=== PATIENT | female | born 1965 | race Caucasian/White ===

== ENCOUNTER 2017-12-24 08:28 | Emergency (ER) | payer MEDICAID ==
[~2017-12-24] VITALS: Ht 157.5 cm; Wt 66.4 kg
[~2017-12-24 08:28] MED LIST: BUSP10TA3 PO; CIPR2.5D18 LEFTEYE; EMOL200L TP; ESCI20TA38 PO; LACT1CAP26 PO; LIDO700A32 TOP; MELO-100 PO; MULT-1179 PO; NAPAOS EACHEYE; PANT-47 PO; TRAZ-143 PO
[2017-12-24 08:48] VITALS: BP 109/61
[2017-12-24] MEDS ORDERED: HYDR-3965 PO (10:05)
== END 2017-12-24 10:16 | disposition home or self-care (01) ==
LOC: ER 08:28
DX: S22.31XA Fracture of one rib, right side, initial encounter for closed fracture (principal); Z79.899 Other long term (current) drug therapy; I10 Essential (primary) hypertension; F41.9 Anxiety disorder, unspecified; F32.9 Major depressive disorder, single episode, unspecified; V29.9XXA Motorcycle rider (driver) (passenger) injured in unspecified traffic accident, initial encounter; Y93.89 Activity, other specified; Y92.89 Other specified places as the place of occurrence of the external cause; Y99.8 Other external cause status
CPT/HCPCS: 71100; 99284

== ENCOUNTER 2018-01-26 07:52 | Emergency (ER) | payer MEDICAID ==
[~2018-01-26] VITALS: Ht 157.5 cm; Wt 66.8 kg
[2018-01-26 07:54] VITALS: BP 113/81
[2018-01-26] MEDS ORDERED: CEPH500C5 PO (08:06)
== END 2018-01-26 08:21 | disposition home or self-care (01) ==
LOC: ER 07:52
DX: L03.032 Cellulitis of left toe (principal); I10 Essential (primary) hypertension; Z79.899 Other long term (current) drug therapy; Z60.2 Problems related to living alone
CPT/HCPCS: 99283; L3260; 29515

== ENCOUNTER 2018-02-01 14:27 | Emergency (ER) | payer MEDICAID ==
[~2018-02-01] VITALS: Ht 157.5 cm; Wt 66.0 kg
[~2018-02-01 14:27] MED LIST changes: +CEPH500C5 PO
[2018-02-01 14:32] VITALS: BP 100/63
[2018-02-01] MEDS ORDERED: CEPH500C5 PO (15:12)
== END 2018-02-01 15:34 | disposition home or self-care (01) ==
LOC: ER 14:27
DX: L03.031 Cellulitis of right toe (principal); I10 Essential (primary) hypertension; Z79.899 Other long term (current) drug therapy; Z60.2 Problems related to living alone
CPT/HCPCS: 99284

== ENCOUNTER 2018-02-04 07:20 | Inpatient (IN) | payer MEDICAID ==
[~2018-02-04] VITALS: Ht 159.3 cm; Wt 67.7 kg
[2018-02-04] MEDS ORDERED: vancomycin/NS 1 GM ADD-VANTAGE 250 ML X 1 DOSE IV ONE (08:15)
[2018-02-04 08:23] LABS: BASOPHILS % (AUTO) 0.4 % (0-1); EOSINOPHILS # (AUTO) 0.1 X10'3 (0-0.9); EOSINOPHILS % (AUTO) 1.1 % (0-6); LYMPHOCYTES # (AUTO) 1.1 X10'3 (1.1-4.8); LYMPHOCYTES % (AUTO) 14.7 % (21-51); MEAN CORPUSCULAR HEMOGLOBIN 35.2 PG (27.0-31.0); MEAN CORPUSCULAR HGB CONC 34.3 % (33.0-36.5); MEAN CORPUSCULAR VOLUME 102.6 FL (78-98); MEAN PLATELET VOLUME 6.4 FL (7.4-10.4); MONOCYTES # (AUTO) 0.7 X10'3 (0-0.9); MONOCYTES % (AUTO) 9.5 % (2-12); NEUTROPHILS # (AUTO) 5.8 X10'3 (1.8-7.7); NEUTROPHILS % (AUTO) 74.3 % (42-75); PLATELET COUNT 355 X10'3 (140-440); RED CELL DISTRIBUTION WIDTH 16.1 % (11.5-14.5); WHITE BLOOD COUNT 7.8 X10'3 (4.5-11.0)
[2018-02-04 08:37] LABS: ALANINE AMINOTRANSFERASE 28 U/L (12-78); ALBUMIN 3.2 G/DL (3.4-5.0); ALBUMIN/GLOBULIN RATIO 0.7 (1.1-1.5); ALKALINE PHOSPHATASE 91 IU/L (46-116); ANION GAP 14 (8-16); ASPARTATE AMINO TRANSFERASE 19 U/L (10-37); BILIRUBIN,TOTAL 0.3 MG/DL (0.1-1.0); BLOOD UREA NITROGEN 9 MG/DL (7-18); BUN/CREATININE RATIO 12.9 (6.6-38.0); CALCIUM 9.2 MG/DL (8.5-10.1); CHLORIDE 102 MMOL/L (99-107); GLUCOSE 100 MG/DL (70-104); MAGNESIUM 1.5 MG/DL (1.5-2.4); POTASSIUM 3.5 MMOL/L (3.5-5.1); SODIUM 140 MMOL/L (135-145); TOTAL CARBON DIOXIDE 24.1 MMOL/L (24-32); TOTAL PROTEIN 7.9 G/DL (6.4-8.2); eGFR 87 ML/MIN
[2018-02-04 08:45] LABS: INR 0.9 INR; PARTIAL THROMBOPLASTIN TIME 26 SECONDS (22-32); PROTHROMBIN TIME 9.7 SECONDS (9.0-12.0)
[2018-02-04] MEDS ORDERED: normal saline 1000ML IV soln IVB ONE (08:55)
[2018-02-04 08:59] LABS: CLARITY,URINE CLOUDY (Clear); COLOR,URINE YELLOW (Yellow); GLUCOSE, URINE NEGATIVE (Neg); KETONES,URINE TRACE mg/dl (Neg); LEUKOCYTE ESTERASE ,URINE SMALL (Neg); NITRITES, URINE POSITIVE (Neg); OCCULT BLOOD,URINE LARGE (Neg); PH,URINE 5.5 (4.8-8.0); PROTEIN,URINE 100 mg/dl (Neg); UROBILINOGEN,URINE 0.2 E.U/dL (0.2-1.0)
[2018-02-04] MEDS ORDERED: piperacillin/tazo 3.375gm/50ml 50 ML IV SCH (09:05)
[2018-02-04 09:06] LABS: UA COLLECTION TYPE CLN CATCH MIDSTREAM
[2018-02-04] MEDS ORDERED: piperacillin/tazo 3.375gm/50ml 50 ML IV ONE (09:10)
[2018-02-04 09:13] LABS: BACTERIA,URINE 4+ /HPF (Neg); MUCUS STRANDS MANY /LPF (Neg); SQUAMOUS EPITHELIAL CELL,UR MANY /LPF (FEW); WBC,URINE 50-100 /HPF (0-4)
[2018-02-04] MEDS ORDERED: morphine 4 MG/ML inj SYRINge IV PRN ×2 (09:20)
[2018-02-04] MEDS ORDERED: ondansetron/PF 4mg/2ml inj IV PRN (09:20)
[2018-02-04] MEDS ORDERED: diphenhydrAMINE 25mg capsule PO PRN (09:20)
[2018-02-04] MEDS ORDERED: magnesium 4gm in 100ml NS 100 ML IV PRN (09:20)
[2018-02-04] MEDS ORDERED: HYDROcodone/acetaminophen 10/325mg tab PO PRN (09:20)
[2018-02-04] MEDS ORDERED: mag hydrox/Alum hydrox/simeth 30ml oral suspension PO PRN (09:20)
[2018-02-04] MEDS ORDERED: magnesium 1gm/100ml D5W IVPB 50 ML IV PRN (09:20)
[2018-02-04] MEDS ORDERED: acetaminophen 325mg tablet PO PRN ×2 (09:20)
[2018-02-04] MEDS ORDERED: magnesium Cl slow-release 64mg tablet PO PRN (09:20)
[2018-02-04] MEDS ORDERED: magnesium hydroxide 30ml (MOM) UD suspension PO PRN (09:20)
[2018-02-04] MEDS ORDERED: potassium Cl 20 mEq SR tablet PO PRN ×2 (09:20)
[2018-02-04] MEDS ORDERED: potassium Cl 40MEQ/NS 500ml 500 ML IV PRN ×2 (09:20)
[2018-02-04 10:02] LABS: URINE AMPHETAMINE SCREEN NEGATIVE (Neg); URINE BARBITUATE SCREEN NEGATIVE (Neg); URINE BENZODIAZEPINES SCREEN NEGATIVE (Neg); URINE CANNABINOID SCREEN NEGATIVE (Neg); URINE COCAINE SCREEN NEGATIVE (Neg); URINE METHADONE SCREEN NEGATIVE (Neg); URINE OPIATE SCREEN NEGATIVE (Neg); URINE PHENCYCLIDINE SCREEN NEGATIVE (Neg)
[2018-02-04] MEDS ORDERED: TOBR5DRO57 OP (10:20)
[2018-02-04] MEDS ORDERED: PRAZ1CAP5 PO (10:20)
[2018-02-04] MEDS ORDERED: KETO5DRO75 OP (10:20)
[2018-02-04] MEDS ORDERED: LORA10TA7 PO (10:20)
[2018-02-04] MEDS ORDERED: BUSP10TA11 PO (10:20)
[2018-02-04] MEDS ORDERED: HYDR-3965 PO (10:20)
[2018-02-04] MEDS ORDERED: LISI-600 PO (10:20)
[2018-02-04] MEDS ORDERED: FLUT16SP18 NAS (10:20)
[2018-02-04] MEDS ORDERED: ZOLP5TAB8 PO (10:22)
[2018-02-04] MEDS ORDERED: haloperidol lactate 5mg/ml inj IM PRN ×2 (11:15→14:40)
[2018-02-04] MEDS ORDERED: LORazepam 2 mg/ml vial IV PRN ×2 (11:15→14:40)
[2018-02-04] MEDS ORDERED: haloperidol 5mg tablet PO PRN ×2 (11:15→14:40)
[2018-02-04] MEDS ORDERED: thiamine inj. 100 MG in normal saline 100ml IV soln 100 ML IV ONE ×2 (11:15→14:40)
[2018-02-04] MEDS: K and/or MAG REPLACEMENT MC SCH (11:51)
[2018-02-04 11:53] LABS: ETHANOL 0.204 GM/DL (0.0-0.010)
[2018-02-04] MEDS: normal saline 1000ml 1,000 ML IV SCH ×2 (12:34→17:20)
[2018-02-04 12:36] VITALS: BP 163/95
[2018-02-04] MEDS: piperacillin-tazo 2.25gm/50ml 50 ML IV SCH ×2 (14:12→20:20)
[2018-02-04] MEDS ORDERED: fluticasone nasal spray 16GM bottle NS PRN (14:30)
[2018-02-04] MEDS ORDERED: hydrALAZINE 20mg/ml inj. IV PRN (14:40)
[2018-02-04] MEDS ORDERED: hydrALAZINE 20mg/ml inj. IV ONE (14:40)
[2018-02-04] MEDS ORDERED: morphine 2 MG/ML inj. syringe IV PRN ×2 (15:09)
[2018-02-04 15:39] VITALS: BP 164/102
[2018-02-04 16:27] VITALS: BP 165/102
[2018-02-04] MEDS ORDERED: gadopentetate dimeglumine 7.5 MMOL/15 ML syringe ONE (17:41)
[2018-02-04 18:00] VITALS: BP 153/99
[2018-02-04 18:05] LABS: CLARITY,URINE CLEAR (Clear); COLOR,URINE STRAW (Yellow); GLUCOSE, URINE NEGATIVE (Neg); KETONES,URINE TRACE mg/dl (Neg); LEUKOCYTE ESTERASE ,URINE NEGATIVE (Neg); NITRITES, URINE NEGATIVE (Neg); OCCULT BLOOD,URINE SMALL (Neg); PH,URINE 5.5 (4.8-8.0); PROTEIN,URINE NEGATIVE (Neg); UROBILINOGEN,URINE 0.2 E.U/dL (0.2-1.0)
[2018-02-04 18:11] LABS: UA COLLECTION TYPE STRAIGHT CATH
[2018-02-04 18:12] LABS: HYALINE CASTS 0-3 /LPF (NEGATIVE); SQUAMOUS EPITHELIAL CELL,UR FEW /LPF (FEW)
[2018-02-04 18:13] LABS: BACTERIA,URINE NONE SEEN /HPF (Neg); WBC,URINE 0-4 /HPF (0-4)
[2018-02-04] MEDS: HYDROcodone/acetaminophen 5mg/325mg tablet PO PRN (19:06)
[2018-02-04] MEDS ORDERED: lactobacillus rhamnosus 10,000 MMU CELLS/CAPSULE PO SCH (20:00)
[2018-02-04 20:20] VITALS: BP 138/92
[2018-02-04] MEDS: prazosin 1mg capsule PO SCH (20:21)
[2018-02-04] MEDS: heparin, porcine 5000 units/ml vial SQ SCH (20:21)
[2018-02-04] MEDS: busPIRone 15mg tablet PO SCH (20:22)
[2018-02-04] MEDS: lactobacillus rhamnosus 10,000 MMU CELLS/CAPSULE PO SCH (20:22)
[2018-02-04] MEDS ORDERED: VANCOMYCIN LEVEL IV ONE (20:30)
[2018-02-04] MEDS: zolpidem 5mg tablet PO PRN (20:32)
[2018-02-04] MEDS: vancomycin/NS 1 GM ADD-VANTAGE 250 ML IV SCH (21:27)
[2018-02-04] MEDS: LORazepam 1 MG tablet PO PRN (22:32)
[2018-02-04 23:29] VITALS: BP 96/57
[2018-02-05] MEDS: piperacillin-tazo 2.25gm/50ml 50 ML IV SCH ×4 (01:28→20:38)
[2018-02-05] MEDS: normal saline 1000ml 1,000 ML IV SCH ×3 (03:17→17:06)
[2018-02-05 05:03] LABS: BASOPHILS # (AUTO) 0.1 X10'3 (0-0.2); BASOPHILS % (AUTO) 1.1 % (0-1); EOSINOPHILS # (AUTO) 0.1 X10'3 (0-0.9); EOSINOPHILS % (AUTO) 1.3 % (0-6); HEMATOCRIT 35.7 % (35.0-45.0); HEMOGLOBIN 12.3 g/dl (12.0-16.0); LYMPHOCYTES % (AUTO) 19.6 % (21-51); MEAN CORPUSCULAR HEMOGLOBIN 35.2 PG (27.0-31.0); MEAN CORPUSCULAR HGB CONC 34.3 % (33.0-36.5); MEAN CORPUSCULAR VOLUME 102.4 FL (78-98); MONOCYTES # (AUTO) 0.6 X10'3 (0-0.9); MONOCYTES % (AUTO) 11.7 % (2-12); NEUTROPHILS # (AUTO) 3.3 X10'3 (1.8-7.7); NEUTROPHILS % (AUTO) 66.3 % (42-75); PLATELET COUNT 302 X10'3 (140-440); RED BLOOD COUNT 3.48 X10'6 (4.20-5.60); RED CELL DISTRIBUTION WIDTH 15.3 % (11.5-14.5)
[2018-02-05 05:11] LABS: INR 0.9 INR; PROTHROMBIN TIME 9.8 SECONDS (9.0-12.0)
[2018-02-05 05:29] LABS: ALANINE AMINOTRANSFERASE 18 U/L (12-78); ALBUMIN 2.5 G/DL (3.4-5.0); ALBUMIN/GLOBULIN RATIO 0.6 (1.1-1.5); ALKALINE PHOSPHATASE 81 IU/L (46-116); AMYLASE 40 U/L (25-115); ANION GAP 11 (8-16); ASPARTATE AMINO TRANSFERASE 16 U/L (10-37); BILIRUBIN,TOTAL 0.6 MG/DL (0.1-1.0); BLOOD UREA NITROGEN 10 MG/DL (7-18); BUN/CREATININE RATIO 14.3 (6.6-38.0); CALCIUM 8.4 MG/DL (8.5-10.1); CHLORIDE 103 MMOL/L (99-107); GLUCOSE 80 MG/DL (70-104); LIPASE 67 U/L (73-393); MAGNESIUM 1.5 MG/DL (1.5-2.4); PHOSPHORUS 4.6 MG/DL (2.3-4.5); POTASSIUM 3.7 MMOL/L (3.5-5.1); SODIUM 139 MMOL/L (135-145); TOTAL CARBON DIOXIDE 25.2 MMOL/L (24-32); TOTAL PROTEIN 6.4 G/DL (6.4-8.2); eGFR 87 ML/MIN
[2018-02-05 07:16] VITALS: BP 124/88
[2018-02-05] MEDS: K and/or MAG REPLACEMENT MC SCH (07:19)
[2018-02-05] MEDS: multivitamins, therapeutics tablet PO SCH (07:25)
[2018-02-05] MEDS: busPIRone 15mg tablet PO SCH ×3 (07:25→20:41)
[2018-02-05] MEDS: pantoprazole 40mg Tablet.DR PO SCH (07:25)
[2018-02-05] MEDS: citalopram 20mg tablet PO SCH (07:25)
[2018-02-05] MEDS: folic acid 1mg tablet PO SCH (07:25)
[2018-02-05] MEDS: lisinopril 10 MG tablet PO SCH (07:25)
[2018-02-05] MEDS: lactobacillus rhamnosus 10,000 MMU CELLS/CAPSULE PO SCH ×2 (07:26→20:37)
[2018-02-05] MEDS: thiamine 100mg tablet PO SCH (07:26)
[2018-02-05] MEDS: heparin, porcine 5000 units/ml vial SQ SCH ×2 (07:26→20:42)
[2018-02-05] MEDS: loratadine 10mg tablet PO SCH (07:26)
[2018-02-05] MEDS: emollient combination-Eucerin 250 ML LOTION TP SCH (07:35)
[2018-02-05] MEDS ORDERED: folic acid 1mg tablet PO SCH (08:00)
[2018-02-05] MEDS ORDERED: thiamine 100mg tablet PO SCH (08:00)
[2018-02-05] MEDS ORDERED: multivitamins, therapeutics tablet PO SCH (08:00)
[2018-02-05] MEDS ORDERED: folic acid inj. 2 MG, thiamine inj. 100 MG, MVI, adult No.4 with vit. K 10 ML in dextro... IV SCH ×4 (08:00)
[2018-02-05] MEDS: vancomycin/NS 1 GM ADD-VANTAGE 250 ML IV SCH ×2 (08:32→21:56)
[2018-02-05] MEDS: LORazepam 1 MG tablet PO PRN (08:36)
[2018-02-05 11:49] VITALS: BP 118/85
[2018-02-05] MEDS: HYDROcodone/acetaminophen 5mg/325mg tablet PO PRN (19:25)
[2018-02-05 20:00] VITALS: BP 139/87
[2018-02-05] MEDS ORDERED: VANCOMYCIN LEVEL IV ONE (20:30)
[2018-02-05] MEDS: prazosin 1mg capsule PO SCH (20:41)
[2018-02-05] MEDS: zolpidem 5mg tablet PO PRN (20:47)
[2018-02-06] VITALS: BP 133/89
[2018-02-06] MEDS: LORazepam 1 MG tablet PO PRN ×2 (00:51→07:24)
[2018-02-06] MEDS: normal saline 1000ml 1,000 ML IV SCH ×2 (01:20→05:06)
[2018-02-06] MEDS: piperacillin-tazo 2.25gm/50ml 50 ML IV SCH ×3 (02:04→13:31)
[2018-02-06] MEDS: HYDROcodone/acetaminophen 5mg/325mg tablet PO PRN ×2 (04:16→11:29)
[2018-02-06 04:39] LABS: BASOPHILS % (AUTO) 0.5 % (0-1); EOSINOPHILS # (AUTO) 0.1 X10'3 (0-0.9); EOSINOPHILS % (AUTO) 1.5 % (0-6); HEMATOCRIT 33.5 % (35.0-45.0); HEMOGLOBIN 11.3 g/dl (12.0-16.0); MEAN CORPUSCULAR HEMOGLOBIN 34.6 PG (27.0-31.0); MEAN CORPUSCULAR HGB CONC 33.8 % (33.0-36.5); MEAN CORPUSCULAR VOLUME 102.3 FL (78-98); MONOCYTES # (AUTO) 0.5 X10'3 (0-0.9); MONOCYTES % (AUTO) 9.3 % (2-12); NEUTROPHILS # (AUTO) 3.5 X10'3 (1.8-7.7); NEUTROPHILS % (AUTO) 69.7 % (42-75); PLATELET COUNT 287 X10'3 (140-440); RED BLOOD COUNT 3.27 X10'6 (4.20-5.60); RED CELL DISTRIBUTION WIDTH 15.8 % (11.5-14.5)
[2018-02-06 05:06] LABS: ALANINE AMINOTRANSFERASE 15 U/L (12-78); ALBUMIN 2.3 G/DL (3.4-5.0); ALBUMIN/GLOBULIN RATIO 0.6 (1.1-1.5); ALKALINE PHOSPHATASE 65 IU/L (46-116); AMYLASE 39 U/L (25-115); ANION GAP 8 (8-16); ASPARTATE AMINO TRANSFERASE 13 U/L (10-37); BILIRUBIN,TOTAL 0.3 MG/DL (0.1-1.0); BLOOD UREA NITROGEN 10 MG/DL (7-18); BUN/CREATININE RATIO 15.9 (6.6-38.0); CHLORIDE 108 MMOL/L (99-107); CREATININE 0.63 MG/DL (0.40-0.90); GLUCOSE 100 MG/DL (70-104); LIPASE 77 U/L (73-393); MAGNESIUM 1.5 MG/DL (1.5-2.4); POTASSIUM 3.6 MMOL/L (3.5-5.1); SODIUM 142 MMOL/L (135-145); TOTAL CARBON DIOXIDE 26.1 MMOL/L (24-32); eGFR > 90 ML/MIN
[2018-02-06 07:00] VITALS: BP 149/97
[2018-02-06] MEDS: loratadine 10mg tablet PO SCH (07:24)
[2018-02-06] MEDS: lactobacillus rhamnosus 10,000 MMU CELLS/CAPSULE PO SCH (07:24)
[2018-02-06] MEDS: pantoprazole 40mg Tablet.DR PO SCH (07:24)
[2018-02-06] MEDS: folic acid 1mg tablet PO SCH (07:24)
[2018-02-06] MEDS: multivitamins, therapeutics tablet PO SCH (07:24)
[2018-02-06] MEDS: thiamine 100mg tablet PO SCH (07:25)
[2018-02-06] MEDS: citalopram 20mg tablet PO SCH (07:25)
[2018-02-06] MEDS: heparin, porcine 5000 units/ml vial SQ SCH (07:25)
[2018-02-06] MEDS: busPIRone 15mg tablet PO SCH ×2 (07:25→12:35)
[2018-02-06] MEDS: lisinopril 10 MG tablet PO SCH (07:25)
[2018-02-06] MEDS: K and/or MAG REPLACEMENT MC SCH (08:00)
[2018-02-06] MEDS: emollient combination-Eucerin 250 ML LOTION TP SCH (09:50)
[2018-02-06 11:07] VITALS: BP 153/86
[2018-02-06] MEDS ORDERED: CEPH500C5 PO (12:43)
[2018-02-06] MEDS ORDERED: HYDR-569 PO (12:44)
[2018-02-06] MEDS ORDERED: LORazepam 1 MG tablet PO PRN (14:40)
[2018-02-06] MEDS ORDERED: LORazepam 2 mg/ml vial IV PRN (14:40)
[2018-02-07] MEDS ORDERED: VANCOMYCIN LEVEL IV ONE (19:30)
[2018-02-08] MEDS ORDERED: LORazepam 1 MG tablet PO PRN (14:40)
[2018-02-08] MEDS ORDERED: LORazepam 2 mg/ml vial IV PRN (14:40)
== END 2018-02-06 16:00 | disposition home or self-care (01) | DRG 383 ==
LOC: ER 07:21 → ED HOLD 09:20 → SUR 3N 12:12
PROVIDERS: ADMIT Family Medicine; ATTEND Family Medicine
DX: L03.032 Cellulitis of left toe (principal); E87.2 Acidosis; E10.51 Type 1 diabetes mellitus with diabetic peripheral angiopathy without gangrene; G30.9 Alzheimer's disease, unspecified; F02.80 Dementia in other diseases classified elsewhere, unspecified severity, without behavioral disturbance, psychotic disturbance, mood disturbance, and anxiety; N39.0 Urinary tract infection, site not specified; F32.9 Major depressive disorder, single episode, unspecified; F41.9 Anxiety disorder, unspecified; I25.10 Atherosclerotic heart disease of native coronary artery without angina pectoris; F10.10 Alcohol abuse, uncomplicated; E78.00 Pure hypercholesterolemia, unspecified; B95.0 Streptococcus, group A, as the cause of diseases classified elsewhere; I10 Essential (primary) hypertension; Z84.1 Family history of disorders of kidney and ureter; Z80.8 Family history of malignant neoplasm of other organs or systems; Z82.49 Family history of ischemic heart disease and other diseases of the circulatory system; Z90.49 Acquired absence of other specified parts of digestive tract; Z85.41 Personal history of malignant neoplasm of cervix uteri; Z79.899 Other long term (current) drug therapy
CPT/HCPCS: 36415; 71045; 73660; 73720; 80053; 80202; 80305; 80320; 81001; 82150; 82948; 83605; 83690; 83735; 84100; 84145; 85025; 85610; 85730; 87040; 87070; 87077; 87088; 87186; 93005; 96365; 97116; 97162; 99285; A4353; A6212; A6258; A6449; A9579; J0360; J1644; J2405; J2543; J3370; J3411; J3490; J7030; J7060

== ENCOUNTER 2018-02-08 07:02 | Emergency (ER) | payer MEDICAID ==
[~2018-02-08] VITALS: Ht 322.6 cm; Wt 67.0 kg
[~2018-02-08 07:02] MED LIST changes: +BUSP10TA11 PO; +FLUT16SP18 NAS; +HYDR-3965 PO; +HYDR-569 PO; +KETO5DRO75 OP; +LISI-600 PO; +LORA10TA7 PO; +PRAZ1CAP5 PO; +TOBR5DRO57 OP; +ZOLP5TAB8 PO
[2018-02-08 07:24] VITALS: BP 141/103
[2018-02-08] MEDS ORDERED: SULF1TAB49 PO (07:44)
== END 2018-02-08 07:55 | disposition home or self-care (01) ==
LOC: ER 07:03
DX: Z48.01 Encounter for change or removal of surgical wound dressing (principal); L08.9 Local infection of the skin and subcutaneous tissue, unspecified; I10 Essential (primary) hypertension; Z79.899 Other long term (current) drug therapy
CPT/HCPCS: 99283

== ENCOUNTER 2018-04-18 19:50 | Emergency (ER) | payer MEDICAID ==
[~2018-04-18] VITALS: Ht 552.4 cm; Wt 62.0 kg
[~2018-04-18 19:50] MED LIST changes: -BUSP10TA3 PO; -CIPR2.5D18 LEFTEYE; -HYDR-3965 PO; -KETO5DRO75 OP; -LIDO700A32 TOP; -MELO-100 PO; -NAPAOS EACHEYE; -TRAZ-143 PO
[2018-04-18 20:12] VITALS: BP 119/87
[2018-04-19] MEDS ORDERED: TRAM50TA2 PO (01:04)
== END 2018-04-18 22:29 | disposition left against medical advice (07) ==
LOC: ER 19:51
DX: F10.239 Alcohol dependence with withdrawal, unspecified (principal); Z53.21 Procedure and treatment not carried out due to patient leaving prior to being seen by health care provider

== ENCOUNTER 2018-04-18 23:12 | Emergency (ER) | payer MEDICAID ==
[~2018-04-18] VITALS: Ht 157.5 cm; Wt 57.5 kg
[2018-04-19] MEDS ORDERED: TRAM50TA2 PO (01:04)
[2018-04-19 01:18] VITALS: BP 124/91
== END 2018-04-19 01:19 | disposition home or self-care (01) ==
LOC: ER 23:15
DX: R10.84 Generalized abdominal pain (principal); I10 Essential (primary) hypertension; F10.20 Alcohol dependence, uncomplicated; Z79.899 Other long term (current) drug therapy; Z60.2 Problems related to living alone; Y90.9 Presence of alcohol in blood, level not specified
CPT/HCPCS: 99283

== ENCOUNTER 2018-04-25 18:58 | Emergency (ER) | payer MEDICAID ==
[~2018-04-25] VITALS: Ht 157.5 cm; Wt 65.0 kg
[~2018-04-25 18:58] MED LIST changes: +TRAM50TA2 PO
[2018-04-25 19:07] VITALS: BP 103/73
== END 2018-04-25 21:57 | disposition home or self-care (01) ==
LOC: ER 18:59
DX: S00.83XA Contusion of other part of head, initial encounter (principal); I10 Essential (primary) hypertension; Z98.890 Other specified postprocedural states; Z79.2 Long term (current) use of antibiotics; Z79.899 Other long term (current) drug therapy; Y04.8XXA Assault by other bodily force, initial encounter; Y93.84 Activity, sleeping; Y92.241 Library as the place of occurrence of the external cause; Y99.8 Other external cause status
CPT/HCPCS: 99282

== ENCOUNTER 2018-05-06 16:26 | Emergency (ER) | payer MEDICAID ==
[~2018-05-06] VITALS: Ht 157.5 cm; Wt 66.4 kg
[~2018-05-06 16:26] MED LIST changes: +HYDR-4383 PO; -HYDR-569 PO
[2018-05-06 16:34] VITALS: BP 152/109
== END 2018-05-06 17:23 | disposition home or self-care (01) ==
LOC: ER 16:27
DX: J02.9 Acute pharyngitis, unspecified (principal); I10 Essential (primary) hypertension; Z98.890 Other specified postprocedural states; Z87.01 Personal history of pneumonia (recurrent); Z79.899 Other long term (current) drug therapy
CPT/HCPCS: 99281

== ENCOUNTER 2018-10-14 12:34 | Emergency (ER) | payer MEDICAID ==
[~2018-10-14] VITALS: Ht 157.5 cm; Wt 65.9 kg
[~2018-10-14 12:34] MED LIST changes: +PHE12.5T PO; -TRAM50TA2 PO
[2018-10-14 12:51] VITALS: BP 118/83
== END 2018-10-14 13:23 | disposition home or self-care (01) ==
LOC: ER 12:35
DX: R42 Dizziness and giddiness (principal); I10 Essential (primary) hypertension; Z98.890 Other specified postprocedural states; Z79.899 Other long term (current) drug therapy
CPT/HCPCS: 99281

== ENCOUNTER 2019-02-22 19:41 | Emergency (ER) | payer MEDICAID ==
[~2019-02-22] VITALS: Ht 157.5 cm; Wt 65.0 kg
[~2019-02-22 19:41] MED LIST changes: -CEPH500C5 PO; -PHE12.5T PO; +PROM12.512 PO
--- NOTE | 2019-02-22 20:10 | NUR ---
Patient is A&Ox3, BILLY and is appropriate. She reports having a hernia repair and bowel resection on 02/[address] Bee at [facility]. She reports abdominal pain, nausea and vomitting today, I will continue to monitor.
[2019-02-22 20:21] LABS: BASOPHILS # (AUTO) 0.1 X10'3 (0-0.2); EOSINOPHILS # (AUTO) 0.1 X10'3 (0-0.9); MEAN PLATELET VOLUME 7.1 FL (7.4-10.4); NEUTROPHILS # (AUTO) 7.1 X10'3 (1.8-7.7)
[2019-02-22 20:22] LABS: BASOPHILS % (AUTO) 1.2 % (0-1); EOSINOPHILS % (AUTO) 0.8 % (0-6); HEMATOCRIT 35.5 % (35.0-45.0); HEMOGLOBIN 12.1 g/dl (12.0-16.0); LYMPHOCYTES # (AUTO) 1.8 X10'3 (1.1-4.8); LYMPHOCYTES % (AUTO) 18.5 % (21-51); MEAN CORPUSCULAR HEMOGLOBIN 33.1 PG (27.0-31.0); MEAN CORPUSCULAR VOLUME 97.2 FL (78-98); MONOCYTES # (AUTO) 0.6 X10'3 (0-0.9); MONOCYTES % (AUTO) 6.2 % (2-12); NEUTROPHILS % (AUTO) 73.3 % (42-75); PLATELET COUNT 970 X10'3 (140-440); RED BLOOD COUNT 3.66 X10'6 (4.20-5.60); WHITE BLOOD COUNT 9.6 X10'3 (4.5-11.0)
[2019-02-22 20:32] LABS: ALANINE AMINOTRANSFERASE 16 U/L (12-78); ALBUMIN 3.2 G/DL (3.4-5.0); ALBUMIN/GLOBULIN RATIO 0.7 (1.1-1.5); ALKALINE PHOSPHATASE 95 IU/L (46-116); ANION GAP 16 (8-16); ASPARTATE AMINO TRANSFERASE 14 U/L (10-37); BILIRUBIN,TOTAL 0.3 MG/DL (0.1-1.0); BLOOD UREA NITROGEN 4 MG/DL (7-18); BUN/CREATININE RATIO 6.8 (6.6-38.0); CALCIUM 9.2 MG/DL (8.5-10.1); CHLORIDE 100 MMOL/L (99-107); CREATININE 0.59 MG/DL (0.40-0.90); GLUCOSE 94 MG/DL (70-104); SODIUM 141 MMOL/L (135-145); TOTAL CARBON DIOXIDE 25.2 MMOL/L (24-32); TOTAL PROTEIN 8.1 G/DL (6.4-8.2); eGFR > 90 ML/MIN
[2019-02-22 20:34] LABS: PARTIAL THROMBOPLASTIN TIME 31 SECONDS (22-32)
[2019-02-22] MEDS ORDERED: HYDROcodone/acetaminophen 5mg/325mg tablet PO ONE ×2 (20:45→23:25)
--- NOTE | 2019-02-22 21:11 | NUR ---
Pending discharge papers, patient is resting comfortably on gurney.
[2019-02-22 21:18] LABS: CLARITY,URINE CLEAR (Clear); COLOR,URINE YELLOW (Yellow); GLUCOSE, URINE NEGATIVE (Neg); KETONES,URINE NEGATIVE (Neg); LEUKOCYTE ESTERASE ,URINE NEGATIVE (Neg); NITRITES, URINE NEGATIVE (Neg); OCCULT BLOOD,URINE SMALL (Neg); PROTEIN,URINE NEGATIVE (Neg); UROBILINOGEN,URINE 0.2 E.U/dL (0.2-1.0)
[2019-02-22 21:22] LABS: UA COLLECTION TYPE VOIDED
[2019-02-22] MEDS ORDERED: iohexol 300mg/ml 100ml inj. ONE (21:22)
[2019-02-22 21:36] LABS: BACTERIA,URINE FEW /HPF (Neg); MUCUS STRANDS NONE SEEN /LPF (Neg); RBC,URINE 0-2 /HPF (0-2); SQUAMOUS EPITHELIAL CELL,UR FEW /LPF (FEW); WBC,URINE 0-4 /HPF (0-4)
--- NOTE | 2019-02-22 21:40 | NUR ---
Patient just back for CT.
[2019-02-22] MEDS ORDERED: normal saline 1000ML IV soln IVB ONE (22:40)
[2019-02-22] MEDS ORDERED: levoFLOXACIN-Levaquin 750MG/D5 150 ML IV ONE (22:40)
--- NOTE | 2019-02-22 22:52 | NUR ---
CALLED DR. PEDRAZA VIA PERSONAL CELL PHONE. Jeramy BOLTON ON PHONE WITH DR. PEDRAZA
[2019-02-22] MEDS ORDERED: piperacillin/tazo 3.375gm/50ml 50 ML IV ONE (22:55)
[2019-02-22] MEDS ORDERED: HYDR-3965 PO (23:24)
--- NOTE | 2019-02-23 00:29 | NUR ---
Patient up to the bathroom
[2019-02-23 00:52] VITALS: BP 109/79
[2019-02-23 10:22] LABS: PLATELET ESTIMATE INCREASED; TOTAL CELLS COUNTED 100
[2019-02-23 10:24] LABS: ANISOCYTOSIS FEW
[2019-02-23 10:25] LABS: HYPERSEGMENTED NEUTROPHILS FEW; POLYCHROMASIA FEW; SPHEROCYTES FEW
== END 2019-02-23 00:53 | disposition home or self-care (01) ==
LOC: ER 19:41
DX: K91.89 Other postprocedural complications and disorders of digestive system (principal); L02.211 Cutaneous abscess of abdominal wall; R10.31 Right lower quadrant pain; R10.32 Left lower quadrant pain; I10 Essential (primary) hypertension; F41.9 Anxiety disorder, unspecified; F32.9 Major depressive disorder, single episode, unspecified; F10.10 Alcohol abuse, uncomplicated; Z85.89 Personal history of malignant neoplasm of other organs and systems; Z98.890 Other specified postprocedural states; Z60.2 Problems related to living alone; Z79.899 Other long term (current) drug therapy; Y90.9 Presence of alcohol in blood, level not specified
CPT/HCPCS: 36415; 71045; 74177; 80053; 81001; 83605; 84145; 85025; 85610; 85730; 87040; 96365; 96367; 99284; J1956; J2543; J7030; Q9967

== ENCOUNTER 2019-03-03 17:46 | Inpatient (IN) | payer MEDICAID ==
[~2019-03-03] VITALS: Ht 157.5 cm; Wt 62.0 kg
[2019-03-03] MEDS ORDERED: normal saline 1000ml 1,000 ML IVB ONE (18:27)
[2019-03-03 18:29] LABS: BASOPHILS % (AUTO) 0.8 % (0-1); EOSINOPHILS % (AUTO) 0 % (0-6); HEMATOCRIT 37.8 % (35.0-45.0); HEMOGLOBIN 12.7 g/dl (12.0-16.0); LYMPHOCYTES # (AUTO) 1.4 X10'3 (1.1-4.8); LYMPHOCYTES % (AUTO) 28.9 % (21-51); MEAN CORPUSCULAR HEMOGLOBIN 33.2 PG (27.0-31.0); MEAN CORPUSCULAR HGB CONC 33.6 g/dL (33.0-36.5); MEAN CORPUSCULAR VOLUME 98.7 FL (78-98); MEAN PLATELET VOLUME 6.3 FL (7.4-10.4); MONOCYTES # (AUTO) 0.3 X10'3 (0-0.9); MONOCYTES % (AUTO) 5.6 % (2-12); NEUTROPHILS # (AUTO) 3.1 X10'3 (1.8-7.7); NEUTROPHILS % (AUTO) 64.7 % (42-75); PLATELET COUNT 411 X10'3 (140-440); RED BLOOD COUNT 3.83 X10'6 (4.20-5.60); RED CELL DISTRIBUTION WIDTH 15.5 % (11.5-14.5); WHITE BLOOD COUNT 4.8 X10'3 (4.5-11.0)
[2019-03-03 18:39] LABS: ALANINE AMINOTRANSFERASE 19 U/L (12-78); ALBUMIN 3.7 G/DL (3.4-5.0); ALBUMIN/GLOBULIN RATIO 0.8 (1.1-1.5); ALKALINE PHOSPHATASE 94 IU/L (46-116); ANION GAP 22 (8-16); ASPARTATE AMINO TRANSFERASE 16 U/L (10-37); BILIRUBIN,TOTAL 0.4 MG/DL (0.1-1.0); BLOOD UREA NITROGEN 10 MG/DL (7-18); BUN/CREATININE RATIO 14.9 (6.6-38.0); CALCIUM 8.8 MG/DL (8.5-10.1); CHLORIDE 99 MMOL/L (99-107); CREATININE 0.67 MG/DL (0.40-0.90); GLUCOSE 75 MG/DL (70-104); POTASSIUM 3.8 MMOL/L (3.5-5.1); SODIUM 141 MMOL/L (135-145); TOTAL CARBON DIOXIDE 19.7 MMOL/L (24-32); TOTAL PROTEIN 8.5 G/DL (6.4-8.2); eGFR > 90 ML/MIN
[2019-03-03 18:42] LABS: CLARITY,URINE SLIGHTLY CLOUDY (Clear); COLOR,URINE YELLOW (Yellow); GLUCOSE, URINE NEGATIVE (Neg); KETONES,URINE >=80 mg/dl (Neg); LEUKOCYTE ESTERASE ,URINE NEGATIVE (Neg); NITRITES, URINE NEGATIVE (Neg); OCCULT BLOOD,URINE LARGE (Neg); PH,URINE 5.5 (4.8-8.0); PROTEIN,URINE 30 mg/dl (Neg); UROBILINOGEN,URINE 0.2 E.U/dL (0.2-1.0)
--- NOTE | 2019-03-03 18:43 | NUR ---
SPOKE WITH DR GENTILE ABOUT SURGICAL HISTORY, PAIN, AND ABSENT BOWEL SOUNDS, HE AUTHORIZED A CT ABD/WITHOUT, SO ORDERED.
[2019-03-03 18:44] LABS: URINE HCG NEGATIVE (NEG)
--- NOTE | 2019-03-03 18:49 | NUR ---
PT TO CT VIA W/C
[2019-03-03 18:57] LABS: UA COLLECTION TYPE NON-SPECIFIED
[2019-03-03 18:58] LABS: BACTERIA,URINE 2+ /HPF (Neg); RBC,URINE 20-50 /HPF (0-2); SQUAMOUS EPITHELIAL CELL,UR MANY /LPF (FEW); WBC,URINE 0-4 /HPF (0-4)
[2019-03-03 18:59] LABS: MUCUS STRANDS MODERATE /LPF (Neg)
[2019-03-03] MEDS ORDERED: normal saline 1000ML IV soln IVB ONE (20:05)
[2019-03-03] MEDS ORDERED: ondansetron/PF 4mg/2ml inj IV ONE (20:05)
[2019-03-03] MEDS ORDERED: ketorolac trometh. 30mg/ml inj. IV ONE (20:25)
[2019-03-03] MEDS ORDERED: fentaNYL/PF 50MCG/1 ML 2ML syringe IV ONE (20:25)
[2019-03-03 20:36] LABS: URINE AMPHETAMINE SCREEN NEGATIVE (Neg); URINE BARBITUATE SCREEN NEGATIVE (Neg); URINE BENZODIAZEPINES SCREEN NEGATIVE (Neg); URINE CANNABINOID SCREEN NEGATIVE (Neg); URINE COCAINE SCREEN NEGATIVE (Neg); URINE METHADONE SCREEN NEGATIVE (Neg); URINE OPIATE SCREEN POSITIVE (Neg); URINE PHENCYCLIDINE SCREEN NEGATIVE (Neg)
[2019-03-03 21:03] LABS: ETHANOL 0.299 GM/DL (0.0-0.010); TROPONIN I < 0.04 NG/ML (0.0-0.05)
[2019-03-03] MEDS ORDERED: proCHLORperazine 10 MG/2 ml inj IV ONE (21:55)
[2019-03-03] MEDS ORDERED: famotidine 20mg tablet PO ONE (21:55)
[2019-03-03] MEDS ORDERED: ESOMEPRAZOLE 40 MG VIAL IV STA (21:55)
[2019-03-03] MEDS ORDERED: thiamine 100mg/ml 2ml inj. IV ONE (22:30)
[2019-03-03] MEDS ORDERED: haloperidol 5mg tablet PO PRN (23:05)
[2019-03-03] MEDS ORDERED: acetaminophen 325mg tablet PO PRN (23:05)
[2019-03-03] MEDS ORDERED: haloperidol lactate 5mg/ml inj IM PRN (23:05)
[2019-03-03] MEDS ORDERED: thiamine inj. 100 MG in normal saline 100ml IV soln 100 ML IV ONE (23:05)
[2019-03-03] MEDS ORDERED: metoclopramide 5 mg/ml inj IV PRN (23:05)
[2019-03-03] MEDS ORDERED: mag hydrox/Alum hydrox/simeth 30ml oral suspension PO PRN (23:05)
[2019-03-03] MEDS ORDERED: magnesium hydroxide 30ml (MOM) UD suspension PO PRN (23:05)
[2019-03-03] MEDS ORDERED: ondansetron/PF 4mg/2ml inj IV PRN (23:05)
[2019-03-03] MEDS ORDERED: LORazepam 1 MG tablet PO PRN (23:05)
[2019-03-03] MEDS ORDERED: LORazepam 2 mg/ml vial IV PRN (23:05)
[2019-03-03] MEDS: normal saline 1000ml 1,000 ML IV SCH (23:19)
[2019-03-03] MEDS ORDERED: NO HOME MEDS (23:23)
[2019-03-04] VITALS (10 sets, daily range): BP systolic 123–159; BP diastolic 68–111
--- NOTE | 2019-03-04 00:50 | NUR ---
pt already on portal system Addendum: 03/04/19 at 0053 by Norma Lai RN Amended: Links added.
[2019-03-04] MEDS: acetaminophen 325mg tablet PO PRN ×2 (01:24→07:33)
[2019-03-04 06:00] LABS: ALBUMIN 2.7 G/DL (3.4-5.0); ANION GAP 14 (8-16); BASOPHILS % (AUTO) 0.4 % (0-1); BLOOD UREA NITROGEN 6 MG/DL (7-18); BUN/CREATININE RATIO 11.5 (6.6-38.0); CHLORIDE 105 MMOL/L (99-107); CREATININE 0.52 MG/DL (0.40-0.90); EOSINOPHILS % (AUTO) 0.2 % (0-6); GLUCOSE 72 MG/DL (70-104); HEMATOCRIT 28.1 % (35.0-45.0); HEMOGLOBIN 9.6 g/dl (12.0-16.0); LYMPHOCYTES % (AUTO) 17.7 % (21-51); MEAN CORPUSCULAR HEMOGLOBIN 33.5 PG (27.0-31.0); MEAN CORPUSCULAR HGB CONC 34.2 g/dL (33.0-36.5); MEAN CORPUSCULAR VOLUME 97.8 FL (78-98); MEAN PLATELET VOLUME 6.7 FL (7.4-10.4); MONOCYTES # (AUTO) 0.5 X10'3 (0-0.9); MONOCYTES % (AUTO) 8.8 % (2-12); NEUTROPHILS # (AUTO) 4.1 X10'3 (1.8-7.7); NEUTROPHILS % (AUTO) 72.9 % (42-75); PLATELET COUNT 242 X10'3 (140-440); POTASSIUM 3.9 MMOL/L (3.5-5.1); RED BLOOD COUNT 2.88 X10'6 (4.20-5.60); RED CELL DISTRIBUTION WIDTH 15.5 % (11.5-14.5); SODIUM 141 MMOL/L (135-145); TOTAL CARBON DIOXIDE 21.6 MMOL/L (24-32); WHITE BLOOD COUNT 5.6 X10'3 (4.5-11.0); eGFR > 90 ML/MIN
--- NOTE | 2019-03-04 06:36 | NUR ---
Problems reprioritized. Patient report given, questions answered & plan of care reviewed with MIRIAN Pedroza. Addendum: 03/04/19 at 0637 by Norma Lai RN Amended: Links added.
[2019-03-04] MEDS: thiamine 100mg tablet PO SCH (07:32)
[2019-03-04] MEDS: normal saline 1000ml 1,000 ML IV SCH ×4 (07:32→22:07)
[2019-03-04] MEDS ORDERED: ESOMEPRAZOLE 40 MG VIAL IV ONE ×2 (08:00→12:30)
[2019-03-04] MEDS ORDERED: MIDAZolam 5mg/5ml vial ONE (14:38)
[2019-03-04] MEDS ORDERED: fentaNYL/PF 50MCG/1 ML 2ML syringe ONE (14:38)
[2019-03-04] MEDS ORDERED: LIDOcaine Viscous 15ml cup ONE (14:39)
--- NOTE | 2019-03-04 16:06 | NUR ---
Malnutrition consult, patient presents with normal muscle strength, patient is NPO unable to assess PO Intake, BMI is normal, no edema, no significant weight loss per documented weight history. Good appetite, wants to eat food. Admitted with upper GI bleed secondary to possible esophagitis per MD note. History of EtOH, receiving thiamine. No malnutrition at this time. Will continue to follow. Addendum: 03/04/19 at [address] Amended: Links added.
--- NOTE | 2019-03-04 18:23 | NUR ---
Patient in room ORTHO 4010. I have received report from Kasia VELA and had the opportunity to ask questions and assume patient care.
[2019-03-05] MEDS: normal saline 1000ml 1,000 ML IV SCH ×2 (04:31→14:58)
[2019-03-05] MEDS: acetaminophen 325mg tablet PO PRN ×2 (05:03→11:49)
[2019-03-05 06:00] VITALS: BP 145/91
--- NOTE | 2019-03-05 06:00 | NUR ---
Patient in room ORTHO 4010. I have received report from ETIENNE VELA and had the opportunity to ask questions and assume patient care.
--- NOTE | 2019-03-05 06:25 | NUR ---
Problems reprioritized. Patient report given, questions answered & plan of care reviewed with Frandy VELA.
[2019-03-05 06:28] LABS: BASOPHILS % (AUTO) 0.4 % (0-1); EOSINOPHILS # (AUTO) 0.1 X10'3 (0-0.9); EOSINOPHILS % (AUTO) 3.4 % (0-6); HEMATOCRIT 30.6 % (35.0-45.0); HEMOGLOBIN 10.5 g/dl (12.0-16.0); LYMPHOCYTES # (AUTO) 0.9 X10'3 (1.1-4.8); LYMPHOCYTES % (AUTO) 32.9 % (21-51); MEAN CORPUSCULAR HEMOGLOBIN 33.2 PG (27.0-31.0); MEAN CORPUSCULAR HGB CONC 34.2 g/dL (33.0-36.5); MEAN CORPUSCULAR VOLUME 97.2 FL (78-98); MEAN PLATELET VOLUME 7.1 FL (7.4-10.4); MONOCYTES # (AUTO) 0.4 X10'3 (0-0.9); MONOCYTES % (AUTO) 14.6 % (2-12); NEUTROPHILS # (AUTO) 1.3 X10'3 (1.8-7.7); NEUTROPHILS % (AUTO) 48.7 % (42-75); PLATELET COUNT 204 X10'3 (140-440); RED BLOOD COUNT 3.15 X10'6 (4.20-5.60); RED CELL DISTRIBUTION WIDTH 15.4 % (11.5-14.5); WHITE BLOOD COUNT 2.7 X10'3 (4.5-11.0)
[2019-03-05 06:37] LABS: ALBUMIN 2.9 G/DL (3.4-5.0); ANION GAP 12 (8-16); BLOOD UREA NITROGEN 2 MG/DL (7-18); BUN/CREATININE RATIO 4.1 (6.6-38.0); CALCIUM 8.5 MG/DL (8.5-10.1); CHLORIDE 104 MMOL/L (99-107); CREATININE 0.49 MG/DL (0.40-0.90); GLUCOSE 120 MG/DL (70-104); SODIUM 141 MMOL/L (135-145); TOTAL CARBON DIOXIDE 24.8 MMOL/L (24-32); eGFR > 90 ML/MIN
[2019-03-05 06:53] LABS: POTASSIUM 2.9 MMOL/L (3.5-5.1)
--- NOTE | 2019-03-05 07:11 | NUR ---
PAGER ID: [phone] MESSAGE: KIMBERLY [phone] RE: OTILIA [id number] CRITICAL K 2.9, WILL PLACE ON PROTOCOL.
[2019-03-05] MEDS ORDERED: potassium Cl 20 mEq SR tablet PO PRN (07:15)
[2019-03-05] MEDS ORDERED: potassium CL 10mEq/100ml bag 100 ML IV PRN (07:15)
[2019-03-05] MEDS ORDERED: pantoprazole 40mg Tablet.DR PO SCH (07:30)
[2019-03-05 07:43] LABS: TOTAL CELLS COUNTED 100
[2019-03-05 07:44] LABS: ANISOCYTOSIS 1+; PLATELET ESTIMATE NORMAL
[2019-03-05] MEDS: thiamine 100mg tablet PO SCH (07:53)
[2019-03-05] MEDS: potassium Cl 20 mEq SR tablet PO PRN ×3 (07:53→15:28)
[2019-03-05] MEDS ORDERED: ESOMEPRAZOLE 40 MG VIAL IV SCH (08:00)
[2019-03-05 10:00] VITALS: BP 156/102
[2019-03-05] MEDS ORDERED: PANT-47 PO (10:34)
--- NOTE | 2019-03-05 15:35 | NUR ---
PATIENT DISCHARGED SAFELY WITH SPOUSE WITH ALL BELONGINGS IN POSSESSION. NURA DELIVERED PRESCRIPTION. PATIENT VERBALIZES UNDERSTANDING OF ALL DISCHARGE INSTRUCTIONS.
== END 2019-03-05 15:45 | disposition home or self-care (01) | DRG 241 ==
LOC: ER 17:47 → ORTHO 4S 03-04 00:30 → CMPBEDREQ 03-04 00:33 → ORTHO 4S 03-04 06:49
PROVIDERS: ADMIT Hospitalist; ATTEND Family Medicine
PROC: 0DB48ZX Excision of Esophagogastric Junction, Via Natural or Artificial Opening Endoscopic, Diagnostic (ICD-10-PCS; principal; 2019-03-04)
PROC: 0DB68ZX Excision of Stomach, Via Natural or Artificial Opening Endoscopic, Diagnostic (ICD-10-PCS; 2019-03-04)
DX: K29.01 Acute gastritis with bleeding (principal); E87.2 Acidosis; E86.0 Dehydration; K44.9 Diaphragmatic hernia without obstruction or gangrene; K21.0 Gastro-esophageal reflux disease with esophagitis; K92.0 Hematemesis; F10.129 Alcohol abuse with intoxication, unspecified; I10 Essential (primary) hypertension; F32.9 Major depressive disorder, single episode, unspecified; F41.9 Anxiety disorder, unspecified; K22.8 Other specified diseases of esophagus; Z82.49 Family history of ischemic heart disease and other diseases of the circulatory system; Z85.41 Personal history of malignant neoplasm of cervix uteri; Z84.89 Family history of other specified conditions; Z71.41 Alcohol abuse counseling and surveillance of alcoholic
CPT/HCPCS: 36415; 43239; 74176; 80048; 80053; 80305; 80320; 81001; 81025; 83605; 84145; 84484; 85025; 85610; 87040; 87081; 96361; 96365; 96375; 99152; 99285; A4620; G0378; J0780; J1885; J2060; J2250; J2405; J3010; J3411; J7030; J7040

== ENCOUNTER 2019-05-14 19:07 | Emergency (ER) | payer MEDICAID ==
[~2019-05-14] VITALS: Ht 157.5 cm; Wt 63.6 kg
[~2019-05-14 19:07] MED LIST changes: -BUSP10TA11 PO; -EMOL200L TP; -ESCI20TA38 PO; -FLUT16SP18 NAS; -HYDR-4383 PO; -LACT1CAP26 PO; -LISI-600 PO; -LORA10TA7 PO; -MULT-1179 PO; -PRAZ1CAP5 PO; -PROM12.512 PO; -TOBR5DRO57 OP; -ZOLP5TAB8 PO
[2019-05-14] MEDS ORDERED: ondansetron/PF 4mg/2ml inj IV ONE (20:15)
[2019-05-14] MEDS ORDERED: fentaNYL/PF 50MCG/1 ML 2ML syringe IV ONE ×3 (20:15→22:00)
[2019-05-14] MEDS ORDERED: normal saline 1000ML IV soln IVB ONE (20:15)
--- NOTE | 2019-05-14 20:24 | NUR ---
WENT TO PT ROOM TO START IV PT REFUSING IV START EDUCATED PT WHY AN IV WOULD BE HELPFUL FOR HER VISIT PT REFUSING IV AT THE TIME WILL NOTIFY KANDY SOMMER
--- NOTE | 2019-05-14 20:25 | NUR ---
HOUSEKEEPER SUPERVISOR REPORTS PT REFUSING LAB DRAW AT THIS TIME
[2019-05-14 21:25] LABS: BASOPHILS % (AUTO) 0.3 % (0-1); EOSINOPHILS % (AUTO) 0 % (0-6); HEMATOCRIT 33.8 % (35.0-45.0); HEMOGLOBIN 11.3 g/dl (12.0-16.0); LYMPHOCYTES # (AUTO) 1.4 X10'3 (1.1-4.8); LYMPHOCYTES % (AUTO) 15.2 % (21-51); MEAN CORPUSCULAR HEMOGLOBIN 30.6 PG (27.0-31.0); MEAN CORPUSCULAR HGB CONC 33.5 g/dL (33.0-36.5); MEAN CORPUSCULAR VOLUME 91.5 FL (78-98); MONOCYTES # (AUTO) 0.6 X10'3 (0-0.9); MONOCYTES % (AUTO) 6.8 % (2-12); NEUTROPHILS # (AUTO) 7.2 X10'3 (1.8-7.7); NEUTROPHILS % (AUTO) 77.7 % (42-75); PLATELET COUNT 387 X10'3 (140-440); RED CELL DISTRIBUTION WIDTH 15.4 % (11.5-14.5); WHITE BLOOD COUNT 9.2 X10'3 (4.5-11.0)
[2019-05-14 21:29] LABS: ALANINE AMINOTRANSFERASE 21 U/L (12-78); ALBUMIN 3.5 G/DL (3.4-5.0); ALBUMIN/GLOBULIN RATIO 0.8 (1.1-1.5); ALKALINE PHOSPHATASE 75 IU/L (46-116); ANION GAP 14 (8-16); ASPARTATE AMINO TRANSFERASE 15 U/L (10-37); BILIRUBIN,TOTAL 0.2 MG/DL (0.1-1.0); BLOOD UREA NITROGEN 15 MG/DL (7-18); BUN/CREATININE RATIO 15.6 (6.6-38.0); CALCIUM 8.6 MG/DL (8.5-10.1); CHLORIDE 104 MMOL/L (99-107); CREATININE 0.96 MG/DL (0.40-0.90); ETHANOL 0.249 GM/DL (0.0-0.010); GLUCOSE 110 MG/DL (70-104); POTASSIUM 3.4 MMOL/L (3.5-5.1); SODIUM 143 MMOL/L (135-145); TOTAL CARBON DIOXIDE 24.6 MMOL/L (24-32); TOTAL PROTEIN 7.7 G/DL (6.4-8.2); eGFR 60 ML/MIN
--- NOTE | 2019-05-14 21:55 | NUR ---
dISCUSSED PT'S CONTINUED PAIN SINCE MANIPULATION AND SPLINTIND WITH KANDY SOMMER. NEW ORDER TO ADMINISTERED BALANCE OF FENTANYL FROM 2136 ADMINISTRATION PRIOR TO START OF SPLINTING. MED HAD NOT YET AYESHA WASTED THIS RN INVOLVED IN ASSIST WITH SPLINGING OF ARM. TOTAL 2MLS GIVEN IN SPLIT 1ML DOSES FROM INITIAL OMNICELL WITHDRAWAL. 1ML DOSE DOSE PRIOR TO SPLINT; 1ML DOSE POST SPLINGING. ADMINISTRATIONS WERE WITNESSED BY KANDY SOMMER. THERE WAS NO WASTE.
--- NOTE | 2019-05-14 22:52 | NUR ---
Confirmed pt is staying at [facility]. Spoke with Mgr Amna who will let pt into her room upon arrival via taxi as pt does not have her manuel with her. Pt and primary rn informed.
--- NOTE | 2019-05-14 23:42 | NUR ---
mina called for them to take her to the hotel.
[2019-05-14 23:47] VITALS: BP 111/66
== END 2019-05-14 23:49 | disposition home or self-care (01) ==
LOC: ER 19:08
DX: S42.332A Displaced oblique fracture of shaft of humerus, left arm, initial encounter for closed fracture (principal); F10.129 Alcohol abuse with intoxication, unspecified; I10 Essential (primary) hypertension; F41.9 Anxiety disorder, unspecified; F32.9 Major depressive disorder, single episode, unspecified; Z98.890 Other specified postprocedural states; Z60.2 Problems related to living alone; Z85.89 Personal history of malignant neoplasm of other organs and systems; Z79.899 Other long term (current) drug therapy; V19.9XXA Pedal cyclist (driver) (passenger) injured in unspecified traffic accident, initial encounter; Y93.I9 Activity, other involving external motion; Y92.488 Other paved roadways as the place of occurrence of the external cause; Y99.8 Other external cause status; Y90.0 Blood alcohol level of less than 20 mg/100 ml
CPT/HCPCS: 24505; 36415; 73060; 80053; 80320; 85025; 96374; 96375; 96376; 99284; J2405; J3010; J7030

== ENCOUNTER 2019-05-31 09:16 | Emergency (ER) | payer MEDICAID ==
[~2019-05-31] VITALS: Ht 157.5 cm; Wt 65.8 kg
[2019-05-31 09:20] VITALS: BP 125/85
[2019-05-31] MEDS ORDERED: HYDR-4353 PO (09:45)
--- NOTE | 2019-05-31 10:05 | NUR ---
Removed ring from patients left hand. Ring given to patients .
== END 2019-05-31 11:08 | disposition home or self-care (01) ==
LOC: ER 09:17
DX: S42.292D Other displaced fracture of upper end of left humerus, subsequent encounter for fracture with routine healing (principal); I10 Essential (primary) hypertension; F41.9 Anxiety disorder, unspecified; F32.9 Major depressive disorder, single episode, unspecified; F10.10 Alcohol abuse, uncomplicated; Z98.890 Other specified postprocedural states; Z60.2 Problems related to living alone; X58.XXXD Exposure to other specified factors, subsequent encounter
CPT/HCPCS: 73030; 99284

== ENCOUNTER 2019-06-06 10:36 | Emergency (ER) | payer MEDICAID ==
[~2019-06-06] VITALS: Ht 157.5 cm; Wt 64.0 kg
[2019-06-06 12:11] VITALS: BP 117/91
== END 2019-06-06 12:21 | disposition home or self-care (01) ==
LOC: ER 10:37
DX: S42.292D Other displaced fracture of upper end of left humerus, subsequent encounter for fracture with routine healing (principal); I10 Essential (primary) hypertension; F32.9 Major depressive disorder, single episode, unspecified; F41.9 Anxiety disorder, unspecified; X58.XXXD Exposure to other specified factors, subsequent encounter; Z98.890 Other specified postprocedural states
CPT/HCPCS: 99281; 99282

== ENCOUNTER 2019-09-30 12:35 | Emergency (ER) | payer MEDICAID ==
[~2019-09-30] VITALS: Ht 157.5 cm; Wt 63.5 kg
[2019-09-30 12:48] VITALS: BP 127/100
[2019-09-30] MEDS ORDERED: CHLO25CA10 PO (13:16)
[2019-09-30] MEDS ORDERED: LORazepam 1 MG tablet PO ONE (13:40)
== END 2019-09-30 13:51 | disposition home or self-care (01) ==
LOC: ER 12:35
DX: I10 Essential (primary) hypertension (principal); F41.9 Anxiety disorder, unspecified; F32.9 Major depressive disorder, single episode, unspecified; F10.10 Alcohol abuse, uncomplicated; Z60.2 Problems related to living alone; Z98.890 Other specified postprocedural states; Z79.899 Other long term (current) drug therapy
CPT/HCPCS: 99283

== ENCOUNTER 2020-04-25 09:13 | Emergency (ER) | payer MEDICAID ==
[~2020-04-25] VITALS: Ht 157.5 cm; Wt 65.4 kg
[~2020-04-25 09:13] MED LIST changes: +CHLO25CA10 PO
[2020-04-25 09:42] LABS: BASOPHILS % (AUTO) 0.5 % (0-1); EOSINOPHILS % (AUTO) 0 % (0-6); HEMOGLOBIN 14.4 g/dl (12.0-16.0); LYMPHOCYTES # (AUTO) 0.4 X10'3 (1.1-4.8); LYMPHOCYTES % (AUTO) 5.5 % (21-51); MEAN CORPUSCULAR HEMOGLOBIN 32.9 PG (27.0-31.0); MEAN CORPUSCULAR HGB CONC 33.5 g/dL (33.0-36.5); MEAN CORPUSCULAR VOLUME 98.1 FL (78-98); MEAN PLATELET VOLUME 6.5 FL (7.4-10.4); MONOCYTES # (AUTO) 0.8 X10'3 (0-0.9); MONOCYTES % (AUTO) 10.4 % (2-12); NEUTROPHILS # (AUTO) 6.7 X10'3 (1.8-7.7); NEUTROPHILS % (AUTO) 83.6 % (42-75); PLATELET COUNT 240 X10'3 (140-440); RED BLOOD COUNT 4.39 X10'6 (4.20-5.60); RED CELL DISTRIBUTION WIDTH 14.5 % (11.5-14.5)
[2020-04-25 09:56] LABS: ALANINE AMINOTRANSFERASE 55 U/L (12-78); ALBUMIN 4.1 G/DL (3.4-5.0); ALKALINE PHOSPHATASE 92 IU/L (46-116); ANION GAP 9 (8-16); ASPARTATE AMINO TRANSFERASE 53 U/L (10-37); BILIRUBIN,TOTAL 1.3 MG/DL (0.1-1.0); BLOOD UREA NITROGEN 8 MG/DL (7-18); BUN/CREATININE RATIO 10.3 (6.6-38.0); CALCIUM 9.7 MG/DL (8.5-10.1); CHLORIDE 95 MMOL/L (99-107); CREATININE 0.78 MG/DL (0.40-0.90); GLUCOSE 104 MG/DL (70-104); POTASSIUM 3.6 MMOL/L (3.5-5.1); SODIUM 132 MMOL/L (135-145); TOTAL CARBON DIOXIDE 27.7 MMOL/L (24-32); TOTAL PROTEIN 8.3 G/DL (6.4-8.2); eGFR 76 ML/MIN
[2020-04-25 10:58] VITALS: BP 122/91
== END 2020-04-25 11:01 | disposition home or self-care (01) ==
LOC: ER 09:14
DX: R55 Syncope and collapse (principal); I10 Essential (primary) hypertension; F41.9 Anxiety disorder, unspecified; F32.9 Major depressive disorder, single episode, unspecified; F10.10 Alcohol abuse, uncomplicated; Z98.890 Other specified postprocedural states; Z60.2 Problems related to living alone; Z79.899 Other long term (current) drug therapy; Y90.9 Presence of alcohol in blood, level not specified
CPT/HCPCS: 36415; 71045; 80053; 83880; 84484; 85025; 93005; 99285

== ENCOUNTER 2020-06-02 06:52 | Day surgery (SDC) | payer MEDICAID ==
[2020-05-26 12:25] LABS: BASOPHILS # (AUTO) 0.1 X10'3 (0-0.2); EOSINOPHILS # (AUTO) 0.1 X10'3 (0-0.9); EOSINOPHILS % (AUTO) 1.5 % (0-6); LYMPHOCYTES # (AUTO) 1.4 X10'3 (1.1-4.8); LYMPHOCYTES % (AUTO) 22.3 % (21-51); MEAN CORPUSCULAR HGB CONC 33.2 g/dL (33.0-36.5); MEAN CORPUSCULAR VOLUME 99.3 FL (78-98); MEAN PLATELET VOLUME 6.7 FL (7.4-10.4); MONOCYTES # (AUTO) 0.9 X10'3 (0-0.9); MONOCYTES % (AUTO) 13.8 % (2-12); NEUTROPHILS # (AUTO) 3.8 X10'3 (1.8-7.7); NEUTROPHILS % (AUTO) 61.4 % (42-75); PRE OP HEMATOCRIT 36.5 % (35.0-45.0); PRE OP HEMOGLOBIN 12.1 g/dL (12.0-16.0); PRE OP PLATELET COUNT 339 X10'3 (140-440); RED BLOOD COUNT 3.67 X10'6 (4.20-5.60); RED CELL DISTRIBUTION WIDTH 13.5 % (11.5-14.5)
[2020-05-26 12:38] LABS: ALBUMIN 3.3 G/DL (3.4-5.0); ALBUMIN/GLOBULIN RATIO 0.9 (1.1-1.5); ALKALINE PHOSPHATASE 77 IU/L (46-116); BLOOD UREA NITROGEN 13 MG/DL (7-18); CALCIUM 8.4 MG/DL (8.5-10.1); CHLORIDE 98 MMOL/L (99-107); CREATININE 0.65 MG/DL (0.40-0.90); PRE OP ALT 73 U/L (30-65); PRE OP ANION GAP 8 (8-16); PRE OP AST 92 U/L (10-37); PRE OP BILIRUB, TOTAL 0.3 MG/DL (0.0-1.0); PRE OP GLUCOSE 98 MG/DL (70-104); PRE OP POTASSIUM 3.4 MMOL/L (3.4-5.1); PRE OP SODIUM 136 MMOL/L (135-145); TOTAL CARBON DIOXIDE 30.1 MMOL/L (24-32); eGFR > 90 ML/MIN
[2020-05-26 13:11] LABS: TOTAL CELLS COUNTED 100
[2020-05-26 13:12] LABS: PLATELET ESTIMATE NORMAL
[~2020-06-02] VITALS: Ht 157.5 cm; Wt 63.5 kg
[2020-06-02] VITALS (19 sets, daily range): BP systolic 105–142; BP diastolic 66–95
[~2020-06-02 06:52] MED LIST changes: -CHLO25CA10 PO; +OMEP20CA15 PO; -PANT-47 PO; +VANCOMYCIN INJ 1000 MG in NORMAL SALINE 250ml IV.SOLN IV ONE; +ceFAZolin/D5W- 1GM premix 50 ML IV ONE; +famotidine 20mg tablet PO ONE; +ringers solution, lacted 1,000 ML IV SCH
[2020-06-02] MEDS ORDERED: diazepam 5mg tablet PO ONE (07:40)
[2020-06-02] MEDS ORDERED: ketorolac trometh. 30mg/ml inj. ONE (08:24)
[2020-06-02] MEDS ORDERED: BUPIVAcaine/PF 2.5 mg/ml (0.25%) 30ml vial ONE (08:24)
[2020-06-02] MEDS ORDERED: ROPIVAcaine 0.5% (5mg/ml) 30ml vial ONE ×2 (08:24→09:43)
[2020-06-02] MEDS ORDERED: sevoflurane 250ml liquid IH ONE (08:37)
[2020-06-02] MEDS ORDERED: neostigmine methylsulfate 1 MG/ML 10ml vial ONE (08:37)
[2020-06-02] MEDS ORDERED: glycopyrrolate 0.2mg/ml inj ONE (08:37)
[2020-06-02] MEDS ORDERED: fentaNYL/PF 50MCG/1 ML 2ML syringe ONE (08:39)
[2020-06-02] MEDS ORDERED: midazolam 2 mg/2 ml injection ONE (08:40)
[2020-06-02] MEDS ORDERED: dexamethasone sod phosphate 4mg/ml inj. ONE (09:43)
[2020-06-02] MEDS ORDERED: LIDOcaine 1%/PF 5ML 10 MG/ML VIAL ONE (09:43)
[2020-06-02] MEDS ORDERED: rocuronium 10mg/ml inj IV ONE (09:43)
[2020-06-02] MEDS ORDERED: propofol inj 20 ML IV ONE (09:43)
[2020-06-02] MEDS ORDERED: ondansetron/PF 4mg/2ml inj ONE (09:43)
[2020-06-02] MEDS ORDERED: LIDOcaine 2% (20mg/ml) 5ml vial ONE (09:43)
[2020-06-02] MEDS ORDERED: ePHEDrine 50MG/ML INJ. ONE (09:43)
[2020-06-02] MEDS ORDERED: ondansetron/PF 4mg/2ml inj IV PRN ×2 (10:00→11:25)
[2020-06-02] MEDS ORDERED: acetaminophen 1,000mg/100ml IV 100 ML IV PRN (10:00)
[2020-06-02] MEDS ORDERED: proCHLORperazine 10 MG/2 ml inj IV PRN (10:00)
[2020-06-02] MEDS ORDERED: morphine 2 MG/ML inj. syringe IV PRN (10:00)
[2020-06-02] MEDS ORDERED: meperidine/PF 25mg/ml syringe IV PRN ×3 (10:00)
[2020-06-02] MEDS ORDERED: ROPIVAcaine 0.2%/PF PUMP/bolus 550 ML INTERSCALE SCH (10:00)
[2020-06-02] MEDS ORDERED: ROPIVAcaine 0.2% (10 MG/5 ML) BOLUS INJECTION INTERSCALE PRN (10:00)
[2020-06-02] MEDS ORDERED: ringers solution, lacted 1,000 ML IV SCH (10:00)
[2020-06-02] MEDS ORDERED: morphine 4 MG/ML inj SYRINge IV PRN (10:00)
[2020-06-02] MEDS ORDERED: morphine 10mg/ml inj. ONE (10:48)
--- NOTE | 2020-06-02 11:21 | NUR ---
Received from OR via SHYANN , accompanied by Anesthesiologist GEN and report given by Anesthesiolgist. PATIENT WITH 20G PIV IN RIGHT UE RUNNING LR AT 100. DENIES PAIN. PATIENT WITH ANTERIOR LEFT SHOULDER DRESSING INPLACE WITH SHOULDER WRAP- CDI. + CAP REFILL AND BLANCABILITY. 10L MASK ON WITH 100% SATRUATIONS. VSS Addendum: 06/02/20 at 1134 by Carloz Soliman RN, RN Amended: Links added.
[2020-06-02] MEDS ORDERED: HYDROmorphone inj. 0.5 MG/0.5 ML DISP.SYRIN IV PRN (11:25)
[2020-06-02] MEDS ORDERED: oxyCODONE IR 5mg (immed. release) tablet PO PRN (11:25)
[2020-06-02] MEDS ORDERED: HYDROmorphone 1 mg/ml syringe IV PRN (11:25)
[2020-06-02] MEDS ORDERED: acetaminophen 325mg tablet PO PRN (11:25)
[2020-06-02] MEDS ORDERED: magnesium hydroxide 30ml (MOM) UD suspension PO PRN (11:25)
[2020-06-02] MEDS ORDERED: diphenhydrAMINE 25mg capsule PO PRN ×2 (11:25)
[2020-06-02] MEDS ORDERED: bisacodyl 10mg suppository rectal RC PRN (11:25)
--- NOTE | 2020-06-02 12:31 | NUR ---
ALL CRITERIA FOR TRANSFER TO THE FLOOR HAS BEEN ACHIEVED. REPORT GIVEN AND ALL QUESTIONS ANSWERED, VSS. BED LOW 2 RAILS UP, CALL LIGHT PRESENT AND PATIENT HOOKED UP TO ALL LINES AND VSS. PATIENTS RN PRESENT TO ACCEPT CARE. PASSIVE TRANSFER WITH 2 PERSON ASSIST TO BED 4020A. POSITIONED TO COMFORT. PILLOW PLACED UNDER LEFT ELBOW FOR COMFORT. VSS. DENIES PAIN. 3L NASAL CANNULA. VSS. BEHAVIORAL HEALTH TECHNICIAN PRESENT TO ASSIST. MIRIAN BEACH AWARE PATIENT HAS ARRIVED. Addendum: 06/02/20 at 1303 by Carloz Bello - MIRIAN VELA Amended: Links added.
[2020-06-02] MEDS: acetaminophen 325mg tablet PO SCH ×2 (14:56→19:54)
[2020-06-02] MEDS: ceFAZolin/D5W- 1GM premix 50 ML IV SCH ×2 (15:51→23:35)
--- NOTE | 2020-06-02 18:10 | NUR ---
gave report to mi cotter
--- NOTE | 2020-06-02 18:30 | NUR ---
Patient in room ORTHO 4020. I have received report from Kelly VELA and had the opportunity to ask questions and assume patient care.
--- NOTE | 2020-06-02 18:55 | NUR ---
pt disclosed hx of abdominal varices, difficulty swallowing due to this condition. States in the last year this has worsened. Admits to hx of alcoholism & continues to drink occasionally while also abstaining (?). Describes feeling desperate when drinking, denies daily drinking though. She states she does not believe she would suffer DT's & does not have them when she is able to abstain (has roommates). Pt has no hx of seizure or DM. Pt did request ativan or something for anxiety Called Dr. Arshad & informed. New orders received & read back-
[2020-06-02] MEDS ORDERED: LORazepam 1 MG tablet PO PRN (19:05)
[2020-06-02] MEDS: potassium cl 20mEq in 1/2 NS 1,000 ML IV SCH ×2 (19:25→19:53)
[2020-06-02] MEDS: oxyCODONE IR 5mg (immed. release) tablet PO PRN (19:55)
[2020-06-02] MEDS: LORazepam 2 mg/ml vial IV PRN (19:55)
[2020-06-02] MEDS ORDERED: vancomycin/NS 1 GM ADD-VANTAGE 250 ML IV SCH (20:00)
[2020-06-02] MEDS ORDERED: sennosides 8.6mg tablet PO SCH (21:00)
[2020-06-03] MEDS: LORazepam 2 mg/ml vial IV PRN (01:59)
[2020-06-03 02:00] VITALS: BP 132/94
[2020-06-03] MEDS: oxyCODONE IR 5mg (immed. release) tablet PO PRN ×2 (02:00→05:38)
[2020-06-03] MEDS: acetaminophen 325mg tablet PO SCH ×2 (02:00→07:15)
[2020-06-03] MEDS: potassium cl 20mEq in 1/2 NS 1,000 ML IV SCH ×2 (03:25→05:38)
[2020-06-03 06:00] VITALS: BP 141/98
--- NOTE | 2020-06-03 06:10 | NUR ---
received report from mi ricketts
[2020-06-03 06:22] LABS: BASOPHILS % (AUTO) 0.1 % (0-1); EOSINOPHILS % (AUTO) 0 % (0-6); HEMATOCRIT 28.4 % (35.0-45.0); HEMOGLOBIN 9.7 g/dl (12.0-16.0); LYMPHOCYTES # (AUTO) 0.4 X10'3 (1.1-4.8); LYMPHOCYTES % (AUTO) 3.9 % (21-51); MEAN CORPUSCULAR HEMOGLOBIN 33.6 PG (27.0-31.0); MEAN CORPUSCULAR VOLUME 98.8 FL (78-98); MONOCYTES # (AUTO) 1.1 X10'3 (0-0.9); MONOCYTES % (AUTO) 10.1 % (2-12); NEUTROPHILS # (AUTO) 9.4 X10'3 (1.8-7.7); NEUTROPHILS % (AUTO) 85.9 % (42-75); PLATELET COUNT 277 X10'3 (140-440); RED BLOOD COUNT 2.88 X10'6 (4.20-5.60); RED CELL DISTRIBUTION WIDTH 13.3 % (11.5-14.5)
[2020-06-03 06:24] LABS: ANION GAP 7 (8-16); CHLORIDE 100 MMOL/L (99-107); POTASSIUM 4.5 MMOL/L (3.5-5.1); SODIUM 132 MMOL/L (135-145)
--- NOTE | 2020-06-03 06:40 | NUR ---
Problems reprioritized. Patient report given, questions answered & plan of care reviewed with Kelly VELA.
[2020-06-03] MEDS ORDERED: pantoprazole 40mg Tablet.DR PO SCH (08:00)
[2020-06-03] MEDS ORDERED: aspirin 325mg tablet PO SCH (08:30)
--- NOTE | 2020-06-03 08:35 | NUR ---
gave report to mi ennis
--- NOTE | 2020-06-03 08:55 | NUR ---
Patient in room ORTHO 4020. I have received report from Kelly and had the opportunity to ask questions and assume patient care.
[2020-06-03 10:10] VITALS: BP 141/99
[2020-06-04] MEDS ORDERED: acetaminophen 325mg tablet PO PRN (11:25)
== END 2020-06-03 13:39 | disposition home or self-care (01) ==
LOC: PAS 06:52 → ORTHO 4S 13:00 → PAS 06-03 13:39
PROVIDERS: ATTEND Orthopaedic Surgery
DX: S42.332K Displaced oblique fracture of shaft of humerus, left arm, subsequent encounter for fracture with nonunion (principal); I10 Essential (primary) hypertension; F32.9 Major depressive disorder, single episode, unspecified; K21.9 Gastro-esophageal reflux disease without esophagitis; G89.18 Other acute postprocedural pain; Z98.890 Other specified postprocedural states; F41.9 Anxiety disorder, unspecified; Z72.89 Other problems related to lifestyle; Z79.899 Other long term (current) drug therapy; Z85.41 Personal history of malignant neoplasm of cervix uteri; Z20.828 Contact with and (suspected) exposure to other viral communicable diseases; X58.XXXD Exposure to other specified factors, subsequent encounter
CPT/HCPCS: 24430; 36415; 64416; 73060; 76000; 76937; 80051; 80053; 85025; 87635; 97161; 97530; C1713; C9803; J0690; J1100; J1170; J1885; J2001; J2060; J2250; J2270; J2405; J2704; J2710; J2795; J3010; J3370; J3490; J7120; 85007; A4565; A4618; A7000; G0378; J3480

== ENCOUNTER 2020-06-06 07:10 | Emergency (ER) | payer MEDICAID ==
[~2020-06-06] VITALS: Ht 157.5 cm; Wt 68.5 kg
[~2020-06-06 07:10] MED LIST changes: -VANCOMYCIN INJ 1000 MG in NORMAL SALINE 250ml IV.SOLN IV ONE; -ceFAZolin/D5W- 1GM premix 50 ML IV ONE; -famotidine 20mg tablet PO ONE; -ringers solution, lacted 1,000 ML IV SCH
[2020-06-06 07:16] VITALS: BP 126/93
[2020-06-06] MEDS ORDERED: OXYC-150 PO (07:38)
== END 2020-06-06 07:50 | disposition home or self-care (01) ==
LOC: ER 07:11
DX: T81.89XA Other complications of procedures, not elsewhere classified, initial encounter (principal); M25.512 Pain in left shoulder; I10 Essential (primary) hypertension; F41.9 Anxiety disorder, unspecified; F32.9 Major depressive disorder, single episode, unspecified; Q89.9 Congenital malformation, unspecified; J18.9 Pneumonia, unspecified organism; Z85.41 Personal history of malignant neoplasm of cervix uteri; Z98.890 Other specified postprocedural states; Z90.49 Acquired absence of other specified parts of digestive tract; Z79.899 Other long term (current) drug therapy
CPT/HCPCS: 99283

== ENCOUNTER 2020-06-24 13:32 | Emergency (ER) | payer MEDICAID ==
[~2020-06-24] VITALS: Ht 154.9 cm; Wt 65.0 kg
[~2020-06-24 13:32] MED LIST changes: +OXYC-150 PO
[2020-06-24] MEDS ORDERED: mag hydrox/Alum hydrox/simeth 30ml oral suspension PO ONE (15:05)
[2020-06-24] MEDS ORDERED: LIDOcaine Viscous 15ml cup MM PRN (15:05)
[2020-06-24] MEDS ORDERED: pantoprazole 40mg Tablet.DR PO SCH (15:14)
[2020-06-24] MEDS ORDERED: PANT-47 PO (15:26)
[2020-06-25] MEDS ORDERED: pantoprazole 40mg Tablet.DR PO SCH (07:30)
== END 2020-06-24 15:38 | disposition home or self-care (01) ==
LOC: ER 13:33
DX: K21.00 Gastro-esophageal reflux disease with esophagitis, without bleeding (principal); I10 Essential (primary) hypertension; F41.9 Anxiety disorder, unspecified; F32.9 Major depressive disorder, single episode, unspecified; Z79.899 Other long term (current) drug therapy
CPT/HCPCS: 99283

== ENCOUNTER 2020-06-27 13:38 | Emergency (ER) | payer MEDICAID ==
[~2020-06-27] VITALS: Ht 157.5 cm; Wt 64.0 kg
[~2020-06-27 13:38] MED LIST changes: +PANT-47 PO
[2020-06-27 13:39] VITALS: BP 140/96
[2020-06-27] MEDS ORDERED: LIDOcaine Viscous 15ml cup MM PRN (13:50)
[2020-06-27] MEDS ORDERED: mag hydrox/Alum hydrox/simeth 30ml oral suspension PO ONE (13:50)
[2020-06-27 14:09] LABS: BASOPHILS # (AUTO) 0.1 X10'3 (0-0.2); EOSINOPHILS % (AUTO) 0.4 % (0-6); LYMPHOCYTES # (AUTO) 1.1 X10'3 (1.1-4.8); LYMPHOCYTES % (AUTO) 16.1 % (21-51); MEAN CORPUSCULAR HEMOGLOBIN 31.2 PG (27.0-31.0); MEAN CORPUSCULAR HGB CONC 33.5 g/dL (33.0-36.5); MEAN CORPUSCULAR VOLUME 93.4 FL (78-98); MEAN PLATELET VOLUME 7.1 FL (7.4-10.4); MONOCYTES # (AUTO) 0.8 X10'3 (0-0.9); MONOCYTES % (AUTO) 11.3 % (2-12); NEUTROPHILS % (AUTO) 71.2 % (42-75); PLATELET COUNT 458 X10'3 (140-440); RED BLOOD COUNT 3.53 X10'6 (4.20-5.60); RED CELL DISTRIBUTION WIDTH 14.6 % (11.5-14.5)
[2020-06-27 14:19] LABS: PARTIAL THROMBOPLASTIN TIME 26 SECONDS (22-32)
[2020-06-27 14:22] LABS: ALANINE AMINOTRANSFERASE 27 U/L (12-78); ALBUMIN 3.1 G/DL (3.4-5.0); ALBUMIN/GLOBULIN RATIO 0.7 (1.1-1.5); ALKALINE PHOSPHATASE 114 IU/L (46-116); ANION GAP 12 (8-16); ASPARTATE AMINO TRANSFERASE 22 U/L (10-37); BILIRUBIN,TOTAL 0.4 MG/DL (0.1-1.0); BLOOD UREA NITROGEN 5 MG/DL (7-18); BUN/CREATININE RATIO 7.2 (6.6-38.0); CALCIUM 8.8 MG/DL (8.5-10.1); CHLORIDE 98 MMOL/L (99-107); CREATININE 0.69 MG/DL (0.40-0.90); GLUCOSE 94 MG/DL (70-104); POTASSIUM 3.4 MMOL/L (3.5-5.1); SODIUM 137 MMOL/L (135-145); TOTAL CARBON DIOXIDE 27.4 MMOL/L (24-32); TOTAL PROTEIN 7.4 G/DL (6.4-8.2); eGFR 88 ML/MIN
== END 2020-06-27 15:21 | disposition left against medical advice (07) ==
LOC: ER 13:38
DX: K21.00 Gastro-esophageal reflux disease with esophagitis, without bleeding (principal); I10 Essential (primary) hypertension; F41.9 Anxiety disorder, unspecified; F32.9 Major depressive disorder, single episode, unspecified; Z79.899 Other long term (current) drug therapy
CPT/HCPCS: 36415; 80053; 83880; 84484; 85025; 85610; 85730; 93005; 99284

== ENCOUNTER 2020-06-30 08:04 | Emergency (ER) | payer MEDICAID ==
[~2020-06-30] VITALS: Ht 157.5 cm; Wt 65.1 kg
[2020-06-30 08:07] VITALS: BP 148/102
[2020-06-30] MEDS ORDERED: LIDOcaine Viscous 15ml cup MM STA (08:53)
[2020-06-30] MEDS ORDERED: SUCR1ORA12 PO (08:55)
[2020-06-30] MEDS ORDERED: sucralfate 1gm/10ml UD suspension PO ONE (08:55)
[2020-06-30] MEDS ORDERED: sucralfate 1gm/10ml UD suspension PO SCH (08:55)
== END 2020-06-30 09:31 | disposition home or self-care (01) ==
LOC: ER 08:04
DX: K21.00 Gastro-esophageal reflux disease with esophagitis, without bleeding (principal); J02.9 Acute pharyngitis, unspecified; I10 Essential (primary) hypertension; F41.9 Anxiety disorder, unspecified; F32.9 Major depressive disorder, single episode, unspecified; Z98.890 Other specified postprocedural states; Z72.89 Other problems related to lifestyle; Z60.2 Problems related to living alone; Z79.899 Other long term (current) drug therapy
CPT/HCPCS: 87081; 87880; 99283

== ENCOUNTER → 2020-07-17 | Emergency (ER) | payer MEDICAID ==
[~2020-07-17] VITALS: Ht 157.5 cm; Wt 64.9 kg
[~2020-07-17] MED LIST changes: +PERM60CR19 TOP; +SUCR1ORA12 PO
[2020-07-17 10:29] VITALS: BP 152/105
== END | disposition home or self-care (01) ==
LOC: ER 12:00
DX: B86 Scabies (principal); I10 Essential (primary) hypertension; K21.9 Gastro-esophageal reflux disease without esophagitis; F41.9 Anxiety disorder, unspecified; F32.9 Major depressive disorder, single episode, unspecified; Z87.01 Personal history of pneumonia (recurrent); Z85.41 Personal history of malignant neoplasm of cervix uteri; Z98.890 Other specified postprocedural states; Z72.89 Other problems related to lifestyle; Z79.899 Other long term (current) drug therapy
CPT/HCPCS: 99283

== ENCOUNTER 2020-08-23 17:52 | Emergency (ER) | payer MEDICAID ==
[~2020-08-23] VITALS: Ht 167.6 cm; Wt 75.0 kg
[~2020-08-23 17:52] MED LIST changes: -PERM60CR19 TOP
--- NOTE | 2020-08-23 17:56 | NUR ---
PT'S KRANTHI JJ: [phone]
[2020-08-23 17:59] VITALS: BP 159/105
[2020-08-23] MEDS ORDERED: LIDOcaine Viscous 15ml cup MM ONE (18:40)
[2020-08-23] MEDS ORDERED: mag hydrox/Alum hydrox/simeth 30ml oral suspension PO ONE (18:40)
[2020-08-23] MEDS ORDERED: sucralfate 1gm/10ml UD suspension PO SCH (21:00)
== END 2020-08-23 19:07 | disposition home or self-care (01) ==
LOC: ER 17:52
DX: K20.90 Esophagitis, unspecified without bleeding (principal); Z79.899 Other long term (current) drug therapy; I10 Essential (primary) hypertension; I25.10 Atherosclerotic heart disease of native coronary artery without angina pectoris; K21.9 Gastro-esophageal reflux disease without esophagitis; Z87.01 Personal history of pneumonia (recurrent); Z87.410 Personal history of cervical dysplasia
CPT/HCPCS: 99282

== ENCOUNTER 2020-09-05 17:02 | Emergency (ER) | payer MEDICAID ==
[2020-09-05] MEDS ORDERED: ondansetron 4mg rapidly disintigrating tab PO STA (17:42)
[2020-09-05] MEDS ORDERED: LIDOcaine Viscous 15ml cup TP ONE (17:45)
[2020-09-05] MEDS ORDERED: pantoprazole 40mg Tablet.DR PO ONE (17:45)
[2020-09-05] MEDS ORDERED: mag hydrox/Alum hydrox/simeth 30ml oral suspension PO ONE (17:45)
[2020-09-05] MEDS ORDERED: PANT-47 PO (17:56)
[2020-09-05] MEDS ORDERED: ONDA4TAB6 PO (17:56)
== END 2020-09-05 18:15 | disposition home or self-care (01) ==
LOC: ER 17:03
DX: K22.70 Barrett's esophagus without dysplasia (principal); I10 Essential (primary) hypertension; K21.9 Gastro-esophageal reflux disease without esophagitis; Z79.899 Other long term (current) drug therapy; Z87.09 Personal history of other diseases of the respiratory system; Z87.410 Personal history of cervical dysplasia
CPT/HCPCS: 99283

== ENCOUNTER 2020-09-10 13:47 | Emergency (ER) | payer MEDICAID ==
[~2020-09-10] VITALS: Ht 157.5 cm; Wt 65.9 kg
[~2020-09-10 13:47] MED LIST changes: +ONDA4TAB6 PO
[2020-09-10 14:30] VITALS: BP 140/100
[2020-09-10] MEDS ORDERED: ondansetron 4mg rapidly disintigrating tab PO ONE (14:40)
[2020-09-10] MEDS ORDERED: LIDOcaine Viscous 15ml cup MM ONE (14:40)
[2020-09-10] MEDS ORDERED: pantoprazole 40mg Tablet.DR PO ONE (14:40)
[2020-09-10] MEDS ORDERED: mag hydrox/Alum hydrox/simeth 30ml oral suspension PO ONE ×2 (14:40→14:50)
--- NOTE | 2020-09-10 14:50 | NUR ---
MAALOX DROPPED ON FLOOR, PHARMACY PLACED NEW ORDER.
== END 2020-09-10 14:54 | disposition home or self-care (01) ==
LOC: ER 13:48
DX: U07.1 COVID-19 (principal); R05 Cough; K22.70 Barrett's esophagus without dysplasia; K21.9 Gastro-esophageal reflux disease without esophagitis; I10 Essential (primary) hypertension; Z87.01 Personal history of pneumonia (recurrent); Z87.410 Personal history of cervical dysplasia; Z72.89 Other problems related to lifestyle; Z98.890 Other specified postprocedural states; Z79.899 Other long term (current) drug therapy
CPT/HCPCS: 36415; 87635; 99283; 99284

== ENCOUNTER 2020-09-26 11:17 | Emergency (ER) | payer MEDICAID ==
[~2020-09-26] VITALS: Ht 157.5 cm; Wt 65.9 kg
[2020-09-26 11:29] VITALS: BP 136/100
== END 2020-09-26 12:14 | disposition left against medical advice (07) ==
LOC: ER 11:18
DX: Z20.822 Contact with and (suspected) exposure to COVID-19 (principal); Z53.21 Procedure and treatment not carried out due to patient leaving prior to being seen by health care provider

== ENCOUNTER 2020-10-05 07:28 | Emergency (ER) | payer MEDICAID ==
[~2020-10-05] VITALS: Ht 157.5 cm; Wt 65.9 kg
[2020-10-05 07:37] VITALS: BP 168/113
[2020-10-05] MEDS ORDERED: OMEP40CA13 PO (08:09)
[2020-10-05] MEDS ORDERED: pantoprazole 40mg Tablet.DR PO ONE (08:10)
[2020-10-05] MEDS ORDERED: mag hydrox/Alum hydrox/simeth 30ml oral suspension PO ONE (08:10)
[2020-10-05] MEDS ORDERED: famotidine 20mg tablet PO ONE (08:10)
[2020-10-05] MEDS ORDERED: LIDOcaine Viscous 15ml cup MM ONE (08:10)
== END 2020-10-05 08:35 | disposition home or self-care (01) ==
LOC: ER 07:28
DX: K21.9 Gastro-esophageal reflux disease without esophagitis (principal); R11.2 Nausea with vomiting, unspecified; R10.84 Generalized abdominal pain; I10 Essential (primary) hypertension; F41.9 Anxiety disorder, unspecified; F32.9 Major depressive disorder, single episode, unspecified; Z87.01 Personal history of pneumonia (recurrent); Z85.41 Personal history of malignant neoplasm of cervix uteri; Z98.890 Other specified postprocedural states; Z72.89 Other problems related to lifestyle; Z79.899 Other long term (current) drug therapy
CPT/HCPCS: 99284

== ENCOUNTER 2020-10-13 12:15 | Emergency (ER) | payer MEDICAID ==
[~2020-10-13] VITALS: Ht 157.5 cm; Wt 65.9 kg
[~2020-10-13 12:15] MED LIST changes: +OMEP40CA13 PO
[2020-10-13 12:17] VITALS: BP 147/99
[2020-10-13] MEDS ORDERED: ONDA4TAB6 PO (13:52)
[2020-10-13] MEDS ORDERED: DICY10CA88 PO (13:52)
[2020-10-13] MEDS ORDERED: HYDR-3686 PO (13:58)
== END 2020-10-13 14:02 | disposition home or self-care (01) ==
LOC: ER 12:15
DX: F10.129 Alcohol abuse with intoxication, unspecified (principal); F10.10 Alcohol abuse, uncomplicated; I10 Essential (primary) hypertension; K21.9 Gastro-esophageal reflux disease without esophagitis; F41.9 Anxiety disorder, unspecified; F32.9 Major depressive disorder, single episode, unspecified; Z87.01 Personal history of pneumonia (recurrent); Z85.41 Personal history of malignant neoplasm of cervix uteri; Z98.890 Other specified postprocedural states; Z72.89 Other problems related to lifestyle; Z79.899 Other long term (current) drug therapy; Y90.9 Presence of alcohol in blood, level not specified
CPT/HCPCS: 99284

== ENCOUNTER 2020-10-17 14:27 | Emergency (ER) | payer MEDICAID ==
[~2020-10-17] VITALS: Ht 157.5 cm; Wt 63.8 kg
[~2020-10-17 14:27] MED LIST changes: +DICY10CA88 PO; +HYDR-3686 PO
[2020-10-17] MEDS ORDERED: LIDOcaine Viscous 15ml cup MM ONE (16:30)
[2020-10-17] MEDS ORDERED: mag hydrox/Alum hydrox/simeth 30ml oral suspension PO ONE (16:30)
[2020-10-17] MEDS ORDERED: pantoprazole 40mg Tablet.DR PO ONE (16:35)
[2020-10-17 16:45] VITALS: BP 113/89
[2020-10-17] MEDS ORDERED: PANT20TA18 PO (16:45)
[2020-10-18] MEDS ORDERED: pantoprazole 40mg Tablet.DR PO SCH (07:30)
== END 2020-10-17 17:21 | disposition home or self-care (01) ==
LOC: ER 14:29
DX: R11.2 Nausea with vomiting, unspecified (principal); R10.13 Epigastric pain; R11.10 Vomiting, unspecified; I10 Essential (primary) hypertension; J21.9 Acute bronchiolitis, unspecified; F41.9 Anxiety disorder, unspecified; F32.9 Major depressive disorder, single episode, unspecified; Z87.01 Personal history of pneumonia (recurrent); Z98.890 Other specified postprocedural states; Z72.89 Other problems related to lifestyle; Z79.899 Other long term (current) drug therapy
CPT/HCPCS: 99284

== ENCOUNTER 2020-10-26 14:30 | Emergency (ER) | payer MEDICAID ==
[~2020-10-26] VITALS: Ht 157.5 cm; Wt 60.0 kg
[~2020-10-26 14:30] MED LIST changes: +PANT20TA18 PO
[2020-10-26] MEDS ORDERED: GABA300C PO (16:42)
[2020-10-26 17:06] VITALS: BP 120/84
== END 2020-10-26 16:55 | disposition home or self-care (01) ==
LOC: ER 14:31
DX: F10.20 Alcohol dependence, uncomplicated (principal); R10.13 Epigastric pain; I10 Essential (primary) hypertension; K21.9 Gastro-esophageal reflux disease without esophagitis; F41.9 Anxiety disorder, unspecified; F32.9 Major depressive disorder, single episode, unspecified; Z98.890 Other specified postprocedural states; Z79.899 Other long term (current) drug therapy; Y90.9 Presence of alcohol in blood, level not specified
CPT/HCPCS: 99283

== ENCOUNTER 2020-10-31 07:35 | Emergency (ER) | payer MEDICAID ==
[~2020-10-31] VITALS: Ht 157.5 cm; Wt 68.0 kg
[~2020-10-31 07:35] MED LIST changes: +GABA300C PO; -HYDR-3686 PO
[2020-10-31 07:42] VITALS: BP 137/101
[2020-10-31] MEDS ORDERED: ONDA8TAB13 PO (07:52)
[2020-10-31] MEDS ORDERED: LORA-269 PO (07:52)
== END 2020-10-31 08:08 | disposition home or self-care (01) ==
LOC: ER 07:36
DX: Z02.89 Encounter for other administrative examinations (principal); F10.20 Alcohol dependence, uncomplicated; R11.0 Nausea; I10 Essential (primary) hypertension; F41.9 Anxiety disorder, unspecified; F32.9 Major depressive disorder, single episode, unspecified; F17.200 Nicotine dependence, unspecified, uncomplicated; Z87.01 Personal history of pneumonia (recurrent); Z85.41 Personal history of malignant neoplasm of cervix uteri; Z98.890 Other specified postprocedural states; Z72.89 Other problems related to lifestyle; Z79.899 Other long term (current) drug therapy; Y90.9 Presence of alcohol in blood, level not specified
CPT/HCPCS: 99283

== ENCOUNTER 2020-11-09 13:41 | Inpatient (IN) | payer MEDICAID ==
[~2020-11-09] VITALS: Ht 157.5 cm; Wt 63.6 kg
[2020-11-09] VITALS (11 sets, daily range): BP systolic 102–126; BP diastolic 69–81
[~2020-11-09 13:41] MED LIST changes: +LORA-269 PO; -OMEP40CA13 PO; +ONDA8TAB13 PO
[2020-11-09] MEDS ORDERED: normal saline 1000ML IV soln IVB ONE (14:20)
[2020-11-09] MEDS ORDERED: ondansetron/PF 4mg/2ml inj IV ONE (14:20)
[2020-11-09 14:44] LABS: BASOPHILS % (AUTO) 0.9 % (0-1); EOSINOPHILS % (AUTO) 0.6 % (0-6); HEMATOCRIT 36.4 % (35.0-45.0); HEMOGLOBIN 11.9 g/dl (12.0-16.0); LYMPHOCYTES # (AUTO) 1.2 X10'3 (1.1-4.8); LYMPHOCYTES % (AUTO) 22.9 % (21-51); MEAN CORPUSCULAR HEMOGLOBIN 29.8 PG (27.0-31.0); MEAN CORPUSCULAR HGB CONC 32.7 g/dL (33.0-36.5); MEAN CORPUSCULAR VOLUME 91.2 FL (78-98); MEAN PLATELET VOLUME 6.9 FL (7.4-10.4); MONOCYTES # (AUTO) 0.9 X10'3 (0-0.9); MONOCYTES % (AUTO) 16.7 % (2-12); NEUTROPHILS # (AUTO) 3.2 X10'3 (1.8-7.7); NEUTROPHILS % (AUTO) 58.9 % (42-75); PLATELET COUNT 480 X10'3 (140-440); RED BLOOD COUNT 3.99 X10'6 (4.20-5.60); RED CELL DISTRIBUTION WIDTH 17.9 % (11.5-14.5); WHITE BLOOD COUNT 5.4 X10'3 (4.5-11.0)
[2020-11-09 15:07] LABS: ANION GAP 11 (8-16); BLOOD UREA NITROGEN 12 MG/DL (7-18); CHLORIDE 102 MMOL/L (99-107); CREATININE 0.83 MG/DL (0.40-0.90); GLUCOSE 118 MG/DL (70-104); POTASSIUM 3.4 MMOL/L (3.5-5.1); SODIUM 138 MMOL/L (135-145); TOTAL CARBON DIOXIDE 25.1 MMOL/L (24-32)
[2020-11-09 15:08] LABS: ALANINE AMINOTRANSFERASE 22 U/L (12-78); ALBUMIN 3.2 G/DL (3.4-5.0); ALBUMIN/GLOBULIN RATIO 0.7 (1.1-1.5); ALKALINE PHOSPHATASE 67 IU/L (46-116); ASPARTATE AMINO TRANSFERASE 18 U/L (10-37); BILIRUBIN,TOTAL 0.4 MG/DL (0.1-1.0); BUN/CREATININE RATIO 14.5 (6.6-38.0); LIPASE 126 U/L (73-393); TOTAL PROTEIN 7.6 G/DL (6.4-8.2); eGFR 71 ML/MIN
[2020-11-09 15:25] LABS: ANISOCYTOSIS 1+; LARGE PLATELETS FEW; PLATELET ESTIMATE INCREASED; TOTAL CELLS COUNTED 100
[2020-11-09] MEDS ORDERED: piperacillin/tazo 3.375gm/50ml 50 ML IV ONE (15:40)
[2020-11-09] MEDS: morphine 4 MG/ML inj SYRINge IV PRN ×3 (15:53→18:38)
--- NOTE | 2020-11-09 16:01 | NUR ---
still c/o 05/07 abdominal pain after adminsitering 4mg morphine,give additional 4mg per Dr godinez.
[2020-11-09] MEDS ORDERED: GABA300C PO (16:11)
[2020-11-09] MEDS ORDERED: AMOX500T2 PO (16:11)
[2020-11-09] MEDS ORDERED: OMEP40CA13 PO (16:11)
[2020-11-09] MEDS ORDERED: proCHLORperazine 10 MG/2 ml inj IV ONE (16:25)
[2020-11-09] MEDS ORDERED: fentaNYL/PF 50MCG/1 ML 2ML syringe IV ONE ×2 (16:25→17:00)
[2020-11-09] MEDS ORDERED: meperidine/PF 25mg/ml syringe IV PRN ×6 (17:20→22:45)
[2020-11-09] MEDS ORDERED: hydrALAZINE 20mg/ml inj. IV PRN ×2 (17:20→22:45)
[2020-11-09] MEDS ORDERED: morphine 4 MG/ML inj SYRINge IV PRN ×2 (17:20→22:45)
[2020-11-09] MEDS ORDERED: ringers solution, lacted 1,000 ML IV SCH ×2 (17:20→22:45)
[2020-11-09] MEDS ORDERED: proCHLORperazine 10 MG/2 ml inj IV PRN ×2 (17:20→22:45)
[2020-11-09] MEDS ORDERED: ondansetron/PF 4mg/2ml inj IV PRN ×2 (17:20→22:45)
[2020-11-09] MEDS ORDERED: morphine 2 MG/ML inj. syringe IV PRN ×3 (17:20→22:45)
[2020-11-09] MEDS ORDERED: acetaminophen 1,000mg/100ml IV 100 ML IV PRN ×2 (17:20→22:45)
[2020-11-09] MEDS ORDERED: labetalol 20mg/4ml (5mg/ml) syringe IV PRN ×2 (17:20→22:45)
[2020-11-09] MEDS ORDERED: magnesium hydroxide 30ml (MOM) UD suspension PO PRN (18:05)
[2020-11-09] MEDS ORDERED: magnesium 2GM in 50ml NS 50 ML IV PRN (18:05)
[2020-11-09] MEDS ORDERED: potassium Cl 20 mEq SR tablet PO PRN ×2 (18:05)
[2020-11-09] MEDS ORDERED: potassium Cl 40MEQ/1/2NS 520ml 520 ML IV PRN ×2 (18:05)
[2020-11-09] MEDS ORDERED: bisacodyl 10mg suppository rectal RC PRN (18:05)
[2020-11-09] MEDS ORDERED: magnesium 4gm in 100ml NS 100 ML IV PRN (18:05)
[2020-11-09] MEDS ORDERED: diphenhydrAMINE 50 mg/ml inj IV PRN (18:05)
[2020-11-09] MEDS ORDERED: acetaminophen 650mg rectal suppository RC PRN (18:05)
--- NOTE | 2020-11-09 18:08 | NUR ---
TO SURGERY PER SHYANN ACCOMPANIED BY OR STAFF.
[2020-11-09 18:32] LABS: CLARITY,URINE CLOUDY (Clear); COLOR,URINE YELLOW (Yellow); GLUCOSE, URINE NEGATIVE (Neg); KETONES,URINE TRACE mg/dl (Neg); LEUKOCYTE ESTERASE ,URINE NEGATIVE (Neg); NITRITES, URINE NEGATIVE (Neg); OCCULT BLOOD,URINE TRACE-INTACT (Neg); PH,URINE 5.5 (4.8-8.0); PROTEIN,URINE TRACE mg/dl (Neg)
[2020-11-09 18:33] LABS: UA COLLECTION TYPE VOIDED
[2020-11-09 18:36] LABS: URINE HCG NEGATIVE (NEG)
[2020-11-09] MEDS ORDERED: rocuronium 10mg/ml inj IV ONE ×2 (19:00→19:33)
[2020-11-09] MEDS ORDERED: sevoflurane 250ml liquid IH ONE (19:00)
[2020-11-09] MEDS ORDERED: fentaNYL /PF 50mcg/ml 5ml ampule ONE (19:05)
[2020-11-09] MEDS ORDERED: midazolam 1 mg/ML 2ml injection ONE (19:05)
[2020-11-09] MEDS ORDERED: LIDOcaine 2% 5ml jelly ONE (19:09)
[2020-11-09 19:16] LABS: BACTERIA,URINE FEW /HPF (Neg); MUCUS STRANDS MANY /LPF (Neg); RBC,URINE 0-2 /HPF (0-2); SQUAMOUS EPITHELIAL CELL,UR MANY /LPF (FEW); TRANSITIONAL EPI CELLS,URINE FEW /HPF; WBC,URINE 0-4 /HPF (0-4)
[2020-11-09] MEDS ORDERED: propofol inj 20 ML IV ONE (19:33)
[2020-11-09] MEDS ORDERED: ceFOXitin 1000 MG inj ONE ×2 (19:33)
[2020-11-09] MEDS ORDERED: LIDOcaine 2% (20mg/ml) 5ml vial ONE (19:33)
[2020-11-09] MEDS ORDERED: dexamethasone sod phosphate 4mg/ml inj. ONE (19:33)
[2020-11-09] MEDS ORDERED: ondansetron/PF 4mg/2ml inj ONE (19:33)
[2020-11-09] MEDS ORDERED: BUPIVAcaine/PF 2.5 mg/ml (0.25%) 30ml vial ONE (19:37)
[2020-11-09] MEDS ORDERED: famotidine/PF 10 mg/ml inj IV ONE ×2 (19:38)
[2020-11-09] MEDS: K and/or MAG REPLACEMENT MC SCH (20:00)
[2020-11-09] MEDS ORDERED: albumin (Human) 5% 250ml 250 ML IV ONE ×2 (20:22)
[2020-11-09] MEDS ORDERED: glycopyrrolate 0.2mg/ml inj ONE (21:16)
[2020-11-09] MEDS ORDERED: neostigmine methylsulfate 1 MG/ML 10ml vial ONE (21:16)
--- NOTE | 2020-11-09 21:35 | NUR ---
Received from OR via BED, accompanied by Anesthesiologist GEN and report given by Anesthesiolgist. PT DROWSY, OXYGENATING WELL ON 10 LPM O2 VIA MASK, NO RESP DISTRESS NOTED. PT DENIES NAUSEA. C/O MODERATE INCISIONAL PAIN 5/10. HAD BILATERAL TAP BLOCKS. LG ABD DRESSING, SCANT AMOUNT OF SANGINOUS DRAINAGE. COLOSTOMY BAG TO R ABD. STOMA IS PINK AND MOIST. FC PATENT, SCDS ON. VSS, WILL CONTINUE TO MONITOR.
--- NOTE | 2020-11-09 23:00 | NUR ---
Report called to receiving nurse. Transferred via BED Belongings WITH PT, INCLUDING 1 BAG OF CLOTHING AND GLASSES. PT DENIES HAVING CELL PHONE, WALLET OR ANY VALUABLES WITH HER. PAIN WELL CONTROLLED, VSS. PROVIDED PT WITH GLYCERIN SWABS TO MOISTEN MOUTH. POST OP ACCUCHECK 147. PT TRANSFERRED TO PCU IN STABLE CONDITION. Special Issues communicated to receiving nurse.
--- NOTE | 2020-11-09 23:00 | NUR ---
Pt arrived from PACU with belongings and on 2L-O2. O2 increased to 3L with O2 Sat >92%. VSS. Pt reports pain 5/10. Abdominal dressing and colostomy accessed. Stoma protruding and pink. Scant draining on abdominal dressing. Post-Op VS initiated, will continue to monitor. Report received from Lori prior to arrival. Per Rowan wound vac to be placed the following day.
[2020-11-10] VITALS (10 sets, daily range): BP systolic 95–118; BP diastolic 66–81
[2020-11-10] MEDS: piperacillin/tazo 3.375gm/50ml 50 ML IV SCH ×3 (01:30→16:20)
[2020-11-10] MEDS: morphine 2 MG/ML inj. syringe IV PRN ×3 (01:30→11:03)
[2020-11-10] MEDS: normal saline 1000ml 1,000 ML IV SCH ×3 (01:31→14:18)
--- NOTE | 2020-11-10 07:11 | NUR ---
Patient in room PCU 3023B. I have received report from MIRIAN WHITT and had the opportunity to ask questions and assume patient care.
[2020-11-10 07:23] LABS: BASOPHILS % (AUTO) 0 % (0-1); EOSINOPHILS % (AUTO) 0 % (0-6); HEMATOCRIT 31.7 % (35.0-45.0); HEMOGLOBIN 10.3 g/dl (12.0-16.0); LYMPHOCYTES # (AUTO) 0.4 X10'3 (1.1-4.8); LYMPHOCYTES % (AUTO) 3.9 % (21-51); MEAN CORPUSCULAR HEMOGLOBIN 30.1 PG (27.0-31.0); MEAN CORPUSCULAR HGB CONC 32.6 g/dL (33.0-36.5); MEAN CORPUSCULAR VOLUME 92.3 FL (78-98); MEAN PLATELET VOLUME 7.5 FL (7.4-10.4); MONOCYTES # (AUTO) 0.6 X10'3 (0-0.9); NEUTROPHILS # (AUTO) 8.5 X10'3 (1.8-7.7); NEUTROPHILS % (AUTO) 90.1 % (42-75); PLATELET COUNT 334 X10'3 (140-440); RED BLOOD COUNT 3.43 X10'6 (4.20-5.60); RED CELL DISTRIBUTION WIDTH 17.6 % (11.5-14.5); WHITE BLOOD COUNT 9.4 X10'3 (4.5-11.0)
[2020-11-10 07:30] LABS: ALANINE AMINOTRANSFERASE 15 U/L (12-78); ALBUMIN 2.5 G/DL (3.4-5.0); ALBUMIN/GLOBULIN RATIO 0.7 (1.1-1.5); ALKALINE PHOSPHATASE 29 IU/L (46-116); ANION GAP 9 (8-16); ASPARTATE AMINO TRANSFERASE 15 U/L (10-37); BILIRUBIN,TOTAL 0.9 MG/DL (0.1-1.0); BLOOD UREA NITROGEN 10 MG/DL (7-18); CALCIUM 8.3 MG/DL (8.5-10.1); CHLORIDE 106 MMOL/L (99-107); CHOL/HDL RATIO 2.2 (0.00-4.99); CHOLESTEROL 122 MG/DL (0-200); CREATININE 0.77 MG/DL (0.40-0.90); GLUCOSE 139 MG/DL (70-104); HDL CHOLESTEROL 56 MG/DL (35-60); LDL CHOLESTEROL 56 MG/DL (50-100); MAGNESIUM 1.4 MG/DL (1.5-2.4); PHOSPHORUS 4.3 MG/DL (2.3-4.5); POTASSIUM 4.3 MMOL/L (3.5-5.1); SODIUM 140 MMOL/L (135-145); TOTAL CARBON DIOXIDE 24.6 MMOL/L (24-32); TOTAL PROTEIN 5.9 G/DL (6.4-8.2); TRIGLYCERIDES 44 MG/DL (20-135); eGFR 78 ML/MIN
[2020-11-10] MEDS: K and/or MAG REPLACEMENT MC SCH ×2 (08:00→19:33)
[2020-11-10] MEDS: magnesium Cl slow-release 64mg tablet PO PRN ×2 (08:18→19:32)
[2020-11-10] MEDS: pantoprazole 40 MG vial IV SCH (08:32)
--- NOTE | 2020-11-10 12:41 | NUR ---
Pt states LBM was on 11/09/20 morning, describes it as small martha. Denies any other GI issues Addendum: 11/10/20 at 1251 by Moo Prakash STUDENT ROSETTA Amended: Links added.
[2020-11-10] MEDS: oxyCODONE/APAP 10/325mg tablet PO PRN ×2 (14:18→19:02)
--- NOTE | 2020-11-10 15:22 | NUR ---
Malnutrition consult: Pt presented to ER with abdominal pain and N/V; admit DX perforated colon per EMR. Pt s/p sigmoid and transverse colon resection with an ascending colostomy and rectal stump per surgeon note. RD software intern met with patient at bedside for written/verbal colostomy education with RD contact information provided. Pt's questions answered regarding odor causing foods and transitioning from low fiber to higher fiber diet gradually. Pt reports UBW 145 lbs, but weighed herself at home with digital scale as 139 lbs on 11/08, resulting in a 6 lb wt loss however per EMR pt is homeless. Pt reports poor appetite within the last week as a result from abdominal pain and constant swallowing issues r/t GERD. Pt reports appetite has returned s/p procedure. Recommend LABORATORY MECHANIC HELPER BSS given pt history once diet advances from clears. Per EMR pt has no edema, no significant decrease in muscle strength and when visualized pt did not appear to have muscle/fat wasting. Pt does not meet a minimum of two criteria for malnutrition at this time. To provide initial assessment at above date. Addendum: 11/10/20 at [address] Amended: Links added. Addendum: 11/10/20 at [address] I have reviewed and agree with note by diversity intern. Toma Harley, RD
[2020-11-10] MEDS ORDERED: thiamine inj. 100 MG in normal saline 100ml IV soln 100 ML IV ONE (18:05)
[2020-11-10] MEDS ORDERED: LORazepam 2 mg/ml vial IV PRN (18:05)
--- NOTE | 2020-11-10 18:13 | NUR ---
Pt end of shift report given to Primary RN Kerri.
--- NOTE | 2020-11-10 18:45 | NUR ---
Problems reprioritized. Patient report given, questions answered & plan of care reviewed with MIRIAN DOTY.
--- NOTE | 2020-11-10 19:10 | NUR ---
WHEN SCANNING PERCOCET THE WARNING SAID THE PATIENT HAD RECEIVED 4325MG OF ACETAMINOPHEN IN A 24HR PERIOD. I LOOKED BACK AT THE ACETAMINOPHEN GIVEN THE PATIENT RECEIVE 1000MG AT 2253 ON 11/09 AND PERCOCET AT 1418 11/10 WHICH EQUALS 1325MG NOT 4325MG. CONFIRMED WITH PHARMACY.
[2020-11-10] MEDS: lactobacillus rhamnosus 10,000 MMU CELLS/CAPSULE PO SCH (19:31)
--- NOTE | 2020-11-10 19:49 | NUR ---
PAGER ID: [phone] MESSAGE: Zeina Cee [id number] is complaining of discomfort under r rib. pt is post perforated bowel procedure. would it be possible to get something to help pass gas? no gas passed yet. thank you, sheyla [phone] galvin ask for something to help pass gas.
--- NOTE | 2020-11-10 19:52 | NUR ---
dr poole said they will put on some relestor for pt
[2020-11-10] MEDS ORDERED: methylnaltrexone br 12mg/0.6ml inj***SubQ only SQ ONE (19:55)
[2020-11-10] MEDS: LORazepam 1 MG tablet PO PRN (22:33)
[2020-11-11] MEDS: piperacillin/tazo 3.375gm/50ml 50 ML IV SCH ×4 (00:28→23:47)
[2020-11-11] MEDS: normal saline 1000ml 1,000 ML IV SCH ×3 (00:28→20:05)
[2020-11-11 02:00] VITALS: BP 94/64
[2020-11-11] MEDS: oxyCODONE/APAP 10/325mg tablet PO PRN ×4 (02:12→19:40)
--- NOTE | 2020-11-11 04:36 | NUR ---
Patient in room PCU 3023. I have received report from ignacia stark and had the opportunity to ask questions and assume patient care.
[2020-11-11 06:00] VITALS: BP 116/79
--- NOTE | 2020-11-11 06:07 | NUR ---
Problems reprioritized. Patient report given, questions answered & plan of care reviewed with florina stark.
--- NOTE | 2020-11-11 06:20 | NUR ---
Patient in room PCU 3023. I have received report from MIRIAN Godoy and had the opportunity to ask questions and assume patient care.
[2020-11-11 07:42] LABS: BASOPHILS % (AUTO) 0.2 % (0-1); EOSINOPHILS # (AUTO) 0.1 X10'3 (0-0.9); EOSINOPHILS % (AUTO) 0.4 % (0-6); HEMATOCRIT 29.9 % (35.0-45.0); LYMPHOCYTES # (AUTO) 0.5 X10'3 (1.1-4.8); LYMPHOCYTES % (AUTO) 4.4 % (21-51); MEAN CORPUSCULAR HGB CONC 33.4 g/dL (33.0-36.5); MEAN CORPUSCULAR VOLUME 92.7 FL (78-98); MEAN PLATELET VOLUME 7.6 FL (7.4-10.4); MONOCYTES # (AUTO) 0.5 X10'3 (0-0.9); MONOCYTES % (AUTO) 4.3 % (2-12); NEUTROPHILS # (AUTO) 11.1 X10'3 (1.8-7.7); NEUTROPHILS % (AUTO) 90.7 % (42-75); PLATELET COUNT 386 X10'3 (140-440); RED BLOOD COUNT 3.23 X10'6 (4.20-5.60); RED CELL DISTRIBUTION WIDTH 17.5 % (11.5-14.5); WHITE BLOOD COUNT 12.2 X10'3 (4.5-11.0)
[2020-11-11] MEDS: K and/or MAG REPLACEMENT MC SCH ×2 (08:00→20:00)
[2020-11-11] MEDS ORDERED: folic acid inj. 2 MG, thiamine inj. 100 MG, MVI, adult No.4 with vit. K 10 ML in dextro... IV SCH ×4 (08:00)
[2020-11-11] MEDS ORDERED: folic acid 1mg/0.2ml inj IV SCH (08:00)
[2020-11-11] MEDS ORDERED: thiamine inj. 100 MG in normal saline 100ml IV soln 100 ML IV SCH (08:00)
[2020-11-11] MEDS: lactobacillus rhamnosus 10,000 MMU CELLS/CAPSULE PO SCH ×2 (08:07→19:40)
[2020-11-11] MEDS: MULTIVIT-MIN/FERROUS GLUCONATE 9 MG/15 ML LIQUID PO SCH (08:08)
[2020-11-11] MEDS: pantoprazole 40 MG vial IV SCH (08:10)
[2020-11-11 08:18] LABS: ALANINE AMINOTRANSFERASE 14 U/L (12-78); ALBUMIN 2.1 G/DL (3.4-5.0); ALBUMIN/GLOBULIN RATIO 0.6 (1.1-1.5); ALKALINE PHOSPHATASE 45 IU/L (46-116); AMYLASE 25 U/L (25-115); ANION GAP 10 (8-16); ASPARTATE AMINO TRANSFERASE 23 U/L (10-37); BILIRUBIN,TOTAL 0.5 MG/DL (0.1-1.0); BLOOD UREA NITROGEN 9 MG/DL (7-18); BUN/CREATININE RATIO 14.1 (6.6-38.0); CALCIUM 8.3 MG/DL (8.5-10.1); CHLORIDE 106 MMOL/L (99-107); CREATININE 0.64 MG/DL (0.40-0.90); GLUCOSE 84 MG/DL (70-104); LIPASE < 50 U/L (73-393); MAGNESIUM 1.8 MG/DL (1.5-2.4); POTASSIUM 3.5 MMOL/L (3.5-5.1); SODIUM 140 MMOL/L (135-145); TOTAL CARBON DIOXIDE 24.5 MMOL/L (24-32); TOTAL PROTEIN 5.9 G/DL (6.4-8.2); eGFR > 90 ML/MIN
--- NOTE | 2020-11-11 08:51 | NUR ---
Paged Dr. Rockwell re: pain mgmt during wound vac placement: PAGER ID: [phone] MESSAGE: PT Ro Giron Room [id number] may pt have one time IV push 4 mg morphine sulfate for wound vac placement pain? Thank you Nina [phone]
[2020-11-11] MEDS ORDERED: morphine 4 MG/ML inj SYRINge IV ONE (10:35)
[2020-11-11 11:00] VITALS: BP 117/82
[2020-11-11 15:00] VITALS: BP 138/100
[2020-11-11 18:00] VITALS: BP 128/90
--- NOTE | 2020-11-11 18:00 | NUR ---
Patient in room MYRON 347. I have received report from BIANCA VELA and had the opportunity to ask questions and assume patient care.
--- NOTE | 2020-11-11 18:47 | NUR ---
Problems reprioritized. Patient report given, questions answered & plan of care reviewed with MIRIAN Godoy.
--- NOTE | 2020-11-11 19:00 | NUR ---
Patient in room MYRON 347. I have received report from assembler watch train and had the opportunity to ask questions. waiting pt arrival
[2020-11-11] MEDS: ondansetron/PF 4mg/2ml inj IV PRN (19:05)
[2020-11-11 19:15] VITALS: BP 118/83
--- NOTE | 2020-11-11 19:16 | NUR ---
Problems reprioritized. Patient report given, questions answered & plan of care reviewed with TANIYA. PT TRANFERRED WITH MEDICATION AND BELONGINGS IN BED TO 347 WITH KORI A RESOURCE RN. PT ALERT AND ORIENTED, ON RA CONNECTED TO WOUND VAC.
[2020-11-11] MEDS: LORazepam 1 MG tablet PO PRN (21:20)
[2020-11-12] VITALS: BP 119/84
[2020-11-12] MEDS: oxyCODONE/APAP 10/325mg tablet PO PRN ×4 (01:08→23:10)
[2020-11-12] MEDS: normal saline 1000ml 1,000 ML IV SCH ×2 (05:02→16:13)
--- NOTE | 2020-11-12 06:20 | NUR ---
Problems reprioritized. Patient report given, questions answered & plan of care reviewed with Martha Marcial.
--- NOTE | 2020-11-12 07:00 | NUR ---
PAGER ID: [phone] MESSAGE: Zeina Giron 347B Pt. sputum olive green, inspiratory stridor, and HR in 120s. 91% on 5 LPM via n/c. May I have order for RT and oxygen parameters for oxygen? cxr? Thank you- Martha [phone]
[2020-11-12 07:20] VITALS: BP 125/79
[2020-11-12 07:30] LABS: BASOPHILS % (AUTO) 0.3 % (0-1); EOSINOPHILS # (AUTO) 0.1 X10'3 (0-0.9); EOSINOPHILS % (AUTO) 1.4 % (0-6); HEMATOCRIT 33.6 % (35.0-45.0); HEMOGLOBIN 10.8 g/dl (12.0-16.0); LYMPHOCYTES # (AUTO) 0.4 X10'3 (1.1-4.8); LYMPHOCYTES % (AUTO) 7.1 % (21-51); MEAN CORPUSCULAR HEMOGLOBIN 30.5 PG (27.0-31.0); MEAN CORPUSCULAR HGB CONC 32.3 g/dL (33.0-36.5); MEAN CORPUSCULAR VOLUME 94.6 FL (78-98); MEAN PLATELET VOLUME 8.1 FL (7.4-10.4); MONOCYTES # (AUTO) 0.4 X10'3 (0-0.9); MONOCYTES % (AUTO) 7.2 % (2-12); NEUTROPHILS # (AUTO) 4.5 X10'3 (1.8-7.7); PLATELET COUNT 446 X10'3 (140-440); RED BLOOD COUNT 3.56 X10'6 (4.20-5.60); RED CELL DISTRIBUTION WIDTH 17.4 % (11.5-14.5); WHITE BLOOD COUNT 5.3 X10'3 (4.5-11.0)
[2020-11-12 07:56] LABS: ALANINE AMINOTRANSFERASE 18 U/L (12-78); ALBUMIN 2.1 G/DL (3.4-5.0); ALBUMIN/GLOBULIN RATIO 0.5 (1.1-1.5); ALKALINE PHOSPHATASE 60 IU/L (46-116); AMYLASE 35 U/L (25-115); ANION GAP 12 (8-16); ASPARTATE AMINO TRANSFERASE 24 U/L (10-37); BILIRUBIN,TOTAL 0.7 MG/DL (0.1-1.0); BLOOD UREA NITROGEN 9 MG/DL (7-18); BUN/CREATININE RATIO 14.8 (6.6-38.0); CALCIUM 8.7 MG/DL (8.5-10.1); CHLORIDE 104 MMOL/L (99-107); CREATININE 0.61 MG/DL (0.40-0.90); GLUCOSE 80 MG/DL (70-104); LIPASE 51 U/L (73-393); MAGNESIUM 1.7 MG/DL (1.5-2.4); PHOSPHORUS 3.1 MG/DL (2.3-4.5); SODIUM 138 MMOL/L (135-145); TOTAL CARBON DIOXIDE 21.8 MMOL/L (24-32); TOTAL PROTEIN 6.3 G/DL (6.4-8.2); eGFR > 90 ML/MIN
--- NOTE | 2020-11-12 08:09 | NUR ---
K=3.0 per lab. MIRIAN Reed is aware. Addendum: 11/12/20 at 0815 by Zuleyka Irwin RN Omit the above "MIRIAN Reed is aware". Note is to state "MIRIAN Thomas is aware."
--- NOTE | 2020-11-12 08:12 | NUR ---
PAGER ID: [phone] MESSAGE: Heriberto Lemon 347B PER PROTOCOL MUST NOTIFY YOU: 3.0 k. WILL REPLACE PER PROTOCOL. NATHALIA 8417
[2020-11-12] MEDS ORDERED: POTASSIUM BICARB 20meq eff tab 20 MEQ TABLET.EFF PO PRN (08:15)
[2020-11-12] MEDS: POTASSIUM BICARB 20meq eff tab 20 MEQ TABLET.EFF PO PRN ×3 (08:20→19:14)
[2020-11-12] MEDS: lactobacillus rhamnosus 10,000 MMU CELLS/CAPSULE PO SCH ×2 (08:22→19:15)
[2020-11-12] MEDS: piperacillin/tazo 3.375gm/50ml 50 ML IV SCH ×3 (08:22→23:10)
[2020-11-12] MEDS: LORazepam 1 MG tablet PO PRN ×2 (08:22→21:20)
[2020-11-12] MEDS: MULTIVIT-MIN/FERROUS GLUCONATE 9 MG/15 ML LIQUID PO SCH (08:22)
[2020-11-12] MEDS: K and/or MAG REPLACEMENT MC SCH ×2 (08:23→20:00)
[2020-11-12] MEDS: pantoprazole 40 MG vial IV SCH (08:23)
[2020-11-12 08:29] LABS: ABG BASE EXCESS -2.7 mmol/L (-2.0-2.0); ABG HCO3 21.6 mmol/L (22.0-26.0); ABG OXYGEN SATURATION 95.5 % (94-97); ABG PCO2 (T) 35.5 mmHg (32.0-45.0); ALLEN'S TEST Modified; FCOHb 0.9 % (0.0-3.9); FLOW 5 L/min; FMetHb 0.1 % (0.0-1.5); FO2Hb 94.5 % (94-97); TOTAL HEMOGLOBIN 11.2 G/dl (12.0-16.0)
[2020-11-12] MEDS: folic acid 1mg tablet PO SCH (09:00)
[2020-11-12] MEDS: thiamine 100mg tablet PO SCH (09:00)
[2020-11-12 11:00] VITALS: BP 129/88
--- NOTE | 2020-11-12 17:54 | NUR ---
Pt. states she "has been peeing all day". States she has voided at least 4 times. Only 300ml dark ORANGE urine in hat in bedside commode. Pt. states someone emptied it but nothing was recorded on outtake record. NA denies emptying hat. Will pass on in report to continue to monitor urine output. Addendum: 11/12/20 at 1757 by Martha Ocampo RN Amended: Links added.
--- NOTE | 2020-11-12 18:03 | NUR ---
DESK LIEUTENANT STATES TO PAGE AGAIN PAGER ID: [phone] MESSAGE: PAGER ID: [phone] MESSAGE: Zeina Giron 347B Pt. sputum olive green, inspiratory stridor, and HR in 120s. 91% on 5 LPM via n/c. May I have order for RT and oxygen parameters for oxygen? cxr? Thank you- Martha [phone]
[2020-11-12] MEDS ORDERED: ipratropium/albuterol 3ml nebule NEB PRN (18:10)
[2020-11-12 18:30] VITALS: BP 126/86
--- NOTE | 2020-11-12 18:30 | NUR ---
Patient in room MYRON 347. I have received report from Martha VELA and had the opportunity to ask questions and assume patient care.
--- NOTE | 2020-11-12 18:33 | NUR ---
Problems reprioritized. Patient report given, questions answered & plan of care reviewed with Regina VELA.
[2020-11-12] MEDS: heparin, porcine 5000 units/ml vial SQ SCH (19:15)
[2020-11-12 23:41] VITALS: BP 122/80
[2020-11-13] MEDS: oxyCODONE/APAP 10/325mg tablet PO PRN ×3 (03:07→20:37)
[2020-11-13 06:19] LABS: BASOPHILS % (AUTO) 0.3 % (0-1); EOSINOPHILS # (AUTO) 0.1 X10'3 (0-0.9); EOSINOPHILS % (AUTO) 2.8 % (0-6); HEMATOCRIT 30.6 % (35.0-45.0); LYMPHOCYTES # (AUTO) 0.3 X10'3 (1.1-4.8); LYMPHOCYTES % (AUTO) 6.5 % (21-51); MEAN CORPUSCULAR HEMOGLOBIN 30.6 PG (27.0-31.0); MEAN CORPUSCULAR HGB CONC 32.8 g/dL (33.0-36.5); MEAN CORPUSCULAR VOLUME 93.3 FL (78-98); MEAN PLATELET VOLUME 7.9 FL (7.4-10.4); MONOCYTES # (AUTO) 0.6 X10'3 (0-0.9); MONOCYTES % (AUTO) 13.5 % (2-12); NEUTROPHILS # (AUTO) 3.7 X10'3 (1.8-7.7); NEUTROPHILS % (AUTO) 76.9 % (42-75); PLATELET COUNT 432 X10'3 (140-440); RED BLOOD COUNT 3.28 X10'6 (4.20-5.60); WHITE BLOOD COUNT 4.8 X10'3 (4.5-11.0)
[2020-11-13 06:26] LABS: ALANINE AMINOTRANSFERASE 18 U/L (12-78); ALBUMIN/GLOBULIN RATIO 0.5 (1.1-1.5); ALKALINE PHOSPHATASE 59 IU/L (46-116); AMYLASE 28 U/L (25-115); ANION GAP 12 (8-16); ASPARTATE AMINO TRANSFERASE 21 U/L (10-37); BILIRUBIN,TOTAL 0.7 MG/DL (0.1-1.0); BLOOD UREA NITROGEN 8 MG/DL (7-18); BUN/CREATININE RATIO 13.6 (6.6-38.0); CHLORIDE 102 MMOL/L (99-107); CREATININE 0.59 MG/DL (0.40-0.90); GLUCOSE 81 MG/DL (70-104); LIPASE < 50 U/L (73-393); MAGNESIUM 1.5 MG/DL (1.5-2.4); PHOSPHORUS 2.9 MG/DL (2.3-4.5); POTASSIUM 3.7 MMOL/L (3.5-5.1); SODIUM 138 MMOL/L (135-145); TOTAL CARBON DIOXIDE 23.8 MMOL/L (24-32); TOTAL PROTEIN 5.9 G/DL (6.4-8.2); eGFR > 90 ML/MIN
--- NOTE | 2020-11-13 06:30 | NUR ---
Problems reprioritized. Patient report given, questions answered & plan of care reviewed with Tiffanie VELA.
[2020-11-13] MEDS: K and/or MAG REPLACEMENT MC SCH ×2 (07:28→20:00)
[2020-11-13] MEDS: thiamine 100mg tablet PO SCH (07:33)
[2020-11-13] MEDS: pantoprazole 40mg Tablet.DR PO SCH (07:34)
[2020-11-13] MEDS: folic acid 1mg tablet PO SCH (07:34)
[2020-11-13] MEDS: lactobacillus rhamnosus 10,000 MMU CELLS/CAPSULE PO SCH ×2 (07:34→20:38)
[2020-11-13] MEDS: MULTIVIT-MIN/FERROUS GLUCONATE 9 MG/15 ML LIQUID PO SCH (07:35)
[2020-11-13] MEDS: heparin, porcine 5000 units/ml vial SQ SCH ×2 (07:36→20:38)
[2020-11-13] MEDS: piperacillin/tazo 3.375gm/50ml 50 ML IV SCH ×3 (07:39→23:41)
[2020-11-13 08:00] VITALS: BP 126/87
[2020-11-13] MEDS ORDERED: furosemide 40mg/4ml inj IV ONE (09:45)
[2020-11-13 10:35] LABS: TOTAL CELLS COUNTED 100
[2020-11-13 10:37] LABS: ANISOCYTOSIS 1+; BURR CELLS FEW; PLATELET ESTIMATE NORMAL; TEAR DROP CELLS FEW
[2020-11-13 11:59] VITALS: BP 135/96
[2020-11-13 18:45] VITALS: BP 143/80
[2020-11-14] VITALS (10 sets, daily range): BP systolic 114–137; BP diastolic 75–93
[2020-11-14] MEDS: oxyCODONE/APAP 10/325mg tablet PO PRN ×2 (02:30→08:16)
--- NOTE | 2020-11-14 05:50 | NUR ---
PT UP AMBULATING
[2020-11-14 06:10] LABS: BASOPHILS % (AUTO) 0.3 % (0-1); EOSINOPHILS # (AUTO) 0.1 X10'3 (0-0.9); EOSINOPHILS % (AUTO) 1.5 % (0-6); HEMATOCRIT 28.6 % (35.0-45.0); HEMOGLOBIN 9.5 g/dl (12.0-16.0); LYMPHOCYTES # (AUTO) 0.6 X10'3 (1.1-4.8); LYMPHOCYTES % (AUTO) 6.5 % (21-51); MEAN CORPUSCULAR HEMOGLOBIN 30.6 PG (27.0-31.0); MEAN CORPUSCULAR HGB CONC 33.1 g/dL (33.0-36.5); MEAN CORPUSCULAR VOLUME 92.6 FL (78-98); MONOCYTES # (AUTO) 0.8 X10'3 (0-0.9); MONOCYTES % (AUTO) 8.7 % (2-12); NEUTROPHILS # (AUTO) 7.5 X10'3 (1.8-7.7); PLATELET COUNT 470 X10'3 (140-440); RED BLOOD COUNT 3.09 X10'6 (4.20-5.60); RED CELL DISTRIBUTION WIDTH 17.3 % (11.5-14.5)
[2020-11-14 06:11] LABS: ALANINE AMINOTRANSFERASE 14 U/L (12-78); ALBUMIN 1.9 G/DL (3.4-5.0); ALBUMIN/GLOBULIN RATIO 0.5 (1.1-1.5); ALKALINE PHOSPHATASE 70 IU/L (46-116); AMYLASE 19 U/L (25-115); ANION GAP 11 (8-16); ASPARTATE AMINO TRANSFERASE 17 U/L (10-37); BILIRUBIN,TOTAL 0.6 MG/DL (0.1-1.0); BLOOD UREA NITROGEN 8 MG/DL (7-18); BUN/CREATININE RATIO 15.4 (6.6-38.0); CALCIUM 8.1 MG/DL (8.5-10.1); CHLORIDE 102 MMOL/L (99-107); CREATININE 0.52 MG/DL (0.40-0.90); GLUCOSE 94 MG/DL (70-104); LIPASE < 50 U/L (73-393); MAGNESIUM 1.4 MG/DL (1.5-2.4); PHOSPHORUS 3.1 MG/DL (2.3-4.5); SODIUM 140 MMOL/L (135-145); TOTAL PROTEIN 5.7 G/DL (6.4-8.2); eGFR > 90 ML/MIN
[2020-11-14] MEDS: POTASSIUM BICARB 20meq eff tab 20 MEQ TABLET.EFF PO PRN (06:19)
--- NOTE | 2020-11-14 06:42 | NUR ---
Problems reprioritized. Patient report given, questions answered & plan of care reviewed with LEIF. Addendum: 11/14/20 at 0643 by João Mota RN Amended: Links added.
--- NOTE | 2020-11-14 07:15 | NUR ---
Patient in room MYRON 347. I have received report from BAYLEE VELA and had the opportunity to ask questions and assume patient care.
[2020-11-14] MEDS ORDERED: magnesium 4gm in 100ml NS 100 ML IV PRN (07:35)
[2020-11-14] MEDS ORDERED: potassium Cl 40MEQ/1/2NS 520ml 520 ML IV PRN (07:35)
[2020-11-14] MEDS ORDERED: magnesium 2GM in 50ml NS 50 ML IV PRN (07:35)
[2020-11-14] MEDS ORDERED: potassium Cl 20 mEq SR tablet PO PRN ×2 (07:35)
[2020-11-14] MEDS: K and/or MAG REPLACEMENT MC SCH ×2 (08:00→20:00)
[2020-11-14] MEDS: thiamine 100mg tablet PO SCH (08:13)
[2020-11-14] MEDS: folic acid 1mg tablet PO SCH (08:13)
[2020-11-14] MEDS: lactobacillus rhamnosus 10,000 MMU CELLS/CAPSULE PO SCH ×2 (08:13→19:46)
[2020-11-14] MEDS: heparin, porcine 5000 units/ml vial SQ SCH ×2 (08:13→19:47)
[2020-11-14] MEDS: pantoprazole 40mg Tablet.DR PO SCH (08:13)
[2020-11-14] MEDS: piperacillin/tazo 3.375gm/50ml 50 ML IV SCH ×2 (08:14→17:42)
[2020-11-14] MEDS: MULTIVIT-MIN/FERROUS GLUCONATE 9 MG/15 ML LIQUID PO SCH (08:27)
--- NOTE | 2020-11-14 09:24 | NUR ---
Per protocol, PD&P not indicated at this time. Pt has been spontaneously coughing and producing sputum on her own without difficulty. Pt has also been walking around the unit as well as using her flutter valve/IS every hour on her own. She states the flutter has been helping with sputum production. Pt has clear BS with no signs of SOB or distress Addendum: 11/14/20 at 0927 by Rox Castellon RT Amended: Links added.
[2020-11-14] MEDS: magnesium Cl slow-release 64mg tablet PO PRN ×2 (09:53→22:41)
[2020-11-14 10:25] LABS: ANISOCYTOSIS 1+; LARGE PLATELETS FEW; PLATELET ESTIMATE INCREASED
[2020-11-14] MEDS: morphine 2 MG/ML inj. syringe IV PRN ×2 (10:33→20:21)
[2020-11-14] MEDS: ondansetron/PF 4mg/2ml inj IV PRN (10:46)
[2020-11-14] MEDS ORDERED: mag hydrox/Alum hydrox/simeth 30ml oral suspension PO PRN (12:35)
[2020-11-14] MEDS: ketorolac tromethamine 15mg/ml inj. IV PRN ×2 (14:03→23:37)
[2020-11-14] MEDS: potassium Cl 40MEQ/1/2NS 520ml 520 ML IV PRN ×2 (14:28→19:46)
[2020-11-14] MEDS ORDERED: MIDAZolam 1 MG/ML 5ML VIAL ONE (14:44)
[2020-11-14] MEDS ORDERED: LIDOcaine Viscous 15ml cup ONE (14:44)
[2020-11-14] MEDS ORDERED: fentaNYL/PF 50MCG/1 ML 2ML syringe ONE (14:44)
--- NOTE | 2020-11-14 16:07 | NUR ---
Initial: Pt s/p sigmoid and transverse colon resection with an ascending colostomy. Pt PO intake 50-75% at meals on a low fiber/ soft diet, meeting estimated nutrient needs. 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 Pt pending OIL BURNER JOURNEYMAN BSS following EGD per EMR. Pt averages 800-900 ml of stool output in colostomy bag; WNL for new colostomy. Will continue to follow. Recommendation 1. Advance diet to low fiber as medically indicated 2. Bowel care per Rx 3. Scaled wt this admit Addendum: 11/14/20 at 1607 by Denise ROGEL STILL OPERATOR BRANDY RD Amended: Links added. Addendum: 11/14/20 at [address] KEL agrees w/ above planning intern note.
--- NOTE | 2020-11-14 17:00 | NUR ---
patient returned from EGD GI Nurse vinh noticed patients IV to right AC had small calloused over area when IV was removed. picture taken of site on return to unit. Attempt made to swab site for culture but site was dry. site cleaned and topical ABx appplied will continue to monitor.
--- NOTE | 2020-11-14 17:30 | NUR ---
patient c/o pain and nausea medicated as per EMAR with relief. Patient seen by Dr Whaley EGD ordered and done with Dr Collins see note. patient appeared much more settled following EGD. patient seen by Dr Syed diet advanced.
--- NOTE | 2020-11-14 18:04 | NUR ---
Problems reprioritized. Patient report given, questions answered & plan of care reviewed with MIRIAN Chicas.
[2020-11-14] MEDS: metoclopramide 5 mg/ml inj IV SCH (19:46)
[2020-11-14] MEDS: pantoprazole 40 MG vial IV SCH (19:46)
[2020-11-14] MEDS ORDERED: pantoprazole 40mg Tablet.DR PO SCH (20:00)
[2020-11-15] VITALS: BP 155/106
[2020-11-15] MEDS: piperacillin/tazo 3.375gm/50ml 50 ML IV SCH ×3 (01:37→16:39)
[2020-11-15] MEDS: metoclopramide 5 mg/ml inj IV SCH ×3 (01:42→14:00)
[2020-11-15] MEDS: oxyCODONE/APAP 10/325mg tablet PO PRN ×5 (02:22→22:19)
[2020-11-15 06:10] LABS: MAGNESIUM 1.5 MG/DL (1.5-2.4)
--- NOTE | 2020-11-15 06:47 | NUR ---
Problems reprioritized. Patient report given, questions answered & plan of care reviewed with RODERICK. Addendum: 11/15/20 at 0647 by João Mota RN Amended: Links added.
--- NOTE | 2020-11-15 06:51 | NUR ---
Patient in room MYRON 347. I have received report from MIRIAN Chicas and had the opportunity to ask questions and assume patient care.
[2020-11-15 07:00] VITALS: BP 153/95
[2020-11-15] MEDS: K and/or MAG REPLACEMENT MC SCH ×2 (08:00→20:00)
[2020-11-15] MEDS: pantoprazole 40 MG vial IV SCH ×2 (09:00→19:45)
[2020-11-15] MEDS: MULTIVIT-MIN/FERROUS GLUCONATE 9 MG/15 ML LIQUID PO SCH (09:01)
[2020-11-15] MEDS: lactobacillus rhamnosus 10,000 MMU CELLS/CAPSULE PO SCH ×2 (09:01→19:45)
[2020-11-15] MEDS: thiamine 100mg tablet PO SCH (09:02)
[2020-11-15] MEDS: folic acid 1mg tablet PO SCH (09:02)
[2020-11-15] MEDS: heparin, porcine 5000 units/ml vial SQ SCH ×2 (09:04→19:46)
[2020-11-15 10:09] LABS: POTASSIUM 3.7 MMOL/L (3.5-5.1)
[2020-11-15 11:00] VITALS: BP 167/98
[2020-11-15 11:30] LABS: HEMATOCRIT 30.9 % (35.0-45.0); HEMOGLOBIN 9.9 g/dl (12.0-16.0); MEAN CORPUSCULAR HEMOGLOBIN 29.4 PG (27.0-31.0); MEAN CORPUSCULAR HGB CONC 31.9 g/dL (33.0-36.5); MEAN CORPUSCULAR VOLUME 92.3 FL (78-98); MEAN PLATELET VOLUME 7.9 FL (7.4-10.4); PLATELET COUNT 536 X10'3 (140-440); RED BLOOD COUNT 3.35 X10'6 (4.20-5.60); RED CELL DISTRIBUTION WIDTH 17.7 % (11.5-14.5); WHITE BLOOD COUNT 17.7 X10'3 (4.5-11.0)
[2020-11-15 11:41] LABS: ANION GAP 13 (8-16); BLOOD UREA NITROGEN 7 MG/DL (7-18); BUN/CREATININE RATIO 12.7 (6.6-38.0); CALCIUM 8.1 MG/DL (8.5-10.1); CHLORIDE 100 MMOL/L (99-107); CREATININE 0.55 MG/DL (0.40-0.90); GLUCOSE 89 MG/DL (70-104); POTASSIUM 3.5 MMOL/L (3.5-5.1); SODIUM 138 MMOL/L (135-145); TOTAL CARBON DIOXIDE 25.4 MMOL/L (24-32); eGFR > 90 ML/MIN
--- NOTE | 2020-11-15 18:22 | NUR ---
Problems reprioritized. Patient report given, questions answered & plan of care reviewed with MIRIAN Foster.
[2020-11-15 20:00] VITALS: BP 150/85
[2020-11-15] MEDS ORDERED: diphenhydrAMINE 50 mg/ml inj IM ONE (22:00)
[2020-11-15] MEDS ORDERED: diphenhydrAMINE 50 mg/ml inj IV ONE (22:30)
[2020-11-16] VITALS: BP 129/94
[2020-11-16] MEDS: piperacillin/tazo 3.375gm/50ml 50 ML IV SCH (00:30)
[2020-11-16] MEDS: oxyCODONE/APAP 10/325mg tablet PO PRN ×2 (02:16→07:33)
[2020-11-16 06:00] LABS: ALBUMIN 1.8 G/DL (3.4-5.0); ANION GAP 13 (8-16); BLOOD UREA NITROGEN 6 MG/DL (7-18); BUN/CREATININE RATIO 12.8 (6.6-38.0); CALCIUM 7.9 MG/DL (8.5-10.1); CHLORIDE 100 MMOL/L (99-107); CREATININE 0.47 MG/DL (0.40-0.90); GLUCOSE 69 MG/DL (70-104); HEMATOCRIT 29.1 % (35.0-45.0); HEMOGLOBIN 9.5 g/dl (12.0-16.0); MAGNESIUM 1.3 MG/DL (1.5-2.4); MEAN CORPUSCULAR HEMOGLOBIN 30.2 PG (27.0-31.0); MEAN CORPUSCULAR HGB CONC 32.8 g/dL (33.0-36.5); MEAN CORPUSCULAR VOLUME 92.1 FL (78-98); MEAN PLATELET VOLUME 7.9 FL (7.4-10.4); PLATELET COUNT 480 X10'3 (140-440); POTASSIUM 3.1 MMOL/L (3.5-5.1); RED BLOOD COUNT 3.16 X10'6 (4.20-5.60); RED CELL DISTRIBUTION WIDTH 17.8 % (11.5-14.5); SODIUM 139 MMOL/L (135-145); TOTAL CARBON DIOXIDE 26.5 MMOL/L (24-32); WHITE BLOOD COUNT 19.5 X10'3 (4.5-11.0); eGFR > 90 ML/MIN
--- NOTE | 2020-11-16 06:32 | NUR ---
Patient in room MYRON 347. I have received report from Kristin VELA and had the opportunity to ask questions and assume patient care.
[2020-11-16 07:00] VITALS: BP 154/99
[2020-11-16] MEDS: pantoprazole 40 MG vial IV SCH ×2 (07:32→09:50)
[2020-11-16] MEDS: K and/or MAG REPLACEMENT MC SCH ×2 (08:00→20:00)
[2020-11-16] MEDS ORDERED: CefTRIAXone/D5W-Rocephin 1gm 50 ML IV ONE (09:00)
[2020-11-16] MEDS: folic acid 1mg tablet PO SCH (09:50)
[2020-11-16] MEDS: thiamine 100mg tablet PO SCH (09:50)
[2020-11-16] MEDS: MULTIVIT-MIN/FERROUS GLUCONATE 9 MG/15 ML LIQUID PO SCH (09:51)
[2020-11-16] MEDS: heparin, porcine 5000 units/ml vial SQ SCH ×2 (09:52→19:19)
[2020-11-16] MEDS: lactobacillus rhamnosus 10,000 MMU CELLS/CAPSULE PO SCH ×2 (09:54→19:20)
--- NOTE | 2020-11-16 10:29 | NUR ---
patient is ambulating halls independently, she completed 300 feet Addendum: 11/16/20 at 1029 by Chyna SARGENT Amended: Links added.
--- NOTE | 2020-11-16 10:35 | NUR ---
Patient did not took the KCL elixir due to "gastritis" concern. Patient requesting KCL tab instead
[2020-11-16] MEDS: morphine 2 MG/ML inj. syringe IV PRN (10:37)
[2020-11-16] MEDS: ondansetron/PF 4mg/2ml inj IV PRN (10:46)
[2020-11-16 11:00] VITALS: BP 160/104
[2020-11-16] MEDS: traMADol 50MG tablet PO PRN ×2 (12:19→19:07)
[2020-11-16] MEDS: HYDROmorphone inj. 0.5 MG/0.5 ML DISP.SYRIN IV PRN ×2 (14:12→21:28)
--- NOTE | 2020-11-16 18:43 | NUR ---
Problems reprioritized. Patient report given, questions answered & plan of care reviewed with Kristin VELA.
[2020-11-16] MEDS ORDERED: pantoprazole 40 MG vial IV ONE (19:45)
[2020-11-16 20:00] VITALS: BP 145/40
[2020-11-17] VITALS: BP 140/90
[2020-11-17] MEDS: metoclopramide 5 mg/ml inj IV SCH ×4 (01:24→20:50)
[2020-11-17] MEDS: ketorolac tromethamine 15mg/ml inj. IV PRN (01:28)
[2020-11-17] MEDS: HYDROmorphone inj. 0.5 MG/0.5 ML DISP.SYRIN IV PRN (05:20)
[2020-11-17 05:51] LABS: HEMATOCRIT 31.2 % (35.0-45.0); HEMOGLOBIN 10.4 g/dl (12.0-16.0); MEAN CORPUSCULAR HEMOGLOBIN 30.5 PG (27.0-31.0); MEAN CORPUSCULAR HGB CONC 33.3 g/dL (33.0-36.5); MEAN CORPUSCULAR VOLUME 91.5 FL (78-98); MEAN PLATELET VOLUME 7.9 FL (7.4-10.4); PLATELET COUNT 578 X10'3 (140-440); RED BLOOD COUNT 3.41 X10'6 (4.20-5.60); RED CELL DISTRIBUTION WIDTH 18.1 % (11.5-14.5); WHITE BLOOD COUNT 19.4 X10'3 (4.5-11.0)
[2020-11-17 05:54] LABS: ALBUMIN 1.8 G/DL (3.4-5.0); ANION GAP 10 (8-16); BLOOD UREA NITROGEN 4 MG/DL (7-18); BUN/CREATININE RATIO 8.5 (6.6-38.0); CALCIUM 7.9 MG/DL (8.5-10.1); CHLORIDE 99 MMOL/L (99-107); CREATININE 0.47 MG/DL (0.40-0.90); GLUCOSE 85 MG/DL (70-104); MAGNESIUM 1.4 MG/DL (1.5-2.4); POTASSIUM 3.3 MMOL/L (3.5-5.1); SODIUM 136 MMOL/L (135-145); TOTAL CARBON DIOXIDE 27.2 MMOL/L (24-32); eGFR > 90 ML/MIN
[2020-11-17] MEDS ORDERED: potassium Cl 40MEQ/1/2NS 520ml 520 ML IV PRN (07:55)
[2020-11-17] MEDS ORDERED: potassium Cl 20 mEq SR tablet PO PRN (07:55)
[2020-11-17] MEDS ORDERED: magnesium 4gm in 100ml NS 100 ML IV PRN (07:55)
[2020-11-17 08:00] VITALS: BP 143/91
[2020-11-17] MEDS: K and/or MAG REPLACEMENT MC SCH ×4 (08:00→20:00)
[2020-11-17] MEDS: folic acid 1mg tablet PO SCH (08:11)
[2020-11-17] MEDS: lactobacillus rhamnosus 10,000 MMU CELLS/CAPSULE PO SCH ×2 (08:11→20:49)
[2020-11-17] MEDS: potassium Cl 20 mEq SR tablet PO PRN ×3 (08:12→16:29)
[2020-11-17] MEDS: MULTIVIT-MIN/FERROUS GLUCONATE 9 MG/15 ML LIQUID PO SCH (08:12)
[2020-11-17] MEDS: magnesium Cl slow-release 64mg tablet PO PRN ×2 (08:13→20:49)
[2020-11-17] MEDS: oxyCODONE/APAP 10/325mg tablet PO PRN ×4 (08:15→20:49)
[2020-11-17] MEDS: heparin, porcine 5000 units/ml vial SQ SCH ×2 (08:16→20:50)
[2020-11-17] MEDS: CefTRIAXone/D5W-Rocephin 1gm 50 ML IV SCH (08:17)
[2020-11-17] MEDS: pantoprazole 40 MG vial IV SCH ×2 (08:18→20:50)
[2020-11-17] MEDS: thiamine 100mg tablet PO SCH (08:19)
[2020-11-17 11:57] VITALS: BP 129/87
[2020-11-17 12:05] LABS: ANISOCYTOSIS 2+; PLATELET ESTIMATE INCREASED; TOTAL CELLS COUNTED 100
[2020-11-17 12:24] LABS: BURR CELLS 1+
--- NOTE | 2020-11-17 12:51 | NUR ---
Student documentation: I have reviewed and agree with assessments performed and documented by SN Zabrina .
[2020-11-17] MEDS: vancomycin/NS 1 GM ADD-VANTAGE 250 ML IV SCH (15:05)
--- NOTE | 2020-11-17 18:53 | NUR ---
Patient in room MYRON 347. I have received report from SONIDO VELA and had the opportunity to ask questions and assume patient care.
--- NOTE | 2020-11-17 18:56 | NUR ---
Problems reprioritized. Patient report given, questions answered & plan of care reviewed with Prudence Rn and student.
[2020-11-17 19:00] VITALS: BP 130/81
[2020-11-17 23:50] VITALS: BP 128/78
[2020-11-18] MEDS: oxyCODONE/APAP 10/325mg tablet PO PRN ×6 (00:52→21:53)
[2020-11-18] MEDS ORDERED: VANCOMYCIN LEVEL IV ONE (01:30)
[2020-11-18 01:44] LABS: BASOPHILS # (AUTO) 0.1 X10'3 (0-0.2); BASOPHILS % (AUTO) 0.5 % (0-1); EOSINOPHILS # (AUTO) 0.1 X10'3 (0-0.9); EOSINOPHILS % (AUTO) 0.5 % (0-6); HEMATOCRIT 27.8 % (35.0-45.0); HEMOGLOBIN 9.3 g/dl (12.0-16.0); LYMPHOCYTES # (AUTO) 1.2 X10'3 (1.1-4.8); LYMPHOCYTES % (AUTO) 7.4 % (21-51); MEAN CORPUSCULAR HEMOGLOBIN 30.2 PG (27.0-31.0); MEAN CORPUSCULAR HGB CONC 33.3 g/dL (33.0-36.5); MEAN CORPUSCULAR VOLUME 90.8 FL (78-98); MEAN PLATELET VOLUME 7.8 FL (7.4-10.4); MONOCYTES # (AUTO) 1.1 X10'3 (0-0.9); MONOCYTES % (AUTO) 6.4 % (2-12); NEUTROPHILS % (AUTO) 85.2 % (42-75); PLATELET COUNT 582 X10'3 (140-440); RED BLOOD COUNT 3.07 X10'6 (4.20-5.60); RED CELL DISTRIBUTION WIDTH 17.4 % (11.5-14.5); WHITE BLOOD COUNT 16.4 X10'3 (4.5-11.0)
[2020-11-18 01:52] LABS: ALBUMIN 1.7 G/DL (3.4-5.0); ANION GAP 8 (8-16); BLOOD UREA NITROGEN 5 MG/DL (7-18); BUN/CREATININE RATIO 8.9 (6.6-38.0); CALCIUM 7.8 MG/DL (8.5-10.1); CHLORIDE 102 MMOL/L (99-107); CREATININE 0.56 MG/DL (0.40-0.90); GLUCOSE 107 MG/DL (70-104); MAGNESIUM 1.3 MG/DL (1.5-2.4); SODIUM 137 MMOL/L (135-145); eGFR > 90 ML/MIN
[2020-11-18] MEDS: vancomycin/NS 1 GM ADD-VANTAGE 250 ML IV SCH ×2 (02:15→15:27)
[2020-11-18] MEDS: metoclopramide 5 mg/ml inj IV SCH ×4 (02:15→20:23)
[2020-11-18 05:25] LABS: PLATELET ESTIMATE INCREASED; TOTAL CELLS COUNTED 100
[2020-11-18 05:27] LABS: ANISOCYTOSIS 1+; POLYCHROMASIA 1+; TOXIC GRANULATION 2+
--- NOTE | 2020-11-18 06:30 | NUR ---
Problems reprioritized. Patient report given, questions answered & plan of care reviewed with REBECCA VELA.
--- NOTE | 2020-11-18 06:31 | NUR ---
Problems reprioritized. Patient report given, questions answered & plan of care reviewed with REBECCA VELA.
[2020-11-18 07:00] VITALS: BP 145/99
--- NOTE | 2020-11-18 07:09 | NUR ---
Patient in room MYRON 347. I have received report from Emely VELA and had the opportunity to ask questions and assume patient care.
[2020-11-18] MEDS: K and/or MAG REPLACEMENT MC SCH ×4 (08:00→20:00)
[2020-11-18] MEDS: lactobacillus rhamnosus 10,000 MMU CELLS/CAPSULE PO SCH ×2 (09:15→20:23)
[2020-11-18] MEDS: folic acid 1mg tablet PO SCH (09:16)
[2020-11-18] MEDS: pantoprazole 40 MG vial IV SCH ×2 (09:16→20:23)
[2020-11-18] MEDS: thiamine 100mg tablet PO SCH (09:16)
[2020-11-18] MEDS: MULTIVIT-MIN/FERROUS GLUCONATE 9 MG/15 ML LIQUID PO SCH (09:16)
[2020-11-18] MEDS: CefTRIAXone/D5W-Rocephin 1gm 50 ML IV SCH (09:17)
[2020-11-18] MEDS: heparin, porcine 5000 units/ml vial SQ SCH ×2 (09:17→20:23)
--- NOTE | 2020-11-18 10:51 | NUR ---
Notified Zita VELA with wound care that patients wound vac appears to have stool above the foam of the wound vac, unable to determine if the colostomy is leaking into that area. Per Zita she will come and look at the site. Addendum: 11/18/20 at 1824 by Kelli Agustin RN Dr Farah and Dr Mckeon aware
[2020-11-18 11:00] VITALS: BP 133/100
[2020-11-18] MEDS ORDERED: LIDOcaine 4% (40 mg/ml) topical solution 50ml TP ONE (12:20)
--- NOTE | 2020-11-18 14:21 | NUR ---
Reassessment: Pt s/p BSS with ENGINEERING PROGRAM ANALYST, recommended pt to eat slowly d/t Cosby's esophagitis and to continue low fiber diet. Pt PO intake 25-50% however RD and RD campus recruiting intern met with pt 11/17, pt reports enjoying and feeling full from meals; pt denies any food preferences at this time as dietary services director assists pt with meal selections. Last BM 11/17 with 450 ml output from colostomy, WNL for new colostomy. Will continue to follow. Recommendation: 1. Continue low fiber diet per ENGINEERING PROGRAM ANALYST/MD recs 2. Bowel care per Rx 3. Scaled wt this admit Addendum: 11/18/20 at [address] Amended: Links added. Addendum: 11/18/20 at [address] I have reviewed and agree with note by sales intern. Toma Harley RD
--- NOTE | 2020-11-18 18:24 | NUR ---
Problems reprioritized. Patient report given, questions answered & plan of care reviewed with Prudence RN.
[2020-11-19 00:58] VITALS: BP 129/82
[2020-11-19] MEDS ORDERED: VANCOMYCIN LEVEL IV ONE (01:30)
[2020-11-19 02:16] LABS: BASOPHILS # (AUTO) 0.1 X10'3 (0-0.2); BASOPHILS % (AUTO) 0.4 % (0-1); EOSINOPHILS # (AUTO) 0.1 X10'3 (0-0.9); EOSINOPHILS % (AUTO) 0.7 % (0-6)
[2020-11-19 02:17] LABS: HEMATOCRIT 29.8 % (35.0-45.0); HEMOGLOBIN 9.8 g/dl (12.0-16.0); LYMPHOCYTES # (AUTO) 1.7 X10'3 (1.1-4.8); LYMPHOCYTES % (AUTO) 11.4 % (21-51); MEAN CORPUSCULAR HGB CONC 32.9 g/dL (33.0-36.5); MEAN CORPUSCULAR VOLUME 91.4 FL (78-98); MONOCYTES # (AUTO) 1.2 X10'3 (0-0.9); MONOCYTES % (AUTO) 7.8 % (2-12); NEUTROPHILS # (AUTO) 11.8 X10'3 (1.8-7.7); NEUTROPHILS % (AUTO) 79.7 % (42-75); PLATELET COUNT 743 X10'3 (140-440); RED BLOOD COUNT 3.26 X10'6 (4.20-5.60); RED CELL DISTRIBUTION WIDTH 17.6 % (11.5-14.5); WHITE BLOOD COUNT 14.8 X10'3 (4.5-11.0)
[2020-11-19 02:18] LABS: ALBUMIN 1.9 G/DL (3.4-5.0); ANION GAP 9 (8-16); BLOOD UREA NITROGEN 3 MG/DL (7-18); BUN/CREATININE RATIO 5.5 (6.6-38.0); CALCIUM 8.1 MG/DL (8.5-10.1); CHLORIDE 101 MMOL/L (99-107); CREATININE 0.55 MG/DL (0.40-0.90); GLUCOSE 96 MG/DL (70-104); MAGNESIUM 1.4 MG/DL (1.5-2.4); POTASSIUM 3.5 MMOL/L (3.5-5.1); SODIUM 138 MMOL/L (135-145); TOTAL CARBON DIOXIDE 27.6 MMOL/L (24-32); VANCOMYCIN,TROUGH 8.3 UG/ML (6.0-14.0); eGFR > 90 ML/MIN
[2020-11-19] MEDS: metoclopramide 5 mg/ml inj IV SCH ×4 (02:23→20:09)
[2020-11-19] MEDS: oxyCODONE/APAP 10/325mg tablet PO PRN ×4 (02:23→20:10)
[2020-11-19] MEDS: vancomycin/NS 1 GM ADD-VANTAGE 250 ML IV SCH (02:24)
[2020-11-19 04:15] LABS: ANISOCYTOSIS 1+; PLATELET ESTIMATE INCREASED; TOTAL CELLS COUNTED 100
[2020-11-19 04:16] LABS: LARGE PLATELETS FEW; POLYCHROMASIA FEW; TOXIC GRANULATION 1+
[2020-11-19] MEDS: ketorolac tromethamine 15mg/ml inj. IV PRN (05:45)
--- NOTE | 2020-11-19 06:22 | NUR ---
Problems reprioritized. Patient report given, questions answered & plan of care reviewed with RODERICK VELA.
--- NOTE | 2020-11-19 06:43 | NUR ---
Patient in room MYRON 347. I have received report from MIRIAN Han and had the opportunity to ask questions and assume patient care.
[2020-11-19 07:00] VITALS: BP 149/97
[2020-11-19] MEDS: K and/or MAG REPLACEMENT MC SCH ×4 (08:00→20:00)
[2020-11-19] MEDS: MULTIVIT-MIN/FERROUS GLUCONATE 9 MG/15 ML LIQUID PO SCH (08:00)
[2020-11-19] MEDS: folic acid 1mg tablet PO SCH (08:00)
[2020-11-19] MEDS: lactobacillus rhamnosus 10,000 MMU CELLS/CAPSULE PO SCH ×2 (08:00→20:27)
[2020-11-19] MEDS: thiamine 100mg tablet PO SCH (08:00)
[2020-11-19] MEDS: ondansetron/PF 4mg/2ml inj IV PRN (08:48)
[2020-11-19] MEDS: pantoprazole 40 MG vial IV SCH ×2 (08:48→20:09)
[2020-11-19] MEDS: heparin, porcine 5000 units/ml vial SQ SCH ×2 (08:49→20:27)
[2020-11-19] MEDS: CefTRIAXone/D5W-Rocephin 1gm 50 ML IV SCH (09:01)
[2020-11-19] MEDS: VANCOmycin 1250MG/NS 250ml Bag 250 ML IV SCH (14:10)
--- NOTE | 2020-11-19 18:46 | NUR ---
Problems reprioritized. Patient report given, questions answered & plan of care reviewed with MIRIAN Henry.
[2020-11-19 20:00] VITALS: BP 161/95
[2020-11-19] MEDS: docusate sodium 100mg/10ml UD cup PO SCH (20:25)
[2020-11-19] MEDS: magnesium Cl slow-release 64mg tablet PO PRN (20:27)
--- NOTE | 2020-11-19 22:44 | NUR ---
Patient in room MYRON 347. I have received report from Cristi and had the opportunity to ask questions and assume patient care. Austin VELA
[2020-11-20] MEDS: oxyCODONE/APAP 10/325mg tablet PO PRN ×6 (00:16→23:56)
[2020-11-20] MEDS: VANCOmycin 1250MG/NS 250ml Bag 250 ML IV SCH ×2 (02:30→14:16)
[2020-11-20] MEDS: metoclopramide 5 mg/ml inj IV SCH ×4 (02:30→19:34)
[2020-11-20 06:18] LABS: EOSINOPHILS # (AUTO) 0.1 X10'3 (0-0.9); EOSINOPHILS % (AUTO) 0.6 % (0-6); HEMOGLOBIN 9.3 g/dl (12.0-16.0); MEAN PLATELET VOLUME 7.9 FL (7.4-10.4); RED CELL DISTRIBUTION WIDTH 17.6 % (11.5-14.5)
--- NOTE | 2020-11-20 06:19 | NUR ---
I agree wth MIRIAN Avila new hire assements, documentation, med pass, and report, given to MIRIAN coronel & MIRIAN Cunha
[2020-11-20 06:21] LABS: BASOPHILS % (AUTO) 0.3 % (0-1); HEMATOCRIT 28.9 % (35.0-45.0); LYMPHOCYTES % (AUTO) 8.9 % (21-51); MEAN CORPUSCULAR HEMOGLOBIN 29.4 PG (27.0-31.0); MEAN CORPUSCULAR HGB CONC 32.3 g/dL (33.0-36.5); MONOCYTES # (AUTO) 1.1 X10'3 (0-0.9); MONOCYTES % (AUTO) 9.7 % (2-12); NEUTROPHILS # (AUTO) 9.4 X10'3 (1.8-7.7); NEUTROPHILS % (AUTO) 80.5 % (42-75); PLATELET COUNT 658 X10'3 (140-440); RED BLOOD COUNT 3.17 X10'6 (4.20-5.60); WHITE BLOOD COUNT 11.6 X10'3 (4.5-11.0)
--- NOTE | 2020-11-20 06:26 | NUR ---
Problems reprioritized. Patient report given, questions answered & plan of care reviewed with Karlo VELA.
[2020-11-20 06:28] LABS: ALBUMIN 1.7 G/DL (3.4-5.0); ANION GAP 10 (8-16); BLOOD UREA NITROGEN 4 MG/DL (7-18); BUN/CREATININE RATIO 7.3 (6.6-38.0); CALCIUM 8.3 MG/DL (8.5-10.1); CHLORIDE 105 MMOL/L (99-107); CREATININE 0.55 MG/DL (0.40-0.90); GLUCOSE 101 MG/DL (70-104); MAGNESIUM 1.6 MG/DL (1.5-2.4); POTASSIUM 3.1 MMOL/L (3.5-5.1); SODIUM 139 MMOL/L (135-145); TOTAL CARBON DIOXIDE 24.3 MMOL/L (24-32); eGFR > 90 ML/MIN
[2020-11-20 07:29] VITALS: BP 142/92
[2020-11-20] MEDS: K and/or MAG REPLACEMENT MC SCH ×3 (08:00→19:35)
[2020-11-20] MEDS: thiamine 100mg tablet PO SCH (08:03)
[2020-11-20] MEDS: lactobacillus rhamnosus 10,000 MMU CELLS/CAPSULE PO SCH ×2 (08:04→19:35)
[2020-11-20] MEDS: folic acid 1mg tablet PO SCH (08:04)
[2020-11-20] MEDS: MULTIVIT-MIN/FERROUS GLUCONATE 9 MG/15 ML LIQUID PO SCH (08:04)
[2020-11-20] MEDS: docusate sodium 100mg/10ml UD cup PO SCH (08:04)
[2020-11-20] MEDS: pantoprazole 40 MG vial IV SCH ×2 (08:05→19:34)
[2020-11-20] MEDS: heparin, porcine 5000 units/ml vial SQ SCH ×2 (08:05→19:36)
[2020-11-20 10:01] LABS: ANISOCYTOSIS 1+; GIANT PLATELET FEW; LARGE PLATELETS FEW; PLATELET ESTIMATE INCREASED; POLYCHROMASIA FEW; TOTAL CELLS COUNTED 100
[2020-11-20] MEDS: CefTRIAXone/D5W-Rocephin 1gm 50 ML IV SCH (10:23)
[2020-11-20 11:00] VITALS: BP 149/99
--- NOTE | 2020-11-20 13:01 | NUR ---
Naz VELA approached me to resolve the issue with Percocet 10/325mg taken from [facility]. Naz VELA showed me the unopened Percocet. She returned 1 tab of Percocet back to [facility] machine then she took 1 Percocet to be administer to this patient, last count was 18 after she pulled 1 tab of Percocet. Pharmacy notified about this, advised me to make a note and will have pharmacy scheduler come and help. Rocio pharmacy scheduler came by and we resolved the discrepancy issued.
[2020-11-20] MEDS: POTASSIUM BICARB 20meq eff tab 20 MEQ TABLET.EFF PO PRN (16:21)
[2020-11-20] MEDS ORDERED: potassium Cl 20 mEq SR tablet PO PRN ×2 (16:25)
[2020-11-20] MEDS ORDERED: magnesium Cl slow-release 64mg tablet PO PRN (16:25)
[2020-11-20] MEDS ORDERED: magnesium 4gm in 100ml NS 100 ML IV PRN (16:25)
--- NOTE | 2020-11-20 17:17 | NUR ---
educated patient on colostomy bag care and emptying, patient performed well, will need reinforcement and encouragement still though.
[2020-11-20] MEDS: traMADol 50MG tablet PO PRN (17:36)
--- NOTE | 2020-11-20 17:59 | NUR ---
Problems reprioritized. Patient report given, questions answered & plan of care reviewed with Adrianna VELA.
--- NOTE | 2020-11-20 18:44 | NUR ---
I have received report from Karlo VELA and had the opportunity to ask questions and assume patient care.
[2020-11-20 19:00] VITALS: BP 164/100
[2020-11-20 20:00] VITALS: BP 143/99
[2020-11-20] MEDS: docusate sod 100mg capsule PO SCH (20:05)
[2020-11-21] VITALS: BP 156/105
--- NOTE | 2020-11-21 | NUR ---
While assessing the patients colostomy and wound vac, I noticed the wound vac was suctioning drainage from colostomy. The patients said that on Saturday Dr. Mckeon had noticed the wound vac was suctioning drainage from the colostomy and stated that he was not worried about it because the drainage was on top of the black sponge. The pt said that Dr. Mckeon was in Saturday and assessed the colostomy and wound vac. I notified discharge specialist and we cut film from the wound vac, cleaned the area and placed more film on the wound vac. The wound vac has good suction, no leaks detected, and no drainage from the colostomy appears to be draining into the wound vac.
[2020-11-21] MEDS ORDERED: VANCOMYCIN LEVEL IV ONE (01:30)
[2020-11-21] MEDS: VANCOmycin 1250MG/NS 250ml Bag 250 ML IV SCH (02:12)
[2020-11-21] MEDS: metoclopramide 5 mg/ml inj IV SCH ×4 (02:12→19:36)
[2020-11-21 02:50] LABS: MAGNESIUM 1.4 MG/DL (1.5-2.4); POTASSIUM 3.6 MMOL/L (3.5-5.1); VANCOMYCIN,TROUGH 12.3 UG/ML (6.0-14.0)
[2020-11-21] MEDS: oxyCODONE/APAP 10/325mg tablet PO PRN ×5 (04:00→21:34)
--- NOTE | 2020-11-21 06:17 | NUR ---
Problems reprioritized. Patient report given, questions answered & plan of care reviewed with Karlo VELA.
--- NOTE | 2020-11-21 06:24 | NUR ---
Patient in room MYRON 346. I have received report from Adrianna VELA and had the opportunity to ask questions and assume patient care
[2020-11-21] MEDS: CefTRIAXone/D5W-Rocephin 1gm 50 ML IV SCH (07:18)
[2020-11-21] MEDS: MULTIVIT-MIN/FERROUS GLUCONATE 9 MG/15 ML LIQUID PO SCH (07:18)
[2020-11-21] MEDS: docusate sod 100mg capsule PO SCH ×2 (07:18→19:35)
[2020-11-21] MEDS: folic acid 1mg tablet PO SCH (07:19)
[2020-11-21] MEDS: lactobacillus rhamnosus 10,000 MMU CELLS/CAPSULE PO SCH ×2 (07:19→19:35)
[2020-11-21] MEDS: thiamine 100mg tablet PO SCH (07:19)
[2020-11-21] MEDS: pantoprazole 40 MG vial IV SCH (07:21)
[2020-11-21] MEDS: heparin, porcine 5000 units/ml vial SQ SCH ×2 (07:21→19:32)
[2020-11-21] MEDS: K and/or MAG REPLACEMENT MC SCH ×2 (08:00→19:40)
[2020-11-21 09:47] LABS: BASOPHILS # (AUTO) 0.1 X10'3 (0-0.2); BASOPHILS % (AUTO) 0.7 % (0-1); EOSINOPHILS # (AUTO) 0.1 X10'3 (0-0.9); EOSINOPHILS % (AUTO) 0.5 % (0-6); HEMATOCRIT 30.6 % (35.0-45.0); HEMOGLOBIN 9.9 g/dl (12.0-16.0); LYMPHOCYTES # (AUTO) 1.1 X10'3 (1.1-4.8); LYMPHOCYTES % (AUTO) 7.5 % (21-51); MEAN CORPUSCULAR HEMOGLOBIN 29.6 PG (27.0-31.0); MEAN CORPUSCULAR HGB CONC 32.3 g/dL (33.0-36.5); MEAN CORPUSCULAR VOLUME 91.5 FL (78-98); MEAN PLATELET VOLUME 7.7 FL (7.4-10.4); NEUTROPHILS # (AUTO) 12.1 X10'3 (1.8-7.7); NEUTROPHILS % (AUTO) 84.3 % (42-75); PLATELET COUNT 966 X10'3 (140-440); RED BLOOD COUNT 3.35 X10'6 (4.20-5.60); RED CELL DISTRIBUTION WIDTH 17.8 % (11.5-14.5); WHITE BLOOD COUNT 14.4 X10'3 (4.5-11.0)
[2020-11-21 09:58] LABS: ALANINE AMINOTRANSFERASE 10 U/L (12-78); ALBUMIN/GLOBULIN RATIO 0.4 (1.1-1.5); ALKALINE PHOSPHATASE 146 IU/L (46-116); ANION GAP 13 (8-16); ASPARTATE AMINO TRANSFERASE 11 U/L (10-37); BILIRUBIN,TOTAL 0.3 MG/DL (0.1-1.0); BLOOD UREA NITROGEN 4 MG/DL (7-18); BUN/CREATININE RATIO 5.9 (6.6-38.0); CALCIUM 8.1 MG/DL (8.5-10.1); CHLORIDE 101 MMOL/L (99-107); CREATININE 0.68 MG/DL (0.40-0.90); GLUCOSE 106 MG/DL (70-104); POTASSIUM 3.7 MMOL/L (3.5-5.1); SODIUM 137 MMOL/L (135-145); TOTAL CARBON DIOXIDE 22.6 MMOL/L (24-32); TOTAL PROTEIN 6.9 G/DL (6.4-8.2); eGFR 90 ML/MIN
[2020-11-21 10:08] LABS: ANISOCYTOSIS 1+; PLATELET ESTIMATE INCREASED; TOTAL CELLS COUNTED 100
[2020-11-21 10:09] LABS: POLYCHROMASIA FEW; SCHISTOCYTES FEW
[2020-11-21 10:10] VITALS: BP 150/95
[2020-11-21 10:10] LABS: LARGE PLATELETS FEW
[2020-11-21] MEDS ORDERED: LIDOcaine 4% (40 mg/ml) topical solution 50ml TP ONE (10:10)
--- NOTE | 2020-11-21 10:26 | NUR ---
PAGER ID: [phone] MESSAGE: Karlo Beth [phone], [id number] WBC 14.4 for 11/21 ABx D/C this morning, Plt up to 966 despite Heparin daily also...
[2020-11-21] MEDS: piperacillin/tazo 3.375gm/50ml 50 ML IV SCH (11:34)
[2020-11-21] MEDS: magnesium Cl slow-release 64mg tablet PO SCH ×2 (11:41→19:35)
[2020-11-21] MEDS: potassium Cl 20 mEq SR tablet PO SCH ×2 (11:41→17:49)
[2020-11-21 13:31] VITALS: BP 136/93
[2020-11-21] MEDS ORDERED: vancomycin 1500mg/300ml PREMIX 250 ML IV SCH (14:00)
--- NOTE | 2020-11-21 18:25 | NUR ---
Patient in room MYRON 347. I have received report from KIA VELA and had the opportunity to ask questions and assume patient care. Addendum: 11/21/20 at 1826 by Rosa Morel RN Amended: Links added.
[2020-11-21 19:00] VITALS: BP 162/101
--- NOTE | 2020-11-21 19:40 | NUR ---
pt awake took hs meds then on the phone with a friend no complaints at this time.
--- NOTE | 2020-11-21 21:40 | NUR ---
resting eyes closed without changes at this time.
[2020-11-21 23:09] VITALS: BP 149/95
[2020-11-22] MEDS: HYDROmorphone inj. 0.5 MG/0.5 ML DISP.SYRIN IV PRN ×4 (00:09→19:05)
[2020-11-22] MEDS: piperacillin/tazo 3.375gm/50ml 50 ML IV SCH ×2 (00:15→07:40)
--- NOTE | 2020-11-22 00:26 | NUR ---
pt woke up in pain used bedside commode and pain increased. pt ate more food and walked more today. currently no gas in the colostomy bag and stomach soft. pt feels pressure like she wants to pass gas and stool but has not. medicated with diladid iv and encouraged to ambulate as the pain eases off.
--- NOTE | 2020-11-22 01:05 | NUR ---
pt assisted up and ambulated in the nobles x2 laps. no gas passed. no changes with the wound and colostomy.
[2020-11-22] MEDS: metoclopramide 5 mg/ml inj IV SCH ×3 (02:14→13:14)
--- NOTE | 2020-11-22 02:18 | NUR ---
reglan given and warm water to drink. no flatus or drainage in the colostomy bag.
[2020-11-22] MEDS: oxyCODONE/APAP 10/325mg tablet PO PRN ×4 (03:20→17:22)
--- NOTE | 2020-11-22 03:23 | NUR ---
awoke in pain up to bedside commode to void 250cc cl yellow urine.
--- NOTE | 2020-11-22 04:27 | NUR ---
pt up to bedside commode to void. pain shot up to 9/10 medicated for pain with iv diladid for this. iv zosyn completed. colostomy with 1cc purulent looking drainage and wound vac with 10cc of brown serous drainage.
[2020-11-22 05:53] LABS: BASOPHILS # (AUTO) 0.1 X10'3 (0-0.2); BASOPHILS % (AUTO) 0.5 % (0-1); EOSINOPHILS # (AUTO) 0.1 X10'3 (0-0.9); EOSINOPHILS % (AUTO) 0.5 % (0-6); HEMATOCRIT 27.7 % (35.0-45.0); HEMOGLOBIN 8.9 g/dl (12.0-16.0); LYMPHOCYTES # (AUTO) 0.9 X10'3 (1.1-4.8); LYMPHOCYTES % (AUTO) 7.8 % (21-51); MEAN CORPUSCULAR HEMOGLOBIN 29.3 PG (27.0-31.0); MEAN CORPUSCULAR HGB CONC 32.1 g/dL (33.0-36.5); MEAN CORPUSCULAR VOLUME 91.4 FL (78-98); MEAN PLATELET VOLUME 7.6 FL (7.4-10.4); MONOCYTES # (AUTO) 1.1 X10'3 (0-0.9); MONOCYTES % (AUTO) 8.9 % (2-12); NEUTROPHILS # (AUTO) 9.7 X10'3 (1.8-7.7); NEUTROPHILS % (AUTO) 82.3 % (42-75); PLATELET COUNT 864 X10'3 (140-440); RED BLOOD COUNT 3.03 X10'6 (4.20-5.60); RED CELL DISTRIBUTION WIDTH 17.8 % (11.5-14.5); WHITE BLOOD COUNT 11.8 X10'3 (4.5-11.0)
[2020-11-22 06:02] LABS: ALANINE AMINOTRANSFERASE 9 U/L (12-78); ALBUMIN 1.9 G/DL (3.4-5.0); ALBUMIN/GLOBULIN RATIO 0.4 (1.1-1.5); ALKALINE PHOSPHATASE 127 IU/L (46-116); ANION GAP 10 (8-16); ASPARTATE AMINO TRANSFERASE 12 U/L (10-37); BILIRUBIN,TOTAL 0.3 MG/DL (0.1-1.0); BLOOD UREA NITROGEN 6 MG/DL (7-18); BUN/CREATININE RATIO 10.2 (6.6-38.0); CALCIUM 8.2 MG/DL (8.5-10.1); CHLORIDE 102 MMOL/L (99-107); CREATININE 0.59 MG/DL (0.40-0.90); GLUCOSE 100 MG/DL (70-104); POTASSIUM 4.1 MMOL/L (3.5-5.1); SODIUM 138 MMOL/L (135-145); TOTAL CARBON DIOXIDE 25.6 MMOL/L (24-32); TOTAL PROTEIN 6.4 G/DL (6.4-8.2); eGFR > 90 ML/MIN
--- NOTE | 2020-11-22 06:21 | NUR ---
Problems reprioritized. Patient report given, questions answered & plan of care reviewed with NAZ VELA. Addendum: 11/22/20 at 0622 by Rosa Morel RN Amended: Links added.
[2020-11-22 06:56] LABS: ANISOCYTOSIS 1+; ELLIPTOCYTES FEW; HYPOCHROMASIA 2+; LARGE PLATELETS FEW; PLATELET ESTIMATE INCREASED; POLYCHROMASIA FEW; SCHISTOCYTES FEW; TOTAL CELLS COUNTED 100
[2020-11-22 07:00] VITALS: BP 141/94
--- NOTE | 2020-11-22 07:09 | NUR ---
Patient in room [facility] 347. I have received report from MIRIAN Lee and had the opportunity to ask questions and assume patient care.
[2020-11-22] MEDS ORDERED: pantoprazole 40mg Tablet.DR PO SCH (07:30)
[2020-11-22] MEDS: magnesium Cl slow-release 64mg tablet PO SCH (07:40)
[2020-11-22] MEDS: thiamine 100mg tablet PO SCH (07:41)
[2020-11-22] MEDS: folic acid 1mg tablet PO SCH (07:41)
[2020-11-22] MEDS: lactobacillus rhamnosus 10,000 MMU CELLS/CAPSULE PO SCH (07:41)
[2020-11-22] MEDS: docusate sod 100mg capsule PO SCH (07:42)
[2020-11-22] MEDS: MULTIVIT-MIN/FERROUS GLUCONATE 9 MG/15 ML LIQUID PO SCH (07:42)
[2020-11-22] MEDS: potassium Cl 20 mEq SR tablet PO SCH ×2 (07:42→17:03)
[2020-11-22] MEDS: heparin, porcine 5000 units/ml vial SQ SCH (07:43)
[2020-11-22] MEDS: K and/or MAG REPLACEMENT MC SCH (07:57)
--- NOTE | 2020-11-22 09:21 | NUR ---
Reassessment: Pt continues on low fiber/soft diet and documented with 75-100% PO intake meeting estimated nutrient needs. LBM 11/20 documented with 100 mL stool output per I&O. Pt receiving routine bowel care and prokinetic agent with additional PRN bowel care available. No nutrition intervention implemented at this time. Will continue to follow. Recommendation: 1. Continue low fiber/soft diet 2. Monitor need for additional protein 3. Bowel care per rx 4. Scaled wt this admit; routine scaled weights thereafter Addendum: 11/22/20 at [address] Amended: Links added.
[2020-11-22] MEDS ORDERED: HYDROcodone/acetaminophen 5mg/325mg tablet PO PRN (09:35)
[2020-11-22] MEDS ORDERED: CefTRIAXone/D5W-Rocephin 1gm 50 ML IV ONE (09:50)
[2020-11-22 11:00] VITALS: BP 144/101
[2020-11-22] MEDS ORDERED: Dakins solution (1/4 strength) 473ml solution TP PRN (11:00)
--- NOTE | 2020-11-22 11:35 | NUR ---
PAGER ID: [phone] MESSAGE: Camron Soliman [phone] - Zeina Giron - [id number] - Patient has been experiencing a trend of high BP for the past couple of days. Todays were: 0800: 141/94 1100: 144/101. Any new orders?
[2020-11-22] MEDS ORDERED: lisinopril 20mg tablet PO SCH (12:20)
--- NOTE | 2020-11-22 14:48 | NUR ---
Dr. Mckeon aware per patient her colostomy has not produced gas or stool since having her wound vac dressing changed yesterday and however it is draining creamy white drainage. Dr Culp asked that Dr. Farah be notified. Dr. Farah called and updated. Per Dr. Farah "It's okay. I can't imagine anything going wrong with it. She can follow up with me in 1 week."
--- NOTE | 2020-11-22 18:30 | NUR ---
Problems reprioritized. Patient report given, questions answered & plan of care reviewed with MIRIAN Lee.
--- NOTE | 2020-11-22 18:34 | NUR ---
Called to room by PCT Ko that patient's colostomy bag "has blown off." Went to check patient and large amount of stool noted to be on patient's gown and to be leaking from side of colostomy bag and underneath patient's wound vac dressing. Wound vac dressing taken down and cleansed with Dakins solution and packed with Dakins moist gauze, secured with ABD pad and silk tape (no medipore tape available) as ordered. Dr. Farah aware of events of colostomy drainage leaking and wound vac dressing takedown with dressing change as ordered. Colostomy device and drainage bag changed, patent, CDI. Dr. Farah okayed patient to still go to [facility].
--- NOTE | 2020-11-22 18:34 | NUR ---
Patient in room [facility] 347. I have received report from LUDA VELA'S and had the opportunity to ask questions and assume patient care. Addendum: 11/22/20 at 1835 by Rosa Morel RN Amended: Links added.
[2020-11-22 18:45] VITALS: BP 156/97
--- NOTE | 2020-11-22 19:00 | NUR ---
amr arrived to transport pt with 3 people. pt medicated for pain with iv diladid inright lower forearm. flushed easily and medicated for transport. all belongings gathered and given to transport team of 3 including iv vancomycin dose pt is to get at 9pm. no other hs meds given and calling report to ophelia gomez. 1911 pt wheeled off the unit with amr. brief report and transfer papers given to them prior to leaving. pt appears comfortable a/o pleasant.
--- NOTE | 2020-11-22 19:15 | NUR ---
Problems reprioritized. Patient report given, questions answered & plan of care reviewed with [facility] GREGORIO VELA. Addendum: 11/22/20 at 1930 by Rosa Morel RN Amended: Links added.
[2020-11-23] MEDS ORDERED: CefTRIAXone/D5W-Rocephin 1gm 50 ML IV SCH (08:00)
[2020-11-23] MEDS ORDERED: VANCOMYCIN LEVEL IV ONE (20:30)
== END 2020-11-22 19:13 | DRG 231 ==
LOC: ER 13:42 → PCU 3S 18:04 → SUR 3N 11-11 19:15
PROVIDERS: ADMIT Family Medicine; ATTEND Family Medicine
PROC: 0DBM0ZZ Excision of Descending Colon, Open Approach (ICD-10-PCS; 2020-11-09)
PROC: 3E0T3BZ Introduction of Anesthetic Agent into Peripheral Nerves and Plexi, Percutaneous Approach (ICD-10-PCS; 2020-11-09)
PROC: 3E0T33Z Introduction of Anti-inflammatory into Peripheral Nerves and Plexi, Percutaneous Approach (ICD-10-PCS; 2020-11-09)
PROC: 0DBN0ZZ Excision of Sigmoid Colon, Open Approach (ICD-10-PCS; principal; 2020-11-09 19:00)
PROC: 0DB58ZX Excision of Esophagus, Via Natural or Artificial Opening Endoscopic, Diagnostic (ICD-10-PCS; 2020-11-14)
DX: K63.1 Perforation of intestine (nontraumatic) (principal); K65.0 Generalized (acute) peritonitis; J69.0 Pneumonitis due to inhalation of food and vomit; E87.2 Acidosis; K22.10 Ulcer of esophagus without bleeding; K56.41 Fecal impaction; F10.20 Alcohol dependence, uncomplicated; K21.00 Gastro-esophageal reflux disease with esophagitis, without bleeding; F32.9 Major depressive disorder, single episode, unspecified; F41.9 Anxiety disorder, unspecified; K44.9 Diaphragmatic hernia without obstruction or gangrene; B96.20 Unspecified Escherichia coli [E. coli] as the cause of diseases classified elsewhere; D64.9 Anemia, unspecified; I10 Essential (primary) hypertension; E87.6 Hypokalemia; J44.9 Chronic obstructive pulmonary disease, unspecified; E78.00 Pure hypercholesterolemia, unspecified; I25.10 Atherosclerotic heart disease of native coronary artery without angina pectoris; Z79.4 Long term (current) use of insulin; Z59.0 Homelessness; Z82.49 Family history of ischemic heart disease and other diseases of the circulatory system; Z85.41 Personal history of malignant neoplasm of cervix uteri; Z85.528 Personal history of other malignant neoplasm of kidney
CPT/HCPCS: 36415; 36600; 43239; 71045; 74176; 80048; 80053; 80061; 80202; 81001; 81025; 82150; 82803; 82948; 83036; 83605; 83690; 83735; 84100; 84132; 85007; 85008; 85018; 85025; 85027; 85610; 86885; 86900; 86901; 87040; 87070; 87077; 87081; 87186; 92508; 92616; 93005; 94640; 94667; 94668; 94760; 96365; 96375; 99152; 99291; A4618; A4620; A6446; A6449; A7000; C1758; C9113; G0378; J0131; J0694; J0696; J0780; J1100; J1170; J1200; J1644; J1885; J1940; J2001; J2175; J2250; J2270; J2405; J2543; J2704; J2710; J2765; J3010; J3370; J3411; J3480; J3490; J7030; J7040; J7120; P9045

== ENCOUNTER 2020-12-15 08:04 | Emergency (ER) | payer MEDICAID ==
[~2020-12-15] VITALS: Ht 157.5 cm; Wt 60.8 kg
[~2020-12-15 08:04] MED LIST changes: +AMOX500T2 PO; -DICY10CA88 PO; -LORA-269 PO; -OMEP20CA15 PO; +OMEP40CA13 PO; -ONDA4TAB6 PO; -ONDA8TAB13 PO; -OXYC-150 PO; -PANT-47 PO; -PANT20TA18 PO; -SUCR1ORA12 PO
[2020-12-15] MEDS ORDERED: oxyCODONE/APAP 10/325mg tablet PO ONE (09:30)
--- NOTE | 2020-12-15 10:03 | NUR ---
Colostomy bag changed. No signs of infection. Dr. Kurtz at bedside.
[2020-12-15] MEDS ORDERED: OXYC-145 PO (10:08)
[2020-12-15 10:17] VITALS: BP 143/106
== END 2020-12-15 10:19 | disposition home or self-care (01) ==
LOC: ER 08:06
DX: T85.848A Pain due to other internal prosthetic devices, implants and grafts, initial encounter (principal); R11.2 Nausea with vomiting, unspecified; I10 Essential (primary) hypertension; K21.9 Gastro-esophageal reflux disease without esophagitis; F32.9 Major depressive disorder, single episode, unspecified; F41.9 Anxiety disorder, unspecified; Z98.890 Other specified postprocedural states; Z72.89 Other problems related to lifestyle; Z79.899 Other long term (current) drug therapy; Y83.8 Other surgical procedures as the cause of abnormal reaction of the patient, or of later complication, without mention of misadventure at the time of the procedure; Y92.89 Other specified places as the place of occurrence of the external cause
CPT/HCPCS: 99283

== ENCOUNTER 2020-12-16 05:16 | Emergency (ER) | payer MEDICAID ==
[~2020-12-16] VITALS: Ht 157.5 cm; Wt 131.0 kg
[~2020-12-16 05:16] MED LIST changes: +OXYC-145 PO
[2020-12-16] MEDS ORDERED: oxyCODONE/APAP 10/325mg tablet PO ONE (05:30)
[2020-12-16 06:03] VITALS: BP 160/100
[2020-12-16] MEDS ORDERED: metoclopramide 10mg tablet PO ONE (07:10)
== END 2020-12-16 07:20 | disposition home or self-care (01) ==
LOC: ER 05:17
DX: R10.84 Generalized abdominal pain (principal); R11.10 Vomiting, unspecified; I10 Essential (primary) hypertension; K21.9 Gastro-esophageal reflux disease without esophagitis; F41.9 Anxiety disorder, unspecified; F32.9 Major depressive disorder, single episode, unspecified; Z87.01 Personal history of pneumonia (recurrent); Z85.41 Personal history of malignant neoplasm of cervix uteri; Z98.890 Other specified postprocedural states; Z72.89 Other problems related to lifestyle; Z79.2 Long term (current) use of antibiotics; Z79.899 Other long term (current) drug therapy
CPT/HCPCS: 99283; J8597

== ENCOUNTER 2021-01-04 08:27 | Emergency (ER) | payer MEDICAID ==
[~2021-01-04] VITALS: Ht 157.5 cm; Wt 58.8 kg
[~2021-01-04 08:27] MED LIST changes: -OMEP40CA13 PO; +OMEP40CA21 PO
[2021-01-04 08:57] LABS: CLARITY,URINE CLEAR (Clear); COLOR,URINE STRAW (Yellow); GLUCOSE, URINE NEGATIVE (Neg); KETONES,URINE NEGATIVE (Neg); LEUKOCYTE ESTERASE ,URINE NEGATIVE (Neg); NITRITES, URINE NEGATIVE (Neg); OCCULT BLOOD,URINE TRACE-INTACT (Neg); PH,URINE 6.5 (4.8-8.0); PROTEIN,URINE NEGATIVE (Neg); UROBILINOGEN,URINE 0.2 E.U/dL (0.2-1.0)
[2021-01-04 09:05] LABS: UA COLLECTION TYPE CLN CATCH MIDSTREAM
[2021-01-04 09:06] LABS: BACTERIA,URINE FEW /HPF (Neg); RBC,URINE 0-2 /HPF (0-2); SQUAMOUS EPITHELIAL CELL,UR MODERATE /LPF (FEW); WBC,URINE 0-4 /HPF (0-4)
[2021-01-04 10:08] LABS: BASOPHILS # (AUTO) 0.1 X10'3 (0-0.2); BASOPHILS % (AUTO) 0.7 % (0-1); EOSINOPHILS # (AUTO) 0.1 X10'3 (0-0.9); HEMATOCRIT 33.6 % (35.0-45.0); HEMOGLOBIN 11.2 g/dl (12.0-16.0); LYMPHOCYTES # (AUTO) 1.5 X10'3 (1.1-4.8); LYMPHOCYTES % (AUTO) 16.5 % (21-51); MEAN CORPUSCULAR HEMOGLOBIN 29.9 PG (27.0-31.0); MEAN CORPUSCULAR HGB CONC 33.3 g/dL (33.0-36.5); MEAN CORPUSCULAR VOLUME 89.9 FL (78-98); MEAN PLATELET VOLUME 6.4 FL (7.4-10.4); MONOCYTES # (AUTO) 1.1 X10'3 (0-0.9); MONOCYTES % (AUTO) 11.9 % (2-12); NEUTROPHILS # (AUTO) 6.3 X10'3 (1.8-7.7); NEUTROPHILS % (AUTO) 69.9 % (42-75); PLATELET COUNT 569 X10'3 (140-440); RED BLOOD COUNT 3.74 X10'6 (4.20-5.60); RED CELL DISTRIBUTION WIDTH 17.9 % (11.5-14.5)
[2021-01-04 10:22] LABS: ALANINE AMINOTRANSFERASE 18 U/L (12-78); ALBUMIN/GLOBULIN RATIO 0.6 (1.1-1.5); ALKALINE PHOSPHATASE 127 IU/L (46-116); ANION GAP 10 (8-16); ASPARTATE AMINO TRANSFERASE 15 U/L (10-37); BILIRUBIN,TOTAL 0.4 MG/DL (0.1-1.0); BLOOD UREA NITROGEN 7 MG/DL (7-18); BUN/CREATININE RATIO 13.5 (6.6-38.0); CALCIUM 9.1 MG/DL (8.5-10.1); CHLORIDE 104 MMOL/L (99-107); CREATININE 0.52 MG/DL (0.40-0.90); GLUCOSE 87 MG/DL (70-104); LIPASE 126 U/L (73-393); POTASSIUM 4.3 MMOL/L (3.5-5.1); SODIUM 136 MMOL/L (135-145); TOTAL CARBON DIOXIDE 22.4 MMOL/L (24-32); TOTAL PROTEIN 7.8 G/DL (6.4-8.2); eGFR > 90 ML/MIN
[2021-01-04 10:48] LABS: TOTAL CELLS COUNTED 100
[2021-01-04 10:49] VITALS: BP 109/77
[2021-01-04 10:49] LABS: ANISOCYTOSIS 1+; LARGE PLATELETS FEW; PLATELET ESTIMATE INCREASED
== END 2021-01-04 11:32 | disposition home or self-care (01) ==
LOC: ER 08:27
DX: S22.32XA Fracture of one rib, left side, initial encounter for closed fracture (principal); S32.16XA Type 3 fracture of sacrum, initial encounter for closed fracture; R10.84 Generalized abdominal pain; R11.0 Nausea; M79.10 Myalgia, unspecified site; I10 Essential (primary) hypertension; K21.9 Gastro-esophageal reflux disease without esophagitis; F41.9 Anxiety disorder, unspecified; F32.9 Major depressive disorder, single episode, unspecified; Z87.01 Personal history of pneumonia (recurrent); Z85.41 Personal history of malignant neoplasm of cervix uteri; Z98.890 Other specified postprocedural states; Z72.89 Other problems related to lifestyle; Z79.2 Long term (current) use of antibiotics; Z79.899 Other long term (current) drug therapy; X58.XXXA Exposure to other specified factors, initial encounter; Y93.89 Activity, other specified; Y92.89 Other specified places as the place of occurrence of the external cause; Y99.8 Other external cause status
CPT/HCPCS: 36415; 74176; 80053; 81001; 83690; 83735; 85007; 85025; 99284

== ENCOUNTER 2021-01-31 08:28 | Emergency (ER) | payer MEDICAID ==
[~2021-01-31] VITALS: Ht 157.5 cm; Wt 59.0 kg
[2021-01-31 08:34] VITALS: BP 165/110
== END 2021-01-31 10:06 | disposition home or self-care (01) ==
LOC: ER 08:29
DX: Z02.89 Encounter for other administrative examinations (principal); K63.1 Perforation of intestine (nontraumatic); I10 Essential (primary) hypertension; K21.9 Gastro-esophageal reflux disease without esophagitis; F41.9 Anxiety disorder, unspecified; F32.9 Major depressive disorder, single episode, unspecified; Z43.3 Encounter for attention to colostomy; Z87.01 Personal history of pneumonia (recurrent); Z85.41 Personal history of malignant neoplasm of cervix uteri; Z98.890 Other specified postprocedural states; Z72.89 Other problems related to lifestyle; Z79.2 Long term (current) use of antibiotics; Z79.899 Other long term (current) drug therapy
CPT/HCPCS: 99281

== ENCOUNTER 2021-02-15 08:25 | Emergency (ER) | payer MEDICAID ==
[~2021-02-15] VITALS: Ht 157.5 cm; Wt 62.7 kg
[2021-02-15 08:36] VITALS: BP 127/82
[2021-02-15] MEDS ORDERED: OMEP-50 PO (14:52)
[2021-02-15] MEDS ORDERED: SUCR1TAB PO (18:28)
[2021-02-15] MEDS ORDERED: HYDR-3686 PO (18:28)
[2021-02-16] MEDS ORDERED: GABA-534 PO (14:47)
[2021-02-16] MEDS ORDERED: OXYC-658 PO ×2 (14:47)
== END 2021-02-15 09:50 | disposition home or self-care (01) ==
LOC: ER 08:26
DX: Z43.3 Encounter for attention to colostomy (principal); I10 Essential (primary) hypertension; K21.9 Gastro-esophageal reflux disease without esophagitis; Z98.890 Other specified postprocedural states; Z79.899 Other long term (current) drug therapy
CPT/HCPCS: 99281

== ENCOUNTER 2021-02-15 10:48 | Inpatient (IN) | payer MEDICAID ==
[~2021-02-15] VITALS: Ht 154.9 cm; Wt 62.7 kg
[2021-02-15] MEDS ORDERED: oxyCODONE/APAP 10/325mg tablet PO ONE (13:35)
[2021-02-15 13:56] LABS: BASOPHILS % (AUTO) 0.6 % (0-1); EOSINOPHILS % (AUTO) 1.1 % (0-6); HEMATOCRIT 32.4 % (35.0-45.0); HEMOGLOBIN 10.4 g/dl (12.0-16.0); LYMPHOCYTES # (AUTO) 0.9 X10'3 (1.1-4.8); LYMPHOCYTES % (AUTO) 20.6 % (21-51); MEAN CORPUSCULAR HEMOGLOBIN 28.3 PG (27.0-31.0); MEAN CORPUSCULAR HGB CONC 32.2 g/dL (33.0-36.5); MONOCYTES # (AUTO) 0.4 X10'3 (0-0.9); MONOCYTES % (AUTO) 7.7 % (2-12); NEUTROPHILS # (AUTO) 3.2 X10'3 (1.8-7.7); PLATELET COUNT 395 X10'3 (140-440); RED BLOOD COUNT 3.68 X10'6 (4.20-5.60); RED CELL DISTRIBUTION WIDTH 16.6 % (11.5-14.5); WHITE BLOOD COUNT 4.6 X10'3 (4.5-11.0)
[2021-02-15 14:13] LABS: ALANINE AMINOTRANSFERASE 28 U/L (12-78); ALBUMIN 3.2 G/DL (3.4-5.0); ALBUMIN/GLOBULIN RATIO 0.7 (1.1-1.5); ALKALINE PHOSPHATASE 97 IU/L (46-116); ANION GAP 11 (8-16); ASPARTATE AMINO TRANSFERASE 26 U/L (10-37); BILIRUBIN,TOTAL 0.2 MG/DL (0.1-1.0); BLOOD UREA NITROGEN 10 MG/DL (7-18); CALCIUM 7.9 MG/DL (8.5-10.1); CHLORIDE 107 MMOL/L (99-107); GLUCOSE 100 MG/DL (70-104); POTASSIUM 3.7 MMOL/L (3.5-5.1); SODIUM 141 MMOL/L (135-145); TOTAL CARBON DIOXIDE 22.9 MMOL/L (24-32); TOTAL PROTEIN 7.5 G/DL (6.4-8.2); eGFR > 90 ML/MIN
[2021-02-15] MEDS ORDERED: fentaNYL/PF 50MCG/1 ML 2ML syringe IM ONE (14:20)
[2021-02-15] MEDS ORDERED: OMEP-50 PO (14:52)
--- NOTE | 2021-02-15 15:00 | NUR ---
Patient stated she had to use restroom. Vital signs checked and stable, patient denies dizziness. Patient escorted to end of room, steady on feet and denies dizziness. On return to room patient was fiddling with colostomy bag and had a fall. Denies pain/tenderness. Pranav VELA returned from lunch at this time and was at bedside after fall.
--- NOTE | 2021-02-15 15:00 | NUR ---
came back from lunch break ,pt had a fall while trying to fix her colostomy bag and fell ,pt stated she fell on rgt side denies any pain or denies nay tenderness.mi munroe rushed to the room as she was covering for me .
--- NOTE | 2021-02-15 15:24 | NUR ---
notified dr carrillo grewal about pt fall and sbar he event as per md don marroquin if hospitalist called us back or not.
--- NOTE | 2021-02-15 15:31 | NUR ---
pt has bed side commode available since pt is here in er ,but pt went to use restroom and had a fall,pt now in bed with call light within reach .bed in lowest position with side rail up and instructed the pt to call for call light if needed anything,pt verbalized understanding denies any concern or ques.
--- NOTE | 2021-02-15 15:48 | NUR ---
notified pavithra grewal regarding pt lft arm pain 8/10 burning sensation,verbal order for norco 5/325 mg po onces,will follow the orders.
[2021-02-15] MEDS ORDERED: HYDROcodone/acetaminophen 5mg/325mg tablet PO ONE (15:50)
[2021-02-15] MEDS ORDERED: morphine 4 MG/ML inj SYRINge IV ONE (16:50)
--- NOTE | 2021-02-15 16:50 | NUR ---
DR LUCAS ALEXIS AT BEDSIDE ORDER FOR PAIN MEDS ,MORPHINE 4 MG IV ONCE.
[2021-02-15] MEDS ORDERED: mag hydrox/Alum hydrox/simeth 30ml oral suspension PO PRN (16:55)
[2021-02-15] MEDS ORDERED: morphine 2 MG/ML inj. syringe IV PRN (16:55)
[2021-02-15] MEDS ORDERED: acetaminophen 325mg tablet PO PRN ×2 (16:55)
[2021-02-15] MEDS ORDERED: magnesium hydroxide 30ml (MOM) UD suspension PO PRN (16:55)
--- NOTE | 2021-02-15 16:55 | NUR ---
NOTIFIED DR ZAVALA THAT PT HAD A FALL AFTER THE FENTNYL INJ WHEN PT WENT TO USE RESTROOM ROOM AND CAME BACK TO ROOM TRYING TO FIX HER COLOSTOMY BAG AND FELL ON RGT SIDE ,DENIES ANY HEAD STRIKE ,OR RGT SIDE PAIN .EX AND PT IN THE ROOM WHILE INFORMING THE PROVIDER.
[2021-02-15] MEDS: normal saline 1000ml 1,000 ML IV SCH (17:37)
[2021-02-15] MEDS ORDERED: SUCR1TAB PO (18:28)
[2021-02-15] MEDS ORDERED: HYDR-3686 PO (18:28)
[2021-02-15] MEDS: HYDROcodone/acetaminophen 5mg/325mg tablet PO PRN (20:24)
[2021-02-15] MEDS: ondansetron/PF 4mg/2ml inj IV PRN (21:58)
[2021-02-15] MEDS: morphine 2 MG/ML inj. syringe IV PRN (23:59)
[2021-02-16 00:02] LABS: CLARITY,URINE CLEAR (Clear); COLOR,URINE YELLOW (Yellow); GLUCOSE, URINE NEGATIVE (Neg); KETONES,URINE NEGATIVE (Neg); LEUKOCYTE ESTERASE ,URINE NEGATIVE (Neg); NITRITES, URINE NEGATIVE (Neg); OCCULT BLOOD,URINE SMALL (Neg); PROTEIN,URINE NEGATIVE (Neg); UROBILINOGEN,URINE 0.2 E.U/dL (0.2-1.0)
[2021-02-16 00:15] LABS: UA COLLECTION TYPE URINAL
[2021-02-16 00:16] LABS: BACTERIA,URINE NONE SEEN /HPF (Neg); RBC,URINE 0-2 /HPF (0-2); SQUAMOUS EPITHELIAL CELL,UR FEW /LPF (FEW); WBC,URINE NONE SEEN /HPF (0-4)
[2021-02-16] MEDS: HYDROcodone/acetaminophen 5mg/325mg tablet PO PRN (01:32)
--- NOTE | 2021-02-16 01:45 | NUR ---
MIRIAN BUTCHER STATED SHE MEDICATED PT BUT SHE THREW UP THE MEDICATION . MEDICATION WAS SEEN
[2021-02-16] MEDS: HYDROcodone/acetaminophen 10/325mg tab PO PRN ×2 (02:43→07:49)
--- NOTE | 2021-02-16 02:47 | NUR ---
pt vomited after norco 5/325 administration at 0128. pill not seen in vomit bag however it was a cloudy white color per david VELA. Pain 05/07. gave pt norco 10/325. morphine and zofran not due yet
[2021-02-16] MEDS: normal saline 1000ml 1,000 ML IV SCH ×3 (03:18→22:55)
[2021-02-16] MEDS: ondansetron/PF 4mg/2ml inj IV PRN (03:30)
[2021-02-16 04:25] LABS: BASOPHILS % (AUTO) 0.3 % (0-1); EOSINOPHILS % (AUTO) 0.5 % (0-6); HEMATOCRIT 31.2 % (35.0-45.0); LYMPHOCYTES # (AUTO) 0.8 X10'3 (1.1-4.8); LYMPHOCYTES % (AUTO) 10.9 % (21-51); MEAN CORPUSCULAR HEMOGLOBIN 28.6 PG (27.0-31.0); MEAN CORPUSCULAR HGB CONC 32.2 g/dL (33.0-36.5); MEAN CORPUSCULAR VOLUME 88.9 FL (78-98); MEAN PLATELET VOLUME 6.2 FL (7.4-10.4); MONOCYTES # (AUTO) 0.7 X10'3 (0-0.9); MONOCYTES % (AUTO) 9.9 % (2-12); NEUTROPHILS # (AUTO) 5.5 X10'3 (1.8-7.7); NEUTROPHILS % (AUTO) 78.4 % (42-75); PLATELET COUNT 316 X10'3 (140-440); RED BLOOD COUNT 3.52 X10'6 (4.20-5.60); RED CELL DISTRIBUTION WIDTH 15.9 % (11.5-14.5)
[2021-02-16 04:31] LABS: ANION GAP 8 (8-16); BLOOD UREA NITROGEN 7 MG/DL (7-18); BUN/CREATININE RATIO 14.9 (6.6-38.0); CALCIUM 7.6 MG/DL (8.5-10.1); CHLORIDE 106 MMOL/L (99-107); CREATININE 0.47 MG/DL (0.40-0.90); GLUCOSE 85 MG/DL (70-104); POTASSIUM 3.4 MMOL/L (3.5-5.1); SODIUM 139 MMOL/L (135-145); TOTAL CARBON DIOXIDE 25.2 MMOL/L (24-32); eGFR > 90 ML/MIN
[2021-02-16] MEDS: morphine 2 MG/ML inj. syringe IV PRN ×4 (05:48→22:25)
[2021-02-16] MEDS: pantoprazole 40mg Tablet.DR PO SCH (07:27)
--- NOTE | 2021-02-16 07:37 | NUR ---
Received report from Regina in ER. Pt. will be transferred to floor shortly on a bed. No tele ordered for admit.
[2021-02-16 08:00] VITALS: BP 164/100
[2021-02-16 10:00] VITALS: BP 144/88
--- NOTE | 2021-02-16 11:14 | NUR ---
PAGER ID: [phone] MESSAGE: Zeina Giron in [id number] c/o "not being able to feel her pinky since coming from ER. ok cap refill. c/o unresolved pain in r hand. [place] and MS already given. she states Percocet 10 more effective for her. Martha [phone]
[2021-02-16] MEDS ORDERED: potassium Cl 40MEQ/1/2NS 520ml 520 ML IV PRN (11:35)
[2021-02-16] MEDS ORDERED: oxyCODONE IR 5mg (immed. release) tablet PO PRN (11:35)
[2021-02-16] MEDS ORDERED: potassium Cl 20 mEq SR tablet PO PRN (11:35)
[2021-02-16] MEDS: oxyCODONE IR 5mg (immed. release) tablet PO PRN ×2 (11:49→19:33)
--- NOTE | 2021-02-16 12:26 | NUR ---
COLOSTOMY BAG CHANGED PER PT REQUEST
[2021-02-16] MEDS: gabapentin 300mg capsule PO SCH ×2 (13:20→16:10)
[2021-02-16 13:59] LABS: PRE OP PROTIME 10.1 SECONDS (9.0-12.0)
--- NOTE | 2021-02-16 14:22 | NUR ---
PAGER ID: [phone] MESSAGE: Zeina Giron 1621 Rapid positive for COVID. Martha [phone] databases software consultant aware.
[2021-02-16] MEDS ORDERED: OXYC-658 PO ×2 (14:47)
[2021-02-16] MEDS ORDERED: GABA-534 PO (14:47)
--- NOTE | 2021-02-16 15:09 | NUR ---
PAGER ID: [phone] MESSAGE: Zeina Giron [id number] is discharged from ortho, however pt. is clumsy and fell - that is how she broke her wrist. PT eval? Also pt. is in excruciating pt. r/t wrist fx. If you send her home on narcotics increased risk for fall. Martha [phone]
--- NOTE | 2021-02-16 15:55 | NUR ---
Attempting to treat pt's pain but no PPE available. Paged RT. Immediate response and they are bring up PPE.
--- NOTE | 2021-02-16 16:00 | NUR ---
Neftali VASQUEZ, OR gregorio, and Wendie aware pt. has tested positive for covid. [facility] RN and infection control also aware. Infection control would like to do another test to test for deviant strain of COVID. COVID vaccination from Barb San received from [facility]. Pt. has had the one time dose of Brayden and Brayden 10/07/20. Record in chart. Pt. transferred to isolation room and made aware. Surgery canceled for today per Wendie/Neftali. Plans to DC tomorrow after PT eval, have pt. isolate for 10 days at home and have her return to have surgery on her wrist afterwards.
[2021-02-16 18:00] VITALS: BP 165/94
--- NOTE | 2021-02-16 18:45 | NUR ---
Patient in room ORTHO 4018. I have received report from Martha VELA and had the opportunity to ask questions and assume patient care.
--- NOTE | 2021-02-16 18:49 | NUR ---
Gave report to Lavern VELA.
[2021-02-16] MEDS: K and/or MAG REPLACEMENT MC SCH (19:10)
--- NOTE | 2021-02-16 20:00 | NUR ---
Pt. tearful states she feels isolated. Sympathized with pt. and explained reasoning for isolation status. Pt receptive to information. Informed pt. on her plan of care going forward. She understands that she will have to isolate at home then return for treatment of her wrist fx. after 10 days. Pt requesting to speak with the doctor for more clarification and address what pain medication she will be given to go home on. I will pass this onto the Day RN tomorrow in report.
[2021-02-16 22:00] VITALS: BP 154/97
[2021-02-17] MEDS: gabapentin 300mg capsule PO SCH ×3 (00:31→16:20)
[2021-02-17] MEDS: oxyCODONE IR 5mg (immed. release) tablet PO PRN ×3 (00:31→16:30)
[2021-02-17] MEDS: morphine 2 MG/ML inj. syringe IV PRN ×2 (04:59→11:27)
--- NOTE | 2021-02-17 06:12 | NUR ---
Problems reprioritized. Patient report given, questions answered & plan of care reviewed with Alvaro VELA.
[2021-02-17 06:13] LABS: BASOPHILS % (AUTO) 0.3 % (0-1); EOSINOPHILS # (AUTO) 0.1 X10'3 (0-0.9); EOSINOPHILS % (AUTO) 1.3 % (0-6); HEMATOCRIT 29.8 % (35.0-45.0); HEMOGLOBIN 9.5 g/dl (12.0-16.0); LYMPHOCYTES # (AUTO) 0.7 X10'3 (1.1-4.8); LYMPHOCYTES % (AUTO) 15.3 % (21-51); MEAN CORPUSCULAR HGB CONC 31.7 g/dL (33.0-36.5); MEAN CORPUSCULAR VOLUME 88.3 FL (78-98); MEAN PLATELET VOLUME 6.4 FL (7.4-10.4); MONOCYTES # (AUTO) 0.4 X10'3 (0-0.9); NEUTROPHILS # (AUTO) 3.3 X10'3 (1.8-7.7); NEUTROPHILS % (AUTO) 73.1 % (42-75); PLATELET COUNT 308 X10'3 (140-440); RED BLOOD COUNT 3.37 X10'6 (4.20-5.60); RED CELL DISTRIBUTION WIDTH 16.4 % (11.5-14.5); WHITE BLOOD COUNT 4.5 X10'3 (4.5-11.0)
[2021-02-17 06:18] LABS: ALBUMIN 2.5 G/DL (3.4-5.0); ANION GAP 10 (8-16); BLOOD UREA NITROGEN 4 MG/DL (7-18); CALCIUM 6.8 MG/DL (8.5-10.1); CHLORIDE 105 MMOL/L (99-107); CREATININE 0.57 MG/DL (0.40-0.90); GLUCOSE 73 MG/DL (70-104); SODIUM 139 MMOL/L (135-145); TOTAL CARBON DIOXIDE 24.1 MMOL/L (24-32); eGFR > 90 ML/MIN
[2021-02-17 06:24] LABS: POTASSIUM 2.6 MMOL/L (3.5-5.1)
[2021-02-17 06:25] VITALS: BP 142/86
[2021-02-17] MEDS: potassium Cl 20 mEq SR tablet PO PRN ×2 (06:38→12:09)
[2021-02-17] MEDS: K and/or MAG REPLACEMENT MC SCH (06:38)
[2021-02-17] MEDS: pantoprazole 40mg Tablet.DR PO SCH (07:00)
[2021-02-17] MEDS ORDERED: potassium Cl 20 mEq SR tablet PO STA (07:19)
[2021-02-17] MEDS: normal saline 1000ml 1,000 ML IV SCH (08:55)
--- NOTE | 2021-02-17 15:50 | NUR ---
PAGER ID: [phone] MESSAGE: Tina [phone] - re [phone] Bree Modi is now 4.7. Ok to DC?
[2021-02-17] MEDS ORDERED: OXYC-658 PO ×2 (18:13→18:23)
--- NOTE | 2021-02-17 18:31 | NUR ---
PAGER ID: [phone] MESSAGE: Tina [phone] - tamara Giron [phone] Alexandra Pressley unable to send narcotic Rx to pharmacy. Can you please send?
[2021-02-18] MEDS ORDERED: OXYC-145 PO (12:03)
[2021-02-18] MEDS ORDERED: GABA300C PO (12:03)
== END 2021-02-17 18:25 | disposition home or self-care (01) | DRG 342 ==
LOC: ER 10:48 → ED HOLD 16:55 → ORTHO 4S 02-16 08:00
PROVIDERS: ADMIT Internal Medicine; ATTEND Internal Medicine
DX: S52.602A Unspecified fracture of lower end of left ulna, initial encounter for closed fracture (principal); U07.1 COVID-19; I10 Essential (primary) hypertension; K21.9 Gastro-esophageal reflux disease without esophagitis; W18.39XA Other fall on same level, initial encounter; Z85.41 Personal history of malignant neoplasm of cervix uteri; Z93.3 Colostomy status; Y93.89 Activity, other specified; Y92.89 Other specified places as the place of occurrence of the external cause; Y99.8 Other external cause status
CPT/HCPCS: 36415; 71045; 73110; 80048; 80053; 81001; 81003; 84132; 85025; 85610; 85730; 87081; 87635; 93005; 96374; 96376; 97110; 97161; 97530; 99285; G0378; J2270; J2405; J3010; J3480; J7030

== ENCOUNTER 2021-02-18 11:40 | Emergency (ER) | payer MEDICAID ==
[~2021-02-18] VITALS: Ht 157.5 cm; Wt 59.5 kg
[~2021-02-18 11:40] MED LIST changes: -AMOX500T2 PO; +GABA-534 PO; -GABA300C PO; +HYDR-3686 PO; +OMEP-50 PO; -OMEP40CA21 PO; -OXYC-145 PO; +SUCR1TAB PO
[2021-02-18 11:49] VITALS: BP 118/82
[2021-02-18] MEDS ORDERED: GABA300C PO (12:03)
[2021-02-18] MEDS ORDERED: OXYC-145 PO (12:03)
[2021-02-18] MEDS ORDERED: oxyCODONE/APAP 10/325mg tablet PO ONE (12:05)
--- NOTE | 2021-02-18 12:29 | NUR ---
Went into treat and discharge patient. Spoke with patient regarding prescriptions and discussed with patient regarding safe ride home. Patient stated that she would be walking and taking the bus. I stated to her that because she is walking I'm not able to give a narcotic, but asked if she had anyone to pick her up. She denies any became aggitated and raising her voice. Patient began to complain regarding her discharge from [facility] a few days ago and how long she had been out of pain medication. I explained to her that I could ask the PA if there was anything else I could get her for pain and she continue to shout and raise her voice with any reply. I stood up and left the room. I then spoke with Jose GAITAN regarding this interaction and that asked if he felt comfortable giving her percocet. He stated that he did not feel she was opiate rhoda and that she would be find getting a dose prior to leaving ER. I pulled out the percocet and went into T2 to administer medication explaining SE. I began to explain discharge instructions and then asked if she had any further questions regarding instructions. She continued to complain about care and how unprofessional I was. I stated to her that I did not understand why she was being so rude to me. She proceeded to tell me that in my line of work I should be used to getting yelled at and I then told her that this was not part of my job. She then told me, "well its pretty weird that your still talking to me about this". I said, "well ok then and registration will be in shorting to come update information in your chart and after that you can leave out the door behind you." I asked registration to update patients address in the chart and then let patient know she can leave when finished.
--- NOTE | 2021-02-18 12:58 | NUR ---
Patient seen and assessed by provider.
== END 2021-02-18 12:59 | disposition home or self-care (01) ==
LOC: ER 11:40
DX: S52.512A Displaced fracture of left radial styloid process, initial encounter for closed fracture (principal); I10 Essential (primary) hypertension; K21.9 Gastro-esophageal reflux disease without esophagitis; F41.9 Anxiety disorder, unspecified; F32.9 Major depressive disorder, single episode, unspecified; Z87.01 Personal history of pneumonia (recurrent); Z85.41 Personal history of malignant neoplasm of cervix uteri; Z98.890 Other specified postprocedural states; Z72.89 Other problems related to lifestyle; Z59.0 Homelessness; Z79.899 Other long term (current) drug therapy; W19.XXXA Unspecified fall, initial encounter; Y93.89 Activity, other specified; Y92.89 Other specified places as the place of occurrence of the external cause; Y99.8 Other external cause status
CPT/HCPCS: 99283

== ENCOUNTER 2021-02-23 13:45 | Emergency (ER) | payer MEDICAID ==
[~2021-02-23] VITALS: Ht 157.5 cm; Wt 60.8 kg
[~2021-02-23 13:45] MED LIST changes: +GABA300C PO; +OXYC-145 PO
[2021-02-23 14:00] VITALS: BP 104/74
== END 2021-02-23 19:31 | disposition left against medical advice (07) ==
LOC: ER 13:46
DX: R42 Dizziness and giddiness (principal); Z53.21 Procedure and treatment not carried out due to patient leaving prior to being seen by health care provider
CPT/HCPCS: 93005

== ENCOUNTER 2021-02-27 08:25 | Emergency (ER) | payer MEDICAID ==
[~2021-02-27] VITALS: Ht 157.5 cm; Wt 60.0 kg
[2021-02-27 08:35] VITALS: BP 153/92
== END 2021-02-27 09:38 | disposition home or self-care (01) ==
LOC: ER 08:26
DX: Z43.3 Encounter for attention to colostomy (principal); I10 Essential (primary) hypertension; K21.9 Gastro-esophageal reflux disease without esophagitis; Z98.890 Other specified postprocedural states; Z59.0 Homelessness
CPT/HCPCS: 99281

== ENCOUNTER 2021-03-01 08:15 | Inpatient (IN) | payer MEDICARE, MEDICAID ==
[~2021-03-01] VITALS: Ht 157.5 cm; Wt 66.4 kg
[~2021-03-01 08:15] MED LIST changes: -GABA-534 PO; -GABA300C PO; -OXYC-145 PO; -SUCR1TAB PO
[2021-03-06 13:15] LABS: CLARITY,URINE CLEAR (Clear); COLOR,URINE YELLOW (Yellow); GLUCOSE, URINE NEGATIVE (Neg); KETONES,URINE NEGATIVE (Neg); LEUKOCYTE ESTERASE ,URINE NEGATIVE (Neg); NITRITES, URINE NEGATIVE (Neg); OCCULT BLOOD,URINE MODERATE (Neg); PROTEIN,URINE NEGATIVE (Neg); UROBILINOGEN,URINE 0.2 E.U/dL (0.2-1.0)
[2021-03-06 13:18] LABS: BASOPHILS % (AUTO) 0.3 % (0-1); EOSINOPHILS % (AUTO) 0.3 % (0-6); MEAN CORPUSCULAR VOLUME 87.8 FL (78-98)
[2021-03-06 13:19] LABS: LYMPHOCYTES # (AUTO) 1.2 X10'3 (1.1-4.8); LYMPHOCYTES % (AUTO) 17.3 % (21-51); MEAN CORPUSCULAR HGB CONC 33.1 g/dL (33.0-36.5); MEAN PLATELET VOLUME 6.9 FL (7.4-10.4); MONOCYTES # (AUTO) 0.7 X10'3 (0-0.9); MONOCYTES % (AUTO) 10.4 % (2-12); NEUTROPHILS # (AUTO) 4.8 X10'3 (1.8-7.7); NEUTROPHILS % (AUTO) 71.7 % (42-75); PRE OP HEMATOCRIT 33.4 % (35.0-45.0); PRE OP HEMOGLOBIN 11.1 g/dL (12.0-16.0); PRE OP PLATELET COUNT 321 X10'3 (140-440); RED BLOOD COUNT 3.81 X10'6 (4.20-5.60); RED CELL DISTRIBUTION WIDTH 17.5 % (11.5-14.5)
[2021-03-06 13:26] LABS: PRE OP INR 0.9 INR; PRE OP PROTIME 9.8 SECONDS (9.0-12.0)
[2021-03-06 13:37] LABS: UA COLLECTION TYPE CLN CATCH MIDSTREAM
[2021-03-06 13:39] LABS: SQUAMOUS EPITHELIAL CELL,UR FEW /LPF (FEW)
[2021-03-06 13:41] LABS: BACTERIA,URINE FEW /HPF (Neg); WBC,URINE 0-4 /HPF (0-4)
[2021-03-06 14:16] LABS: ALBUMIN 3.5 G/DL (3.4-5.0); ALBUMIN/GLOBULIN RATIO 0.9 (1.1-1.5); ALKALINE PHOSPHATASE 113 IU/L (46-116); BLOOD UREA NITROGEN 13 MG/DL (7-18); BUN/CREATININE RATIO 18.6 (6.6-38.0); CHLORIDE 90 MMOL/L (99-107); PRE OP ALT 21 U/L (30-65); PRE OP ANION GAP 8 (8-16); PRE OP AST 23 U/L (10-37); PRE OP BILIRUB, TOTAL 0.3 MG/DL (0.0-1.0); PRE OP GLUCOSE 106 MG/DL (70-104); PRE OP SODIUM 131 MMOL/L (135-145); TOTAL CARBON DIOXIDE 32.7 MMOL/L (24-32); TOTAL PROTEIN 7.6 G/DL (6.4-8.2); eGFR 86 ML/MIN
[2021-03-06 14:17] LABS: PRE OP POTASSIUM 2.7 MMOL/L (3.4-5.1)
[2021-03-08] VITALS (24 sets, daily range): BP systolic 118–150; BP diastolic 67–99
[2021-03-08] MEDS ORDERED: ringers solution, lacted 1,000 ML IV SCH (05:00)
[2021-03-08] MEDS ORDERED: famotidine 20mg tablet PO ONE (05:30)
[2021-03-08] MEDS ORDERED: ceFOXitin 2GM-NS 100mL ADDvant 100 ML IV ONE (05:30)
[2021-03-08 08:05] LABS: ISTAT CREATININE 0.9 mg/dL (0.6-1.1); ISTAT HGB 12.2 g/dl (12.0-16.0); ISTAT IONIZED CALCIUM 1.13 mmol/L (1.03-1.32); ISTAT K 4.6 mmol/L (3.5-5.1); POC BUN/CREATININE RATIO 8.9 (6.6-38.0)
--- NOTE | 2021-03-08 08:29 | NUR ---
ASSESSMENT COMPLETED PT STATES DOES NOT FEEL COMFORTABLE GOING HOME AFTER SURGERY STATING SHE IS HOMELESS AND HAS NO ONE TO TAKE CARE OF HER. Addendum: 03/08/21 at 0832 by Delia Norton RN Amended: Links added.
[2021-03-08] MEDS ORDERED: morphine 2 MG/ML inj. syringe IV PRN (10:25)
[2021-03-08] MEDS ORDERED: morphine 4 MG/ML inj SYRINge ONE (10:28)
[2021-03-08] MEDS ORDERED: BUPIVACAINE liposomal/PF 13.3 MG/ML vial IM ONE (13:10)
[2021-03-08] MEDS ORDERED: BUPIVAcaine/PF 2.5mg/ml (0.25%) 10ml vial ONE (13:10)
[2021-03-08] MEDS ORDERED: midazolam 1 mg/ML 2ml injection ONE (13:11)
[2021-03-08] MEDS ORDERED: fentaNYL /PF 50mcg/ml 5ml ampule ONE (13:12)
[2021-03-08] MEDS ORDERED: sevoflurane 250ml liquid IH ONE (13:24)
[2021-03-08] MEDS ORDERED: naloxone 0.4 mg/ml inj IV PRN (13:25)
[2021-03-08] MEDS ORDERED: HYDROcodone/acetaminophen 10/325mg tab PO PRN (13:25)
[2021-03-08] MEDS ORDERED: HYDROcodone/acetaminophen 5mg/325mg tablet PO PRN (13:25)
[2021-03-08] MEDS: potassium CL 20mEq in D5-1/2NS 1,000 ML IV SCH ×2 (13:25→21:08)
[2021-03-08] MEDS ORDERED: neostigmine methylsulfate 1 MG/ML 10ml vial ONE (14:47)
[2021-03-08] MEDS ORDERED: glycopyrrolate 0.2mg/ml inj ONE (14:47)
[2021-03-08] MEDS ORDERED: propofol inj 20 ML IV ONE (14:47)
[2021-03-08] MEDS ORDERED: ePHEDrine 50MG/ML INJ. ONE (14:47)
[2021-03-08] MEDS ORDERED: dexamethasone sod phosphate 4mg/ml inj. ONE (14:47)
[2021-03-08] MEDS ORDERED: ondansetron/PF 4mg/2ml inj ONE (14:47)
[2021-03-08] MEDS ORDERED: LIDOcaine 1%/PF 5ML 10 MG/ML VIAL ONE (14:47)
[2021-03-08] MEDS ORDERED: acetaminophen 1,000mg/100ml IV 100 ML IV ONE (14:47)
[2021-03-08] MEDS ORDERED: rocuronium 10mg/ml inj IV ONE (14:47)
[2021-03-08] MEDS: HYDROmorph./NS 0.2 mg/ml CADD 100 ML IV SCH ×6 (15:00→23:00)
--- NOTE | 2021-03-08 15:59 | NUR ---
Received from OR via BED, accompanied by Anesthesiologist DR TEJADA and report given by Anesthesiologist. PT DROWSY, DENIES PAIN, ABDOMEN W/ABD PADS COVERED W/MEDIPORE TAPE CDI, BROWNE CATHETER TO GRAVITY DRAINAGE, PINK IN COLOR. LEFT ARM W/CAST FROM PREVIOUS INJURY. Addendum: 03/08/21 at 1631 by Tatum Bautista RN Amended: Links added.
[2021-03-08] MEDS ORDERED: ceFOXitin 1 GM/D5W 50mL IVPB 50 ML IV SCH (16:00)
[2021-03-08] MEDS: ceFOXitin inj 1,000 MG in normal saline 100ml IV soln 100 ML IV SCH ×2 (16:00→23:16)
[2021-03-08] MEDS: morphine 4 MG/ML inj SYRINge IV PRN ×2 (16:14→17:06)
--- NOTE | 2021-03-08 17:45 | NUR ---
Received pt from recovery via bed. VSS. Dil cadd present pt demonstrates appropriate use.
--- NOTE | 2021-03-08 17:49 | NUR ---
Report called to receiving nurse. Transferred via BED, CELL PHONE W/CELERY TIER,EARPHONES, GLASSES AND 1 BAG W/BACKPACK Belongings SENT W/PT TO ROOM 346B. PT TOLERATING ORAL FLUIDS, PAIN IMPROVED W/SIMONE RAMSEY, SILVIO, CALL LIGHT GIVEN, SIDE RAILS UP X 2, RECEIVING RN AT BEDSIDE TO RECEIVE PT. Special Issues communicated to receiving nurse. YES. Addendum: 03/08/21 at 1800 by Tatum Bautista RN Amended: Links added.
--- NOTE | 2021-03-08 18:46 | NUR ---
Problems reprioritized. Patient report given, questions answered & plan of care reviewed with MIRIAN Dietrich.
[2021-03-08] MEDS: sennosides/docusate sodium tablet PO SCH (19:54)
[2021-03-08] MEDS: ondansetron/PF 4mg/2ml inj IV PRN (23:16)
[2021-03-09] VITALS: BP 131/79
[2021-03-09] MEDS: HYDROmorph./NS 0.2 mg/ml CADD 100 ML IV SCH ×11 (01:00→23:00)
[2021-03-09] MEDS: potassium CL 20mEq in D5-1/2NS 1,000 ML IV SCH ×2 (04:29→12:58)
[2021-03-09 06:08] LABS: BASOPHILS % (AUTO) 0.1 % (0-1); EOSINOPHILS % (AUTO) 0 % (0-6); HEMATOCRIT 32.4 % (35.0-45.0); HEMOGLOBIN 10.3 g/dl (12.0-16.0); LYMPHOCYTES # (AUTO) 0.5 X10'3 (1.1-4.8); LYMPHOCYTES % (AUTO) 2.9 % (21-51); MEAN CORPUSCULAR HEMOGLOBIN 28.4 PG (27.0-31.0); MEAN CORPUSCULAR HGB CONC 31.8 g/dL (33.0-36.5); MEAN CORPUSCULAR VOLUME 89.2 FL (78-98); MEAN PLATELET VOLUME 6.9 FL (7.4-10.4); MONOCYTES # (AUTO) 1.2 X10'3 (0-0.9); MONOCYTES % (AUTO) 6.5 % (2-12); NEUTROPHILS # (AUTO) 16.2 X10'3 (1.8-7.7); NEUTROPHILS % (AUTO) 90.5 % (42-75); PLATELET COUNT 276 X10'3 (140-440); RED BLOOD COUNT 3.63 X10'6 (4.20-5.60); WHITE BLOOD COUNT 17.9 X10'3 (4.5-11.0)
--- NOTE | 2021-03-09 06:30 | NUR ---
Patient in room [facility] 346. I have received report from Karlo VELA and had the opportunity to ask questions and assume patient care.
[2021-03-09 06:33] LABS: ALBUMIN 2.4 G/DL (3.4-5.0); ANION GAP 8 (8-16); BLOOD UREA NITROGEN 8 MG/DL (7-18); BUN/CREATININE RATIO 10.4 (6.6-38.0); CHLORIDE 98 MMOL/L (99-107); CREATININE 0.77 MG/DL (0.40-0.90); GLUCOSE 188 MG/DL (70-104); POTASSIUM 4.5 MMOL/L (3.5-5.1); SODIUM 130 MMOL/L (135-145); eGFR 77 ML/MIN
[2021-03-09 07:30] VITALS: BP 129/91
[2021-03-09] MEDS: pantoprazole 40mg Tablet.DR PO SCH (09:13)
[2021-03-09] MEDS: sennosides/docusate sodium tablet PO SCH ×2 (09:14→20:06)
[2021-03-09] MEDS: hydrOXYzine 25 MG tablet PO PRN (09:17)
[2021-03-09 13:22] VITALS: BP 112/76
[2021-03-09 18:00] VITALS: BP 121/76
--- NOTE | 2021-03-09 19:08 | NUR ---
Problems reprioritized. Patient report given, questions answered & plan of care reviewed with Emely RN and Russell VELA.
--- NOTE | 2021-03-09 19:40 | NUR ---
Patient in room [facility] 346. I have received report from Noman VELA and had the opportunity to ask questions and assume patient care.
--- NOTE | 2021-03-09 19:50 | NUR ---
Patient in room [facility] 346. I have received report from KIMBERLY VELA and had the opportunity to ask questions and assume patient care.
[2021-03-10] VITALS: BP 129/76
[2021-03-10] MEDS: HYDROmorph./NS 0.2 mg/ml CADD 100 ML IV SCH ×8 (01:00→13:00)
[2021-03-10] MEDS: potassium CL 20mEq in D5-1/2NS 1,000 ML IV SCH (06:01)
--- NOTE | 2021-03-10 06:38 | NUR ---
Problems reprioritized. Patient report given, questions answered & plan of care reviewed with Martha VELA.
[2021-03-10 07:14] VITALS: BP 116/80
[2021-03-10] MEDS: pantoprazole 40mg Tablet.DR PO SCH (08:01)
[2021-03-10] MEDS: sennosides/docusate sodium tablet PO SCH ×2 (08:01→20:12)
[2021-03-10] MEDS: hydrOXYzine 25 MG tablet PO PRN (08:01)
--- NOTE | 2021-03-10 08:01 | NUR ---
Primary RN Martha was wanting to bolus pain medication for patient due to patients pain being 7/10 Per protocol. I went into room to speak with patient and she stated she had just woken up. I discussed pain with patient and that maybe she should press her pain button every 10 min to catch up on pain relief and we can reassess in approx 30 min to see if that helped. Patient in agreement with pain relief plan.
[2021-03-10] MEDS: CADD PCA waste documentation MC PRN ×2 (09:33→17:12)
--- NOTE | 2021-03-10 10:00 | NUR ---
Unable to place PIV using ultrasound x 3 attempts. Lucita Hargrove sup. called and to attempt IV. Addendum: 03/13/21 at 1635 by Alexandra Iyer RN Amended: Links added.
[2021-03-10] MEDS: ondansetron/PF 4mg/2ml inj IV PRN (13:09)
[2021-03-10 13:51] LABS: BASOPHILS % (AUTO) 0.1 % (0-1); EOSINOPHILS % (AUTO) 0.2 % (0-6); HEMATOCRIT 29.2 % (35.0-45.0); HEMOGLOBIN 9.6 g/dl (12.0-16.0); LYMPHOCYTES # (AUTO) 0.5 X10'3 (1.1-4.8); LYMPHOCYTES % (AUTO) 3.7 % (21-51); MEAN CORPUSCULAR HGB CONC 32.9 g/dL (33.0-36.5); MEAN CORPUSCULAR VOLUME 88.4 FL (78-98); MEAN PLATELET VOLUME 6.8 FL (7.4-10.4); MONOCYTES # (AUTO) 1.1 X10'3 (0-0.9); MONOCYTES % (AUTO) 8.7 % (2-12); NEUTROPHILS # (AUTO) 11.2 X10'3 (1.8-7.7); NEUTROPHILS % (AUTO) 87.3 % (42-75); PLATELET COUNT 285 X10'3 (140-440); RED CELL DISTRIBUTION WIDTH 17.8 % (11.5-14.5); WHITE BLOOD COUNT 12.8 X10'3 (4.5-11.0)
[2021-03-10 13:59] LABS: ALANINE AMINOTRANSFERASE 20 U/L (12-78); ALBUMIN 2.2 G/DL (3.4-5.0); ALBUMIN/GLOBULIN RATIO 0.6 (1.1-1.5); ALKALINE PHOSPHATASE 98 IU/L (46-116); ANION GAP 4 (8-16); ASPARTATE AMINO TRANSFERASE 17 U/L (10-37); BILIRUBIN,TOTAL 0.7 MG/DL (0.1-1.0); BLOOD UREA NITROGEN 6 MG/DL (7-18); BUN/CREATININE RATIO 10.7 (6.6-38.0); CALCIUM 7.8 MG/DL (8.5-10.1); CHLORIDE 99 MMOL/L (99-107); CREATININE 0.56 MG/DL (0.40-0.90); GLUCOSE 135 MG/DL (70-104); POTASSIUM 4.3 MMOL/L (3.5-5.1); SODIUM 130 MMOL/L (135-145); TOTAL CARBON DIOXIDE 26.9 MMOL/L (24-32); TOTAL PROTEIN 5.8 G/DL (6.4-8.2); eGFR > 90 ML/MIN
[2021-03-10] MEDS: normal saline 1000ml 1,000 ML IV SCH (14:52)
--- NOTE | 2021-03-10 17:13 | NUR ---
MIDLINE PLACED IN MICHEAL BY PICC RN. CONSENT SIGNED BY PT. AND PLACED IN CHART FOR SHAHIDA TO SIGN.
[2021-03-10] MEDS: oxyCODONE/APAP 10/325mg tablet PO PRN ×2 (17:22→21:06)
--- NOTE | 2021-03-10 18:37 | NUR ---
Gave report to Ortho neuro RN Keturah. Keturah concerned that pt has not had a BM since before surgery. Pt is going to 4009c.
[2021-03-10 19:00] VITALS: BP 131/84
--- NOTE | 2021-03-10 20:13 | NUR ---
ADMINISTERED SENOKOT TO PATIENT BY USING ADMINISTRATION BUTTON. THIS IS THE 3RD COMPUTER I HAVE BEEN ON THIS EVENING THAT WILL NOT WORK. ADMINSTERED AND TOLERATED WELL. PATIENT DID STATE SHE JUST HAD A SMALL BM TONIGHT.
[2021-03-10 22:00] VITALS: BP 142/96
[2021-03-11] VITALS (15 sets, daily range): BP systolic 108–152; BP diastolic 67–100
[2021-03-11] MEDS: oxyCODONE/APAP 10/325mg tablet PO PRN ×5 (01:27→22:58)
[2021-03-11 05:52] LABS: BASOPHILS % (AUTO) 0.1 % (0-1); EOSINOPHILS # (AUTO) 0.1 X10'3 (0-0.9); EOSINOPHILS % (AUTO) 0.8 % (0-6); HEMATOCRIT 26.3 % (35.0-45.0); HEMOGLOBIN 8.6 g/dl (12.0-16.0); LYMPHOCYTES # (AUTO) 0.5 X10'3 (1.1-4.8); LYMPHOCYTES % (AUTO) 4.4 % (21-51); MEAN CORPUSCULAR HEMOGLOBIN 29.2 PG (27.0-31.0); MEAN CORPUSCULAR HGB CONC 32.7 g/dL (33.0-36.5); MEAN CORPUSCULAR VOLUME 89.2 FL (78-98); MEAN PLATELET VOLUME 7.2 FL (7.4-10.4); MONOCYTES # (AUTO) 1.1 X10'3 (0-0.9); MONOCYTES % (AUTO) 10.3 % (2-12); NEUTROPHILS # (AUTO) 9.1 X10'3 (1.8-7.7); NEUTROPHILS % (AUTO) 84.4 % (42-75); PLATELET COUNT 283 X10'3 (140-440); RED BLOOD COUNT 2.95 X10'6 (4.20-5.60); RED CELL DISTRIBUTION WIDTH 17.2 % (11.5-14.5); WHITE BLOOD COUNT 10.7 X10'3 (4.5-11.0)
--- NOTE | 2021-03-11 05:54 | NUR ---
0500: ABDOMINAL DRSNG CHANGE COMPLETED WET TO DRY WITH STERILE WATER AND FLUFFS. USED LIDOCAINE INTO THE INCISION TO HELP WITH THE DISCOMFORT. TOLERATED WELL AND MEDICATED WITH PERCOCET WHEN DUE AFTER THE DRSNG CHANGE. HAS BEEN NPO SINCE MIDNIGHT AND STATED IS ANXIOUS TO GET THIS SURGERY OVER WITH. PATIENT STATED SMALL BM LAST NIGHT REPORT TO SATINDER VELA. Addendum: 03/11/21 at 0620 by Keturah Hollis RN VERBAL REPORT AT CHANGE OF SHIFT GIVEN TO CLAUDIO VELA
[2021-03-11] MEDS ORDERED: BUPIVAcaine/PF 2.5mg/ml (0.25%) 10ml vial ONE (07:03)
[2021-03-11] MEDS ORDERED: bacitracin 15gm ointment TP ONE (07:03)
--- NOTE | 2021-03-11 07:54 | NUR ---
attempt to call recovery to give report. No answer. Will try later
[2021-03-11] MEDS: sennosides/docusate sodium tablet PO SCH ×2 (08:00→20:00)
[2021-03-11] MEDS: pantoprazole 40mg Tablet.DR PO SCH (08:00)
[2021-03-11] MEDS ORDERED: fentaNYL/PF 50MCG/1 ML 2ML syringe ONE ×2 (08:18→10:51)
[2021-03-11] MEDS ORDERED: midazolam 1 mg/ML 2ml injection ONE (08:18)
[2021-03-11] MEDS ORDERED: ROPIVAcaine 0.5% (5mg/ml) 30ml vial ONE (08:18)
[2021-03-11] MEDS ORDERED: propofol inj 20 ML IV ONE (08:20)
[2021-03-11] MEDS ORDERED: LIDOcaine 2% (20mg/ml) 5ml vial ONE (08:20)
[2021-03-11] MEDS ORDERED: ondansetron/PF 4mg/2ml inj IV PRN (08:25)
[2021-03-11] MEDS ORDERED: morphine 4 MG/ML inj SYRINge IV PRN (08:25)
[2021-03-11] MEDS ORDERED: fentaNYL/PF 50MCG/1 ML 2ML syringe IV PRN ×2 (08:25)
[2021-03-11] MEDS ORDERED: morphine 2 MG/ML inj. syringe IV PRN (08:25)
[2021-03-11] MEDS ORDERED: ringers solution, lacted 1,000 ML IV SCH (08:25)
[2021-03-11] MEDS ORDERED: hydrALAZINE 20mg/ml inj. IV PRN (08:25)
[2021-03-11] MEDS ORDERED: labetalol 20mg/4ml (5mg/ml) syringe IV PRN (08:25)
[2021-03-11] MEDS ORDERED: dexamethasone sod phosphate 10mg/ml inj ONE (09:00)
[2021-03-11] MEDS ORDERED: sevoflurane 250ml liquid IH ONE (09:00)
[2021-03-11] MEDS ORDERED: ceFAZolin 1000mg inj ONE (09:00)
[2021-03-11] MEDS ORDERED: ondansetron/PF 4mg/2ml inj ONE (09:29)
[2021-03-11] MEDS ORDERED: albumin (Human) 5% 250ml 250 ML IV ONE (09:40)
[2021-03-11] MEDS ORDERED: vancomycin 1,000mg inj ONE (10:27)
--- NOTE | 2021-03-11 11:35 | NUR ---
ADMITTED TO PACU FROM OR ACCOMPANIED BY ANESTHESIA. INTIAL PHYSICAL ASSESSMENT DONE AND RECORDED. REPORT RECEIVED FROM ANESTHESIA.
--- NOTE | 2021-03-11 12:07 | NUR ---
received report from WILDER RN. Anticipate pt to room 4003c shortly
--- NOTE | 2021-03-11 12:30 | NUR ---
PACU DISCHARGE CRITERIA MET, REPORT GIVEN TO FLOOR. DENIES PAIN OR DISCOMFORT. PT IS STABLE AND ADEQUATELY RECOVERED FROM ANESTHESIA. PT HAS STABLE AIRWAY PATENCY, RESPIRATORY FUNCTION TO INCLUDE RESPIRATORY RATE AND O2 SAT. HEART RATE, BLOOD PRESSURE STABLE AND HYDRATION ADEQUATE. MENTAL STATUS IS APPROPRIATE. PAIN AND NAUSEA CONTROLLED. REFER TO PACU SPREADSHEET FOR VITAL SIGNS.
--- NOTE | 2021-03-11 12:46 | NUR ---
arrived from RR. Immediately ambulated with assistance to BR where she voided and had a liquid yellow BM, the first since the ostomy take down surgery (pt states). Back to bed, arranged for comfort. Bowel sounds present in all four quadrants. 02 sat 89-90 on RA, placed pt on 02 to titrate to at least 93. Pt now sitting up to eat lunch in bed. Ongoing monitoring of vitals.
--- NOTE | 2021-03-11 18:07 | NUR ---
report to cara VELA
--- NOTE | 2021-03-11 18:15 | NUR ---
Patient in room ORTHO 4009. I have received report from Kasia VELA and had the opportunity to ask questions and assume patient care.
--- NOTE | 2021-03-11 21:00 | NUR ---
She did state that she felt like she couldn't take a deep breath and had some shortness of breath but her oxygen saturation is wnl and she had a block for her arm surgery and that will cause a feeling of shortness of breath at times. Will continue to monitor. Addendum: 03/12/21 at 0027 by Yumiko Vogt RN Amended: Links added.
--- NOTE | 2021-03-11 21:00 | NUR ---
Pt has a splint to the left arm that has cast wrap and leonela wrap over it from her surgery today/
[2021-03-11] MEDS: normal saline 1000ml 1,000 ML IV SCH (22:10)
[2021-03-12 02:00] VITALS: BP 130/77
--- NOTE | 2021-03-12 02:19 | NUR ---
I have repositioned her left arm that is in a sling multiple times throughout the night and placed powder packs to site to decrease the swelling. When she sleeps the arm will fall off the pillow at times. Her block appears to have worn off and she is moving the fingers on the left hand and c/o that she has pins/ needles sensation to arm/ hand. Pain is 7/10 and she can be medicated at 0230 with pain meds.
[2021-03-12] MEDS: oxyCODONE/APAP 10/325mg tablet PO PRN ×5 (02:34→21:26)
[2021-03-12 06:00] VITALS: BP 141/64
--- NOTE | 2021-03-12 06:13 | NUR ---
Patient in room ORTHO 4009. I have received report from Yumiko VELA and had the opportunity to ask questions and assume patient care.
[2021-03-12 06:17] LABS: ALANINE AMINOTRANSFERASE 19 U/L (12-78); ALBUMIN 2.3 G/DL (3.4-5.0); ALBUMIN/GLOBULIN RATIO 0.6 (1.1-1.5); ALKALINE PHOSPHATASE 96 IU/L (46-116); ANION GAP 11 (8-16); ASPARTATE AMINO TRANSFERASE 18 U/L (10-37); BILIRUBIN,TOTAL 0.6 MG/DL (0.1-1.0); CALCIUM 7.7 MG/DL (8.5-10.1); CHLORIDE 105 MMOL/L (99-107); CREATININE 0.69 MG/DL (0.40-0.90); GLUCOSE 121 MG/DL (70-104); POTASSIUM 3.9 MMOL/L (3.5-5.1); SODIUM 138 MMOL/L (135-145); TOTAL PROTEIN 5.9 G/DL (6.4-8.2); eGFR 88 ML/MIN
[2021-03-12 06:29] LABS: BLOOD UREA NITROGEN 6 MG/DL (7-18); BUN/CREATININE RATIO 8.7 (6.6-38.0)
[2021-03-12] MEDS: pantoprazole 40mg Tablet.DR PO SCH (07:37)
[2021-03-12] MEDS: sennosides/docusate sodium tablet PO SCH ×2 (07:37→21:25)
[2021-03-12 10:00] VITALS: BP 165/64
[2021-03-12 12:10] LABS: BASOPHILS # (AUTO) 0.1 X10'3 (0-0.2); BASOPHILS % (AUTO) 0.4 % (0-1); EOSINOPHILS % (AUTO) 0.1 % (0-6); HEMATOCRIT 25.4 % (35.0-45.0); HEMOGLOBIN 8.3 g/dl (12.0-16.0); LYMPHOCYTES # (AUTO) 0.7 X10'3 (1.1-4.8); LYMPHOCYTES % (AUTO) 4.6 % (21-51); MEAN CORPUSCULAR HGB CONC 32.7 g/dL (33.0-36.5); MEAN CORPUSCULAR VOLUME 88.6 FL (78-98); MEAN PLATELET VOLUME 6.8 FL (7.4-10.4); MONOCYTES # (AUTO) 1.3 X10'3 (0-0.9); NEUTROPHILS # (AUTO) 12.7 X10'3 (1.8-7.7); NEUTROPHILS % (AUTO) 85.9 % (42-75); PLATELET COUNT 350 X10'3 (140-440); RED BLOOD COUNT 2.86 X10'6 (4.20-5.60); RED CELL DISTRIBUTION WIDTH 17.6 % (11.5-14.5); WHITE BLOOD COUNT 14.8 X10'3 (4.5-11.0)
[2021-03-12 18:00] VITALS: BP 157/74
--- NOTE | 2021-03-12 18:48 | NUR ---
Problems reprioritized. Patient report given, questions answered & plan of care reviewed with Keturah VELA.
[2021-03-13] MEDS: oxyCODONE/APAP 10/325mg tablet PO PRN ×5 (02:04→20:09)
[2021-03-13 06:00] VITALS: BP 163/94
--- NOTE | 2021-03-13 06:21 | NUR ---
Patient in room ORTHO 4009. I have received report from Keturah VELA and had the opportunity to ask questions and assume patient care.
[2021-03-13] MEDS: pantoprazole 40mg Tablet.DR PO SCH (07:25)
[2021-03-13] MEDS: sennosides/docusate sodium tablet PO SCH ×2 (07:25→19:18)
[2021-03-13] MEDS: HYDROmorphone inj. 0.5 MG/0.5 ML DISP.SYRIN IV PRN ×4 (10:27→23:29)
--- NOTE | 2021-03-13 15:03 | NUR ---
Initial: Pt admitted for colostomy takedown and is s/p open colostomy reversal 03/08 and ORIF of L wrist 03/11. Pt able to eat moderately well, 75% of most meals on Regular diet which meets 100% of est protein and energy needs. No N/V/D reported, LBM 03/11. No nutritional diagnosis at this time, will continue to monitor PO trends. Recs: 1. Continue Regular diet as tolerated 2. Bowel care per rx 3. Weekly wts Addendum: 03/13/21 at [address] Amended: Links added.
[2021-03-13] MEDS: piperacillin/tazo 3.375gm/50ml 50 ML IV SCH (15:34)
--- NOTE | 2021-03-13 17:43 | NUR ---
GOT [facility] OF WOUND CARE THEY STATED THAT WITH THE LIQUID LIDOCAINE TRY TO CHANGE DRESSING BY JUST USING SALINE. IF PT CANT TOLERATE USE A LITTLE OF LIDOCAINE AROUND THE EDGES WHERE PULLING PACKING OUT. I WILL USE A LITTLE AROUND THE EDGES
[2021-03-13] MEDS: LIDOcaine 1% 30ml preserv. free vial TOP PRN (17:45)
[2021-03-13 18:00] VITALS: BP 164/102
--- NOTE | 2021-03-13 18:08 | NUR ---
pt could not handle pulling out of the wound packing with just soaking in saline. I used the lidocaine solution that was in the eMAR, pharmacy wasn't sure about how to dose it, and per wound care they stated to only use a little around the edges, i used about 1 mL. Pt tolerated that much better.
[2021-03-13] MEDS: lactobacillus rhamnosus 10,000 MMU CELLS/CAPSULE PO SCH (19:18)
[2021-03-13 22:00] VITALS: BP 145/99
[2021-03-13] MEDS: hydrOXYzine 25 MG tablet PO PRN (22:56)
--- NOTE | 2021-03-14 00:16 | NUR ---
Problems reprioritized. Patient report given, questions answered & plan of care reviewed with SANDRA VELA.
[2021-03-14] MEDS: piperacillin/tazo 3.375gm/50ml 50 ML IV SCH ×3 (00:30→16:08)
[2021-03-14] MEDS: oxyCODONE/APAP 10/325mg tablet PO PRN ×6 (00:36→21:38)
--- NOTE | 2021-03-14 06:07 | NUR ---
Patient in room ORTHO 4009. I have received report from Gisselle VELA and had the opportunity to ask questions and assume patient care.
--- NOTE | 2021-03-14 06:30 | NUR ---
Report to Kerri VELA.
[2021-03-14 06:42] VITALS: BP 144/93
[2021-03-14] MEDS: lactobacillus rhamnosus 10,000 MMU CELLS/CAPSULE PO SCH ×2 (06:57→20:47)
[2021-03-14] MEDS: pantoprazole 40mg Tablet.DR PO SCH (06:57)
[2021-03-14] MEDS: sennosides/docusate sodium tablet PO SCH ×2 (06:57→20:47)
[2021-03-14 07:11] LABS: BASOPHILS % (AUTO) 0.2 % (0-1); EOSINOPHILS # (AUTO) 0.1 X10'3 (0-0.9); EOSINOPHILS % (AUTO) 0.7 % (0-6); HEMATOCRIT 26.9 % (35.0-45.0); HEMOGLOBIN 8.7 g/dl (12.0-16.0); LYMPHOCYTES # (AUTO) 0.7 X10'3 (1.1-4.8); LYMPHOCYTES % (AUTO) 4.9 % (21-51); MEAN CORPUSCULAR HEMOGLOBIN 28.5 PG (27.0-31.0); MEAN CORPUSCULAR HGB CONC 32.2 g/dL (33.0-36.5); MEAN CORPUSCULAR VOLUME 88.5 FL (78-98); MONOCYTES # (AUTO) 1.5 X10'3 (0-0.9); MONOCYTES % (AUTO) 10.2 % (2-12); NEUTROPHILS # (AUTO) 12.1 X10'3 (1.8-7.7); PLATELET COUNT 478 X10'3 (140-440); RED BLOOD COUNT 3.04 X10'6 (4.20-5.60); WHITE BLOOD COUNT 14.4 X10'3 (4.5-11.0)
[2021-03-14 07:44] LABS: ALANINE AMINOTRANSFERASE 18 U/L (12-78); ALBUMIN/GLOBULIN RATIO 0.5 (1.1-1.5); ALKALINE PHOSPHATASE 94 IU/L (46-116); ANION GAP 13 (8-16); ASPARTATE AMINO TRANSFERASE 22 U/L (10-37); BILIRUBIN,TOTAL 0.7 MG/DL (0.1-1.0); BLOOD UREA NITROGEN 5 MG/DL (7-18); BUN/CREATININE RATIO 9.8 (6.6-38.0); CALCIUM 7.6 MG/DL (8.5-10.1); CHLORIDE 101 MMOL/L (99-107); CREATININE 0.51 MG/DL (0.40-0.90); GLUCOSE 99 MG/DL (70-104); SODIUM 137 MMOL/L (135-145); TOTAL CARBON DIOXIDE 22.9 MMOL/L (24-32); eGFR > 90 ML/MIN
[2021-03-14 08:04] LABS: POTASSIUM 2.9 MMOL/L (3.5-5.1)
--- NOTE | 2021-03-14 09:23 | NUR ---
I have called Dr. Farah 3 times with no answer and his voicemail is full making it unable for me to leave him a message regarding the patients critical potassium.
[2021-03-14] MEDS ORDERED: magnesium 4gm in 100ml NS 100 ML IV PRN (09:25)
[2021-03-14] MEDS ORDERED: potassium Cl 20 mEq SR tablet PO PRN ×2 (09:25)
[2021-03-14] MEDS ORDERED: magnesium Cl slow-release 64mg tablet PO PRN (09:25)
[2021-03-14] MEDS ORDERED: potassium Cl 40MEQ/1/2NS 520ml 520 ML IV PRN (09:25)
[2021-03-14 10:00] VITALS: BP 144/93
[2021-03-14] MEDS ORDERED: POTASSIUM BICARB 20meq eff tab 20 MEQ TABLET.EFF PO PRN (12:55)
[2021-03-14] MEDS: POTASSIUM BICARB 20meq eff tab 20 MEQ TABLET.EFF PO PRN ×2 (13:12→17:14)
[2021-03-14] MEDS: normal saline 1000ml 1,000 ML IV SCH (15:00)
[2021-03-14 18:00] VITALS: BP 143/78
--- NOTE | 2021-03-14 18:16 | NUR ---
Problems reprioritized. Patient report given, questions answered & plan of care reviewed with Heaven VELA.
[2021-03-14] MEDS: K and/or MAG REPLACEMENT MC SCH (20:00)
[2021-03-14 22:00] VITALS: BP 150/92
[2021-03-14] MEDS: LIDOcaine 1% 30ml preserv. free vial TOP PRN (23:49)
[2021-03-15] MEDS: piperacillin/tazo 3.375gm/50ml 50 ML IV SCH ×2 (00:10→07:22)
[2021-03-15] MEDS: oxyCODONE/APAP 10/325mg tablet PO PRN ×4 (02:06→14:08)
[2021-03-15 06:00] VITALS: BP 145/95
--- NOTE | 2021-03-15 06:39 | NUR ---
Patient in room ORTHO 4009. I have received report from ENRIQUE VELA and had the opportunity to ask questions and assume patient care.
[2021-03-15] MEDS: sennosides/docusate sodium tablet PO SCH (07:22)
[2021-03-15] MEDS: pantoprazole 40mg Tablet.DR PO SCH (07:22)
[2021-03-15] MEDS: lactobacillus rhamnosus 10,000 MMU CELLS/CAPSULE PO SCH (07:22)
[2021-03-15] MEDS: K and/or MAG REPLACEMENT MC SCH (08:00)
[2021-03-15 10:00] VITALS: BP 139/79
--- NOTE | 2021-03-15 13:24 | NUR ---
Problems reprioritized. Patient report given, questions answered & plan of care reviewed with Rachel foy [facility] .
--- NOTE | 2021-03-15 14:00 | NUR ---
called to give report to ophelia sue said to please leave midline in pt so that they can use it there since the pt is a hard stick. pt will be discharged with midline.
--- NOTE | 2021-03-15 14:01 | NUR ---
pt had abd dressing changed before discharge to [facility].
--- NOTE | 2021-03-15 14:44 | NUR ---
report was given to ophelia and new wound dressing was applied. pt left with all belongings on a gurney with [facility] personnel in a [facility].
== END 2021-03-15 14:40 | DRG 330 ==
LOC: PAS IN 03-08 07:04 → SUR 3N 03-08 17:45 → ORTHO 4S 03-10 18:55
PROVIDERS: ADMIT Surgery; ATTEND Surgery
PROC: 0T788DZ Dilation of Bilateral Ureters with Intraluminal Device, Via Natural or Artificial Opening Endoscopic (ICD-10-PCS; 2021-03-08)
PROC: 0DQK0ZZ Repair Ascending Colon, Open Approach (ICD-10-PCS; principal; 2021-03-08 13:09)
PROC: 0DNW0ZZ Release Peritoneum, Open Approach (ICD-10-PCS; 2021-03-08 13:09)
PROC: 0PSG04Z Reposition Left Humeral Shaft with Internal Fixation Device, Open Approach (ICD-10-PCS; 2021-03-11)
PROC: 0PUJ0KZ Supplement Left Radius with Nonautologous Tissue Substitute, Open Approach (ICD-10-PCS; 2021-03-11)
PROC: 0RPP04Z Removal of Internal Fixation Device from Left Wrist Joint, Open Approach (ICD-10-PCS; 2021-03-11)
PROC: 3E0T3BZ Introduction of Anesthetic Agent into Peripheral Nerves and Plexi, Percutaneous Approach (ICD-10-PCS; 2021-03-11)
PROC: 3E0T33Z Introduction of Anti-inflammatory into Peripheral Nerves and Plexi, Percutaneous Approach (ICD-10-PCS; 2021-03-11)
DX: Z43.3 Encounter for attention to colostomy (principal); S52.502P Unspecified fracture of the lower end of left radius, subsequent encounter for closed fracture with malunion; I10 Essential (primary) hypertension; K21.9 Gastro-esophageal reflux disease without esophagitis; K59.09 Other constipation; K66.0 Peritoneal adhesions (postprocedural) (postinfection); Z80.51 Family history of malignant neoplasm of kidney; Z82.49 Family history of ischemic heart disease and other diseases of the circulatory system; Z79.899 Other long term (current) drug therapy; Z59.0 Homelessness
CPT/HCPCS: 36415; 74018; 76000; 80047; 80048; 80053; 81001; 82948; 84132; 85025; 85610; 85730; 86885; 86900; 86901; 87081; A4618; A6253; A6446; A6449; A7000; C1713; C1758; C1769; C9290; G0378; J0131; J0690; J0694; J1100; J1170; J2001; J2250; J2270; J2405; J2543; J2704; J2710; J2795; J3010; J3370; J3480; J3490; J7030; J7120; P9045; Q0177

== ENCOUNTER 2021-03-03 09:30 | Emergency (ER) | payer MEDICAID ==
[~2021-03-03] VITALS: Ht 157.5 cm; Wt 59.5 kg
[~2021-03-03 09:30] MED LIST changes: +GABA-534 PO; +GABA300C PO; +OXYC-145 PO; +SUCR1TAB PO
[2021-03-03 09:59] VITALS: BP 124/98
[2021-03-04] MEDS ORDERED: HYDR-3965 PO (16:04)
== END 2021-03-03 14:47 | disposition home or self-care (01) ==
LOC: ER 09:31
DX: S52.502D Unspecified fracture of the lower end of left radius, subsequent encounter for closed fracture with routine healing (principal); X58.XXXD Exposure to other specified factors, subsequent encounter
CPT/HCPCS: 73090; 99283

== ENCOUNTER 2021-03-04 10:25 | Emergency (ER) | payer MEDICARE, MEDICAID ==
[~2021-03-04] VITALS: Ht 157.5 cm; Wt 59.5 kg
[2021-03-04 10:31] VITALS: BP 142/100
[2021-03-04] MEDS ORDERED: HYDR-3965 PO (16:04)
== END 2021-03-04 16:36 | disposition home or self-care (01) ==
LOC: ER 10:25
DX: M79.602 Pain in left arm (principal); M25.532 Pain in left wrist; I10 Essential (primary) hypertension; K21.9 Gastro-esophageal reflux disease without esophagitis; Z87.01 Personal history of pneumonia (recurrent); Z87.410 Personal history of cervical dysplasia; Z59.0 Homelessness; Z79.899 Other long term (current) drug therapy; Z87.81 Personal history of (healed) traumatic fracture
CPT/HCPCS: 99283

== ENCOUNTER 2021-04-18 06:09 | Emergency (ER) | payer MEDICARE, MEDICAID ==
[~2021-04-18] VITALS: Ht 157.5 cm; Wt 63.6 kg
[~2021-04-18 06:09] MED LIST changes: -GABA-534 PO; -GABA300C PO; -OXYC-145 PO; -SUCR1TAB PO
[2021-04-18] MEDS ORDERED: mag hydrox/Alum hydrox/simeth 30ml oral suspension PO ONE (08:40)
[2021-04-18] MEDS ORDERED: LIDOcaine Viscous 15ml cup MM ONE (08:40)
[2021-04-18] MEDS ORDERED: famotidine 20mg tablet PO ONE (08:40)
[2021-04-18] MEDS ORDERED: ondansetron 4mg rapidly disintigrating tab PO ONE (08:40)
[2021-04-18] MEDS ORDERED: ONDA4TAB6 PO (08:46)
[2021-04-18] MEDS ORDERED: FAMO-128 PO (08:46)
[2021-04-23] MEDS ORDERED: THIA100T66 PO (16:58)
[2021-04-23] MEDS ORDERED: FOLI0.4T6 PO (16:58)
[2021-04-23] MEDS ORDERED: GABA300C PO (16:58)
[2021-04-23] MEDS ORDERED: LISI20TA28 PO (16:58)
[2021-04-23] MEDS ORDERED: PANT40TA54 PO (16:58)
== END 2021-04-18 10:04 | disposition home or self-care (01) ==
LOC: ER 06:09
DX: K21.00 Gastro-esophageal reflux disease with esophagitis, without bleeding (principal); I10 Essential (primary) hypertension; F41.9 Anxiety disorder, unspecified; F32.9 Major depressive disorder, single episode, unspecified; K21.9 Gastro-esophageal reflux disease without esophagitis
CPT/HCPCS: 99284

== ENCOUNTER 2021-05-24 13:28 | Emergency (ER) | payer MEDICARE ==
[~2021-05-24] VITALS: Ht 157.5 cm; Wt 81.0 kg
[~2021-05-24 13:28] MED LIST changes: +FOLI0.4T6 PO; -OMEP-50 PO; +OMEP20CA15 PO; +THIA100T70 PO
[2021-05-24 13:34] VITALS: BP 142/111
[2021-05-24 14:09] LABS: BASOPHILS # (AUTO) 0.1 X10'3 (0-0.2); BASOPHILS % (AUTO) 0.6 % (0-1); EOSINOPHILS # (AUTO) 0.1 X10'3 (0-0.9); EOSINOPHILS % (AUTO) 0.8 % (0-6); HEMATOCRIT 28.3 % (35.0-45.0); HEMOGLOBIN 9.2 g/dl (12.0-16.0); LYMPHOCYTES # (AUTO) 1.8 X10'3 (1.1-4.8); LYMPHOCYTES % (AUTO) 18.8 % (21-51); MEAN CORPUSCULAR HEMOGLOBIN 26.4 PG (27.0-31.0); MEAN CORPUSCULAR HGB CONC 32.7 g/dL (33.0-36.5); MEAN CORPUSCULAR VOLUME 80.6 FL (78-98); MEAN PLATELET VOLUME 6.4 FL (7.4-10.4); MONOCYTES # (AUTO) 0.9 X10'3 (0-0.9); MONOCYTES % (AUTO) 9.5 % (2-12); NEUTROPHILS # (AUTO) 6.8 X10'3 (1.8-7.7); NEUTROPHILS % (AUTO) 70.3 % (42-75); PLATELET COUNT 715 X10'3 (140-440); RED BLOOD COUNT 3.51 X10'6 (4.20-5.60); RED CELL DISTRIBUTION WIDTH 18.2 % (11.5-14.5); WHITE BLOOD COUNT 9.7 X10'3 (4.5-11.0)
[2021-05-24 14:23] LABS: ALANINE AMINOTRANSFERASE 15 U/L (12-78); ALBUMIN/GLOBULIN RATIO 0.6 (1.1-1.5); ALKALINE PHOSPHATASE 97 IU/L (46-116); ANION GAP 8 (8-16); ASPARTATE AMINO TRANSFERASE 10 U/L (10-37); BILIRUBIN,TOTAL 0.3 MG/DL (0.1-1.0); BLOOD UREA NITROGEN 7 MG/DL (7-18); BUN/CREATININE RATIO 9.9 (6.6-38.0); CALCIUM 9.9 MG/DL (8.5-10.1); CHLORIDE 96 MMOL/L (99-107); CREATININE 0.71 MG/DL (0.40-0.90); GLUCOSE 93 MG/DL (70-104); LIPASE < 50 U/L (73-393); POTASSIUM 3.9 MMOL/L (3.5-5.1); SODIUM 134 MMOL/L (135-145); TOTAL CARBON DIOXIDE 29.7 MMOL/L (24-32); TOTAL PROTEIN 7.9 G/DL (6.4-8.2); eGFR 85 ML/MIN
== END 2021-05-24 16:37 | disposition left against medical advice (07) ==
LOC: ER 13:29
DX: R10.13 Epigastric pain (principal); D64.9 Anemia, unspecified; R11.2 Nausea with vomiting, unspecified; R07.0 Pain in throat; I10 Essential (primary) hypertension; K21.9 Gastro-esophageal reflux disease without esophagitis; F41.9 Anxiety disorder, unspecified; F32.9 Major depressive disorder, single episode, unspecified; Z87.01 Personal history of pneumonia (recurrent); Z85.41 Personal history of malignant neoplasm of cervix uteri; Z98.890 Other specified postprocedural states; Z72.89 Other problems related to lifestyle; Z59.00 Homelessness unspecified; Z79.899 Other long term (current) drug therapy
CPT/HCPCS: 80053; 83690; 85025; 99283

== ENCOUNTER 2021-06-26 08:32 | Emergency (ER) | payer MEDICARE ==
[~2021-06-26] VITALS: Ht 157.5 cm; Wt 63.6 kg
[~2021-06-26 08:32] MED LIST changes: -FOLI0.4T6 PO
[2021-06-26] MEDS ORDERED: famotidine/PF 10 mg/ml inj IV ONE (08:50)
[2021-06-26] MEDS ORDERED: metoclopramide 5 mg/ml inj IV ONE (08:50)
[2021-06-26 09:00] VITALS: BP 139/80
[2021-06-26 09:16] LABS: BASOPHILS % (AUTO) 0.1 % (0-1); EOSINOPHILS % (AUTO) 0 % (0-6); HEMOGLOBIN 8.6 g/dl (12.0-16.0)
[2021-06-26 09:18] LABS: HEMATOCRIT 27.1 % (35.0-45.0); LYMPHOCYTES # (AUTO) 0.7 X10'3 (1.1-4.8); LYMPHOCYTES % (AUTO) 5.2 % (21-51); MEAN CORPUSCULAR HEMOGLOBIN 24.5 PG (27.0-31.0); MEAN CORPUSCULAR HGB CONC 31.8 g/dL (33.0-36.5); MEAN CORPUSCULAR VOLUME 77.1 FL (78-98); MEAN PLATELET VOLUME 6.5 FL (7.4-10.4); MONOCYTES % (AUTO) 7.1 % (2-12); NEUTROPHILS # (AUTO) 11.7 X10'3 (1.8-7.7); NEUTROPHILS % (AUTO) 87.6 % (42-75); PLATELET COUNT 623 X10'3 (140-440); RED BLOOD COUNT 3.51 X10'6 (4.20-5.60); RED CELL DISTRIBUTION WIDTH 19.7 % (11.5-14.5); WHITE BLOOD COUNT 13.4 X10'3 (4.5-11.0)
[2021-06-26 09:54] LABS: ALANINE AMINOTRANSFERASE 18 U/L (12-78); ALBUMIN 3.6 G/DL (3.4-5.0); ALBUMIN/GLOBULIN RATIO 0.8 (1.1-1.5); ALKALINE PHOSPHATASE 97 IU/L (46-116); ASPARTATE AMINO TRANSFERASE 23 U/L (10-37); BILIRUBIN,TOTAL 0.7 MG/DL (0.1-1.0); BLOOD UREA NITROGEN 16 MG/DL (7-18); BUN/CREATININE RATIO 21.3 (6.6-38.0); CALCIUM 8.1 MG/DL (8.5-10.1); CREATININE 0.75 MG/DL (0.40-0.90); ETHANOL 0.081 GM/DL (0.0-0.010); GLUCOSE 97 MG/DL (70-104); LIPASE 53 U/L (73-393); TOTAL CARBON DIOXIDE 15.6 MMOL/L (24-32); TOTAL PROTEIN 8.1 G/DL (6.4-8.2); eGFR 80 ML/MIN
[2021-06-26] MEDS ORDERED: potassium Cl 20 mEq SR tablet PO STA (10:18)
[2021-06-26 10:19] LABS: ANION GAP 28 (8-16); CHLORIDE 83 MMOL/L (99-107); SODIUM 127 MMOL/L (135-145)
[2021-06-26] MEDS ORDERED: potassium Cl 10 mEq/100mL bag IV ONE (10:20)
[2021-06-26 10:21] LABS: POTASSIUM 2.9 MMOL/L (3.5-5.1)
[2021-06-26 10:22] LABS: ANISOCYTOSIS 2+; HYPOCHROMASIA 1+; MICROCYTOSIS 1+; PLATELET ESTIMATE INCREASED; TOTAL CELLS COUNTED 100
[2021-06-26 10:24] LABS: POLYCHROMASIA FEW; SCHISTOCYTES FEW
== END 2021-06-26 12:15 | disposition home or self-care (01) ==
LOC: ER 08:33
DX: K29.20 Alcoholic gastritis without bleeding (principal); F10.129 Alcohol abuse with intoxication, unspecified; R11.2 Nausea with vomiting, unspecified; E87.6 Hypokalemia; I10 Essential (primary) hypertension; K21.9 Gastro-esophageal reflux disease without esophagitis; Z87.410 Personal history of cervical dysplasia; Z87.01 Personal history of pneumonia (recurrent); Z90.49 Acquired absence of other specified parts of digestive tract; Z59.00 Homelessness unspecified; Z72.89 Other problems related to lifestyle; Z79.899 Other long term (current) drug therapy; Y90.6 Blood alcohol level of 120-199 mg/100 ml
CPT/HCPCS: 36415; 80053; 80320; 83690; 85007; 85025; 96365; 96375; 99284; J2765; J3480; J3490

== ENCOUNTER 2021-06-27 05:51 | Inpatient (IN) | payer MEDICARE ==
[~2021-06-27] VITALS: Ht 157.5 cm; Wt 61.0 kg
[2021-06-27] MEDS ORDERED: famotidine/PF 10 mg/ml inj IV ONE (06:15)
[2021-06-27] MEDS ORDERED: pantoprazole IV 80 MG in normal saline 100ml IV soln 100 ML IV ONE (06:15)
[2021-06-27] MEDS ORDERED: normal saline 1000ML IV soln IVB ONE (06:15)
[2021-06-27] MEDS ORDERED: ondansetron/PF 4mg/2ml inj IV ONE (06:15)
[2021-06-27] MEDS: pantoprazole 40MG/NS 100ML BAG 100 ML IV SCH ×4 (06:54→19:29)
[2021-06-27 08:09] LABS: ALANINE AMINOTRANSFERASE 19 U/L (12-78); ALBUMIN 3.4 G/DL (3.4-5.0); ALBUMIN/GLOBULIN RATIO 0.8 (1.1-1.5); ALKALINE PHOSPHATASE 89 IU/L (46-116); ASPARTATE AMINO TRANSFERASE 24 U/L (10-37); BILIRUBIN,TOTAL 0.9 MG/DL (0.1-1.0); BLOOD UREA NITROGEN 10 MG/DL (7-18); BUN/CREATININE RATIO 14.9 (6.6-38.0); CALCIUM 8.6 MG/DL (8.5-10.1); CREATININE 0.67 MG/DL (0.40-0.90); ETHANOL < 0.010 GM/DL (0.0-0.010); GLUCOSE 70 MG/DL (70-104); LIPASE 90 U/L (73-393); TOTAL PROTEIN 7.5 G/DL (6.4-8.2); eGFR > 90 ML/MIN
[2021-06-27] MEDS ORDERED: proCHLORperazine 10 MG/2 ml inj IV ONE (08:10)
[2021-06-27 08:19] LABS: TOTAL CARBON DIOXIDE 14.4 MMOL/L (24-32)
[2021-06-27 08:26] LABS: BASOPHILS % (AUTO) 0.3 % (0-1); EOSINOPHILS % (AUTO) 0 % (0-6); HEMATOCRIT 24.8 % (35.0-45.0); HEMOGLOBIN 7.8 g/dl (12.0-16.0); LYMPHOCYTES # (AUTO) 0.7 X10'3 (1.1-4.8); LYMPHOCYTES % (AUTO) 7.2 % (21-51); MEAN CORPUSCULAR HGB CONC 31.6 g/dL (33.0-36.5); MEAN PLATELET VOLUME 6.4 FL (7.4-10.4); MONOCYTES # (AUTO) 0.9 X10'3 (0-0.9); MONOCYTES % (AUTO) 10.3 % (2-12); NEUTROPHILS # (AUTO) 7.6 X10'3 (1.8-7.7); NEUTROPHILS % (AUTO) 82.2 % (42-75); PLATELET COUNT 419 X10'3 (140-440); RED BLOOD COUNT 3.13 X10'6 (4.20-5.60); RED CELL DISTRIBUTION WIDTH 19.7 % (11.5-14.5); WHITE BLOOD COUNT 9.2 X10'3 (4.5-11.0)
[2021-06-27 08:43] LABS: ANION GAP 28 (8-16); CHLORIDE 90 MMOL/L (99-107); SODIUM 132 MMOL/L (135-145)
[2021-06-27 08:46] LABS: POTASSIUM 2.7 MMOL/L (3.5-5.1)
[2021-06-27] MEDS ORDERED: potassium Cl 10 mEq/100mL bag IV ONE (08:50)
[2021-06-27] MEDS ORDERED: dextrose 5%-normal saline 1,000 ML IV ONE (08:50)
[2021-06-27] MEDS ORDERED: potassium Cl 20 mEq SR tablet PO ONE (08:50)
[2021-06-27] MEDS ORDERED: thiamine 100mg/ml 2ml inj. IV ONE (08:50)
[2021-06-27 09:18] LABS: ANISOCYTOSIS 2+; ELLIPTOCYTES FEW; PLATELET ESTIMATE NORMAL
[2021-06-27] MEDS ORDERED: dicyclomine 10 MG capsule PO PRN (09:55)
[2021-06-27] MEDS ORDERED: magnesium Cl slow-release 64mg tablet PO PRN (09:55)
[2021-06-27] MEDS ORDERED: dextrose 50%-water 50ml dispensing syringe IV PRN (09:55)
[2021-06-27] MEDS ORDERED: haloperidol 5mg tablet PO PRN (09:55)
[2021-06-27] MEDS ORDERED: loperamide 2mg capsule PO PRN ×2 (09:55)
[2021-06-27] MEDS ORDERED: LORazepam 2 mg/ml vial IV PRN (09:55)
[2021-06-27] MEDS ORDERED: magnesium hydroxide 30ml (MOM) UD suspension PO PRN (09:55)
[2021-06-27] MEDS ORDERED: morphine 2 MG/ML inj. syringe IV PRN ×2 (09:55)
[2021-06-27] MEDS ORDERED: potassium CL 10mEq/100ml bag 100 ML IV PRN (09:55)
[2021-06-27] MEDS ORDERED: haloperidol lactate 5mg/ml inj IM PRN (09:55)
[2021-06-27] MEDS ORDERED: magnesium 2GM in 50ml NS 50 ML IV PRN (09:55)
[2021-06-27] MEDS ORDERED: mag hydrox/Alum hydrox/simeth 30ml oral suspension PO PRN ×2 (09:55)
[2021-06-27] MEDS ORDERED: magnesium 4gm in 100ml NS 100 ML IV PRN (09:55)
[2021-06-27] MEDS ORDERED: ondansetron/PF 4mg/2ml inj IV PRN (09:55)
[2021-06-27] MEDS ORDERED: acetaminophen 325mg tablet PO PRN ×2 (09:55)
[2021-06-27 11:27] LABS: MAGNESIUM 1.7 MG/DL (1.5-2.4); POTASSIUM 2.7 MMOL/L (3.5-5.1)
[2021-06-27] MEDS: potassium Cl 20mEq in NS 1,000 ML IV SCH ×2 (11:57→19:55)
[2021-06-27] MEDS: thiamine 100mg/ml 2ml inj. IV SCH ×2 (13:00→21:41)
[2021-06-27] MEDS: potassium Cl 20 mEq SR tablet PO PRN ×2 (14:27→19:26)
[2021-06-27 15:00] VITALS: BP 122/88
[2021-06-27 18:00] VITALS: BP 139/79
--- NOTE | 2021-06-27 18:50 | NUR ---
Patient in room PCU 3022. I have received report from Russell VELA and had the opportunity to ask questions and assume patient care.
[2021-06-27] MEDS: docusate sod 100mg capsule PO SCH (19:40)
[2021-06-27] MEDS: K and/or MAG REPLACEMENT MC SCH (19:41)
[2021-06-27 22:00] VITALS: BP 134/80
[2021-06-28] VITALS (8 sets, daily range): BP systolic 107–166; BP diastolic 74–99
[2021-06-28] MEDS: potassium Cl 20 mEq SR tablet PO PRN ×4 (02:55→17:10)
[2021-06-28] MEDS: HYDROcodone/acetaminophen 10/325mg tab PO PRN ×3 (03:04→20:40)
[2021-06-28] MEDS: potassium Cl 20mEq in NS 1,000 ML IV SCH (05:55)
[2021-06-28 06:10] LABS: BASOPHILS % (AUTO) 0.3 % (0-1); EOSINOPHILS % (AUTO) 0.4 % (0-6); HEMATOCRIT 23.2 % (35.0-45.0); HEMOGLOBIN 7.6 g/dl (12.0-16.0); MEAN CORPUSCULAR HEMOGLOBIN 25.6 PG (27.0-31.0); MEAN CORPUSCULAR HGB CONC 32.7 g/dL (33.0-36.5); MEAN CORPUSCULAR VOLUME 78.1 FL (78-98); MEAN PLATELET VOLUME 6.7 FL (7.4-10.4); MONOCYTES # (AUTO) 0.7 X10'3 (0-0.9); MONOCYTES % (AUTO) 8.9 % (2-12); NEUTROPHILS # (AUTO) 5.6 X10'3 (1.8-7.7); NEUTROPHILS % (AUTO) 76.4 % (42-75); PLATELET COUNT 421 X10'3 (140-440); RED BLOOD COUNT 2.98 X10'6 (4.20-5.60); WHITE BLOOD COUNT 7.3 X10'3 (4.5-11.0)
--- NOTE | 2021-06-28 06:20 | NUR ---
Problems reprioritized. Patient report given, questions answered & plan of care reviewed with Kerri VELA.
[2021-06-28 06:22] LABS: ANION GAP 11 (8-16); BLOOD UREA NITROGEN 5 MG/DL (7-18); BUN/CREATININE RATIO 8.5 (6.6-38.0); CALCIUM 8.7 MG/DL (8.5-10.1); CHLORIDE 98 MMOL/L (99-107); CREATININE 0.59 MG/DL (0.40-0.90); GLUCOSE 110 MG/DL (70-104); MAGNESIUM 1.4 MG/DL (1.5-2.4); POTASSIUM 3.3 MMOL/L (3.5-5.1); SODIUM 134 MMOL/L (135-145); eGFR > 90 ML/MIN
--- NOTE | 2021-06-28 06:25 | NUR ---
received report from jessica VELA
[2021-06-28] MEDS: pantoprazole 40MG/NS 100ML BAG 100 ML IV SCH ×2 (07:22→22:47)
[2021-06-28] MEDS: docusate sod 100mg capsule PO SCH ×2 (07:23→20:40)
[2021-06-28] MEDS: multivitamins, therapeutics tablet PO SCH (07:23)
[2021-06-28] MEDS: K and/or MAG REPLACEMENT MC SCH ×2 (08:38→20:48)
[2021-06-28] MEDS ORDERED: normal saline 1000ml 1,000 ML IV SCH (09:15)
[2021-06-28] MEDS ORDERED: normal saline 500ml IV soln 500 ML IV ONE ×2 (09:15→16:00)
--- NOTE | 2021-06-28 09:16 | NUR ---
Patient complaining of light headedness, orthostatics performed with a >50 mmhg drop in systolic pressure. MD notified, 500ml bolus ordered.
--- NOTE | 2021-06-28 10:32 | NUR ---
Met with patient in regards to alcohol use and seeing if patient was interested in resources for treatment options. Patient would like to go to an inpatient treatment facility. Patient is interested in [facility] or [facility]. I gave patient the number for both facilities. I will follow up with patient to see what the status is.
[2021-06-28] MEDS: folic acid 1mg/0.2ml inj IV SCH (11:43)
[2021-06-28] MEDS: thiamine 100mg/ml 2ml inj. IV SCH ×3 (11:43→20:41)
[2021-06-28] MEDS: HYDROcodone/acetaminophen 5mg/325mg tablet PO PRN ×2 (11:43→17:09)
--- NOTE | 2021-06-28 11:50 | NUR ---
PAGER ID: [phone] MESSAGE: Bree Ibrahim still orthostatic, sitting 151/99 hr 91, standing 106/68 hr 104. PO [phone]
--- NOTE | 2021-06-28 11:53 | NUR ---
Patient still significantly orthostatic. 144/92 sitting and 106/68 standing. MD notified. normal saline bolus infused, IVF running at 75mls/hr
--- NOTE | 2021-06-28 12:18 | NUR ---
MD did not respond to page regarding patients orthostatic vital signs. I have instructed her many times to not get up without help.
--- NOTE | 2021-06-28 14:00 | NUR ---
PRESSURE ULCER EDUCATION: DEFINITION: A pressure ulcer is an area of skin that breaks down when you stay in one position too long. The constant pressure against the skin reduces the blood flow to that area and the affected tissue dies. CAUSES: "Being bedridden or in a wheelchair "Fragile skin "Having a chronic condition, such as diabetes or vascular disease "Inability to move certain parts of your body without assistance "Older age "Incontinence of urine or stool SYMPTOMS: "A reddened area that DOES NOT turn white when pressed on - this can be the beginning of a pressure ulcer "A blister, deep sore or a crater - these can be advanced pressure ulcers FIRST AID: "Relieve the pressure on this area "Keep the area clean and dry "Call your primary doctor if you see any of the above symptoms "DO NOT massage the area "DO NOT use a donut shaped or ring shaped pillow- these actually interfere with the blood flow and cause complications PREVENTION: "Check for pressure ulcers everyday "Change position at least every two hours to relieve pressure "Use items that help relieve pressure- pillows, sheepskin, foam padding, and powders. "Keep skin clean and dry "Eat healthy well balanced meals "Exercise daily IF YOU SEE ANY OF THESE SYMPTOMS WHILE IN THE HOSPITAL - TELL YOUR NURSE IMMEDIATELY. IF YOU SEE ANY OF THESE SYMPTOMS WHILE AT HOME OR HAVE ANY QUESTIONS OR CONCERNS ABOUT PRESSURE ULCERS - CALL YOUR PRIMARY DOCTOR IMMEDIATELY. Addendum: 06/28/21 at 1400 by Keturah Adames RN Amended: Links added.
--- NOTE | 2021-06-28 14:56 | NUR ---
Patient called and complained of feeling "weird" stated she is very "panicky", gave 1mg IV ativan to help with anxiety. IV fluid bolus running at this time.
[2021-06-28] MEDS ORDERED: normal saline 1000ml 1,000 ML IV ONE (15:00)
--- NOTE | 2021-06-28 15:07 | NUR ---
Placed patient on bed alarm, she got up to throw away some trash and was very upset with me that i put a bed alarm on her bed. Educated patient on the fact that i have asked her many times to call me when she needs to get up and she has not, she is complaining of lightheadedness and now is panicky and received IV ativan and i don't want her getting up on her own.
--- NOTE | 2021-06-28 15:53 | NUR ---
PAGER ID: [phone] MESSAGE: [id number] after liter bolus 145/97 hr 102 sitting, 125/83 hr 104 standing ignacia 81
--- NOTE | 2021-06-28 16:03 | NUR ---
Spoke with MD regarding patients orthostatic hypotension again, another 500 ml bolus to be given and then IVF to run at 100mls/hr. Patient is feeling much more calm after receiving ativan.
[2021-06-28] MEDS: normal saline 1000ml 1,000 ML IV SCH (16:16)
--- NOTE | 2021-06-28 18:27 | NUR ---
Problems reprioritized. Patient report given, questions answered & plan of care reviewed with Flavia VELA.
[2021-06-29] MEDS: normal saline 1000ml 1,000 ML IV SCH (01:53)
[2021-06-29 02:00] VITALS: BP 128/78
[2021-06-29] MEDS: HYDROcodone/acetaminophen 10/325mg tab PO PRN ×3 (03:05→11:13)
[2021-06-29 06:00] VITALS: BP 124/83
[2021-06-29 06:06] LABS: BASOPHILS % (AUTO) 0.3 % (0-1); EOSINOPHILS # (AUTO) 0.1 X10'3 (0-0.9); EOSINOPHILS % (AUTO) 1.1 % (0-6); HEMATOCRIT 22.4 % (35.0-45.0); HEMOGLOBIN 7.2 g/dl (12.0-16.0); LYMPHOCYTES # (AUTO) 0.7 X10'3 (1.1-4.8); LYMPHOCYTES % (AUTO) 12.9 % (21-51); MEAN CORPUSCULAR HEMOGLOBIN 25.6 PG (27.0-31.0); MEAN CORPUSCULAR HGB CONC 32.2 g/dL (33.0-36.5); MEAN CORPUSCULAR VOLUME 79.3 FL (78-98); MEAN PLATELET VOLUME 6.5 FL (7.4-10.4); MONOCYTES # (AUTO) 0.4 X10'3 (0-0.9); MONOCYTES % (AUTO) 7.9 % (2-12); NEUTROPHILS # (AUTO) 4.2 X10'3 (1.8-7.7); NEUTROPHILS % (AUTO) 77.8 % (42-75); PLATELET COUNT 349 X10'3 (140-440); RED BLOOD COUNT 2.83 X10'6 (4.20-5.60); RED CELL DISTRIBUTION WIDTH 20.5 % (11.5-14.5); WHITE BLOOD COUNT 5.4 X10'3 (4.5-11.0)
[2021-06-29 06:10] LABS: ALBUMIN 2.6 G/DL (3.4-5.0); ANION GAP 5 (8-16); BLOOD UREA NITROGEN 7 MG/DL (7-18); BUN/CREATININE RATIO 15.6 (6.6-38.0); CALCIUM 7.9 MG/DL (8.5-10.1); CHLORIDE 103 MMOL/L (99-107); CREATININE 0.45 MG/DL (0.40-0.90); GLUCOSE 101 MG/DL (70-104); MAGNESIUM 1.1 MG/DL (1.5-2.4); POTASSIUM 3.3 MMOL/L (3.5-5.1); SODIUM 135 MMOL/L (135-145); TOTAL CARBON DIOXIDE 26.6 MMOL/L (24-32); eGFR > 90 ML/MIN
--- NOTE | 2021-06-29 06:35 | NUR ---
Patient in room PCU 3022. I have received report from soni stark and had the opportunity to ask questions and assume patient care.
--- NOTE | 2021-06-29 06:42 | NUR ---
Problems reprioritized. Patient report given, questions answered & plan of care reviewed with Nadine VELA.
[2021-06-29] MEDS: potassium Cl 20 mEq SR tablet PO PRN (07:07)
[2021-06-29] MEDS: pantoprazole 40MG/NS 100ML BAG 100 ML IV SCH (07:07)
[2021-06-29] MEDS: folic acid 1mg/0.2ml inj IV SCH (07:07)
[2021-06-29] MEDS: docusate sod 100mg capsule PO SCH (07:08)
[2021-06-29] MEDS: thiamine 100mg/ml 2ml inj. IV SCH (07:09)
[2021-06-29] MEDS: K and/or MAG REPLACEMENT MC SCH (07:09)
[2021-06-29] MEDS: multivitamins, therapeutics tablet PO SCH (07:09)
[2021-06-29] MEDS ORDERED: PANT-47 PO (08:46)
[2021-06-29] MEDS ORDERED: LORazepam 1 MG tablet PO PRN (09:55)
[2021-06-29] MEDS ORDERED: LORazepam 2 mg/ml vial IV PRN (09:55)
[2021-06-29 11:00] VITALS: BP 143/98
[2021-06-29] MEDS ORDERED: MAGN400C PO (11:49)
--- NOTE | 2021-06-29 12:40 | NUR ---
pt discharged in stable condition to [facility] via [facility] bus. iv removed tip intact no complications. Belongings sent with patient. Discharge education provided to patient. Pt discharged at 1212.
[2021-07-01] MEDS ORDERED: LORazepam 1 MG tablet PO PRN (09:55)
[2021-07-01] MEDS ORDERED: LORazepam 2 mg/ml vial IV PRN (09:55)
[2021-07-02] MEDS ORDERED: folic acid 1mg tablet PO SCH (08:00)
[2021-07-02] MEDS ORDERED: thiamine 100mg tablet PO SCH (08:00)
== END 2021-06-29 12:35 | disposition home or self-care (01) | DRG 369 ==
LOC: ER 05:51 → ED HOLD 09:55 → PCU 3S 14:05
PROVIDERS: ADMIT Internal Medicine; ATTEND Internal Medicine
DX: K20.91 Esophagitis, unspecified with bleeding (principal); E87.1 Hypo-osmolality and hyponatremia; E87.2 Acidosis; K29.70 Gastritis, unspecified, without bleeding; I95.1 Orthostatic hypotension; F10.20 Alcohol dependence, uncomplicated; D64.9 Anemia, unspecified; E83.42 Hypomagnesemia; F32.A Depression, unspecified; F41.9 Anxiety disorder, unspecified; E86.0 Dehydration; E87.6 Hypokalemia; I10 Essential (primary) hypertension; Z59.00 Homelessness unspecified; Z82.49 Family history of ischemic heart disease and other diseases of the circulatory system; Z85.41 Personal history of malignant neoplasm of cervix uteri; Z93.3 Colostomy status
CPT/HCPCS: 36415; 80048; 80053; 80320; 83605; 83690; 83735; 84132; 84484; 85007; 85008; 85025; 87081; 96365; 96375; 99284; C9113; G0378; J0780; J2060; J2405; J2765; J3411; J3480; J3490; J7030; J7040; J7042

== ENCOUNTER 2021-07-20 08:26 | Emergency (ER) | payer MEDICARE ==
[~2021-07-20] VITALS: Ht 157.5 cm; Wt 61.0 kg
[~2021-07-20 08:26] MED LIST changes: -HYDR-3686 PO; +MAGN400C PO; -OMEP20CA15 PO; +PANT-47 PO; -THIA100T70 PO
[2021-07-20 08:36] VITALS: BP 134/99
[2021-07-20] MEDS ORDERED: SUCR1TAB34 PO (08:39)
[2021-07-20] MEDS ORDERED: LIDOcaine Viscous 15ml cup MM ONE (08:40)
[2021-07-20] MEDS ORDERED: sucralfate 1 gm tablet PO ONE (08:40)
[2021-07-20] MEDS ORDERED: mag hydrox/Alum hydrox/simeth 30ml oral suspension PO ONE (08:40)
== END 2021-07-20 08:53 | disposition home or self-care (01) ==
LOC: ER 08:27
DX: K29.70 Gastritis, unspecified, without bleeding (principal); I10 Essential (primary) hypertension; K21.9 Gastro-esophageal reflux disease without esophagitis; F41.9 Anxiety disorder, unspecified; F32.9 Major depressive disorder, single episode, unspecified; Z87.01 Personal history of pneumonia (recurrent); Z85.41 Personal history of malignant neoplasm of cervix uteri; Z98.890 Other specified postprocedural states; Z72.89 Other problems related to lifestyle; Z79.899 Other long term (current) drug therapy
CPT/HCPCS: 99283

== ENCOUNTER 2021-08-11 19:47 | Inpatient (IN) | payer BC, MEDICARE ==
[~2021-08-11] VITALS: Ht 157.5 cm; Wt 59.1 kg
[~2021-08-11 19:47] MED LIST changes: +SUCR1TAB34 PO
--- NOTE | 2021-08-11 20:24 | NUR ---
PT STATES WILL GO HOME AFTER EKG AND COME BACK TOMMORROW SHE STATES SHE CANNOT SIT IN LOBBY FOR TOO LONG. MD SIMMS NOTIFIED OF PT COMPLAINTS AND CHOICE TO LEAVE AFTER TRIAGE AND EKG.
[2021-08-11] MEDS ORDERED: iohexol 350MG/ML 100ml bottle IV ONE (23:27)
[2021-08-11 23:44] LABS: BASOPHILS % (AUTO) 0.3 % (0-1); EOSINOPHILS % (AUTO) 0.3 % (0-6); HEMATOCRIT 32.2 % (35.0-45.0); HEMOGLOBIN 11.1 g/dl (12.0-16.0); LYMPHOCYTES # (AUTO) 0.8 X10'3 (1.1-4.8); LYMPHOCYTES % (AUTO) 10.6 % (21-51); MEAN CORPUSCULAR HEMOGLOBIN 25.2 PG (27.0-31.0); MEAN CORPUSCULAR HGB CONC 34.4 g/dL (33.0-36.5); MEAN CORPUSCULAR VOLUME 73.2 FL (78-98); MEAN PLATELET VOLUME 6.1 FL (7.4-10.4); MONOCYTES % (AUTO) 12.3 % (2-12); NEUTROPHILS % (AUTO) 76.5 % (42-75); PLATELET COUNT 598 X10'3 (140-440); RED BLOOD COUNT 4.39 X10'6 (4.20-5.60); RED CELL DISTRIBUTION WIDTH 22.3 % (11.5-14.5); WHITE BLOOD COUNT 7.8 X10'3 (4.5-11.0)
[2021-08-12 00:12] LABS: APTT 31 SECONDS (22-32)
[2021-08-12 00:17] LABS: ANISOCYTOSIS 3+; ELLIPTOCYTES FEW; MICROCYTOSIS 1+; PLATELET ESTIMATE INCREASED; STOMATOCYTES 1+
[2021-08-12 00:23] LABS: ALANINE AMINOTRANSFERASE 24 U/L (12-78); ALBUMIN 3.6 G/DL (3.4-5.0); ALBUMIN/GLOBULIN RATIO 0.7 (1.1-1.5); ALKALINE PHOSPHATASE 159 IU/L (46-116); ANION GAP 5 (8-16); ASPARTATE AMINO TRANSFERASE 29 U/L (10-37); BILIRUBIN,TOTAL 0.9 MG/DL (0.1-1.0); BLOOD UREA NITROGEN 15 MG/DL (7-18); BUN/CREATININE RATIO 17.2 (6.6-38.0); CALCIUM 9.1 MG/DL (8.5-10.1); CHLORIDE 67 MMOL/L (99-107); CREATININE 0.87 MG/DL (0.40-0.90); GLUCOSE 103 MG/DL (70-104); TOTAL CARBON DIOXIDE 39.9 MMOL/L (24-32); eGFR 67 ML/MIN
[2021-08-12] MEDS ORDERED: aspirin 325mg tablet PO ONE (00:25)
[2021-08-12] MEDS ORDERED: LIDOcaine Viscous 15ml cup MM ONE (00:35)
[2021-08-12] MEDS ORDERED: mag hydrox/Alum hydrox/simeth 30ml oral suspension PO ONE (00:35)
[2021-08-12 00:36] LABS: POTASSIUM 1.8 MMOL/L (3.5-5.1); SODIUM 112 MMOL/L (135-145)
[2021-08-12] MEDS: potassium Cl 20 mEq SR tablet PO STA ×2 (00:40→01:26)
[2021-08-12] MEDS ORDERED: magnesium 2GM in 50ml NS 50 ML IV ONE (00:40)
[2021-08-12] MEDS ORDERED: normal saline 1000ml 1,000 ML IV ONE (00:40)
[2021-08-12] MEDS ORDERED: ZOLP5TAB8 PO (01:50)
[2021-08-12] MEDS ORDERED: OMEP-50 PO (01:50)
[2021-08-12] MEDS ORDERED: PANT40TA54 PO (01:50)
--- NOTE | 2021-08-12 02:18 | NUR ---
pt eating turkey sandwich and yogurt
[2021-08-12] MEDS ORDERED: Potassium Cl inj 20 MEQ in normal saline 1000ml 990 ML IV SCH (02:20)
[2021-08-12] MEDS ORDERED: potassium Cl 20 mEq SR tablet PO PRN (02:25)
[2021-08-12] MEDS ORDERED: potassium Cl 20mEq in NS 1,000 ML IV SCH (02:25)
[2021-08-12] MEDS ORDERED: magnesium hydroxide 30ml (MOM) UD suspension PO PRN (02:25)
[2021-08-12] MEDS ORDERED: ondansetron/PF 4mg/2ml inj IV PRN (02:25)
[2021-08-12] MEDS ORDERED: acetaminophen 325mg tablet PO PRN ×2 (02:25)
[2021-08-12 03:09] LABS: CLARITY,URINE SLIGHTLY CLOUDY (Clear); COLOR,URINE YELLOW (Yellow); GLUCOSE, URINE NEGATIVE (Neg); KETONES,URINE NEGATIVE (Neg); LEUKOCYTE ESTERASE ,URINE MODERATE (Neg); NITRITES, URINE NEGATIVE (Neg); OCCULT BLOOD,URINE LARGE (Neg); PH,URINE 6.5 (4.8-8.0); PROTEIN,URINE NEGATIVE (Neg); UROBILINOGEN,URINE 0.2 E.U/dL (0.2-1.0)
[2021-08-12 03:14] LABS: UA COLLECTION TYPE OTHER
[2021-08-12 03:15] LABS: BACTERIA,URINE 2+ /HPF (Neg); SQUAMOUS EPITHELIAL CELL,UR FEW /LPF (FEW); WBC,URINE 30-50 /HPF (0-4)
[2021-08-12] MEDS: morphine 2 MG/ML inj. syringe IV PRN (03:24)
[2021-08-12] MEDS ORDERED: sucralfate 1 gm tablet PO ONE (05:00)
[2021-08-12 06:59] LABS: OSMOLALITY UA 276 MOSM/K (50-1400); SODIUM,URINE RANDOM 28 MEQ/L
[2021-08-12] MEDS: K and/or MAG REPLACEMENT MC SCH (08:00)
[2021-08-12 08:13] LABS: MAGNESIUM 1.8 MG/DL (1.5-2.4)
[2021-08-12] MEDS ORDERED: potassium CL 10mEq/100ml bag 100 ML IV ONE (08:35)
[2021-08-12] MEDS: potassium Cl 20 mEq SR tablet PO PRN ×2 (09:08→20:55)
[2021-08-12 10:47] LABS: ALBUMIN 2.6 G/DL (3.4-5.0); ANION GAP 2 (8-16); BLOOD UREA NITROGEN 18 MG/DL (7-18); BUN/CREATININE RATIO 17.8 (6.6-38.0); CALCIUM 8.1 MG/DL (8.5-10.1); CHLORIDE 78 MMOL/L (99-107); CREATININE 1.01 MG/DL (0.40-0.90); GLUCOSE 122 MG/DL (70-104); MAGNESIUM 1.8 MG/DL (1.5-2.4); PHOSPHORUS 2.2 MG/DL (2.3-4.5); TOTAL CARBON DIOXIDE 38.8 MMOL/L (24-32); eGFR 56 ML/MIN
[2021-08-12 10:52] LABS: POTASSIUM 2.2 MMOL/L (3.5-5.1); SODIUM 119 MMOL/L (135-145)
--- NOTE | 2021-08-12 11:10 | NUR ---
Per Dr. Salgado stop IV fluids now, order Lidocaine Viscus to take with meds for sore throat.
[2021-08-12] MEDS: morphine 4 MG/ML inj SYRINge IV PRN ×3 (11:42→20:55)
[2021-08-12] MEDS: LIDOcaine Viscous 15ml cup MM PRN ×2 (11:43→20:55)
[2021-08-12 14:03] LABS: ALBUMIN 2.7 G/DL (3.4-5.0); ANION GAP 3 (8-16); BLOOD UREA NITROGEN 20 MG/DL (7-18); CALCIUM 8.4 MG/DL (8.5-10.1); CHLORIDE 81 MMOL/L (99-107); CREATININE 0.91 MG/DL (0.40-0.90); GLUCOSE 119 MG/DL (70-104); SODIUM 122 MMOL/L (135-145); TOTAL CARBON DIOXIDE 38.5 MMOL/L (24-32); eGFR 64 ML/MIN
[2021-08-12 14:08] LABS: POTASSIUM 2.4 MMOL/L (3.5-5.1)
[2021-08-12] MEDS: POTASSIUM BICARB 20meq eff tab 20 MEQ TABLET.EFF PO PRN (14:52)
[2021-08-12] MEDS ORDERED: levoFLOXACIN 250mg tablet PO ONE (16:20)
--- NOTE | 2021-08-12 16:20 | NUR ---
I cld Dr. Salgado because patient is complaining of frequent urination and discomfort, he UA shows elevated WBC. Per MD give Levaquin 500mg PO daily and if no cultured do so.
[2021-08-12 20:21] LABS: ALBUMIN 2.8 G/DL (3.4-5.0); ANION GAP 2 (8-16); BLOOD UREA NITROGEN 23 MG/DL (7-18); BUN/CREATININE RATIO 26.7 (6.6-38.0); CALCIUM 8.7 MG/DL (8.5-10.1); CHLORIDE 83 MMOL/L (99-107); CREATININE 0.86 MG/DL (0.40-0.90); GLUCOSE 107 MG/DL (70-104); POTASSIUM 3.2 MMOL/L (3.5-5.1); SODIUM 122 MMOL/L (135-145); TOTAL CARBON DIOXIDE 37.1 MMOL/L (24-32); eGFR 68 ML/MIN
[2021-08-13] MEDS: morphine 4 MG/ML inj SYRINge IV PRN (03:05)
--- NOTE | 2021-08-13 04:33 | NUR ---
received admission report from ED RN Jade. Had the opportunity to review patients chart and ask questions before assuming care.
[2021-08-13 04:45] VITALS: BP 123/75
[2021-08-13] MEDS ORDERED: HYDROcodone/acetaminophen 10/325mg tab PO ONE (05:05)
[2021-08-13] MEDS: POTASSIUM BICARB 20meq eff tab 20 MEQ TABLET.EFF PO PRN (05:12)
[2021-08-13 06:38] LABS: BASOPHILS % (AUTO) 0.1 % (0-1); EOSINOPHILS % (AUTO) 0.4 % (0-6); HEMATOCRIT 31.2 % (35.0-45.0); LYMPHOCYTES % (AUTO) 12.1 % (21-51); MEAN CORPUSCULAR HEMOGLOBIN 24.9 PG (27.0-31.0); MEAN CORPUSCULAR HGB CONC 32.2 g/dL (33.0-36.5); MEAN CORPUSCULAR VOLUME 77.5 FL (78-98); MEAN PLATELET VOLUME 6.2 FL (7.4-10.4); MONOCYTES # (AUTO) 1.1 X10'3 (0-0.9); MONOCYTES % (AUTO) 13.6 % (2-12); NEUTROPHILS # (AUTO) 6.2 X10'3 (1.8-7.7); NEUTROPHILS % (AUTO) 73.8 % (42-75); PLATELET COUNT 509 X10'3 (140-440); RED BLOOD COUNT 4.03 X10'6 (4.20-5.60); WHITE BLOOD COUNT 8.4 X10'3 (4.5-11.0)
[2021-08-13 06:54] LABS: ANION GAP 4 (8-16); BLOOD UREA NITROGEN 20 MG/DL (7-18); CALCIUM 8.7 MG/DL (8.5-10.1); CHLORIDE 88 MMOL/L (99-107); GLUCOSE 105 MG/DL (70-104); MAGNESIUM 1.9 MG/DL (1.5-2.4); PHOSPHORUS 1.7 MG/DL (2.3-4.5); POTASSIUM 3.8 MMOL/L (3.5-5.1); SODIUM 128 MMOL/L (135-145); TOTAL CARBON DIOXIDE 36.1 MMOL/L (24-32); eGFR 74 ML/MIN
[2021-08-13 07:00] VITALS: BP 126/82
[2021-08-13 07:31] LABS: PLATELET ESTIMATE INCREASED
[2021-08-13 07:32] LABS: ANISOCYTOSIS 3+; HYPOCHROMASIA 1+; MICROCYTOSIS 1+; POLYCHROMASIA 1+
[2021-08-13 07:33] LABS: ELLIPTOCYTES FEW; STOMATOCYTES FEW
[2021-08-13] MEDS ORDERED: pantoprazole 40mg Tablet.DR PO SCH (08:00)
[2021-08-13] MEDS: K and/or MAG REPLACEMENT MC SCH (08:45)
[2021-08-13] MEDS: morphine 2 MG/ML inj. syringe IV PRN ×2 (08:47→13:30)
[2021-08-13] MEDS ORDERED: magnesium Cl slow-release 64mg tablet PO PRN (10:30)
[2021-08-13] MEDS ORDERED: magnesium 4gm in 100ml NS 100 ML IV PRN (10:30)
[2021-08-13] MEDS ORDERED: potassium Cl 40MEQ/1/2NS 520ml 520 ML IV PRN (10:30)
[2021-08-13] MEDS ORDERED: CefTRIAXone/D5W-Rocephin 1gm 50 ML IV SCH (10:30)
[2021-08-13] MEDS ORDERED: potassium Cl 20 mEq SR tablet PO PRN ×2 (10:30)
[2021-08-13 11:00] VITALS: BP 128/85
[2021-08-13] MEDS: LIDOcaine Viscous 15ml cup MM PRN (11:08)
[2021-08-13 12:45] LABS: ALBUMIN 2.6 G/DL (3.4-5.0); ANION GAP -1 (8-16); BLOOD UREA NITROGEN 18 MG/DL (7-18); BUN/CREATININE RATIO 21.4 (6.6-38.0); CALCIUM 8.7 MG/DL (8.5-10.1); CHLORIDE 86 MMOL/L (99-107); CREATININE 0.84 MG/DL (0.40-0.90); GLUCOSE 115 MG/DL (70-104); POTASSIUM 3.5 MMOL/L (3.5-5.1); SODIUM 122 MMOL/L (135-145); TOTAL CARBON DIOXIDE 36.8 MMOL/L (24-32); eGFR 70 ML/MIN
[2021-08-13] MEDS ORDERED: MAGN400C PO (14:01)
[2021-08-13] MEDS ORDERED: POTA-207 PO (14:01)
[2021-08-13] MEDS ORDERED: MULT-1085 PO (14:01)
[2021-08-13] MEDS ORDERED: FOLI0.4T6 PO (14:01)
[2021-08-13] MEDS ORDERED: THIA50TA10 PO (14:01)
[2021-08-13] MEDS ORDERED: PANT40TA54 PO ×2 (14:01)
[2021-08-13] MEDS ORDERED: CEFD300C3 PO (14:02)
[2021-08-13] MEDS ORDERED: thiamine 100mg/ml 2ml inj. IV ONE (14:05)
[2021-08-13] MEDS ORDERED: folic acid 1mg tablet PO ONE (14:05)
--- NOTE | 2021-08-13 18:08 | NUR ---
Problems reprioritized. Patient report given, questions answered & plan of care reviewed with Kd RN. Patient ready to go home waiting for cab.
[2021-08-13] MEDS ORDERED: K and/or MAG REPLACEMENT MC SCH (20:00)
== END 2021-08-13 18:00 | disposition home or self-care (01) | DRG 645 ==
LOC: ER 19:48 → ED HOLD 08-12 02:28 → PCU 3S 08-13 04:45
PROVIDERS: ADMIT Internal Medicine Pulmonary Disease; ATTEND Internal Medicine Pulmonary Disease
DX: E22.2 Syndrome of inappropriate secretion of antidiuretic hormone (principal); E87.6 Hypokalemia; E87.8 Other disorders of electrolyte and fluid balance, not elsewhere classified; F32.A Depression, unspecified; F41.9 Anxiety disorder, unspecified; Z20.822 Contact with and (suspected) exposure to COVID-19; F10.20 Alcohol dependence, uncomplicated; W18.39XA Other fall on same level, initial encounter; K21.9 Gastro-esophageal reflux disease without esophagitis; I10 Essential (primary) hypertension; Z82.49 Family history of ischemic heart disease and other diseases of the circulatory system; Z85.41 Personal history of malignant neoplasm of cervix uteri; Z93.3 Colostomy status; Z59.00 Homelessness unspecified; Y93.89 Activity, other specified; Y92.89 Other specified places as the place of occurrence of the external cause; Y99.8 Other external cause status; Z79.899 Other long term (current) drug therapy
CPT/HCPCS: 36415; 70450; 71045; 80048; 80053; 81001; 83735; 83880; 83935; 84100; 84300; 84443; 84484; 85008; 85025; 85610; 85730; 87077; 87081; 87088; 87186; 87635; 93005; 99291; 99292; C9803; G0378; J0696; J2270; J2405; J3411; J3480; J7030; Q9967

== ENCOUNTER 2021-08-24 10:26 | Emergency (ER) | payer BC ==
[~2021-08-24] VITALS: Ht 157.5 cm; Wt 61.3 kg
[~2021-08-24 10:26] MED LIST changes: +CEFD300C3 PO; +FOLI0.4T6 PO; +MULT-1085 PO; -PANT-47 PO; +PANT40TA54 PO; +POTA-207 PO; -SUCR1TAB34 PO; +THIA50TA10 PO
[2021-08-24 10:49] VITALS: BP 166/108
[2021-08-24 12:31] LABS: BASOPHILS # (AUTO) 0.1 X10'3 (0-0.2); BASOPHILS % (AUTO) 0.5 % (0-1); EOSINOPHILS % (AUTO) 0.1 % (0-6); HEMATOCRIT 26.5 % (35.0-45.0); HEMOGLOBIN 8.7 g/dl (12.0-16.0); LYMPHOCYTES # (AUTO) 1.1 X10'3 (1.1-4.8); LYMPHOCYTES % (AUTO) 9.6 % (21-51); MEAN CORPUSCULAR HEMOGLOBIN 25.2 PG (27.0-31.0); MEAN CORPUSCULAR HGB CONC 32.7 g/dL (33.0-36.5); MEAN CORPUSCULAR VOLUME 77.2 FL (78-98); MEAN PLATELET VOLUME 6.2 FL (7.4-10.4); MONOCYTES # (AUTO) 0.7 X10'3 (0-0.9); MONOCYTES % (AUTO) 6.2 % (2-12); NEUTROPHILS # (AUTO) 9.6 X10'3 (1.8-7.7); NEUTROPHILS % (AUTO) 83.6 % (42-75); PLATELET COUNT 702 X10'3 (140-440); RED BLOOD COUNT 3.44 X10'6 (4.20-5.60); RED CELL DISTRIBUTION WIDTH 23.1 % (11.5-14.5); WHITE BLOOD COUNT 11.5 X10'3 (4.5-11.0)
[2021-08-24 12:44] LABS: ALANINE AMINOTRANSFERASE 19 U/L (12-78); ALBUMIN/GLOBULIN RATIO 0.6 (1.1-1.5); ALKALINE PHOSPHATASE 157 IU/L (46-116); ANION GAP 16 (8-16); ASPARTATE AMINO TRANSFERASE 15 U/L (10-37); BILIRUBIN,TOTAL 0.8 MG/DL (0.1-1.0); BLOOD UREA NITROGEN 5 MG/DL (7-18); BUN/CREATININE RATIO 7.4 (6.6-38.0); CHLORIDE 92 MMOL/L (99-107); CREATININE 0.68 MG/DL (0.40-0.90); GLUCOSE 99 MG/DL (70-104); LIPASE < 50 U/L (73-393); SODIUM 132 MMOL/L (135-145); TOTAL CARBON DIOXIDE 23.8 MMOL/L (24-32); TOTAL PROTEIN 8.3 G/DL (6.4-8.2); eGFR 89 ML/MIN
[2021-08-24 12:47] LABS: POTASSIUM 2.7 MMOL/L (3.5-5.1)
[2021-08-24 13:02] LABS: MAGNESIUM 1.6 MG/DL (1.5-2.4)
[2021-08-24 13:18] LABS: PLATELET ESTIMATE INCREASED
[2021-08-24 13:19] LABS: ANISOCYTOSIS 3+; HYPOCHROMASIA 1+; MICROCYTOSIS 1+; POLYCHROMASIA 1+; STOMATOCYTES 1+
[2021-08-24 13:20] LABS: ELLIPTOCYTES FEW
--- NOTE | 2021-08-24 14:27 | NUR ---
ordered ekg per raghu haddad pt potassium low
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
[2021-08-24] MEDS ORDERED: normal saline 1000ML IV soln IVB ONE (18:05)
[2021-08-24] MEDS ORDERED: ondansetron/PF 4mg/2ml inj IV ONE (18:05)
[2021-08-24] MEDS ORDERED: morphine 4 MG/ML inj SYRINge IV PRN (18:05)
[2021-08-24] MEDS ORDERED: sucralfate 1gm/10ml UD suspension PO STA (18:50)
[2021-08-24] MEDS ORDERED: LIDOcaine Viscous 15ml cup MM ONE (18:50)
[2021-08-24] MEDS ORDERED: potassium Cl 10 mEq/100mL bag IV ONE (18:50)
[2021-08-24] MEDS ORDERED: mag hydrox/Alum hydrox/simeth 30ml oral suspension PO ONE (18:50)
[2021-08-24] MEDS ORDERED: sucralfate 1 gm tablet PO STA (19:14)
[2021-08-24] MEDS ORDERED: proCHLORperazine 10 MG/2 ml inj IV ONE (20:20)
[2021-08-24] MEDS ORDERED: diphenhydrAMINE 50 mg/ml inj IV ONE (20:20)
[2021-08-24] MEDS ORDERED: morphine 4 MG/ML inj SYRINge IV ONE (20:20)
== END 2021-08-24 22:25 | disposition home or self-care (01) ==
LOC: ER 10:28
DX: R10.13 Epigastric pain (principal); R11.2 Nausea with vomiting, unspecified; I10 Essential (primary) hypertension; K21.9 Gastro-esophageal reflux disease without esophagitis; Z87.01 Personal history of pneumonia (recurrent); Z87.19 Personal history of other diseases of the digestive system; Z87.410 Personal history of cervical dysplasia; Z98.890 Other specified postprocedural states; Z72.89 Other problems related to lifestyle; Z59.00 Homelessness unspecified
CPT/HCPCS: 36415; 71045; 80053; 83690; 83735; 85008; 85025; 96374; 96375; 99285; J0780; J1200; J2270; J2405; J3480; J7030

== ENCOUNTER 2021-08-26 16:11 | Emergency (ER) | payer BC ==
[~2021-08-26] VITALS: Ht 157.5 cm; Wt 61.0 kg
[2021-08-26] MEDS ORDERED: LIDOcaine Viscous 15ml cup TP ONE (17:30)
[2021-08-26] MEDS ORDERED: mag hydrox/Alum hydrox/simeth 30ml oral suspension PO ONE ×2 (17:30→20:35)
[2021-08-26 18:05] LABS: BASOPHILS # (AUTO) 0.1 X10'3 (0-0.2); BASOPHILS % (AUTO) 1.3 % (0-1); EOSINOPHILS % (AUTO) 0.2 % (0-6); HEMATOCRIT 23.6 % (35.0-45.0); HEMOGLOBIN 7.9 g/dl (12.0-16.0); LYMPHOCYTES # (AUTO) 1.1 X10'3 (1.1-4.8); LYMPHOCYTES % (AUTO) 10.7 % (21-51); MEAN CORPUSCULAR HEMOGLOBIN 26.2 PG (27.0-31.0); MEAN CORPUSCULAR HGB CONC 33.6 g/dL (33.0-36.5); MEAN PLATELET VOLUME 6.2 FL (7.4-10.4); MONOCYTES # (AUTO) 0.6 X10'3 (0-0.9); MONOCYTES % (AUTO) 5.9 % (2-12); NEUTROPHILS # (AUTO) 8.7 X10'3 (1.8-7.7); NEUTROPHILS % (AUTO) 81.9 % (42-75); PLATELET COUNT 546 X10'3 (140-440); RED BLOOD COUNT 3.03 X10'6 (4.20-5.60); RED CELL DISTRIBUTION WIDTH 23.4 % (11.5-14.5); WHITE BLOOD COUNT 10.7 X10'3 (4.5-11.0)
[2021-08-26 18:18] LABS: ALANINE AMINOTRANSFERASE 14 U/L (12-78); ALBUMIN 2.9 G/DL (3.4-5.0); ALBUMIN/GLOBULIN RATIO 0.6 (1.1-1.5); ALKALINE PHOSPHATASE 117 IU/L (46-116); ANION GAP 8 (8-16); ASPARTATE AMINO TRANSFERASE 11 U/L (10-37); BILIRUBIN,TOTAL 0.2 MG/DL (0.1-1.0); BLOOD UREA NITROGEN 12 MG/DL (7-18); CHLORIDE 92 MMOL/L (99-107); ETHANOL 0.023 GM/DL (0.0-0.010); GLUCOSE 99 MG/DL (70-104); LIPASE 55 U/L (73-393); MAGNESIUM 1.7 MG/DL (1.5-2.4); POTASSIUM 3.2 MMOL/L (3.5-5.1); SODIUM 132 MMOL/L (135-145); TOTAL PROTEIN 7.8 G/DL (6.4-8.2); eGFR 74 ML/MIN
[2021-08-26 18:39] LABS: CALCIUM 10.9 MG/DL (8.5-10.1)
[2021-08-26] MEDS ORDERED: pantoprazole IV 80 MG in normal saline 100ml IV soln 100 ML IV ONE (18:50)
[2021-08-26] MEDS ORDERED: normal saline 1000ML IV soln IVB ONE (18:50)
[2021-08-26] MEDS: PANTOPRAZOLE IV SCH ×2 (19:10→20:00)
[2021-08-26] MEDS: [UNRECOGNIZED DRUG - OTHER] IV SCH ×2 (19:10→20:00)
[2021-08-26 19:15] LABS: ANISOCYTOSIS 3+; MICROCYTOSIS 1+; PLATELET ESTIMATE INCREASED
[2021-08-26 19:16] LABS: ELLIPTOCYTES FEW; HYPOCHROMASIA 1+; LARGE PLATELETS FEW; POLYCHROMASIA 1+; STOMATOCYTES 1+
[2021-08-26] MEDS ORDERED: nitroGLYCERIN 0.4mg SUBLingual tab SL PRN ×2 (19:45→19:50)
[2021-08-26 20:18] LABS: BASOPHILS % (AUTO) 0.2 % (0-1); EOSINOPHILS % (AUTO) 0.3 % (0-6); HEMATOCRIT 24.3 % (35.0-45.0); HEMOGLOBIN 8.1 g/dl (12.0-16.0); LYMPHOCYTES # (AUTO) 1.4 X10'3 (1.1-4.8); LYMPHOCYTES % (AUTO) 14.7 % (21-51); MEAN CORPUSCULAR HGB CONC 33.4 g/dL (33.0-36.5); MEAN CORPUSCULAR VOLUME 77.8 FL (78-98); MEAN PLATELET VOLUME 6.3 FL (7.4-10.4); MONOCYTES # (AUTO) 0.9 X10'3 (0-0.9); MONOCYTES % (AUTO) 9.1 % (2-12); NEUTROPHILS # (AUTO) 7.4 X10'3 (1.8-7.7); NEUTROPHILS % (AUTO) 75.7 % (42-75); PLATELET COUNT 520 X10'3 (140-440); RED BLOOD COUNT 3.13 X10'6 (4.20-5.60); RED CELL DISTRIBUTION WIDTH 23.4 % (11.5-14.5); WHITE BLOOD COUNT 9.8 X10'3 (4.5-11.0)
[2021-08-26] MEDS ORDERED: LIDOcaine Viscous 15ml cup MM PRN (20:35)
[2021-08-26] MEDS ORDERED: PANT20TA2 PO (20:56)
[2021-08-26 21:11] VITALS: BP 97/74
== END 2021-08-26 21:10 | disposition home or self-care (01) ==
LOC: ER 16:11
DX: K29.20 Alcoholic gastritis without bleeding (principal); F10.10 Alcohol abuse, uncomplicated; D50.0 Iron deficiency anemia secondary to blood loss (chronic); I10 Essential (primary) hypertension; K21.9 Gastro-esophageal reflux disease without esophagitis; Z87.01 Personal history of pneumonia (recurrent); Z87.410 Personal history of cervical dysplasia; Z90.49 Acquired absence of other specified parts of digestive tract; Z98.890 Other specified postprocedural states; Z72.89 Other problems related to lifestyle; Z59.00 Homelessness unspecified; Z86.19 Personal history of other infectious and parasitic diseases; Z87.19 Personal history of other diseases of the digestive system; Z79.899 Other long term (current) drug therapy; Y90.7 Blood alcohol level of 200-239 mg/100 ml
CPT/HCPCS: 36415; 80053; 80320; 83690; 83735; 85008; 85025; 96365; 96366; 99284; C9113; J7030

== ENCOUNTER 2021-08-28 16:37 | Emergency (ER) | payer BC ==
[~2021-08-28] VITALS: Ht 157.5 cm; Wt 61.4 kg
[~2021-08-28 16:37] MED LIST changes: +PANT20TA2 PO
[2021-08-28 16:43] VITALS: BP 159/97
[2021-08-28] MEDS ORDERED: LIDOcaine Viscous 15ml cup MM ONE (18:15)
[2021-08-28] MEDS ORDERED: sucralfate 1 gm tablet PO ONE (18:15)
[2021-08-28] MEDS ORDERED: mag hydrox/Alum hydrox/simeth 30ml oral suspension PO ONE (18:15)
== END 2021-08-28 18:24 | disposition home or self-care (01) ==
LOC: ER 16:37
DX: K29.20 Alcoholic gastritis without bleeding (principal); F10.10 Alcohol abuse, uncomplicated; Y90.9 Presence of alcohol in blood, level not specified; I10 Essential (primary) hypertension; K21.9 Gastro-esophageal reflux disease without esophagitis; Z87.01 Personal history of pneumonia (recurrent); Z87.19 Personal history of other diseases of the digestive system; Z87.410 Personal history of cervical dysplasia; Z90.49 Acquired absence of other specified parts of digestive tract; Z98.890 Other specified postprocedural states; Z72.89 Other problems related to lifestyle; Z56.0 Unemployment, unspecified; Z79.899 Other long term (current) drug therapy; Z91.19 Patient's noncompliance with other medical treatment and regimen
CPT/HCPCS: 99283

== ENCOUNTER 2021-09-02 03:10 | Emergency (ER) | payer BC ==
[~2021-09-02] VITALS: Ht 157.5 cm; Wt 53.1 kg
[2021-09-02 03:16] VITALS: BP 135/96
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
== END 2021-09-02 05:21 | disposition left against medical advice (07) ==
LOC: ER 03:11
DX: R42 Dizziness and giddiness (principal); Z53.21 Procedure and treatment not carried out due to patient leaving prior to being seen by health care provider

== ENCOUNTER 2021-09-08 20:42 | Emergency (ER) | payer BC | END 2021-09-08 22:00 | disposition home or self-care (01) | LOC: ER 20:43 | DX: R11.10 Vomiting, unspecified (principal); R10.9 Unspecified abdominal pain; Z53.21 Procedure and treatment not carried out due to patient leaving prior to being seen by health care provider ==

== ENCOUNTER 2021-10-02 20:29 | Emergency (ER) | payer BC ==
[~2021-10-02] VITALS: Ht 157.5 cm; Wt 64.2 kg
[~2021-10-02 20:29] MED LIST changes: -CEFD300C3 PO; -FOLI0.4T6 PO; -POTA-207 PO
[2021-10-02] MEDS ORDERED: ondansetron 4mg rapidly disintigrating tab PO STA (22:18)
[2021-10-02] MEDS ORDERED: magnesium hydroxide 30ml (MOM) UD suspension PO ONE (22:20)
[2021-10-02] MEDS ORDERED: LIDOcaine Viscous 15ml cup MM ONE (22:20)
[2021-10-02] MEDS ORDERED: ONDA4TAB12 PO (23:54)
[2021-10-03 00:05] VITALS: BP 137/87
[2021-10-03] MEDS ORDERED: CEPH-585 PO (04:38)
== END 2021-10-03 00:10 | disposition home or self-care (01) ==
LOC: ER 20:30
DX: K29.20 Alcoholic gastritis without bleeding (principal); F10.10 Alcohol abuse, uncomplicated; R11.0 Nausea; K22.4 Dyskinesia of esophagus; I10 Essential (primary) hypertension; K21.9 Gastro-esophageal reflux disease without esophagitis; F41.9 Anxiety disorder, unspecified; F32.A Depression, unspecified; Z87.01 Personal history of pneumonia (recurrent); Z85.41 Personal history of malignant neoplasm of cervix uteri; Z98.890 Other specified postprocedural states; Z72.89 Other problems related to lifestyle; Z59.00 Homelessness unspecified; Z79.899 Other long term (current) drug therapy; Y90.9 Presence of alcohol in blood, level not specified
CPT/HCPCS: 93005; 99284

== ENCOUNTER 2021-10-03 01:30 | Emergency (ER) | payer BC ==
[~2021-10-03] VITALS: Ht 157.5 cm; Wt 64.5 kg
[~2021-10-03 01:30] MED LIST changes: +ONDA4TAB12 PO
[2021-10-03 02:15] LABS: BASOPHILS % (AUTO) 0.4 % (0-1); EOSINOPHILS % (AUTO) 0.1 % (0-6); HEMATOCRIT 24.9 % (35.0-45.0); LYMPHOCYTES # (AUTO) 0.9 X10'3 (1.1-4.8); MEAN CORPUSCULAR HEMOGLOBIN 23.9 PG (27.0-31.0); MEAN CORPUSCULAR VOLUME 74.6 FL (78-98); MEAN PLATELET VOLUME 5.9 FL (7.4-10.4); MONOCYTES # (AUTO) 0.7 X10'3 (0-0.9); MONOCYTES % (AUTO) 9.8 % (2-12); NEUTROPHILS # (AUTO) 5.4 X10'3 (1.8-7.7); NEUTROPHILS % (AUTO) 76.7 % (42-75); PLATELET COUNT 526 X10'3 (140-440); RED BLOOD COUNT 3.34 X10'6 (4.20-5.60); RED CELL DISTRIBUTION WIDTH 21.9 % (11.5-14.5)
[2021-10-03 02:24] LABS: ALANINE AMINOTRANSFERASE 19 U/L (12-78); ALBUMIN 2.6 G/DL (3.4-5.0); ALBUMIN/GLOBULIN RATIO 0.5 (1.1-1.5); ALKALINE PHOSPHATASE 109 IU/L (46-116); ANION GAP 11 (8-16); ASPARTATE AMINO TRANSFERASE 20 U/L (10-37); BILIRUBIN,TOTAL 0.1 MG/DL (0.1-1.0); BLOOD UREA NITROGEN 17 MG/DL (7-18); BUN/CREATININE RATIO 21.5 (6.6-38.0); CALCIUM 8.9 MG/DL (8.5-10.1); CHLORIDE 93 MMOL/L (99-107); CREATININE 0.79 MG/DL (0.40-0.90); GLUCOSE 104 MG/DL (70-104); LIPASE < 50 U/L (73-393); SODIUM 137 MMOL/L (135-145); TOTAL CARBON DIOXIDE 32.9 MMOL/L (24-32); TOTAL PROTEIN 7.4 G/DL (6.4-8.2); eGFR 75 ML/MIN
[2021-10-03 02:30] LABS: POTASSIUM 2.8 MMOL/L (3.5-5.1)
[2021-10-03] MEDS ORDERED: potassium Cl 20 mEq SR tablet PO ONE (02:30)
[2021-10-03] MEDS ORDERED: pantoprazole 40MG/D5 100ML BAG 100 ML IV ONE (02:30)
[2021-10-03] MEDS ORDERED: normal saline 1000ML IV soln IVB ONE (02:30)
[2021-10-03] MEDS ORDERED: ondansetron/PF 4mg/2ml inj IV ONE (02:30)
[2021-10-03] MEDS ORDERED: pantoprazole 40MG/NS 100ML BAG 100 ML IV ONE (02:35)
[2021-10-03 02:41] LABS: ETHANOL 0.066 GM/DL (0.0-0.010)
[2021-10-03] MEDS: potassium CL 10mEq/100ml bag 100 ML IV SCH ×2 (03:14→04:55)
[2021-10-03 04:14] LABS: CLARITY,URINE CLOUDY (Clear); COLOR,URINE YELLOW (Yellow); GLUCOSE, URINE NEGATIVE (Neg); KETONES,URINE NEGATIVE (Neg); LEUKOCYTE ESTERASE ,URINE SMALL (Neg); NITRITES, URINE POSITIVE (Neg); OCCULT BLOOD,URINE MODERATE (Neg); PROTEIN,URINE NEGATIVE (Neg); UROBILINOGEN,URINE 0.2 E.U/dL (0.2-1.0)
[2021-10-03 04:20] LABS: UA COLLECTION TYPE CLN CATCH MIDSTREAM
[2021-10-03 04:22] LABS: BACTERIA,URINE 4+ /HPF (Neg); RBC,URINE 0-2 /HPF (0-2); SQUAMOUS EPITHELIAL CELL,UR FEW /LPF (FEW); WBC,URINE 30-50 /HPF (0-4)
[2021-10-03] MEDS ORDERED: CefTRIAXone/D5W-Rocephin 1gm 50 ML IV ONE (04:30)
[2021-10-03] MEDS ORDERED: CEPH-585 PO (04:38)
[2021-10-03 04:41] LABS: TOTAL CELLS COUNTED 100
[2021-10-03 04:46] LABS: ANISOCYTOSIS 3+; HYPOCHROMASIA 1+; MICROCYTOSIS 1+; PLATELET ESTIMATE INCREASED; POLYCHROMASIA FEW; TARGET CELLS FEW
[2021-10-03 04:47] LABS: LARGE PLATELETS FEW
[2021-10-03 06:49] VITALS: BP 137/88
--- NOTE | 2021-10-09 15:41 | NUR ---
PT RETURND A CALL THAT WAS PLACED ON 10.08 REGARDING RECENT VISIT. INFORMED THAT RX NEEDS TO BE CHANGED TO BACTTIM [facility]. PT REQUESTED THAT RX BE CALLED INTO [facility]. BACTRIM DS, 1 PO BID x7 DAYS WAS CALLED TO [facility] REQUESTED.
== END 2021-10-03 06:50 | disposition home or self-care (01) ==
LOC: ER 01:31
DX: S52.602A Unspecified fracture of lower end of left ulna, initial encounter for closed fracture (principal); K29.20 Alcoholic gastritis without bleeding; R11.10 Vomiting, unspecified; N39.0 Urinary tract infection, site not specified; E87.6 Hypokalemia; I10 Essential (primary) hypertension; K21.9 Gastro-esophageal reflux disease without esophagitis; F41.9 Anxiety disorder, unspecified; F32.A Depression, unspecified; Z87.01 Personal history of pneumonia (recurrent); Z85.41 Personal history of malignant neoplasm of cervix uteri; Z98.890 Other specified postprocedural states; Z72.89 Other problems related to lifestyle; Z59.00 Homelessness unspecified; X58.XXXA Exposure to other specified factors, initial encounter; Y93.89 Activity, other specified; Y92.89 Other specified places as the place of occurrence of the external cause; Y99.8 Other external cause status
CPT/HCPCS: 29125; 36415; 73090; 80053; 80320; 81001; 83690; 84132; 85007; 85025; 87077; 87088; 87186; 96365; 96366; 96367; 96375; 99284; C9113; J0696; J2405; J3480; J7030

== ENCOUNTER 2021-10-13 13:27 | Emergency (ER) | payer BC ==
[~2021-10-13] VITALS: Ht 157.5 cm; Wt 61.0 kg
[~2021-10-13 13:27] MED LIST changes: +CEPH-585 PO
[2021-10-13 13:30] VITALS: BP 150/100
[2021-10-13] MEDS ORDERED: LIDO20SO24 PO (15:04)
[2021-10-13] MEDS ORDERED: SUCR1TAB34 PO (15:04)
[2021-10-13] MEDS ORDERED: sucralfate 1 gm tablet PO ONE (15:55)
== END 2021-10-13 16:08 | disposition home or self-care (01) ==
LOC: ER 13:28
DX: K20.90 Esophagitis, unspecified without bleeding (principal); I10 Essential (primary) hypertension; K21.9 Gastro-esophageal reflux disease without esophagitis; Z87.01 Personal history of pneumonia (recurrent); Z87.19 Personal history of other diseases of the digestive system; Z86.19 Personal history of other infectious and parasitic diseases; Z87.410 Personal history of cervical dysplasia; Z98.890 Other specified postprocedural states; Z72.89 Other problems related to lifestyle; Z59.00 Homelessness unspecified; Z79.899 Other long term (current) drug therapy
CPT/HCPCS: 99283

== ENCOUNTER 2022-01-10 10:08 | Emergency (ER) | payer BC ==
[~2022-01-10] VITALS: Ht 157.5 cm; Wt 61.4 kg
[~2022-01-10 10:08] MED LIST changes: -CEPH-585 PO; +FERR324T4 PO; +FOLI1TAB27 PO; -MAGN400C PO; -MULT-1085 PO; -ONDA4TAB12 PO; -PANT20TA2 PO; -THIA50TA10 PO; +thiamine tablet PO
[2022-01-10] MEDS ORDERED: ondansetron 4mg rapidly disintigrating tab PO STA (10:48)
[2022-01-10] MEDS ORDERED: LIDOcaine Viscous 15ml cup MM ONE (10:50)
[2022-01-10] MEDS ORDERED: famotidine 20mg tablet PO ONE (10:50)
[2022-01-10 11:05] LABS: BASOPHILS # (AUTO) 0.1 X10'3 (0-0.2); BASOPHILS % (AUTO) 0.8 % (0-1); EOSINOPHILS % (AUTO) 0.4 % (0-6); HEMATOCRIT 30.7 % (35.0-45.0); HEMOGLOBIN 9.5 g/dl (12.0-16.0); LYMPHOCYTES # (AUTO) 0.8 X10'3 (1.1-4.8); MEAN CORPUSCULAR HEMOGLOBIN 23.3 PG (27.0-31.0); MEAN CORPUSCULAR HGB CONC 30.9 g/dL (33.0-36.5); MEAN CORPUSCULAR VOLUME 75.6 FL (78-98); MEAN PLATELET VOLUME 6.3 FL (7.4-10.4); MONOCYTES # (AUTO) 0.7 X10'3 (0-0.9); MONOCYTES % (AUTO) 9.6 % (2-12); NEUTROPHILS # (AUTO) 5.9 X10'3 (1.8-7.7); NEUTROPHILS % (AUTO) 78.2 % (42-75); PLATELET COUNT 526 X10'3 (140-440); RED BLOOD COUNT 4.07 X10'6 (4.20-5.60); RED CELL DISTRIBUTION WIDTH 19.6 % (11.5-14.5); WHITE BLOOD COUNT 7.6 X10'3 (4.5-11.0)
[2022-01-10 11:21] LABS: ANISOCYTOSIS 2+; MICROCYTOSIS 1+; PLATELET ESTIMATE INCREASED
[2022-01-10 11:22] LABS: ELLIPTOCYTES FEW
[2022-01-10 11:25] LABS: ALANINE AMINOTRANSFERASE 17 U/L (12-78); ALBUMIN 3.1 G/DL (3.4-5.0); ALBUMIN/GLOBULIN RATIO 0.7 (1.1-1.5); ALKALINE PHOSPHATASE 82 IU/L (46-116); ANION GAP 12 (8-16); ASPARTATE AMINO TRANSFERASE 16 U/L (10-37); BILIRUBIN,TOTAL 0.5 MG/DL (0.1-1.0); BLOOD UREA NITROGEN 8 MG/DL (7-18); CALCIUM 8.4 MG/DL (8.5-10.1); CHLORIDE 100 MMOL/L (99-107); CREATININE 0.73 MG/DL (0.40-0.90); GLUCOSE 92 MG/DL (70-104); LIPASE 56 U/L (73-393); POTASSIUM 3.6 MMOL/L (3.5-5.1); SODIUM 137 MMOL/L (135-145); TOTAL CARBON DIOXIDE 25.2 MMOL/L (24-32); TOTAL PROTEIN 7.6 G/DL (6.4-8.2); eGFR 82 ML/MIN
[2022-01-10 12:13] VITALS: BP 148/99
[2022-01-10] MEDS ORDERED: FAMO20TA44 PO (12:24)
[2022-01-10] MEDS ORDERED: ONDA4TAB12 PO (12:24)
[2022-01-10] MEDS ORDERED: FERR325T28 PO (12:24)
== END 2022-01-10 12:37 | disposition home or self-care (01) ==
LOC: ER 10:08
DX: K20.90 Esophagitis, unspecified without bleeding (principal); I10 Essential (primary) hypertension; K21.9 Gastro-esophageal reflux disease without esophagitis; Z87.19 Personal history of other diseases of the digestive system; Z87.01 Personal history of pneumonia (recurrent); Z87.410 Personal history of cervical dysplasia; Z98.890 Other specified postprocedural states; Z59.00 Homelessness unspecified; Z72.89 Other problems related to lifestyle; Z79.899 Other long term (current) drug therapy
CPT/HCPCS: 36415; 71046; 80053; 83690; 84484; 85008; 85025; 93005; 99285

== ENCOUNTER 2022-02-10 06:54 | Emergency (ER) | payer BC ==
[~2022-02-10] VITALS: Ht 157.5 cm; Wt 61.4 kg
[~2022-02-10 06:54] MED LIST changes: +FAMO20TA44 PO; +FERR325T28 PO; +ONDA4TAB12 PO
[2022-02-10 06:59] VITALS: BP 124/86
[2022-02-10] MEDS ORDERED: ibuprofen tablet 400 MG TABLET PO ONE (08:50)
== END 2022-02-10 09:18 | disposition home or self-care (01) ==
LOC: ER 06:54
DX: M25.572 Pain in left ankle and joints of left foot (principal); K21.9 Gastro-esophageal reflux disease without esophagitis; I10 Essential (primary) hypertension; F31.9 Bipolar disorder, unspecified; Z98.890 Other specified postprocedural states; Z79.899 Other long term (current) drug therapy; W01.10XA Fall on same level from slipping, tripping and stumbling with subsequent striking against unspecified object, initial encounter; Y93.89 Activity, other specified; Y92.89 Other specified places as the place of occurrence of the external cause; Y99.8 Other external cause status
CPT/HCPCS: 73610; 99283; A6449

== ENCOUNTER 2022-02-23 14:28 | Emergency (ER) | payer BC ==
[~2022-02-23] VITALS: Ht 157.5 cm; Wt 61.4 kg
[~2022-02-23 14:28] MED LIST changes: -FERR325T28 PO
[2022-02-23 15:32] LABS: BASOPHILS # (AUTO) 0.1 X10'3 (0-0.2); EOSINOPHILS % (AUTO) 0.3 % (0-6); HEMATOCRIT 35.2 % (35.0-45.0); HEMOGLOBIN 11.3 g/dl (12.0-16.0); LYMPHOCYTES # (AUTO) 0.7 X10'3 (1.1-4.8); LYMPHOCYTES % (AUTO) 12.7 % (21-51); MEAN CORPUSCULAR HEMOGLOBIN 26.2 PG (27.0-31.0); MEAN PLATELET VOLUME 6.4 FL (7.4-10.4); MONOCYTES # (AUTO) 0.7 X10'3 (0-0.9); MONOCYTES % (AUTO) 13.4 % (2-12); NEUTROPHILS # (AUTO) 3.8 X10'3 (1.8-7.7); NEUTROPHILS % (AUTO) 72.6 % (42-75); PLATELET COUNT 433 X10'3 (140-440); RED BLOOD COUNT 4.29 X10'6 (4.20-5.60); WHITE BLOOD COUNT 5.3 X10'3 (4.5-11.0)
[2022-02-23 15:48] LABS: ALANINE AMINOTRANSFERASE 26 U/L (12-78); ALBUMIN 3.4 G/DL (3.4-5.0); ALBUMIN/GLOBULIN RATIO 0.7 (1.1-1.5); ALKALINE PHOSPHATASE 95 IU/L (46-116); ANION GAP 12 (8-16); ASPARTATE AMINO TRANSFERASE 28 U/L (10-37); BILIRUBIN,TOTAL 0.2 MG/DL (0.1-1.0); BLOOD UREA NITROGEN 10 MG/DL (7-18); BUN/CREATININE RATIO 8.5 (6.6-38.0); CALCIUM 9.2 MG/DL (8.5-10.1); CHLORIDE 96 MMOL/L (99-107); CREATININE 1.18 MG/DL (0.40-0.90); GLUCOSE 91 MG/DL (70-104); POTASSIUM 3.7 MMOL/L (3.5-5.1); SODIUM 135 MMOL/L (135-145); TOTAL CARBON DIOXIDE 27.5 MMOL/L (24-32); TOTAL PROTEIN 8.3 G/DL (6.4-8.2); eGFR 47 ML/MIN
[2022-02-23 16:09] LABS: PLATELET ESTIMATE NORMAL; TOTAL CELLS COUNTED 100
[2022-02-23 16:10] LABS: ANISOCYTOSIS 3+; POLYCHROMASIA FEW
--- NOTE | 2022-02-23 17:53 | NUR ---
Cristy Foley at bedside.
--- NOTE | 2022-02-23 17:53 | NUR ---
received pt in bed 1.
[2022-02-23] MEDS ORDERED: normal saline 1000ML IV soln IVB ONE (19:05)
[2022-02-23 21:05] VITALS: BP 147/94
== END 2022-02-23 21:07 | disposition home or self-care (01) ==
LOC: ER 14:29
DX: I95.1 Orthostatic hypotension (principal); K21.9 Gastro-esophageal reflux disease without esophagitis; F31.9 Bipolar disorder, unspecified; Z79.899 Other long term (current) drug therapy; Z98.890 Other specified postprocedural states; Z90.49 Acquired absence of other specified parts of digestive tract; Z87.19 Personal history of other diseases of the digestive system
CPT/HCPCS: 36415; 71045; 80053; 83880; 84484; 85007; 85025; 93005; 96360; 99285; J7030

== ENCOUNTER 2022-02-25 09:08 | Emergency (ER) | payer BC ==
[~2022-02-25] VITALS: Ht 157.5 cm; Wt 61.4 kg
[2022-02-25 10:37] LABS: BASOPHILS % (AUTO) 0.7 % (0-1); EOSINOPHILS % (AUTO) 0.8 % (0-6); HEMATOCRIT 39.8 % (35.0-45.0); HEMOGLOBIN 12.7 g/dl (12.0-16.0); LYMPHOCYTES # (AUTO) 0.9 X10'3 (1.1-4.8); LYMPHOCYTES % (AUTO) 19.2 % (21-51); MEAN CORPUSCULAR HEMOGLOBIN 26.2 PG (27.0-31.0); MEAN CORPUSCULAR HGB CONC 31.8 g/dL (33.0-36.5); MEAN CORPUSCULAR VOLUME 82.3 FL (78-98); MEAN PLATELET VOLUME 6.8 FL (7.4-10.4); MONOCYTES # (AUTO) 0.7 X10'3 (0-0.9); MONOCYTES % (AUTO) 13.8 % (2-12); NEUTROPHILS # (AUTO) 3.2 X10'3 (1.8-7.7); NEUTROPHILS % (AUTO) 65.5 % (42-75); PLATELET COUNT 331 X10'3 (140-440); RED BLOOD COUNT 4.84 X10'6 (4.20-5.60); RED CELL DISTRIBUTION WIDTH 25.6 % (11.5-14.5); WHITE BLOOD COUNT 4.9 X10'3 (4.5-11.0)
[2022-02-25 10:47] LABS: ANISOCYTOSIS 3+; PLATELET ESTIMATE NORMAL
[2022-02-25 10:52] LABS: ALANINE AMINOTRANSFERASE 25 U/L (12-78); ALBUMIN 3.6 G/DL (3.4-5.0); ALBUMIN/GLOBULIN RATIO 0.7 (1.1-1.5); ALKALINE PHOSPHATASE 100 IU/L (46-116); ANION GAP 12 (8-16); ASPARTATE AMINO TRANSFERASE 26 U/L (10-37); BILIRUBIN,TOTAL 0.3 MG/DL (0.1-1.0); BLOOD UREA NITROGEN 17 MG/DL (7-18); BUN/CREATININE RATIO 16.3 (6.6-38.0); CALCIUM 9.4 MG/DL (8.5-10.1); CHLORIDE 96 MMOL/L (99-107); CREATININE 1.04 MG/DL (0.40-0.90); GLUCOSE 97 MG/DL (70-104); POTASSIUM 3.1 MMOL/L (3.5-5.1); SODIUM 138 MMOL/L (135-145); TOTAL PROTEIN 8.8 G/DL (6.4-8.2); eGFR 54 ML/MIN
[2022-02-25] MEDS ORDERED: LIDOcaine Viscous 15ml cup MM ONE (14:05)
[2022-02-25] MEDS ORDERED: POTASSIUM BICARB 20meq eff tab 20 MEQ TABLET.EFF PO ONE (14:05)
[2022-02-25] MEDS ORDERED: mag hydrox/Alum hydrox/simeth 30ml oral suspension PO ONE (14:05)
[2022-02-25 14:15] VITALS: BP 129/94
[2022-02-25 14:15] LABS: MAGNESIUM 1.8 MG/DL (1.5-2.4)
== END 2022-02-25 15:01 | disposition home or self-care (01) ==
LOC: ER 09:08
DX: K22.6 Gastro-esophageal laceration-hemorrhage syndrome (principal); I10 Essential (primary) hypertension; F31.9 Bipolar disorder, unspecified; Z87.19 Personal history of other diseases of the digestive system; Z79.899 Other long term (current) drug therapy; Z90.49 Acquired absence of other specified parts of digestive tract; Z98.890 Other specified postprocedural states
CPT/HCPCS: 36415; 80053; 83735; 85008; 85025; 93005; 99284

== ENCOUNTER 2022-03-29 13:24 | Emergency (ER) | payer BC ==
[~2022-03-29] VITALS: Ht 157.5 cm; Wt 59.1 kg
[2022-03-29 13:43] VITALS: BP 125/99
== END 2022-03-29 18:00 | disposition left against medical advice (07) ==
LOC: ER 13:25
DX: R13.10 Dysphagia, unspecified (principal); Z53.21 Procedure and treatment not carried out due to patient leaving prior to being seen by health care provider

== ENCOUNTER 2022-04-04 07:36 | Emergency (ER) | payer BC ==
[~2022-04-04] VITALS: Ht 157.5 cm; Wt 61.4 kg
[2022-04-04] MEDS ORDERED: normal saline 1000ML IV soln IVB ONE (08:20)
[2022-04-04] MEDS ORDERED: LIDOcaine Viscous 15ml cup MM ONE (11:50)
[2022-04-04] MEDS ORDERED: sucralfate 1 gm tablet PO ONE (11:50)
[2022-04-04] MEDS ORDERED: mag hydrox/Alum hydrox/simeth 30ml oral suspension PO ONE (11:50)
[2022-04-04 12:03] VITALS: BP 143/110
[2022-04-04] MEDS ORDERED: BARIUM SULFATE 700 MG TABLET PO ONE (14:00)
[2022-04-04] MEDS ORDERED: BARIUM SULFATE 340 ML SUSP.RECON***PROCEDURE AREA ONLY**DONT ENTER PO ONE (14:00)
== END 2022-04-04 12:08 | disposition home or self-care (01) ==
LOC: ER 07:37
DX: K44.9 Diaphragmatic hernia without obstruction or gangrene (principal); K21.9 Gastro-esophageal reflux disease without esophagitis; I10 Essential (primary) hypertension; Z87.01 Personal history of pneumonia (recurrent); Z86.19 Personal history of other infectious and parasitic diseases; Z87.410 Personal history of cervical dysplasia; Z98.890 Other specified postprocedural states; Z59.00 Homelessness unspecified; Z72.89 Other problems related to lifestyle
CPT/HCPCS: 74220; 96360; 96361; 99285; J7030

== ENCOUNTER 2022-06-13 10:01 | Emergency (ER) | payer BC ==
[~2022-06-13] VITALS: Ht 157.5 cm; Wt 61.4 kg
[2022-06-13 10:23] VITALS: BP 144/108
[2022-06-13] MEDS ORDERED: LIDO20SO16 PO (11:01)
[2022-06-13] MEDS ORDERED: SUCR1TAB34 PO (11:01)
== END 2022-06-13 11:16 | disposition home or self-care (01) ==
LOC: ER 10:01
DX: K22.70 Barrett's esophagus without dysplasia (principal); I10 Essential (primary) hypertension; K21.9 Gastro-esophageal reflux disease without esophagitis; Z98.890 Other specified postprocedural states; Z59.00 Homelessness unspecified
CPT/HCPCS: 99283

== ENCOUNTER 2022-06-19 21:23 | Emergency (ER) | payer BC ==
[~2022-06-19] VITALS: Ht 157.5 cm; Wt 61.4 kg
[~2022-06-19 21:23] MED LIST changes: +LIDO20SO16 PO; +SUCR1TAB34 PO
--- NOTE | 2022-06-19 23:45 | NUR ---
IV TO LEFT AC REMOVED INTACT . PT TOLERATED WELL .
[2022-06-20] MEDS ORDERED: normal saline 1000ML IV soln IVB ONE ×2 (01:15→05:15)
[2022-06-20 02:25] LABS: BASOPHILS # (AUTO) 0.1 X10'3 (0-0.2); BASOPHILS % (AUTO) 0.8 % (0-1); EOSINOPHILS # (AUTO) 0.1 X10'3 (0-0.9); EOSINOPHILS % (AUTO) 1.2 % (0-6); HEMATOCRIT 35.1 % (35.0-45.0); HEMOGLOBIN 11.3 g/dl (12.0-16.0); LYMPHOCYTES # (AUTO) 1.5 X10'3 (1.1-4.8); LYMPHOCYTES % (AUTO) 18.4 % (21-51); MEAN CORPUSCULAR HEMOGLOBIN 29.2 PG (27.0-31.0); MEAN CORPUSCULAR HGB CONC 32.1 g/dL (33.0-36.5); MEAN PLATELET VOLUME 7.1 FL (7.4-10.4); MONOCYTES # (AUTO) 0.7 X10'3 (0-0.9); MONOCYTES % (AUTO) 8.7 % (2-12); NEUTROPHILS # (AUTO) 5.6 X10'3 (1.8-7.7); NEUTROPHILS % (AUTO) 70.9 % (42-75); PLATELET COUNT 420 X10'3 (140-440); RED BLOOD COUNT 3.86 X10'6 (4.20-5.60); RED CELL DISTRIBUTION WIDTH 18.8 % (11.5-14.5)
--- NOTE | 2022-06-20 02:48 | NUR ---
UNABLE TO ESTABLISH IV ACCESS TO GIVE ORDERED MEDICATIONS. DR RIOS NOTIFIED. PER DR RIOS HOLD THE IV FLUIDS AND WAIT FOR THE LAB RESULTS.
[2022-06-20 02:50] LABS: ALANINE AMINOTRANSFERASE 15 U/L (12-78); ALBUMIN 2.9 G/DL (3.4-5.0); ALBUMIN/GLOBULIN RATIO 0.7 (1.1-1.5); ALKALINE PHOSPHATASE 90 IU/L (46-116); ANION GAP 11 (8-16); ASPARTATE AMINO TRANSFERASE 18 U/L (10-37); BILIRUBIN,TOTAL 0.4 MG/DL (0.1-1.0); BLOOD UREA NITROGEN 8 MG/DL (7-18); BUN/CREATININE RATIO 9.9 (6.6-38.0); CALCIUM 8.9 MG/DL (8.5-10.1); CHLORIDE 93 MMOL/L (99-107); CREATININE 0.81 MG/DL (0.40-0.90); ETHANOL 0.078 GM/DL (0.0-0.010); GLUCOSE 81 MG/DL (70-104); SODIUM 134 MMOL/L (135-145); TOTAL CARBON DIOXIDE 30.2 MMOL/L (24-32); TOTAL PROTEIN 7.3 G/DL (6.4-8.2); eGFR 73 ML/MIN
[2022-06-20 02:52] LABS: POTASSIUM 2.6 MMOL/L (3.5-5.1)
[2022-06-20] MEDS ORDERED: POTASSIUM BICARB 20meq eff tab 20 MEQ TABLET.EFF PO ONE (02:55)
[2022-06-20] MEDS ORDERED: POTASSIUM BICARB 20meq eff tab 20 MEQ TABLET.EFF PO SCH (02:55)
[2022-06-20 03:14] LABS: CLARITY,URINE CLEAR (Clear); COLOR,URINE YELLOW (Yellow); GLUCOSE, URINE NEGATIVE (Neg); KETONES,URINE NEGATIVE (Neg); LEUKOCYTE ESTERASE ,URINE NEGATIVE (Neg); NITRITES, URINE NEGATIVE (Neg); OCCULT BLOOD,URINE SMALL (Neg); PH,URINE 7.5 (4.8-8.0); PROTEIN,URINE NEGATIVE (Neg); UROBILINOGEN,URINE 0.2 E.U/dL (0.2-1.0)
[2022-06-20 03:16] LABS: URINE HCG NEGATIVE (NEG)
[2022-06-20 03:28] LABS: URINE AMPHETAMINE SCREEN NEGATIVE (Neg); URINE BARBITUATE SCREEN NEGATIVE (Neg); URINE BENZODIAZEPINES SCREEN NEGATIVE (Neg); URINE CANNABINOID SCREEN NEGATIVE (Neg); URINE COCAINE SCREEN NEGATIVE (Neg); URINE METHADONE SCREEN NEGATIVE (Neg); URINE OPIATE SCREEN NEGATIVE (Neg); URINE PHENCYCLIDINE SCREEN NEGATIVE (Neg)
[2022-06-20 03:34] LABS: ANISOCYTOSIS 2+; PLATELET ESTIMATE NORMAL
[2022-06-20 03:36] LABS: UA COLLECTION TYPE NON-SPECIFIED
[2022-06-20] MEDS ORDERED: potassium Cl 20 mEq SR tablet PO STA (03:41)
[2022-06-20 03:42] LABS: BACTERIA,URINE NONE SEEN /HPF (Neg); RBC,URINE 0-2 /HPF (0-2); SQUAMOUS EPITHELIAL CELL,UR NONE SEEN /LPF (FEW); WBC,URINE 0-4 /HPF (0-4)
--- NOTE | 2022-06-20 04:22 | NUR ---
PT VOMITING AFTER RECIEVING EFFER-K. PT ABLE TO TOLERATE K-JANETH.
[2022-06-20] MEDS ORDERED: potassium Cl 40MEQ/1/2NS 520ml 520 ML IV PRN (05:05)
[2022-06-20] MEDS ORDERED: magnesium 4gm in 100ml NS 100 ML IV ONE (05:05)
--- NOTE | 2022-06-20 08:00 | NUR ---
Pt resting well but is very forgetful. Pt is not suicidal at this time. Pt states that she just wanted to check in because she just drinks to much. Pt stated that she does not feel safe at home because she will just start drinking again.
[2022-06-20 09:09] LABS: ALBUMIN 2.6 G/DL (3.4-5.0); ANION GAP 8 (8-16); BLOOD UREA NITROGEN 6 MG/DL (7-18); BUN/CREATININE RATIO 8.7 (6.6-38.0); CALCIUM 8.6 MG/DL (8.5-10.1); CHLORIDE 98 MMOL/L (99-107); CREATININE 0.69 MG/DL (0.40-0.90); GLUCOSE 82 MG/DL (70-104); SODIUM 133 MMOL/L (135-145); TOTAL CARBON DIOXIDE 27.4 MMOL/L (24-32); eGFR 87 ML/MIN
[2022-06-20 09:10] LABS: POTASSIUM 4.5 MMOL/L (3.5-5.1)
[2022-06-20] MEDS ORDERED: ondansetron/PF 4mg/2ml inj IV ONE (12:00)
[2022-06-20] MEDS ORDERED: mag hydrox/Alum hydrox/simeth 30ml oral suspension PO ONE (13:25)
[2022-06-20] MEDS ORDERED: pantoprazole 40mg Tablet.DR PO ONE (13:25)
[2022-06-20] MEDS ORDERED: famotidine 20mg tablet PO ONE (13:25)
[2022-06-20] MEDS ORDERED: LIDOcaine Viscous 15ml cup MM ONE (13:25)
[2022-06-20 15:03] VITALS: BP 135/87
== END 2022-06-20 15:06 ==
LOC: ER 21:24
DX: F10.129 Alcohol abuse with intoxication, unspecified (principal); Z20.822 Contact with and (suspected) exposure to COVID-19; R44.1 Visual hallucinations; R44.2 Other hallucinations; I10 Essential (primary) hypertension; K21.9 Gastro-esophageal reflux disease without esophagitis; F41.9 Anxiety disorder, unspecified; F32.A Depression, unspecified; Z87.01 Personal history of pneumonia (recurrent); Z85.41 Personal history of malignant neoplasm of cervix uteri; Z98.890 Other specified postprocedural states; Z72.89 Other problems related to lifestyle; Z59.00 Homelessness unspecified; Z79.899 Other long term (current) drug therapy; Y90.0 Blood alcohol level of less than 20 mg/100 ml
CPT/HCPCS: 36415; 80048; 80053; 80305; 80320; 81001; 81025; 84443; 85008; 85025; 87811; 93005; 96365; 96366; 96375; 99285; J2405; J3475; J7030

== ENCOUNTER 2022-06-21 20:41 | Emergency (ER) | payer BC ==
[~2022-06-21] VITALS: Ht 162.6 cm; Wt 58.1 kg
[2022-06-21] MEDS ORDERED: ondansetron/PF 4mg/2ml inj IV ONE (23:20)
[2022-06-21] MEDS ORDERED: normal saline 1000ML IV soln IVB ONE (23:20)
[2022-06-21 23:25] VITALS: BP 110/81
[2022-06-22] LABS: BASOPHILS # (AUTO) 0.1 X10'3 (0-0.2); BASOPHILS % (AUTO) 1.3 % (0-1); EOSINOPHILS # (AUTO) 0.1 X10'3 (0-0.9); EOSINOPHILS % (AUTO) 1.4 % (0-6); HEMATOCRIT 37.5 % (35.0-45.0); HEMOGLOBIN 12.1 g/dl (12.0-16.0); LYMPHOCYTES # (AUTO) 1.6 X10'3 (1.1-4.8); LYMPHOCYTES % (AUTO) 28.7 % (21-51); MEAN CORPUSCULAR HEMOGLOBIN 30.2 PG (27.0-31.0); MEAN CORPUSCULAR HGB CONC 32.3 g/dL (33.0-36.5); MEAN CORPUSCULAR VOLUME 93.5 FL (78-98); MEAN PLATELET VOLUME 7.1 FL (7.4-10.4); MONOCYTES # (AUTO) 0.4 X10'3 (0-0.9); MONOCYTES % (AUTO) 7.4 % (2-12); NEUTROPHILS # (AUTO) 3.3 X10'3 (1.8-7.7); NEUTROPHILS % (AUTO) 61.2 % (42-75); PLATELET COUNT 332 X10'3 (140-440); RED BLOOD COUNT 4.01 X10'6 (4.20-5.60); RED CELL DISTRIBUTION WIDTH 19.4 % (11.5-14.5); WHITE BLOOD COUNT 5.5 X10'3 (4.5-11.0)
[2022-06-22 00:06] LABS: ALANINE AMINOTRANSFERASE 16 U/L (12-78); ALBUMIN 2.8 G/DL (3.4-5.0); ALBUMIN/GLOBULIN RATIO 0.6 (1.1-1.5); ALKALINE PHOSPHATASE 84 IU/L (46-116); ANION GAP 13 (8-16); ASPARTATE AMINO TRANSFERASE 25 U/L (10-37); BILIRUBIN,TOTAL 0.2 MG/DL (0.1-1.0); BLOOD UREA NITROGEN 6 MG/DL (7-18); BUN/CREATININE RATIO 7.5 (6.6-38.0); CALCIUM 8.6 MG/DL (8.5-10.1); CHLORIDE 99 MMOL/L (99-107); GLUCOSE 76 MG/DL (70-104); SODIUM 134 MMOL/L (135-145); TOTAL CARBON DIOXIDE 22.2 MMOL/L (24-32); TOTAL PROTEIN 7.3 G/DL (6.4-8.2); eGFR 74 ML/MIN
[2022-06-22 00:07] LABS: POTASSIUM 3.4 MMOL/L (3.5-5.1)
[2022-06-22] MEDS ORDERED: ondansetron 4mg rapidly disintigrating tab PO ONE (00:25)
[2022-06-22 00:30] LABS: CLARITY,URINE SLIGHTLY CLOUDY (Clear); COLOR,URINE YELLOW (Yellow); GLUCOSE, URINE NEGATIVE (Neg); KETONES,URINE NEGATIVE (Neg); LEUKOCYTE ESTERASE ,URINE SMALL (Neg); NITRITES, URINE NEGATIVE (Neg); OCCULT BLOOD,URINE TRACE-INTACT (Neg); PROTEIN,URINE NEGATIVE (Neg); UROBILINOGEN,URINE 0.2 E.U/dL (0.2-1.0)
[2022-06-22 00:38] LABS: UA COLLECTION TYPE CLN CATCH MIDSTREAM
[2022-06-22 00:39] LABS: BACTERIA,URINE 4+ /HPF (Neg); RBC,URINE 0-2 /HPF (0-2); SQUAMOUS EPITHELIAL CELL,UR MANY /LPF (FEW)
[2022-06-22 00:42] LABS: YEAST FEW /HPF (NEGATIVE)
[2022-06-22 00:59] LABS: URINE AMPHETAMINE SCREEN POSITIVE (Neg); URINE BARBITUATE SCREEN NEGATIVE (Neg); URINE BENZODIAZEPINES SCREEN NEGATIVE (Neg); URINE CANNABINOID SCREEN NEGATIVE (Neg); URINE COCAINE SCREEN NEGATIVE (Neg); URINE METHADONE SCREEN NEGATIVE (Neg); URINE OPIATE SCREEN NEGATIVE (Neg); URINE PHENCYCLIDINE SCREEN NEGATIVE (Neg)
== END 2022-06-22 05:00 | disposition home or self-care (01) ==
LOC: ER 20:43
DX: S00.80XA Unspecified superficial injury of other part of head, initial encounter (principal); K21.9 Gastro-esophageal reflux disease without esophagitis; F41.9 Anxiety disorder, unspecified; I10 Essential (primary) hypertension; Z79.899 Other long term (current) drug therapy; W18.39XA Other fall on same level, initial encounter; Y93.89 Activity, other specified; Y92.89 Other specified places as the place of occurrence of the external cause; Y99.8 Other external cause status
CPT/HCPCS: 36415; 70450; 80053; 80305; 80320; 81001; 85025; 99284

== ENCOUNTER 2022-06-23 18:24 | Emergency (ER) | payer BC ==
[~2022-06-23] VITALS: Ht 157.5 cm; Wt 54.5 kg
[2022-06-23 18:52] VITALS: BP 108/80
[2022-06-23 19:33] LABS: ALANINE AMINOTRANSFERASE 15 U/L (12-78); ALBUMIN/GLOBULIN RATIO 0.6 (1.1-1.5); ALKALINE PHOSPHATASE 88 IU/L (46-116); ANION GAP 15 (8-16); ASPARTATE AMINO TRANSFERASE 21 U/L (10-37); BILIRUBIN,TOTAL 0.4 MG/DL (0.1-1.0); BLOOD UREA NITROGEN 8 MG/DL (7-18); CHLORIDE 102 MMOL/L (99-107); CREATININE 0.73 MG/DL (0.40-0.90); GLUCOSE 79 MG/DL (70-104); POTASSIUM 3.4 MMOL/L (3.5-5.1); SODIUM 139 MMOL/L (135-145); TOTAL CARBON DIOXIDE 22.4 MMOL/L (24-32); TOTAL PROTEIN 7.7 G/DL (6.4-8.2); eGFR 82 ML/MIN
[2022-06-23 20:37] LABS: BASOPHILS # (AUTO) 0.1 X10'3 (0-0.2); EOSINOPHILS # (AUTO) 0.1 X10'3 (0-0.9); HEMOGLOBIN 11.6 g/dl (12.0-16.0); LYMPHOCYTES % (AUTO) 26.7 % (21-51); MEAN CORPUSCULAR HEMOGLOBIN 29.9 PG (27.0-31.0); MEAN CORPUSCULAR HGB CONC 32.4 g/dL (33.0-36.5); MEAN CORPUSCULAR VOLUME 92.4 FL (78-98); MONOCYTES # (AUTO) 0.5 X10'3 (0-0.9); MONOCYTES % (AUTO) 6.3 % (2-12); PLATELET COUNT 429 X10'3 (140-440); RED BLOOD COUNT 3.89 X10'6 (4.20-5.60); RED CELL DISTRIBUTION WIDTH 19.3 % (11.5-14.5); WHITE BLOOD COUNT 7.6 X10'3 (4.5-11.0)
[2022-06-23 21:27] LABS: ANISOCYTOSIS 2+; PLATELET ESTIMATE NORMAL
[2022-06-24] MEDS ORDERED: acetaminophen 325mg tablet PO ONE (02:10)
[2022-06-25] MEDS ORDERED: ONDA4TAB12 PO (23:50)
== END 2022-06-24 02:29 | disposition left against medical advice (07) ==
LOC: ER 18:25
DX: S00.03XA Contusion of scalp, initial encounter (principal); I10 Essential (primary) hypertension; K21.9 Gastro-esophageal reflux disease without esophagitis; Z59.00 Homelessness unspecified; X58.XXXA Exposure to other specified factors, initial encounter; Y93.89 Activity, other specified; Y92.89 Other specified places as the place of occurrence of the external cause; Y99.8 Other external cause status
CPT/HCPCS: 36415; 71045; 80053; 83880; 84484; 85008; 85025; 93005; 99285

== ENCOUNTER 2022-06-25 17:55 | Emergency (ER) | payer BC ==
[~2022-06-25] VITALS: Ht 157.5 cm; Wt 61.4 kg
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
[2022-06-25] MEDS ORDERED: mag hydrox/Alum hydrox/simeth 30ml oral suspension PO ONE (23:50)
[2022-06-25] MEDS ORDERED: LIDOcaine Viscous 15ml cup MM ONE (23:50)
[2022-06-25] MEDS ORDERED: sucralfate 1 gm tablet PO ONE (23:50)
[2022-06-25] MEDS ORDERED: ONDA4TAB12 PO (23:50)
[2022-06-25] MEDS ORDERED: ondansetron 4mg rapidly disintigrating tab PO ONE (23:50)
[2022-06-26 01:56] VITALS: BP 104/73
== END 2022-06-26 02:01 | disposition home or self-care (01) ==
LOC: ER 17:56
DX: S06.0X0A Concussion without loss of consciousness, initial encounter (principal); S00.03XA Contusion of scalp, initial encounter; K22.70 Barrett's esophagus without dysplasia; I10 Essential (primary) hypertension; K21.9 Gastro-esophageal reflux disease without esophagitis; F41.9 Anxiety disorder, unspecified; F32.A Depression, unspecified; Z87.01 Personal history of pneumonia (recurrent); Z85.41 Personal history of malignant neoplasm of cervix uteri; Z98.890 Other specified postprocedural states; Z72.89 Other problems related to lifestyle; Z59.00 Homelessness unspecified; Z79.899 Other long term (current) drug therapy; X58.XXXA Exposure to other specified factors, initial encounter; Y93.89 Activity, other specified; Y92.89 Other specified places as the place of occurrence of the external cause; Y99.8 Other external cause status
CPT/HCPCS: 93005; 99284

== ENCOUNTER 2022-06-26 17:44 | Emergency (ER) | payer BC ==
[~2022-06-26] VITALS: Ht 157.5 cm; Wt 61.0 kg
[2022-06-26 17:48] VITALS: BP 129/98
[2022-06-26] MEDS ORDERED: LIDOcaine Viscous 15ml cup MM ONE (18:35)
[2022-06-26] MEDS ORDERED: sucralfate 1 gm tablet PO ONE (18:35)
[2022-06-26] MEDS ORDERED: mag hydrox/Alum hydrox/simeth 30ml oral suspension PO ONE (18:35)
[2022-06-26] MEDS ORDERED: ondansetron 4mg rapidly disintigrating tab PO ONE (18:35)
== END 2022-06-26 19:00 | disposition home or self-care (01) ==
LOC: ER 17:44
DX: F10.129 Alcohol abuse with intoxication, unspecified (principal); K29.20 Alcoholic gastritis without bleeding; K22.719 Barrett's esophagus with dysplasia, unspecified; I10 Essential (primary) hypertension; K21.9 Gastro-esophageal reflux disease without esophagitis; F41.9 Anxiety disorder, unspecified; F32.A Depression, unspecified; Z87.01 Personal history of pneumonia (recurrent); Z85.41 Personal history of malignant neoplasm of cervix uteri; Z98.890 Other specified postprocedural states; Z72.89 Other problems related to lifestyle; Z59.00 Homelessness unspecified; Z79.899 Other long term (current) drug therapy; Y90.9 Presence of alcohol in blood, level not specified
CPT/HCPCS: 99284

== ENCOUNTER 2022-06-27 17:41 | Emergency (ER) | payer BC ==
[~2022-06-27] VITALS: Ht 154.9 cm; Wt 61.0 kg
[2022-06-27] MEDS ORDERED: ondansetron 4mg rapidly disintigrating tab PO ONE (17:50)
[2022-06-27] MEDS ORDERED: mag hydrox/Alum hydrox/simeth 30ml oral suspension PO ONE (17:50)
[2022-06-27] MEDS ORDERED: LIDOcaine Viscous 15ml cup MM ONE (17:50)
[2022-06-27] MEDS ORDERED: sucralfate 1 gm tablet PO ONE (17:50)
[2022-06-27 17:53] VITALS: BP 164/106
== END 2022-06-27 19:02 | disposition home or self-care (01) ==
LOC: ER 17:42
DX: K29.20 Alcoholic gastritis without bleeding (principal); Z76.5 Malingerer [conscious simulation]; I10 Essential (primary) hypertension; K21.9 Gastro-esophageal reflux disease without esophagitis; F31.9 Bipolar disorder, unspecified; Z79.899 Other long term (current) drug therapy; Z79.1 Long term (current) use of non-steroidal anti-inflammatories (NSAID); Z79.2 Long term (current) use of antibiotics
CPT/HCPCS: 99283

== ENCOUNTER 2022-06-28 07:43 | Emergency (ER) | payer BC ==
[~2022-06-28] VITALS: Ht 157.5 cm; Wt 52.3 kg
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
[2022-06-28 09:32] LABS: BASOPHILS # (AUTO) 0.1 X10'3 (0-0.2); BASOPHILS % (AUTO) 0.7 % (0-1); EOSINOPHILS % (AUTO) 0.2 % (0-6); HEMATOCRIT 32.7 % (35.0-45.0); HEMOGLOBIN 10.9 g/dl (12.0-16.0); LYMPHOCYTES # (AUTO) 0.8 X10'3 (1.1-4.8); LYMPHOCYTES % (AUTO) 10.7 % (21-51); MEAN CORPUSCULAR HEMOGLOBIN 30.4 PG (27.0-31.0); MEAN CORPUSCULAR HGB CONC 33.2 g/dL (33.0-36.5); MEAN CORPUSCULAR VOLUME 91.6 FL (78-98); MEAN PLATELET VOLUME 6.7 FL (7.4-10.4); MONOCYTES # (AUTO) 0.7 X10'3 (0-0.9); MONOCYTES % (AUTO) 9.2 % (2-12); NEUTROPHILS # (AUTO) 5.8 X10'3 (1.8-7.7); NEUTROPHILS % (AUTO) 79.2 % (42-75); PLATELET COUNT 463 X10'3 (140-440); RED BLOOD COUNT 3.57 X10'6 (4.20-5.60); RED CELL DISTRIBUTION WIDTH 18.3 % (11.5-14.5); WHITE BLOOD COUNT 7.3 X10'3 (4.5-11.0)
[2022-06-28 09:46] LABS: ALANINE AMINOTRANSFERASE 15 U/L (12-78); ALBUMIN 2.7 G/DL (3.4-5.0); ALBUMIN/GLOBULIN RATIO 0.7 (1.1-1.5); ALKALINE PHOSPHATASE 79 IU/L (46-116); ASPARTATE AMINO TRANSFERASE 26 U/L (10-37); BILIRUBIN,TOTAL 0.6 MG/DL (0.1-1.0); BLOOD UREA NITROGEN 5 MG/DL (7-18); BUN/CREATININE RATIO 5.9 (6.6-38.0); CALCIUM 8.6 MG/DL (8.5-10.1); CREATININE 0.85 MG/DL (0.40-0.90); GLUCOSE 105 MG/DL (70-104); TOTAL CARBON DIOXIDE 27.9 MMOL/L (24-32); TOTAL PROTEIN 6.8 G/DL (6.4-8.2); eGFR 69 ML/MIN
[2022-06-28 11:18] LABS: CHLORIDE 99 MMOL/L (99-107); POTASSIUM 3.2 MMOL/L (3.5-5.1)
[2022-06-28] MEDS ORDERED: potassium Cl 20 mEq SR tablet PO STA (11:22)
[2022-06-28 11:25] LABS: ANION GAP 12 (8-16); SODIUM 139 MMOL/L (135-145)
[2022-06-28] MEDS ORDERED: POTASSIUM BICARB 20meq eff tab 20 MEQ TABLET.EFF PO STA (11:28)
[2022-06-28 11:33] VITALS: BP 148/97
== END 2022-06-28 11:41 | disposition home or self-care (01) ==
LOC: ER 07:44
DX: S00.03XA Contusion of scalp, initial encounter (principal); Y04.0XXA Assault by unarmed brawl or fight, initial encounter; Y93.89 Activity, other specified; Y92.89 Other specified places as the place of occurrence of the external cause; Y99.8 Other external cause status
CPT/HCPCS: 36415; 70450; 80053; 85025; 99284

== ENCOUNTER 2022-06-28 19:23 | Emergency (ER) | payer BC ==
[~2022-06-28] VITALS: Ht 162.6 cm; Wt 52.3 kg
[2022-06-28 20:48] VITALS: BP 122/74
[2022-06-29] MEDS ORDERED: ondansetron 4mg rapidly disintigrating tab PO ONE (06:25)
[2022-06-29] MEDS ORDERED: ibuprofen 200mg tablet PO ONE (06:25)
== END 2022-06-29 07:43 | disposition home or self-care (01) ==
LOC: ER 19:23
DX: S06.0X0A Concussion without loss of consciousness, initial encounter (principal); S00.03XA Contusion of scalp, initial encounter; X58.XXXA Exposure to other specified factors, initial encounter; Y93.89 Activity, other specified; Y92.89 Other specified places as the place of occurrence of the external cause; Y99.8 Other external cause status
CPT/HCPCS: 99283

== ENCOUNTER 2022-06-30 21:20 | Emergency (ER) | payer BC ==
[~2022-06-30] VITALS: Ht 157.5 cm; Wt 61.3 kg
[2022-06-30 21:28] VITALS: BP 122/84
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
[2022-07-01] MEDS ORDERED: ondansetron 4mg rapidly disintigrating tab PO ONE (10:35)
[2022-07-01] MEDS ORDERED: acetaminophen 325mg tablet PO ONE (10:50)
== END 2022-07-01 12:31 | disposition home or self-care (01) ==
LOC: ER 21:21
DX: F41.9 Anxiety disorder, unspecified (principal); S09.90XD Unspecified injury of head, subsequent encounter; I10 Essential (primary) hypertension; K21.9 Gastro-esophageal reflux disease without esophagitis; Z59.00 Homelessness unspecified; Y08.89XD Assault by other specified means, subsequent encounter
CPT/HCPCS: 99283

== ENCOUNTER 2022-07-01 18:39 | Emergency (ER) | payer BC ==
[~2022-07-01] VITALS: Ht 157.5 cm; Wt 59.1 kg
[2022-07-01 18:45] VITALS: BP 116/89
== END 2022-07-02 09:00 | disposition home or self-care (01) ==
LOC: ER 18:40
DX: S06.0XAD Concussion with loss of consciousness status unknown, subsequent encounter (principal); I10 Essential (primary) hypertension; K21.9 Gastro-esophageal reflux disease without esophagitis; F10.10 Alcohol abuse, uncomplicated; Z59.00 Homelessness unspecified; Y08.89XD Assault by other specified means, subsequent encounter; Y90.9 Presence of alcohol in blood, level not specified
CPT/HCPCS: 99283

== ENCOUNTER 2022-07-02 22:33 | Emergency (ER) | payer BC ==
[~2022-07-02] VITALS: Ht 157.5 cm; Wt 59.1 kg
[2022-07-03 01:28] VITALS: BP 143/90
== END 2022-07-03 02:26 | disposition home or self-care (01) ==
LOC: ER 22:34
DX: Z02.89 Encounter for other administrative examinations (principal); F10.10 Alcohol abuse, uncomplicated; I10 Essential (primary) hypertension; K21.9 Gastro-esophageal reflux disease without esophagitis; F41.9 Anxiety disorder, unspecified; F32.A Depression, unspecified; Z87.01 Personal history of pneumonia (recurrent); Z85.41 Personal history of malignant neoplasm of cervix uteri; Z98.890 Other specified postprocedural states; Z72.89 Other problems related to lifestyle; Z59.00 Homelessness unspecified; Z79.899 Other long term (current) drug therapy; Y90.9 Presence of alcohol in blood, level not specified
CPT/HCPCS: 99281

== ENCOUNTER 2022-07-11 00:50 | Emergency (ER) | payer BC ==
[~2022-07-11] VITALS: Ht 160 cm; Wt 59.1 kg
[2022-07-11 01:08] VITALS: BP 110/90
[2022-07-11] MEDS ORDERED: acetaminophen 325mg tablet PO ONE (01:15)
== END 2022-07-11 01:33 | disposition home or self-care (01) ==
LOC: ER 00:51
DX: S00.03XA Contusion of scalp, initial encounter (principal); I10 Essential (primary) hypertension; K21.9 Gastro-esophageal reflux disease without esophagitis; Z86.19 Personal history of other infectious and parasitic diseases; Z87.410 Personal history of cervical dysplasia; Z98.890 Other specified postprocedural states; Z59.00 Homelessness unspecified; Z79.899 Other long term (current) drug therapy; Y08.89XA Assault by other specified means, initial encounter; Y93.89 Activity, other specified; Y92.89 Other specified places as the place of occurrence of the external cause; Y99.8 Other external cause status
CPT/HCPCS: 99283

== ENCOUNTER 2022-07-12 21:23 | Emergency (ER) | payer BC ==
[~2022-07-12] VITALS: Ht 160 cm; Wt 59.9 kg
[2022-07-12 21:36] VITALS: BP 124/77
== END 2022-07-13 11:21 | disposition left against medical advice (07) ==
LOC: ER 21:24
DX: R10.9 Unspecified abdominal pain (principal); Z53.21 Procedure and treatment not carried out due to patient leaving prior to being seen by health care provider

== ENCOUNTER 2022-07-16 11:41 | Emergency (ER) | payer BC ==
[~2022-07-16] VITALS: Ht 152.4 cm; Wt 54.5 kg
[2022-07-16 12:16] VITALS: BP 93/60
--- NOTE | 2022-07-16 12:23 | NUR ---
PATIENT'S BROTHER, BLAYNE HAYWARD, CALLED AND WILL BE ASBESTOS CEMENT SHEET SUPERVISOR FOR LAUREN. CONTACT PHONE NUMBERS ARE: [phone] AND [phone]
== END 2022-07-16 21:37 | disposition left against medical advice (07) ==
LOC: ER 11:42
DX: Z00.8 Encounter for other general examination (principal); Z53.21 Procedure and treatment not carried out due to patient leaving prior to being seen by health care provider

== ENCOUNTER 2022-07-19 02:40 | Emergency (ER) | payer BC ==
[~2022-07-19] VITALS: Ht 162.6 cm; Wt 63.6 kg
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
[2022-07-19] MEDS ORDERED: normal saline 1000ML IV soln IVB ONE (02:55)
[2022-07-19 03:35] LABS: CLARITY,URINE SLIGHTLY CLOUDY (Clear); COLOR,URINE YELLOW (Yellow); GLUCOSE, URINE NEGATIVE (Neg); KETONES,URINE NEGATIVE (Neg); LEUKOCYTE ESTERASE ,URINE NEGATIVE (Neg); NITRITES, URINE POSITIVE (Neg); OCCULT BLOOD,URINE SMALL (Neg); PH,URINE 7.5 (4.8-8.0); PROTEIN,URINE NEGATIVE (Neg); UROBILINOGEN,URINE 0.2 E.U/dL (0.2-1.0)
[2022-07-19 03:38] LABS: UA COLLECTION TYPE STRAIGHT CATH
[2022-07-19 03:42] LABS: BACTERIA,URINE 4+ /HPF (Neg); MUCUS STRANDS NONE SEEN /LPF (Neg); SQUAMOUS EPITHELIAL CELL,UR FEW /LPF (FEW); WBC,URINE 0-4 /HPF (0-4)
[2022-07-19 03:51] LABS: URINE AMPHETAMINE SCREEN NEGATIVE (Neg); URINE BARBITUATE SCREEN NEGATIVE (Neg); URINE BENZODIAZEPINES SCREEN NEGATIVE (Neg); URINE CANNABINOID SCREEN NEGATIVE (Neg); URINE COCAINE SCREEN NEGATIVE (Neg); URINE METHADONE SCREEN NEGATIVE (Neg); URINE OPIATE SCREEN NEGATIVE (Neg); URINE PHENCYCLIDINE SCREEN NEGATIVE (Neg)
[2022-07-19 04:55] LABS: BASOPHILS # (AUTO) 0.1 X10'3 (0-0.2); BASOPHILS % (AUTO) 0.9 % (0-1); EOSINOPHILS % (AUTO) 0.4 % (0-6); HEMATOCRIT 30.8 % (35.0-45.0); HEMOGLOBIN 9.8 g/dl (12.0-16.0); LYMPHOCYTES % (AUTO) 16.1 % (21-51); MEAN CORPUSCULAR HEMOGLOBIN 29.4 PG (27.0-31.0); MEAN PLATELET VOLUME 6.3 FL (7.4-10.4); MONOCYTES # (AUTO) 0.7 X10'3 (0-0.9); MONOCYTES % (AUTO) 10.8 % (2-12); NEUTROPHILS # (AUTO) 4.6 X10'3 (1.8-7.7); NEUTROPHILS % (AUTO) 71.8 % (42-75); PLATELET COUNT 398 X10'3 (140-440); RED BLOOD COUNT 3.34 X10'6 (4.20-5.60); RED CELL DISTRIBUTION WIDTH 18.7 % (11.5-14.5); WHITE BLOOD COUNT 6.4 X10'3 (4.5-11.0)
[2022-07-19 05:07] LABS: ALANINE AMINOTRANSFERASE 24 U/L (12-78); ALBUMIN 2.1 G/DL (3.4-5.0); ALBUMIN/GLOBULIN RATIO 0.5 (1.1-1.5); ALKALINE PHOSPHATASE 110 IU/L (46-116); ANION GAP 12 (8-16); ASPARTATE AMINO TRANSFERASE 25 U/L (10-37); BILIRUBIN,TOTAL 0.2 MG/DL (0.1-1.0); BLOOD UREA NITROGEN 15 MG/DL (7-18); BUN/CREATININE RATIO 19.5 (6.6-38.0); CALCIUM 7.8 MG/DL (8.5-10.1); CHLORIDE 104 MMOL/L (99-107); CREATININE 0.77 MG/DL (0.40-0.90); ETHANOL 0.211 GM/DL (0.0-0.010); GLUCOSE 86 MG/DL (70-104); POTASSIUM 3.7 MMOL/L (3.5-5.1); SODIUM 141 MMOL/L (135-145); TOTAL CARBON DIOXIDE 24.8 MMOL/L (24-32); TOTAL PROTEIN 6.6 G/DL (6.4-8.2); eGFR 77 ML/MIN
[2022-07-19 05:11] VITALS: BP 144/97
[2022-07-19] MEDS ORDERED: ringers solution, lactated 1000ml IV soln IV ONE (05:15)
[2022-07-19] MEDS ORDERED: morphine 2 MG/ML inj. syringe IV ONE (05:40)
--- NOTE | 2022-07-23 07:22 | NUR ---
Alexandra Waddell RN attempted to contact patient but she is homeless and has no contact phone number on file. Next of kin is her father, who resides in [facility]. Addendum: 07/23/22 at 0723 by DEBBIE Patient had a positive Urine culture and was not discharged on antibiotics.
== END 2022-07-19 06:29 | disposition home or self-care (01) ==
LOC: ER 02:41
DX: S52.591A Other fractures of lower end of right radius, initial encounter for closed fracture (principal); F10.929 Alcohol use, unspecified with intoxication, unspecified; I11.9 Hypertensive heart disease without heart failure; K21.9 Gastro-esophageal reflux disease without esophagitis; F31.9 Bipolar disorder, unspecified; Z79.899 Other long term (current) drug therapy; W19.XXXA Unspecified fall, initial encounter; Y93.89 Activity, other specified; Y92.89 Other specified places as the place of occurrence of the external cause; Y99.8 Other external cause status
CPT/HCPCS: 29125; 36415; 70450; 71045; 73110; 80053; 80305; 80320; 81001; 85025; 87077; 87088; 87186; 96361; 96374; 96375; 99285; J2270; J7030; J7120

== ENCOUNTER 2022-07-25 21:28 | Emergency (ER) | payer BC ==
[~2022-07-25] VITALS: Ht 157.5 cm; Wt 60.2 kg
[2022-07-26] MEDS ORDERED: OMEP40CA21 PO (04:37)
[2022-07-26] MEDS: mag hydrox/Alum hydrox/simeth 30ml oral suspension PO ONE (04:48)
[2022-07-26] MEDS: LIDOcaine Viscous 15ml cup MM PRN (04:49)
[2022-07-26 05:17] VITALS: BP 134/89
[2022-07-27] MEDS ORDERED: propofol 1000mg/100ml bottle 100 ML IV ONE (09:00)
[2022-07-27] MEDS ORDERED: FAMO40TA73 PO (21:56)
[2022-07-27] MEDS ORDERED: ONDA8TAB13 PO (21:56)
== END 2022-07-26 05:28 | disposition home or self-care (01) ==
LOC: ER 21:29
DX: J02.9 Acute pharyngitis, unspecified (principal); I10 Essential (primary) hypertension; K21.9 Gastro-esophageal reflux disease without esophagitis; Z85.01 Personal history of malignant neoplasm of esophagus; Z59.00 Homelessness unspecified
CPT/HCPCS: 99284; J2704

== ENCOUNTER 2022-07-28 20:35 | Emergency (ER) | payer BC ==
[~2022-07-28] VITALS: Ht 157.5 cm; Wt 61.4 kg
[~2022-07-28 20:35] MED LIST changes: +FAMO40TA73 PO; +OMEP40CA21 PO; +ONDA8TAB13 PO
[2022-07-28 20:38] VITALS: BP 137/77
[2022-07-28] MEDS ORDERED: magnesium hydroxide 30ml (MOM) UD suspension PO ONE (23:15)
[2022-07-28] MEDS ORDERED: LIDOcaine Viscous 15ml cup MM ONE (23:15)
[2022-07-28] MEDS ORDERED: sucralfate 1 gm tablet PO ONE (23:15)
[2022-07-30] MEDS ORDERED: OMEP40CA21 PO (23:05)
== END 2022-07-29 01:55 | disposition home or self-care (01) ==
LOC: ER 20:36
DX: K22.89 Other specified disease of esophagus (principal); I10 Essential (primary) hypertension; K21.9 Gastro-esophageal reflux disease without esophagitis; F31.9 Bipolar disorder, unspecified; Z79.899 Other long term (current) drug therapy; Z88.8 Allergy status to other drugs, medicaments and biological substances
CPT/HCPCS: 99284

== ENCOUNTER 2022-07-29 22:54 | Emergency (ER) | payer BC ==
[~2022-07-29] VITALS: Ht 157.5 cm; Wt 61.4 kg
[2022-07-29 23:00] VITALS: BP 123/86
--- NOTE | 2022-07-30 00:44 | NUR ---
while waiting for room, pt. is stating that she has generalized cp. ekg ordered.
[2022-07-30] MEDS ORDERED: ketoconazole 2% cream 15gm TP ONE (01:45)
[2022-07-30] MEDS ORDERED: OMEP40CA21 PO (23:05)
== END 2022-07-30 02:13 | disposition home or self-care (01) ==
LOC: ER 22:55
DX: S90.822A Blister (nonthermal), left foot, initial encounter (principal); S90.821A Blister (nonthermal), right foot, initial encounter; Y08.89XA Assault by other specified means, initial encounter; Y93.89 Activity, other specified; Y92.89 Other specified places as the place of occurrence of the external cause; Y99.8 Other external cause status
CPT/HCPCS: 93005; 99283

== ENCOUNTER 2022-07-30 17:00 | Emergency (ER) | payer BC ==
[~2022-07-30] VITALS: Ht 154.9 cm; Wt 61.4 kg
[2022-07-30 17:21] VITALS: BP 154/90
[2022-07-30] MEDS ORDERED: sucralfate 1 gm tablet PO ONE (18:45)
[2022-07-30] MEDS ORDERED: mag hydrox/Alum hydrox/simeth 30ml oral suspension PO ONE (18:45)
[2022-07-30] MEDS ORDERED: LIDOcaine Viscous 15ml cup MM ONE (18:45)
[2022-07-30] MEDS ORDERED: OMEP40CA21 PO (23:05)
== END 2022-07-30 19:45 | disposition home or self-care (01) ==
LOC: ER 17:01
DX: F10.920 Alcohol use, unspecified with intoxication, uncomplicated (principal); G89.29 Other chronic pain; R07.9 Chest pain, unspecified; I11.9 Hypertensive heart disease without heart failure; K21.9 Gastro-esophageal reflux disease without esophagitis; F31.9 Bipolar disorder, unspecified; Z79.899 Other long term (current) drug therapy; Z79.1 Long term (current) use of non-steroidal anti-inflammatories (NSAID); Z79.2 Long term (current) use of antibiotics; Y90.9 Presence of alcohol in blood, level not specified
CPT/HCPCS: 93005; 99283

== ENCOUNTER 2022-07-30 22:51 | Emergency (ER) | payer BC ==
[~2022-07-30] VITALS: Ht 157.5 cm; Wt 59.1 kg
[2022-07-30 23:00] VITALS: BP 132/80
[2022-07-30] MEDS ORDERED: famotidine 20mg tablet PO ONE (23:05)
[2022-07-30] MEDS ORDERED: OMEP40CA21 PO (23:05)
[2022-07-30] MEDS ORDERED: mag hydrox/Alum hydrox/simeth 30ml oral suspension PO ONE (23:05)
[2022-08-08] MEDS ORDERED: PANT-47 PO ×2 (10:34)
[2022-08-08] MEDS ORDERED: FOLI1TAB27 PO ×2 (10:34)
[2022-08-08] MEDS ORDERED: AMLO5TAB4 PO ×2 (10:47)
[2022-08-15] MEDS ORDERED: HYDR-3965 PO (19:48)
[2022-08-30] MEDS ORDERED: SULF1TAB49 PO (21:56)
[2022-08-30] MEDS ORDERED: FERR325T28 PO (21:57)
[2022-08-30] MEDS ORDERED: MULT1CAP66 (21:57)
[2022-08-30] MEDS ORDERED: POTA-207 PO (22:00)
[2022-08-30] MEDS ORDERED: MAGN400C PO (22:02)
[2022-08-30] MEDS ORDERED: PANT40TA54 PO (22:05)
[2022-08-30] MEDS ORDERED: PYRI25TA4 PO (22:06)
[2022-08-30] MEDS ORDERED: SERT25TA PO (22:07)
[2022-08-30] MEDS ORDERED: OMEP40CA21 PO (22:14)
[2022-08-30] MEDS ORDERED: FOLI1TAB27 PO (22:18)
[2022-08-30] MEDS ORDERED: FOLI0.4T6 PO (22:19)
[2022-09-17] MEDS ORDERED: MULT-25 PO (13:24)
[2022-09-17] MEDS ORDERED: POTA-207 PO (13:24)
[2022-09-17] MEDS ORDERED: FOLI1TAB27 PO ×2 (13:24)
[2022-09-17] MEDS ORDERED: thiamine tablet PO (13:24)
[2022-09-17] MEDS ORDERED: FER325T PO (13:24)
[2022-09-17] MEDS ORDERED: OMEP40CA21 PO (13:24)
[2022-09-17] MEDS ORDERED: BUSP15TA3 PO (13:24)
[2022-09-17] MEDS ORDERED: DULO30CA52 PO (13:24)
[2022-09-17] MEDS ORDERED: METO10TA3 PO (13:24)
[2022-09-17] MEDS ORDERED: MIRT-87 PO (13:24)
[2022-09-17] MEDS ORDERED: CLON0.1T2 PO (13:24)
[2022-09-17] MEDS ORDERED: FOLI0.8C PO (14:05)
== END 2022-07-30 23:39 | disposition home or self-care (01) ==
LOC: ER 22:52
DX: R07.9 Chest pain, unspecified (principal); K21.9 Gastro-esophageal reflux disease without esophagitis; I10 Essential (primary) hypertension; F31.9 Bipolar disorder, unspecified; Z98.890 Other specified postprocedural states; Z90.49 Acquired absence of other specified parts of digestive tract; Z79.899 Other long term (current) drug therapy; Z79.1 Long term (current) use of non-steroidal anti-inflammatories (NSAID); Z79.2 Long term (current) use of antibiotics; Z87.01 Personal history of pneumonia (recurrent); Z87.19 Personal history of other diseases of the digestive system
CPT/HCPCS: 93005; 99283

== ENCOUNTER 2022-07-31 07:26 | Emergency (ER) | payer BC ==
[~2022-07-31] VITALS: Ht 157.5 cm; Wt 61.4 kg
[2022-07-31 08:17] VITALS: BP 140/103
[2022-07-31] MEDS ORDERED: ondansetron 4mg rapidly disintigrating tab PO ONE (08:20)
== END 2022-07-31 08:46 | disposition home or self-care (01) ==
LOC: ER 07:27
DX: Z76.5 Malingerer [conscious simulation] (principal); I10 Essential (primary) hypertension; K21.9 Gastro-esophageal reflux disease without esophagitis; Z56.0 Unemployment, unspecified
CPT/HCPCS: 99283

== ENCOUNTER 2022-08-01 21:59 | Emergency (ER) | payer BC ==
[~2022-08-01] VITALS: Ht 162.6 cm; Wt 56.8 kg
[2022-08-01 22:22] VITALS: BP 137/48
--- NOTE | 2022-08-01 22:24 | NUR ---
Patient was placed in the lobby by ems. laid down across chairs, urinated in clothes. pt then taken to a room, given gown and warm blankets. when told to take clothes off and get in gown patient became loud with nurse stating "you dont think i dont know that".
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
[2022-08-01] MEDS ORDERED: LIDOcaine Viscous 15ml cup MM ONE (23:05)
[2022-08-01] MEDS ORDERED: ondansetron 4mg rapidly disintigrating tab PO ONE (23:05)
[2022-08-01] MEDS ORDERED: mag hydrox/Alum hydrox/simeth 30ml oral suspension PO ONE (23:05)
--- NOTE | 2022-08-01 23:20 | NUR ---
pt states she is very worried about her chest pain. Drifts to sleep when left in room alone. Answers all questions appropriately.
== END 2022-08-02 04:56 | disposition home or self-care (01) ==
LOC: ER 22:00
DX: F10.129 Alcohol abuse with intoxication, unspecified (principal); K21.9 Gastro-esophageal reflux disease without esophagitis; I10 Essential (primary) hypertension; F31.9 Bipolar disorder, unspecified; Z59.00 Homelessness unspecified; Z79.899 Other long term (current) drug therapy
CPT/HCPCS: 93005; 99283

== ENCOUNTER 2022-08-03 23:52 | Inpatient (IN) | payer BC ==
[~2022-08-03] VITALS: Ht 157.5 cm; Wt 61.4 kg
[2022-08-04] VITALS (13 sets, daily range): BP systolic 106–176; BP diastolic 59–95
[2022-08-04] MEDS ORDERED: CefTRIAXone 2gm/D5W 50ml BAG 50 ML IV ONE (00:05)
[2022-08-04] MEDS ORDERED: normal saline 1000ML IV soln IV ONE (00:05)
[2022-08-04 00:54] LABS: BASOPHILS # (AUTO) 0.1 X10'3 (0-0.2); EOSINOPHILS % (AUTO) 0.2 % (0-6); LYMPHOCYTES # (AUTO) 1.2 X10'3 (1.1-4.8); MEAN CORPUSCULAR HEMOGLOBIN 29.4 PG (27.0-31.0); MEAN CORPUSCULAR HGB CONC 33.4 g/dL (33.0-36.5); MONOCYTES # (AUTO) 0.7 X10'3 (0-0.9); NEUTROPHILS # (AUTO) 7.9 X10'3 (1.8-7.7)
[2022-08-04 00:55] LABS: CLARITY,URINE CLEAR (Clear); COLOR,URINE YELLOW (Yellow); GLUCOSE, URINE NEGATIVE (Neg); KETONES,URINE NEGATIVE (Neg); LEUKOCYTE ESTERASE ,URINE NEGATIVE (Neg); NITRITES, URINE NEGATIVE (Neg); OCCULT BLOOD,URINE NEGATIVE (Neg); PH,URINE 7.5 (4.8-8.0); PROTEIN,URINE NEGATIVE (Neg); UROBILINOGEN,URINE 0.2 E.U/dL (0.2-1.0)
[2022-08-04 00:55] LABS: BASOPHILS % (AUTO) 0.7 % (0-1); HEMATOCRIT 29.9 % (35.0-45.0); LYMPHOCYTES % (AUTO) 11.9 % (21-51); MEAN PLATELET VOLUME 6.4 FL (7.4-10.4); MONOCYTES % (AUTO) 7.4 % (2-12); NEUTROPHILS % (AUTO) 79.8 % (42-75); PLATELET COUNT 724 X10'3 (140-440); RED CELL DISTRIBUTION WIDTH 18.2 % (11.5-14.5); WHITE BLOOD COUNT 9.9 X10'3 (4.5-11.0)
[2022-08-04 01:02] LABS: UA COLLECTION TYPE NON-SPECIFIED
[2022-08-04 01:19] LABS: ANISOCYTOSIS 2+; PLATELET ESTIMATE INCREASED
[2022-08-04 01:46] LABS: ALANINE AMINOTRANSFERASE 20 U/L (12-78); ALBUMIN 1.8 G/DL (3.4-5.0); ALBUMIN/GLOBULIN RATIO 0.4 (1.1-1.5); ALKALINE PHOSPHATASE 114 IU/L (46-116); ANION GAP 9 (8-16); ASPARTATE AMINO TRANSFERASE 23 U/L (10-37); BLOOD UREA NITROGEN 14 MG/DL (7-18); CHLORIDE 99 MMOL/L (99-107); GLUCOSE 98 MG/DL (70-104); MAGNESIUM 2.1 MG/DL (1.5-2.4); SODIUM 140 MMOL/L (135-145); TOTAL CARBON DIOXIDE 31.9 MMOL/L (24-32); TOTAL PROTEIN 6.7 G/DL (6.4-8.2); eGFR 57 ML/MIN
[2022-08-04 01:47] LABS: BILIRUBIN,TOTAL 0.1 MG/DL (0.1-1.0); ETHANOL 0.311 GM/DL (0.0-0.010)
[2022-08-04 01:49] LABS: POTASSIUM 2.4 MMOL/L (3.5-5.1)
[2022-08-04] MEDS ORDERED: thiamine 100mg/ml 2ml inj. IV ONE (02:05)
[2022-08-04] MEDS ORDERED: DOXYCYCLINE 100MG CAPSULE PO STA (02:06)
[2022-08-04] MEDS ORDERED: potassium Cl 20 mEq SR tablet PO STA (02:20)
[2022-08-04] MEDS ORDERED: potassium Cl 10 mEq/100mL bag IV ONE (02:20)
[2022-08-04] MEDS ORDERED: ondansetron/PF 4mg/2ml inj IV ONE (02:45)
[2022-08-04] MEDS ORDERED: potassium Cl 40MEQ/1/2NS 520ml 520 ML IV PRN (02:45)
[2022-08-04] MEDS ORDERED: acetaminophen 325mg tablet PO PRN (02:45)
[2022-08-04] MEDS ORDERED: haloperidol lactate 5mg/ml inj IM PRN (02:45)
[2022-08-04] MEDS ORDERED: magnesium Cl slow-release 64mg tablet PO PRN (02:45)
[2022-08-04] MEDS ORDERED: dextrose 50%-water 50ml dispensing syringe IV PRN (02:45)
[2022-08-04] MEDS ORDERED: potassium Cl 20 mEq SR tablet PO PRN ×2 (02:45)
[2022-08-04] MEDS ORDERED: ondansetron/PF 4mg/2ml inj IV PRN (02:45)
[2022-08-04] MEDS: dextrose 5%-1/2 normal saline 1,000 ML IV SCH ×2 (02:45→12:45)
[2022-08-04] MEDS ORDERED: haloperidol 5mg tablet PO PRN (02:45)
[2022-08-04] MEDS ORDERED: magnesium hydroxide 30ml (MOM) UD suspension PO PRN (02:45)
[2022-08-04] MEDS ORDERED: magnesium 4gm in 100ml NS 100 ML IV PRN (02:45)
[2022-08-04] MEDS: potassium Cl 40MEQ/1/2NS 520ml 520 ML IV PRN ×2 (03:17→07:30)
--- NOTE | 2022-08-04 03:56 | NUR ---
Pt vomited coffee ground emesis. Gastroccult positive. MD notified. New orders for Protonix and CBC Q4HRS
--- NOTE | 2022-08-04 04:17 | NUR ---
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 She has a Master's degree. Poor choices has lead her to being homeless and jobless and drinking alcohol. She stays at the [place] when she can. She was really close to getting an apartment by the [place] but that fell through. Her dad is a doctor in [place] and her mom used to be a nurse, but has . Pt states she just feels lost in life. She gets Social security. She states it is really hard to get an apartment because she needs first and last months rent and doesn't have the finances for that. Encouraged her to put money away each month to save up. That it may take awhile, but she has to count on herself to do it. She said the other night she slept in an alley on a piece of cardboard and cried herself to sleep, saying to herself that she has to change because she is tired of this life. Encouraged her to stop drinking, to look at this admit as a new start to alcohol free. She is hoping to get help from here for AA and housing. She was happy I talked to her. She said this was the most meaningful conversation that she had in such a long time. She kept asking for water (x3) and finally I asked her why she doesn't remember why she can't have it. She was eventually able to come up with the reason why. She seems to have STM issues. However, her HAYDER is elevated. I wished her the best.
[2022-08-04 05:32] LABS: HEMOGLOBIN 9.3 g/dl (12.0-16.0)
[2022-08-04 05:33] LABS: BASOPHILS % (AUTO) 0.5 % (0-1); EOSINOPHILS % (AUTO) 0.2 % (0-6); HEMATOCRIT 29.4 % (35.0-45.0); LYMPHOCYTES # (AUTO) 1.2 X10'3 (1.1-4.8); LYMPHOCYTES % (AUTO) 12.1 % (21-51); MEAN CORPUSCULAR HEMOGLOBIN 27.6 PG (27.0-31.0); MEAN CORPUSCULAR HGB CONC 31.5 g/dL (33.0-36.5); MEAN CORPUSCULAR VOLUME 87.7 FL (78-98); MEAN PLATELET VOLUME 6.2 FL (7.4-10.4); MONOCYTES # (AUTO) 0.6 X10'3 (0-0.9); NEUTROPHILS % (AUTO) 81.2 % (42-75); PLATELET COUNT 673 X10'3 (140-440); RED BLOOD COUNT 3.35 X10'6 (4.20-5.60); RED CELL DISTRIBUTION WIDTH 18.1 % (11.5-14.5); WHITE BLOOD COUNT 9.9 X10'3 (4.5-11.0)
--- NOTE | 2022-08-04 06:36 | NUR ---
Patient in room ED 1. I have received report from Ivy VELA and had the opportunity to ask questions and awaiting patients arrival.
[2022-08-04 06:44] LABS: GASTRIC OCCULT BLOOD POSITIVE (Neg)
[2022-08-04 07:53] LABS: BASOPHILS % (AUTO) 0.4 % (0-1); EOSINOPHILS % (AUTO) 0.2 % (0-6); HEMATOCRIT 26.3 % (35.0-45.0); HEMOGLOBIN 8.5 g/dl (12.0-16.0); LYMPHOCYTES # (AUTO) 0.6 X10'3 (1.1-4.8); MEAN CORPUSCULAR HEMOGLOBIN 28.5 PG (27.0-31.0); MEAN CORPUSCULAR HGB CONC 32.2 g/dL (33.0-36.5); MEAN CORPUSCULAR VOLUME 88.6 FL (78-98); MEAN PLATELET VOLUME 6.2 FL (7.4-10.4); MONOCYTES # (AUTO) 0.5 X10'3 (0-0.9); MONOCYTES % (AUTO) 5.8 % (2-12); NEUTROPHILS # (AUTO) 7.8 X10'3 (1.8-7.7); NEUTROPHILS % (AUTO) 86.6 % (42-75); PLATELET COUNT 579 X10'3 (140-440); RED BLOOD COUNT 2.96 X10'6 (4.20-5.60); RED CELL DISTRIBUTION WIDTH 18.1 % (11.5-14.5)
[2022-08-04] MEDS: K and/or MAG REPLACEMENT MC SCH ×2 (08:00→19:51)
[2022-08-04] MEDS: docusate sod 100mg capsule PO SCH ×2 (08:23→20:00)
[2022-08-04] MEDS: thiamine 100mg/ml 2ml inj. IV SCH ×3 (08:23→20:00)
[2022-08-04] MEDS: enoxaparin 40mg/0.4ml syringe SUBCUT SCH (08:24)
[2022-08-04] MEDS: pantoprazole 40MG/NS 100ML BAG 100 ML IV SCH ×4 (08:31→21:30)
[2022-08-04] MEDS: folic acid 1mg/0.2ml inj IV SCH (10:23)
[2022-08-04] MEDS: LORazepam 2 mg/ml vial IV PRN ×2 (10:30→21:30)
[2022-08-04] MEDS ORDERED: LIDOcaine Viscous 15ml cup ONE (12:22)
[2022-08-04] MEDS ORDERED: MIDAZolam 1 MG/ML 5ML VIAL ONE (12:22)
[2022-08-04] MEDS ORDERED: fentaNYL/PF 50MCG/1 ML 2ML syringe ONE (12:42)
[2022-08-04] MEDS: normal saline 1000ml 1,000 ML IV SCH ×2 (14:00→22:00)
[2022-08-04 14:33] LABS: BASOPHILS # (AUTO) 0.1 X10'3 (0-0.2); BASOPHILS % (AUTO) 0.8 % (0-1); EOSINOPHILS % (AUTO) 0.1 % (0-6); HEMATOCRIT 25.5 % (35.0-45.0); HEMOGLOBIN 8.4 g/dl (12.0-16.0); LYMPHOCYTES # (AUTO) 0.9 X10'3 (1.1-4.8); LYMPHOCYTES % (AUTO) 10.6 % (21-51); MEAN CORPUSCULAR HEMOGLOBIN 29.1 PG (27.0-31.0); MEAN CORPUSCULAR HGB CONC 32.9 g/dL (33.0-36.5); MEAN CORPUSCULAR VOLUME 88.5 FL (78-98); MEAN PLATELET VOLUME 6.3 FL (7.4-10.4); MONOCYTES # (AUTO) 0.6 X10'3 (0-0.9); MONOCYTES % (AUTO) 7.5 % (2-12); NEUTROPHILS # (AUTO) 6.6 X10'3 (1.8-7.7); PLATELET COUNT 528 X10'3 (140-440); RED BLOOD COUNT 2.88 X10'6 (4.20-5.60); RED CELL DISTRIBUTION WIDTH 18.2 % (11.5-14.5); WHITE BLOOD COUNT 8.2 X10'3 (4.5-11.0)
--- NOTE | 2022-08-04 15:33 | NUR ---
PAGER ID: [phone] MESSAGE: LEIF SURG 52 PATIENT KNUTZ BACK FROM GI LAB RESULTS ,erosive esophagitis with no bleeding biopsied, ulcer around lower esophagus . Recommendations PPI BID , large hiatal hernia also advise to resume previous diet . can i feed patient? (238 character message out of a maximum of 240)
--- NOTE | 2022-08-04 18:06 | NUR ---
DC left finger PIV as had infiltrated. Left EJ intact but difficult to infuse with positional movement. Patient commenced on full lqd diet tolerating well. Resting at this time. report given to Nisreen Mcgee RN
[2022-08-04] MEDS ORDERED: NO HOME MEDS (19:10)
[2022-08-04 20:42] LABS: BASOPHILS # (AUTO) 0.1 X10'3 (0-0.2); BASOPHILS % (AUTO) 0.7 % (0-1); EOSINOPHILS % (AUTO) 0.3 % (0-6); HEMATOCRIT 25.9 % (35.0-45.0); HEMOGLOBIN 8.5 g/dl (12.0-16.0); LYMPHOCYTES # (AUTO) 0.7 X10'3 (1.1-4.8); LYMPHOCYTES % (AUTO) 7.6 % (21-51); MEAN CORPUSCULAR HEMOGLOBIN 28.8 PG (27.0-31.0); MEAN CORPUSCULAR HGB CONC 32.8 g/dL (33.0-36.5); MEAN PLATELET VOLUME 6.6 FL (7.4-10.4); MONOCYTES # (AUTO) 0.6 X10'3 (0-0.9); MONOCYTES % (AUTO) 6.9 % (2-12); NEUTROPHILS # (AUTO) 7.6 X10'3 (1.8-7.7); NEUTROPHILS % (AUTO) 84.5 % (42-75); PLATELET COUNT 570 X10'3 (140-440); RED BLOOD COUNT 2.94 X10'6 (4.20-5.60); RED CELL DISTRIBUTION WIDTH 18.1 % (11.5-14.5)
[2022-08-05] MEDS: normal saline 1000ml 1,000 ML IV SCH ×2 (02:38→16:17)
[2022-08-05] MEDS: pantoprazole 40MG/NS 100ML BAG 100 ML IV SCH ×5 (02:38→22:13)
[2022-08-05 05:52] LABS: BASOPHILS % (AUTO) 0.6 % (0-1); EOSINOPHILS # (AUTO) 0.1 X10'3 (0-0.9); EOSINOPHILS % (AUTO) 0.7 % (0-6); HEMATOCRIT 22.3 % (35.0-45.0); HEMOGLOBIN 7.4 g/dl (12.0-16.0); LYMPHOCYTES # (AUTO) 1.1 X10'3 (1.1-4.8); LYMPHOCYTES % (AUTO) 14.6 % (21-51); MEAN CORPUSCULAR HEMOGLOBIN 29.4 PG (27.0-31.0); MEAN CORPUSCULAR HGB CONC 33.4 g/dL (33.0-36.5); MEAN CORPUSCULAR VOLUME 87.8 FL (78-98); MEAN PLATELET VOLUME 6.5 FL (7.4-10.4); MONOCYTES # (AUTO) 0.7 X10'3 (0-0.9); MONOCYTES % (AUTO) 8.8 % (2-12); NEUTROPHILS # (AUTO) 5.7 X10'3 (1.8-7.7); NEUTROPHILS % (AUTO) 75.3 % (42-75); PLATELET COUNT 438 X10'3 (140-440); RED BLOOD COUNT 2.54 X10'6 (4.20-5.60); RED CELL DISTRIBUTION WIDTH 18.1 % (11.5-14.5); WHITE BLOOD COUNT 7.5 X10'3 (4.5-11.0)
[2022-08-05 05:59] LABS: ALANINE AMINOTRANSFERASE 11 U/L (12-78); ALBUMIN 1.4 G/DL (3.4-5.0); ALBUMIN/GLOBULIN RATIO 0.3 (1.1-1.5); ALKALINE PHOSPHATASE 102 IU/L (46-116); ANION GAP 4 (8-16); ASPARTATE AMINO TRANSFERASE 21 U/L (10-37); BILIRUBIN,TOTAL 0.2 MG/DL (0.1-1.0); BLOOD UREA NITROGEN 13 MG/DL (7-18); BUN/CREATININE RATIO 15.3 (6.6-38.0); CALCIUM 7.1 MG/DL (8.5-10.1); CHLORIDE 109 MMOL/L (99-107); CREATININE 0.85 MG/DL (0.40-0.90); GLUCOSE 85 MG/DL (70-104); POTASSIUM 4.5 MMOL/L (3.5-5.1); SODIUM 139 MMOL/L (135-145); TOTAL CARBON DIOXIDE 26.4 MMOL/L (24-32); TOTAL PROTEIN 5.5 G/DL (6.4-8.2); eGFR 69 ML/MIN
--- NOTE | 2022-08-05 06:09 | NUR ---
Problems reprioritized. Patient report given, questions answered & plan of care reviewed with MIRIAN Ramon.
--- NOTE | 2022-08-05 07:00 | NUR ---
Patient in room [facility] 356. I have received report from Nisreen VELA and had the opportunity to ask questions and assume patient care.
[2022-08-05 07:09] VITALS: BP 132/77
[2022-08-05] MEDS: thiamine 100mg/ml 2ml inj. IV SCH ×3 (07:59→20:40)
[2022-08-05] MEDS: folic acid 1mg/0.2ml inj IV SCH (08:00)
[2022-08-05] MEDS: docusate sod 100mg capsule PO SCH ×2 (08:00→20:40)
[2022-08-05] MEDS: K and/or MAG REPLACEMENT MC SCH ×2 (08:00→20:00)
[2022-08-05] MEDS: enoxaparin 40mg/0.4ml syringe SUBCUT SCH (08:07)
[2022-08-05 11:00] VITALS: BP 125/69
[2022-08-05] MEDS: levoFLOXACIN-Levaquin 500mg/D5 100 ML IV SCH (13:09)
[2022-08-05 18:00] VITALS: BP 140/79
--- NOTE | 2022-08-05 18:06 | NUR ---
Problems reprioritized. Patient report given, questions answered & plan of care reviewed with Nisreen VELA.
[2022-08-05] MEDS: LORazepam 2 mg/ml vial IV PRN (20:47)
[2022-08-05 22:00] VITALS: BP 161/93
[2022-08-06] MEDS: normal saline 1000ml 1,000 ML IV SCH ×3 (01:10→17:12)
[2022-08-06] MEDS ORDERED: LORazepam 2 mg/ml vial IV PRN (02:45)
[2022-08-06] MEDS: pantoprazole 40MG/NS 100ML BAG 100 ML IV SCH ×6 (03:36→23:18)
--- NOTE | 2022-08-06 05:51 | NUR ---
Removed FC and patient helped to BR to try to empty her bladder.
--- NOTE | 2022-08-06 06:29 | NUR ---
Problems reprioritized. Patient report given, questions answered & plan of care reviewed with MIRIAN Ramon.
[2022-08-06 06:32] LABS: BASOPHILS % (AUTO) 0.7 % (0-1); EOSINOPHILS # (AUTO) 0.1 X10'3 (0-0.9); EOSINOPHILS % (AUTO) 2.4 % (0-6); HEMOGLOBIN 8.2 g/dl (12.0-16.0); LYMPHOCYTES # (AUTO) 1.2 X10'3 (1.1-4.8); LYMPHOCYTES % (AUTO) 19.8 % (21-51); MEAN CORPUSCULAR HEMOGLOBIN 28.7 PG (27.0-31.0); MEAN CORPUSCULAR HGB CONC 32.6 g/dL (33.0-36.5); MEAN CORPUSCULAR VOLUME 87.9 FL (78-98); MEAN PLATELET VOLUME 6.3 FL (7.4-10.4); MONOCYTES # (AUTO) 0.6 X10'3 (0-0.9); MONOCYTES % (AUTO) 10.6 % (2-12); NEUTROPHILS # (AUTO) 3.9 X10'3 (1.8-7.7); NEUTROPHILS % (AUTO) 66.5 % (42-75); PLATELET COUNT 457 X10'3 (140-440); RED BLOOD COUNT 2.84 X10'6 (4.20-5.60); RED CELL DISTRIBUTION WIDTH 18.2 % (11.5-14.5); WHITE BLOOD COUNT 5.9 X10'3 (4.5-11.0)
[2022-08-06 06:40] LABS: TOTAL CARBON DIOXIDE 22.9 MMOL/L (24-32)
--- NOTE | 2022-08-06 06:40 | NUR ---
Patient in room [facility] 356. I have received report from Nisreen VELA and had the opportunity to ask questions and assume patient care.
[2022-08-06 06:47] VITALS: BP 121/76
[2022-08-06 07:19] LABS: ALANINE AMINOTRANSFERASE 18 U/L (12-78); ALBUMIN 1.6 G/DL (3.4-5.0); ALBUMIN/GLOBULIN RATIO 0.3 (1.1-1.5); ALKALINE PHOSPHATASE 97 IU/L (46-116); ANION GAP 10 (8-16); ASPARTATE AMINO TRANSFERASE 26 U/L (10-37); BILIRUBIN,TOTAL 0.1 MG/DL (0.1-1.0); BLOOD UREA NITROGEN 7 MG/DL (7-18); BUN/CREATININE RATIO 9.9 (6.6-38.0); CALCIUM 7.9 MG/DL (8.5-10.1); CHLORIDE 103 MMOL/L (99-107); CREATININE 0.71 MG/DL (0.40-0.90); GLUCOSE 95 MG/DL (70-104); POTASSIUM 3.9 MMOL/L (3.5-5.1); SODIUM 136 MMOL/L (135-145); TOTAL PROTEIN 6.2 G/DL (6.4-8.2); eGFR 85 ML/MIN
[2022-08-06] MEDS: K and/or MAG REPLACEMENT MC SCH ×2 (08:00→20:00)
[2022-08-06] MEDS: levoFLOXACIN-Levaquin 500mg/D5 100 ML IV SCH (08:15)
[2022-08-06] MEDS: folic acid 1mg/0.2ml inj IV SCH (08:15)
[2022-08-06] MEDS: docusate sod 100mg capsule PO SCH ×2 (08:15→21:12)
[2022-08-06] MEDS: thiamine 100mg/ml 2ml inj. IV SCH ×3 (08:15→21:12)
[2022-08-06 11:43] VITALS: BP 149/91
[2022-08-06] MEDS: LORazepam 1 MG tablet PO PRN ×2 (15:59→23:24)
[2022-08-06 18:00] VITALS: BP 147/87
--- NOTE | 2022-08-06 18:25 | NUR ---
Problems reprioritized. Patient report given, questions answered & plan of care reviewed with Sonam Masters RN.
--- NOTE | 2022-08-06 18:40 | NUR ---
Patient in room MY[facility] 356. I have received report from SAMIA VELA and had the opportunity to ask questions and assume patient care.
[2022-08-06] MEDS: mag hydrox/Alum hydrox/simeth 30ml oral suspension PO PRN (19:02)
[2022-08-07 01:02] VITALS: BP 146/93
[2022-08-07] MEDS: normal saline 1000ml 1,000 ML IV SCH ×2 (04:32→18:00)
[2022-08-07] MEDS: pantoprazole 40MG/NS 100ML BAG 100 ML IV SCH ×4 (04:40→21:00)
[2022-08-07 05:00] VITALS: BP 139/84
--- NOTE | 2022-08-07 06:42 | NUR ---
Problems reprioritized. Patient report given, questions answered & plan of care reviewed with PABLITO VELA.
[2022-08-07] MEDS: docusate sod 100mg capsule PO SCH ×2 (07:42→22:08)
[2022-08-07] MEDS: levoFLOXACIN-Levaquin 500mg/D5 100 ML IV SCH (07:42)
[2022-08-07] MEDS: thiamine 100mg/ml 2ml inj. IV SCH (07:42)
[2022-08-07] MEDS: folic acid 1mg/0.2ml inj IV SCH (07:43)
[2022-08-07 07:48] LABS: BASOPHILS % (AUTO) 0.6 % (0-1); EOSINOPHILS # (AUTO) 0.1 X10'3 (0-0.9); EOSINOPHILS % (AUTO) 1.6 % (0-6); HEMATOCRIT 23.5 % (35.0-45.0); HEMOGLOBIN 7.6 g/dl (12.0-16.0); LYMPHOCYTES # (AUTO) 1.3 X10'3 (1.1-4.8); LYMPHOCYTES % (AUTO) 18.3 % (21-51); MEAN CORPUSCULAR HEMOGLOBIN 28.5 PG (27.0-31.0); MEAN CORPUSCULAR HGB CONC 32.6 g/dL (33.0-36.5); MEAN CORPUSCULAR VOLUME 87.6 FL (78-98); MEAN PLATELET VOLUME 6.5 FL (7.4-10.4); MONOCYTES # (AUTO) 0.7 X10'3 (0-0.9); MONOCYTES % (AUTO) 10.1 % (2-12); NEUTROPHILS # (AUTO) 4.8 X10'3 (1.8-7.7); NEUTROPHILS % (AUTO) 69.4 % (42-75); PLATELET COUNT 454 X10'3 (140-440); RED BLOOD COUNT 2.68 X10'6 (4.20-5.60); RED CELL DISTRIBUTION WIDTH 17.9 % (11.5-14.5); WHITE BLOOD COUNT 6.9 X10'3 (4.5-11.0)
[2022-08-07] MEDS: K and/or MAG REPLACEMENT MC SCH ×2 (08:00→20:00)
[2022-08-07 08:59] LABS: ALANINE AMINOTRANSFERASE 17 U/L (12-78); ALBUMIN 1.8 G/DL (3.4-5.0); ALBUMIN/GLOBULIN RATIO 0.4 (1.1-1.5); ALKALINE PHOSPHATASE 94 IU/L (46-116); ANION GAP 8 (8-16); ASPARTATE AMINO TRANSFERASE 19 U/L (10-37); BILIRUBIN,TOTAL 0.2 MG/DL (0.1-1.0); BLOOD UREA NITROGEN 8 MG/DL (7-18); BUN/CREATININE RATIO 11.6 (6.6-38.0); CALCIUM 7.8 MG/DL (8.5-10.1); CHLORIDE 104 MMOL/L (99-107); CREATININE 0.69 MG/DL (0.40-0.90); GLUCOSE 100 MG/DL (70-104); SODIUM 136 MMOL/L (135-145); TOTAL CARBON DIOXIDE 23.6 MMOL/L (24-32); TOTAL PROTEIN 6.4 G/DL (6.4-8.2); eGFR 87 ML/MIN
[2022-08-07 11:00] VITALS: BP 169/106
--- NOTE | 2022-08-07 11:45 | NUR ---
PAGER ID: [phone] MESSAGE: [id number] OTILIA, HER CURRENT BP IS 169/106 HR 98
[2022-08-07] MEDS: LORazepam 1 MG tablet PO PRN (12:01)
--- NOTE | 2022-08-07 13:01 | NUR ---
Met with patient in regards to alcohol use and to see if patient was interested in resources for treatment options. Patient is interested in starting Naltrexone again. Patient has been seeing [facility] at [facility] for counseling and it has helped. I talked to patient about getting a sponsor and getting into meetings. I gave patient a card for [facility], where she can get her Naltrexone and tele health meetings. Patient has my card to call me with any questions.
[2022-08-07] MEDS: mag hydrox/Alum hydrox/simeth 30ml oral suspension PO PRN (15:44)
--- NOTE | 2022-08-07 18:25 | NUR ---
Problems reprioritized. Patient report given, questions answered & plan of care reviewed with Sonam Masters RN.
--- NOTE | 2022-08-07 18:30 | NUR ---
PAGER ID: [phone] MESSAGE: [id number] [facility] Pathology report is up. Loly [phone]
--- NOTE | 2022-08-07 18:40 | NUR ---
Patient in room [facility] 356. I have received report from PABLITO VELA and had the opportunity to ask questions and assume patient care.
[2022-08-07 19:00] VITALS: BP 162/97
[2022-08-07 22:00] VITALS: BP 163/98
[2022-08-08] MEDS: pantoprazole 40MG/NS 100ML BAG 100 ML IV SCH ×5 (00:13→21:42)
[2022-08-08] MEDS ORDERED: LORazepam 2 mg/ml vial IV PRN (02:45)
[2022-08-08] MEDS ORDERED: LORazepam 1 MG tablet PO PRN (02:45)
[2022-08-08] MEDS: normal saline 1000ml 1,000 ML IV SCH ×2 (06:14→16:00)
--- NOTE | 2022-08-08 06:30 | NUR ---
Problems reprioritized. Patient report given, questions answered & plan of care reviewed with PABLITO VELA.
[2022-08-08 06:46] LABS: BASOPHILS % (AUTO) 0.5 % (0-1); EOSINOPHILS # (AUTO) 0.1 X10'3 (0-0.9); EOSINOPHILS % (AUTO) 1.6 % (0-6); HEMATOCRIT 24.9 % (35.0-45.0); HEMOGLOBIN 7.9 g/dl (12.0-16.0); LYMPHOCYTES # (AUTO) 1.3 X10'3 (1.1-4.8); LYMPHOCYTES % (AUTO) 18.7 % (21-51); MEAN CORPUSCULAR HEMOGLOBIN 27.8 PG (27.0-31.0); MEAN CORPUSCULAR HGB CONC 31.5 g/dL (33.0-36.5); MEAN PLATELET VOLUME 6.3 FL (7.4-10.4); MONOCYTES # (AUTO) 0.7 X10'3 (0-0.9); NEUTROPHILS # (AUTO) 4.7 X10'3 (1.8-7.7); NEUTROPHILS % (AUTO) 68.2 % (42-75); PLATELET COUNT 476 X10'3 (140-440); RED BLOOD COUNT 2.83 X10'6 (4.20-5.60); RED CELL DISTRIBUTION WIDTH 18.1 % (11.5-14.5); WHITE BLOOD COUNT 6.8 X10'3 (4.5-11.0)
[2022-08-08 07:00] VITALS: BP 149/100
[2022-08-08 07:23] LABS: ALANINE AMINOTRANSFERASE 13 U/L (12-78); ALBUMIN/GLOBULIN RATIO 0.4 (1.1-1.5); ALKALINE PHOSPHATASE 91 IU/L (46-116); ANION GAP 8 (8-16); ASPARTATE AMINO TRANSFERASE 17 U/L (10-37); BILIRUBIN,TOTAL 0.2 MG/DL (0.1-1.0); BLOOD UREA NITROGEN 7 MG/DL (7-18); BUN/CREATININE RATIO 9.7 (6.6-38.0); CALCIUM 8.1 MG/DL (8.5-10.1); CHLORIDE 104 MMOL/L (99-107); CREATININE 0.72 MG/DL (0.40-0.90); GLUCOSE 99 MG/DL (70-104); POTASSIUM 3.8 MMOL/L (3.5-5.1); SODIUM 135 MMOL/L (135-145); TOTAL CARBON DIOXIDE 23.2 MMOL/L (24-32); TOTAL PROTEIN 6.8 G/DL (6.4-8.2); eGFR 83 ML/MIN
[2022-08-08] MEDS: K and/or MAG REPLACEMENT MC SCH ×2 (07:43→20:00)
[2022-08-08] MEDS: docusate sod 100mg capsule PO SCH ×2 (08:12→21:44)
[2022-08-08] MEDS: thiamine 100mg tablet PO SCH (08:13)
[2022-08-08] MEDS: folic acid 1mg tablet PO SCH (08:13)
[2022-08-08] MEDS: levoFLOXACIN-Levaquin 500mg/D5 100 ML IV SCH (08:14)
[2022-08-08 09:49] LABS: GIANT PLATELET FEW; LARGE PLATELETS FEW; PLATELET ESTIMATE INCREASED
[2022-08-08 09:50] LABS: ANISOCYTOSIS 2+; ELLIPTOCYTES FEW
[2022-08-08] MEDS ORDERED: thiamine tablet PO (10:34)
[2022-08-08] MEDS ORDERED: FOLI1TAB27 PO (10:34)
[2022-08-08] MEDS ORDERED: PANT-47 PO (10:34)
[2022-08-08] MEDS ORDERED: AMLO5TAB4 PO (10:47)
[2022-08-08 11:00] VITALS: BP 137/86
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
[2022-08-08] MEDS ORDERED: proCHLORperazine 10 MG/2 ml inj IV PRN (13:20)
[2022-08-08] MEDS ORDERED: ondansetron/PF 4mg/2ml inj IV PRN (13:20)
[2022-08-08] MEDS ORDERED: proCHLORperazine 10 MG/2 ml inj IV ONE (13:21)
[2022-08-08 18:00] VITALS: BP 104/76
--- NOTE | 2022-08-08 18:25 | NUR ---
Problems reprioritized. Patient report given, questions answered & plan of care reviewed with JUDITH WONG RN.
--- NOTE | 2022-08-08 18:40 | NUR ---
Patient in room [facility] 356. I have received report from PABLITO VELA and had the opportunity to ask questions and assume patient care.
[2022-08-08 22:00] VITALS: BP 124/80
[2022-08-09] MEDS: pantoprazole 40MG/NS 100ML BAG 100 ML IV SCH ×3 (01:00→11:00)
[2022-08-09] MEDS: normal saline 1000ml 1,000 ML IV SCH ×2 (02:00→03:01)
--- NOTE | 2022-08-09 06:30 | NUR ---
Problems reprioritized. Patient report given, questions answered & plan of care reviewed with BIPIN VELA.
[2022-08-09 07:00] VITALS: BP 136/76
[2022-08-09 07:03] LABS: BASOPHILS % (AUTO) 0.6 % (0-1); EOSINOPHILS # (AUTO) 0.1 X10'3 (0-0.9); EOSINOPHILS % (AUTO) 1.3 % (0-6); HEMOGLOBIN 7.8 g/dl (12.0-16.0); LYMPHOCYTES # (AUTO) 1.1 X10'3 (1.1-4.8); LYMPHOCYTES % (AUTO) 17.8 % (21-51); MEAN CORPUSCULAR HEMOGLOBIN 28.6 PG (27.0-31.0); MEAN CORPUSCULAR HGB CONC 32.5 g/dL (33.0-36.5); MEAN PLATELET VOLUME 6.5 FL (7.4-10.4); MONOCYTES # (AUTO) 0.7 X10'3 (0-0.9); MONOCYTES % (AUTO) 11.7 % (2-12); NEUTROPHILS # (AUTO) 4.4 X10'3 (1.8-7.7); NEUTROPHILS % (AUTO) 68.6 % (42-75); PLATELET COUNT 534 X10'3 (140-440); RED BLOOD COUNT 2.73 X10'6 (4.20-5.60); RED CELL DISTRIBUTION WIDTH 17.8 % (11.5-14.5); WHITE BLOOD COUNT 6.4 X10'3 (4.5-11.0)
[2022-08-09 07:47] LABS: ALANINE AMINOTRANSFERASE 16 U/L (12-78); ALBUMIN/GLOBULIN RATIO 0.4 (1.1-1.5); ALKALINE PHOSPHATASE 80 IU/L (46-116); ANION GAP 8 (8-16); ASPARTATE AMINO TRANSFERASE 15 U/L (10-37); BILIRUBIN,TOTAL 0.1 MG/DL (0.1-1.0); BLOOD UREA NITROGEN 7 MG/DL (7-18); BUN/CREATININE RATIO 10.3 (6.6-38.0); CALCIUM 8.3 MG/DL (8.5-10.1); CHLORIDE 106 MMOL/L (99-107); CREATININE 0.68 MG/DL (0.40-0.90); GLUCOSE 106 MG/DL (70-104); SODIUM 137 MMOL/L (135-145); TOTAL CARBON DIOXIDE 22.8 MMOL/L (24-32); TOTAL PROTEIN 6.8 G/DL (6.4-8.2); eGFR 89 ML/MIN
[2022-08-09] MEDS: levoFLOXACIN-Levaquin 500mg/D5 100 ML IV SCH (08:00)
[2022-08-09] MEDS: K and/or MAG REPLACEMENT MC SCH (08:00)
[2022-08-09] MEDS: docusate sod 100mg capsule PO SCH (09:06)
[2022-08-09] MEDS: folic acid 1mg tablet PO SCH (09:06)
[2022-08-09] MEDS: thiamine 100mg tablet PO SCH (09:06)
[2022-08-09 11:00] VITALS: BP 148/79
--- NOTE | 2022-08-09 14:00 | NUR ---
Patient stable and appropriate for discharge. All belongings taken from room. New RX called into [facility] per patients request. All discharge instructions and education given and reviewed with patient, all questions answered. Patient received sack lunch x2 on dc. Patient picked up by taxi cab who was instructed to drive patient to [facility] for medications and then sprouts as requested by patient.
[2022-08-09] MEDS ORDERED: PANT-47 PO (21:18)
[2022-08-09] MEDS ORDERED: ONDA8TAB13 PO (21:18)
[2022-08-09] MEDS ORDERED: LEVO-65 PO (21:18)
== END 2022-08-09 14:00 | disposition home or self-care (01) | DRG 380 ==
LOC: ER 23:52 → ED HOLD 08-04 02:47 → SUR 3N 08-04 06:43
PROVIDERS: ADMIT Internal Medicine; ATTEND Family Medicine
PROC: 0DB48ZX Excision of Esophagogastric Junction, Via Natural or Artificial Opening Endoscopic, Diagnostic (ICD-10-PCS; principal; 2022-08-04)
PROC: 0DB38ZX Excision of Lower Esophagus, Via Natural or Artificial Opening Endoscopic, Diagnostic (ICD-10-PCS; 2022-08-04)
PROC: 2W3EX1Z Immobilization of Right Hand using Splint (ICD-10-PCS; 2022-08-04)
DX: K22.11 Ulcer of esophagus with bleeding (principal); E43 Unspecified severe protein-calorie malnutrition; J69.0 Pneumonitis due to inhalation of food and vomit; D62 Acute posthemorrhagic anemia; K29.71 Gastritis, unspecified, with bleeding; K21.01 Gastro-esophageal reflux disease with esophagitis, with bleeding; E87.6 Hypokalemia; F32.A Depression, unspecified; F41.9 Anxiety disorder, unspecified; R11.2 Nausea with vomiting, unspecified; K44.9 Diaphragmatic hernia without obstruction or gangrene; I10 Essential (primary) hypertension; R68.0 Hypothermia, not associated with low environmental temperature; F10.229 Alcohol dependence with intoxication, unspecified; Y90.8 Blood alcohol level of 240 mg/100 ml or more; Z59.00 Homelessness unspecified; S62.101S Fracture of unspecified carpal bone, right wrist, sequela; Z82.49 Family history of ischemic heart disease and other diseases of the circulatory system; Z85.41 Personal history of malignant neoplasm of cervix uteri; Z93.3 Colostomy status; Z79.899 Other long term (current) drug therapy; Z68.24 Body mass index [BMI] 24.0-24.9, adult
CPT/HCPCS: 29125; 36415; 43239; 71045; 80053; 80320; 81003; 82271; 82948; 83605; 83735; 84132; 84145; 85008; 85025; 87040; 87502; 87503; 88305; 88312; 97116; 97161; 99152; 99285; A6258; A6449; C9113; G0378; J0696; J0780; J1650; J1956; J2060; J2250; J2405; J3010; J3411; J3480; J3490; J7030

== ENCOUNTER 2022-08-13 18:34 | Emergency (ER) | payer BC ==
[~2022-08-13] VITALS: Ht 162.6 cm; Wt 62.0 kg
[~2022-08-13 18:34] MED LIST changes: +AMLO5TAB4 PO; -FAMO20TA44 PO; -FAMO40TA73 PO; -FERR324T4 PO; +LEVO-65 PO; -LIDO20SO16 PO; -OMEP40CA21 PO; -ONDA4TAB12 PO; +PANT-47 PO; -PANT40TA54 PO; -SUCR1TAB34 PO
[2022-08-13 18:38] VITALS: BP 120/85
[2022-08-15] MEDS ORDERED: HYDR-3965 PO (19:48)
[2022-08-26] MEDS ORDERED: PANT-47 PO ×2 (09:34→09:45)
== END 2022-08-13 19:53 | disposition home or self-care (01) ==
LOC: ER 18:35
DX: F10.20 Alcohol dependence, uncomplicated (principal); Z76.5 Malingerer [conscious simulation]; I10 Essential (primary) hypertension; K21.9 Gastro-esophageal reflux disease without esophagitis; F41.9 Anxiety disorder, unspecified; F32.9 Major depressive disorder, single episode, unspecified; Z98.890 Other specified postprocedural states; Z59.00 Homelessness unspecified; Z79.899 Other long term (current) drug therapy; Y90.9 Presence of alcohol in blood, level not specified
CPT/HCPCS: 99283

== ENCOUNTER 2022-08-14 00:08 | Emergency (ER) | payer BC ==
[~2022-08-14] VITALS: Ht 167.6 cm; Wt 59.1 kg
[2022-08-14 00:27] VITALS: BP 139/78
--- NOTE | 2022-08-14 09:28 | NUR ---
Received order for consult. Met with patient in regards to alcohol use and to see if patient was interested in resources for treatment options. Patient stated that she feels like no one wants to help her. I printed patient a application for [facility] and talked to her about medication to help with cravings, getting a sponsor and start going to AA meetings.
[2022-08-15] MEDS ORDERED: HYDR-3965 PO (19:48)
[2022-08-26] MEDS ORDERED: PANT-47 PO ×2 (09:34→09:45)
== END 2022-08-14 10:40 | disposition home or self-care (01) ==
LOC: ER 00:09
DX: F10.10 Alcohol abuse, uncomplicated (principal); I10 Essential (primary) hypertension; K21.9 Gastro-esophageal reflux disease without esophagitis; F41.9 Anxiety disorder, unspecified; F32.9 Major depressive disorder, single episode, unspecified; Z98.890 Other specified postprocedural states; Z59.00 Homelessness unspecified; Z79.899 Other long term (current) drug therapy; Y90.9 Presence of alcohol in blood, level not specified
CPT/HCPCS: 99283

== ENCOUNTER 2022-08-16 00:46 | Emergency (ER) | payer BC ==
[~2022-08-16] VITALS: Ht 157.5 cm; Wt 59.1 kg
[~2022-08-16 00:46] MED LIST changes: +HYDR-3965 PO
[2022-08-16 01:05] VITALS: BP 143/88
[2022-08-16] MEDS ORDERED: LIDOcaine Viscous 15ml cup MM STA (04:14)
[2022-08-17] MEDS ORDERED: PANT-47 PO (00:39)
== END 2022-08-16 04:42 | disposition home or self-care (01) ==
LOC: ER 00:47
DX: K22.70 Barrett's esophagus without dysplasia (principal); K22.89 Other specified disease of esophagus; I10 Essential (primary) hypertension; K21.9 Gastro-esophageal reflux disease without esophagitis; Z59.00 Homelessness unspecified
CPT/HCPCS: 99283

== ENCOUNTER 2022-08-16 19:56 | Emergency (ER) | payer BC ==
[~2022-08-16] VITALS: Ht 157.5 cm; Wt 60.0 kg
[2022-08-17] MEDS ORDERED: PANT-47 PO (00:39)
[2022-08-17] MEDS ORDERED: pantoprazole 40mg Tablet.DR PO ONE (00:40)
[2022-08-17] MEDS ORDERED: LIDOcaine Viscous 15ml cup MM ONE (00:40)
[2022-08-17] MEDS ORDERED: mag hydrox/Alum hydrox/simeth 30ml oral suspension PO ONE (00:40)
[2022-08-17 00:42] VITALS: BP 108/61
[2022-08-30] MEDS ORDERED: SULF1TAB49 PO (21:56)
[2022-08-30] MEDS ORDERED: FERR325T28 PO (21:57)
[2022-08-30] MEDS ORDERED: MULT1CAP66 (21:57)
[2022-08-30] MEDS ORDERED: POTA-207 PO (22:00)
[2022-08-30] MEDS ORDERED: MAGN400C PO (22:02)
[2022-08-30] MEDS ORDERED: PANT40TA54 PO (22:05)
[2022-08-30] MEDS ORDERED: PYRI25TA4 PO (22:06)
[2022-08-30] MEDS ORDERED: SERT25TA PO (22:07)
[2022-08-30] MEDS ORDERED: OMEP40CA21 PO (22:14)
[2022-08-30] MEDS ORDERED: FOLI1TAB27 PO (22:18)
[2022-08-30] MEDS ORDERED: FOLI0.4T6 PO (22:19)
[2022-09-17] MEDS ORDERED: thiamine tablet PO (13:24)
[2022-09-17] MEDS ORDERED: POTA-207 PO (13:24)
[2022-09-17] MEDS ORDERED: OMEP40CA21 PO (13:24)
[2022-09-17] MEDS ORDERED: DULO30CA52 PO (13:24)
[2022-09-17] MEDS ORDERED: FOLI1TAB27 PO ×2 (13:24)
[2022-09-17] MEDS ORDERED: CLON0.1T2 PO (13:24)
[2022-09-17] MEDS ORDERED: METO10TA3 PO (13:24)
[2022-09-17] MEDS ORDERED: MIRT-87 PO (13:24)
[2022-09-17] MEDS ORDERED: MULT-25 PO (13:24)
[2022-09-17] MEDS ORDERED: BUSP15TA3 PO (13:24)
[2022-09-17] MEDS ORDERED: FER325T PO (13:24)
[2022-09-17] MEDS ORDERED: FOLI0.8C PO (14:05)
[2022-11-02] MEDS ORDERED: CEPH500C2 PO ×3 (15:38→15:59)
== END 2022-08-17 01:14 | disposition home or self-care (01) ==
LOC: ER 19:57
DX: K21.9 Gastro-esophageal reflux disease without esophagitis (principal); F10.20 Alcohol dependence, uncomplicated; I10 Essential (primary) hypertension; Z59.00 Homelessness unspecified; Y90.9 Presence of alcohol in blood, level not specified
CPT/HCPCS: 99283

== ENCOUNTER 2022-08-17 07:39 | Emergency (ER) | payer BC ==
[~2022-08-17] VITALS: Ht 157.5 cm; Wt 61.4 kg
[2022-08-17] MEDS ORDERED: ondansetron 4mg rapidly disintigrating tab PO ONE (08:40)
[2022-08-17 09:22] VITALS: BP 125/84
== END 2022-08-17 09:48 | disposition home or self-care (01) ==
LOC: ER 07:39
DX: S06.0X0A Concussion without loss of consciousness, initial encounter (principal); I10 Essential (primary) hypertension; K21.9 Gastro-esophageal reflux disease without esophagitis; Z59.00 Homelessness unspecified; Y08.89XA Assault by other specified means, initial encounter; Y93.89 Activity, other specified; Y92.89 Other specified places as the place of occurrence of the external cause; Y99.8 Other external cause status
CPT/HCPCS: 99283

== ENCOUNTER 2022-08-23 16:16 | Emergency (ER) | payer BC ==
[~2022-08-23] VITALS: Ht 170.2 cm; Wt 70.0 kg
[~2022-08-23 16:16] MED LIST changes: -LEVO-65 PO
[2022-08-23] MEDS ORDERED: normal saline 1000ml 1,000 ML IV ONE ×2 (16:50)
[2022-08-23 17:20] LABS: HEMOGLOBIN 7.4 g/dl (12.0-16.0)
[2022-08-23 17:23] LABS: BASOPHILS % (AUTO) 0.5 % (0-1); EOSINOPHILS # (AUTO) 0.2 X10'3 (0-0.9); EOSINOPHILS % (AUTO) 2.6 % (0-6); HEMATOCRIT 23.5 % (35.0-45.0); LYMPHOCYTES # (AUTO) 1.8 X10'3 (1.1-4.8); LYMPHOCYTES % (AUTO) 21.7 % (21-51); MEAN CORPUSCULAR HEMOGLOBIN 25.7 PG (27.0-31.0); MEAN CORPUSCULAR HGB CONC 31.7 g/dL (33.0-36.5); MEAN CORPUSCULAR VOLUME 81.2 FL (78-98); MEAN PLATELET VOLUME 6.7 FL (7.4-10.4); MONOCYTES # (AUTO) 0.5 X10'3 (0-0.9); MONOCYTES % (AUTO) 6.7 % (2-12); NEUTROPHILS # (AUTO) 5.6 X10'3 (1.8-7.7); NEUTROPHILS % (AUTO) 68.5 % (42-75); PLATELET COUNT 585 X10'3 (140-440); RED BLOOD COUNT 2.89 X10'6 (4.20-5.60); RED CELL DISTRIBUTION WIDTH 20.2 % (11.5-14.5); WHITE BLOOD COUNT 8.1 X10'3 (4.5-11.0)
[2022-08-23 17:37] LABS: ALANINE AMINOTRANSFERASE 17 U/L (12-78); ALBUMIN 2.6 G/DL (3.4-5.0); ALBUMIN/GLOBULIN RATIO 0.5 (1.1-1.5); ALKALINE PHOSPHATASE 83 IU/L (46-116); ANION GAP 11 (8-16); ASPARTATE AMINO TRANSFERASE 15 U/L (10-37); BILIRUBIN,TOTAL 0.2 MG/DL (0.1-1.0); BLOOD UREA NITROGEN 8 MG/DL (7-18); BUN/CREATININE RATIO 7.7 (6.6-38.0); CALCIUM 8.7 MG/DL (8.5-10.1); CHLORIDE 104 MMOL/L (99-107); CREATININE 1.04 MG/DL (0.40-0.90); ETHANOL 0.192 GM/DL (0.0-0.010); GLUCOSE 82 MG/DL (70-104); SODIUM 139 MMOL/L (135-145); TOTAL CARBON DIOXIDE 23.6 MMOL/L (24-32); TOTAL PROTEIN 7.4 G/DL (6.4-8.2); eGFR 54 ML/MIN
[2022-08-23 17:58] VITALS: BP 111/68
[2022-08-23 18:16] LABS: ANISOCYTOSIS 3+; PLATELET ESTIMATE INCREASED
[2022-08-23 18:33] LABS: ELLIPTOCYTES FEW; POLYCHROMASIA FEW
[2022-08-26] MEDS ORDERED: PANT-47 PO ×2 (09:34→09:45)
== END 2022-08-23 18:09 | disposition home or self-care (01) ==
LOC: ER 16:17
DX: F10.129 Alcohol abuse with intoxication, unspecified (principal); R41.0 Disorientation, unspecified; I10 Essential (primary) hypertension; K21.9 Gastro-esophageal reflux disease without esophagitis; F41.9 Anxiety disorder, unspecified; F32.9 Major depressive disorder, single episode, unspecified; Z98.890 Other specified postprocedural states; Z59.00 Homelessness unspecified; Z79.899 Other long term (current) drug therapy; Y90.9 Presence of alcohol in blood, level not specified
CPT/HCPCS: 36415; 80053; 80320; 83735; 85008; 85025; 96360; 99284; J7030

== ENCOUNTER 2022-08-24 16:10 | Emergency (ER) | payer BC ==
[~2022-08-24] VITALS: Ht 157.5 cm; Wt 59.0 kg
[2022-08-24 17:43] VITALS: BP 145/96
[2022-08-24 18:09] LABS: CLARITY,URINE SLIGHTLY CLOUDY (Clear); COLOR,URINE YELLOW (Yellow); GLUCOSE, URINE NEGATIVE (Neg); KETONES,URINE NEGATIVE (Neg); LEUKOCYTE ESTERASE ,URINE NEGATIVE (Neg); NITRITES, URINE NEGATIVE (Neg); OCCULT BLOOD,URINE SMALL (Neg); PROTEIN,URINE NEGATIVE (Neg); URINE HCG NEGATIVE (NEG); UROBILINOGEN,URINE 0.2 E.U/dL (0.2-1.0)
[2022-08-24 18:13] LABS: UA COLLECTION TYPE CLN CATCH MIDSTREAM
[2022-08-24 18:14] LABS: BACTERIA,URINE FEW /HPF (Neg); WBC,URINE 0-4 /HPF (0-4)
[2022-08-24 18:15] LABS: MUCUS STRANDS FEW /LPF (Neg); SQUAMOUS EPITHELIAL CELL,UR MANY /LPF (FEW)
[2022-08-26] MEDS ORDERED: PANT-47 PO ×2 (09:34→09:45)
== END 2022-08-24 23:59 | disposition left against medical advice (07) ==
LOC: ER 16:10
DX: R10.9 Unspecified abdominal pain (principal); R11.10 Vomiting, unspecified; Z53.21 Procedure and treatment not carried out due to patient leaving prior to being seen by health care provider
CPT/HCPCS: 81001; 81025

== ENCOUNTER 2022-08-26 07:15 | Emergency (ER) | payer BC ==
[~2022-08-26] VITALS: Ht 157.5 cm; Wt 59.0 kg
[2022-08-26 09:00] VITALS: BP 130/66
[2022-08-26] MEDS ORDERED: pantoprazole 40mg Tablet.DR PO ONE (09:25)
[2022-08-26] MEDS ORDERED: PANT-47 PO ×4 (09:34→09:45)
[2022-08-30] MEDS ORDERED: SULF1TAB49 PO (21:56)
[2022-08-30] MEDS ORDERED: MULT1CAP66 (21:57)
[2022-08-30] MEDS ORDERED: FERR325T28 PO (21:57)
[2022-08-30] MEDS ORDERED: POTA-207 PO (22:00)
[2022-08-30] MEDS ORDERED: MAGN400C PO (22:02)
[2022-08-30] MEDS ORDERED: PANT40TA54 PO (22:05)
[2022-08-30] MEDS ORDERED: PYRI25TA4 PO (22:06)
[2022-08-30] MEDS ORDERED: SERT25TA PO (22:07)
[2022-08-30] MEDS ORDERED: OMEP40CA21 PO (22:14)
[2022-08-30] MEDS ORDERED: FOLI1TAB27 PO (22:18)
[2022-08-30] MEDS ORDERED: FOLI0.4T6 PO (22:19)
== END 2022-08-26 10:22 | disposition home or self-care (01) ==
LOC: ER 07:16
DX: Z02.89 Encounter for other administrative examinations (principal); R07.89 Other chest pain; R10.13 Epigastric pain; I10 Essential (primary) hypertension; K21.9 Gastro-esophageal reflux disease without esophagitis; F41.9 Anxiety disorder, unspecified; F32.A Depression, unspecified; F17.200 Nicotine dependence, unspecified, uncomplicated; Z87.01 Personal history of pneumonia (recurrent); Z85.41 Personal history of malignant neoplasm of cervix uteri; Z98.890 Other specified postprocedural states; Z72.89 Other problems related to lifestyle; Z59.00 Homelessness unspecified; Z79.899 Other long term (current) drug therapy
CPT/HCPCS: 93005; 99284

== ENCOUNTER 2023-06-15 07:52 | Emergency (ER) | payer BC, MEDICAID ==
[~2023-06-15] VITALS: Ht 154.9 cm; Wt 59.1 kg
[~2023-06-15 07:52] MED LIST changes: -AMLO5TAB4 PO; +BUSP15TA3 PO; +CEPH500C2 PO; +CLON0.1T2 PO; +DULO30CA52 PO; +FER325T PO; +FOLI0.4T6 PO; +FOLI0.8C PO; -FOLI1TAB27 PO; -HYDR-3965 PO; +METO10TA3 PO; +MIRT-87 PO; +MULT-25 PO; +OMEP40CA21 PO; -ONDA8TAB13 PO; -PANT-47 PO; +PANT40TA54 PO; +POTA-207 PO
[2023-06-15] MEDS ORDERED: amox tr/potassium clavulanate 875/125mg TAB PO ONE (09:10)
[2023-06-15] MEDS ORDERED: ibuprofen tablet 400 MG TABLET PO ONE (09:10)
[2023-06-15] MEDS ORDERED: IBUP-1984 PO (09:14)
[2023-06-15] MEDS ORDERED: AZIT250T27 PO (09:14)
[2023-06-15 09:50] VITALS: BP 132/98; PULSE 120; RESP 16; TEMP 97.9; O2SAT 98
== END 2023-06-15 09:51 | disposition home or self-care (01) ==
LOC: ER 07:53
DX: H66.92 Otitis media, unspecified, left ear (principal); I11.0 Hypertensive heart disease with heart failure; F31.9 Bipolar disorder, unspecified; Z79.899 Other long term (current) drug therapy
CPT/HCPCS: 99283

== ENCOUNTER 2023-06-28 13:51 | Emergency (ER) | payer BC, MEDICAID ==
[~2023-06-28] VITALS: Ht 157.5 cm; Wt 53.4 kg
[~2023-06-28 13:51] MED LIST changes: +IBUP-1984 PO
[2023-06-28 15:09] LABS: D-DIMER < 0.19 MG/L FEU (0-0.50)
[2023-06-28 15:10] LABS: BASOPHILS # (AUTO) 0.1 X10'3 (0-0.2); EOSINOPHILS # (AUTO) 0.1 X10'3 (0-0.9); EOSINOPHILS % (AUTO) 1.5 % (0-6); HEMATOCRIT 35.9 % (35.0-45.0); HEMOGLOBIN 12.1 g/dl (12.0-16.0); LYMPHOCYTES # (AUTO) 1.9 X10'3 (1.1-4.8); MEAN CORPUSCULAR HEMOGLOBIN 29.7 PG (27.0-31.0); MEAN CORPUSCULAR HGB CONC 33.7 g/dL (33.0-36.5); MEAN PLATELET VOLUME 7.6 FL (7.4-10.4); MONOCYTES # (AUTO) 0.5 X10'3 (0-0.9); MONOCYTES % (AUTO) 8.5 % (2-12); NEUTROPHILS # (AUTO) 3.6 X10'3 (1.8-7.7); PLATELET COUNT 434 X10'3 (140-440); RED BLOOD COUNT 4.08 X10'6 (4.20-5.60); RED CELL DISTRIBUTION WIDTH 14.6 % (11.5-14.5); WHITE BLOOD COUNT 6.2 X10'3 (4.5-11.0)
[2023-06-28 15:15] LABS: ALANINE AMINOTRANSFERASE 15 U/L (12-78); ALBUMIN 3.9 G/DL (3.4-5.0); ALKALINE PHOSPHATASE 90 IU/L (46-116); ANION GAP 11 (8-16); ASPARTATE AMINO TRANSFERASE 14 U/L (10-37); BILIRUBIN,TOTAL 0.3 MG/DL (0.1-1.0); BLOOD UREA NITROGEN 43 MG/DL (7-18); BUN/CREATININE RATIO 26.5 (10.0-20.0); CALCIUM 9.2 MG/DL (8.5-10.1); CHLORIDE 105 MMOL/L (99-107); CREATININE 1.62 MG/DL (0.40-0.90); GLUCOSE 60 MG/DL (70-104); POTASSIUM 3.9 MMOL/L (3.5-5.1); SODIUM 142 MMOL/L (135-145); TOTAL CARBON DIOXIDE 26.2 MMOL/L (24-32); TOTAL PROTEIN 7.9 G/DL (6.4-8.2); eCRCL 30 ML/MIN; eGFR 33 ML/MIN
[2023-06-28] MEDS ORDERED: normal saline 1000ML IV soln IVB ONE (15:25)
--- NOTE | 2023-06-28 16:13 | NUR ---
Notified pavithra de jesus to admin total 2 l of n.s and recheck the BP.
[2023-06-28] MEDS ORDERED: normal saline 1000ml 1,000 ML IV ONE (16:50)
[2023-06-28 19:14] VITALS: BP 111/62; PULSE 82; RESP 18; TEMP 97.7; O2SAT 100
== END 2023-06-28 19:18 | disposition home or self-care (01) ==
LOC: ER 13:52
DX: N28.9 Disorder of kidney and ureter, unspecified (principal); I95.1 Orthostatic hypotension; I10 Essential (primary) hypertension; K21.9 Gastro-esophageal reflux disease without esophagitis; F41.9 Anxiety disorder, unspecified; Z79.899 Other long term (current) drug therapy
CPT/HCPCS: 36415; 80053; 82948; 84484; 85025; 85379; 93005; 96360; 96361; 99285; J7030

== ENCOUNTER 2023-09-03 08:51 | Emergency (ER) | payer BC, MEDICAID ==
[~2023-09-03] VITALS: Ht 157.5 cm; Wt 56.8 kg
[~2023-09-03 08:51] MED LIST changes: -IBUP-1984 PO
[2023-09-03 08:59] VITALS: BP 125/77; PULSE 77; TEMP 96.9; O2SAT 100
[2023-09-03 09:53] LABS: BASOPHILS # (AUTO) 0.1 X10'3 (0-0.2); BASOPHILS % (AUTO) 1.3 % (0-1); EOSINOPHILS # (AUTO) 0.2 X10'3 (0-0.9); HEMATOCRIT 33.5 % (35.0-45.0); HEMOGLOBIN 10.9 g/dl (12.0-16.0); LYMPHOCYTES # (AUTO) 1.6 X10'3 (1.1-4.8); MEAN CORPUSCULAR HEMOGLOBIN 28.8 PG (27.0-31.0); MEAN CORPUSCULAR HGB CONC 32.6 g/dL (33.0-36.5); MEAN CORPUSCULAR VOLUME 88.3 FL (78-98); MEAN PLATELET VOLUME 7.1 FL (7.4-10.4); MONOCYTES # (AUTO) 0.4 X10'3 (0-0.9); MONOCYTES % (AUTO) 8.4 % (2-12); NEUTROPHILS % (AUTO) 56.3 % (42-75); PLATELET COUNT 319 X10'3 (140-440); RED BLOOD COUNT 3.79 X10'6 (4.20-5.60); RED CELL DISTRIBUTION WIDTH 13.9 % (11.5-14.5); WHITE BLOOD COUNT 5.3 X10'3 (4.5-11.0)
[2023-09-03 10:04] LABS: ALBUMIN 3.7 G/DL (3.4-5.0); BLOOD UREA NITROGEN 21 MG/DL (7-18); BUN/CREATININE RATIO 24.4 (10.0-20.0); CREATININE 0.86 MG/DL (0.40-0.90); GLUCOSE 91 MG/DL (70-104); POTASSIUM 3.9 MMOL/L (3.5-5.1); SODIUM 141 MMOL/L (135-145); TOTAL CARBON DIOXIDE 30.3 MMOL/L (24-32); eCRCL 56 ML/MIN; eGFR 68 ML/MIN
[2023-09-03 10:17] LABS: ANION GAP 7 (8-16); CHLORIDE 104 MMOL/L (99-107)
[2023-09-03 10:25] LABS: C-REACTIVE PROTEIN < 0.05 MG/DL (0.0-0.5)
[2023-09-03 11:54] VITALS: RESP 16
[2023-09-03] MEDS: ketorolac trometh inj. 60 MG/2 ML VIAL IM ONE (11:54)
[2023-09-03] MEDS: diphenhydrAMINE 50 mg/ml inj IM ONE (11:55)
== END 2023-09-03 12:16 | disposition home or self-care (01) ==
LOC: ER 08:52
DX: G43.909 Migraine, unspecified, not intractable, without status migrainosus (principal); I10 Essential (primary) hypertension; K21.9 Gastro-esophageal reflux disease without esophagitis; Z88.0 Allergy status to penicillin; Z79.2 Long term (current) use of antibiotics; Z79.899 Other long term (current) drug therapy
CPT/HCPCS: 36415; 70450; 80048; 85025; 85651; 86140; 96372; 99285; J1200; J1885

== ENCOUNTER 2023-12-07 21:16 | Emergency (ER) | payer BC, MEDICAID ==
[~2023-12-07] VITALS: Ht 160 cm; Wt 61.8 kg
[2023-12-07] MEDS: ondansetron/PF 4mg/2ml inj IV ONE (23:04)
[2023-12-07] MEDS: normal saline 1000ml 1,000 ML IV ONE (23:04)
[2023-12-07 23:41] LABS: BASOPHILS # (AUTO) 0.2 X10'3 (0-0.2); BASOPHILS % (AUTO) 1.7 % (0-1); EOSINOPHILS % (AUTO) 0 % (0-6); HEMATOCRIT 33.4 % (35.0-45.0); HEMOGLOBIN 11.1 g/dl (12.0-16.0); LYMPHOCYTES # (AUTO) 1.2 X10'3 (1.1-4.8); LYMPHOCYTES % (AUTO) 10.4 % (21-51); MEAN CORPUSCULAR HEMOGLOBIN 29.2 PG (27.0-31.0); MEAN CORPUSCULAR HGB CONC 33.4 g/dL (33.0-36.5); MEAN CORPUSCULAR VOLUME 87.6 FL (78-98); MEAN PLATELET VOLUME 6.8 FL (7.4-10.4); MONOCYTES # (AUTO) 0.5 X10'3 (0-0.9); MONOCYTES % (AUTO) 4.6 % (2-12); NEUTROPHILS # (AUTO) 9.5 X10'3 (1.8-7.7); NEUTROPHILS % (AUTO) 83.3 % (42-75); PLATELET COUNT 503 X10'3 (140-440); RED BLOOD COUNT 3.81 X10'6 (4.20-5.60); RED CELL DISTRIBUTION WIDTH 15.4 % (11.5-14.5); WHITE BLOOD COUNT 11.4 X10'3 (4.5-11.0)
[2023-12-07] MEDS: normal saline 1000ML IV soln IVB ONE (23:44)
[2023-12-07 23:48] LABS: ALBUMIN 3.7 G/DL (3.4-5.0); ANION GAP 11 (8-16); BLOOD UREA NITROGEN 11 MG/DL (7-18); BUN/CREATININE RATIO 12.6 (10.0-20.0); CALCIUM 8.9 MG/DL (8.5-10.1); CHLORIDE 96 MMOL/L (99-107); CREATININE 0.87 MG/DL (0.40-0.90); ETHANOL 187 MG/DL (<10); GLUCOSE 107 MG/DL (70-104); POTASSIUM 3.1 MMOL/L (3.5-5.1); SODIUM 138 MMOL/L (135-145); TOTAL CARBON DIOXIDE 30.8 MMOL/L (24-32); eCRCL 57 ML/MIN; eGFR 66 ML/MIN
[2023-12-08 01:07] LABS: ALANINE AMINOTRANSFERASE 13 U/L (12-78); ALBUMIN 3.4 G/DL (3.4-5.0); ALBUMIN/GLOBULIN RATIO 0.9 (1.1-1.5); ALKALINE PHOSPHATASE 73 IU/L (46-116); ANION GAP 10 (8-16); ASPARTATE AMINO TRANSFERASE 12 U/L (10-37); BILIRUBIN,TOTAL 0.3 MG/DL (0.1-1.0); BLOOD UREA NITROGEN 12 MG/DL (7-18); BUN/CREATININE RATIO 14.3 (10.0-20.0); CALCIUM 8.7 MG/DL (8.5-10.1); CHLORIDE 99 MMOL/L (99-107); CREATININE 0.84 MG/DL (0.40-0.90); GLUCOSE 104 MG/DL (70-104); POTASSIUM 3.3 MMOL/L (3.5-5.1); SODIUM 139 MMOL/L (135-145); TOTAL CARBON DIOXIDE 30.5 MMOL/L (24-32); TOTAL PROTEIN 7.1 G/DL (6.4-8.2); eCRCL 59 ML/MIN; eGFR 69 ML/MIN
[2023-12-08 01:08] LABS: AMMONIA < 10 UMOL/L (11-32)
[2023-12-08 01:09] LABS: LIPASE 37 U/L (16-77)
[2023-12-08 01:55] LABS: BILIRUBIN,URINE NEGATIVE (Neg); CLARITY,URINE SLIGHTLY CLOUDY (Clear); COLOR,URINE YELLOW (Yellow); GLUCOSE, URINE NEGATIVE (Neg); KETONES,URINE NEGATIVE (Neg); LEUKOCYTE ESTERASE ,URINE TRACE (Neg); NITRITES, URINE NEGATIVE (Neg); OCCULT BLOOD,URINE SMALL (Neg); PROTEIN,URINE NEGATIVE (Neg); URINE HCG NEGATIVE (NEG); UROBILINOGEN,URINE 0.2 E.U/dL (0.2-1.0)
[2023-12-08 02:12] LABS: URINE AMPHETAMINE SCREEN NEGATIVE (Neg); URINE BARBITUATE SCREEN NEGATIVE (Neg); URINE BENZODIAZEPINES SCREEN NEGATIVE (Neg); URINE CANNABINOID SCREEN NEGATIVE (Neg); URINE COCAINE SCREEN NEGATIVE (Neg); URINE METHADONE SCREEN NEGATIVE (Neg); URINE OPIATE SCREEN NEGATIVE (Neg); URINE PHENCYCLIDINE SCREEN NEGATIVE (Neg)
[2023-12-08 02:20] LABS: UA COLLECTION TYPE CLN CATCH MIDSTREAM
[2023-12-08 02:21] LABS: MUCUS STRANDS FEW /LPF (Neg); SQUAMOUS EPITHELIAL CELL,UR MODERATE /LPF (FEW)
[2023-12-08 02:22] LABS: BACTERIA,URINE FEW /HPF (Neg); WBC,URINE 0-4 /HPF (0-4)
[2023-12-08] MEDS: POTASSIUM BICARB 20meq eff tab 20 MEQ TABLET.EFF PO SCH (04:21)
[2023-12-08] MEDS: normal saline 1000ml 1,000 ML IV ONE (04:23)
[2023-12-08] MEDS: ondansetron/PF 4mg/2ml inj IV ONE ×2 (04:40→07:43)
[2023-12-08] MEDS ORDERED: FOLI1TAB27 PO (04:53)
[2023-12-08] MEDS ORDERED: LISI20TA28 PO (04:53)
[2023-12-08] MEDS ORDERED: CYAN-104 PO (04:53)
[2023-12-08] MEDS ORDERED: THIA100T66 PO (04:53)
[2023-12-08] MEDS ORDERED: PANT-47 PO (04:53)
[2023-12-08] MEDS: cefepime 2g/NS 100ml ADVANTAGE 100 ML IV SCH (05:09)
[2023-12-08] MEDS: VANCOMYCIN 1,500MG in NS 300ml IVPB IV ONE (05:46)
[2023-12-08] MEDS: mag hydrox/Alum hydrox/simeth 30ml oral suspension PO ONE (07:44)
[2023-12-08] MEDS: LIDOcaine 2% Viscous 15ml cup MM ONE (07:44)
[2023-12-08 08:31] VITALS: BP 153/115; PULSE 87; RESP 14; TEMP 97.7; O2SAT 98
== END 2023-12-08 08:42 | disposition home or self-care (01) ==
LOC: ER 21:17
DX: F10.129 Alcohol abuse with intoxication, unspecified (principal); E86.0 Dehydration; I10 Essential (primary) hypertension; K21.9 Gastro-esophageal reflux disease without esophagitis; Z88.0 Allergy status to penicillin; Z79.899 Other long term (current) drug therapy; Y90.9 Presence of alcohol in blood, level not specified
CPT/HCPCS: 36415; 70450; 71045; 80048; 80053; 80305; 80320; 81001; 81025; 82140; 82948; 83605; 83690; 84145; 84484; 85025; 87040; 87088; 93005; 96361; 96365; 96366; 96367; 96375; 96376; 99285; J0692; J2405; J3370; J7030; J7040

== ENCOUNTER 2023-12-28 23:20 | Emergency (ER) | payer BC, MEDICAID ==
[~2023-12-28] VITALS: Ht 157.5 cm; Wt 63.0 kg
[~2023-12-28 23:20] MED LIST changes: -BUSP15TA3 PO; -CEPH500C2 PO; -CLON0.1T2 PO; +CYAN-104 PO; -DULO30CA52 PO; -FER325T PO; -FOLI0.4T6 PO; -FOLI0.8C PO; +FOLI1TAB27 PO; +LISI20TA28 PO; -METO10TA3 PO; -MIRT-87 PO; -MULT-25 PO; -OMEP40CA21 PO; +PANT-47 PO; -PANT40TA54 PO; -POTA-207 PO; +THIA100T66 PO; -thiamine tablet PO
[2023-12-28 23:25] VITALS: TEMP 98.4
[2023-12-28 23:42] LABS: BASOPHILS % (AUTO) 0.9 % (0-1); EOSINOPHILS % (AUTO) 0.8 % (0-6); HEMOGLOBIN 10.4 g/dl (12.0-16.0); LYMPHOCYTES # (AUTO) 1.9 X10'3 (1.1-4.8); LYMPHOCYTES % (AUTO) 36.2 % (21-51); MEAN CORPUSCULAR HEMOGLOBIN 29.2 PG (27.0-31.0); MEAN CORPUSCULAR HGB CONC 33.5 g/dL (33.0-36.5); MEAN CORPUSCULAR VOLUME 87.1 FL (78-98); MEAN PLATELET VOLUME 6.3 FL (7.4-10.4); MONOCYTES # (AUTO) 0.4 X10'3 (0-0.9); MONOCYTES % (AUTO) 7.4 % (2-12); NEUTROPHILS # (AUTO) 2.9 X10'3 (1.8-7.7); NEUTROPHILS % (AUTO) 54.7 % (42-75); PLATELET COUNT 485 X10'3 (140-440); RED BLOOD COUNT 3.56 X10'6 (4.20-5.60); RED CELL DISTRIBUTION WIDTH 15.2 % (11.5-14.5); WHITE BLOOD COUNT 5.4 X10'3 (4.5-11.0)
[2023-12-28 23:56] LABS: ALANINE AMINOTRANSFERASE 18 U/L (12-78); ALBUMIN 3.3 G/DL (3.4-5.0); ALBUMIN/GLOBULIN RATIO 0.8 (1.1-1.5); ALKALINE PHOSPHATASE 75 IU/L (46-116); ANION GAP 11 (8-16); ASPARTATE AMINO TRANSFERASE 19 U/L (10-37); BILIRUBIN,TOTAL 0.2 MG/DL (0.1-1.0); BLOOD UREA NITROGEN 19 MG/DL (7-18); BUN/CREATININE RATIO 19.6 (10.0-20.0); CALCIUM 8.1 MG/DL (8.5-10.1); CHLORIDE 103 MMOL/L (99-107); CREATININE 0.97 MG/DL (0.40-0.90); GLUCOSE 123 MG/DL (70-104); POTASSIUM 3.2 MMOL/L (3.5-5.1); SODIUM 142 MMOL/L (135-145); TOTAL CARBON DIOXIDE 27.6 MMOL/L (24-32); TOTAL PROTEIN 7.4 G/DL (6.4-8.2); eCRCL 49 ML/MIN; eGFR 59 ML/MIN
[2023-12-29 00:05] LABS: PRO BRAIN NATRIURETIC PEPTIDE 31 PG/ML (0-125)
[2023-12-29] MEDS: metoclopramide 5 mg/ml inj IV ONE (00:25)
[2023-12-29] MEDS: LIDOcaine 2% Viscous 15ml cup MM ONE (00:27)
[2023-12-29] MEDS: mag hydrox/Alum hydrox/simeth 30ml oral suspension PO ONE (00:27)
[2023-12-29] MEDS: pantoprazole 40 MG vial IV ONE (00:28)
[2023-12-29] MEDS: normal saline 1000ML IV soln IVB ONE (00:28)
[2023-12-29] MEDS: LORazepam 2 mg/ml vial IV ONE (00:29)
[2023-12-29 00:44] LABS: LIPASE 52 U/L (16-77)
[2023-12-29 00:46] LABS: ETHANOL 374 MG/DL (<10)
[2023-12-29] MEDS: diazepam inj 5 MG/ML inj. IV ONE (00:49)
[2023-12-29] MEDS: potassium Cl 20 mEq SR tablet PO STA (05:37)
[2023-12-29 06:35] VITALS: BP 124/89; PULSE 92; RESP 19; O2SAT 89
[2023-12-29] MEDS ORDERED: METO5TAB98 PO (06:35)
[2023-12-29] MEDS ORDERED: PANT-47 PO (06:35)
== END 2023-12-29 07:06 | disposition home or self-care (01) ==
LOC: ER 23:21
DX: R07.89 Other chest pain (principal); R11.2 Nausea with vomiting, unspecified; F10.10 Alcohol abuse, uncomplicated; I10 Essential (primary) hypertension; K21.9 Gastro-esophageal reflux disease without esophagitis; Y90.9 Presence of alcohol in blood, level not specified
CPT/HCPCS: 36415; 71045; 80053; 80320; 83690; 83880; 84484; 85025; 93005; 96365; 96375; 99285; C9113; J2765; J3360; J7030

== ENCOUNTER 2024-01-07 18:42 | Emergency (ER) | payer BC, MEDICAID ==
[~2024-01-07 18:42] MED LIST changes: +METO5TAB98 PO
[2024-01-20] MEDS ORDERED: FE F PO (12:07)
[2024-01-20] MEDS ORDERED: PANT-47 PO (12:07)
== END 2024-01-07 23:59 | disposition left against medical advice (07) ==
LOC: ER 18:42
DX: R69 Illness, unspecified (principal); Z53.21 Procedure and treatment not carried out due to patient leaving prior to being seen by health care provider
CPT/HCPCS: 99283

== ENCOUNTER 2024-02-10 06:06 | Emergency (ER) | payer BC, MEDICAID ==
[~2024-02-10] VITALS: Ht 157.5 cm; Wt 58.3 kg
[~2024-02-10 06:06] MED LIST changes: -CYAN-104 PO; +FE F PO; -FOLI1TAB27 PO; -LISI20TA28 PO; -METO5TAB98 PO; -THIA100T66 PO
[2024-02-10 07:33] VITALS: BP 142/99; PULSE 102; RESP 16; TEMP 97.8; O2SAT 98
== END 2024-02-10 07:36 | disposition home or self-care (01) ==
LOC: ER 06:07
DX: R41.0 Disorientation, unspecified (principal); I10 Essential (primary) hypertension; K21.9 Gastro-esophageal reflux disease without esophagitis; F41.9 Anxiety disorder, unspecified; Z88.0 Allergy status to penicillin; Z79.899 Other long term (current) drug therapy; Z59.00 Homelessness unspecified; Z98.890 Other specified postprocedural states
CPT/HCPCS: 99284

== ENCOUNTER 2024-02-19 09:48 | Emergency (ER) | payer BC, MEDICAID ==
[~2024-02-19] VITALS: Ht 157.5 cm; Wt 54.5 kg
[2024-02-19 10:29] LABS: BASOPHILS % (AUTO) 0.6 % (0-1); EOSINOPHILS % (AUTO) 0.5 % (0-6); HEMATOCRIT 31.1 % (35.0-45.0); LYMPHOCYTES # (AUTO) 0.9 X10'3 (1.1-4.8); LYMPHOCYTES % (AUTO) 14.1 % (21-51); MEAN CORPUSCULAR HEMOGLOBIN 27.5 PG (27.0-31.0); MEAN CORPUSCULAR HGB CONC 32.1 g/dL (33.0-36.5); MEAN CORPUSCULAR VOLUME 85.6 FL (78-98); MEAN PLATELET VOLUME 6.6 FL (7.4-10.4); MONOCYTES # (AUTO) 0.9 X10'3 (0-0.9); MONOCYTES % (AUTO) 13.7 % (2-12); NEUTROPHILS # (AUTO) 4.4 X10'3 (1.8-7.7); NEUTROPHILS % (AUTO) 71.1 % (42-75); PLATELET COUNT 319 X10'3 (140-440); RED BLOOD COUNT 3.64 X10'6 (4.20-5.60); RED CELL DISTRIBUTION WIDTH 18.1 % (11.5-14.5); WHITE BLOOD COUNT 6.3 X10'3 (4.5-11.0)
[2024-02-19 10:44] LABS: ALANINE AMINOTRANSFERASE 37 U/L (12-78); ALBUMIN 3.5 G/DL (3.4-5.0); ALBUMIN/GLOBULIN RATIO 0.9 (1.1-1.5); ALKALINE PHOSPHATASE 60 IU/L (46-116); AMYLASE 77 U/L (25-115); ANION GAP 15 (8-16); ASPARTATE AMINO TRANSFERASE 25 U/L (10-37); BILIRUBIN,TOTAL 0.3 MG/DL (0.1-1.0); BLOOD UREA NITROGEN 4 MG/DL (7-18); BUN/CREATININE RATIO 4.5 (10.0-20.0); CALCIUM 9.1 MG/DL (8.5-10.1); CHLORIDE 95 MMOL/L (99-107); CREATININE 0.88 MG/DL (0.40-0.90); GLUCOSE 88 MG/DL (70-104); LIPASE 40 U/L (16-77); SODIUM 134 MMOL/L (135-145); TOTAL CARBON DIOXIDE 24.5 MMOL/L (24-32); TOTAL PROTEIN 7.4 G/DL (6.4-8.2); eCRCL 54 ML/MIN; eGFR 66 ML/MIN
[2024-02-19 10:50] LABS: POTASSIUM 2.5 MMOL/L (3.5-5.1)
[2024-02-19] MEDS ORDERED: potassium Cl 20mEq/100mL bag 100 ML IV SCH (11:00)
[2024-02-19] MEDS: potassium Cl 20 mEq SR tablet PO STA (11:19)
[2024-02-19] MEDS: mag hydrox/Alum hydrox/simeth 30ml oral suspension PO ONE ×2 (11:19→12:41)
[2024-02-19] MEDS: LIDOcaine 2% Viscous 15ml cup MM PRN (11:19)
[2024-02-19] MEDS: potassium CL 10mEq/100ml bag 100 ML IV SCH (11:52)
[2024-02-19 12:27] LABS: BILIRUBIN,URINE NEGATIVE (Neg); CLARITY,URINE CLEAR (Clear); COLOR,URINE STRAW (Yellow); GLUCOSE, URINE NEGATIVE (Neg); KETONES,URINE NEGATIVE (Neg); LEUKOCYTE ESTERASE ,URINE SMALL (Neg); NITRITES, URINE NEGATIVE (Neg); OCCULT BLOOD,URINE MODERATE (Neg); PH,URINE 6.5 (4.8-8.0); PROTEIN,URINE NEGATIVE (Neg); UROBILINOGEN,URINE 0.2 E.U/dL (0.2-1.0)
[2024-02-19] MEDS: dicyclomine 10 MG capsule PO ONE (12:41)
[2024-02-19] MEDS: pantoprazole 40mg Tablet.DR PO ONE (12:41)
[2024-02-19 12:43] LABS: UA COLLECTION TYPE CLN CATCH MIDSTREAM
[2024-02-19 12:54] LABS: SQUAMOUS EPITHELIAL CELL,UR MODERATE /LPF (FEW)
[2024-02-19 13:01] LABS: BACTERIA,URINE 2+ /HPF (Neg); RBC,URINE 0-2 /HPF (0-2)
[2024-02-19] MEDS ORDERED: OMEP40CA21 PO (15:52)
[2024-02-19] MEDS ORDERED: DICY20TA17 PO (15:52)
[2024-02-19] MEDS ORDERED: POTA-208 PO (15:52)
[2024-02-19 16:10] VITALS: BP 113/79; PULSE 86; RESP 12; TEMP 97.3; O2SAT 99
== END 2024-02-19 16:29 | disposition home or self-care (01) ==
LOC: ER 09:49
DX: K21.9 Gastro-esophageal reflux disease without esophagitis (principal); E87.6 Hypokalemia; I10 Essential (primary) hypertension; F41.9 Anxiety disorder, unspecified; F32.A Depression, unspecified; Z88.0 Allergy status to penicillin; Z79.899 Other long term (current) drug therapy; Z90.49 Acquired absence of other specified parts of digestive tract
CPT/HCPCS: 36415; 80053; 81001; 82150; 83690; 84132; 85025; 87088; 87186; 93005; 96365; 96366; 99285; J3480; J7030; 87077

== ENCOUNTER 2024-02-25 21:22 | Emergency (ER) | payer BC, MEDICAID ==
[~2024-02-25] VITALS: Ht 157.5 cm; Wt 62.7 kg
[~2024-02-25 21:22] MED LIST changes: +DICY20TA17 PO; +OMEP40CA21 PO; +POTA-208 PO
[2024-02-25 21:45] VITALS: BP 107/79; PULSE 89; RESP 16; TEMP 98.8; O2SAT 94
== END 2024-02-25 23:28 | disposition left against medical advice (07) ==
LOC: ER 21:22
DX: F41.9 Anxiety disorder, unspecified (principal); Z53.21 Procedure and treatment not carried out due to patient leaving prior to being seen by health care provider; Z88.0 Allergy status to penicillin

== ENCOUNTER 2024-02-26 13:47 | Emergency (ER) | payer BC, MEDICAID ==
[~2024-02-26] VITALS: Ht 157.5 cm; Wt 57.2 kg
[2024-02-26 13:53] VITALS: BP 129/90; PULSE 89; RESP 18; O2SAT 95
[2024-02-26] MEDS: mag hydrox/Alum hydrox/simeth 30ml oral suspension PO ONE (14:24)
[2024-02-26] MEDS: LIDOcaine 2% Viscous 15ml cup MM ONE (14:24)
[2024-02-26] MEDS: famotidine 20mg tablet PO ONE (14:25)
[2024-02-26 14:41] VITALS: TEMP 98.2
== END 2024-02-26 14:44 | disposition home or self-care (01) ==
LOC: ER 13:48
DX: J39.2 Other diseases of pharynx (principal); K21.9 Gastro-esophageal reflux disease without esophagitis; F10.129 Alcohol abuse with intoxication, unspecified; I10 Essential (primary) hypertension; F41.9 Anxiety disorder, unspecified; F32.A Depression, unspecified; Z98.890 Other specified postprocedural states; Z85.89 Personal history of malignant neoplasm of other organs and systems; Z59.00 Homelessness unspecified; Z88.0 Allergy status to penicillin; Z79.899 Other long term (current) drug therapy
CPT/HCPCS: 93005; 99283

== ENCOUNTER 2024-02-28 22:44 | Emergency (ER) | payer BC, MEDICAID ==
[~2024-02-28] VITALS: Ht 157.5 cm; Wt 59.5 kg
[2024-02-28 23:29] LABS: BASOPHILS # (AUTO) 0.1 X10'3 (0-0.2); BASOPHILS % (AUTO) 1.1 % (0-1); EOSINOPHILS % (AUTO) 0.3 % (0-6); HEMATOCRIT 28.3 % (35.0-45.0); HEMOGLOBIN 9.1 g/dl (12.0-16.0); LYMPHOCYTES # (AUTO) 1.2 X10'3 (1.1-4.8); LYMPHOCYTES % (AUTO) 21.6 % (21-51); MEAN CORPUSCULAR HEMOGLOBIN 27.1 PG (27.0-31.0); MEAN CORPUSCULAR HGB CONC 32.3 g/dL (33.0-36.5); MEAN CORPUSCULAR VOLUME 83.8 FL (78-98); MEAN PLATELET VOLUME 6.4 FL (7.4-10.4); MONOCYTES # (AUTO) 0.8 X10'3 (0-0.9); MONOCYTES % (AUTO) 13.9 % (2-12); NEUTROPHILS # (AUTO) 3.6 X10'3 (1.8-7.7); NEUTROPHILS % (AUTO) 63.1 % (42-75); PLATELET COUNT 340 X10'3 (140-440); RED BLOOD COUNT 3.37 X10'6 (4.20-5.60); WHITE BLOOD COUNT 5.8 X10'3 (4.5-11.0)
[2024-02-28] MEDS: normal saline 1000ML IV soln IVB ONE (23:31)
[2024-02-28] MEDS: normal saline 1000ml 1,000 ML IV ONE (23:31)
[2024-02-28 23:38] LABS: ANION GAP 13 (8-16); BLOOD UREA NITROGEN 8 MG/DL (7-18); BUN/CREATININE RATIO 10.8 (10.0-20.0); CALCIUM 8.3 MG/DL (8.5-10.1); CHLORIDE 101 MMOL/L (99-107); CREATININE 0.74 MG/DL (0.40-0.90); GLUCOSE 96 MG/DL (70-104); LIPASE 123 U/L (16-77); MAGNESIUM 2.2 MG/DL (1.5-2.4); POTASSIUM 3.5 MMOL/L (3.5-5.1); SODIUM 138 MMOL/L (135-145); TOTAL CARBON DIOXIDE 24.3 MMOL/L (24-32); eCRCL 64 ML/MIN; eGFR 80 ML/MIN
[2024-02-28 23:42] LABS: ETHANOL 424 MG/DL (<10)
[2024-02-29] MEDS ORDERED: CLIN-197 PO (02:29)
[2024-02-29] MEDS: ketorolac trometh. 30mg/ml inj. IV ONE (02:36)
[2024-02-29] MEDS: clindamycin 600mg/D5W 50ml 50 ML IV SCH (02:36)
[2024-02-29] MEDS: ondansetron/PF 4mg/2ml inj IV ONE (02:36)
[2024-02-29] MEDS: diphenhydrAMINE 50 mg/ml inj IV ONE (03:11)
[2024-02-29] MEDS: famotidine 20mg tablet PO ONE (03:11)
[2024-02-29] MEDS: pantoprazole 40 MG vial IV SCH (03:15)
[2024-02-29] MEDS: epiNEPHrine 1 mg/ml inj SQ ONE (05:17)
[2024-02-29 05:41] LABS: BILIRUBIN,URINE NEGATIVE (Neg); CLARITY,URINE CLOUDY (Clear); COLOR,URINE YELLOW (Yellow); GLUCOSE, URINE NEGATIVE (Neg); KETONES,URINE NEGATIVE (Neg); LEUKOCYTE ESTERASE ,URINE MODERATE (Neg); NITRITES, URINE POSITIVE (Neg); OCCULT BLOOD,URINE MODERATE (Neg); PROTEIN,URINE NEGATIVE (Neg); UROBILINOGEN,URINE 0.2 E.U/dL (0.2-1.0)
[2024-02-29 05:48] LABS: UA COLLECTION TYPE URINAL
[2024-02-29 06:01] LABS: SQUAMOUS EPITHELIAL CELL,UR FEW /LPF (FEW)
[2024-02-29 06:03] LABS: WBC CLUMPS,URINE FEW /HPF (NEGATIVE)
[2024-02-29 06:05] LABS: BACTERIA,URINE 4+ /HPF (Neg)
[2024-02-29 06:06] LABS: WBC,URINE 50-100 /HPF (0-4)
[2024-02-29] MEDS: CefTRIAXone/D5W-Rocephin 1gm 50 ML IV ONE (07:01)
[2024-02-29] MEDS ORDERED: thiamine inj. 100 MG in normal saline 100ml IV soln 99 ML IV ONE (07:25)
[2024-02-29] MEDS: dexamethasone sod phosphate 10mg/ml inj IV STA (07:37)
[2024-02-29] MEDS: magnesium sulf-water 2g/50mL 50 ML IV ONE (07:38)
[2024-02-29] MEDS: thiamine 100mg/ml 2ml inj. IV ONE (07:38)
[2024-02-29] MEDS ORDERED: pantoprazole 40 MG vial IV SCH (08:00)
[2024-02-29] MEDS ORDERED: FAMO20TA8 PO (08:50)
[2024-02-29] MEDS ORDERED: PRED10TA23 PO (08:50)
[2024-02-29 11:45] VITALS: BP 127/80; PULSE 96; RESP 16; O2SAT 94
[2024-02-29] MEDS ORDERED: CEFU500T66 PO (12:16)
[2024-03-07] MEDS ORDERED: CLIN300C71 PO (07:58)
== END 2024-02-29 12:17 | disposition home or self-care (01) ==
LOC: ER 22:45
DX: F10.129 Alcohol abuse with intoxication, unspecified (principal); K04.7 Periapical abscess without sinus; T78.2XXA Anaphylactic shock, unspecified, initial encounter; K85.20 Alcohol induced acute pancreatitis without necrosis or infection; I10 Essential (primary) hypertension; K21.9 Gastro-esophageal reflux disease without esophagitis; F41.9 Anxiety disorder, unspecified; F32.A Depression, unspecified; I25.10 Atherosclerotic heart disease of native coronary artery without angina pectoris; Z98.890 Other specified postprocedural states; Z85.42 Personal history of malignant neoplasm of other parts of uterus; Z59.00 Homelessness unspecified; Y90.8 Blood alcohol level of 240 mg/100 ml or more; Z88.0 Allergy status to penicillin; Z79.2 Long term (current) use of antibiotics; Z79.899 Other long term (current) drug therapy
CPT/HCPCS: 36415; 80048; 80320; 81001; 83690; 83735; 85025; 87077; 87088; 87186; 96361; 96365; 96367; 96372; 96375; 99285; J0171; J0696; J1100; J1200; J1885; J2405; J2470; J3411; J3490; J7030; A4615

== ENCOUNTER 2024-03-05 18:29 | Emergency (ER) | payer BC, MEDICAID ==
[~2024-03-05] VITALS: Ht 157.5 cm; Wt 61.4 kg
[~2024-03-05 18:29] MED LIST changes: +CEFU500T66 PO; +CLIN-197 PO; -DICY20TA17 PO; +FAMO20TA8 PO; -FE F PO; -POTA-208 PO; +PRED10TA23 PO
[2024-03-05] MEDS: ondansetron 4mg rapidly disintigrating tab PO ONE (19:40)
[2024-03-05] MEDS: pantoprazole 40mg Tablet.DR PO ONE (19:41)
[2024-03-05] MEDS: LIDOcaine 2% Viscous 15ml cup MM ONE (19:41)
[2024-03-05] MEDS: famotidine 20mg tablet PO ONE (19:41)
[2024-03-05] MEDS: mag hydrox/Alum hydrox/simeth 30ml oral suspension PO ONE (19:41)
[2024-03-05] MEDS ORDERED: OMEP40CA21 PO (20:47)
[2024-03-05] MEDS ORDERED: ONDA-245 PO (20:47)
[2024-03-05 21:48] VITALS: BP 126/78; PULSE 91; RESP 19; TEMP 98.2; O2SAT 100
[2024-03-07] MEDS ORDERED: CLIN300C71 PO (07:58)
== END 2024-03-05 21:51 | disposition home or self-care (01) ==
LOC: ER 18:30
DX: R11.2 Nausea with vomiting, unspecified (principal); R10.13 Epigastric pain; I10 Essential (primary) hypertension; K21.9 Gastro-esophageal reflux disease without esophagitis; F41.9 Anxiety disorder, unspecified; F32.A Depression, unspecified; I25.10 Atherosclerotic heart disease of native coronary artery without angina pectoris; F10.90 Alcohol use, unspecified, uncomplicated; Z85.89 Personal history of malignant neoplasm of other organs and systems; Z59.00 Homelessness unspecified; Z88.0 Allergy status to penicillin; Z79.2 Long term (current) use of antibiotics; Z79.899 Other long term (current) drug therapy; Z98.890 Other specified postprocedural states
CPT/HCPCS: 93005; 99285; A4615

== ENCOUNTER 2024-04-03 17:40 | Emergency (ER) | payer BC, MEDICAID ==
[~2024-04-03] VITALS: Ht 157.5 cm; Wt 62.9 kg
[~2024-04-03 17:40] MED LIST changes: -CLIN-197 PO; +ONDA-245 PO; -PRED10TA23 PO
[2024-04-03 18:14] VITALS: TEMP 97.8
[2024-04-03] MEDS: famotidine 20mg tablet PO ONE (19:06)
[2024-04-03] MEDS: ondansetron 4mg rapidly disintigrating tab PO ONE (19:06)
[2024-04-03] MEDS: pantoprazole 40mg Tablet.DR PO ONE (19:07)
[2024-04-03] MEDS: mag hydrox/Alum hydrox/simeth 30ml oral suspension PO ONE (19:08)
[2024-04-03] MEDS: LIDOcaine 2% Viscous 15ml cup MM ONE (19:08)
[2024-04-03 20:08] VITALS: BP 110/71; PULSE 81; RESP 18; O2SAT 99
== END 2024-04-03 20:13 | disposition home or self-care (01) ==
LOC: ER 17:43
DX: K21.9 Gastro-esophageal reflux disease without esophagitis (principal); F10.90 Alcohol use, unspecified, uncomplicated; I10 Essential (primary) hypertension; F41.9 Anxiety disorder, unspecified; Z88.0 Allergy status to penicillin; Z79.899 Other long term (current) drug therapy; Z98.890 Other specified postprocedural states; Z59.00 Homelessness unspecified; Z85.89 Personal history of malignant neoplasm of other organs and systems
CPT/HCPCS: 93005; 99284

== ENCOUNTER 2024-04-16 20:25 | Emergency (ER) | payer BC, MEDICAID ==
[~2024-04-16] VITALS: Ht 157.5 cm; Wt 59.1 kg
[~2024-04-16 20:25] MED LIST changes: -OMEP40CA21 PO
[2024-04-16 20:28] VITALS: BP 144/81; PULSE 86; RESP 19; TEMP 97.9; O2SAT 97
== END 2024-04-16 22:11 | disposition left against medical advice (07) ==
LOC: ER 20:26
DX: R11.2 Nausea with vomiting, unspecified (principal); F41.9 Anxiety disorder, unspecified; Z53.21 Procedure and treatment not carried out due to patient leaving prior to being seen by health care provider

== ENCOUNTER 2024-06-07 04:19 | Inpatient (IN) | payer BC, MEDICAID ==
[2024-06-07] VITALS (10 sets, daily range): BP systolic 115–129; BP diastolic 35–95; PULSE 69–80; RESP 14–20; O2SAT 95–100
[~2024-06-07] VITALS: Ht 160 cm; Wt 57.0 kg
[~2024-06-07 04:19] MED LIST changes: -CEFU500T66 PO; +LOSA25TA41 PO; +POTA-207 PO; +SPIR25TA PO; +SULF1TAB45 PO
[2024-06-07 05:21] LABS: BASOPHILS % (AUTO) 0.1 % (0-1); EOSINOPHILS % (AUTO) 0.2 % (0-6); HEMATOCRIT 32.4 % (35.0-45.0); HEMOGLOBIN 11.2 g/dl (12.0-16.0); LYMPHOCYTES # (AUTO) 1.4 X10'3 (1.1-4.8); LYMPHOCYTES % (AUTO) 6.6 % (21-51); MEAN CORPUSCULAR HEMOGLOBIN 28.1 PG (27.0-31.0); MEAN CORPUSCULAR HGB CONC 34.6 g/dL (33.0-36.5); MEAN CORPUSCULAR VOLUME 81.3 FL (78-98); MEAN PLATELET VOLUME 7.6 FL (7.4-10.4); MONOCYTES # (AUTO) 0.6 X10'3 (0-0.9); MONOCYTES % (AUTO) 2.9 % (2-12); NEUTROPHILS # (AUTO) 19.3 X10'3 (1.8-7.7); NEUTROPHILS % (AUTO) 90.2 % (42-75); PLATELET COUNT 332 X10'3 (140-440); RED BLOOD COUNT 3.99 X10'6 (4.20-5.60); RED CELL DISTRIBUTION WIDTH 20.2 % (11.5-14.5); WHITE BLOOD COUNT 21.4 X10'3 (4.5-11.0)
[2024-06-07] MEDS: normal saline 1000ML IV soln IVB ONE ×2 (05:28→05:45)
[2024-06-07 05:30] LABS: BILIRUBIN,URINE NEGATIVE (Neg); CLARITY,URINE CLOUDY (Clear); COLOR,URINE YELLOW (Yellow); GLUCOSE, URINE NEGATIVE (Neg); KETONES,URINE NEGATIVE (Neg); LEUKOCYTE ESTERASE ,URINE SMALL (Neg); NITRITES, URINE NEGATIVE (Neg); OCCULT BLOOD,URINE SMALL (Neg); PH,URINE 5.5 (4.8-8.0); PROTEIN,URINE NEGATIVE (Neg); UROBILINOGEN,URINE 0.2 E.U/dL (0.2-1.0)
[2024-06-07 05:30] LABS: ALANINE AMINOTRANSFERASE 167 U/L (12-78); ALBUMIN 3.4 G/DL (3.4-5.0); ALBUMIN/GLOBULIN RATIO 0.8 (1.1-1.5); ALKALINE PHOSPHATASE 93 IU/L (46-116); ASPARTATE AMINO TRANSFERASE 515 U/L (10-37); BILIRUBIN,DIRECT 0.2 MG/DL (0-0.3); BILIRUBIN,TOTAL 0.8 MG/DL (0.1-1.0); BLOOD UREA NITROGEN 73 MG/DL (7-18); BUN/CREATININE RATIO 41.7 (10.0-20.0); CHLORIDE 68 MMOL/L (99-107); CREATININE 1.75 MG/DL (0.40-0.90); ETHANOL < 10 MG/DL (<10); GLUCOSE 99 MG/DL (70-104); LIPASE 61 U/L (16-77); MAGNESIUM 1.6 MG/DL (1.5-2.4); TOTAL PROTEIN 7.9 G/DL (6.4-8.2); eCRCL 28 ML/MIN; eGFR 30 ML/MIN
[2024-06-07 05:35] LABS: ANION GAP -1 (8-16)
[2024-06-07 05:37] LABS: TOTAL CARBON DIOXIDE 48.8 MMOL/L (24-32)
[2024-06-07 05:38] LABS: CALCIUM 16.8 MG/DL (8.5-10.1)
[2024-06-07 05:39] LABS: SODIUM 116 MMOL/L (135-145)
[2024-06-07] MEDS: magnesium sulf-water 2g/50mL 50 ML IV ONE (05:52)
[2024-06-07] MEDS: potassium Cl 40MEQ/1/2NS 520ml 520 ML IV ONE (06:01)
[2024-06-07 06:02] LABS: UA COLLECTION TYPE STRAIGHT CATH; URINE AMPHETAMINE SCREEN NEGATIVE (Neg); URINE BARBITUATE SCREEN NEGATIVE (Neg); URINE BENZODIAZEPINES SCREEN NEGATIVE (Neg); URINE CANNABINOID SCREEN NEGATIVE (Neg); URINE COCAINE SCREEN NEGATIVE (Neg); URINE METHADONE SCREEN NEGATIVE (Neg); URINE OPIATE SCREEN NEGATIVE (Neg); URINE PHENCYCLIDINE SCREEN NEGATIVE (Neg)
[2024-06-07 06:03] LABS: CELLULAR CAST 0-4 /LPF (NEGATIVE); FINE GRANULAR CAST 0-3 /LPF (NEGATIVE)
[2024-06-07 06:04] LABS: SQUAMOUS EPITHELIAL CELL,UR MODERATE /LPF (FEW)
[2024-06-07 06:10] LABS: BACTERIA,URINE 4+ /HPF (Neg); WBC CLUMPS,URINE FEW /HPF (NEGATIVE); WBC,URINE 30-50 /HPF (0-4)
[2024-06-07 06:27] LABS: PHOSPHORUS 2.2 MG/DL (2.3-4.5)
[2024-06-07] MEDS ORDERED: acetaminophen 325mg tablet PO PRN (06:40)
[2024-06-07] MEDS ORDERED: dextrose 50%-water 50ml dispensing syringe IV PRN (06:40)
[2024-06-07] MEDS ORDERED: CLIN300C71 PO (07:09)
[2024-06-07] MEDS ORDERED: OMEP40CA21 PO (07:09)
[2024-06-07] MEDS ORDERED: DULO30CA52 PO (07:09)
[2024-06-07] MEDS ORDERED: MIRT-87 PO (07:09)
[2024-06-07] MEDS ORDERED: LISI20TA28 PO (07:09)
[2024-06-07] MEDS: LORazepam 2 mg/ml vial IV PRN (07:13)
[2024-06-07] MEDS: CefTRIAXone 2gm/D5W 50ml BAG 50 ML IV ONE (07:14)
[2024-06-07 07:20] LABS: ANISOCYTOSIS 3+; PLATELET ESTIMATE NORMAL; POLYCHROMASIA FEW
[2024-06-07 07:21] LABS: ELLIPTOCYTES FEW; STOMATOCYTES 1+; TEAR DROP CELLS FEW
[2024-06-07] MEDS: folic acid 1mg/0.2ml inj IV SCH (08:00)
[2024-06-07] MEDS: heparin, porcine 5000 units/ml vial SQ SCH (08:05)
[2024-06-07] MEDS: MEROPENEM 1GM/NACL 50ML IVPB 50 ML IV SCH (08:05)
[2024-06-07] MEDS: thiamine 100mg/ml 2ml inj. IV SCH (08:33)
[2024-06-07] MEDS: calcitonin,salmon synthetic 200 units/ml inj SQ SCH (08:37)
[2024-06-07 09:03] LABS: ALANINE AMINOTRANSFERASE 131 U/L (12-78); ALBUMIN 2.7 G/DL (3.4-5.0); ALBUMIN/GLOBULIN RATIO 0.7 (1.1-1.5); ALKALINE PHOSPHATASE 71 IU/L (46-116); AMYLASE 54 U/L (25-115); ASPARTATE AMINO TRANSFERASE 383 U/L (10-37); BILIRUBIN,TOTAL 0.5 MG/DL (0.1-1.0); BLOOD UREA NITROGEN 69 MG/DL (7-18); BUN/CREATININE RATIO 40.4 (10.0-20.0); CHLORIDE 73 MMOL/L (99-107); CREATININE 1.71 MG/DL (0.40-0.90); GLUCOSE 107 MG/DL (70-104); THYROID STIMULATING HORMONE 0.73 ulU/ml (0.34-4.50); TOTAL PROTEIN 6.4 G/DL (6.4-8.2); eCRCL 29 ML/MIN; eGFR 30 ML/MIN
[2024-06-07 09:21] LABS: ANION GAP -2 (8-16)
[2024-06-07 09:23] LABS: SODIUM 119 MMOL/L (135-145)
[2024-06-07 09:24] LABS: CALCIUM 14.7 MG/DL (8.5-10.1); POTASSIUM 2.1 MMOL/L (3.5-5.1); TOTAL CARBON DIOXIDE 47.8 MMOL/L (24-32)
[2024-06-07] MEDS: POTASSIUM CHLORIDE 20 MEQ/15 ML oral solution PO STA ×2 (09:36→09:39)
[2024-06-07] MEDS: Potassium Cl inj 40 MEQ in sodium chloride 0.45% 500ml 500 ML IV ONE (10:40)
[2024-06-07] MEDS: POTASSIUM CHLORIDE 20 MEQ/15 ML oral solution PO SCH (12:00)
[2024-06-07 15:08] LABS: ALANINE AMINOTRANSFERASE 112 U/L (12-78); ALBUMIN 2.5 G/DL (3.4-5.0); ALBUMIN/GLOBULIN RATIO 0.7 (1.1-1.5); ALKALINE PHOSPHATASE 67 IU/L (46-116); ANION GAP -1 (8-16); ASPARTATE AMINO TRANSFERASE 282 U/L (10-37); BILIRUBIN,TOTAL 0.3 MG/DL (0.1-1.0); BLOOD UREA NITROGEN 61 MG/DL (7-18); BUN/CREATININE RATIO 38.6 (10.0-20.0); CHLORIDE 80 MMOL/L (99-107); CREATININE 1.58 MG/DL (0.40-0.90); GLUCOSE 97 MG/DL (70-104); POTASSIUM 3.3 MMOL/L (3.5-5.1); SODIUM 122 MMOL/L (135-145); eCRCL 31 ML/MIN; eGFR 33 ML/MIN
[2024-06-07 15:11] LABS: CALCIUM 13.1 MG/DL (8.5-10.1)
[2024-06-07] MEDS: NORMAL SALINE IV STA (16:17)
[2024-06-07] MEDS: PAMIDRONATE DISODIUM IV STA (16:17)
[2024-06-08] VITALS (22 sets, daily range): BP systolic 100–140; BP diastolic 59–94; PULSE 72–108; RESP 12–21; TEMP 98–98.3; O2SAT 16–100
[2024-06-08] MEDS: potassium Cl 40MEQ/1/2NS 520ml 520 ML IV PRN
[2024-06-08 01:44] LABS: ALANINE AMINOTRANSFERASE 110 U/L (12-78); ALBUMIN 2.5 G/DL (3.4-5.0); ALBUMIN/GLOBULIN RATIO 0.7 (1.1-1.5); ALKALINE PHOSPHATASE 66 IU/L (46-116); ANION GAP 2 (8-16); ASPARTATE AMINO TRANSFERASE 220 U/L (10-37); BILIRUBIN,TOTAL 0.2 MG/DL (0.1-1.0); BLOOD UREA NITROGEN 49 MG/DL (7-18); BUN/CREATININE RATIO 39.8 (10.0-20.0); CHLORIDE 90 MMOL/L (99-107); CREATININE 1.23 MG/DL (0.40-0.90); GLUCOSE 87 MG/DL (70-104); MAGNESIUM 1.8 MG/DL (1.5-2.4); SODIUM 131 MMOL/L (135-145); TOTAL CARBON DIOXIDE 39.4 MMOL/L (24-32); TOTAL PROTEIN 6.2 G/DL (6.4-8.2); eCRCL 40 ML/MIN; eGFR 45 ML/MIN
[2024-06-08 01:45] LABS: EOSINOPHILS # (AUTO) 0.1 X10'3 (0-0.9); HEMOGLOBIN 9.4 g/dl (12.0-16.0); MEAN PLATELET VOLUME 7.9 FL (7.4-10.4); RED CELL DISTRIBUTION WIDTH 20.4 % (11.5-14.5)
[2024-06-08 01:47] LABS: BASOPHILS % (AUTO) 0.3 % (0-1); EOSINOPHILS % (AUTO) 0.6 % (0-6); HEMATOCRIT 27.5 % (35.0-45.0); LYMPHOCYTES # (AUTO) 1.2 X10'3 (1.1-4.8); MEAN CORPUSCULAR HEMOGLOBIN 28.7 PG (27.0-31.0); MEAN CORPUSCULAR HGB CONC 34.2 g/dL (33.0-36.5); MEAN CORPUSCULAR VOLUME 84.1 FL (78-98); MONOCYTES % (AUTO) 6.9 % (2-12); NEUTROPHILS # (AUTO) 11.5 X10'3 (1.8-7.7); NEUTROPHILS % (AUTO) 83.2 % (42-75); PLATELET COUNT 278 X10'3 (140-440); RED BLOOD COUNT 3.27 X10'6 (4.20-5.60); WHITE BLOOD COUNT 13.8 X10'3 (4.5-11.0)
[2024-06-08 01:49] LABS: POTASSIUM 3.2 MMOL/L (3.5-5.1)
[2024-06-08 01:56] LABS: CALCIUM 12.2 MG/DL (8.5-10.1)
[2024-06-08 02:59] LABS: TOTAL CELLS COUNTED 100
[2024-06-08 03:00] LABS: ANISOCYTOSIS 2+; LYMPHOCYTES % (MANUAL) 7 % (21-51); MONOCYTES % (MANUAL) 7 % (2-12); NEUTROPHILS % (MANUAL) 86 % (42-75); PLATELET ESTIMATE NORMAL
[2024-06-08] MEDS: desmopressin 4 MCG/1 ML amp SQ ONE (09:25)
[2024-06-08 09:34] LABS: ALBUMIN 2.4 G/DL (3.4-5.0); ANION GAP 3 (8-16); BLOOD UREA NITROGEN 38 MG/DL (7-18); BUN/CREATININE RATIO 38.4 (10.0-20.0); CALCIUM 11.6 MG/DL (8.5-10.1); CHLORIDE 90 MMOL/L (99-107); CREATININE 0.99 MG/DL (0.40-0.90); GLUCOSE 87 MG/DL (70-104); POTASSIUM 3.1 MMOL/L (3.5-5.1); SODIUM 128 MMOL/L (135-145); TOTAL CARBON DIOXIDE 35.1 MMOL/L (24-32); eCRCL 50 ML/MIN; eGFR 57 ML/MIN
[2024-06-08 09:49] LABS: PHOSPHORUS 1.2 MG/DL (2.3-4.5)
[2024-06-08] MEDS ORDERED: sodium phosphate inj. 15 MMOL in dextrose 5%-water 250 ML IV PRN (10:50)
[2024-06-08] MEDS ORDERED: sodium phosphate inj. 30 MMOL in dextrose 5%-water 250 ML IV PRN (10:50)
[2024-06-08 10:59] LABS: ALBUMIN 2.7 G/DL (3.4-5.0); ANION GAP 6 (8-16); BLOOD UREA NITROGEN 39 MG/DL (7-18); BUN/CREATININE RATIO 38.6 (10.0-20.0); CHLORIDE 92 MMOL/L (99-107); CREATININE 1.01 MG/DL (0.40-0.90); GLUCOSE 88 MG/DL (70-104); SODIUM 136 MMOL/L (135-145); TOTAL CARBON DIOXIDE 37.6 MMOL/L (24-32); eCRCL 49 ML/MIN; eGFR 56 ML/MIN
[2024-06-08 11:05] LABS: CALCIUM 12.2 MG/DL (8.5-10.1)
[2024-06-08] MEDS ORDERED: potassium phosphate inj 30 MMOL in dextrose 5%-water 250 ML IV PRN (11:31)
[2024-06-08] MEDS ORDERED: potassium phosphate inj 15 MMOL in dextrose 5%-water 250 ML IV PRN (11:32)
[2024-06-08] MEDS ORDERED: potassium phosphate inj 15 MMOL in normal saline 250ml IV soln 250 ML IV PRN (11:46)
[2024-06-08] MEDS ORDERED: potassium Cl 20 mEq SR tablet CORPAK PRN ×2 (12:10)
[2024-06-08] MEDS ORDERED: POTASSIUM CHLORIDE 20 MEQ/15 ML oral solution CORPAK PRN ×2 (12:13)
[2024-06-08] MEDS: Neutra Phos packet PO PRN (12:25)
[2024-06-08] MEDS: potassium phosphate inj 30 MMOL in normal saline 500ml IV soln 500 ML IV PRN (16:45)
[2024-06-08] MEDS: K and/or MAG REPLACEMENT MC SCH (20:00)
[2024-06-08] MEDS: MEROPENEM 1GM/NACL 50ML IVPB 50 ML IV SCH (21:22)
[2024-06-08] MEDS: ondansetron/PF 4mg/2ml inj IV PRN (22:01)
[2024-06-09 03:45] LABS: BASOPHILS % (AUTO) 0.5 % (0-1); EOSINOPHILS % (AUTO) 0.3 % (0-6); HEMATOCRIT 25.4 % (35.0-45.0); HEMOGLOBIN 8.6 g/dl (12.0-16.0); LYMPHOCYTES # (AUTO) 0.5 X10'3 (1.1-4.8); LYMPHOCYTES % (AUTO) 11.8 % (21-51); MEAN CORPUSCULAR HEMOGLOBIN 28.8 PG (27.0-31.0); MEAN CORPUSCULAR HGB CONC 33.7 g/dL (33.0-36.5); MEAN CORPUSCULAR VOLUME 85.4 FL (78-98); MONOCYTES # (AUTO) 0.5 X10'3 (0-0.9); MONOCYTES % (AUTO) 12.1 % (2-12); NEUTROPHILS # (AUTO) 3.4 X10'3 (1.8-7.7); NEUTROPHILS % (AUTO) 75.3 % (42-75); PLATELET COUNT 255 X10'3 (140-440); RED BLOOD COUNT 2.98 X10'6 (4.20-5.60); RED CELL DISTRIBUTION WIDTH 21.2 % (11.5-14.5); WHITE BLOOD COUNT 4.5 X10'3 (4.5-11.0)
[2024-06-09 04:01] LABS: ALANINE AMINOTRANSFERASE 80 U/L (12-78); ALBUMIN 2.4 G/DL (3.4-5.0); ALBUMIN/GLOBULIN RATIO 0.7 (1.1-1.5); ALKALINE PHOSPHATASE 61 IU/L (46-116); ANION GAP 7 (8-16); ASPARTATE AMINO TRANSFERASE 97 U/L (10-37); BILIRUBIN,TOTAL 0.3 MG/DL (0.1-1.0); BLOOD UREA NITROGEN 26 MG/DL (7-18); CALCIUM 10.1 MG/DL (8.5-10.1); CHLORIDE 101 MMOL/L (99-107); CREATININE 1.13 MG/DL (0.40-0.90); GLUCOSE 90 MG/DL (70-104); MAGNESIUM 1.2 MG/DL (1.5-2.4); PHOSPHORUS 1.6 MG/DL (2.3-4.5); POTASSIUM 3.7 MMOL/L (3.5-5.1); SODIUM 142 MMOL/L (135-145); TOTAL CARBON DIOXIDE 33.7 MMOL/L (24-32); eCRCL 44 ML/MIN; eGFR 49 ML/MIN
[2024-06-09 04:07] LABS: TOTAL CELLS COUNTED 100
[2024-06-09] MEDS: acetaminophen 325mg tablet PO PRN (04:18)
[2024-06-09 06:00] VITALS: BP_SYST 107; BP_SYST 139; BP_DIAS 76; BP_DIAS 92; PULSE 87; PULSE 94; RESP 16; TEMP 97.7; TEMP 99.2; O2SAT 96
[2024-06-09] MEDS ORDERED: LORazepam 2 mg/ml vial IV PRN ×2 (06:40→10:55)
[2024-06-09] MEDS ORDERED: LORazepam 1 MG tablet PO PRN (06:40)
[2024-06-09] MEDS: pantoprazole 40 MG vial IV ONE (09:53)
[2024-06-09 10:00] VITALS: BP 107/76; PULSE 87; RESP 16; TEMP 97.7; O2SAT 96
[2024-06-09 15:31] LABS: A/G RATIO 0.8 (0.7-1.7); ALBUMIN 2.7 g/dL (2.9-4.4); ALPHA-1-GLOBULIN 0.4 g/dL (0.0-0.4); GAMMA GLOBULIN 0.8 g/dL (0.4-1.8); GLOBULIN, TOTAL 3.3 g/dL (2.2-3.9); M-SPIKE Not Observed g/dL (Not Observed)
[2024-06-09 18:00] VITALS: BP 139/84; PULSE 94; RESP 14; TEMP 98.4; O2SAT 97
[2024-06-09] MEDS: pantoprazole 40 MG vial IV SCH (19:36)
[2024-06-09] MEDS: magnesium sulf-water 2g/50mL 50 ML IV PRN (19:38)
[2024-06-09] MEDS: thiamine 100mg tablet PO SCH (19:42)
[2024-06-09] MEDS ORDERED: K and/or MAG REPLACEMENT MC SCH (20:00)
[2024-06-09] MEDS: magnesium sulf-water 4G/100mL 100 ML IV PRN (21:41)
[2024-06-09] MEDS: LORazepam 1 MG tablet PO PRN (21:56)
[2024-06-09 22:18] VITALS: BP 121/86; PULSE 94; RESP 15; TEMP 98.6; O2SAT 97
[2024-06-10] VITALS (9 sets, daily range): BP systolic 103–118; BP diastolic 63–79; PULSE 81–92; RESP 13–18; TEMP 96.6–98.2; O2SAT 96–98
[2024-06-10 06:12] LABS: BASOPHILS # (AUTO) 0.1 X10'3 (0-0.2); BASOPHILS % (AUTO) 0.8 % (0-1); EOSINOPHILS # (AUTO) 0.3 X10'3 (0-0.9); EOSINOPHILS % (AUTO) 3.6 % (0-6); HEMATOCRIT 26.2 % (35.0-45.0); HEMOGLOBIN 8.7 g/dl (12.0-16.0); LYMPHOCYTES # (AUTO) 1.8 X10'3 (1.1-4.8); LYMPHOCYTES % (AUTO) 24.3 % (21-51); MEAN CORPUSCULAR HEMOGLOBIN 28.6 PG (27.0-31.0); MEAN CORPUSCULAR HGB CONC 33.2 g/dL (33.0-36.5); MEAN CORPUSCULAR VOLUME 86.3 FL (78-98); MEAN PLATELET VOLUME 7.1 FL (7.4-10.4); MONOCYTES # (AUTO) 1.1 X10'3 (0-0.9); MONOCYTES % (AUTO) 14.5 % (2-12); NEUTROPHILS # (AUTO) 4.2 X10'3 (1.8-7.7); NEUTROPHILS % (AUTO) 56.8 % (42-75); PLATELET COUNT 284 X10'3 (140-440); RED BLOOD COUNT 3.04 X10'6 (4.20-5.60); RED CELL DISTRIBUTION WIDTH 21.8 % (11.5-14.5); WHITE BLOOD COUNT 7.5 X10'3 (4.5-11.0)
[2024-06-10 06:19] LABS: INR 0.9 INR; PROTHROMBIN TIME 9.9 SECONDS (9.0-12.0)
[2024-06-10 06:36] LABS: ALANINE AMINOTRANSFERASE 72 U/L (12-78); ALBUMIN 2.4 G/DL (3.4-5.0); ALBUMIN/GLOBULIN RATIO 0.7 (1.1-1.5); ALKALINE PHOSPHATASE 54 IU/L (46-116); ANION GAP 8 (8-16); ASPARTATE AMINO TRANSFERASE 63 U/L (10-37); BILIRUBIN,TOTAL 0.2 MG/DL (0.1-1.0); BLOOD UREA NITROGEN 23 MG/DL (7-18); BUN/CREATININE RATIO 18.3 (10.0-20.0); CALCIUM 9.6 MG/DL (8.5-10.1); CHLORIDE 106 MMOL/L (99-107); CREATININE 1.26 MG/DL (0.40-0.90); GLUCOSE 97 MG/DL (70-104); LIPASE 121 U/L (16-77); POTASSIUM 4.5 MMOL/L (3.5-5.1); SODIUM 140 MMOL/L (135-145); TOTAL CARBON DIOXIDE 25.9 MMOL/L (24-32); eCRCL 39 ML/MIN; eGFR 43 ML/MIN
[2024-06-10 08:56] LABS: ANISOCYTOSIS 3+; PLATELET ESTIMATE NORMAL; TOTAL CELLS COUNTED 100
[2024-06-10 08:57] LABS: TEAR DROP CELLS FEW
[2024-06-10 08:58] LABS: POLYCHROMASIA FEW
[2024-06-10] MEDS: multivitamins, therapeutics tablet PO SCH (08:58)
[2024-06-10] MEDS: Neutra Phos packet PO SCH (11:32)
[2024-06-10] MEDS ORDERED: LORazepam 1 MG tablet PO PRN (11:40)
[2024-06-10] MEDS: LORazepam 2 mg/ml vial IV PRN (15:11)
[2024-06-10] MEDS: pantoprazole 40mg Tablet.DR PO SCH (20:52)
[2024-06-11] MEDS ORDERED: LORazepam 2 mg/ml vial IV PRN (06:40)
[2024-06-11] MEDS ORDERED: LORazepam 1 MG tablet PO PRN (06:40)
[2024-06-11 06:48] LABS: PROTHROMBIN TIME 10.2 SECONDS (9.0-12.0)
[2024-06-11 06:51] LABS: BASOPHILS % (AUTO) 0.4 % (0-1); EOSINOPHILS # (AUTO) 0.3 X10'3 (0-0.9); HEMATOCRIT 24.6 % (35.0-45.0); HEMOGLOBIN 8.4 g/dl (12.0-16.0); LYMPHOCYTES # (AUTO) 1.9 X10'3 (1.1-4.8); LYMPHOCYTES % (AUTO) 21.3 % (21-51); MEAN CORPUSCULAR HEMOGLOBIN 29.2 PG (27.0-31.0); MEAN CORPUSCULAR HGB CONC 33.9 g/dL (33.0-36.5); MEAN CORPUSCULAR VOLUME 86.2 FL (78-98); MEAN PLATELET VOLUME 7.4 FL (7.4-10.4); MONOCYTES % (AUTO) 11.3 % (2-12); NEUTROPHILS # (AUTO) 5.8 X10'3 (1.8-7.7); PLATELET COUNT 358 X10'3 (140-440); RED BLOOD COUNT 2.86 X10'6 (4.20-5.60)
[2024-06-11 07:04] LABS: ALANINE AMINOTRANSFERASE 61 U/L (12-78); ALBUMIN 2.5 G/DL (3.4-5.0); ALBUMIN/GLOBULIN RATIO 0.7 (1.1-1.5); ALKALINE PHOSPHATASE 52 IU/L (46-116); ANION GAP 6 (8-16); ASPARTATE AMINO TRANSFERASE 41 U/L (10-37); BILIRUBIN,TOTAL 0.2 MG/DL (0.1-1.0); BLOOD UREA NITROGEN 30 MG/DL (7-18); BUN/CREATININE RATIO 25.2 (10.0-20.0); CALCIUM 8.3 MG/DL (8.5-10.1); CHLORIDE 104 MMOL/L (99-107); CREATININE 1.19 MG/DL (0.40-0.90); GLUCOSE 115 MG/DL (70-104); LIPASE 197 U/L (16-77); MAGNESIUM 1.5 MG/DL (1.5-2.4); PHOSPHORUS 1.4 MG/DL (2.3-4.5); POTASSIUM 4.3 MMOL/L (3.5-5.1); SODIUM 133 MMOL/L (135-145); TOTAL CARBON DIOXIDE 23.1 MMOL/L (24-32); eCRCL 42 ML/MIN; eGFR 46 ML/MIN
[2024-06-11] MEDS ORDERED: thiamine 100mg tablet PO SCH (08:00)
[2024-06-11] MEDS ORDERED: folic acid 1mg tablet PO SCH (08:00)
[2024-06-11 08:08] LABS: ANISOCYTOSIS 3+; PLATELET ESTIMATE NORMAL; TOTAL CELLS COUNTED 100
[2024-06-11 09:14] VITALS: RESP 20; O2SAT 100
[2024-06-11 09:22] VITALS: BP 123/80; PULSE 87; RESP 20; TEMP 98.9; O2SAT 100
[2024-06-11 09:39] LABS: ALBUMIN, UR 42.4 % (.); ALPHA-1-GLOBULIN,UR 6.9 % (.); ALPHA-2-GLOBULIN,UR 18.7 % (.); BETA GLOBULIN, UR 22.6 % (.); GAMMA GLOBULIN,UR 9.3 % (.)
[2024-06-11 11:17] VITALS: BP 117/81; PULSE 87; RESP 14; TEMP 99; O2SAT 98
[2024-06-11 14:36] VITALS: RESP 14
[2024-06-11 18:00] VITALS: BP 147/94; PULSE 81; RESP 15; TEMP 97.6; O2SAT 100
[2024-06-11 22:00] VITALS: BP 137/84; PULSE 113; RESP 14; TEMP 98.3; O2SAT 95
[2024-06-12 06:00] VITALS: BP 111/75; PULSE 86; RESP 13; TEMP 97.9; O2SAT 97
[2024-06-12] MEDS: magnesium hydroxide 30ml (MOM) UD suspension PO PRN (06:49)
[2024-06-12 06:57] LABS: BASOPHILS % (AUTO) 0.6 % (0-1); EOSINOPHILS # (AUTO) 0.1 X10'3 (0-0.9); EOSINOPHILS % (AUTO) 1.9 % (0-6); HEMATOCRIT 24.8 % (35.0-45.0); HEMOGLOBIN 8.1 g/dl (12.0-16.0); LYMPHOCYTES # (AUTO) 1.4 X10'3 (1.1-4.8); LYMPHOCYTES % (AUTO) 18.6 % (21-51); MEAN CORPUSCULAR HGB CONC 32.8 g/dL (33.0-36.5); MEAN CORPUSCULAR VOLUME 85.4 FL (78-98); MEAN PLATELET VOLUME 7.1 FL (7.4-10.4); MONOCYTES # (AUTO) 0.7 X10'3 (0-0.9); MONOCYTES % (AUTO) 9.1 % (2-12); NEUTROPHILS # (AUTO) 5.3 X10'3 (1.8-7.7); NEUTROPHILS % (AUTO) 69.8 % (42-75); PLATELET COUNT 356 X10'3 (140-440); RED CELL DISTRIBUTION WIDTH 21.5 % (11.5-14.5); WHITE BLOOD COUNT 7.5 X10'3 (4.5-11.0)
[2024-06-12 07:02] LABS: PROTHROMBIN TIME 10.4 SECONDS (9.0-12.0)
[2024-06-12 07:42] LABS: ALANINE AMINOTRANSFERASE 48 U/L (12-78); ALBUMIN 2.6 G/DL (3.4-5.0); ALBUMIN/GLOBULIN RATIO 0.7 (1.1-1.5); ALKALINE PHOSPHATASE 51 IU/L (46-116); ANION GAP 11 (8-16); ASPARTATE AMINO TRANSFERASE 30 U/L (10-37); BILIRUBIN,TOTAL 0.2 MG/DL (0.1-1.0); BLOOD UREA NITROGEN 24 MG/DL (7-18); BUN/CREATININE RATIO 25.8 (10.0-20.0); CALCIUM 7.5 MG/DL (8.5-10.1); CHLORIDE 104 MMOL/L (99-107); CREATININE 0.93 MG/DL (0.40-0.90); GLUCOSE 99 MG/DL (70-104); LIPASE 290 U/L (16-77); MAGNESIUM 1.2 MG/DL (1.5-2.4); PHOSPHORUS 2.4 MG/DL (2.3-4.5); SODIUM 137 MMOL/L (135-145); TOTAL CARBON DIOXIDE 21.7 MMOL/L (24-32); TOTAL PROTEIN 6.1 G/DL (6.4-8.2); eCRCL 53 ML/MIN; eGFR 61 ML/MIN
[2024-06-12 08:00] VITALS: RESP 16; O2SAT 97
[2024-06-12 10:00] VITALS: BP 125/89; PULSE 89; RESP 20; TEMP 98.3; O2SAT 93
[2024-06-12 10:21] LABS: TOTAL CELLS COUNTED 100
[2024-06-12 10:22] LABS: ANISOCYTOSIS 3+; MICROCYTOSIS 1+; PLATELET ESTIMATE NORMAL
[2024-06-12] MEDS ORDERED: FOLI1TAB27 PO (11:37)
[2024-06-12] MEDS ORDERED: thiamine tablet PO (11:37)
[2024-06-12 18:00] VITALS: BP 120/82; PULSE 94; RESP 15; TEMP 97.9; O2SAT 99
[2024-06-12 20:00] VITALS: RESP 18; O2SAT 99
[2024-06-12 22:00] VITALS: BP 114/74; PULSE 83; RESP 18; TEMP 98.4; O2SAT 99
[2024-06-13 06:00] VITALS: BP 101/71; PULSE 94; RESP 16; TEMP 98.6; O2SAT 99
[2024-06-13 06:34] LABS: BASOPHILS % (AUTO) 0.7 % (0-1); EOSINOPHILS # (AUTO) 0.1 X10'3 (0-0.9); EOSINOPHILS % (AUTO) 1.3 % (0-6); LYMPHOCYTES % (AUTO) 18.6 % (21-51); MEAN CORPUSCULAR HEMOGLOBIN 28.6 PG (27.0-31.0); MEAN CORPUSCULAR HGB CONC 33.4 g/dL (33.0-36.5); MEAN CORPUSCULAR VOLUME 85.5 FL (78-98); MONOCYTES # (AUTO) 0.6 X10'3 (0-0.9); NEUTROPHILS # (AUTO) 3.5 X10'3 (1.8-7.7); NEUTROPHILS % (AUTO) 67.4 % (42-75); PLATELET COUNT 410 X10'3 (140-440); RED CELL DISTRIBUTION WIDTH 22.2 % (11.5-14.5); WHITE BLOOD COUNT 5.2 X10'3 (4.5-11.0)
[2024-06-13 06:42] LABS: PROTHROMBIN TIME 10.4 SECONDS (9.0-12.0)
[2024-06-13 06:55] LABS: ALANINE AMINOTRANSFERASE 41 U/L (12-78); ALBUMIN 2.5 G/DL (3.4-5.0); ALBUMIN/GLOBULIN RATIO 0.7 (1.1-1.5); ALKALINE PHOSPHATASE 50 IU/L (46-116); ANION GAP 10 (8-16); ASPARTATE AMINO TRANSFERASE 22 U/L (10-37); BILIRUBIN,TOTAL 0.3 MG/DL (0.1-1.0); BLOOD UREA NITROGEN 19 MG/DL (7-18); CALCIUM 7.3 MG/DL (8.5-10.1); CHLORIDE 108 MMOL/L (99-107); CREATININE 0.73 MG/DL (0.40-0.90); GLUCOSE 106 MG/DL (70-104); LIPASE 221 U/L (16-77); MAGNESIUM 1.5 MG/DL (1.5-2.4); PHOSPHORUS 2.4 MG/DL (2.3-4.5); POTASSIUM 4.2 MMOL/L (3.5-5.1); SODIUM 140 MMOL/L (135-145); TOTAL CARBON DIOXIDE 21.6 MMOL/L (24-32); TOTAL PROTEIN 6.1 G/DL (6.4-8.2); eCRCL 68 ML/MIN; eGFR 81 ML/MIN
[2024-06-13 07:40] VITALS: RESP 18
[2024-06-13 07:42] LABS: ANISOCYTOSIS 3+; PLATELET ESTIMATE NORMAL; TOTAL CELLS COUNTED 100
[2024-06-13 10:00] VITALS: BP 109/72; PULSE 94; RESP 18; TEMP 97.6; O2SAT 94
[2024-06-14] MEDS ORDERED: folic acid 1mg tablet PO SCH (08:00)
== END 2024-06-13 14:55 | disposition home or self-care (01) | DRG 871 ==
LOC: ER 04:20 → ED HOLD 06:58 → CICU 2S 16:50 → ORTHO 4S 06-08 14:56
PROVIDERS: ADMIT Internal Medicine Critical Care Medicine; ATTEND Internal Medicine Critical Care Medicine
PROC: 05H933Z Insertion of Infusion Device into Right Brachial Vein, Percutaneous Approach (ICD-10-PCS; principal; 2024-06-08)
DX: A41.9 Sepsis, unspecified organism (principal); G93.41 Metabolic encephalopathy; N17.0 Acute kidney failure with tubular necrosis; E87.1 Hypo-osmolality and hyponatremia; N30.00 Acute cystitis without hematuria; Z59.00 Homelessness unspecified; Z16.24 Resistance to multiple antibiotics; E87.20 Acidosis, unspecified; R60.9 Edema, unspecified; E87.6 Hypokalemia; F41.9 Anxiety disorder, unspecified; F32.A Depression, unspecified; I25.10 Atherosclerotic heart disease of native coronary artery without angina pectoris; B96.1 Klebsiella pneumoniae [K. pneumoniae] as the cause of diseases classified elsewhere; D63.8 Anemia in other chronic diseases classified elsewhere; I10 Essential (primary) hypertension; R65.20 Severe sepsis without septic shock; K21.9 Gastro-esophageal reflux disease without esophagitis; E86.0 Dehydration; E78.00 Pure hypercholesterolemia, unspecified; F10.20 Alcohol dependence, uncomplicated; Z88.0 Allergy status to penicillin; Z90.49 Acquired absence of other specified parts of digestive tract; Z93.3 Colostomy status; Z85.41 Personal history of malignant neoplasm of cervix uteri; C80.1 Malignant (primary) neoplasm, unspecified; E21.0 Primary hyperparathyroidism
CPT/HCPCS: 36410; 36415; 70450; 71045; 71250; 74176; 76937; 80048; 80053; 80076; 80305; 80320; 81001; 82140; 82150; 82306; 82330; 82570; 82948; 83605; 83690; 83735; 83930; 83935; 83970; 84100; 84133; 84145; 84155; 84156; 84165; 84166; 84300; 84443; 84484; 85007; 85008; 85025; 85610; 87040; 87077; 87081; 87088; 87186; 93005; 97110; 97116; 97162; 97530; 99291; A4615; A4620; A6449; C1751; C1758; G0378; J0630; J0696; J1644; J2060; J2185; J2405; J2430; J2470; J2597; J3411; J3475; J3480; J3490; J7030; J7040

== ENCOUNTER 2024-08-02 18:09 | Inpatient (IN) | payer BC, MEDICAID ==
[~2024-08-02] VITALS: Ht 157.5 cm; Wt 63.0 kg
[~2024-08-02 18:09] MED LIST changes: +DULO30CA52 PO; -FAMO20TA8 PO; +FOLI1TAB27 PO; +LISI20TA28 PO; -LOSA25TA41 PO; +MIRT-87 PO; +OMEP40CA21 PO; -ONDA-245 PO; -PANT-47 PO; -POTA-207 PO; -SPIR25TA PO; -SULF1TAB45 PO; +thiamine tablet PO
[2024-08-02 19:29] LABS: HEMOGLOBIN 10.9 g/dl (12.0-16.0); MONOCYTES # (AUTO) 0.9 X10'3 (0-0.9); RED CELL DISTRIBUTION WIDTH 19.5 % (11.5-14.5)
[2024-08-02 19:31] LABS: BASOPHILS % (AUTO) 0.3 % (0-1); EOSINOPHILS % (AUTO) 0.1 % (0-6); HEMATOCRIT 32.3 % (35.0-45.0); LYMPHOCYTES # (AUTO) 1.1 X10'3 (1.1-4.8); LYMPHOCYTES % (AUTO) 10.2 % (21-51); MEAN CORPUSCULAR HEMOGLOBIN 29.4 PG (27.0-31.0); MEAN CORPUSCULAR HGB CONC 33.6 g/dL (33.0-36.5); MEAN CORPUSCULAR VOLUME 87.5 FL (78-98); MEAN PLATELET VOLUME 7.3 FL (7.4-10.4); MONOCYTES % (AUTO) 9.1 % (2-12); NEUTROPHILS # (AUTO) 8.3 X10'3 (1.8-7.7); NEUTROPHILS % (AUTO) 80.3 % (42-75); PLATELET COUNT 251 X10'3 (140-440); RED BLOOD COUNT 3.69 X10'6 (4.20-5.60); WHITE BLOOD COUNT 10.4 X10'3 (4.5-11.0)
[2024-08-02 20:17] LABS: ALANINE AMINOTRANSFERASE 39 U/L (12-78); ALBUMIN 2.8 G/DL (3.4-5.0); ALBUMIN/GLOBULIN RATIO 0.8 (1.1-1.5); ALKALINE PHOSPHATASE 84 IU/L (46-116); ANION GAP 10 (8-16); ASPARTATE AMINO TRANSFERASE 58 U/L (10-37); BILIRUBIN,TOTAL 0.4 MG/DL (0.1-1.0); BLOOD UREA NITROGEN 19 MG/DL (7-18); BUN/CREATININE RATIO 15.1 (10.0-20.0); CHLORIDE 70 MMOL/L (99-107); CREATININE 1.26 MG/DL (0.40-0.90); ETHANOL 68 MG/DL (<10); GLUCOSE 116 MG/DL (70-104); LIPASE 305 U/L (16-77); TOTAL PROTEIN 6.5 G/DL (6.4-8.2); eCRCL 38 ML/MIN; eGFR 43 ML/MIN
[2024-08-02 20:32] LABS: CALCIUM > 20.0 MG/DL (8.5-10.1)
[2024-08-02 20:33] LABS: POTASSIUM 2.7 MMOL/L (3.5-5.1); TOTAL CARBON DIOXIDE 40.1 MMOL/L (24-32)
[2024-08-02 20:34] LABS: SODIUM 120 MMOL/L (135-145)
[2024-08-02 20:39] LABS: ANISOCYTOSIS 2+; PLATELET ESTIMATE NORMAL
[2024-08-02] MEDS: normal saline 1000ml 1,000 ML IV STA ×2 (21:26→22:55)
[2024-08-02] MEDS ORDERED: iohexol 300mg/ml 100ml inj. ONE (21:29)
[2024-08-02] MEDS: magnesium sulf-water 2g/50mL 50 ML IV STA (22:54)
[2024-08-02] MEDS: POTASSIUM CHLORIDE 20 MEQ/15 ML oral solution PO STA (22:55)
[2024-08-02] MEDS: pantoprazole 40 MG vial IV STA (23:21)
[2024-08-02] MEDS: potassium 20mEq/D5LR 1,000 ML IV SCH (23:30)
[2024-08-02] MEDS: potassium 20mEq/D5LR 1000ml bag IV STA (23:34)
[2024-08-03] VITALS (15 sets, daily range): BP systolic 80–135; BP diastolic 30–85; PULSE 72–118; RESP 15–33; TEMP 98.1–99.2; O2SAT 89–100
[2024-08-03] MEDS ORDERED: potassium Cl 20 mEq SR tablet PO PRN ×2 (00:30)
[2024-08-03] MEDS ORDERED: magnesium hydroxide 30ml (MOM) UD suspension PO PRN (00:30)
[2024-08-03] MEDS ORDERED: mag hydrox/Alum hydrox/simeth 30ml oral suspension PO PRN (00:30)
[2024-08-03] MEDS ORDERED: magnesium Cl slow-release 64mg tablet PO PRN (00:30)
[2024-08-03] MEDS ORDERED: normal saline 1000ml 1,000 ML IV SCH (00:30)
[2024-08-03 01:15] LABS: MAGNESIUM 1.4 MG/DL (1.5-2.4)
[2024-08-03] MEDS ORDERED: cloNIDine 0.1 mg tablet PO PRN (01:25)
[2024-08-03] MEDS: zoledronic acid/mannitol-water 100 ML IV ONE (01:25)
[2024-08-03] MEDS ORDERED: haloperidol 5mg tablet PO PRN (01:25)
[2024-08-03] MEDS ORDERED: haloperidol lactate 5mg/ml inj IM PRN (01:25)
[2024-08-03] MEDS ORDERED: sodium chloride 3% IV.soln 100 ML IV PRN (02:20)
[2024-08-03] MEDS: potassium Cl 20mEq in NS 1,000 ML IV SCH (03:29)
[2024-08-03 03:45] LABS: MAGNESIUM 2.3 MG/DL (1.5-2.4); PHOSPHORUS 1.8 MG/DL (2.3-4.5); POTASSIUM 3.3 MMOL/L (3.5-5.1)
[2024-08-03] MEDS: heparin, porcine 5000 units/ml vial SQ SCH (08:00)
[2024-08-03] MEDS: docusate sod 100mg capsule PO SCH (08:00)
[2024-08-03] MEDS: K and/or MAG REPLACEMENT MC SCH (08:00)
[2024-08-03] MEDS: LORazepam 2 mg/ml vial IV PRN (09:39)
[2024-08-03] MEDS: thiamine 100mg/ml 2ml inj. IV SCH (09:39)
[2024-08-03] MEDS: magnesium sulf-water 2g/50mL 50 ML IV PRN (09:40)
[2024-08-03] MEDS: calcitonin,salmon synthetic 200 units/ml inj SQ SCH (10:18)
[2024-08-03] MEDS: folic acid 1mg/0.2ml inj IV SCH (10:18)
[2024-08-03 11:24] LABS: OCCULT BLOOD STOOL POSITIVE (Neg)
[2024-08-03 11:47] LABS: BASOPHILS % (AUTO) 0.2 % (0-1); EOSINOPHILS % (AUTO) 0 % (0-6); HEMATOCRIT 22.8 % (35.0-45.0); HEMOGLOBIN 7.4 g/dl (12.0-16.0); LYMPHOCYTES # (AUTO) 0.7 X10'3 (1.1-4.8); LYMPHOCYTES % (AUTO) 5.8 % (21-51); MEAN CORPUSCULAR HGB CONC 32.2 g/dL (33.0-36.5); MEAN PLATELET VOLUME 8.1 FL (7.4-10.4); MONOCYTES # (AUTO) 0.7 X10'3 (0-0.9); MONOCYTES % (AUTO) 5.4 % (2-12); NEUTROPHILS # (AUTO) 11.5 X10'3 (1.8-7.7); NEUTROPHILS % (AUTO) 88.6 % (42-75); PLATELET COUNT 233 X10'3 (140-440); RED BLOOD COUNT 2.54 X10'6 (4.20-5.60); RED CELL DISTRIBUTION WIDTH 19.8 % (11.5-14.5)
[2024-08-03 12:16] LABS: ANISOCYTOSIS 2+; PLATELET ESTIMATE NORMAL; SCHISTOCYTES FEW
[2024-08-03 12:55] LABS: ALANINE AMINOTRANSFERASE 39 U/L (12-78); ALBUMIN 2.3 G/DL (3.4-5.0); ALBUMIN/GLOBULIN RATIO 0.8 (1.1-1.5); ALKALINE PHOSPHATASE 67 IU/L (46-116); ANION GAP 5 (8-16); ASPARTATE AMINO TRANSFERASE 67 U/L (10-37); BILIRUBIN,TOTAL 0.5 MG/DL (0.1-1.0); BLOOD UREA NITROGEN 58 MG/DL (7-18); BUN/CREATININE RATIO 39.2 (10.0-20.0); CHLORIDE 85 MMOL/L (99-107); CREATININE 1.48 MG/DL (0.40-0.90); GLUCOSE 99 MG/DL (70-104); SODIUM 127 MMOL/L (135-145); TOTAL CARBON DIOXIDE 37.3 MMOL/L (24-32); TOTAL PROTEIN 5.3 G/DL (6.4-8.2); eCRCL 32 ML/MIN; eGFR 36 ML/MIN
[2024-08-03 13:05] LABS: CALCIUM 15.4 MG/DL (8.5-10.1)
[2024-08-03 13:06] LABS: OSMOLALITY UA 544 MOSM/K (50-1400)
[2024-08-03 13:10] LABS: BILIRUBIN,URINE NEGATIVE (Neg); CLARITY,URINE CLOUDY (Clear); COLOR,URINE YELLOW (Yellow); GLUCOSE, URINE NEGATIVE (Neg); KETONES,URINE NEGATIVE (Neg); LEUKOCYTE ESTERASE ,URINE NEGATIVE (Neg); NITRITES, URINE NEGATIVE (Neg); OCCULT BLOOD,URINE SMALL (Neg); PH,URINE 7.5 (4.8-8.0); PROTEIN,URINE 100 mg/dl (Neg); UROBILINOGEN,URINE 0.2 E.U/dL (0.2-1.0)
[2024-08-03 13:19] LABS: UA COLLECTION TYPE OTHER
[2024-08-03 13:21] LABS: BACTERIA,URINE 4+ /HPF (Neg); RBC,URINE 0-2 /HPF (0-2)
[2024-08-03 13:22] LABS: MUCUS STRANDS NONE SEEN /LPF (Neg); SQUAMOUS EPITHELIAL CELL,UR MODERATE /LPF (FEW); STARCH,URINE MANY /HPF (NEGATIVE)
[2024-08-03 13:24] LABS: TRIPLE PHOSPHATE CRYST 3+ /HPF (NEGATIVE)
[2024-08-03 13:38] LABS: SODIUM,URINE RANDOM < 15 MEQ/L; URINE AMPHETAMINE SCREEN NEGATIVE (Neg); URINE BARBITUATE SCREEN NEGATIVE (Neg); URINE BENZODIAZEPINES SCREEN NEGATIVE (Neg); URINE CANNABINOID SCREEN NEGATIVE (Neg); URINE COCAINE SCREEN NEGATIVE (Neg); URINE METHADONE SCREEN NEGATIVE (Neg); URINE OPIATE SCREEN NEGATIVE (Neg); URINE PHENCYCLIDINE SCREEN NEGATIVE (Neg)
[2024-08-03 14:38] LABS: UA EOSINOPHILS NO EOS /HPF
[2024-08-03] MEDS ORDERED: pantoprazole 40mg IV 80 MG in normal saline 100ml IV soln 100 ML IV ONE (17:40)
[2024-08-03] MEDS ORDERED: octreotide inj. 1,250 MCG in normal saline 250ml IV soln 243.75 ML IV SCH (18:00)
[2024-08-03] MEDS ORDERED: normal saline 500ml IV soln 500 ML IV ONE ×4 (18:20)
[2024-08-03] MEDS: normal saline 1000ml 1,000 ML IV ONE (19:15)
[2024-08-03 19:42] LABS: MEAN CORPUSCULAR HEMOGLOBIN 29.9 PG (27.0-31.0); MEAN CORPUSCULAR HGB CONC 33.6 g/dL (33.0-36.5); PLATELET COUNT 186 X10'3 (140-440); RED CELL DISTRIBUTION WIDTH 20.1 % (11.5-14.5); WHITE BLOOD COUNT 13.4 X10'3 (4.5-11.0)
[2024-08-03 20:06] LABS: HEMOGLOBIN 6.3 g/dl (12.0-16.0)
[2024-08-03 20:07] LABS: HEMATOCRIT 18.7 % (35.0-45.0)
[2024-08-03] MEDS: pantoprazole 40 MG vial IV ONE (20:40)
[2024-08-03] MEDS: octreotide inj. 500 MCG in normal saline 100ml IV soln 97.5 ML IV SCH (21:34)
[2024-08-03] MEDS: normal saline 1000ml 1,000 ML IV SCH (23:25)
[2024-08-04] VITALS (26 sets, daily range): BP systolic 91–148; BP diastolic 61–95; PULSE 79–111; RESP 18–41; TEMP 97.5–100.4; O2SAT 90–100
[2024-08-04 02:25] LABS: BASOPHILS % (AUTO) 0.1 % (0-1); EOSINOPHILS % (AUTO) 0 % (0-6); HEMATOCRIT 32.1 % (35.0-45.0); HEMOGLOBIN 11.1 g/dl (12.0-16.0); LYMPHOCYTES # (AUTO) 0.3 X10'3 (1.1-4.8); LYMPHOCYTES % (AUTO) 3.2 % (21-51); MEAN CORPUSCULAR HEMOGLOBIN 30.4 PG (27.0-31.0); MEAN CORPUSCULAR HGB CONC 34.6 g/dL (33.0-36.5); MEAN PLATELET VOLUME 7.4 FL (7.4-10.4); MONOCYTES # (AUTO) 0.3 X10'3 (0-0.9); NEUTROPHILS # (AUTO) 9.7 X10'3 (1.8-7.7); NEUTROPHILS % (AUTO) 93.7 % (42-75); PLATELET COUNT 161 X10'3 (140-440); RED BLOOD COUNT 3.64 X10'6 (4.20-5.60); RED CELL DISTRIBUTION WIDTH 16.3 % (11.5-14.5); WHITE BLOOD COUNT 10.3 X10'3 (4.5-11.0)
[2024-08-04 02:40] LABS: ALANINE AMINOTRANSFERASE 32 U/L (12-78); ALBUMIN 1.8 G/DL (3.4-5.0); ALBUMIN/GLOBULIN RATIO 0.6 (1.1-1.5); ALKALINE PHOSPHATASE 57 IU/L (46-116); ANION GAP 4 (8-16); ASPARTATE AMINO TRANSFERASE 46 U/L (10-37); BILIRUBIN,TOTAL 1.3 MG/DL (0.1-1.0); BLOOD UREA NITROGEN 53 MG/DL (7-18); BUN/CREATININE RATIO 45.7 (10.0-20.0); CHLORIDE 97 MMOL/L (99-107); CREATININE 1.16 MG/DL (0.40-0.90); GLUCOSE 113 MG/DL (70-104); MAGNESIUM 2.1 MG/DL (1.5-2.4); POTASSIUM 3.3 MMOL/L (3.5-5.1); SODIUM 134 MMOL/L (135-145); TOTAL CARBON DIOXIDE 33.5 MMOL/L (24-32); TOTAL PROTEIN 4.7 G/DL (6.4-8.2); eCRCL 41 ML/MIN; eGFR 48 ML/MIN
[2024-08-04 03:00] LABS: HEMOGLOBIN A1C 5.7 % (4.5-6.2)
[2024-08-04] MEDS ORDERED: magnesium sulf-water 2g/50mL 50 ML IV PRN (03:10)
[2024-08-04] MEDS ORDERED: potassium Cl 20 mEq SR tablet PO PRN ×2 (03:10)
[2024-08-04] MEDS: acetaminophen 1,000mg/100ml IV 100 ML IV ONE (03:35)
[2024-08-04 03:54] LABS: PHOSPHORUS 0.8 MG/DL (2.3-4.5)
[2024-08-04] MEDS: potassium Cl 40MEQ/270ML bag 270 ML IV PRN (04:01)
[2024-08-04] MEDS ORDERED: sodium phosphate inj. 15 MMOL in dextrose 5%-water 250 ML IV PRN (04:10)
[2024-08-04] MEDS: normal saline 500ml IV soln 500 ML IV ONE ×4 (06:30→08:39)
[2024-08-04] MEDS: sodium phosphate inj. 30 MMOL in dextrose 5%-water 250 ML IV PRN (06:48)
[2024-08-04] MEDS: sodium phosphate inj. 30 MMOL in dextrose 5%-water 250 ML IV ONE (06:52)
[2024-08-04] MEDS: pantoprazole 40MG/NS 100ML BAG 100 ML IV SCH (07:18)
[2024-08-04 08:19] LABS: HEMATOCRIT 27.6 % (35.0-45.0); HEMOGLOBIN 9.5 g/dl (12.0-16.0); MEAN CORPUSCULAR HEMOGLOBIN 30.5 PG (27.0-31.0); MEAN CORPUSCULAR HGB CONC 34.6 g/dL (33.0-36.5); MEAN CORPUSCULAR VOLUME 88.4 FL (78-98); MEAN PLATELET VOLUME 7.4 FL (7.4-10.4); PLATELET COUNT 144 X10'3 (140-440); RED BLOOD COUNT 3.12 X10'6 (4.20-5.60); WHITE BLOOD COUNT 8.3 X10'3 (4.5-11.0)
[2024-08-04 08:33] LABS: ALANINE AMINOTRANSFERASE 32 U/L (12-78); ALBUMIN 1.3 G/DL (3.4-5.0); ALBUMIN/GLOBULIN RATIO 0.6 (1.1-1.5); ALKALINE PHOSPHATASE 42 IU/L (46-116); ANION GAP 3 (8-16); ASPARTATE AMINO TRANSFERASE 50 U/L (10-37); BILIRUBIN,TOTAL 0.7 MG/DL (0.1-1.0); BLOOD UREA NITROGEN 49 MG/DL (7-18); BUN/CREATININE RATIO 44.5 (10.0-20.0); CHLORIDE 104 MMOL/L (99-107); GLUCOSE 107 MG/DL (70-104); POTASSIUM 3.6 MMOL/L (3.5-5.1); SODIUM 138 MMOL/L (135-145); TOTAL CARBON DIOXIDE 30.7 MMOL/L (24-32); TOTAL PROTEIN 3.6 G/DL (6.4-8.2); eCRCL 43 ML/MIN; eGFR 51 ML/MIN
[2024-08-04 08:38] LABS: AMYLASE 32 U/L (25-115); LIPASE 17 U/L (16-77); MAGNESIUM 1.4 MG/DL (1.5-2.4)
[2024-08-04 08:41] LABS: PHOSPHORUS 1.2 MG/DL (2.3-4.5)
[2024-08-04] MEDS: magnesium sulf-water 4G/100mL 100 ML IV PRN (09:59)
[2024-08-04 11:04] LABS: INR 1.1 INR; PROTHROMBIN TIME 11.5 SECONDS (9.0-12.0)
[2024-08-04] MEDS ORDERED: fentaNYL/PF 50MCG/1 ML 2ML syringe ONE (14:26)
[2024-08-04] MEDS ORDERED: epiNEPHrine 0.1mg/ml 10ml syringe ONE (14:26)
[2024-08-04] MEDS ORDERED: MIDAZolam 1 MG/ML 5ML VIAL ONE (14:26)
[2024-08-04] MEDS ORDERED: glucagon, human recombinant 1mg kit ONE (14:26)
[2024-08-04] MEDS ORDERED: diphenhydrAMINE 50 mg/ml inj ONE (14:26)
[2024-08-04] MEDS: fentaNYL/PF 50MCG/1 ML 2ML syringe ONE (14:44)
[2024-08-04] MEDS: midazolam 1 mg/ML 2ml injection ONE (14:44)
[2024-08-04] MEDS: midazolam 1 mg/ML 2ml injection IV ONE (15:02)
[2024-08-04] MEDS: fentaNYL/PF 50MCG/1 ML 2ML syringe IV ONE (15:02)
[2024-08-04] MEDS ORDERED: NO HOME MEDS (15:10)
[2024-08-04] MEDS ORDERED: simethicone 40mg/0.6ml oral drops 30ml ONE (16:05)
[2024-08-04 20:21] LABS: BASOPHILS % (AUTO) 0.2 % (0-1); EOSINOPHILS # (AUTO) 0.1 X10'3 (0-0.9); EOSINOPHILS % (AUTO) 0.5 % (0-6); HEMATOCRIT 31.6 % (35.0-45.0); HEMOGLOBIN 10.6 g/dl (12.0-16.0); LYMPHOCYTES # (AUTO) 0.5 X10'3 (1.1-4.8); LYMPHOCYTES % (AUTO) 4.6 % (21-51); MEAN CORPUSCULAR HEMOGLOBIN 29.7 PG (27.0-31.0); MEAN CORPUSCULAR HGB CONC 33.5 g/dL (33.0-36.5); MEAN CORPUSCULAR VOLUME 88.7 FL (78-98); MEAN PLATELET VOLUME 7.2 FL (7.4-10.4); MONOCYTES # (AUTO) 0.9 X10'3 (0-0.9); MONOCYTES % (AUTO) 7.4 % (2-12); NEUTROPHILS # (AUTO) 10.1 X10'3 (1.8-7.7); NEUTROPHILS % (AUTO) 87.3 % (42-75); PLATELET COUNT 181 X10'3 (140-440); RED BLOOD COUNT 3.56 X10'6 (4.20-5.60); RED CELL DISTRIBUTION WIDTH 17.1 % (11.5-14.5); WHITE BLOOD COUNT 11.5 X10'3 (4.5-11.0)
[2024-08-04 20:55] LABS: ALANINE AMINOTRANSFERASE 31 U/L (12-78); ALBUMIN 1.3 G/DL (3.4-5.0); ALBUMIN/GLOBULIN RATIO 0.5 (1.1-1.5); ANION GAP 7 (8-16); ASPARTATE AMINO TRANSFERASE 46 U/L (10-37); BILIRUBIN,TOTAL 0.2 MG/DL (0.1-1.0); BLOOD UREA NITROGEN 45 MG/DL (7-18); BUN/CREATININE RATIO 43.3 (10.0-20.0); CALCIUM 9.2 MG/DL (8.5-10.1); CHLORIDE 107 MMOL/L (99-107); CREATININE 1.04 MG/DL (0.40-0.90); GLUCOSE 114 MG/DL (70-104); PHOSPHORUS 2.5 MG/DL (2.3-4.5); POTASSIUM 3.2 MMOL/L (3.5-5.1); SODIUM 141 MMOL/L (135-145); TOTAL CARBON DIOXIDE 26.8 MMOL/L (24-32); eCRCL 46 ML/MIN; eGFR 54 ML/MIN
[2024-08-04 20:57] LABS: ALKALINE PHOSPHATASE 61 IU/L (46-116); MAGNESIUM 2.5 MG/DL (1.5-2.4)
[2024-08-04] MEDS: normal saline 1000ml 1,000 ML IV SCH (22:10)
[2024-08-05] VITALS (7 sets, daily range): BP systolic 97–110; BP diastolic 71–74; PULSE 77–86; RESP 16–21; TEMP 97–98; O2SAT 94–100
[2024-08-05] MEDS ORDERED: LORazepam 2 mg/ml vial IV PRN (01:25)
[2024-08-05] MEDS: morphine 2 MG/ML inj. syringe IV ONE (03:42)
[2024-08-05] MEDS: potassium Cl 40MEQ/1/2NS 520ml 520 ML IV PRN (04:00)
[2024-08-05] MEDS: MVI, adult No.4 with vit. K 10 ML in dextrose 5% water 500ml 500 ML IV SCH (12:02)
[2024-08-05] MEDS: acetaminophen 325mg tablet PO PRN (16:24)
[2024-08-05 16:31] LABS: BASOPHILS % (AUTO) 0.3 % (0-1); EOSINOPHILS # (AUTO) 0.2 X10'3 (0-0.9); EOSINOPHILS % (AUTO) 1.9 % (0-6); HEMATOCRIT 28.7 % (35.0-45.0); HEMOGLOBIN 9.5 g/dl (12.0-16.0); LYMPHOCYTES % (AUTO) 8.8 % (21-51); MEAN CORPUSCULAR HEMOGLOBIN 29.8 PG (27.0-31.0); MEAN CORPUSCULAR HGB CONC 33.2 g/dL (33.0-36.5); MEAN CORPUSCULAR VOLUME 89.9 FL (78-98); MEAN PLATELET VOLUME 7.6 FL (7.4-10.4); MONOCYTES # (AUTO) 1.4 X10'3 (0-0.9); MONOCYTES % (AUTO) 12.5 % (2-12); NEUTROPHILS # (AUTO) 8.9 X10'3 (1.8-7.7); NEUTROPHILS % (AUTO) 76.5 % (42-75); PLATELET COUNT 198 X10'3 (140-440); RED CELL DISTRIBUTION WIDTH 17.7 % (11.5-14.5); WHITE BLOOD COUNT 11.6 X10'3 (4.5-11.0)
[2024-08-05 16:52] LABS: PROTHROMBIN TIME 10.3 SECONDS (9.0-12.0)
[2024-08-05 17:00] LABS: ALANINE AMINOTRANSFERASE 22 U/L (12-78); ALBUMIN/GLOBULIN RATIO 0.4 (1.1-1.5); ALKALINE PHOSPHATASE 79 IU/L (46-116); ANION GAP 6 (8-16); ASPARTATE AMINO TRANSFERASE 29 U/L (10-37); BILIRUBIN,TOTAL 0.3 MG/DL (0.1-1.0); BLOOD UREA NITROGEN 31 MG/DL (7-18); BUN/CREATININE RATIO 35.6 (10.0-20.0); CALCIUM 6.9 MG/DL (8.5-10.1); CHLORIDE 109 MMOL/L (99-107); CREATININE 0.87 MG/DL (0.40-0.90); GLUCOSE 145 MG/DL (70-104); MAGNESIUM 1.7 MG/DL (1.5-2.4); POTASSIUM 3.2 MMOL/L (3.5-5.1); SODIUM 140 MMOL/L (135-145); TOTAL CARBON DIOXIDE 25.4 MMOL/L (24-32); TOTAL PROTEIN 3.7 G/DL (6.4-8.2); eCRCL 54 ML/MIN; eGFR 66 ML/MIN
[2024-08-05 17:06] LABS: PHOSPHORUS 0.8 MG/DL (2.3-4.5)
[2024-08-05 17:21] LABS: ANISOCYTOSIS 1+; PLATELET ESTIMATE NORMAL; TOTAL CELLS COUNTED 100
[2024-08-05 17:24] LABS: ELLIPTOCYTES FEW
[2024-08-05] MEDS: HYDROcodone/acetaminophen 5mg/325mg tablet PO PRN (18:15)
[2024-08-05] MEDS: Neutra Phos packet PO SCH (22:57)
[2024-08-06 02:00] VITALS: BP 98/62; PULSE 71; RESP 20; TEMP 98; O2SAT 95
[2024-08-06 04:35] LABS: BASOPHILS % (AUTO) 0.3 % (0-1); EOSINOPHILS # (AUTO) 0.2 X10'3 (0-0.9); HEMATOCRIT 40.4 % (35.0-45.0); HEMOGLOBIN 13.5 g/dl (12.0-16.0); LYMPHOCYTES # (AUTO) 0.6 X10'3 (1.1-4.8); LYMPHOCYTES % (AUTO) 8.8 % (21-51); MEAN CORPUSCULAR HEMOGLOBIN 30.1 PG (27.0-31.0); MEAN CORPUSCULAR HGB CONC 33.5 g/dL (33.0-36.5); MEAN PLATELET VOLUME 7.6 FL (7.4-10.4); MONOCYTES # (AUTO) 0.7 X10'3 (0-0.9); MONOCYTES % (AUTO) 11.4 % (2-12); NEUTROPHILS # (AUTO) 4.9 X10'3 (1.8-7.7); NEUTROPHILS % (AUTO) 76.5 % (42-75); PLATELET COUNT 134 X10'3 (140-440); RED BLOOD COUNT 4.49 X10'6 (4.20-5.60); RED CELL DISTRIBUTION WIDTH 17.4 % (11.5-14.5); WHITE BLOOD COUNT 6.4 X10'3 (4.5-11.0)
[2024-08-06 04:51] LABS: ALANINE AMINOTRANSFERASE 20 U/L (12-78); ALBUMIN 1.1 G/DL (3.4-5.0); ALBUMIN/GLOBULIN RATIO 0.4 (1.1-1.5); ALKALINE PHOSPHATASE 57 IU/L (46-116); ANION GAP 5 (8-16); ASPARTATE AMINO TRANSFERASE 17 U/L (10-37); BILIRUBIN,TOTAL 0.2 MG/DL (0.1-1.0); BLOOD UREA NITROGEN 30 MG/DL (7-18); BUN/CREATININE RATIO 35.7 (10.0-20.0); CALCIUM 6.9 MG/DL (8.5-10.1); CHLORIDE 108 MMOL/L (99-107); CREATININE 0.84 MG/DL (0.40-0.90); GLUCOSE 121 MG/DL (70-104); MAGNESIUM 1.3 MG/DL (1.5-2.4); POTASSIUM 4.1 MMOL/L (3.5-5.1); SODIUM 136 MMOL/L (135-145); TOTAL PROTEIN 3.8 G/DL (6.4-8.2); eCRCL 56 ML/MIN; eGFR 69 ML/MIN
[2024-08-06 05:16] LABS: PHOSPHORUS 0.9 MG/DL (2.3-4.5)
[2024-08-06 06:00] VITALS: BP 109/68; PULSE 69; RESP 15; TEMP 97.2; O2SAT 100
[2024-08-06 06:57] VITALS: BP 108/76; PULSE 75
[2024-08-06] MEDS: magnesium Cl slow-release 64mg tablet PO PRN (09:06)
[2024-08-06 10:00] VITALS: BP 97/74; PULSE 73; RESP 24; TEMP 97.6; O2SAT 96
[2024-08-06] MEDS: Neutra Phos packet PO SCH (13:09)
[2024-08-06] MEDS: levoFLOXACIN-Levaquin 500mg/D5 100 ML IV SCH (13:18)
[2024-08-06 14:00] VITALS: BP 95/60; PULSE 82; RESP 20; TEMP 97.6; O2SAT 97
[2024-08-06] MEDS: LORazepam 1 MG tablet PO PRN (16:34)
[2024-08-06 19:43] VITALS: BP 108/77; PULSE 78; RESP 18; TEMP 97.6; O2SAT 97
[2024-08-07] VITALS (8 sets, daily range): BP systolic 96–119; BP diastolic 73–85; PULSE 61–105; RESP 16–26; TEMP 97.3–97.9; O2SAT 96–100
[2024-08-07] MEDS ORDERED: LORazepam 2 mg/ml vial IV PRN (01:25)
[2024-08-07 02:34] LABS: BASOPHILS # (AUTO) 0.1 X10'3 (0-0.2); BASOPHILS % (AUTO) 0.6 % (0-1); EOSINOPHILS # (AUTO) 0.2 X10'3 (0-0.9); EOSINOPHILS % (AUTO) 1.5 % (0-6); HEMATOCRIT 30.6 % (35.0-45.0); HEMOGLOBIN 10.3 g/dl (12.0-16.0); LYMPHOCYTES # (AUTO) 1.1 X10'3 (1.1-4.8); LYMPHOCYTES % (AUTO) 10.3 % (21-51); MEAN CORPUSCULAR HGB CONC 33.6 g/dL (33.0-36.5); MEAN CORPUSCULAR VOLUME 89.3 FL (78-98); MEAN PLATELET VOLUME 7.2 FL (7.4-10.4); MONOCYTES # (AUTO) 1.6 X10'3 (0-0.9); MONOCYTES % (AUTO) 15.7 % (2-12); NEUTROPHILS # (AUTO) 7.4 X10'3 (1.8-7.7); NEUTROPHILS % (AUTO) 71.9 % (42-75); PLATELET COUNT 258 X10'3 (140-440); RED BLOOD COUNT 3.43 X10'6 (4.20-5.60); RED CELL DISTRIBUTION WIDTH 17.3 % (11.5-14.5); WHITE BLOOD COUNT 10.2 X10'3 (4.5-11.0)
[2024-08-07 02:47] LABS: PROTHROMBIN TIME 10.2 SECONDS (9.0-12.0)
[2024-08-07 02:56] LABS: ALANINE AMINOTRANSFERASE 19 U/L (12-78); ALBUMIN 1.2 G/DL (3.4-5.0); ALBUMIN/GLOBULIN RATIO 0.4 (1.1-1.5); ALKALINE PHOSPHATASE 56 IU/L (46-116); ANION GAP 6 (8-16); ASPARTATE AMINO TRANSFERASE 18 U/L (10-37); BILIRUBIN,TOTAL 0.2 MG/DL (0.1-1.0); BLOOD UREA NITROGEN 23 MG/DL (7-18); BUN/CREATININE RATIO 28.4 (10.0-20.0); CHLORIDE 106 MMOL/L (99-107); CREATININE 0.81 MG/DL (0.40-0.90); GLUCOSE 150 MG/DL (70-104); POTASSIUM 4.3 MMOL/L (3.5-5.1); SODIUM 132 MMOL/L (135-145); TOTAL CARBON DIOXIDE 20.5 MMOL/L (24-32); TOTAL PROTEIN 4.2 G/DL (6.4-8.2); eCRCL 58 ML/MIN; eGFR 72 ML/MIN
[2024-08-07 03:01] LABS: PHOSPHORUS 0.7 MG/DL (2.3-4.5)
[2024-08-07 03:02] LABS: MAGNESIUM 0.9 MG/DL (1.5-2.4)
[2024-08-07] MEDS ORDERED: calcium chloride 100 MG/1 ML inj IV ONE (03:15)
[2024-08-07] MEDS ORDERED: potassium phosphate inj 30 MMOL in normal saline 250ml IV soln 250 ML IV ONE (03:15)
[2024-08-07 03:24] LABS: NUCLEATED RED BLOOD CELLS 1 /100WBC (0-0); TOTAL CELLS COUNTED 100
[2024-08-07 03:25] LABS: PLATELET ESTIMATE NORMAL
[2024-08-07] MEDS: magnesium sulf-water 2g/50mL 50 ML IV ONE (03:44)
[2024-08-07] MEDS: potassium phosphate inj 30 MMOL in normal saline 500ml IV soln 500 ML IV ONE (04:05)
[2024-08-07] MEDS: calcium chloride 1,000 MG in NS 100ml IV soln (110ml) IV ONE (08:09)
[2024-08-07] MEDS: magnesium sulf-water 4G/100mL 100 ML IV PRN (08:10)
[2024-08-07] MEDS: LORazepam 1 MG tablet PO PRN (16:52)
[2024-08-07 20:51] LABS: ALANINE AMINOTRANSFERASE 18 U/L (12-78); ALBUMIN 1.4 G/DL (3.4-5.0); ALBUMIN/GLOBULIN RATIO 0.5 (1.1-1.5); ALKALINE PHOSPHATASE 56 IU/L (46-116); ANION GAP 6 (8-16); ASPARTATE AMINO TRANSFERASE 15 U/L (10-37); BILIRUBIN,TOTAL 0.2 MG/DL (0.1-1.0); BLOOD UREA NITROGEN 23 MG/DL (7-18); BUN/CREATININE RATIO 25.6 (10.0-20.0); CALCIUM 6.3 MG/DL (8.5-10.1); CHLORIDE 104 MMOL/L (99-107); GLUCOSE 123 MG/DL (70-104); MAGNESIUM 1.8 MG/DL (1.5-2.4); PHOSPHORUS 1.5 MG/DL (2.3-4.5); POTASSIUM 4.9 MMOL/L (3.5-5.1); SODIUM 130 MMOL/L (135-145); TOTAL CARBON DIOXIDE 19.6 MMOL/L (24-32); TOTAL PROTEIN 4.5 G/DL (6.4-8.2); eCRCL 53 ML/MIN; eGFR 64 ML/MIN
[2024-08-08] VITALS (7 sets, daily range): BP systolic 86–105; BP diastolic 54–68; PULSE 81–101; RESP 16–20; TEMP 97.2–97.9; O2SAT 97–99
[2024-08-08] MEDS ORDERED: potassium Cl 40MEQ/1/2NS 520ml 520 ML IV PRN (02:15)
[2024-08-08] MEDS ORDERED: magnesium Cl slow-release 64mg tablet PO PRN (02:15)
[2024-08-08] MEDS: mag hydrox/Alum hydrox/simeth 30ml oral suspension PO PRN (05:02)
[2024-08-08 06:15] LABS: BASOPHILS % (AUTO) 0.3 % (0-1); EOSINOPHILS # (AUTO) 0.1 X10'3 (0-0.9); EOSINOPHILS % (AUTO) 0.8 % (0-6); HEMATOCRIT 32.6 % (35.0-45.0); HEMOGLOBIN 10.9 g/dl (12.0-16.0); LYMPHOCYTES # (AUTO) 1.1 X10'3 (1.1-4.8); LYMPHOCYTES % (AUTO) 8.1 % (21-51); MEAN CORPUSCULAR HEMOGLOBIN 29.8 PG (27.0-31.0); MEAN CORPUSCULAR HGB CONC 33.4 g/dL (33.0-36.5); MEAN CORPUSCULAR VOLUME 89.3 FL (78-98); MEAN PLATELET VOLUME 7.5 FL (7.4-10.4); MONOCYTES % (AUTO) 15.1 % (2-12); NEUTROPHILS # (AUTO) 9.9 X10'3 (1.8-7.7); NEUTROPHILS % (AUTO) 75.7 % (42-75); PLATELET COUNT 348 X10'3 (140-440); RED BLOOD COUNT 3.65 X10'6 (4.20-5.60); RED CELL DISTRIBUTION WIDTH 17.7 % (11.5-14.5)
[2024-08-08 06:36] LABS: ALANINE AMINOTRANSFERASE 14 U/L (12-78); ALBUMIN 1.3 G/DL (3.4-5.0); ALBUMIN/GLOBULIN RATIO 0.4 (1.1-1.5); ALKALINE PHOSPHATASE 56 IU/L (46-116); ANION GAP 8 (8-16); ASPARTATE AMINO TRANSFERASE 14 U/L (10-37); BILIRUBIN,TOTAL 0.2 MG/DL (0.1-1.0); BLOOD UREA NITROGEN 22 MG/DL (7-18); BUN/CREATININE RATIO 28.2 (10.0-20.0); CHLORIDE 105 MMOL/L (99-107); CREATININE 0.78 MG/DL (0.40-0.90); GLUCOSE 115 MG/DL (70-104); MAGNESIUM 2.3 MG/DL (1.5-2.4); POTASSIUM 4.6 MMOL/L (3.5-5.1); SODIUM 131 MMOL/L (135-145); TOTAL PROTEIN 4.4 G/DL (6.4-8.2); eCRCL 61 ML/MIN; eGFR 75 ML/MIN
[2024-08-08 06:46] LABS: CALCIUM 5.9 MG/DL (8.5-10.1)
[2024-08-08 06:47] LABS: PHOSPHORUS 1.2 MG/DL (2.3-4.5)
[2024-08-08] MEDS: pantoprazole 40mg Tablet.DR PO SCH (08:33)
[2024-08-08] MEDS: CALCIUM GLUC 1gm/50ml NACL,iso 50 ML IV ONE (09:55)
[2024-08-08] MEDS: albumin (human) 25% 100 ML IV solution IV ONE (13:55)
[2024-08-09] VITALS (8 sets, daily range): BP systolic 84–102; BP diastolic 55–72; PULSE 80–96; RESP 16–20; TEMP 97.1–97.7; O2SAT 96–99
[2024-08-09 05:55] LABS: BASOPHILS % (AUTO) 0.2 % (0-1); EOSINOPHILS # (AUTO) 0.1 X10'3 (0-0.9); EOSINOPHILS % (AUTO) 0.6 % (0-6); HEMATOCRIT 27.4 % (35.0-45.0); LYMPHOCYTES # (AUTO) 0.8 X10'3 (1.1-4.8); LYMPHOCYTES % (AUTO) 7.1 % (21-51); MEAN CORPUSCULAR HEMOGLOBIN 29.5 PG (27.0-31.0); MEAN CORPUSCULAR HGB CONC 32.9 g/dL (33.0-36.5); MEAN CORPUSCULAR VOLUME 89.5 FL (78-98); MEAN PLATELET VOLUME 7.2 FL (7.4-10.4); MONOCYTES # (AUTO) 1.6 X10'3 (0-0.9); MONOCYTES % (AUTO) 14.6 % (2-12); NEUTROPHILS # (AUTO) 8.7 X10'3 (1.8-7.7); NEUTROPHILS % (AUTO) 77.5 % (42-75); PLATELET COUNT 390 X10'3 (140-440); RED BLOOD COUNT 3.06 X10'6 (4.20-5.60); RED CELL DISTRIBUTION WIDTH 17.1 % (11.5-14.5); WHITE BLOOD COUNT 11.2 X10'3 (4.5-11.0)
[2024-08-09 06:11] LABS: ALANINE AMINOTRANSFERASE 13 U/L (12-78); ALBUMIN 2.1 G/DL (3.4-5.0); ALBUMIN/GLOBULIN RATIO 0.9 (1.1-1.5); ALKALINE PHOSPHATASE 38 IU/L (46-116); ANION GAP 9 (8-16); ASPARTATE AMINO TRANSFERASE 13 U/L (10-37); BILIRUBIN,TOTAL 0.3 MG/DL (0.1-1.0); BLOOD UREA NITROGEN 18 MG/DL (7-18); BUN/CREATININE RATIO 26.9 (10.0-20.0); CHLORIDE 105 MMOL/L (99-107); CREATININE 0.67 MG/DL (0.40-0.90); GLUCOSE 96 MG/DL (70-104); MAGNESIUM 1.2 MG/DL (1.5-2.4); PHOSPHORUS 1.5 MG/DL (2.3-4.5); POTASSIUM 4.4 MMOL/L (3.5-5.1); SODIUM 133 MMOL/L (135-145); TOTAL CARBON DIOXIDE 19.3 MMOL/L (24-32); TOTAL PROTEIN 4.4 G/DL (6.4-8.2); eCRCL 71 ML/MIN; eGFR 90 ML/MIN
[2024-08-09 06:18] LABS: CALCIUM 5.8 MG/DL (8.5-10.1)
[2024-08-09] MEDS: midodrine tablet 2.5 MG TABLET PO SCH (11:50)
[2024-08-10] VITALS (8 sets, daily range): BP systolic 90–107; BP diastolic 63–73; PULSE 70–89; RESP 12–18; TEMP 97–98.5; O2SAT 98–100
[2024-08-10 09:44] LABS: BASOPHILS # (AUTO) 0.1 X10'3 (0-0.2); EOSINOPHILS # (AUTO) 0.1 X10'3 (0-0.9); HEMOGLOBIN 11.1 g/dl (12.0-16.0); NEUTROPHILS # (AUTO) 9.3 X10'3 (1.8-7.7)
[2024-08-10 09:45] LABS: EOSINOPHILS % (AUTO) 0.7 % (0-6); HEMATOCRIT 34.3 % (35.0-45.0); LYMPHOCYTES % (AUTO) 8.5 % (21-51); MEAN CORPUSCULAR HEMOGLOBIN 29.2 PG (27.0-31.0); MEAN CORPUSCULAR HGB CONC 32.5 g/dL (33.0-36.5); MEAN CORPUSCULAR VOLUME 89.9 FL (78-98); MEAN PLATELET VOLUME 7.2 FL (7.4-10.4); MONOCYTES # (AUTO) 0.8 X10'3 (0-0.9); MONOCYTES % (AUTO) 7.2 % (2-12); NEUTROPHILS % (AUTO) 82.6 % (42-75); PLATELET COUNT 772 X10'3 (140-440); RED BLOOD COUNT 3.82 X10'6 (4.20-5.60); RED CELL DISTRIBUTION WIDTH 17.8 % (11.5-14.5); WHITE BLOOD COUNT 11.3 X10'3 (4.5-11.0)
[2024-08-10 10:09] LABS: ALANINE AMINOTRANSFERASE 18 U/L (12-78); ALBUMIN 2.2 G/DL (3.4-5.0); ALBUMIN/GLOBULIN RATIO 0.7 (1.1-1.5); ALKALINE PHOSPHATASE 42 IU/L (46-116); ANION GAP 10 (8-16); ASPARTATE AMINO TRANSFERASE 14 U/L (10-37); BILIRUBIN,TOTAL 0.2 MG/DL (0.1-1.0); BLOOD UREA NITROGEN 20 MG/DL (7-18); BUN/CREATININE RATIO 25.6 (10.0-20.0); CALCIUM 6.2 MG/DL (8.5-10.1); CHLORIDE 103 MMOL/L (99-107); CREATININE 0.78 MG/DL (0.40-0.90); GLUCOSE 168 MG/DL (70-104); POTASSIUM 5.1 MMOL/L (3.5-5.1); SODIUM 129 MMOL/L (135-145); TOTAL PROTEIN 5.3 G/DL (6.4-8.2); eCRCL 61 ML/MIN; eGFR 75 ML/MIN
[2024-08-10 12:48] LABS: ANISOCYTOSIS 1+; PLATELET ESTIMATE INCREASED; TOTAL CELLS COUNTED 100
[2024-08-10] MEDS: Melatonin 3mg tablet PO ONE (22:25)
[2024-08-11] VITALS (8 sets, daily range): BP systolic 90–104; BP diastolic 60–74; PULSE 82–100; RESP 14–17; TEMP 97.3–98.7; O2SAT 96–99
[2024-08-11 03:00] LABS: BASOPHILS # (AUTO) 0.1 X10'3 (0-0.2); EOSINOPHILS # (AUTO) 0.1 X10'3 (0-0.9); EOSINOPHILS % (AUTO) 0.4 % (0-6); HEMOGLOBIN 10.5 g/dl (12.0-16.0); MONOCYTES # (AUTO) 1.6 X10'3 (0-0.9); RED BLOOD COUNT 3.47 X10'6 (4.20-5.60)
[2024-08-11 03:01] LABS: BASOPHILS % (AUTO) 0.3 % (0-1); HEMATOCRIT 31.2 % (35.0-45.0); LYMPHOCYTES # (AUTO) 0.7 X10'3 (1.1-4.8); LYMPHOCYTES % (AUTO) 4.5 % (21-51); MEAN CORPUSCULAR HEMOGLOBIN 30.2 PG (27.0-31.0); MEAN CORPUSCULAR HGB CONC 33.6 g/dL (33.0-36.5); MEAN CORPUSCULAR VOLUME 89.9 FL (78-98); MONOCYTES % (AUTO) 9.8 % (2-12); PLATELET COUNT 731 X10'3 (140-440); RED CELL DISTRIBUTION WIDTH 17.9 % (11.5-14.5); WHITE BLOOD COUNT 16.5 X10'3 (4.5-11.0)
[2024-08-11 03:14] LABS: ALANINE AMINOTRANSFERASE 15 U/L (12-78); ALBUMIN 1.8 G/DL (3.4-5.0); ALBUMIN/GLOBULIN RATIO 0.6 (1.1-1.5); ALKALINE PHOSPHATASE 43 IU/L (46-116); ANION GAP 9 (8-16); ASPARTATE AMINO TRANSFERASE 19 U/L (10-37); BILIRUBIN,TOTAL 0.2 MG/DL (0.1-1.0); BLOOD UREA NITROGEN 24 MG/DL (7-18); BUN/CREATININE RATIO 26.1 (10.0-20.0); CHLORIDE 101 MMOL/L (99-107); CREATININE 0.92 MG/DL (0.40-0.90); GLUCOSE 112 MG/DL (70-104); POTASSIUM 5.6 MMOL/L (3.5-5.1); SODIUM 129 MMOL/L (135-145); TOTAL CARBON DIOXIDE 18.8 MMOL/L (24-32); TOTAL PROTEIN 4.9 G/DL (6.4-8.2); eCRCL 51 ML/MIN; eGFR 62 ML/MIN
[2024-08-11 03:30] LABS: CALCIUM 5.5 MG/DL (8.5-10.1); TOTAL CELLS COUNTED 100
[2024-08-11] MEDS: CALCIUM GLUC 1gm/50ml NACL,iso 50 ML IV ONE ×3 (04:04→22:45)
[2024-08-11] MEDS: pantoprazole 40mg Tablet.DR PO SCH (07:32)
[2024-08-11] MEDS: sodium polystyrene sulfonate 15gm/60ml oral suspension PO ONE (09:00)
[2024-08-11] MEDS ORDERED: iohexol 300mg/ml 100ml inj. ONE (15:47)
[2024-08-11 20:39] LABS: ALANINE AMINOTRANSFERASE 18 U/L (12-78); ALBUMIN 1.8 G/DL (3.4-5.0); ALBUMIN/GLOBULIN RATIO 0.5 (1.1-1.5); ALKALINE PHOSPHATASE 45 IU/L (46-116); ANION GAP 10 (8-16); ASPARTATE AMINO TRANSFERASE 14 U/L (10-37); BILIRUBIN,TOTAL 0.2 MG/DL (0.1-1.0); BLOOD UREA NITROGEN 28 MG/DL (7-18); BUN/CREATININE RATIO 25.9 (10.0-20.0); CHLORIDE 99 MMOL/L (99-107); CREATININE 1.08 MG/DL (0.40-0.90); GLUCOSE 111 MG/DL (70-104); SODIUM 127 MMOL/L (135-145); TOTAL CARBON DIOXIDE 18.4 MMOL/L (24-32); TOTAL PROTEIN 5.3 G/DL (6.4-8.2); eCRCL 44 ML/MIN; eGFR 52 ML/MIN
[2024-08-11] MEDS: clindamycin 600mg/D5W 50ml 50 ML IV ONE (22:10)
[2024-08-11] MEDS: PERFLUTREN PROTEIN-A MICROSPHR (Optison) 0.22 MG/ML 3ML VIAL IV ONE (22:10)
[2024-08-12] VITALS (8 sets, daily range): BP systolic 91–109; BP diastolic 63–78; PULSE 83–115; RESP 16–29; TEMP 96.9–98.1; O2SAT 93–100
[2024-08-12] MEDS: ALPRAZolam 0.25mg tablet PO PRN (20:00)
[2024-08-12] MEDS: pantoprazole 40mg Tablet.DR PO SCH (20:00)
[2024-08-13 02:00] VITALS: BP 94/54; PULSE 98; RESP 19; TEMP 97.4; O2SAT 98
[2024-08-13 02:02] LABS: BASOPHILS # (AUTO) 0.1 X10'3 (0-0.2); BASOPHILS % (AUTO) 0.8 % (0-1); EOSINOPHILS # (AUTO) 0.1 X10'3 (0-0.9); EOSINOPHILS % (AUTO) 0.8 % (0-6); HEMATOCRIT 32.1 % (35.0-45.0); HEMOGLOBIN 10.7 g/dl (12.0-16.0); LYMPHOCYTES # (AUTO) 0.8 X10'3 (1.1-4.8); LYMPHOCYTES % (AUTO) 4.2 % (21-51); MEAN CORPUSCULAR HEMOGLOBIN 29.7 PG (27.0-31.0); MEAN CORPUSCULAR HGB CONC 33.2 g/dL (33.0-36.5); MEAN CORPUSCULAR VOLUME 89.4 FL (78-98); MEAN PLATELET VOLUME 6.2 FL (7.4-10.4); MONOCYTES # (AUTO) 1.5 X10'3 (0-0.9); NEUTROPHILS # (AUTO) 15.9 X10'3 (1.8-7.7); NEUTROPHILS % (AUTO) 86.2 % (42-75); PLATELET COUNT 829 X10'3 (140-440); RED BLOOD COUNT 3.59 X10'6 (4.20-5.60); RED CELL DISTRIBUTION WIDTH 17.4 % (11.5-14.5); WHITE BLOOD COUNT 18.5 X10'3 (4.5-11.0)
[2024-08-13 02:26] LABS: ALANINE AMINOTRANSFERASE 18 U/L (12-78); ALBUMIN 1.6 G/DL (3.4-5.0); ALBUMIN/GLOBULIN RATIO 0.5 (1.1-1.5); ALKALINE PHOSPHATASE 44 IU/L (46-116); ANION GAP 10 (8-16); ASPARTATE AMINO TRANSFERASE 15 U/L (10-37); BILIRUBIN,TOTAL 0.1 MG/DL (0.1-1.0); BLOOD UREA NITROGEN 37 MG/DL (7-18); BUN/CREATININE RATIO 31.1 (10.0-20.0); CHLORIDE 100 MMOL/L (99-107); CREATININE 1.19 MG/DL (0.40-0.90); GLUCOSE 80 MG/DL (70-104); POTASSIUM 4.8 MMOL/L (3.5-5.1); SODIUM 128 MMOL/L (135-145); TOTAL PROTEIN 5.1 G/DL (6.4-8.2); eCRCL 40 ML/MIN; eGFR 46 ML/MIN
[2024-08-13 02:34] LABS: TOTAL CELLS COUNTED 100
[2024-08-13 03:08] LABS: CALCIUM 5.9 MG/DL (8.5-10.1)
[2024-08-13] MEDS: CALCIUM GLUC 1gm/50ml NACL,iso 50 ML IV ONE (03:39)
[2024-08-13 06:00] VITALS: BP 93/65; PULSE 96; RESP 16; TEMP 97.7; O2SAT 100
[2024-08-13 08:00] VITALS: RESP 27; O2SAT 94
[2024-08-13] MEDS: levoFLOXACIN-Levaquin 250mg/D5 50 ML IV SCH (08:09)
[2024-08-13] MEDS: ondansetron/PF 4mg/2ml inj IV PRN (09:53)
[2024-08-13] MEDS: lactose-reduced food (Ensure High Protein) 237ml bottle PO SCH (13:00)
[2024-08-13 17:07] VITALS: BP 97/63; PULSE 79; RESP 21; TEMP 97.7; O2SAT 99
[2024-08-13 18:00] VITALS: BP 95/70; PULSE 83; RESP 14; TEMP 97.2; O2SAT 98
[2024-08-13 22:00] VITALS: BP 91/65; PULSE 73; RESP 18; TEMP 97.4; O2SAT 98
[2024-08-14] VITALS (23 sets, daily range): BP systolic 88–152; BP diastolic 43–90; PULSE 74–103; RESP 14–18; TEMP 97.4–98.3; O2SAT 90–100
[2024-08-14 05:09] LABS: BASOPHILS # (AUTO) 0.1 X10'3 (0-0.2); EOSINOPHILS # (AUTO) 0.2 X10'3 (0-0.9); MONOCYTES # (AUTO) 0.9 X10'3 (0-0.9); RED BLOOD COUNT 3.56 X10'6 (4.20-5.60)
[2024-08-14 05:11] LABS: BASOPHILS % (AUTO) 0.4 % (0-1); EOSINOPHILS % (AUTO) 1.2 % (0-6); HEMATOCRIT 32.1 % (35.0-45.0); HEMOGLOBIN 10.6 g/dl (12.0-16.0); LYMPHOCYTES # (AUTO) 0.5 X10'3 (1.1-4.8); LYMPHOCYTES % (AUTO) 2.7 % (21-51); MEAN CORPUSCULAR HEMOGLOBIN 29.8 PG (27.0-31.0); MEAN CORPUSCULAR HGB CONC 33.1 g/dL (33.0-36.5); MEAN PLATELET VOLUME 6.8 FL (7.4-10.4); MONOCYTES % (AUTO) 4.5 % (2-12); NEUTROPHILS # (AUTO) 18.3 X10'3 (1.8-7.7); NEUTROPHILS % (AUTO) 91.2 % (42-75); PLATELET COUNT 903 X10'3 (140-440); RED CELL DISTRIBUTION WIDTH 17.6 % (11.5-14.5)
[2024-08-14 05:25] LABS: ALANINE AMINOTRANSFERASE 14 U/L (12-78); ALBUMIN 1.5 G/DL (3.4-5.0); ALBUMIN/GLOBULIN RATIO 0.4 (1.1-1.5); ALKALINE PHOSPHATASE 45 IU/L (46-116); ANION GAP 8 (8-16); ASPARTATE AMINO TRANSFERASE 26 U/L (10-37); BILIRUBIN,TOTAL 0.3 MG/DL (0.1-1.0); BLOOD UREA NITROGEN 39 MG/DL (7-18); BUN/CREATININE RATIO 36.8 (10.0-20.0); CHLORIDE 98 MMOL/L (99-107); CREATININE 1.06 MG/DL (0.40-0.90); GLUCOSE 152 MG/DL (70-104); MAGNESIUM 1.7 MG/DL (1.5-2.4); PHOSPHORUS 1.7 MG/DL (2.3-4.5); POTASSIUM 5.6 MMOL/L (3.5-5.1); SODIUM 125 MMOL/L (135-145); TOTAL CARBON DIOXIDE 19.5 MMOL/L (24-32); TOTAL PROTEIN 5.1 G/DL (6.4-8.2); eCRCL 45 ML/MIN; eGFR 53 ML/MIN
[2024-08-14 05:28] LABS: TOTAL CELLS COUNTED 100
[2024-08-14 05:29] LABS: CALCIUM 5.6 MG/DL (8.5-10.1)
[2024-08-14] MEDS: CALCIUM GLUC 1gm/50ml NACL,iso 50 ML IV ONE (05:59)
[2024-08-14] MEDS: HYDROmorphone/PF 0.2 MG/ML SYRINGE IV ONE (10:41)
[2024-08-14] MEDS: clindamycin 600mg/D5W 50ml 50 ML IV ONE (12:05)
[2024-08-14] MEDS ORDERED: BUPIVACAINE liposomal/PF 13.3 MG/ML 10mL vial IM ONE ×2 (12:12→12:55)
[2024-08-14] MEDS ORDERED: NORepinephrine 8mg/ 250ml NS 250 ML IV ONE (12:12)
[2024-08-14] MEDS ORDERED: BUPIVAcaine 2.5mg/ml inj 50ml vial (contains preservative) ONE ×2 (12:12→12:55)
[2024-08-14] MEDS ORDERED: LIDOcaine 1% (10mg/ml) 2ml vial ONE (12:12)
[2024-08-14] MEDS: morphine 4 MG/ML inj SYRINge IV ONE (12:24)
[2024-08-14] MEDS ORDERED: rocuronium 10mg/ml inj IV ONE (12:50)
[2024-08-14] MEDS ORDERED: propofol inj 20 ML IV ONE (12:51)
[2024-08-14] MEDS ORDERED: fentaNYL /PF 50mcg/ml 5ml ampule ONE (12:52)
[2024-08-14] MEDS ORDERED: MIDAZolam 1 MG/ML 5ML VIAL ONE (12:52)
[2024-08-14] MEDS: Neutra Phos packet PO SCH (13:00)
[2024-08-14] MEDS ORDERED: sevoflurane 250ml liquid IH ONE (13:03)
[2024-08-14] MEDS ORDERED: albumin (Human) 5% 250ml 500 ML IV ONE (14:05)
[2024-08-14] MEDS ORDERED: albumin (Human) 5% 250ml 250 ML IV ONE ×2 (14:07)
[2024-08-14] MEDS ORDERED: ondansetron/PF 4mg/2ml inj IV PRN ×2 (14:55→16:05)
[2024-08-14] MEDS ORDERED: propofol 10mg/ml 20ml vial IV PRN (16:00)
[2024-08-14] MEDS ORDERED: fentaNYL/PF 50MCG/1 ML 2ML syringe IV PRN (16:00)
[2024-08-14] MEDS ORDERED: potassium Cl 20mEq in D5-NS 1,000 ML IV SCH (16:05)
[2024-08-14] MEDS ORDERED: metoclopramide 5 mg/ml inj IV PRN (16:05)
[2024-08-14] MEDS ORDERED: albuterol 2.5 MG/3 ML nebule NEB PRN (16:05)
[2024-08-14 16:19] LABS: ABG BASE EXCESS -10.7 mmol/L (-2.0-3.0); ABG HCO3 14.4 mmol/L (21.0-28.0); ABG OXYGEN SATURATION 99.7 % (94.0-98.0); ABG PCO2 (T) 27.2 mmHg (32.0-45.0); ABG PH (T) 7.333 (7.350-7.450); ABG PO2 (T) 221.7 mmHg (83.0-108.0); FCOHb 0.6 % (0.5-1.5); FHHb 0.3 % (0.0-5.0); FMetHb 0.3 % (0.0-1.5); FO2Hb 98.8 % (94.0-98.0); MODE VENT - SIMV; PATIENT TEMPERATURE 35.2; PEEP 5 cm H2O; RESPIRATORY RATE 14 b/min; TIDAL VOLUME 500 mL; TOTAL HEMOGLOBIN 9.6 G/dl (12.0-16.0)
[2024-08-14 17:23] LABS: ALANINE AMINOTRANSFERASE 11 U/L (12-78); ALBUMIN 2.2 G/DL (3.4-5.0); ALBUMIN/GLOBULIN RATIO 0.8 (1.1-1.5); ALKALINE PHOSPHATASE 38 IU/L (46-116); ANION GAP 10 (8-16); ASPARTATE AMINO TRANSFERASE 9 U/L (10-37); BILIRUBIN,TOTAL 0.4 MG/DL (0.1-1.0); BLOOD UREA NITROGEN 36 MG/DL (7-18); BUN/CREATININE RATIO 43.4 (10.0-20.0); CALCIUM 7.5 MG/DL (8.5-10.1); CHLORIDE 99 MMOL/L (99-107); CREATININE 0.83 MG/DL (0.40-0.90); GLUCOSE 218 MG/DL (70-104); POTASSIUM 5.5 MMOL/L (3.5-5.1); SODIUM 125 MMOL/L (135-145); TOTAL CARBON DIOXIDE 15.8 MMOL/L (24-32); TOTAL PROTEIN 4.9 G/DL (6.4-8.2); eCRCL 57 ML/MIN; eGFR 70 ML/MIN
[2024-08-14] MEDS: propofol 1000mg/100ml bottle 100 ML IV SCH (18:00)
[2024-08-14] MEDS: ringers solution, lacted 1,000 ML IV SCH (18:00)
[2024-08-14] MEDS: FENTANYL-0.9 % NACL/PF 100 ML IV SCH (18:00)
[2024-08-14] MEDS: dextrose 5%-normal saline 1,000 ML IV SCH (18:45)
[2024-08-14] MEDS: gabapentin 300mg capsule PO SCH (18:47)
[2024-08-14] MEDS: clindamycin 600mg/D5W 50ml 50 ML IV SCH (19:20)
[2024-08-15] VITALS (34 sets, daily range): BP systolic 72–125; BP diastolic 46–83; PULSE 73–104; RESP 9–32; O2SAT 90–100
[2024-08-15 01:10] LABS: BASOPHILS % (AUTO) 0.2 % (0-1); EOSINOPHILS % (AUTO) 0.1 % (0-6); HEMATOCRIT 27.7 % (35.0-45.0); HEMOGLOBIN 9.2 g/dl (12.0-16.0); LYMPHOCYTES # (AUTO) 0.1 X10'3 (1.1-4.8); LYMPHOCYTES % (AUTO) 0.7 % (21-51); MEAN CORPUSCULAR HEMOGLOBIN 29.9 PG (27.0-31.0); MEAN CORPUSCULAR HGB CONC 33.4 g/dL (33.0-36.5); MEAN CORPUSCULAR VOLUME 89.3 FL (78-98); MEAN PLATELET VOLUME 6.7 FL (7.4-10.4); MONOCYTES # (AUTO) 0.3 X10'3 (0-0.9); MONOCYTES % (AUTO) 1.7 % (2-12); NEUTROPHILS # (AUTO) 18.2 X10'3 (1.8-7.7); NEUTROPHILS % (AUTO) 97.3 % (42-75); PLATELET COUNT 715 X10'3 (140-440); RED CELL DISTRIBUTION WIDTH 16.9 % (11.5-14.5); WHITE BLOOD COUNT 18.7 X10'3 (4.5-11.0)
[2024-08-15 01:24] LABS: ALANINE AMINOTRANSFERASE 12 U/L (12-78); ALBUMIN 2.1 G/DL (3.4-5.0); ALBUMIN/GLOBULIN RATIO 0.7 (1.1-1.5); ALKALINE PHOSPHATASE 43 IU/L (46-116); ANION GAP 9 (8-16); ASPARTATE AMINO TRANSFERASE 21 U/L (10-37); BILIRUBIN,TOTAL 0.2 MG/DL (0.1-1.0); BLOOD UREA NITROGEN 32 MG/DL (7-18); BUN/CREATININE RATIO 30.5 (10.0-20.0); CHLORIDE 99 MMOL/L (99-107); CREATININE 1.05 MG/DL (0.40-0.90); GLUCOSE 213 MG/DL (70-104); MAGNESIUM 1.4 MG/DL (1.5-2.4); PHOSPHORUS 2.6 MG/DL (2.3-4.5); SODIUM 124 MMOL/L (135-145); TOTAL CARBON DIOXIDE 16.1 MMOL/L (24-32); TOTAL PROTEIN 5.2 G/DL (6.4-8.2); TRIGLYCERIDES 86 MG/DL (20-135); eCRCL 45 ML/MIN; eGFR 53 ML/MIN
[2024-08-15 01:30] LABS: POTASSIUM 6.8 MMOL/L (3.5-5.1)
[2024-08-15] MEDS: dextrose 50%-water 50ml dispensing syringe IV ONE (01:59)
[2024-08-15] MEDS: insulin regular, human 10 units/0.1 ml syringe IV ONE (01:59)
[2024-08-15] MEDS: normal saline 1000ml 1,000 ML IV SCH (02:00)
[2024-08-15] MEDS: CALCIUM GLUC 1gm/50ml NACL,iso 50 ML IV PRN (02:01)
[2024-08-15] MEDS: SODIUM ZIRCONIUM CYCLOSILICATE 10 GM POWD.PACK PO ONE ×2 (02:05→08:14)
[2024-08-15 04:08] LABS: ABG BASE EXCESS -10.2 mmol/L (-2.0-3.0); ABG HCO3 14.6 mmol/L (21.0-28.0); ABG PCO2 (T) 28.3 mmHg (32.0-45.0); ABG PO2 (T) 127.3 mmHg (83.0-108.0); FCOHb 0.7 % (0.5-1.5); FMetHb 0.3 % (0.0-1.5); PATIENT TEMPERATURE 36.6; PEEP 8 cm H2O; RESPIRATORY RATE 14 b/min; TIDAL VOLUME 500 mL; TOTAL HEMOGLOBIN 9.6 G/dl (12.0-16.0)
[2024-08-15 06:32] LABS: ANION GAP 10 (8-16); BLOOD UREA NITROGEN 30 MG/DL (7-18); BUN/CREATININE RATIO 36.6 (10.0-20.0); CALCIUM 6.9 MG/DL (8.5-10.1); CHLORIDE 101 MMOL/L (99-107); CREATININE 0.82 MG/DL (0.40-0.90); GLUCOSE 109 MG/DL (70-104); POTASSIUM 5.9 MMOL/L (3.5-5.1); SODIUM 127 MMOL/L (135-145); eCRCL 58 ML/MIN; eGFR 71 ML/MIN
[2024-08-15] MEDS ORDERED: calcium gluconate inj. 2 GM in normal saline 100ml IV soln 100 ML IV ONE ×2 (07:10→07:20)
[2024-08-15] MEDS: morphine 4 MG/ML inj SYRINge IV PRN (07:55)
[2024-08-15] MEDS: CALCIUM GLUC 1gm/50ml NACL,iso 50 ML IV ONE ×2 (09:11→10:14)
[2024-08-15] MEDS: magnesium sulf-water 2g/50mL 50 ML IV PRN (12:01)
[2024-08-15] MEDS: gabapentin 300mg capsule PO SCH (13:02)
[2024-08-15] MEDS: ketorolac trometh 30MG/ML vial 30 MG/ML VIAL IV PRN (13:05)
[2024-08-15] MEDS: albumin (Human) 5% 250ml 250 ML IV ONE ×4 (18:25→21:38)
[2024-08-15] MEDS: albumin (Human) 5% 250ml 500 ML IV ONE (18:31)
[2024-08-16] VITALS (24 sets, daily range): BP systolic 76–101; BP diastolic 44–68; PULSE 82–98; RESP 14–34; O2SAT 95–99
[2024-08-16] MEDS: HYDROcodone/acetaminophen 10/325mg tab PO PRN (02:55)
[2024-08-16 06:18] LABS: BASOPHILS % (AUTO) 0.3 % (0-1); EOSINOPHILS # (AUTO) 0.2 X10'3 (0-0.9); EOSINOPHILS % (AUTO) 1.4 % (0-6); HEMATOCRIT 26.6 % (35.0-45.0); HEMOGLOBIN 8.7 g/dl (12.0-16.0); LYMPHOCYTES # (AUTO) 0.2 X10'3 (1.1-4.8); LYMPHOCYTES % (AUTO) 1.9 % (21-51); MEAN CORPUSCULAR HEMOGLOBIN 29.5 PG (27.0-31.0); MEAN CORPUSCULAR HGB CONC 32.7 g/dL (33.0-36.5); MEAN CORPUSCULAR VOLUME 90.2 FL (78-98); MEAN PLATELET VOLUME 6.7 FL (7.4-10.4); MONOCYTES # (AUTO) 0.6 X10'3 (0-0.9); NEUTROPHILS # (AUTO) 11.9 X10'3 (1.8-7.7); NEUTROPHILS % (AUTO) 91.4 % (42-75); PLATELET COUNT 579 X10'3 (140-440); RED BLOOD COUNT 2.95 X10'6 (4.20-5.60); RED CELL DISTRIBUTION WIDTH 17.4 % (11.5-14.5)
[2024-08-16 06:52] LABS: ALANINE AMINOTRANSFERASE 11 U/L (12-78); ALBUMIN 2.7 G/DL (3.4-5.0); ALKALINE PHOSPHATASE 35 IU/L (46-116); ANION GAP 12 (8-16); ASPARTATE AMINO TRANSFERASE 11 U/L (10-37); BILIRUBIN,TOTAL 0.4 MG/DL (0.1-1.0); BLOOD UREA NITROGEN 29 MG/DL (7-18); BUN/CREATININE RATIO 40.3 (10.0-20.0); CALCIUM 6.8 MG/DL (8.5-10.1); CHLORIDE 105 MMOL/L (99-107); CREATININE 0.72 MG/DL (0.40-0.90); GLUCOSE 90 MG/DL (70-104); PHOSPHORUS 3.3 MG/DL (2.3-4.5); POTASSIUM 3.9 MMOL/L (3.5-5.1); SODIUM 135 MMOL/L (135-145); TOTAL CARBON DIOXIDE 18.1 MMOL/L (24-32); TOTAL PROTEIN 5.4 G/DL (6.4-8.2); eCRCL 66 ML/MIN; eGFR 83 ML/MIN
[2024-08-16] MEDS: ringers solution, lacted 1,000 ML IV ONE (06:58)
[2024-08-16 08:34] LABS: TOTAL CELLS COUNTED 100
[2024-08-16 08:35] LABS: ANISOCYTOSIS 1+; PLATELET ESTIMATE INCREASED
[2024-08-16 08:39] LABS: BURR CELLS FEW
[2024-08-16] MEDS: albumin (Human) 5% 250ml 250 ML IV ONE ×2 (09:34→10:50)
[2024-08-16] MEDS: midodrine tablet 2.5 MG TABLET PO ONE (13:02)
[2024-08-16] MEDS: midodrine tablet 2.5 MG TABLET PO SCH (16:30)
[2024-08-17] VITALS (24 sets, daily range): BP systolic 80–108; BP diastolic 44–74; PULSE 77–105; RESP 14–32; TEMP 97.2–98.9; O2SAT 93–99
[2024-08-17 03:04] LABS: BASOPHILS # (AUTO) 0.1 X10'3 (0-0.2); BASOPHILS % (AUTO) 0.7 % (0-1); EOSINOPHILS # (AUTO) 0.1 X10'3 (0-0.9); EOSINOPHILS % (AUTO) 1.7 % (0-6); LYMPHOCYTES # (AUTO) 0.3 X10'3 (1.1-4.8); MEAN CORPUSCULAR HGB CONC 33.3 g/dL (33.0-36.5); MEAN CORPUSCULAR VOLUME 90.1 FL (78-98); MEAN PLATELET VOLUME 6.5 FL (7.4-10.4); MONOCYTES # (AUTO) 0.4 X10'3 (0-0.9); MONOCYTES % (AUTO) 5.6 % (2-12); NEUTROPHILS # (AUTO) 6.9 X10'3 (1.8-7.7); PLATELET COUNT 465 X10'3 (140-440); RED BLOOD COUNT 2.35 X10'6 (4.20-5.60); RED CELL DISTRIBUTION WIDTH 17.3 % (11.5-14.5); WHITE BLOOD COUNT 7.9 X10'3 (4.5-11.0)
[2024-08-17 03:09] LABS: HEMATOCRIT 21.1 % (35.0-45.0)
[2024-08-17 03:29] LABS: ALANINE AMINOTRANSFERASE 11 U/L (12-78); ALBUMIN 2.2 G/DL (3.4-5.0); ALBUMIN/GLOBULIN RATIO 0.8 (1.1-1.5); ALKALINE PHOSPHATASE 39 IU/L (46-116); ANION GAP 8 (8-16); ASPARTATE AMINO TRANSFERASE 16 U/L (10-37); BILIRUBIN,TOTAL 0.3 MG/DL (0.1-1.0); BLOOD UREA NITROGEN 19 MG/DL (7-18); BUN/CREATININE RATIO 29.2 (10.0-20.0); CHLORIDE 108 MMOL/L (99-107); CREATININE 0.65 MG/DL (0.40-0.90); GLUCOSE 102 MG/DL (70-104); MAGNESIUM 1.9 MG/DL (1.5-2.4); PHOSPHORUS 1.5 MG/DL (2.3-4.5); POTASSIUM 3.8 MMOL/L (3.5-5.1); SODIUM 135 MMOL/L (135-145); TOTAL CARBON DIOXIDE 19.5 MMOL/L (24-32); TOTAL PROTEIN 4.9 G/DL (6.4-8.2); eCRCL 73 ML/MIN; eGFR > 90 ML/MIN
[2024-08-17] MEDS: midodrine 5mg tablet PO SCH (08:17)
[2024-08-17 11:16] LABS: HEMATOCRIT 23.8 % (35.0-45.0); MEAN CORPUSCULAR HGB CONC 33.6 g/dL (33.0-36.5); MEAN CORPUSCULAR VOLUME 89.2 FL (78-98); MEAN PLATELET VOLUME 6.4 FL (7.4-10.4); PLATELET COUNT 482 X10'3 (140-440); RED BLOOD COUNT 2.68 X10'6 (4.20-5.60); RED CELL DISTRIBUTION WIDTH 16.5 % (11.5-14.5); WHITE BLOOD COUNT 7.8 X10'3 (4.5-11.0)
[2024-08-17] MEDS ORDERED: calcium chloride 100 MG/1 ML inj IV ONE (18:05)
[2024-08-17] MEDS ORDERED: magnesium sulf-water 2g/50mL 50 ML IV ONE (20:40)
[2024-08-17] MEDS: CALCIUM GLUC 1gm/50ml NACL,iso 50 ML IV ONE (21:28)
[2024-08-18] VITALS (7 sets, daily range): BP systolic 91–107; BP diastolic 55–70; PULSE 71–97; RESP 15–26; TEMP 96.8–98; O2SAT 95–100
[2024-08-18] MEDS: morphine 2 MG/ML inj. syringe IV PRN (01:56)
[2024-08-18] MEDS: Neutra Phos packet PO PRN (01:57)
[2024-08-18 06:52] LABS: BASOPHILS # (AUTO) 0.1 X10'3 (0-0.2); BASOPHILS % (AUTO) 0.7 % (0-1); EOSINOPHILS # (AUTO) 0.2 X10'3 (0-0.9); EOSINOPHILS % (AUTO) 2.7 % (0-6); HEMATOCRIT 25.8 % (35.0-45.0); HEMOGLOBIN 8.6 g/dl (12.0-16.0); LYMPHOCYTES # (AUTO) 0.4 X10'3 (1.1-4.8); LYMPHOCYTES % (AUTO) 5.3 % (21-51); MEAN CORPUSCULAR HEMOGLOBIN 29.7 PG (27.0-31.0); MEAN CORPUSCULAR HGB CONC 33.5 g/dL (33.0-36.5); MEAN CORPUSCULAR VOLUME 88.5 FL (78-98); MEAN PLATELET VOLUME 6.4 FL (7.4-10.4); MONOCYTES # (AUTO) 0.5 X10'3 (0-0.9); MONOCYTES % (AUTO) 6.6 % (2-12); NEUTROPHILS # (AUTO) 6.6 X10'3 (1.8-7.7); NEUTROPHILS % (AUTO) 84.7 % (42-75); PLATELET COUNT 454 X10'3 (140-440); RED BLOOD COUNT 2.91 X10'6 (4.20-5.60); RED CELL DISTRIBUTION WIDTH 16.8 % (11.5-14.5); WHITE BLOOD COUNT 7.8 X10'3 (4.5-11.0)
[2024-08-18 07:38] LABS: ALANINE AMINOTRANSFERASE 15 U/L (12-78); ALBUMIN 2.1 G/DL (3.4-5.0); ALBUMIN/GLOBULIN RATIO 0.6 (1.1-1.5); ALKALINE PHOSPHATASE 46 IU/L (46-116); ANION GAP 11 (8-16); ASPARTATE AMINO TRANSFERASE 17 U/L (10-37); BILIRUBIN,TOTAL 0.3 MG/DL (0.1-1.0); BLOOD UREA NITROGEN 19 MG/DL (7-18); BUN/CREATININE RATIO 31.1 (10.0-20.0); CALCIUM 6.1 MG/DL (8.5-10.1); CHLORIDE 108 MMOL/L (99-107); CREATININE 0.61 MG/DL (0.40-0.90); GLUCOSE 87 MG/DL (70-104); MAGNESIUM 1.5 MG/DL (1.5-2.4); PHOSPHORUS 1.8 MG/DL (2.3-4.5); POTASSIUM 4.8 MMOL/L (3.5-5.1); SODIUM 137 MMOL/L (135-145); TOTAL CARBON DIOXIDE 18.4 MMOL/L (24-32); TOTAL PROTEIN 5.5 G/DL (6.4-8.2); eCRCL 78 ML/MIN; eGFR > 90 ML/MIN
[2024-08-18] MEDS: calcium carbonate 500mg chew tablet PO SCH (10:01)
[2024-08-18] MEDS: calcium gluconate inj. 3 GM in normal saline 100ml IV soln 100 ML IV ONE (11:51)
[2024-08-18] MEDS: sodium phosphate inj. 30 MMOL in dextrose 5%-water 250 ML IV ONE (12:55)
[2024-08-18] MEDS: aspirin 81mg tab.chew PO ONE (16:43)
[2024-08-19] MEDS: HYDROcodone/acetaminophen 10/325mg tab PO PRN (00:04)
[2024-08-19 02:35] VITALS: BP 92/58; PULSE 83; RESP 16; TEMP 96.3; O2SAT 95
[2024-08-19 03:17] VITALS: PULSE 77; RESP 18; O2SAT 96
[2024-08-19 06:30] VITALS: BP 108/58; PULSE 80; RESP 17; TEMP 97; O2SAT 98
[2024-08-19 06:56] LABS: BASOPHILS # (AUTO) 0.1 X10'3 (0-0.2); BASOPHILS % (AUTO) 1.1 % (0-1); EOSINOPHILS # (AUTO) 0.4 X10'3 (0-0.9); EOSINOPHILS % (AUTO) 4.8 % (0-6); HEMATOCRIT 27.9 % (35.0-45.0); HEMOGLOBIN 9.3 g/dl (12.0-16.0); LYMPHOCYTES # (AUTO) 0.5 X10'3 (1.1-4.8); MEAN CORPUSCULAR HEMOGLOBIN 29.8 PG (27.0-31.0); MEAN CORPUSCULAR HGB CONC 33.3 g/dL (33.0-36.5); MEAN CORPUSCULAR VOLUME 89.4 FL (78-98); MEAN PLATELET VOLUME 6.3 FL (7.4-10.4); MONOCYTES # (AUTO) 0.6 X10'3 (0-0.9); MONOCYTES % (AUTO) 7.7 % (2-12); NEUTROPHILS # (AUTO) 6.3 X10'3 (1.8-7.7); NEUTROPHILS % (AUTO) 80.4 % (42-75); PLATELET COUNT 428 X10'3 (140-440); RED BLOOD COUNT 3.12 X10'6 (4.20-5.60); RED CELL DISTRIBUTION WIDTH 17.1 % (11.5-14.5); WHITE BLOOD COUNT 7.9 X10'3 (4.5-11.0)
[2024-08-19 07:44] LABS: ALANINE AMINOTRANSFERASE 18 U/L (12-78); ALBUMIN/GLOBULIN RATIO 0.6 (1.1-1.5); ALKALINE PHOSPHATASE 46 IU/L (46-116); ANION GAP 10 (8-16); ASPARTATE AMINO TRANSFERASE 13 U/L (10-37); BILIRUBIN,TOTAL 0.2 MG/DL (0.1-1.0); BLOOD UREA NITROGEN 23 MG/DL (7-18); BUN/CREATININE RATIO 52.3 (10.0-20.0); CALCIUM 6.8 MG/DL (8.5-10.1); CHLORIDE 107 MMOL/L (99-107); CREATININE 0.44 MG/DL (0.40-0.90); POTASSIUM 4.8 MMOL/L (3.5-5.1); SODIUM 136 MMOL/L (135-145); TOTAL CARBON DIOXIDE 18.6 MMOL/L (24-32); TOTAL PROTEIN 5.5 G/DL (6.4-8.2); eCRCL 108 ML/MIN; eGFR > 90 ML/MIN
[2024-08-19] MEDS: aspirin 81mg tab.chew PO SCH (08:55)
[2024-08-19 09:55] LABS: MAGNESIUM 1.5 MG/DL (1.5-2.4)
[2024-08-19 09:56] LABS: GLUCOSE 78 MG/DL (70-104)
[2024-08-19 11:29] VITALS: BP 95/56; PULSE 85; RESP 12; TEMP 97.5; O2SAT 96
[2024-08-19 16:32] VITALS: BP 103/70; PULSE 78; RESP 17; TEMP 98.4; O2SAT 98
== END 2024-08-19 18:14 | DRG 166 ==
LOC: ER 18:10 → ED HOLD 21:09 → ORTHO 4S 08-03 15:08 → CICU 2S 08-03 19:30 → PCU 3S 08-04 21:41 → PACU 08-14 13:05 → CICU 2S 08-14 15:48 → PCU 3S 08-17 17:44
PROVIDERS: ADMIT Internal Medicine Critical Care Medicine; ATTEND Internal Medicine
PROC: BW211ZZ Computerized Tomography (CT Scan) of Abdomen and Pelvis using Low Osmolar Contrast (ICD-10-PCS; 2024-08-02)
PROC: 30233N1 Transfusion of Nonautologous Red Blood Cells into Peripheral Vein, Percutaneous Approach (ICD-10-PCS; 2024-08-03)
PROC: 0W9B3ZZ Drainage of Left Pleural Cavity, Percutaneous Approach (ICD-10-PCS; 2024-08-04)
PROC: 0DB68ZX Excision of Stomach, Via Natural or Artificial Opening Endoscopic, Diagnostic (ICD-10-PCS; 2024-08-04)
PROC: 02HV33Z Insertion of Infusion Device into Superior Vena Cava, Percutaneous Approach (ICD-10-PCS; 2024-08-05)
PROC: B548ZZA Ultrasonography of Superior Vena Cava, Guidance (ICD-10-PCS; 2024-08-05)
PROC: BW241ZZ Computerized Tomography (CT Scan) of Chest and Abdomen using Low Osmolar Contrast (ICD-10-PCS; 2024-08-12)
PROC: 0W3C4ZZ Control Bleeding in Mediastinum, Percutaneous Endoscopic Approach (ICD-10-PCS; 2024-08-14)
PROC: 0W9930Z Drainage of Right Pleural Cavity with Drainage Device, Percutaneous Approach (ICD-10-PCS; 2024-08-14)
PROC: 8E0W4CZ Robotic Assisted Procedure of Trunk Region, Percutaneous Endoscopic Approach (ICD-10-PCS; 2024-08-14)
PROC: 3E0L4GC Introduction of Other Therapeutic Substance into Pleural Cavity, Percutaneous Endoscopic Approach (ICD-10-PCS; principal; 2024-08-14 13:03)
PROC: 05HF33Z Insertion of Infusion Device into Left Cephalic Vein, Percutaneous Approach (ICD-10-PCS; 2024-08-17)
DX: J94.0 Chylous effusion (principal); G93.41 Metabolic encephalopathy; K29.01 Acute gastritis with bleeding; J96.00 Acute respiratory failure, unspecified whether with hypoxia or hypercapnia; K85.90 Acute pancreatitis without necrosis or infection, unspecified; E87.1 Hypo-osmolality and hyponatremia; N17.9 Acute kidney failure, unspecified; D62 Acute posthemorrhagic anemia; E87.20 Acidosis, unspecified; I82.C11 Acute embolism and thrombosis of right internal jugular vein; F32.A Depression, unspecified; K21.00 Gastro-esophageal reflux disease with esophagitis, without bleeding; F41.9 Anxiety disorder, unspecified; E83.52 Hypercalcemia; E87.6 Hypokalemia; F10.220 Alcohol dependence with intoxication, uncomplicated; I25.10 Atherosclerotic heart disease of native coronary artery without angina pectoris; K76.0 Fatty (change of) liver, not elsewhere classified; E87.8 Other disorders of electrolyte and fluid balance, not elsewhere classified; E88.09 Other disorders of plasma-protein metabolism, not elsewhere classified; E78.00 Pure hypercholesterolemia, unspecified; I10 Essential (primary) hypertension; Z95.1 Presence of aortocoronary bypass graft; Z88.0 Allergy status to penicillin; Z79.899 Other long term (current) drug therapy; Z85.41 Personal history of malignant neoplasm of cervix uteri; Z93.3 Colostomy status; Z90.49 Acquired absence of other specified parts of digestive tract; Z82.49 Family history of ischemic heart disease and other diseases of the circulatory system; Z86.74 Personal history of sudden cardiac arrest; Z86.73 Personal history of transient ischemic attack (TIA), and cerebral infarction without residual deficits; Z85.528 Personal history of other malignant neoplasm of kidney
CPT/HCPCS: 36410; 36415; 36430; 36600; 43239; 70450; 71045; 71260; 73120; 73551; 73590; 74177; 76937; 80048; 80053; 80305; 80320; 81001; 82150; 82272; 82330; 82570; 82803; 82948; 83036; 83605; 83690; 83735; 83930; 83935; 83970; 84100; 84132; 84145; 84295; 84300; 84478; 84484; 85007; 85008; 85018; 85025; 85027; 85610; 85651; 86885; 86900; 86901; 86920; 87040; 87081; 87088; 87207; 92508; 92616; 93005; 93306; 93971; 94002; 94003; 94664; 94760; 97110; 97116; 97161; 97530; 97535; 99152; 99291; A4333; A4565; A4615; A4618; A4620; A6212; A6213; A6222; A6223; A6253; A6258; A6402; A6446; A6449; A7000; A7048; C1751; C1758; C9250; G0378; J0131; J0171; J0610; J0630; J0666; J1171; J1200; J1610; J1644; J1815; J1885; J1956; J2003; J2060; J2250; J2270; J2354; J2405; J2470; J2704; J3010; J3411; J3475; J3480; J3489; J3490; J7030; J7040; J7042; J7060; J7120; P9016; P9045; P9047; Q9967

== ENCOUNTER 2024-10-02 22:56 | Emergency (ER) | payer BC, MEDICARE ==
[~2024-10-02] VITALS: Ht 157.5 cm; Wt 61.0 kg
[~2024-10-02 22:56] MED LIST changes: -DULO30CA52 PO; -FOLI1TAB27 PO; -LISI20TA28 PO; -MIRT-87 PO; +NO HOME MEDS; -OMEP40CA21 PO; -thiamine tablet PO
[2024-10-02] MEDS: LIDOcaine 1% W/epiNEPHrine 1:100,000 20ml vial SQ ONE (23:05)
[2024-10-02 23:06] VITALS: TEMP 98
[2024-10-02] MEDS: TETanus/Pertussis (Acell)/Diphther VAC/PF (Tdap-Adult) 0.5ml syringe IMVAC ONE (23:29)
[2024-10-03 02:31] VITALS: BP 125/80; PULSE 93; RESP 16; O2SAT 98
== END 2024-10-03 02:36 | disposition home or self-care (01) ==
LOC: ER 22:56
DX: S01.01XA Laceration without foreign body of scalp, initial encounter (principal); K21.9 Gastro-esophageal reflux disease without esophagitis; I10 Essential (primary) hypertension; F41.9 Anxiety disorder, unspecified; F32.A Depression, unspecified; Z88.1 Allergy status to other antibiotic agents; Z88.0 Allergy status to penicillin; Z98.890 Other specified postprocedural states; W18.30XA Fall on same level, unspecified, initial encounter; Y93.89 Activity, other specified; Y92.89 Other specified places as the place of occurrence of the external cause; Y99.8 Other external cause status
CPT/HCPCS: 12011; 70450; 72125; 90471; 90715; 99285; A6449

== ENCOUNTER 2024-10-13 05:44 | Emergency (ER) | payer BC, MEDICARE ==
[~2024-10-13] VITALS: Ht 157.5 cm; Wt 59.1 kg
[2024-10-13 05:53] VITALS: TEMP 98.2
[2024-10-13 07:19] VITALS: BP 126/74; PULSE 92; RESP 18; O2SAT 100
[2024-10-13] MEDS ORDERED: CHLO25CA10 PO (07:32)
== END 2024-10-13 08:17 | disposition home or self-care (01) ==
LOC: ER 05:45
DX: F10.239 Alcohol dependence with withdrawal, unspecified (principal); I10 Essential (primary) hypertension; I25.10 Atherosclerotic heart disease of native coronary artery without angina pectoris; K21.9 Gastro-esophageal reflux disease without esophagitis; F41.9 Anxiety disorder, unspecified; F32.A Depression, unspecified; Z85.41 Personal history of malignant neoplasm of cervix uteri; Z88.0 Allergy status to penicillin; Z98.890 Other specified postprocedural states; Y90.9 Presence of alcohol in blood, level not specified
CPT/HCPCS: 99283

== ENCOUNTER 2024-11-24 23:09 | Emergency (ER) | payer BC, MEDICAID ==
[~2024-11-24] VITALS: Ht 157.5 cm; Wt 61.0 kg
[~2024-11-24 23:09] MED LIST changes: +CHLO25CA10 PO
--- NOTE | 2024-11-25 02:28 | Physician Documentation ---
History of Present Illness ~ Chief Complaint: Laceration Stated Complaint: FALL Time Seen by MD: 02:09 OK to notify your PCP?: Yes Primary Medical Doctor: ADA AQUINO Source: patient, RN/MD, EMS, RN notes reviewed, EMS notes reviewed, old records Mode of Arrival: EMS Exam Limitations: no limitations HPI 59 year old female presents to the emergency department via EMS for complaints of a laceration to her right taoism.She states that while walking on the sidewalk she had fallen and hit hear head on the cement. She admits to drinking tonight. Patient denies any loss of consciousness or blood thinners. She states that her tetanus shot is up to date. Patient denies any other associated symptoms at this time. Patient denies any other alleviating or exacerbating factors. Tetanus Within 5 Years: No Medication Reconciliation Allergies: Coded Allergies: Penicillins (Verified Allergy, Unknown, hives, 10/13/24) HAS RECIEVED ROCEPHIN 12/2023 Scheduled Doxycycline Hyclate (Doxycycline Hyclate), 1 CAP PO Q12H Scheduled PRN Chlordiazepoxide Hcl (Librium), 2 CAP PO Q6H PRN for alcohol withdrawal Miscellaneous Medications Home Med List (No Home Medications), (Reported) Past Medical History Past Medical History: Seizures, Hypertension, Pneumonia, *GI/HEPATOBILIARY*, GERD, GI Bleed, Pancreatitis, Extremity Fracture, Cellulitis, Cervical Cancer/Dysplasia, Anxiety, Depression Past Surgical History: abdominal surgery, other Other Past Surgical History: Colon resection, hernia repair, colostomy Patient History: (CAD) Coronary arteriosclerosis FATHER, Name: Franki Adam, Born [birth year], Age: 91, Onset:76 (Cancer) Malignant carcinoid tumor MOTHER, Name: Tree Adam (Untreated HTN which lead to renal failure and CHF.Renal Cancer), , Age: 76, Cause: Renal failure (ARF), acute on chronic, Onset:50's - 60 Paternal Grandmother, , Cause: Colon cancer, Onset:60 years & older ([place]) Myocardial infarction FATHER, Name: Franki Adam, Born [birth year], Age: 91, Onset:76 No Family History of: (CABG) Coronary artery bypass grafting (CHF) Congestive heart failure (COPD) Chronic obstructive lung disease (CVA) Cerebrovascular accident (DM Type 2) Diabetes mellitus type 2 (DM Type1) Diabetes mellitus type 1 (PVD) Peripheral vascular disease (TIA) Transient ischemic attack Alzheimer's disease Aortic aneurysm Asthma Cardiac arrest Hypercholesterolemia Smoking Status: Never smoker Drug Use: none Review of Systems All Other Systems at this time: Reviewed and Negative ROS As stated above in the HPI, otherwise all systems are reviewed and negative. Physical Exam Vital Signs: RN Vital Signs have been reviewed: Yes, Temperature: 97.5, Source: Oral, Heart Rate: 81, Respiratory Rate: 13, BP: 126/89, Pulse Oximetry: 97, Weight: 61.000 Oxygen Flow Rate: 0 Pulse Oximetry Reflects: adequate oxygenation Physical Exam General: Smell of alcohol and urine on patient. Blood on the patients face. The patient is well developed, well nourished, nontoxic appearing and is in no acute distress. Skin: [place], warm and dry with no rashes. HEENT: 4cm by 2cm deep and gaping laceration to the right taoism. Head was normocephalic and atraumatic. Eyes - pupils equal, round, reactive to light and accommodation. Extraocular movements were intact. Conjunctivae were nonicteric. Ears - bilateral tympanic membranes were normal. The mouth and oropharynx were clear with moist mucous membranes. There were no pharyngeal exudates or erythema. Neck: Supple and nontender. There was no jugular venous distention, lymphadenopathy, thyromegaly or masses. Chest: Clear to auscultation bilaterally without wheezes, rales or rhonchi. No accessory muscle use. No dullness to percussion. Heart: Rate regular and rhythmic. S1, S2. No murmurs. Palpation of the chest wall was normal. No rubs or thrills. Abdomen: Soft, nontender and nondistended. Positive bowel sounds. No guarding or rebound. No hepatosplenomegaly or palpable masses. Extremities: No cyanosis, clubbing or edema. The patient moves all extremities. Pulses were equal and symmetric. Neurologic: Cranial nerves II-XII were intact. Sensation was intact to light touch throughout. Motor strength was 5/5 in all four extremities. Deep tendon reflexes were intact in both upper and lower extremities. Psychologic: The patient was oriented to person, place and time. The patient demonstrated appropriate judgement and insight. Procedures Laceration/Wound Repair Laceration : Location: right eyebrow Length (cm): 4 Anesthesia: Lidocaine w/ Epi Volume Anesthetic (mls): 3 Margins: revised Repaired: skin Suture Size/Type: 4-0, ethilon Number of Superficial Sutures: 3 Layer Closure?: Yes Tolerated Procedure Well?: yes, no complications Progress Results/Orders Reviewed/noted all lab results: Yes Results/Orders Orders - ANNA BUCHANAN MD Ct Cervical Spine (11/25/24 00:15) Ct Head (11/25/24 00:20) Laceration/I&D Tray Set Up (11/25/24 02:34) Cult Urine + [place] Ct (11/25/24 03:30) Completed Orders - ANNA BUCHANAN MD Stat Ekg (11/24/24 ) Ct Cervical Spine (11/25/24 00:15) Ct Head (11/25/24 00:20) Cbc/Diff (11/25/24 02:09) MG (11/25/24 02:09) Ethanol (11/25/24 02:09) BMP (11/25/24 02:09) Hs Troponin I W Calculations (11/25/24 02:09) Liver Panel (11/25/24 02:11) Tetanus/Pertuss/Diph Acell/Pf (Boostrix (11/25/24 02:35) Lidocaine 1% W/Epi 1:100,000 (Xylocaine (11/25/24 02:40) Ua W/Microscopic, Cult If Ind (11/25/24 03:18) Doxycycline 100mg Capsule (Vibramycin 10 (11/25/24 03:46) Medications Received in ER Medications (Trade) Dose Ordered Sig/Van Route PRN Reason Start Time Stop Time Status Last Admin Dose Admin (Boostrix vaccine syringe) 0.5 ml ONCE ONCE IMVAC 11/25/24 02:35 11/25/24 02:36 DC 11/25/24 02:56 0.5 ML (VIBRAMYCIN 100mg capsule) 100 mg ONCE STAT PO 11/25/24 03:46 11/25/24 03:47 DC 11/25/24 03:51 100 MG Vital Signs 11/24/24 11/25/24 11/25/24 11/25/24 23:28 00:30 01:30 02:54 Temp 97.5 Pulse 81 80 87 78 Resp 13 17 19 B/P (MAP) 126/89 131/86 (101) 144/97 (113) 141/81 (101) Pulse Ox 97 93 97 99 O2 Flow Rate 0 0 0 11/25/24 11/25/24 03:41 04:10 Temp 97.5 Pulse 87 Resp 14 16 B/P (MAP) 120/87 Pulse Ox 100 Laboratory Tests Test 11/25/24 02:19 11/25/24 03:18 White Blood Count 5.7 Red Blood Count 4.20 Hemoglobin 10.1 L Hematocrit 31.1 L Mean Corpuscular Volume 73.9 L Mean Corpuscular Hemoglobin 24.0 L Mean Corpuscular Hemoglobin Concent 32.5 L Red Cell Distribution Width 21.1 H Platelet Count 464 H Mean Platelet Volume 6.5 L Neutrophils (%) (Auto) 72.3 Lymphocytes (%) (Auto) 18.6 L Monocytes (%) (Auto) 7.6 Eosinophils (%) (Auto) 0.6 Basophils (%) (Auto) 0.9 Neutrophils # (Auto) 4.1 Lymphocytes # (Auto) 1.1 Monocytes # (Auto) 0.4 Eosinophils # (Auto) 0.0 Basophils # (Auto) 0.1 CBC Comment Platelet Estimate Increased Red Blood Cell Morphology Perf Hypochromasia 1+ Basophilic Stippling Anisocytosis 3+ Microcytosis 1+ Target Cells Few Tear Drop Cells Few Elliptocytes 1+ Schistocytes Few Sodium Level 140 Potassium Level 4.0 Chloride Level 104 Carbon Dioxide Level 27.3 Anion Gap 9 Blood Urea Nitrogen 8 Creatinine 0.73 Estimated GFR/1.73 m2 81 BUN/Creatinine Ratio 11.0 Glucose Level 82 Calcium Level 8.4 L Magnesium Level 1.7 Total Bilirubin 0.2 Direct Bilirubin < 0.1 Aspartate Amino Transf (AST/SGOT) 19 Alanine Aminotransferase (ALT/SGPT) 17 Alkaline Phosphatase 79 Troponin I High Sensitivity 5 Total Protein 7.0 Albumin 3.2 L Globulin 3.8 Albumin/Globulin Ratio 0.8 L Chemistry Comments Ethyl Alcohol Level 243 H Urine Specimen Description Voided Urine Color Straw Urine Clarity Slightly cloudy Urine pH 6.0 Urine Specific [place] <=1.005 Urine Protein Negative Urine Glucose (UA) Negative Urine Ketones Negative Urine Occult Blood Moderate H Urine Nitrite Positive H Urine Bilirubin Negative Urine Urobilinogen 0.2 Urine Leukocyte Esterase Negative Urine RBC 3-10 Urine WBC 0-4 Urine Squamous Epithelial Cells None seen Urine Bacteria 4+ Urine Mucus None seen Urine Culture Indicated Indicated Volume Urine Centrifuged 10 ml Urine Comment Microbiology Date/Time Source Procedure Growth Status 11/25/24 03:30 Urine Voided Urine Culture - Preliminary Culture received. Resulted Re-Evaluation Re-Evaluation : Re-Evaluation: Improved Progress Patient was seen and examined. Patient was given reassurance. The patient was intoxicated laboratory work was obtained. Laceration was repaired. Because she was intoxicated with potential distracting injury CT scan of the head and C- spine were obtained and fortunately were reassuring. Patient later received a tetanus shot and her laceration was repaired it was quite deep and will require a few extra days to heal. Patient was started on doxycycline. Patient's laboratory work was reassuring. MCV was 73.9 microcytosis. Some slight anemia as well with a hemoglobin of 10 and 31. Platelets 464. Chemistry also was within normal limits troponin negative magnesium 1.7 potassium 4.0 tox screen was positive for alcohol at 243 however at this level patient has been ambulating. Patient's urinalysis showed some trace blood positive nitrates and leukocyte esterase negative with 3-10 RBCs 0-4 WBCs no squamous epithelial cells but 4+ bacteria considered treating the patient for UTI but held off at this time since she has no symptoms. Ultimately patient was held in the ER until she has a safe disposition. She was at the [place] and can not return at this time intoxicated. 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 Pulse oximetry monitor interpretation shows normal oxygenation 97% room air, normal, my interpretation. EKG/XRAY/CT/US/VASC/MRI EKG : Additional Comment 2327: EDMA Dewayne interpreted EKG to show sinus rhythm at a rate of 84 with normal axis and normal interval with Q waves V1 and V2. Qtc of 452. CT #1: Impression Clinical History fall, headstrike, forehead lac Comparison CT HEAD on 10/02/2024, 201 images. Technique: All CT scans at this medical facility are performed using dose modulation techniques as appropriate to a performed exam including the following: Automated exposure control was utilized; adjustment of the mA and/or kV according to patient size; and use of iterative reconstruction technique. All CT studies are reported to the Dose Index Registry of the [employer]. Without Contrast Radiation Dose: CTDI (mGy): 57.69; DLP (mGy-cm): 1001.87 ANALIA BINGHAMN, [id number] FINDINGS: The visualized portion of the orbits, scalp, and calvarium are unremarkable. No extraaxial fluid collection is noted. No acute infarct, hemorrhage, mass, or fluid collection is noted. No hydrocephalus or midline shift is identified. The visualized portions of the paranasal sinuses and mastoid air cells are clear. IMPRESSION: Unremarkable noncontrast head CT. This report was electronically signed by Leanne Gross MD on 11/25/2024 2:33:19 AM. Electronically Signed by:LEANNE GROSS MD Date & Time: 11/25/246 CT #2: Impression Clinical History fall Comparison None Technique: All CT scans at this medical facility are performed using dose modulation techniques as appropriate to a performed exam including the following: Automated exposure control was utilized; adjustment of the mA and/or kV according to patient size; and use of iterative reconstruction technique. All CT studies are reported to the Dose Index Registry of the [employer]. Without Contrast Radiation Dose: CTDI (mGy): 19.44; DLP (mGy-cm): 391.91 ANALIA BINGHAMN, [id number] FINDINGS: Osseous structures are anatomically aligned, with no evidence of fracture, dislocation, or subluxation. Normal bony mineralization is noted. Disc space narrowing is identified at C3-4 and C5-6. Right facet hypertrophy at C5-6 is seen. There is moderate to severe right neural foraminal narrowing at C5-6, and mild bilateral neuroforaminal narrowing at C3-4. The spinal cord is not well visualized. If concern for trauma or degenerative change persists, MRI may be considered for further detailed evaluation. Visualized portions of the airway and mastoid air spaces are unremarkable. Visualized portions of the lung apices are clear. IMPRESSION: No acute fracture. Degenerative disc disease with neural foraminal narrowing as described. This report was electronically signed by Leanne Gross MD on 11/25/2024 2:42:45 AM. Electronically Signed by:LEANNE GROSS MD Date & Time: 11/25/24 0246 Medical Decision Making Additional info obtained from: old records Differential Dx:Considerations: Include: Abrasion, Avulsion, Contusion, Laceration, Fracture, Hematoma, Neurovascular injury, Retained foreign body, Other Departure Time of Disposition: 03:31 Disposition: 01 HOME / SELF CARE / HOMELESS Impression: Primary Impression: Alcoholic intoxication Qualified Codes: F10.920 - Alcohol use, unspecified with intoxication, uncomplicated Additional Impression: Right forehead laceration repair Condition: Stable Discharge Instructions: Laceration Care, Adult, [id number] Additional Instructions: Patient is advised to remove sutures in 10 days. Referrals: NO PRIMARY CARE PROVIDER (PCP) Prescriptions Doxycycline Hyclate (Doxycycline Hyclate) 100 Mg Capsule 1 CAP PO Q12H for 7 Days, #14 CAP Prov: ANNA BUCHANAN MD 11/25/24 Education Educated: Patient Educated regarding: diagnosis, treatment, need for follow up Signature Scribe Signature: Scribed for Anna Buchanan MD by Mavis Foster . 11/25/24 02:41 Attestation: The note accurately reflects work and decisions made by me.Anna Buchanan MD 11/25/24 02:28 ANNA BUCHANAN MD Nov 25, 2024 02:28 MAVIS GARCIA Nov 25, 2024 02:41
[2024-11-25 02:34] LABS: BASOPHILS # (AUTO) 0.1 X10'3 (0-0.2); BASOPHILS % (AUTO) 0.9 % (0-1); EOSINOPHILS % (AUTO) 0.6 % (0-6); HEMATOCRIT 31.1 % (35.0-45.0); HEMOGLOBIN 10.1 g/dl (12.0-16.0); LYMPHOCYTES # (AUTO) 1.1 X10'3 (1.1-4.8); LYMPHOCYTES % (AUTO) 18.6 % (21-51); MEAN CORPUSCULAR HGB CONC 32.5 g/dL (33.0-36.5); MEAN CORPUSCULAR VOLUME 73.9 FL (78-98); MEAN PLATELET VOLUME 6.5 FL (7.4-10.4); MONOCYTES # (AUTO) 0.4 X10'3 (0-0.9); MONOCYTES % (AUTO) 7.6 % (2-12); NEUTROPHILS # (AUTO) 4.1 X10'3 (1.8-7.7); NEUTROPHILS % (AUTO) 72.3 % (42-75); PLATELET COUNT 464 X10'3 (140-440); RED CELL DISTRIBUTION WIDTH 21.1 % (11.5-14.5); WHITE BLOOD COUNT 5.7 X10'3 (4.5-11.0)
--- NOTE | 2024-11-25 02:36 | RADIOLOGY REPORT ---
Clinical History fall, headstrike, forehead lac Comparison CT HEAD on 10/02/2024, 201 images. Technique: All CT scans at this medical facility are performed using dose modulation techniques as appropriate t o a performed exam including the following: Automated exposure control was utilized; adjustment of th e mA and/or kV according to patient size; and use of iterative reconstruction technique. All CT studies are reported to the Dose Index Registry of the [employer]. Without Contrast Radiation Dose: CTDI (mGy): 57.69; DLP (mGy-cm): 1001.87 LAUREN BINGHAM, [id number] FINDINGS: The visualized portion of the orbits, scalp, and calvarium are unremarkable. No extraaxial fluid collection is noted. No acute infarct, hemorrhage, mass, or fluid collection is noted. No hydrocephalus or midline shift is identified. The visualized portions of the paranasal sinuses and mastoid air cells are clear. IMPRESSION: Unremarkable noncontrast head CT. This report was electronically signed by Leonard Rice MD on 11/25/2024 2:33:19 AM.
[2024-11-25 02:45] LABS: ALANINE AMINOTRANSFERASE 17 U/L (12-78); ALBUMIN 3.2 G/DL (3.4-5.0); ALBUMIN/GLOBULIN RATIO 0.8 (1.1-1.5); ALKALINE PHOSPHATASE 79 IU/L (46-116); ANION GAP 9 (8-16); ASPARTATE AMINO TRANSFERASE 19 U/L (10-37); BILIRUBIN,TOTAL 0.2 MG/DL (0.1-1.0); BLOOD UREA NITROGEN 8 MG/DL (7-18); CALCIUM 8.4 MG/DL (8.5-10.1); CHLORIDE 104 MMOL/L (99-107); CREATININE 0.73 MG/DL (0.40-0.90); ETHANOL 243 MG/DL (<10); GLUCOSE 82 MG/DL (70-104); MAGNESIUM 1.7 MG/DL (1.5-2.4); SODIUM 140 MMOL/L (135-145); TOTAL CARBON DIOXIDE 27.3 MMOL/L (24-32); eCRCL 64 ML/MIN; eGFR 81 ML/MIN
--- NOTE | 2024-11-25 02:46 | RADIOLOGY REPORT ---
Clinical History fall Comparison None Technique: All CT scans at this medical facility are performed using dose modulation techniques as appropriate t o a performed exam including the following: Automated exposure control was utilized; adjustment of th e mA and/or kV according to patient size; and use of iterative reconstruction technique. All CT studies are reported to the Dose Index Registry of the [employer]. Without Contrast Radiation Dose: CTDI (mGy): 19.44; DLP (mGy-cm): 391.91 LAUREN BINGHAM, [id number] FINDINGS: Osseous structures are anatomically aligned, with no evidence of fracture, dislocation, or subluxatio n. Normal bony mineralization is noted. Disc space narrowing is identified at C3-4 and C5-6. Right facet hypertrophy at C5-6 is seen. There is moderate to severe right neural foraminal narrowing at C5-6, and mild bilateral neuroforaminal narrowing at C3-4. The spinal cord is not well visualized. If concern for trauma or degenerative change persists, MRI may be considered for further detailed yuliet luation. Visualized portions of the airway and mastoid air spaces are unremarkable. Visualized portions of the lung apices are clear. IMPRESSION: No acute fracture. Degenerative disc disease with neural foraminal narrowing as described. This report was electronically signed by Leonard Rice MD on 11/25/2024 2:42:45 AM.
[2024-11-25 02:48] LABS: BILIRUBIN,DIRECT < 0.1 MG/DL (0-0.3)
[2024-11-25 02:53] LABS: PLATELET ESTIMATE INCREASED
[2024-11-25 02:54] LABS: HYPOCHROMASIA 1+
[2024-11-25 02:55] LABS: ANISOCYTOSIS 3+; ELLIPTOCYTES 1+; MICROCYTOSIS 1+; SCHISTOCYTES FEW; TARGET CELLS FEW; TEAR DROP CELLS FEW
[2024-11-25] MEDS: TETanus/Pertussis (Acell)/Diphther VAC/PF (Tdap-Adult) 0.5ml syringe IMVAC ONE (02:56)
[2024-11-25] MEDS: LIDOcaine 1% W/epiNEPHrine 1:100,000 20ml vial IJ ONE (02:57)
[2024-11-25 03:21] LABS: BILIRUBIN,URINE NEGATIVE (Neg); COLOR,URINE STRAW (Yellow); GLUCOSE, URINE NEGATIVE (Neg); KETONES,URINE NEGATIVE (Neg); LEUKOCYTE ESTERASE ,URINE NEGATIVE (Neg); NITRITES, URINE POSITIVE (Neg); OCCULT BLOOD,URINE MODERATE (Neg); PROTEIN,URINE NEGATIVE (Neg); UROBILINOGEN,URINE 0.2 E.U/dL (0.2-1.0)
[2024-11-25 03:29] LABS: CLARITY,URINE SLIGHTLY CLOUDY (Clear); UA COLLECTION TYPE VOIDED
[2024-11-25 03:30] LABS: BACTERIA,URINE 4+ /HPF (Neg); MUCUS STRANDS NONE SEEN /LPF (Neg); SQUAMOUS EPITHELIAL CELL,UR NONE SEEN /LPF (FEW); WBC,URINE 0-4 /HPF (0-4)
[2024-11-25] MEDS ORDERED: DOXY-1 PO (03:47)
[2024-11-25] MEDS: DOXYCYCLINE 100MG CAPSULE PO STA (03:51)
[2024-11-25 04:10] VITALS: BP 120/87; PULSE 87; RESP 16; TEMP 97.5; O2SAT 100
--- NOTE | 2024-11-25 06:20 | ELECTROCARDIOGRAPH REPORT ---
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 Anna Mir Measurements Intervals [place] Rate: 84 P: 44 MD: 197 QRS: 15 QRSD: 88 T: 57 QT: 382 QTc: 452 Interpretive Statements Sinus rhythm Low voltage, precordial leads Electronically Signed On 11-25-2024 18:19:[address] Anna Mir Please click the below link to view image of tracing.
[2024-11-25] MEDS ORDERED: HYDR-3686 PO (22:55)
== END 2024-11-25 04:41 | disposition home or self-care (01) ==
LOC: ER 23:10
DX: S01.81XA Laceration without foreign body of other part of head, initial encounter (principal); F10.129 Alcohol abuse with intoxication, unspecified; I10 Essential (primary) hypertension; I25.10 Atherosclerotic heart disease of native coronary artery without angina pectoris; Z85.41 Personal history of malignant neoplasm of cervix uteri; Z88.0 Allergy status to penicillin; Z98.890 Other specified postprocedural states; W19.XXXA Unspecified fall, initial encounter; Y93.01 Activity, walking, marching and hiking; Y92.480 Sidewalk as the place of occurrence of the external cause; Y99.8 Other external cause status; Y90.9 Presence of alcohol in blood, level not specified
CPT/HCPCS: 12013; 36415; 70450; 72125; 80048; 80076; 80320; 81001; 83735; 84484; 85008; 85025; 87077; 87088; 87186; 90471; 90715; 93005; 99285

== ENCOUNTER 2024-11-25 21:48 | Emergency (ER) | payer BC, MEDICAID ==
[~2024-11-25] VITALS: Ht 157.5 cm; Wt 61.0 kg
[~2024-11-25 21:48] MED LIST changes: +DOXY-1 PO
[2024-11-25 22:03] VITALS: BP 151/100; PULSE 98; RESP 15; O2SAT 98
--- NOTE | 2024-11-25 22:43 | Physician Documentation ---
History of Present Illness ~ Chief Complaint: Anxiety Stated Complaint: PANIC ATTACK Time Seen by MD: 22:39 Primary Medical Doctor: ADA AQUINO HPI 59-year-old female who was recently seen in the ED for a fall presents today with a complaint of anxiety. She also states she has been drinking alcohol this evening. She says she was drinking alcohol to alleviate her anxiety. Medication Reconciliation Allergies: Coded Allergies: Penicillins (Verified Allergy, Unknown, hives, 11/25/24) HAS RECIEVED ROCEPHIN 12/2023 Scheduled Doxycycline Hyclate (Doxycycline Hyclate), 1 CAP PO Q12H Hydroxyzine Hcl* (Atarax*), 1 TAB PO Q12H Scheduled PRN Chlordiazepoxide Hcl (Librium), 2 CAP PO Q6H PRN for alcohol withdrawal Miscellaneous Medications Home Med List (No Home Medications), (Reported) Past Medical History Past Medical History: Seizures, Hypertension, Pneumonia, *GI/HEPATOBILIARY*, GERD, GI Bleed, Pancreatitis, Extremity Fracture, Cellulitis, Cervical Cancer/Dysplasia, Anxiety, Depression Past Surgical History: abdominal surgery, other Other Past Surgical History: Colon resection, hernia repair, colostomy Patient History: (CAD) Coronary arteriosclerosis FATHER, Name: Franki Adam, Born [birth year], Age: 91, Onset:76 (Cancer) Malignant carcinoid tumor MOTHER, Name: Tree Adam (Untreated HTN which lead to renal failure and CHF.Renal Cancer), , Age: 76, Cause: Renal failure (ARF), acute on chronic, Onset:50's - 60 Paternal Grandmother, , Cause: Colon cancer, Onset:60 years & older ([place]) Myocardial infarction FATHER, Name: Franki Adam, Born [birth year], Age: 91, Onset:76 No Family History of: (CABG) Coronary artery bypass grafting (CHF) Congestive heart failure (COPD) Chronic obstructive lung disease (CVA) Cerebrovascular accident (DM Type 2) Diabetes mellitus type 2 (DM Type1) Diabetes mellitus type 1 (PVD) Peripheral vascular disease (TIA) Transient ischemic attack Alzheimer's disease Aortic aneurysm Asthma Cardiac arrest Hypercholesterolemia Drug Use: none Review of Systems All Other Systems at this time: Reviewed and Negative ROS As stated above in the HPI, otherwise all systems are reviewed and negative. Physical Exam Vital Signs: Temperature: 96.8, Source: Temporal, Heart Rate: 98, Respiratory Rate: 15, BP: 151/100, Pulse Oximetry: 98, Weight: 61.000 Physical Exam General: Alert, no apparent distress. HEENT: PERRL, EOMI, no injection, moist mucous membranes. Neck: Full range of motion. Respiratory: Lungs clear, no respiratory distress. Chest: No accessory muscle use. Cardiovascular: Regular rate and rhythm, no murmurs. Gastrointestinal: Soft, nontender, nondistended. Bowels sounds present. Extremities: Normal range of motion, no deformity. Neurologic: Oriented x4. Psychiatric: Normal mood and affect. Skin: Normal color, warm and dry. No edema, no ecchymosis. Progress Results/Orders Results/Orders Completed Orders - JOE VU NP Hydroxyzine Tablet (Atarax Tablet) (11/25/24 22:40) Hydroxyzine Tablet (Atarax Tablet) (11/25/24 22:55) Medications Received in ER Medications (Trade) Dose Ordered Sig/Van Route PRN Reason Start Time Stop Time Status Last Admin Dose Admin (Atarax tablet) 25 mg ONCE ONCE PO 11/25/24 22:40 11/25/24 22:41 DC 11/25/24 22:49 25 MG Vital Signs 11/25/24 11/25/24 22:03 22:55 Temp 96.8 96.8 Pulse 98 Resp 15 B/P (MAP) 151/100 Pulse Ox 98 Medical Decision Making Findings Patient presents a mildly intoxicated and I do not feel comfortable prescribing benzos or provided in the even in the ED. I did offer Atarax patient agreed.. She denies any HI or SI meets Differential Dx:Considerations: Include: Alcohol abuse, Anxiety, Bipolar disorder, Conversion disorder, Depression, Encephaloathy, Homicidal, Panic disorder, Personality disorder, Schizophrenia, Substance abuse, Suicidal, Other Departure Impression: Primary Impression: Anxiety Additional Impression: Alcohol abuse Condition: Stable Discharge Instructions: Panic Attack Referrals: NO PRIMARY CARE PROVIDER (PCP) Prescriptions Hydroxyzine Hcl* (Atarax*) 25 Mg Tablet 1 TAB PO Q12H for anxiety for 30 Days, #60 TAB Prov: JOE VU NP 11/25/24 Education Educated: Patient Signature Scribe Signature: t Attestation: The note accurately reflects work and decisions made by me.Joe Vu - MILITARY PROFESSIONAL 11/25/24 23:39 JOE VU NP Nov 25, 2024 22:43
[2024-11-25] MEDS: hydrOXYzine 25 MG tablet PO ONE (22:49)
[2024-11-25 22:55] VITALS: TEMP 96.8
[2024-11-25] MEDS ORDERED: HYDR-3686 PO (22:55)
[2024-11-25] MEDS ORDERED: hydrOXYzine 25 MG tablet PO ONE (22:55)
== END 2024-11-25 23:09 | disposition home or self-care (01) ==
LOC: ER 21:49
DX: F41.9 Anxiety disorder, unspecified (principal); F10.10 Alcohol abuse, uncomplicated; I10 Essential (primary) hypertension; I25.10 Atherosclerotic heart disease of native coronary artery without angina pectoris; F32.A Depression, unspecified; K21.9 Gastro-esophageal reflux disease without esophagitis; Z85.41 Personal history of malignant neoplasm of cervix uteri; Z88.0 Allergy status to penicillin; Z88.1 Allergy status to other antibiotic agents; Z98.890 Other specified postprocedural states; Y90.9 Presence of alcohol in blood, level not specified
CPT/HCPCS: 99283; Q0177

== ENCOUNTER 2024-11-26 02:14 | Emergency (ER) | payer BC, MEDICAID ==
[~2024-11-26] VITALS: Ht 157.5 cm; Wt 61.0 kg
[~2024-11-26 02:14] MED LIST changes: +HYDR-3686 PO
[2024-11-26 02:17] VITALS: BP 147/99; PULSE 87; RESP 15; TEMP 96.4; O2SAT 98
--- NOTE | 2024-11-26 05:06 | Physician Documentation ---
History of Present Illness ~ Chief Complaint: Sore Throat Stated Complaint: SORE THROAT Time Seen by MD: 05:05 OK to notify your PCP?: Yes Primary Medical Doctor: ADA AQUINO Source: patient, RN/MD, EMS, RN notes reviewed, EMS notes reviewed, old records Mode of Arrival: EMS Exam Limitations: no limitations HPI 59-year-old female, who was well known to this ED and had sutures placed by myself over her right eyebrow last night, returns to the ED complaining of sore throat, which she has been seen for twice in the last few days. She is also requesting sutures be removed, even though she has been told she must wait another week or so. Additionally she reports feeling confused and states she does not know why she was in the ER, or how she got here. She was a history of heavy alcohol abuse. Medication Reconciliation Allergies: Coded Allergies: Penicillins (Verified Allergy, Unknown, hives, 11/26/24) HAS RECIEVED ROCEPHIN 12/2023 Scheduled Doxycycline Hyclate (Doxycycline Hyclate), 1 CAP PO Q12H Hydroxyzine Hcl* (Atarax*), 1 TAB PO Q12H Scheduled PRN Chlordiazepoxide Hcl (Librium), 2 CAP PO Q6H PRN for alcohol withdrawal Miscellaneous Medications Home Med List (No Home Medications), (Reported) Past Medical History Past Medical History: Seizures, Hypertension, Pneumonia, *GI/HEPATOBILIARY*, GERD, GI Bleed, Pancreatitis, Extremity Fracture, Cellulitis, Cervical Cancer/Dysplasia, Anxiety, Depression Past Surgical History: abdominal surgery, other Other Past Surgical History: Colon resection, hernia repair, colostomy Patient History: (CAD) Coronary arteriosclerosis FATHER, Name: Franki Adam, Born [birth year], Age: 91, Onset:76 (Cancer) Malignant carcinoid tumor MOTHER, Name: Tree Adam (Untreated HTN which lead to renal failure and CHF.Renal Cancer), , Age: 76, Cause: Renal failure (ARF), acute on chronic, Onset:50's - 60 Paternal Grandmother, , Cause: Colon cancer, Onset:60 years & older ([place]) Myocardial infarction FATHER, Name: Franki Adam, Born [birth year], Age: 91, Onset:76 No Family History of: (CABG) Coronary artery bypass grafting (CHF) Congestive heart failure (COPD) Chronic obstructive lung disease (CVA) Cerebrovascular accident (DM Type 2) Diabetes mellitus type 2 (DM Type1) Diabetes mellitus type 1 (PVD) Peripheral vascular disease (TIA) Transient ischemic attack Alzheimer's disease Aortic aneurysm Asthma Cardiac arrest Hypercholesterolemia Drug Use: none Review of Systems All Other Systems at this time: Reviewed and Negative ROS As stated above in the HPI, otherwise all systems are reviewed and negative. Physical Exam Vital Signs: RN Vital Signs have been reviewed: Yes, Temperature: 96.4, Source: Temporal, Heart Rate: 87, Respiratory Rate: 15, BP: 147/99, Pulse Oximetry: 98, Weight: 61.000 Pulse Oximetry Reflects: adequate oxygenation Physical Exam General: The patient is well developed, well nourished, nontoxic appearing and is in no acute distress. Skin: See below. Otherwise: [place], warm and dry with no rashes. HEENT: Swelling and echymosis of right upper and lower eyelids. Sutured laceration over right eyebrow, healing well. Head was normocephalic. Chest: Clear to auscultation bilaterally without wheezes, rales or rhonchi. No accessory muscle use. Heart: Rate regular and rhythmic. S1, S2. No murmurs. Palpation of the chest wall was normal. Extremities: No cyanosis, clubbing or edema. The patient moves all extremities. Pulses were equal and symmetric. Neurologic: Motor and sensation grossly intact. Psychologic: Normal mood and affect. No agitation. Progress Results/Orders Reviewed/noted all lab results: Yes Results/Orders Vital Signs 11/26/24 02:17 Temp 96.4 Pulse 87 Resp 15 B/P (MAP) 147/99 Pulse Ox 98 Re-Evaluation Re-Evaluation : Re-Evaluation: Unchanged Progress Patient was seen and examined. Patient was given reassurance. Patient was been seen multiple times. She has soft tissue swelling and a black eye from her prior trauma. Wound is healing well. Patient has been drinking needing a place to stay. However she has no medical emergency beyond her medical screening exam was given reassurance and discharged back to the [facility]. She has no paperwork as far as her prior visits and was unaware of when her sutures need to be removed so she was given that information again and encouraged her to follow up at the [facility] were the hope then can see her to possible days out of the week for medical needs. As well as suture removal. Medical Decision Making Additional info obtained from: old records, other Departure Time of Disposition: 05:29 Disposition: 01 HOME / SELF CARE / HOMELESS Impression: Primary Impression: Visit for wound check Additional Impression: General medical exam Condition: Stable Discharge Instructions: General Discharge Instructions Additional Instructions: Return in seven days for suture removal. Watch for signs of infection such as redness, swelling, pus discharge, or fever and return to the ER if you have any of these. Education Educated: Patient Educated regarding: diagnosis, treatment, need for follow up Signature Scribe Signature: Scribed for Martin Buchanan MD by Nahum Foster . 11/26/24 05:29 Attestation: The note accurately reflects work and decisions made by me.Martin Buchanan MD 11/26/24 05:06 MARTIN BUCHANAN MD November 26, 2024 05:06 NAHUM STRATTON November 26, 2024 05:31
== END 2024-11-26 05:39 | disposition home or self-care (01) ==
LOC: ER 02:15
DX: S01.111D Laceration without foreign body of right eyelid and periocular area, subsequent encounter (principal); J02.9 Acute pharyngitis, unspecified; K21.9 Gastro-esophageal reflux disease without esophagitis; I10 Essential (primary) hypertension; F41.9 Anxiety disorder, unspecified; F32.A Depression, unspecified; I25.10 Atherosclerotic heart disease of native coronary artery without angina pectoris; Z85.41 Personal history of malignant neoplasm of cervix uteri; Z88.0 Allergy status to penicillin; Z98.890 Other specified postprocedural states; X58.XXXD Exposure to other specified factors, subsequent encounter
CPT/HCPCS: 99281; 99283

== ENCOUNTER 2024-11-26 12:45 | Emergency (ER) | payer BC, MEDICAID ==
[~2024-11-26] VITALS: Ht 157.5 cm; Wt 57.7 kg
[2024-11-26 12:53] VITALS: BP 129/86; PULSE 93; RESP 16; TEMP 98.9; O2SAT 95
== END 2024-11-26 15:23 | disposition left against medical advice (07) ==
LOC: ER 12:46
DX: R41.0 Disorientation, unspecified (principal); Z88.0 Allergy status to penicillin; Z53.21 Procedure and treatment not carried out due to patient leaving prior to being seen by health care provider

== ENCOUNTER 2024-11-26 20:50 | Emergency (ER) | payer BC, MEDICAID ==
[~2024-11-26] VITALS: Ht 157.5 cm; Wt 61.0 kg
[2024-11-26 20:53] VITALS: BP 132/89; PULSE 88; RESP 15; O2SAT 95
--- NOTE | 2024-11-26 22:55 | Physician Documentation ---
History of Present Illness ~ General Chief Complaint: General Stated Complaint: CONFUSED Time Seen by MD: 21:23 Primary Medical Doctor: ADA AQUINO History of Present Illness Initial Comments Patient is seen today and when asked why she is here she states she is simply just resting and has no current medical complaints at this time. Patient denies any chest pain or shortness of breath or abdominal pain or nausea, vomiting, diarrhea. Medication Reconciliation Allergies: Coded Allergies: Penicillins (Verified Allergy, Unknown, hives, 11/26/24) HAS RECIEVED ROCEPHIN 12/2023 Scheduled Doxycycline Hyclate (Doxycycline Hyclate), 1 CAP PO Q12H Hydroxyzine Hcl* (Atarax*), 1 TAB PO Q12H Scheduled PRN Chlordiazepoxide Hcl (Librium), 2 CAP PO Q6H PRN for alcohol withdrawal Miscellaneous Medications Home Med List (No Home Medications), (Reported) Past Medical History Past Medical History: Seizures, Hypertension, Pneumonia, *GI/HEPATOBILIARY*, GERD, GI Bleed, Pancreatitis, Extremity Fracture, Cellulitis, Cervical Cancer/Dysplasia, Anxiety, Depression Past Surgical History: abdominal surgery, other Other Past Surgical History: Colon resection, hernia repair, colostomy Patient History: (CAD) Coronary arteriosclerosis FATHER, Name: Franki Adam, Born [birth year], Age: 91, Onset:76 (Cancer) Malignant carcinoid tumor MOTHER, Name: Tree Adam (Untreated HTN which lead to renal failure and CHF.Renal Cancer), , Age: 76, Cause: Renal failure (ARF), acute on chronic, Onset:50's - 60 Paternal Grandmother, , Cause: Colon cancer, Onset:60 years & older ([place]) Myocardial infarction FATHER, Name: Franki Adam, Born [birth year], Age: 91, Onset:76 No Family History of: (CABG) Coronary artery bypass grafting (CHF) Congestive heart failure (COPD) Chronic obstructive lung disease (CVA) Cerebrovascular accident (DM Type 2) Diabetes mellitus type 2 (DM Type1) Diabetes mellitus type 1 (PVD) Peripheral vascular disease (TIA) Transient ischemic attack Alzheimer's disease Aortic aneurysm Asthma Cardiac arrest Hypercholesterolemia Drug Use: none Review of Systems Constitutional: Denies: chills, fever, weakness Eyes: Denies: pain, blurred vision ENT: Denies: ear pain, nose pain, throat pain, mouth pain Respiratory: Denies: cough, shortness of breath Cardiovascular: Denies: chest pain, palpitations Gastrointestinal: Denies: abdominal pain, nausea, vomiting Genitourinary: Denies: burning, dysuria Female Genitalia: Denies: vaginal discharge, pelvic pain Neurological: Denies: headache, dizziness Musculoskeletal: Denies: pain, swelling Integumentary: Denies: rash, lesions Allergic/Immunologic: Denies: hives, itching Hematologic/Lymphatic: Denies: no symptoms reported Psychiatric: Denies: depression, anxiety Physical Exam Physical Exam Vital Signs: Temperature: 98.6, Source: Temporal, Heart Rate: 88, Respiratory Rate: 15, BP: 132/89, Pulse Oximetry: 95, Weight: 61.000 Physical Exam General: Awake and Alert, no acute distress. HEENT: Conjunctiva pink, Sclera clear, Mucus Membranes moist. Neck: Supple without masses and tenderness. Resp: Unlabored. Lungs clear to auscultation bilaterally. Heart: Regular Rate and rhythm, normal S1 and S2 without murmur, rub or gallop. Abdomen: Soft and non tender no organomegaly Extremities: No cyanosis,clubbing or edema. Skin: Warm and Dry. Progress Results/Orders Results/Orders Vital Signs 11/26/24 20:53 Temp 98.6 Pulse 88 Resp 15 B/P (MAP) 132/89 Pulse Ox 95 Medical Decision Making Findings Patient is seen today and when asked why she is here she states she is simply just resting and has no current medical complaints at this time. Patient denies any chest pain or shortness of breath or abdominal pain or nausea, vomiting, diarrhea. Patient will follow up with primary care in 2-5 days if no better as needed sooner. She will return to ED with any worsening, concerning or changing symptoms. Patient will continue medications as currently prescribed. Departure Disposition: HOME / SELF CARE / HOMELESS Impression: Primary Impression: General medical exam Condition: Improved Additional Instructions: Patient will follow up with primary care in 2-5 days if no better as needed sooner. She will return to ED with any worsening, concerning or changing symptoms. Patient will continue medications as currently prescribed. Referrals: NO PRIMARY CARE PROVIDER (PCP) Signature Scribe Signature: No scribe Attestation: No scribe JOSE WHITING PAC November 26, 2024 22:55
[2024-11-26 22:56] VITALS: TEMP 98.6
== END 2024-11-26 23:00 | disposition home or self-care (01) ==
LOC: ER 20:51
DX: R41.0 Disorientation, unspecified (principal); K21.9 Gastro-esophageal reflux disease without esophagitis; F41.9 Anxiety disorder, unspecified; F32.A Depression, unspecified; I10 Essential (primary) hypertension; I25.10 Atherosclerotic heart disease of native coronary artery without angina pectoris; Z85.41 Personal history of malignant neoplasm of cervix uteri; Z88.0 Allergy status to penicillin; Z98.890 Other specified postprocedural states
CPT/HCPCS: 99284

== ENCOUNTER 2024-11-27 19:49 | Emergency (ER) | payer BC, MEDICAID ==
[~2024-11-27] VITALS: Ht 167.6 cm; Wt 59.0 kg
--- NOTE | 2024-11-27 21:35 | Physician Documentation ---
History of Present Illness General Chief Complaint: See Chief Complaint Stated Complaint: CONFUSION Time Seen by MD: 21:21 Primary Medical Doctor: ADA AQUINO History of Present Illness Initial Comments Zeina is a 59-year-old female who is on sheltered and well known to the emergency department. She denies recent alcohol or drug use. Brought in today by ambulance from the [facility] without specific complaint other than dyspepsia. She has had no nausea, vomiting, hematemesis or hemoptysis. Patient recently seen in the emergency department and had sutures placed in the right adventism forehead. Patient was requesting medication for dyspepsia today. She reports that she has a medications at the [facility] but at times she reports she was unable to obt ain them. She has a steady gait and she was while oriented. She is in no acute distress. She was interested in transitioning out of the [facility] to supervised living quarters. Medication Reconciliation Allergies: Coded Allergies: Penicillins (Verified Allergy, Unknown, hives, 11/27/24) HAS RECIEVED ROCEPHIN 12/2023 Scheduled Doxycycline Hyclate (Doxycycline Hyclate), 1 CAP PO Q12H Hydroxyzine Hcl* (Atarax*), 1 TAB PO Q12H Scheduled PRN Chlordiazepoxide Hcl (Librium), 2 CAP PO Q6H PRN for alcohol withdrawal Miscellaneous Medications Home Med List (No Home Medications), (Reported) Past Medical History Past Medical History: Seizures, Hypertension, Pneumonia, *GI/HEPATOBILIARY*, GERD, GI Bleed, Pancreatitis, Extremity Fracture, Cellulitis, Cervical Cancer/Dysplasia, Anxiety, Depression Past Surgical History: abdominal surgery, other Other Past Surgical History: Colon resection, hernia repair, colostomy Drug Use: none Physical Exam Physical Exam Vital Signs: RN Vital Signs have been reviewed: Yes, Temperature: 96.9, Source: Temporal, Heart Rate: 82, Respiratory Rate: 16, BP: 147/90, Pulse Oximetry: 99, Weight: 59.000 General Appearance: alert, WD/WN, no apparent distress Head: normal inspection Head Sutures clean dry and intact to the right temporal Face: normal inspection Pupils/EOM/Fundus: PERRLA Nose: normal inspection Neck: No: meningeal signs Respiratory: no respiratory distress Chest: no accessory muscle use Cardiovascular: regular rate, rhythm Extremities: normal range of motion Neurologic: oriented x4 Motor / Sensory: no motor deficit, no sensory deficit Psychiatric: normal mood/affect, anxiety Skin: normal color, warm/dry; No: rash Progress Results/Orders Results/Orders Completed Orders - GEOFFREY DEL CASTILLO Mag & Alum Hydrox/Simeth Susp (Maalox Or (11/27/24 21:45) Vital Signs 11/27/24 11/27/24 20:01 21:49 Temp 96.9 96.9 Pulse 82 77 Resp 16 14 B/P (MAP) 147/90 135/75 Pulse Ox 99 99 Medical Decision Making Differential Diagnosis Provided patient with Maalox for a complaint of acute on chronic dyspepsia and transportation back to the [facility]. Patient reports she feels better. Discussed with her the need to approach [facility] staff to begin the procedures for transitioning out admission to supervised living quarters. Additionally pr ovided patient with handout that shows the [facility] other supportive resources to include [facility], [facility] in the [facility]. Patient was wound to the right scalp continues to heal well without signs of infection. She understands to return in the emergency department in five days to have sutures removed. She was provided transportation back to the [facility]. Departure Disposition: HOME / SELF CARE / HOMELESS Impression: Primary Impression: GERD (gastroesophageal reflux disease) Qualified Codes: K21.9 - Gastro-esophageal reflux disease without esophagitis Condition: Improved Additional Instructions: Please continue with your current medication and try and abstain from excessive Alcohol use. Referrals: NO PRIMARY CARE PROVIDER (PCP) Education Educated: Patient Educated regarding: diagnosis Signature Scribe Signature: . Attestation: . GEOFFREY DEL CASTILLO November 27, 2024 21:35
[2024-11-27 21:49] VITALS: BP 135/75; PULSE 77; RESP 14; TEMP 96.9; O2SAT 99
[2024-11-27] MEDS: mag hydrox/Alum hydrox/simeth 30ml oral suspension PO ONE (21:59)
== END 2024-11-27 22:04 | disposition home or self-care (01) ==
LOC: ER 19:50
DX: K21.9 Gastro-esophageal reflux disease without esophagitis (principal); I10 Essential (primary) hypertension; F41.9 Anxiety disorder, unspecified; F32.A Depression, unspecified; Z85.41 Personal history of malignant neoplasm of cervix uteri; Z88.0 Allergy status to penicillin; Z98.890 Other specified postprocedural states; Z79.899 Other long term (current) drug therapy
CPT/HCPCS: 99283

== ENCOUNTER 2024-11-28 16:21 | Emergency (ER) | payer BC, MEDICAID ==
[~2024-11-28] VITALS: Ht 154.9 cm; Wt 63.6 kg
[2024-11-28 16:30] VITALS: TEMP 97.3
--- NOTE | 2024-11-28 17:14 | ELECTROCARDIOGRAPH REPORT ---
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 Martin Buchanan Measurements Intervals [place] Rate: 78 P: 74 [place]: 178 QRS: 55 QRSD: 83 T: 60 QT: 421 QTc: 480 Interpretive Statements Sinus rhythm Electronically Signed On 11-28-2024 18:45:[address] Martin Buchanan Please click the below link to view image of tracing.
--- NOTE | 2024-11-28 18:33 | Physician Documentation ---
History of Present Illness General Chief Complaint: Abdominal Pain Stated Complaint: PANIC ATTACK Time Seen by MD: 18:05 Primary Medical Doctor: [facility] History of Present Illness Initial Comments 59-year-old female well known to the emergency department re presents to the emergency department today in hopes to talking to social work about transitioning from the [facility] to some supervised housing. Reports that she has eaten today and he is requesting medication for her dyspepsia also feeling just a slight anxious and this isn't certain exactly where her hydroxyzine is. No SI no HI reported. She has has sutures in the right temporal that are without signs of infection. Those are to be removed in three days from today. Medication Reconciliation Allergies: Coded Allergies: Penicillins (Verified Allergy, Unknown, hives, 11/27/24) HAS RECIEVED ROCEPHIN 12/2023 Scheduled Doxycycline Hyclate (Doxycycline Hyclate), 1 CAP PO Q12H Hydroxyzine Hcl* (Atarax*), 1 TAB PO Q12H Scheduled PRN Chlordiazepoxide Hcl (Librium), 2 CAP PO Q6H PRN for alcohol withdrawal Miscellaneous Medications Home Med List (No Home Medications), (Reported) Past Medical History Past Medical History: Seizures, Hypertension, Pneumonia, *GI/HEPATOBILIARY*, GERD, GI Bleed, Pancreatitis, Extremity Fracture, Cellulitis, Cervical Cancer/Dysplasia, Anxiety, Depression Past Surgical History: abdominal surgery, other Other Past Surgical History: Colon resection, hernia repair, colostomy Drug Use: none Review of Systems All Other Systems at this time: Reviewed and Negative Constitutional: Denies: fever, chills RESP: Denies: short of breath CV: Denies: chest pain, palpitations Neuro: Denies: seizures Integ: Denies: rash, itching Physical Exam Physical Exam Vital Signs: Temperature: 97.3, Heart Rate: 80, Respiratory Rate: 14, BP: 145 /88, Pulse Oximetry: 98, Weight: 63.600 General Appearance: alert, WD/WN, mild distress Head: normal inspection Face: normal inspection Pupils/EOM/Fundus: PERRLA Oropharynx: normal inspection Neck: No: meningeal signs Respiratory: no respiratory distress Extremities: normal range of motion Neurologic: oriented x4, defective cigarette slitter II-XII nml as tested Motor / Sensory: no motor deficit, no sensory deficit Psychiatric: normal mood/affect, anxiety Skin: normal color, warm/dry; No: rash Progress Results/Orders Results/Orders Orders - GEOFFREY DEL CASTILLO PAC Mag & Alum Hydrox/Simeth Susp (Maalox Or (11/28/24 18:25) Hydroxyzine Tablet (Atarax Tablet) (11/28/24 18:25) Vital Signs 11/28/24 16:30 Temp 97.3 Pulse 80 Resp 14 B/P (MAP) 145/88 Pulse Ox 98 Medical Decision Making Differential Diagnosis Then has a 59-year-old female well known to in the emergency department who is looking to transition to some skilled facility. She unfortunately he has not been utilizing the services at the [facility] so I will re educate her and give her handout. Tonight in the emergency department she will receive some hydroxyzine and some Maalox. No other acute emergencies it is. T is well conversational while oriented. Denies any recent alcohol use. Departure Disposition: HOME / SELF CARE / HOMELESS Impression: Primary Impression: Dyspepsia Condition: Improved Additional Instructions: Please return to the emergency department on Saturday for suture removal re- evaluation dyspepsia and to speak with social work regarding placement in the supervised facility. In the interim please apply topical bacitracin twice daily. Return to the emergency department as needed. Thank you for visiting [facility]. Referrals: NO PRIMARY CARE PROVIDER (PCP) Education Educated: Patient Educated regarding: diagnosis, treatment Signature Scribe Signature: . Attestation: . GEOFFREY DEL CASTILLO November 28, 2024 18:33
[2024-11-28] MEDS: mag hydrox/Alum hydrox/simeth 30ml oral suspension PO ONE (18:46)
[2024-11-28] MEDS: hydrOXYzine 25 MG tablet PO ONE (18:46)
[2024-11-28 18:56] VITALS: BP 146/81; PULSE 86; RESP 18; O2SAT 98
== END 2024-11-28 18:58 | disposition home or self-care (01) ==
LOC: ER 16:22
DX: R10.13 Epigastric pain (principal); F41.9 Anxiety disorder, unspecified; I10 Essential (primary) hypertension; F32.A Depression, unspecified; Z88.0 Allergy status to penicillin; Z88.1 Allergy status to other antibiotic agents; Z98.890 Other specified postprocedural states
CPT/HCPCS: 93005; 99283; Q0177

== ENCOUNTER 2024-12-05 21:11 | Emergency (ER) | payer BC, MEDICAID ==
[~2024-12-05] VITALS: Ht 157.5 cm; Wt 59.1 kg
[~2024-12-05 21:11] MED LIST changes: -DOXY-1 PO
--- NOTE | 2024-12-05 21:42 | ELECTROCARDIOGRAPH REPORT ---
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 Tenisha Fernandze Measurements Intervals [place] Rate: 87 P: 46 [place]: 181 QRS: 30 QRSD: 84 T: 59 QT: 379 QTc: 456 Interpretive Statements Sinus rhythm Low voltage, precordial leads Electronically Signed On 12-06-2024 13:05:[address] Tenisha Fernandez Please click the below link to view image of tracing.
[2024-12-05 22:16] LABS: BASOPHILS % (AUTO) 0.6 % (0-1); EOSINOPHILS # (AUTO) 0.1 X10'3 (0-0.9); HEMATOCRIT 27.8 % (35.0-45.0); HEMOGLOBIN 8.8 g/dl (12.0-16.0); LYMPHOCYTES # (AUTO) 0.9 X10'3 (1.1-4.8); LYMPHOCYTES % (AUTO) 24.3 % (21-51); MEAN CORPUSCULAR HEMOGLOBIN 23.8 PG (27.0-31.0); MEAN CORPUSCULAR HGB CONC 31.6 g/dL (33.0-36.5); MEAN CORPUSCULAR VOLUME 75.2 FL (78-98); MEAN PLATELET VOLUME 6.6 FL (7.4-10.4); MONOCYTES # (AUTO) 0.5 X10'3 (0-0.9); MONOCYTES % (AUTO) 14.4 % (2-12); NEUTROPHILS # (AUTO) 2.2 X10'3 (1.8-7.7); NEUTROPHILS % (AUTO) 58.7 % (42-75); PLATELET COUNT 292 X10'3 (140-440); RED BLOOD COUNT 3.69 X10'6 (4.20-5.60); RED CELL DISTRIBUTION WIDTH 21.8 % (11.5-14.5); WHITE BLOOD COUNT 3.8 X10'3 (4.5-11.0)
[2024-12-05 22:21] LABS: BILIRUBIN,URINE NEGATIVE (Neg); CLARITY,URINE CLEAR (Clear); COLOR,URINE YELLOW (Yellow); GLUCOSE, URINE NEGATIVE (Neg); KETONES,URINE NEGATIVE (Neg); LEUKOCYTE ESTERASE ,URINE NEGATIVE (Neg); NITRITES, URINE POSITIVE (Neg); OCCULT BLOOD,URINE MODERATE (Neg); PROTEIN,URINE NEGATIVE (Neg); UROBILINOGEN,URINE 0.2 E.U/dL (0.2-1.0)
[2024-12-05 22:26] LABS: UA COLLECTION TYPE VOIDED
[2024-12-05 22:30] LABS: BACTERIA,URINE 4+ /HPF (Neg); SQUAMOUS EPITHELIAL CELL,UR MANY /LPF (FEW); WBC,URINE 0-4 /HPF (0-4)
[2024-12-05 22:33] LABS: PLATELET ESTIMATE NORMAL
[2024-12-05 22:34] LABS: ANISOCYTOSIS 3+; MICROCYTOSIS 1+
[2024-12-05 22:40] LABS: ALBUMIN 2.8 G/DL (3.4-5.0); ANION GAP 13 (8-16); BLOOD UREA NITROGEN 15 MG/DL (7-18); CALCIUM 8.6 MG/DL (8.5-10.1); CHLORIDE 108 MMOL/L (99-107); CREATININE 0.79 MG/DL (0.40-0.90); GLUCOSE 83 MG/DL (70-104); POTASSIUM 3.8 MMOL/L (3.5-5.1); SODIUM 144 MMOL/L (135-145); TOTAL CARBON DIOXIDE 22.9 MMOL/L (24-32); eCRCL 59 ML/MIN; eGFR 74 ML/MIN
--- NOTE | 2024-12-05 22:48 | RADIOLOGY REPORT ---
Clinical History aloc Comparison PCXR on 08/19/2024, 2 images. Technique: One view Without Contrast LAUREN BINGHAM, [id number] FINDINGS: Left chest tubes are removed. Not a compression plate with multiple screws are again identified betty g the left proximal humerus. The aorta is within normal limits. The heart size is within normal [place] its. Left hemidiaphragm elevation seen, associated with mild left lung base atelectasis. There is n o pneumothorax. Osteopenia is again noted. No discrete osseous lesion is noted. IMPRESSION: Mild left hemidiaphragm elevation with left lung base atelectasis, stable in appearance. This report was electronically signed by Leonard Rice MD on 12/05/2024 10:45:13 PM.
--- NOTE | 2024-12-05 23:11 | Physician Documentation ---
History of Present Illness ~ Chief Complaint: ALOC Stated Complaint: PANIC ATTACK Time Seen by MD: 23:10 Primary Medical Doctor: [facility] Source: patient, EMS Mode of Arrival: EMS HPI Patient presents for confused episode. She does not recall what happened earlier. She states she had was drinking a bit. She currently has no complaints says that she stays at the [place] Medication Reconciliation Allergies: Coded Allergies: Penicillins (Verified Allergy, Unknown, hives, 12/05/24) HAS RECIEVED ROCEPHIN 12/2023 Scheduled Hydroxyzine Hcl* (Atarax*), 1 TAB PO Q12H Scheduled PRN Chlordiazepoxide Hcl (Librium), 2 CAP PO Q6H PRN for alcohol withdrawal Miscellaneous Medications Home Med List (No Home Medications), (Reported) Discontinued Medications Doxycycline Hyclate (Doxycycline Hyclate), 1 CAP PO Q12H Discontinued Reason: Auto Discontinued Past Medical History Past Medical History: Seizures, Hypertension, Pneumonia, *GI/HEPATOBILIARY*, GERD, GI Bleed, Pancreatitis, Extremity Fracture, Cellulitis, Cervical Cancer/Dysplasia, Anxiety, Depression Past Surgical History: abdominal surgery, other Other Past Surgical History: Colon resection, hernia repair, colostomy Patient History: (CAD) Coronary arteriosclerosis FATHER, Name: Franki Adam, Born [birth year], Age: 91, Onset:76 (Cancer) Malignant carcinoid tumor MOTHER, Name: Tree Adam (Untreated HTN which lead to renal failure and CHF.Renal Cancer), , Age: 76, Cause: Renal failure (ARF), acute on chronic, Onset:50's - 60 Paternal Grandmother, , Cause: Colon cancer, Onset:60 years & older ([place]) Myocardial infarction FATHER, Name: Franki Adam, Born [birth year], Age: 91, Onset:76 No Family History of: (CABG) Coronary artery bypass grafting (CHF) Congestive heart failure (COPD) Chronic obstructive lung disease (CVA) Cerebrovascular accident (DM Type 2) Diabetes mellitus type 2 (DM Type1) Diabetes mellitus type 1 (PVD) Peripheral vascular disease (TIA) Transient ischemic attack Alzheimer's disease Aortic aneurysm Asthma Cardiac arrest Hypercholesterolemia Drug Use: none Review of Systems All Other Systems at this time: Reviewed and Negative Constitutional: Denies: fever Physical Exam Vital Signs: Temperature: 97.8, Source: Oral, Heart Rate: 89, Respiratory Rate: 16, BP: 101/65, Pulse Oximetry: 88, Weight: 59.090 Oxygen Flow Rate: 0 Physical Exam Head atraumatic awake alert oriented Normal speech Neuro moving all extremities cranial nerves 2-12 intact normal gait Abdomen soft nontender Pulmonary clear to auscultation Progress Progress Note I independently interpreted labs WBC 3.8 down from 5.7 on November 25, 2024 Hemoglobin 8.8 down from 10.1 November 25, 2024 Urinalysis moderate occult blood positive nitrite negative leuk esterase many squames Results/Orders Reviewed/noted all lab results: Yes Results/Orders Orders - FADY REDDY MD Accucheck (12/05/24 21:32) Chest,Single View (12/05/24 21:32) Monitor (12/05/24 21:32) Saline Lock (12/05/24 21:32) Completed Orders - FADY REDDY MD Electrocardiogram (12/05/24 21:32) Cbc/Diff (12/05/24 21:32) Chest,Single View (12/05/24 21:32) BMP (12/05/24 21:32) Ua W/Microscopic, Cult If Ind (12/05/24 22:14) Vital Signs 12/05/24 12/05/24 21:14 21:28 Temp 97.8 Pulse 89 Resp 18 16 B/P (MAP) 101/65 Pulse Ox 88 O2 Flow Rate 0 Laboratory Tests Test 12/05/24 21:56 12/05/24 22:14 White Blood Count 3.8 L Red Blood Count 3.69 L Hemoglobin 8.8 L Hematocrit 27.8 L Mean Corpuscular Volume 75.2 L Mean Corpuscular Hemoglobin 23.8 L Mean Corpuscular Hemoglobin Concent 31.6 L Red Cell Distribution Width 21.8 H Platelet Count 292 Mean Platelet Volume 6.6 L Neutrophils (%) (Auto) 58.7 Lymphocytes (%) (Auto) 24.3 Monocytes (%) (Auto) 14.4 H Eosinophils (%) (Auto) 2.0 Basophils (%) (Auto) 0.6 Neutrophils # (Auto) 2.2 Lymphocytes # (Auto) 0.9 L Monocytes # (Auto) 0.5 Eosinophils # (Auto) 0.1 Basophils # (Auto) 0.0 CBC Comment Platelet Estimate Normal Red Blood Cell Morphology Perf Basophilic Stippling Anisocytosis 3+ Microcytosis 1+ Sodium Level 144 Potassium Level 3.8 Chloride Level 108 H Carbon Dioxide Level 22.9 L Anion Gap 13 Blood Urea Nitrogen 15 Creatinine 0.79 Estimated GFR/1.73 m2 74 BUN/Creatinine Ratio 19.0 Glucose Level 83 Glucometer 87 Calcium Level 8.6 Albumin 2.8 L Chemistry Comments Urine Specimen Description Voided Urine Color Yellow Urine Clarity Clear Urine pH 6.0 Urine Specific [place] 1.015 Urine Protein Negative Urine Glucose (UA) Negative Urine Ketones Negative Urine Occult Blood Moderate H Urine Nitrite Positive H Urine Bilirubin Negative Urine Urobilinogen 0.2 Urine Leukocyte Esterase Negative Urine RBC 3-10 Urine WBC 0-4 Urine Squamous Epithelial Cells Many Urine Bacteria 4+ Urine Culture Indicated Rejected for culture Volume Urine Centrifuged 10 ml Urine Comment Medical Decision Making Additional Information Alcohol intoxication, metabolic encephalopathy, Departure Disposition: HOME / SELF CARE / HOMELESS Impression: Primary Impression: Alcoholic intoxication Qualified Codes: F10.920 - Alcohol use, unspecified with intoxication, uncomplicated Additional Impression Text Patient presents for altered mental status. She is known alcoholic homeless recently had extensive evaluation including CT scan 2 weeks ago. I considered repeat CT head today but given her admission of alcohol use and clinical well appearance we will defer today Additional Instructions: Please follow up with your primary care physician return for any worsening of your symptoms Referrals: NO PRIMARY CARE PROVIDER (PCP) Signature Scribe Signature: shanna Attestation: FADY Schaefer MD December 05, 2024 23:11
[2024-12-06 00:03] VITALS: BP 136/80; PULSE 82; RESP 14; TEMP 97.8; O2SAT 99
== END 2024-12-06 00:16 | disposition home or self-care (01) ==
LOC: ER 21:12
DX: F10.129 Alcohol abuse with intoxication, unspecified (principal); K21.9 Gastro-esophageal reflux disease without esophagitis; F41.9 Anxiety disorder, unspecified; F32.A Depression, unspecified; I10 Essential (primary) hypertension; I25.10 Atherosclerotic heart disease of native coronary artery without angina pectoris; Z85.41 Personal history of malignant neoplasm of cervix uteri; Z88.0 Allergy status to penicillin; Z98.890 Other specified postprocedural states; Z79.899 Other long term (current) drug therapy; Y90.9 Presence of alcohol in blood, level not specified
CPT/HCPCS: 36415; 71045; 80048; 81001; 82948; 85008; 85025; 93005; 99285; A4615

== ENCOUNTER 2024-12-07 08:46 | Emergency (ER) | payer BC, MEDICAID ==
[~2024-12-07] VITALS: Ht 157.5 cm; Wt 59.0 kg
[2024-12-07 08:48] VITALS: BP 148/99; PULSE 82; RESP 18; TEMP 97.6; O2SAT 96
--- NOTE | 2024-12-07 09:02 | Physician Documentation ---
History of Present Illness ~ Chief Complaint: Anxiety Stated Complaint: ANXIETY Time Seen by MD: 08:49 Primary Medical Doctor: [facility] HPI 59-year-old female well known to the ED presents with a complaint of a panic attack. Denies any SI or HI. States that she has anxiety attacks that time. When asked what she takes for anxiety, she says I do not know. When asked where her pharmacy is, I do not know. Does have a history of alcohol use disorder. no other complaints at this time Day of Onset: December 07, 2024 Medication Reconciliation Allergies: Coded Allergies: Penicillins (Verified Allergy, Unknown, hives, 12/07/24) HAS RECIEVED ROCEPHIN 12/2023 Scheduled Hydroxyzine Hcl* (Atarax*), 1 TAB PO Q12H Hydroxyzine Hcl* (Atarax*), 1 TAB PO Q12H Scheduled PRN Chlordiazepoxide Hcl (Librium), 2 CAP PO Q6H PRN for alcohol withdrawal Miscellaneous Medications Home Med List (No Home Medications), (Reported) Discontinued Medications Doxycycline Hyclate (Doxycycline Hyclate), 1 CAP PO Q12H Discontinued Reason: Auto Discontinued Past Medical History Past Medical History: Seizures, Hypertension, Pneumonia, *GI/HEPATOBILIARY*, GERD, GI Bleed, Pancreatitis, Extremity Fracture, Cellulitis, Cervical Cancer/Dysplasia, Anxiety, Depression Past Surgical History: abdominal surgery, other Other Past Surgical History: Colon resection, hernia repair, colostomy Patient History: (CAD) Coronary arteriosclerosis FATHER, Name: Franki Adam, Born [birth year], Age: 91, Onset:76 (Cancer) Malignant carcinoid tumor MOTHER, Name: Tree Adam (Untreated HTN which lead to renal failure and CHF.Renal Cancer), , Age: 76, Cause: Renal failure (ARF), acute on chronic, Onset:50's - 60 Paternal Grandmother, , Cause: Colon cancer, Onset:60 years & older ([place]) Myocardial infarction FATHER, Name: Franki Adam, Born [birth year], Age: 91, Onset:76 No Family History of: (CABG) Coronary artery bypass grafting (CHF) Congestive heart failure (COPD) Chronic obstructive lung disease (CVA) Cerebrovascular accident (DM Type 2) Diabetes mellitus type 2 (DM Type1) Diabetes mellitus type 1 (PVD) Peripheral vascular disease (TIA) Transient ischemic attack Alzheimer's disease Aortic aneurysm Asthma Cardiac arrest Hypercholesterolemia Drug Use: none Review of Systems All Other Systems at this time: Reviewed and Negative ROS As stated above in the HPI, otherwise all systems are reviewed and negative. Physical Exam Vital Signs: Temperature: 97.6, Source: Temporal, Heart Rate: 82, Respiratory Rate: 18, BP: 148/99, Pulse Oximetry: 96, Weight: 58.950 Physical Exam General: Alert, no apparent distress. Respiratory: Lungs clear, no respiratory distress. Cardiovascular: Regular rate and rhythm, no murmurs. Extremities: Normal range of motion, no deformity. Neurologic: Oriented x4. Psychiatric: mildly anxious appearing Skin: Normal color, warm and dry. No edema, no ecchymosis. Progress Results/Orders Results/Orders Vital Signs 12/07/24 08:48 Temp 97.6 Pulse 82 Resp 18 B/P (MAP) 148/99 Pulse Ox 96 Medical Decision Making Findings Currently suspecting a mild panic attack. I offered hydroxyzine to the patient to help with her psychiatric problems. Offered a prescription to the local [facility] pharmacy which she agreed to. We will go ahead and discharge her and have her follow up in outpatient therapy for further evaluation of psychiatric disturbances. He is not present with any signs of psychosis HI or SI Differential Dx:Considerations: Include: Alcohol abuse, Anxiety, Bipolar disorder, Conversion disorder, Depression, Encephaloathy, Homicidal, Panic disorder, Personality disorder, Schizophrenia, Substance abuse, Suicidal, Other Departure Disposition: 01 HOME / SELF CARE / HOMELESS Impression: Primary Impression: Anxiety attack Additional Impressions: Anxiety Panic attack Condition: Stable Discharge Instructions: Emotional Crisis Referrals: NO PRIMARY CARE PROVIDER (PCP) Prescriptions Hydroxyzine Hcl* (Atarax*) 25 Mg Tablet 1 TAB PO Q12H for anxiety for 30 Days, #60 TAB Prov: ANDREA VU NP 12/07/24 Education Educated: Patient Educated regarding: diagnosis Signature Scribe Signature: f Attestation: The note accurately reflects work and decisions made by me.Andrea Soliman NP 12/07/24 18:09 ANDREA VU NP December 07, 2024 09:02
== END 2024-12-07 09:19 | disposition home or self-care (01) ==
LOC: ER 08:46
DX: F41.0 Panic disorder [episodic paroxysmal anxiety] (principal); I11.9 Hypertensive heart disease without heart failure; I25.10 Atherosclerotic heart disease of native coronary artery without angina pectoris; Z85.41 Personal history of malignant neoplasm of cervix uteri; Z88.0 Allergy status to penicillin; Z88.1 Allergy status to other antibiotic agents; Z98.890 Other specified postprocedural states
CPT/HCPCS: 99283

== ENCOUNTER 2024-12-07 11:13 | Emergency (ER) | payer BC, MEDICAID ==
[~2024-12-07] VITALS: Ht 162.6 cm; Wt 68.0 kg
[2024-12-07 11:25] VITALS: BP 112/82; PULSE 71; RESP 18; O2SAT 89
--- NOTE | 2024-12-07 11:49 | Physician Documentation ---
History of Present Illness ~ General Chief Complaint: See Chief Complaint Stated Complaint: ANXIETY Time Seen by MD: 11:47 [facility] History of Present Illness Initial Comments 59-year-old female patient presents for the 2nd time this morning. According to triage nurse she is requesting medical clearance for alcohol rehab. I asked the patient what I could help her with and her response was, �I do not know� She is not present in any acute distress. Medication Reconciliation Allergies: Coded Allergies: Penicillins (Verified Allergy, Unknown, hives, 12/07/24) HAS RECIEVED ROCEPHIN 12/2023 Scheduled Hydroxyzine Hcl* (Atarax*), 1 TAB PO Q12H Hydroxyzine Hcl* (Atarax*), 1 TAB PO Q12H Scheduled PRN Chlordiazepoxide Hcl (Librium), 2 CAP PO Q6H PRN for alcohol withdrawal Miscellaneous Medications Home Med List (No Home Medications), (Reported) Discontinued Medications Doxycycline Hyclate (Doxycycline Hyclate), 1 CAP PO Q12H Discontinued Reason: Auto Discontinued Past Medical History Past Medical History: Seizures, Hypertension, Pneumonia, *GI/HEPATOBILIARY*, GERD, GI Bleed, Pancreatitis, Extremity Fracture, Cellulitis, Cervical Cancer/Dysplasia, Anxiety, Depression Past Surgical History: abdominal surgery, other Other Past Surgical History: Colon resection, hernia repair, colostomy Patient History: (CAD) Coronary arteriosclerosis FATHER, Name: Franki Adam, Born [birth year], Age: 91, Onset:76 (Cancer) Malignant carcinoid tumor MOTHER, Name: Tree Adam (Untreated HTN which lead to renal failure and CHF.Renal Cancer), , Age: 76, Cause: Renal failure (ARF), acute on chronic, Onset:50's - 60 Paternal Grandmother, , Cause: Colon cancer, Onset:60 years & older ([place]) Myocardial infarction FATHER, Name: Franki Adam, Born [birth year], Age: 91, Onset:76 No Family History of: (CABG) Coronary artery bypass grafting (CHF) Congestive heart failure (COPD) Chronic obstructive lung disease (CVA) Cerebrovascular accident (DM Type 2) Diabetes mellitus type 2 (DM Type1) Diabetes mellitus type 1 (PVD) Peripheral vascular disease (TIA) Transient ischemic attack Alzheimer's disease Aortic aneurysm Asthma Cardiac arrest Hypercholesterolemia Drug Use: none Review of Systems All Other Systems at this time: Reviewed and Negative ROS As stated above in the HPI, otherwise all systems are reviewed and negative. Physical Exam Physical Exam Vital Signs: Heart Rate: 71, Respiratory Rate: 18, BP: 112/82, Pulse Oximetry: 89, Weight: 68.000 Physical Exam General: Alert, no apparent distress. Respiratory: Lungs clear, no respiratory distress. Cardiovascular: Regular rate and rhythm, no murmurs. Gastrointestinal: Soft, nontender, nondistended. Bowels sounds present. Neurologic: Oriented x4. Psychiatric: Normal mood and affect. Skin: Normal color, warm and dry. No edema, no ecchymosis. Progress Results/Orders Results/Orders Vital Signs 12/07/24 11:25 Pulse 71 Resp 18 B/P (MAP) 112/82 Pulse Ox 89 Departure Disposition: HOME / SELF CARE / HOMELESS Impression: Primary Impression: General medical exam Condition: Stable Referrals: NO PRIMARY CARE PROVIDER (PCP) Education Educated: Patient Educated regarding: diagnosis Signature Scribe Signature: g Attestation: The note accurately reflects work and decisions made by me.Joe Vu - ABRAHAM 12/07/24 18:21 JOE VU NP December 07, 2024 11:49
== END 2024-12-07 14:10 | disposition home or self-care (01) ==
LOC: ER 11:14
DX: Z00.8 Encounter for other general examination (principal); F41.9 Anxiety disorder, unspecified; I11.9 Hypertensive heart disease without heart failure; I25.10 Atherosclerotic heart disease of native coronary artery without angina pectoris; Z88.0 Allergy status to penicillin; Z88.1 Allergy status to other antibiotic agents; Z98.890 Other specified postprocedural states
CPT/HCPCS: 99283

== ENCOUNTER 2024-12-07 17:28 | Emergency (ER) | payer BC, MEDICAID ==
[~2024-12-07] VITALS: Ht 165.1 cm; Wt 59.0 kg
[2024-12-07 17:36] VITALS: BP 141/89; PULSE 89; RESP 20; TEMP 97.6; O2SAT 97
--- NOTE | 2024-12-07 17:50 | Physician Documentation ---
History of Present Illness ~ Chief Complaint: Anxiety Stated Complaint: PANIC ATTACK Primary Medical Doctor: [facility] HPI This is a 59-year-old female who presents back to the emergency department for the 3rd time today, patient reports feeling anxious and confused, patient repo rts that she has been drinking a significant amount of alcohol today though she is unable to report the precise amount. Medication Reconciliation Allergies: Coded Allergies: Penicillins (Verified Allergy, Unknown, hives, 12/07/24) HAS RECIEVED ROCEPHIN 12/2023 Scheduled Hydroxyzine Hcl* (Atarax*), 1 TAB PO Q12H Hydroxyzine Hcl* (Atarax*), 1 TAB PO Q12H Scheduled PRN Chlordiazepoxide Hcl (Librium), 2 CAP PO Q6H PRN for alcohol withdrawal Miscellaneous Medications Home Med List (No Home Medications), (Reported) Discontinued Medications Doxycycline Hyclate (Doxycycline Hyclate), 1 CAP PO Q12H Discontinued Reason: Auto Discontinued Past Medical History Past Medical History: Seizures, Hypertension, Pneumonia, *GI/HEPATOBILIARY*, GERD, GI Bleed, Pancreatitis, Extremity Fracture, Cellulitis, Cervical Cancer/Dysplasia, Anxiety, Depression Past Surgical History: abdominal surgery, other Other Past Surgical History: Colon resection, hernia repair, colostomy Patient History: (CAD) Coronary arteriosclerosis FATHER, Name: Franki Adam, Born [birth year], Age: 91, Onset:76 (Cancer) Malignant carcinoid tumor MOTHER, Name: Tree Adam (Untreated HTN which lead to renal failure and CHF.Renal Cancer), , Age: 76, Cause: Renal failure (ARF), acute on chronic, Onset:50's - 60 Paternal Grandmother, , Cause: Colon cancer, Onset:60 years & older ([place]) Myocardial infarction FATHER, Name: Franki Adam, Born [birth year], Age: 91, Onset:76 No Family History of: (CABG) Coronary artery bypass grafting (CHF) Congestive heart failure (COPD) Chronic obstructive lung disease (CVA) Cerebrovascular accident (DM Type 2) Diabetes mellitus type 2 (DM Type1) Diabetes mellitus type 1 (PVD) Peripheral vascular disease (TIA) Transient ischemic attack Alzheimer's disease Aortic aneurysm Asthma Cardiac arrest Hypercholesterolemia Drug Use: none Review of Systems ROS Anxiety and confusion as stated above in the HPI, otherwise all systems are reviewed and negative. Physical Exam Vital Signs: Temperature: 97.6, Source: Temporal, Heart Rate: 89, Respiratory Rate: 20, BP: 141/89, Pulse Oximetry: 97, Weight: 58.950 Physical Exam VITALS: Reviewed and as above. GENERAL: Alert, nontoxic appearing, no apparent distress. RESPIRATORY: No increased work of breathing, no respiratory distress, speaking in full clear sentences Progress Results/Orders Results/Orders Vital Signs 12/07/24 17:36 Temp 97.6 Pulse 89 Resp 20 B/P (MAP) 141/89 Pulse Ox 97 Medical Decision Making Findings MSE performed in triage and patient returned to ED lobby by nursing staff while waiting unavailable ED room, patient appears to have eloped while waiting ED room. Differential Dx:Considerations: Include: Alcohol abuse, Anxiety, Bipolar disorder, Conversion disorder, Panic disorder, Personality disorder, Substance abuse Departure Disposition: 07 LEFT AWOL/ELOPED Impression: Primary Impression: Anxiety Additional Impression: Alcoholic intoxication Qualified Codes: F10.920 - Alcohol use, unspecified with intoxication, uncomplicated Referrals: NO PRIMARY CARE PROVIDER (PCP) Signature Scribe Signature: No scribe Attestation: The note accurately reflects work and decisions made by me.VIDYA Yu 12/08/24 03:21 BLAYNE WARREN December 07, 2024 17:50
== END 2024-12-07 22:18 ==
LOC: ER 17:29
DX: F41.9 Anxiety disorder, unspecified (principal); I11.9 Hypertensive heart disease without heart failure; I25.10 Atherosclerotic heart disease of native coronary artery without angina pectoris; F32.A Depression, unspecified; F10.129 Alcohol abuse with intoxication, unspecified; Z85.41 Personal history of malignant neoplasm of cervix uteri; Z88.0 Allergy status to penicillin; Z88.1 Allergy status to other antibiotic agents; Z98.890 Other specified postprocedural states; Y90.9 Presence of alcohol in blood, level not specified
CPT/HCPCS: 99283

== ENCOUNTER 2024-12-08 17:25 | Emergency (ER) | payer BC, MEDICAID ==
[~2024-12-08] VITALS: Ht 165.1 cm; Wt 56.8 kg
[2024-12-08 17:33] VITALS: BP 133/81; PULSE 92; RESP 18; O2SAT 94
--- NOTE | 2024-12-08 18:23 | Physician Documentation ---
History of Present Illness General Chief Complaint: Confused Stated Complaint: CONFUSION Time Seen by MD: 17:36 Primary Medical Doctor: [facility] History of Present Illness Initial Comments This is a 59-year-old female who presents EMS back to the emergency department for reported confusion, this is the same concern that she was seen for multiple times yesterday, patient does admit to drinking alcohol as she did yesterday though does not indicates how much alcohol she has drank. When question why she presents to the emergency department she reports no acute symptoms or concerns other than �I do not know, I have memory problems". Per EMS report patient was alert and oriented x4 GCS 15 for them and also reported to EMS drinking alcohol today. Medication Reconciliation Allergies: Coded Allergies: Penicillins (Verified Allergy, Unknown, hives, 12/08/24) HAS RECIEVED ROCEPHIN 12/2023 Scheduled Hydroxyzine Hcl* (Atarax*), 1 TAB PO Q12H Hydroxyzine Hcl* (Atarax*), 1 TAB PO Q12H Scheduled PRN Chlordiazepoxide Hcl (Librium), 2 CAP PO Q6H PRN for alcohol withdrawal Miscellaneous Medications Home Med List (No Home Medications), (Reported) Discontinued Medications Doxycycline Hyclate (Doxycycline Hyclate), 1 CAP PO Q12H Discontinued Reason: Auto Discontinued Past Medical History Past Medical History: Seizures, Hypertension, Pneumonia, *GI/HEPATOBILIARY*, GERD, GI Bleed, Pancreatitis, Extremity Fracture, Cellulitis, Cervical Cancer/Dysplasia, Anxiety, Depression Past Surgical History: abdominal surgery, other Other Past Surgical History: Colon resection, hernia repair, colostomy Drug Use: none Review of Systems ROS As stated above in the HPI, otherwise all systems are reviewed and negative. Physical Exam Physical Exam Vital Signs: Temperature: 97.8, Source: Temporal, Heart Rate: 92, Respiratory Rate: 18, BP: 133/81, Pulse Oximetry: 94, Weight: 56.800 Physical Exam VITALS: Reviewed and as above. GENERAL: Alert, nontoxic appearing, no apparent distress. RESPIRATORY: No increased work of breathing, no respiratory distress, speaking in full clear sentences, clear lung sounds in all meraz CV: Regular rate and rhythm no murmur NEURO: GCS 15 Progress Results/Orders Results/Orders Vital Signs 12/08/24 12/08/24 17:33 19:06 Temp 97.8 97.8 Pulse 92 Resp 18 B/P (MAP) 133/81 Pulse Ox 94 Medical Decision Making Findings MSE performed in triage and patient returned to ED lobby by nursing staff while waiting placement in available ED room. This 59-year-old female presented back to the emergency department with similar complaints she was seen for multiple times yesterday, patient was reporting vague complaint of �confusion� though is alert and oriented x4 and GCS 15. On further questioning patient reported her only concern was getting assistance returning to the [place]. Per EMS report and patient's own admission patient has been drinking heavily today, this was also the case yesterday when she was seen. As patient is reporting no physical symptoms or other concerns she is appropriate for outpatient follow up. Her physical exam was benign. Patient provided return to care precautions. Differential Diagnosis Intoxication, substance abuse, personality disorder, malingering, homeless, hungry, CVA, dementia Departure Time of Disposition: 18:43 Disposition: 01 HOME / SELF CARE / HOMELESS Impression: Primary Impression: Alcoholic intoxication Qualified Codes: F10.920 - Alcohol use, unspecified with intoxication, uncomplicated Condition: Improved Additional Instructions: As you report your only complaint is needing help back to the [place] you are medically cleared to return to the [place]. Please stop abusing the 911 system. Please return to the emergency department for any new or worsening concerning symptoms. Referrals: NO PRIMARY CARE PROVIDER (PCP) Education Educated: Patient Educated regarding: diagnosis, treatment, prognosis, need for follow up Signature Scribe Signature: No scribe Attestation: The note accurately reflects work and decisions made by me.VIDYA Yu 12/09/24 02:33 BLAYNE WARREN December 08, 2024 18:23
[2024-12-08 19:06] VITALS: TEMP 97.8
== END 2024-12-08 19:10 | disposition home or self-care (01) ==
LOC: ER 17:26
DX: F10.129 Alcohol abuse with intoxication, unspecified (principal); I10 Essential (primary) hypertension; F32.A Depression, unspecified; K21.9 Gastro-esophageal reflux disease without esophagitis; Z85.41 Personal history of malignant neoplasm of cervix uteri; Z88.0 Allergy status to penicillin; Z88.1 Allergy status to other antibiotic agents; Z98.890 Other specified postprocedural states; Y90.9 Presence of alcohol in blood, level not specified
CPT/HCPCS: 99283

== ENCOUNTER → 2024-12-26 | Emergency (ER) | payer BC, MEDICAID ==
[~2024-12-26] VITALS: Ht 157.5 cm; Wt 58.0 kg
--- NOTE | 2024-12-26 15:40 | Physician Documentation ---
History of Present Illness ~ Chief Complaint: Anxiety Stated Complaint: ANXIETY Time Seen by MD: 16:15 OK to notify your PCP?: Yes Primary Medical Doctor: [facility] Source: patient Mode of Arrival: EMS Exam Limitations: no limitations HPI 59-year-old female brought in by EMS from the [place] for anxiety. She is able to answer questions in triage but appreciate the thinks that was is the president still and does not know what day of the week it is. She has a history of alcoholism but does not remember when her last drink was. Medication Reconciliation Allergies: Coded Allergies: Penicillins (Verified Allergy, Unknown, hives, 12/08/24) HAS RECIEVED ROCEPHIN 12/2023 Scheduled Hydroxyzine Hcl* (Atarax*), 1 TAB PO Q12H Scheduled PRN Chlordiazepoxide Hcl (Librium), 2 CAP PO Q6H PRN for alcohol withdrawal Miscellaneous Medications Home Med List (No Home Medications), (Reported) Discontinued Medications Hydroxyzine Hcl* (Atarax*), 1 TAB PO Q12H Discontinued Reason: Auto Discontinued Past Medical History Past Medical History: Seizures, Hypertension, Pneumonia, *GI/HEPATOBILIARY*, GERD, GI Bleed, Pancreatitis, Extremity Fracture, Cellulitis, Cervical Cancer/Dysplasia, Anxiety, Depression Past Surgical History: abdominal surgery, other Other Past Surgical History: Colon resection, hernia repair, colostomy Patient History: (CAD) Coronary arteriosclerosis FATHER, Name: Franki Adam, Born [birth year], Age: 91, Onset:76 (Cancer) Malignant carcinoid tumor MOTHER, Name: Tree Adam (Untreated HTN which lead to renal failure and CHF.Renal Cancer), , Age: 76, Cause: Renal failure (ARF), acute on chronic, Onset:50's - 60 Paternal Grandmother, , Cause: Colon cancer, Onset:60 years & older ([place]) Myocardial infarction FATHER, Name: Franki Adam, Born [birth year], Age: 91, Onset:76 No Family History of: (CABG) Coronary artery bypass grafting (CHF) Congestive heart failure (COPD) Chronic obstructive lung disease (CVA) Cerebrovascular accident (DM Type 2) Diabetes mellitus type 2 (DM Type1) Diabetes mellitus type 1 (PVD) Peripheral vascular disease (TIA) Transient ischemic attack Alzheimer's disease Aortic aneurysm Asthma Cardiac arrest Hypercholesterolemia Drug Use: none Review of Systems All Other Systems at this time: Reviewed and Negative Physical Exam Physical Exam General: Alert, no apparent distress. HEENT: PERRL, EOMI, no injection, moist mucous membranes. Neck: Full range of motion. Respiratory: Lungs clear, no respiratory distress. Chest: No accessory muscle use. Cardiovascular: Regular rate and rhythm, no murmurs. Gastrointestinal: Soft, nontender, nondistended. Bowels sounds present. Extremities: Normal range of motion, no deformity. Neurologic: Oriented x4. Psychiatric: Normal mood and affect. Skin: Normal color, warm and dry. No edema, no ecchymosis. Progress Results/Orders Results/Orders Vital Signs 12/26/24 12/26/24 15:32 16:54 Temp 97.7 97.7 Pulse 84 67 Resp 18 15 B/P (MAP) 111/75 116/79 Pulse Ox 98 98 O2 Flow Rate 0 Medical Decision Making Findings Discussing patient's hardship case where she lost her phone and has misplaced her funds for disability for unknown reasons I suspect that primary reason that he is being seen here in the ED is is for anxiety secondary to these issues. As unable to replenish or help her find her phone at this time for I advised her to stop drinking alcohol has a think that is likely a contributing factor new line new line she requests a ride back to the [place] and I provided her a bus pass Differential Dx:Considerations: Include: Alcohol abuse, Anxiety, Bipolar disorder, Conversion disorder, Depression, Encephaloathy, Homicidal, Panic disorder, Personality disorder, Schizophrenia, Substance abuse, Suicidal, Other Departure Impression: Primary Impression: Anxiety Additional Impression: Alcoholic intoxication Condition: Stable Discharge Instructions: Alcohol Intoxication, Panic Attack Additional Comment Medical Screen Exam This patient recieved a medical screening examination. After reviewing the individual's medical complaints with presenting symptoms and performing an ap propriate physical examination, it was determined that no emergency medical condition is present. This individual is also not a women having contractions. Signature Scribe Signature: g Attestation: The note accurately reflects work and decisions made by me.Joe Soliman NP 12/26/24 18:33 LUIS MIGUEL CABALLERO MATCHING MACHINE OPERATOR December 26, 2024 15:40 JOE VU NP December 26, 2024 16:26
[2024-12-26 16:54] VITALS: BP 116/79; PULSE 67; RESP 15; TEMP 97.7; O2SAT 98
== END | disposition home or self-care (01) ==
LOC: ER 15:05
DX: F41.9 Anxiety disorder, unspecified (principal); F10.129 Alcohol abuse with intoxication, unspecified; I10 Essential (primary) hypertension; I25.10 Atherosclerotic heart disease of native coronary artery without angina pectoris; F32.A Depression, unspecified; Z85.41 Personal history of malignant neoplasm of cervix uteri; Z88.0 Allergy status to penicillin; Z88.1 Allergy status to other antibiotic agents; Z98.890 Other specified postprocedural states; Y90.9 Presence of alcohol in blood, level not specified
CPT/HCPCS: 99281; 99283

== ENCOUNTER 2025-01-03 19:14 | Emergency (ER) | payer BC, MEDICAID ==
[~2025-01-03] VITALS: Ht 157.5 cm; Wt 56.3 kg
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
[2025-01-03] MEDS: normal saline 1000ML IV soln IVB ONE (19:48)
[2025-01-03 20:37] LABS: BASOPHILS % (AUTO) 1.1 % (0-1); EOSINOPHILS # (AUTO) 0.1 X10'3 (0-0.9); EOSINOPHILS % (AUTO) 2.4 % (0-6); HEMATOCRIT 34.3 % (35.0-45.0); HEMOGLOBIN 10.7 g/dl (12.0-16.0); LYMPHOCYTES % (AUTO) 22.3 % (21-51); MEAN CORPUSCULAR HEMOGLOBIN 23.5 PG (27.0-31.0); MEAN CORPUSCULAR HGB CONC 31.3 g/dL (33.0-36.5); MEAN CORPUSCULAR VOLUME 75.2 FL (78-98); MEAN PLATELET VOLUME 7.1 FL (7.4-10.4); MONOCYTES # (AUTO) 0.3 X10'3 (0-0.9); MONOCYTES % (AUTO) 7.2 % (2-12); PLATELET COUNT 375 X10'3 (140-440); RED BLOOD COUNT 4.56 X10'6 (4.20-5.60); RED CELL DISTRIBUTION WIDTH 22.1 % (11.5-14.5); WHITE BLOOD COUNT 4.5 X10'3 (4.5-11.0)
[2025-01-03 20:58] LABS: APTT 27 SECONDS (22-32); PROTHROMBIN TIME 10.3 SECONDS (9.0-12.0)
[2025-01-03 21:12] LABS: ALANINE AMINOTRANSFERASE 13 U/L (12-78); ALBUMIN 3.5 G/DL (3.4-5.0); ALBUMIN/GLOBULIN RATIO 0.9 (1.1-1.5); ALKALINE PHOSPHATASE 59 IU/L (46-116); ANION GAP 12 (8-16); ASPARTATE AMINO TRANSFERASE 19 U/L (10-37); BILIRUBIN,TOTAL 0.3 MG/DL (0.1-1.0); BLOOD UREA NITROGEN 8 MG/DL (7-18); BUN/CREATININE RATIO 10.3 (10.0-20.0); CALCIUM 8.4 MG/DL (8.5-10.1); CHLORIDE 109 MMOL/L (99-107); CREATINE KINASE 85 U/L (26-192); CREATININE 0.78 MG/DL (0.40-0.90); ETHANOL 299 MG/DL (<10); GLUCOSE 92 MG/DL (70-104); LIPASE 25 U/L (16-77); MAGNESIUM 2.1 MG/DL (1.5-2.4); POTASSIUM 3.6 MMOL/L (3.5-5.1); SODIUM 144 MMOL/L (135-145); TOTAL CARBON DIOXIDE 22.6 MMOL/L (24-32); TOTAL PROTEIN 7.4 G/DL (6.4-8.2); eCRCL 60 ML/MIN; eGFR 75 ML/MIN
[2025-01-03 21:30] LABS: ANISOCYTOSIS 3+; MICROCYTOSIS 1+; PLATELET ESTIMATE NORMAL
[2025-01-03 22:14] VITALS: BP 124/90
[2025-01-04 00:01] LABS: BILIRUBIN,URINE NEGATIVE (Neg); CLARITY,URINE SLIGHTLY CLOUDY (Clear); COLOR,URINE YELLOW (Yellow); GLUCOSE, URINE NEGATIVE (Neg); KETONES,URINE NEGATIVE (Neg); LEUKOCYTE ESTERASE ,URINE NEGATIVE (Neg); NITRITES, URINE NEGATIVE (Neg); OCCULT BLOOD,URINE MODERATE (Neg); PROTEIN,URINE NEGATIVE (Neg); UROBILINOGEN,URINE 0.2 E.U/dL (0.2-1.0)
[2025-01-04 00:03] LABS: URINE AMPHETAMINE SCREEN NEGATIVE (Neg); URINE BARBITUATE SCREEN NEGATIVE (Neg); URINE BENZODIAZEPINES SCREEN NEGATIVE (Neg); URINE CANNABINOID SCREEN NEGATIVE (Neg); URINE COCAINE SCREEN NEGATIVE (Neg); URINE METHADONE SCREEN NEGATIVE (Neg); URINE OPIATE SCREEN NEGATIVE (Neg); URINE PHENCYCLIDINE SCREEN NEGATIVE (Neg)
[2025-01-04 00:14] LABS: UA COLLECTION TYPE NON-SPECIFIED
[2025-01-04 00:15] LABS: BACTERIA,URINE 4+ /HPF (Neg); SQUAMOUS EPITHELIAL CELL,UR FEW /LPF (FEW); WBC,URINE 0-4 /HPF (0-4)
[2025-01-04 01:47] VITALS: PULSE 64; RESP 16; TEMP 98.6; O2SAT 100
[2025-01-07] MEDS ORDERED: LACT1CAP26 PO (06:55)
[2025-01-07] MEDS ORDERED: AMLO5TAB16 PO (06:55)
[2025-01-07] MEDS ORDERED: FOLI0.4T6 PO (06:55)
[2025-01-07] MEDS ORDERED: THIA50TA10 PO (06:55)
[2025-01-07] MEDS ORDERED: LEVO-65 PO (12:30)
== END 2025-01-04 01:42 | disposition home or self-care (01) ==
LOC: ER 19:14
DX: F10.129 Alcohol abuse with intoxication, unspecified (principal); R41.82 Altered mental status, unspecified; I10 Essential (primary) hypertension; I25.10 Atherosclerotic heart disease of native coronary artery without angina pectoris; K21.9 Gastro-esophageal reflux disease without esophagitis; F41.9 Anxiety disorder, unspecified; F32.A Depression, unspecified; Z85.41 Personal history of malignant neoplasm of cervix uteri; Z88.0 Allergy status to penicillin; Z98.890 Other specified postprocedural states; Z79.899 Other long term (current) drug therapy; Y90.9 Presence of alcohol in blood, level not specified
CPT/HCPCS: 36415; 80053; 80305; 80320; 81001; 82550; 83605; 83690; 83735; 84484; 85025; 85610; 85730; 87077; 87088; 87186; 96360; 96361; 99283; J7030; 81003; 85008

== ENCOUNTER 2025-01-07 20:10 | Emergency (ER) | payer BC, MEDICAID ==
[~2025-01-07 20:10] MED LIST changes: +AMLO5TAB16 PO; -CHLO25CA10 PO; +FOLI0.4T6 PO; -HYDR-3686 PO; +LACT1CAP26 PO; +LEVO-65 PO; -NO HOME MEDS; +THIA50TA10 PO
[2025-01-07 20:32] VITALS: BP 108/68; PULSE 86; RESP 15; TEMP 97.6; O2SAT 95
--- NOTE | 2025-01-07 21:43 | Physician Documentation ---
History of Present Illness ~ General Chief Complaint: General Stated Complaint: ETOH Time Seen by MD: 20:36 Primary Medical Doctor: none History of Present Illness Initial Comments Patient is seen today with very scattered complaints. Patient states she has a toothache. Patient is not a good historian. Patient appears to be high on some illicit substance. Patient denies any chest pain or nausea or vomiting. She has no other concern or complaint at this time. Medication Reconciliation Allergies: Coded Allergies: Penicillins (Verified Allergy, Unknown, hives, 01/07/25) HAS RECIEVED ROCEPHIN 12/2023 Scheduled Amlodipine Besylate (Amlodipine Besylate), 1 TAB PO DAILY Folic Acid* (Folic Acid*), 1 TAB PO DAILY Lactobacillus Rhamnosus (Culturelle), 1 CAP PO BID Levofloxacin (Levofloxacin), 500 MG PO DAILY Thiamine HCl (Vitamin B-1), 2 TAB PO DAILY Discontinued Medications Chlordiazepoxide Hcl (Librium), 2 CAP PO Q6H PRN for alcohol withdrawal Discontinued Reason: patient no longer taking Home Med List (No Home Medications), (Reported) Discontinued Reason: patient no longer taking Hydroxyzine Hcl* (Atarax*), 1 TAB PO Q12H Discontinued Reason: ADR (Adverse Drug Rxn) Past Medical History Past Medical History: Seizures, Hypertension, Pneumonia, *GI/HEPATOBILIARY*, GERD, GI Bleed, Pancreatitis, Extremity Fracture, Cellulitis, Cervical Cancer/Dysplasia, Anxiety, Depression Past Surgical History: abdominal surgery, other Other Past Surgical History: Colon resection, hernia repair, colostomy Patient History: (CAD) Coronary arteriosclerosis FATHER, Name: Franki Adam, Born [birth year], Age: 91, Onset:76 (Cancer) Malignant carcinoid tumor MOTHER, Name: Tree Adam (Untreated HTN which lead to renal failure and CHF.Renal Cancer), , Age: 76, Cause: Renal failure (ARF), acute on chronic, Onset:50's - 60 Paternal Grandmother, , Cause: Colon cancer, Onset:60 years & older ([place]) Myocardial infarction FATHER, Name: Franki Adam, Born [birth year], Age: 91, Onset:76 No Family History of: (CABG) Coronary artery bypass grafting (CHF) Congestive heart failure (COPD) Chronic obstructive lung disease (CVA) Cerebrovascular accident (DM Type 2) Diabetes mellitus type 2 (DM Type1) Diabetes mellitus type 1 (PVD) Peripheral vascular disease (TIA) Transient ischemic attack Alzheimer's disease Aortic aneurysm Asthma Cardiac arrest Hypercholesterolemia Alcohol Use: Alcoholic Drug Use: none Lives with: Alone Lives In: Other Occupation: disabled Review of Systems Constitutional: Denies: chills, fever, weakness Eyes: Denies: pain, blurred vision ENT: Denies: ear pain, nose pain, throat pain, mouth pain Respiratory: Denies: cough, shortness of breath Cardiovascular: Denies: chest pain, palpitations Gastrointestinal: Denies: abdominal pain, nausea, vomiting Genitourinary: Denies: burning, dysuria Female Genitalia: Denies: vaginal discharge, pelvic pain Neurological: Denies: headache, dizziness Musculoskeletal: Denies: pain, swelling Integumentary: Denies: rash, lesions Allergic/Immunologic: Denies: hives, itching Hematologic/Lymphatic: Denies: no symptoms reported Psychiatric: Denies: depression, anxiety Physical Exam Physical Exam Vital Signs: Temperature: 97.6, Source: Temporal, Heart Rate: 86, Respiratory Rate: 15, BP: 108/68, Pulse Oximetry: 95 Physical Exam General: Awake and Alert, no acute distress. HEENT: Patient has very poor dentition with multiple dental caries. Conjunctiva pink, Sclera clear, Mucus Membranes moist. Neck: Supple without masses and tenderness. Resp: Unlabored. Lungs clear to auscultation bilaterally. Heart: Regular Rate and rhythm, normal S1 and S2 without murmur, rub or gallop. Abdomen: Soft and non tender no organomegaly Extremities: No cyanosis,clubbing or edema. Skin: Warm and Dry. Progress Results/Orders Results/Orders Vital Signs 01/07/25 20:32 Temp 97.6 Pulse 86 Resp 15 B/P (MAP) 108/68 Pulse Ox 95 Medical Decision Making Findings Patient will perform warm compress at home. I do not believe any type of oral antibiotic is needed at this time. Patient will follow up with primary care in 2-5 days if no better as needed sooner. Return to ED with any worsening, concerning or changing symptoms. I did discuss with the patient possible antibiotic coverage for dental pain however patient left prior to being given the antibiotic and prior to prescription being sent to patient pharmacy. Patient will return to ED with any worsening, concerning or changing symptoms. Departure Disposition: 07 LEFT AWOL/ELOPED Impression: Primary Impression: General medical exam Additional Impression: Pain, dental Condition: Stable Additional Instructions: I did discuss with the patient possible antibiotic coverage for dental pain however patient left prior to being given the antibiotic and prior to prescription being sent to patient pharmacy. Patient will return to ED with any worsening, concerning or changing symptoms. Referrals: NO PRIMARY CARE PROVIDER (PCP) Signature Scribe Signature: No scribe Attestation: No scribe BLAYNE WARREN OB GYN PHYSICIAN ASSISTANT Jan 07, 2025 21:43 JOSE WHITING PAC Jan 07, 2025 23:45
== END 2025-01-07 21:53 | disposition left against medical advice (07) ==
LOC: ER 20:11
DX: K08.89 Other specified disorders of teeth and supporting structures (principal); Z00.8 Encounter for other general examination; F41.9 Anxiety disorder, unspecified; F32.A Depression, unspecified; K21.9 Gastro-esophageal reflux disease without esophagitis; C64.9 Malignant neoplasm of unspecified kidney, except renal pelvis; I10 Essential (primary) hypertension; I25.10 Atherosclerotic heart disease of native coronary artery without angina pectoris; Z85.41 Personal history of malignant neoplasm of cervix uteri; Z88.0 Allergy status to penicillin; Z98.890 Other specified postprocedural states
CPT/HCPCS: 99283

== ENCOUNTER 2025-01-07 23:54 | Emergency (ER) | payer BC, MEDICAID ==
[2025-01-07 23:56] VITALS: BP 102/70; PULSE 76; RESP 16; O2SAT 96
--- NOTE | 2025-01-08 01:02 | Physician Documentation ---
History of Present Illness ~ General Chief Complaint: General Stated Complaint: CONFUSED Time Seen by MD: 00:54 Primary Medical Doctor: none Source: patient Mode of Arrival: POV Exam Limitations: no limitations History of Present Illness Initial Comments Patient in who is well known to the ER according to nursing staff. When I talked to the patient and asked her what brought her into the emergency room she states that she is looking for a ride back to the [place]. She denies any other medical needs. Medication Reconciliation Allergies: Coded Allergies: Penicillins (Verified Allergy, Unknown, hives, 01/07/25) HAS RECIEVED ROCEPHIN 12/2023 Scheduled Amlodipine Besylate (Amlodipine Besylate), 1 TAB PO DAILY Folic Acid* (Folic Acid*), 1 TAB PO DAILY Lactobacillus Rhamnosus (Culturelle), 1 CAP PO BID Levofloxacin (Levofloxacin), 500 MG PO DAILY Thiamine HCl (Vitamin B-1), 2 TAB PO DAILY Discontinued Medications Chlordiazepoxide Hcl (Librium), 2 CAP PO Q6H PRN for alcohol withdrawal Discontinued Reason: patient no longer taking Home Med List (No Home Medications), (Reported) Discontinued Reason: patient no longer taking Hydroxyzine Hcl* (Atarax*), 1 TAB PO Q12H Discontinued Reason: ADR (Adverse Drug Rxn) Past Medical History Past Medical History: Seizures, Hypertension, Pneumonia, *GI/HEPATOBILIARY*, GERD, GI Bleed, Pancreatitis, Extremity Fracture, Cellulitis, Cervical Cancer/Dysplasia, Anxiety, Depression Past Surgical History: abdominal surgery, other Other Past Surgical History: Colon resection, hernia repair, colostomy Patient History: (CAD) Coronary arteriosclerosis FATHER, Name: Franki Adam, Born [birth year], Age: 91, Onset:76 (Cancer) Malignant carcinoid tumor MOTHER, Name: Tree Adam (Untreated HTN which lead to renal failure and CHF.Renal Cancer), , Age: 76, Cause: Renal failure (ARF), acute on chronic, Onset:50's - 60 Paternal Grandmother, , Cause: Colon cancer, Onset:60 years & older ([place]) Myocardial infarction FATHER, Name: Franki Adam, Born [birth year], Age: 91, Onset:76 No Family History of: (CABG) Coronary artery bypass grafting (CHF) Congestive heart failure (COPD) Chronic obstructive lung disease (CVA) Cerebrovascular accident (DM Type 2) Diabetes mellitus type 2 (DM Type1) Diabetes mellitus type 1 (PVD) Peripheral vascular disease (TIA) Transient ischemic attack Alzheimer's disease Aortic aneurysm Asthma Cardiac arrest Hypercholesterolemia Alcohol Use: Alcoholic Drug Use: none Lives with: Alone Lives In: Other Occupation: disabled Review of Systems All Other Systems at this time: Reviewed and Negative Physical Exam Physical Exam Vital Signs: Temperature: 96.8, Source: Temporal, Heart Rate: 76, Respiratory Rate: 16, BP: 102/70, Pulse Oximetry: 96 Physical Exam General: Alert and oriented x4, well-appearing, well-nourished, no acute distress HEENT: Normocephalic, atraumatic, no visible or palpable masses or depression, extraocular movements intact, PERRLA, Heart: Regular rate and rhythm, Lungs: Clear normal work of breathing Extremities: Full range of motion, no acute deformity, peripheral pulses intact, no cyanosis or edema Musculoskeletal: Normal gait, normal tone Neurologic: Cranial nerves 2-12 are intact, reflexes normal Psychiatric: Alert and oriented x4, judgment and insight normal, normal mood and affect Skin: Good turgor, no rashes Progress Results/Orders Results/Orders Vital Signs 01/07/25 01/08/25 23:56 01:07 Temp 96.8 96.8 Pulse 76 Resp 16 B/P (MAP) 102/70 Pulse Ox 96 Departure Disposition: 01 HOME / SELF CARE / HOMELESS Impression: Primary Impression: Homelessness Additional Impression Text Patient reports that she was literally just seeking a ride back to a place that she can stay. Nursing staff discussed arrangements with patient. Patient discharged home in good condition. Follow up with PCP as needed. Condition: Stable Additional Instructions: Follow-up with your primary care provider in the next 7-10 days. Return here if any concerns prior to follow-up. Referrals: NO PRIMARY CARE PROVIDER (PCP) Education Educated: Patient Educated regarding: need for follow up Signature Scribe Signature: No scribe Attestation: No scribe EMA GARCIA MD Jan 08, 2025 01:02
[2025-01-08 01:07] VITALS: TEMP 96.8
== END 2025-01-08 01:10 | disposition home or self-care (01) ==
LOC: ER 23:55
DX: R41.0 Disorientation, unspecified (principal); Z59.00 Homelessness unspecified; I10 Essential (primary) hypertension; I25.10 Atherosclerotic heart disease of native coronary artery without angina pectoris; F41.9 Anxiety disorder, unspecified; K21.9 Gastro-esophageal reflux disease without esophagitis; F32.A Depression, unspecified; Z85.41 Personal history of malignant neoplasm of cervix uteri; Z88.0 Allergy status to penicillin; Z98.890 Other specified postprocedural states
CPT/HCPCS: 99283

== ENCOUNTER 2025-01-08 03:15 | Emergency (ER) | payer BC, MEDICAID ==
[~2025-01-08] VITALS: Ht 157.5 cm; Wt 57.2 kg
[2025-01-08 03:20] VITALS: BP 138/93; PULSE 89; RESP 13; TEMP 97; O2SAT 97
--- NOTE | 2025-01-08 05:26 | Physician Documentation ---
History of Present Illness ~ General Chief Complaint: See Chief Complaint Stated Complaint: ALCOHOL WITHDRAWAL Time Seen by MD: 04:15 Primary Medical Doctor: none Source: patient Mode of Arrival: POV Exam Limitations: no limitations History of Present Illness Initial Comments Patient back in the ER who is sleeping. Normal vital signs. When waking her up and talking to her she states that she should be at the [place] but that is a couple of miles away at least. States she believes her last meal was a couple of days ago. States that she drinks alcohol 3 or 4 times a week and last drink was earlier today. Medication Reconciliation Allergies: Coded Allergies: Penicillins (Verified Allergy, Unknown, hives, 01/07/25) HAS RECIEVED ROCEPHIN 12/2023 Scheduled Amlodipine Besylate (Amlodipine Besylate), 1 TAB PO DAILY Folic Acid* (Folic Acid*), 1 TAB PO DAILY Lactobacillus Rhamnosus (Culturelle), 1 CAP PO BID Levofloxacin (Levofloxacin), 500 MG PO DAILY Thiamine HCl (Vitamin B-1), 2 TAB PO DAILY Discontinued Medications Chlordiazepoxide Hcl (Librium), 2 CAP PO Q6H PRN for alcohol withdrawal Discontinued Reason: patient no longer taking Home Med List (No Home Medications), (Reported) Discontinued Reason: patient no longer taking Hydroxyzine Hcl* (Atarax*), 1 TAB PO Q12H Discontinued Reason: ADR (Adverse Drug Rxn) Past Medical History Past Medical History: Seizures, Hypertension, Pneumonia, *GI/HEPATOBILIARY*, GERD, GI Bleed, Pancreatitis, Extremity Fracture, Cellulitis, Cervical Cancer/Dysplasia, Anxiety, Depression Past Surgical History: abdominal surgery, other Other Past Surgical History: Colon resection, hernia repair, colostomy Patient History: (CAD) Coronary arteriosclerosis FATHER, Name: Franki Adam, Born [birth year], Age: 91, Onset:76 (Cancer) Malignant carcinoid tumor MOTHER, Name: Tree Adam (Untreated HTN which lead to renal failure and CHF.Renal Cancer), , Age: 76, Cause: Renal failure (ARF), acute on chronic, Onset:50's - 60 Paternal Grandmother, , Cause: Colon cancer, Onset:60 years & older ([place]) Myocardial infarction FATHER, Name: Franki Adam, Born [birth year], Age: 91, Onset:76 No Family History of: (CABG) Coronary artery bypass grafting (CHF) Congestive heart failure (COPD) Chronic obstructive lung disease (CVA) Cerebrovascular accident (DM Type 2) Diabetes mellitus type 2 (DM Type1) Diabetes mellitus type 1 (PVD) Peripheral vascular disease (TIA) Transient ischemic attack Alzheimer's disease Aortic aneurysm Asthma Cardiac arrest Hypercholesterolemia Alcohol Use: Alcoholic Drug Use: none Lives with: Alone Lives In: Other Occupation: disabled Review of Systems All Other Systems at this time: Reviewed and Negative Physical Exam Physical Exam Vital Signs: Temperature: 97.0, Heart Rate: 89, Respiratory Rate: 13, BP: 138/93, Pulse Oximetry: 97, Weight: 57.200 Oxygen Flow Rate: 0 Physical Exam General: Alert and oriented x4, well-appearing, well-nourished, no acute distress, sleeping HEENT: Normocephalic, atraumatic, no visible or palpable masses or depression, extraocular movements intact, PERRLA, no scleral icterus, neck is supple and nontender, mucous membranes moist Heart: Regular rate and rhythm, no murmurs, rubs or gallops Lungs: Clear to auscultation bilaterally, normal work of breathing Abdomen: Soft, nontender, no palpable masses, normal bowel sounds Musculoskeletal: Normal gait, normal tone Neurologic: Cranial nerves 2-12 are intact, Psychiatric: Alert and oriented x4, judgment and insight normal, normal mood and affect Skin: Good turgor, no rashes Progress Results/Orders Results/Orders Vital Signs 01/08/25 03:20 Temp 97.0 Pulse 89 Resp 13 B/P (MAP) 138/93 Pulse Ox 97 O2 Flow Rate 0 Departure Disposition: 01 HOME / SELF CARE / HOMELESS Impression: Primary Impression: Homelessness Additional Impression: Hungry Qualified Codes: T73.0XXA - Starvation, initial encounter Additional Impression Text Patient was given a meal and allowed to sleep for awhile in the ED before being discharged home in good condition. No signs of alcohol withdrawal. Follow up with PCP. Condition: Stable Additional Instructions: Follow-up with your doctor. Referrals: NO PRIMARY CARE PROVIDER (PCP) Education Educated: Patient Educated regarding: need for follow up Signature Scribe Signature: No scribe Attestation: No scribe EMA GARCIA MD Jan 08, 2025 05:26
== END 2025-01-08 05:38 | disposition home or self-care (01) ==
LOC: ER 03:16
DX: T73.0XXA Starvation, initial encounter (principal); Z59.00 Homelessness unspecified; I10 Essential (primary) hypertension; I25.10 Atherosclerotic heart disease of native coronary artery without angina pectoris; F41.9 Anxiety disorder, unspecified; F10.90 Alcohol use, unspecified, uncomplicated; K21.9 Gastro-esophageal reflux disease without esophagitis; F32.A Depression, unspecified; Z85.41 Personal history of malignant neoplasm of cervix uteri; Z88.0 Allergy status to penicillin; Z98.890 Other specified postprocedural states; X58.XXXA Exposure to other specified factors, initial encounter; Y93.89 Activity, other specified; Y92.89 Other specified places as the place of occurrence of the external cause; Y99.8 Other external cause status; Y90.9 Presence of alcohol in blood, level not specified
CPT/HCPCS: 99281

== ENCOUNTER 2025-01-12 15:58 | Emergency (ER) | payer BC, MEDICAID ==
[~2025-01-12] VITALS: Ht 162.6 cm; Wt 61.4 kg
[~2025-01-12 15:58] MED LIST changes: -LEVO-65 PO
--- NOTE | 2025-01-12 16:42 | Physician Documentation ---
History of Present Illness ~ Chief Complaint: Anxiety Stated Complaint: ANXIETY Time Seen by MD: 17:19 Primary Medical Doctor: none HPI This 59-year-old female is well known to the department with known history of alcohol abuse presents by EMS after a bystander was report to called 911 after observing patient lying under a tree, patient reports she does not know if she or another 1st called 911 patient reports only symptoms are anxiety. Medication Reconciliation Allergies: Coded Allergies: Penicillins (Verified Allergy, Unknown, hives, 01/12/25) HAS RECIEVED ROCEPHIN 12/2023 Scheduled Amlodipine Besylate (Amlodipine Besylate), 1 TAB PO DAILY Folic Acid* (Folic Acid*), 1 TAB PO DAILY Lactobacillus Rhamnosus (Culturelle), 1 CAP PO BID Thiamine HCl (Vitamin B-1), 2 TAB PO DAILY Discontinued Medications Levofloxacin (Levofloxacin), 500 MG PO DAILY Discontinued Reason: Auto Discontinued Past Medical History Past Medical History: Seizures, Hypertension, Pneumonia, *GI/HEPATOBILIARY*, GERD, GI Bleed, Pancreatitis, Extremity Fracture, Cellulitis, Cervical Cancer/Dysplasia, Anxiety, Depression Past Surgical History: abdominal surgery, other Other Past Surgical History: Colon resection, hernia repair, colostomy Patient History: (CAD) Coronary arteriosclerosis FATHER, Name: Franki Adam, Born [birth year], Age: 91, Onset:76 (Cancer) Malignant carcinoid tumor MOTHER, Name: Tree Adam (Untreated HTN which lead to renal failure and CHF.Renal Cancer), , Age: 76, Cause: Renal failure (ARF), acute on chronic, Onset:50's - 60 Paternal Grandmother, , Cause: Colon cancer, Onset:60 years & older ([place]) Myocardial infarction FATHER, Name: Franki Adam, Born [birth year], Age: 91, Onset:76 No Family History of: (CABG) Coronary artery bypass grafting (CHF) Congestive heart failure (COPD) Chronic obstructive lung disease (CVA) Cerebrovascular accident (DM Type 2) Diabetes mellitus type 2 (DM Type1) Diabetes mellitus type 1 (PVD) Peripheral vascular disease (TIA) Transient ischemic attack Alzheimer's disease Aortic aneurysm Asthma Cardiac arrest Hypercholesterolemia Alcohol Use: Alcoholic Drug Use: none Lives with: Alone Lives In: Other Occupation: disabled Review of Systems ROS As stated above in the HPI, otherwise all systems are reviewed and negative. Physical Exam Vital Signs: Temperature: 97.6, Source: Temporal, Heart Rate: 88, Respiratory Rate: 18, BP: 103/67, Pulse Oximetry: 97, Weight: 61.360 Physical Exam VITALS: Reviewed and as above. GENERAL: Alert, nontoxic appearing, no apparent distress. Smell of alcohol on breath RESPIRATORY: No increased work of breathing, no respiratory distress, speaking in full clear sentences NEURO: Oriented x4, GCS 15, able to ambulate with a steady unassisted gait Progress Results/Orders Results/Orders Vital Signs 01/12/25 01/12/25 16:11 19:08 Temp 97.6 98.6 Pulse 88 86 Resp 18 16 B/P (MAP) 103/67 110/70 Pulse Ox 97 97 Medical Decision Making Findings This is a 59-year-old female who is brought in by EMS after bystander called 911 after seeing patient asleep under a tree. On initial assessment patient reported only symptom was anxiety, patient did appear intoxicated on initial assessment. On reassessment patient found sleeping in ED room comfortably, on questioning patient reports she does not remember why she came to the emergency department , is feeling better and is ready to leave. This patient is well- known in this emergency department, known to be a heavy drinker and per EMS report patient had 911 called due to sleeping under a tree and being found likely intoxicated. She did not know how much she drank today, though admitted to drinking. Physical exam benign, patient is otherwise well-appearing, stable vital signs and appropriate for outpatient follow up. Differential Dx:Considerations: Include: Alcohol abuse, Anxiety, Bipolar disorder Departure Disposition: 01 HOME / SELF CARE / HOMELESS Impression: Primary Impression: Anxiety Additional Impressions: History of ETOH abuse Intoxication Condition: Improved Additional Instructions: I am glad you are feeling better, Please follow up with your primary care provider in the next few days. Please return to the emergency department for any new or worsening concerning symptoms. Referrals: NO PRIMARY CARE PROVIDER (PCP) Education Educated: Patient Educated regarding: diagnosis, treatment, prognosis, need for follow up Additional Comment Medical Screen Exam History: This 59-year-old female is well known to the department with known history of alcohol abuse presents by EMS after a bystander was report to called 911 after observing patient lying under a tree, patient reports she does not know if she or another 1st called 911 patient reports only symptoms are anxiety. Exam: VITALS: Reviewed and as above. GENERAL: Alert, nontoxic appearing, no apparent distress. RESPIRATORY: No increased work of breathing, no respiratory distress, speaking in full clear sentences MSE performed in triage and patient returned to ED lobby by nursing staff available ED room The note accurately reflects work and decisions made by me.VIDYA Yu 01/12/25 16:42 Signature Scribe Signature: No scribe Attestation: The note accurately reflects work and decisions made by me.VIDYA Yu 01/13/25 01:42 BLAYNE WARREN Jan 12, 2025 16:42
[2025-01-12 19:08] VITALS: BP 110/70; PULSE 86; RESP 16; TEMP 98.6; O2SAT 97
== END 2025-01-12 19:08 | disposition home or self-care (01) ==
LOC: ER 15:59
DX: F41.9 Anxiety disorder, unspecified (principal); F10.129 Alcohol abuse with intoxication, unspecified; I10 Essential (primary) hypertension; I25.10 Atherosclerotic heart disease of native coronary artery without angina pectoris; F32.A Depression, unspecified; K21.9 Gastro-esophageal reflux disease without esophagitis; Z85.41 Personal history of malignant neoplasm of cervix uteri; Z88.0 Allergy status to penicillin; Z88.1 Allergy status to other antibiotic agents; Z98.890 Other specified postprocedural states; Y90.9 Presence of alcohol in blood, level not specified
CPT/HCPCS: 99283

== ENCOUNTER 2025-01-14 15:56 | Emergency (ER) | payer BC, MEDICAID ==
[~2025-01-14] VITALS: Ht 157.5 cm; Wt 56.0 kg
[2025-01-14 16:01] VITALS: BP 103/66; PULSE 85; RESP 16; TEMP 98.7; O2SAT 90
--- NOTE | 2025-01-14 17:23 | Physician Documentation ---
History of Present Illness ~ Chief Complaint: Anxiety Stated Complaint: ETOH Time Seen by MD: 16:07 Primary Medical Doctor: joshua HPI Patient is seen today with complaints of alcohol intoxication. Patient states she wants to get out ear and go to the [place]. Patient is a poor historian. She denies any chest pain or shortness of breath or abdominal pain or nausea, vomiting, diarrhea. Patient refuses to answer questions about her alcohol history. She has no other concern or complaint at this time. Medication Reconciliation Allergies: Coded Allergies: Penicillins (Verified Allergy, Unknown, hives, 01/12/25) HAS RECIEVED ROCEPHIN 12/2023 Scheduled Amlodipine Besylate (Amlodipine Besylate), 1 TAB PO DAILY Folic Acid* (Folic Acid*), 1 TAB PO DAILY Lactobacillus Rhamnosus (Culturelle), 1 CAP PO BID Thiamine HCl (Vitamin B-1), 2 TAB PO DAILY Discontinued Medications Levofloxacin (Levofloxacin), 500 MG PO DAILY Discontinued Reason: Auto Discontinued Past Medical History Past Medical History: Seizures, Hypertension, Pneumonia, *GI/HEPATOBILIARY*, GERD, GI Bleed, Pancreatitis, Extremity Fracture, Cellulitis, Cervical Cancer/Dysplasia, Anxiety, Depression Past Surgical History: abdominal surgery, other Other Past Surgical History: Colon resection, hernia repair, colostomy Patient History: (CAD) Coronary arteriosclerosis FATHER, Name: Franki Adam, Born [birth year], Age: 91, Onset:76 (Cancer) Malignant carcinoid tumor MOTHER, Name: Tree Adam (Untreated HTN which lead to renal failure and CHF.Renal Cancer), , Age: 76, Cause: Renal failure (ARF), acute on chronic, Onset:50's - 60 Paternal Grandmother, , Cause: Colon cancer, Onset:60 years & older ([place]) Myocardial infarction FATHER, Name: Franki Adam, Born [birth year], Age: 91, Onset:76 No Family History of: (CABG) Coronary artery bypass grafting (CHF) Congestive heart failure (COPD) Chronic obstructive lung disease (CVA) Cerebrovascular accident (DM Type 2) Diabetes mellitus type 2 (DM Type1) Diabetes mellitus type 1 (PVD) Peripheral vascular disease (TIA) Transient ischemic attack Alzheimer's disease Aortic aneurysm Asthma Cardiac arrest Hypercholesterolemia Alcohol Use: Alcoholic Drug Use: none Lives with: Alone Lives In: Other Occupation: disabled Review of Systems Constitutional: Denies: chills, fever, weakness Eyes: Denies: pain, blurred vision ENT: Denies: ear pain, nose pain, throat pain, mouth pain Respiratory: Denies: cough, shortness of breath Cardiovascular: Denies: chest pain, palpitations Gastrointestinal: Denies: abdominal pain, nausea, vomiting Genitourinary: Denies: burning, dysuria Female Genitalia: Denies: vaginal discharge, pelvic pain Neurological: Denies: headache, dizziness Musculoskeletal: Denies: pain, swelling Integumentary: Denies: rash, lesions Allergic/Immunologic: Denies: hives, itching Hematologic/Lymphatic: Denies: no symptoms reported Psychiatric: Denies: depression, anxiety Physical Exam Vital Signs: Temperature: 98.7, Source: Temporal, Heart Rate: 85, Respiratory Rate: 16, BP: 103/66, Pulse Oximetry: 90, Weight: 56.000 Oxygen Flow Rate: 0 Physical Exam General: Awake and Alert, no acute distress. HEENT: Conjunctiva pink, Sclera clear, Mucus Membranes moist. Neck: Supple without masses and tenderness. Resp: Unlabored. Lungs clear to auscultation bilaterally. Heart: Regular Rate and rhythm, normal S1 and S2 without murmur, rub or gallop. Abdomen: Soft and non tender no organomegaly Extremities: No cyanosis,clubbing or edema. Skin: Warm and Dry. Progress Results/Orders Results/Orders Vital Signs 01/14/25 16:01 Temp 98.7 Pulse 85 Resp 16 B/P (MAP) 103/66 Pulse Ox 90 O2 Flow Rate 0 Medical Decision Making Findings Patient is seen today with complaints of alcohol intoxication. Patient states she wants to get out ear and go to the [place]. Patient is a poor historian. She denies any chest pain or shortness of breath or abdominal pain or nausea, vomiting, diarrhea. Patient refuses to answer questions about her alcohol history. She has no other concern or complaint at this time. Patient will follow up with primary care in 2-5 days if no better as needed sooner. Patient is medically cleared for recovery program. Patient seen will return to ED with any worsening, concerning or changing symptoms. Departure Disposition: HOME / SELF CARE / HOMELESS Impression: Primary Impression: Anxiety Additional Impression: Intoxication Condition: Improved Discharge Instructions: Panic Attack Additional Instructions: Patient will follow up with primary care in 2-5 days if no better as needed sooner. Patient is medically cleared for recovery program. Patient seen will return to ED with any worsening, concerning or changing symptoms. Referrals: NO PRIMARY CARE PROVIDER (PCP) Signature Scribe Signature: No scribe Attestation: No scribe JOSE WHITING [facility] Jan 14, 2025 17:23
== END 2025-01-14 17:47 | disposition home or self-care (01) ==
LOC: ER 15:56
DX: F10.129 Alcohol abuse with intoxication, unspecified (principal); F41.9 Anxiety disorder, unspecified; F32.A Depression, unspecified; I10 Essential (primary) hypertension; I25.10 Atherosclerotic heart disease of native coronary artery without angina pectoris; Z85.41 Personal history of malignant neoplasm of cervix uteri; Z88.0 Allergy status to penicillin; Z88.1 Allergy status to other antibiotic agents; Z98.890 Other specified postprocedural states; Y90.9 Presence of alcohol in blood, level not specified
CPT/HCPCS: 99283

== ENCOUNTER 2025-01-14 20:29 | Emergency (ER) | payer BC, MEDICAID ==
[~2025-01-14] VITALS: Ht 162.6 cm; Wt 41.9 kg
[2025-01-14 20:35] VITALS: BP 118/78; PULSE 80; RESP 12; O2SAT 94
--- NOTE | 2025-01-14 21:46 | Physician Documentation ---
History of Present Illness ~ General Chief Complaint: Confused Stated Complaint: CONFUSION Time Seen by MD: 21:31 Primary Medical Doctor: none History of Present Illness Initial Comments Patient is seen today stating that she really just needs a taxi ride to the [place]. Patient is uncooperative and states she can not remember the last drink of alcohol she had. Patient denies any chest pain or shortness of breath or abdominal pain or nausea, vomiting, diarrhea. Patient has no other concern or complaint at this time and states she just wants a taxi ride to the [place]. Medication Reconciliation Allergies: Coded Allergies: Penicillins (Verified Allergy, Unknown, hives, 01/14/25) HAS RECIEVED ROCEPHIN 12/2023 Scheduled Amlodipine Besylate (Amlodipine Besylate), 1 TAB PO DAILY Folic Acid* (Folic Acid*), 1 TAB PO DAILY Lactobacillus Rhamnosus (Culturelle), 1 CAP PO BID Thiamine HCl (Vitamin B-1), 2 TAB PO DAILY Discontinued Medications Levofloxacin (Levofloxacin), 500 MG PO DAILY Discontinued Reason: Auto Discontinued Past Medical History Past Medical History: Seizures, Hypertension, Pneumonia, *GI/HEPATOBILIARY*, GERD, GI Bleed, Pancreatitis, Extremity Fracture, Cellulitis, Cervical Cancer/Dysplasia, Anxiety, Depression Past Surgical History: abdominal surgery, other Other Past Surgical History: Colon resection, hernia repair, colostomy Patient History: (CAD) Coronary arteriosclerosis FATHER, Name: Franki Adam, Born [birth year], Age: 91, Onset:76 (Cancer) Malignant carcinoid tumor MOTHER, Name: Tree Adam (Untreated HTN which lead to renal failure and CHF.Renal Cancer), , Age: 76, Cause: Renal failure (ARF), acute on chronic, Onset:50's - 60 Paternal Grandmother, , Cause: Colon cancer, Onset:60 years & older ([place]) Myocardial infarction FATHER, Name: Franki Adam, Born [birth year], Age: 91, Onset:76 No Family History of: (CABG) Coronary artery bypass grafting (CHF) Congestive heart failure (COPD) Chronic obstructive lung disease (CVA) Cerebrovascular accident (DM Type 2) Diabetes mellitus type 2 (DM Type1) Diabetes mellitus type 1 (PVD) Peripheral vascular disease (TIA) Transient ischemic attack Alzheimer's disease Aortic aneurysm Asthma Cardiac arrest Hypercholesterolemia Alcohol Use: Alcoholic Drug Use: none Lives with: Alone Lives In: Other Occupation: disabled Review of Systems Constitutional: Denies: chills, fever, weakness Eyes: Denies: pain, blurred vision ENT: Denies: ear pain, nose pain, throat pain, mouth pain Respiratory: Denies: cough, shortness of breath Cardiovascular: Denies: chest pain, palpitations Gastrointestinal: Denies: abdominal pain, nausea, vomiting Genitourinary: Denies: burning, dysuria Female Genitalia: Denies: vaginal discharge, pelvic pain Neurological: Denies: headache, dizziness Musculoskeletal: Denies: pain, swelling Integumentary: Denies: rash, lesions Allergic/Immunologic: Denies: hives, itching Hematologic/Lymphatic: Denies: no symptoms reported Psychiatric: Denies: depression, anxiety Physical Exam Physical Exam Vital Signs: Temperature: 98.0, Source: Temporal, Heart Rate: 80, Respiratory Rate: 12, BP: 118/78, Pulse Oximetry: 94, Weight: 41.900 Oxygen Flow Rate: 0 Physical Exam General: Awake and Alert, no acute distress. HEENT: Conjunctiva pink, Sclera clear, Mucus Membranes moist. Neck: Supple without masses and tenderness. Resp: Unlabored. Lungs clear to auscultation bilaterally. Heart: Regular Rate and rhythm, normal S1 and S2 without murmur, rub or gallop. Abdomen: Soft and non tender no organomegaly Extremities: No cyanosis,clubbing or edema. Skin: Warm and Dry. Progress Results/Orders Results/Orders Vital Signs 01/14/25 20:35 Temp 98.0 Pulse 80 Resp 12 B/P (MAP) 118/78 Pulse Ox 94 O2 Flow Rate 0 Medical Decision Making Findings Patient is seen today stating that she really just needs a taxi ride to the [place]. Patient is uncooperative and states she can not remember the last drink of alcohol she had. Patient denies any chest pain or shortness of breath or abdominal pain or nausea, vomiting, diarrhea. Patient has no other concern or complaint at this time and states she just wants a taxi ride to the [place]. Patient states she is hungry. Patient was given a sandwich and chips and juice. Patient's history and physical exam findings are relatively benign. I advise patient and agree that patient would do well of the [place]. Patient is medically cleared to enter the [place]. Patient will return to ED with any worsening, concerning or changing symptoms. Departure Disposition: HOME / SELF CARE / HOMELESS Impression: Primary Impression: Hungry Qualified Codes: T73.0XXA - Starvation, initial encounter Condition: Improved Additional Instructions: Patient was given a sandwich and chips and juice. Patient's history and physical exam findings are relatively benign. I advise patient and agree that patient would do well of the [place]. Patient is medically cleared to enter the [place]. Patient will return to ED with any worsening, concerning or changing symptoms. Referrals: NO PRIMARY CARE PROVIDER (PCP) Signature Scribe Signature: No scribe Attestation: No scribe JOSE WHITING PAC Jan 14, 2025 21:46
[2025-01-14 21:47] VITALS: TEMP 98
== END 2025-01-14 21:54 | disposition home or self-care (01) ==
LOC: ER 20:29
DX: T73.0XXA Starvation, initial encounter (principal); I10 Essential (primary) hypertension; I25.10 Atherosclerotic heart disease of native coronary artery without angina pectoris; F41.9 Anxiety disorder, unspecified; F32.A Depression, unspecified; C64.9 Malignant neoplasm of unspecified kidney, except renal pelvis; Z85.41 Personal history of malignant neoplasm of cervix uteri; Z88.0 Allergy status to penicillin; Z88.1 Allergy status to other antibiotic agents; Z98.890 Other specified postprocedural states; X58.XXXA Exposure to other specified factors, initial encounter
CPT/HCPCS: 99283

== ENCOUNTER 2025-01-15 20:33 | Emergency (ER) | payer BC, MEDICAID ==
[~2025-01-15] VITALS: Ht 162.6 cm; Wt 41.9 kg
--- NOTE | 2025-01-15 22:43 | Physician Documentation ---
History of Present Illness ~ Chief Complaint: ETOH Stated Complaint: SEE CHIEF COMPLAINT Time Seen by MD: 20:45 Primary Medical Doctor: none HPI Patient initially came in by ambulance covered in feces and the EMS were kind enough to provide in area in the ambulance [place] to wash her off patient was given new clothes. Patient is seen today with complaints of alcohol intoxication. Patient denies any chest pain or shortness of breath or abdominal pain or nausea, vomiting, diarrhea. Patient has no other concern or complaint at this time. Tetanus within 5 years?: No Medication Reconciliation Allergies: Coded Allergies: Penicillins (Verified Allergy, Unknown, hives, 01/15/25) HAS RECIEVED ROCEPHIN 12/2023 Scheduled Amlodipine Besylate (Amlodipine Besylate), 1 TAB PO DAILY Folic Acid* (Folic Acid*), 1 TAB PO DAILY Lactobacillus Rhamnosus (Culturelle), 1 CAP PO BID Thiamine HCl (Vitamin B-1), 2 TAB PO DAILY Discontinued Medications Levofloxacin (Levofloxacin), 500 MG PO DAILY Discontinued Reason: Auto Discontinued Past Medical History Past Medical History: Seizures, Hypertension, Pneumonia, *GI/HEPATOBILIARY*, GERD, GI Bleed, Pancreatitis, Extremity Fracture, Cellulitis, Cervical Cancer/Dysplasia, Anxiety, Depression Past Surgical History: abdominal surgery, other Other Past Surgical History: Colon resection, hernia repair, colostomy Patient History: (CAD) Coronary arteriosclerosis FATHER, Name: Franki Adam, Born [birth year], Age: 91, Onset:76 (Cancer) Malignant carcinoid tumor MOTHER, Name: Tree Adam (Untreated HTN which lead to renal failure and CHF.Renal Cancer), , Age: 76, Cause: Renal failure (ARF), acute on chronic, Onset:50's - 60 Paternal Grandmother, , Cause: Colon cancer, Onset:60 years & older ([place]) Myocardial infarction FATHER, Name: Franki Adam, Born [birth year], Age: 91, Onset:76 No Family History of: (CABG) Coronary artery bypass grafting (CHF) Congestive heart failure (COPD) Chronic obstructive lung disease (CVA) Cerebrovascular accident (DM Type 2) Diabetes mellitus type 2 (DM Type1) Diabetes mellitus type 1 (PVD) Peripheral vascular disease (TIA) Transient ischemic attack Alzheimer's disease Aortic aneurysm Asthma Cardiac arrest Hypercholesterolemia Alcohol Use: Alcoholic Drug Use: none Lives with: Alone Lives In: Other Occupation: disabled Review of Systems Constitutional: Denies: chills, fever, weakness Eyes: Denies: pain, blurred vision ENT: Denies: ear pain, nose pain, throat pain, mouth pain Respiratory: Denies: cough, shortness of breath Cardiovascular: Denies: chest pain, palpitations Gastrointestinal: Denies: abdominal pain, nausea, vomiting Genitourinary: Denies: burning, dysuria Female Genitalia: Denies: vaginal discharge, pelvic pain Neurological: Denies: headache, dizziness Musculoskeletal: Denies: pain, swelling Integumentary: Denies: rash, lesions Allergic/Immunologic: Denies: hives, itching Hematologic/Lymphatic: Denies: no symptoms reported Psychiatric: Denies: depression, anxiety Physical Exam Vital Signs: Temperature: 98.4, Heart Rate: 78, Respiratory Rate: 18, BP: 118/74, Pulse Oximetry: 98, Weight: 41.900 Physical Exam General: Awake and Alert, no acute distress. HEENT: Conjunctiva pink, Sclera clear, Mucus Membranes moist. Neck: Supple without masses and tenderness. Resp: Unlabored. Lungs clear to auscultation bilaterally. Heart: Regular Rate and rhythm, normal S1 and S2 without murmur, rub or gallop. Abdomen: Soft and non tender no organomegaly Extremities: No cyanosis,clubbing or edema. Skin: Warm and Dry. Progress Results/Orders Results/Orders Vital Signs 01/15/25 01/15/25 20:36 22:49 Temp 98.4 98.4 Pulse 78 72 Resp 18 16 B/P (MAP) 118/74 110/70 Pulse Ox 98 99 Medical Decision Making Findings Patient initially came in by ambulance covered in feces and the EMS were kind enough to provide in area in the ambulance [place] to wash her off patient was given new clothes. Patient is seen today with complaints of alcohol intoxication. Patient denies any chest pain or shortness of breath or abdominal pain or nausea, vomiting, diarrhea. Patient has no other concern or complaint at this time. Patient was washed and cleaned and given new clothes and provided a bed to resting for a little while. Patient really has no complaints other than being intoxicated and wanting to go to rehab again. Patient once again is cleared for rehab from a medical standpoint. Patient will return to ED with any worsening, concerning or changing symptoms. Departure Disposition: 01 HOME / SELF CARE / HOMELESS Impression: Primary Impression: Alcoholic intoxication Additional Impression: Alcohol abuse Condition: Improved Discharge Instructions: Alcohol Intoxication Additional Instructions: Patient was washed and cleaned and given new clothes and provided a bed to resting for a little while. Patient really has no complaints other than being intoxicated and wanting to go to rehab again. Patient once again is cleared for rehab from a medical standpoint. Patient will return to ED with any worsening, concerning or changing symptoms. Referrals: NO PRIMARY CARE PROVIDER (PCP) Signature Scribe Signature: No scribe Attestation: No scribe JOSE WHITING PAC Jan 15, 2025 22:43
[2025-01-15 22:49] VITALS: BP 110/70; PULSE 72; RESP 16; TEMP 98.4; O2SAT 99
== END 2025-01-15 22:59 | disposition home or self-care (01) ==
LOC: ER 20:33
DX: F10.129 Alcohol abuse with intoxication, unspecified (principal); C64.9 Malignant neoplasm of unspecified kidney, except renal pelvis; I10 Essential (primary) hypertension; I25.10 Atherosclerotic heart disease of native coronary artery without angina pectoris; F41.9 Anxiety disorder, unspecified; F32.A Depression, unspecified; Z85.41 Personal history of malignant neoplasm of cervix uteri; Z88.0 Allergy status to penicillin; Z88.1 Allergy status to other antibiotic agents; Z98.890 Other specified postprocedural states; Y90.9 Presence of alcohol in blood, level not specified
CPT/HCPCS: 99283

== ENCOUNTER 2025-01-16 02:29 | Emergency (ER) | payer BC, MEDICAID ==
[~2025-01-16] VITALS: Ht 162.6 cm; Wt 41.9 kg
[2025-01-16 02:50] VITALS: BP 148/76; PULSE 91; RESP 17; TEMP 98.7; O2SAT 99
== END 2025-01-16 03:51 | disposition left against medical advice (07) ==
LOC: ER 02:29
DX: R41.0 Disorientation, unspecified (principal); Z88.0 Allergy status to penicillin; Z53.21 Procedure and treatment not carried out due to patient leaving prior to being seen by health care provider

== ENCOUNTER 2025-01-27 14:40 | Emergency (ER) | payer BC, MEDICAID ==
[~2025-01-27] VITALS: Ht 160 cm; Wt 50.3 kg
[2025-01-27 14:43] VITALS: BP 107/71; PULSE 91; RESP 16; TEMP 98.1; O2SAT 95
--- NOTE | 2025-01-27 14:47 | Physician Documentation ---
History of Present Illness ~ General Stated Complaint: MED CLEARENCE Time Seen by MD: 14:44 Primary Medical Doctor: none History of Present Illness Initial Comments 59-year-old female presents to the ED requesting medical clearance secondary to ingesting alcohol this morning this is in a current recovery program and states she has not drank alcohol for an extended period of time. adds tonio has never experienced withdrawals. she has lcome to the ED to be medically cleared because of the program she is in. Medication Reconciliation Allergies: Coded Allergies: Penicillins (Verified Allergy, Unknown, hives, 01/27/25) HAS RECIEVED ROCEPHIN 12/2023 Scheduled Amlodipine Besylate (Amlodipine Besylate), 1 TAB PO DAILY Folic Acid* (Folic Acid*), 1 TAB PO DAILY Lactobacillus Rhamnosus (Culturelle), 1 CAP PO BID Thiamine HCl (Vitamin B-1), 2 TAB PO DAILY Past Medical History Past Medical History: Seizures, Hypertension, Pneumonia, *GI/HEPATOBILIARY*, GERD, GI Bleed, Pancreatitis, Extremity Fracture, Cellulitis, Cervical Cancer/Dysplasia, Anxiety, Depression Past Surgical History: abdominal surgery, other Other Past Surgical History: Colon resection, hernia repair, colostomy Patient History: (CAD) Coronary arteriosclerosis FATHER, Name: Franki Adam, Born [birth year], Age: 91, Onset:76 (Cancer) Malignant carcinoid tumor MOTHER, Name: Tree Adam (Untreated HTN which lead to renal failure and CHF.Renal Cancer), , Age: 76, Cause: Renal failure (ARF), acute on chronic, Onset:50's - 60 Paternal Grandmother, , Cause: Colon cancer, Onset:60 years & older ([place]) Myocardial infarction FATHER, Name: Franki Adam, Born [birth year], Age: 91, Onset:76 No Family History of: (CABG) Coronary artery bypass grafting (CHF) Congestive heart failure (COPD) Chronic obstructive lung disease (CVA) Cerebrovascular accident (DM Type 2) Diabetes mellitus type 2 (DM Type1) Diabetes mellitus type 1 (PVD) Peripheral vascular disease (TIA) Transient ischemic attack Alzheimer's disease Aortic aneurysm Asthma Cardiac arrest Hypercholesterolemia Alcohol Use: Alcoholic Drug Use: none Lives with: Alone Lives In: Other Occupation: disabled Review of Systems All Other Systems at this time: Reviewed and Negative ROS As stated above in the HPI, otherwise all systems are reviewed and negative. Physical Exam Physical Exam Physical Exam General: Alert, no apparent distress. Respiratory: Lungs clear, no respiratory distress. Cardiovascular: Regular rate and rhythm, no murmurs. Gastrointestinal: Soft, nontender, nondistended. Bowels sounds present. Neurologic: Oriented x4. Psychiatric: Normal mood and affect. Skin: Normal color, warm and dry. No edema, no ecchymosis. Progress Results/Orders Results/Orders Vital Signs 01/27/25 14:43 Temp 98.1 Pulse 91 Resp 16 B/P (MAP) 107/71 Pulse Ox 95 Medical Decision Making Findings And does not present with any signs of acute intoxication or withdrawals. Going to medic medically clear her for recovery in the outpatient setting Departure Disposition: 01 HOME / SELF CARE / HOMELESS Impression: Primary Impression: ETOH abuse Additional Impression: Alcohol dependence Condition: Stable Additional Instructions: Medically cleared for recovery Referrals: NO PRIMARY CARE PROVIDER (PCP) Signature Scribe Signature: t Attestation: Scribed for Joe Vu Records Supervisor by Joe Soliman NP . 01/27/25 22:51 JOE VU NP Jan 27, 2025 14:47
== END 2025-01-27 14:52 | disposition home or self-care (01) ==
LOC: ER 14:41
DX: F10.20 Alcohol dependence, uncomplicated (principal); I10 Essential (primary) hypertension; F41.9 Anxiety disorder, unspecified; F32.A Depression, unspecified; I25.10 Atherosclerotic heart disease of native coronary artery without angina pectoris; K21.9 Gastro-esophageal reflux disease without esophagitis; Z85.41 Personal history of malignant neoplasm of cervix uteri; Z88.0 Allergy status to penicillin; Z88.1 Allergy status to other antibiotic agents; Z98.890 Other specified postprocedural states; Y90.9 Presence of alcohol in blood, level not specified
CPT/HCPCS: 99282

== ENCOUNTER 2025-04-17 07:12 | Emergency (ER) | payer BC, MEDICAID ==
[~2025-04-17] VITALS: Ht 157.5 cm; Wt 63.0 kg
[~2025-04-17 07:12] MED LIST changes: -FOLI0.4T6 PO
[2025-04-17 07:15] VITALS: BP 168/98; PULSE 78; RESP 19; O2SAT 98
[2025-04-17 07:51] LABS: LEUKOCYTE ESTERASE ,URINE LARGE (Neg); NITRITES, URINE NEGATIVE (Neg); OCCULT BLOOD,URINE LARGE (Neg)
[2025-04-17 07:56] LABS: UA COLLECTION TYPE CLN CATCH MIDSTREAM
[2025-04-17 07:57] LABS: MUCUS STRANDS FEW /LPF (Neg); SQUAMOUS EPITHELIAL CELL,UR MODERATE /LPF (FEW)
[2025-04-17 07:58] LABS: RENAL CELLS, URINE FEW /HPF
[2025-04-17] MEDS ORDERED: SULF1TAB49 PO (08:24)
--- NOTE | 2025-04-17 08:24 | Physician Documentation ---
History of Present Illness ~ Chief Complaint: Urinary Symptoms Stated Complaint: BLADDER INFECTION Time Seen by MD: 08:19 Primary Medical Doctor: none HPI Bladder pressure and frequency, believes she has a UTI. Medication Reconciliation Allergies: Coded Allergies: Penicillins (Verified Allergy, Unknown, hives, 04/17/25) HAS RECIEVED ROCEPHIN 12/2023 Scheduled Amlodipine Besylate (Amlodipine Besylate), 1 TAB PO DAILY Lactobacillus Rhamnosus (Culturelle), 1 CAP PO BID Thiamine HCl (Vitamin B-1), 2 TAB PO DAILY Past Medical History Past Medical History: Seizures, Hypertension, Pneumonia, *GI/HEPATOBILIARY*, G ERD, GI Bleed, Pancreatitis, Extremity Fracture, Cellulitis, Cervical Cancer/Dysplasia, Anxiety, Depression Past Surgical History: abdominal surgery, other Other Past Surgical History: Colon resection, hernia repair, colostomy Patient History: (CAD) Coronary arteriosclerosis FATHER, Name: Franki Adam, Born [birth year], Age: 91, Onset:76 (Cancer) Malignant carcinoid tumor MOTHER, Name: Tree Adam (Untreated HTN which lead to renal failure and CHF.Renal Cancer), , Age: 76, Cause: Renal failure (ARF), acute on chronic, Onset:50's - 60 Paternal Grandmother, , Cause: Colon cancer, Onset:60 years & older ([place]) Myocardial infarction FATHER, Name: Franki Adam, Born [birth year], Age: 91, Onset:76 No Family History of: (CABG) Coronary artery bypass grafting (CHF) Congestive heart failure (COPD) Chronic obstructive lung disease (CVA) Cerebrovascular accident (DM Type 2) Diabetes mellitus type 2 (DM Type1) Diabetes mellitus type 1 (PVD) Peripheral vascular disease (TIA) Transient ischemic attack Alzheimer's disease Aortic aneurysm Asthma Cardiac arrest Hypercholesterolemia Alcohol Use: Alcoholic Drug Use: none Lives with: Alone Lives In: Other Occupation: disabled Review of Systems All Other Systems at this time: Reviewed and Negative Physical Exam Vital Signs: RN Vital Signs have been reviewed: Yes, Temperature: 98.5, Heart Rate: 78, Respiratory Rate: 19, BP: 168/98, Pulse Oximetry: 98, Weight: 63.000 Physical Exam HEENT: PERRL, moist oral mucosa, EOMI Pulmonary: No respiratory distress MSK: no deformity Skin: w/d/i, no rash Neuro: alert, nonfocal Psych: normal affect Progress Results/Orders Results/Orders Orders - CARIE TALLEY MD Cult Urine + [address] (04/17/25 07:58) Completed Orders - CARIE TALLEY MD Ua W/Microscopic, Cult If Ind (04/17/25 07:21) Vital Signs 04/17/25 07:15 Temp 98.5 Pulse 78 Resp 19 B/P (MAP) 168/98 Pulse Ox 98 Laboratory Tests Test 04/17/25 07:21 Urine Specimen Description Cln catch midstream Urine Color Yellow Urine Clarity Slightly cloudy Urine pH 6.0 Urine Specific [place] <=1.005 Urine Protein 100 H Urine Glucose (UA) Negative Urine Ketones Negative Urine Occult Blood Large H Urine Nitrite Negative Urine Bilirubin Negative Urine Urobilinogen 0.2 Urine Leukocyte Esterase Large H Urine RBC 10-20 Urine WBC Tntc H Urine Squamous Epithelial Cells Moderate Urine Transitional Epithelial Cells Moderate Urine Renal Cells Few Urine Bacteria 2+ Urine Mucus Few Urine Culture Indicated Indicated Volume Urine Centrifuged 10 ml Urine Comment Medical Decision Making Additional Comment DDx = cystitis, urethritis, uti, pyelonephritis Departure Impression: Primary Impression: UTI (urinary tract infection) Condition: Stable Discharge Instructions: Urinary Tract Infection, Adult Referrals: NO PRIMARY CARE PROVIDER (PCP) Prescriptions Sulfamethoxazole/Trimethoprim (Bactrim Ds Tablet) 800 Mg-160 Mg Tablet 1 EACH PO BID, #20 TAB Prov: CARIE TALLEY MD 04/17/25 Education Educated: Patient Educated regarding: diagnosis, treatment, prognosis, need for follow up Signature Scribe Signature: . Attestation: . CARIE TALLEY MD Apr 17, 2025 08:24
[2025-04-17 08:34] VITALS: TEMP 98.5
== END 2025-04-17 08:36 | disposition home or self-care (01) ==
LOC: ER 07:13
DX: N39.0 Urinary tract infection, site not specified (principal); I10 Essential (primary) hypertension; I25.10 Atherosclerotic heart disease of native coronary artery without angina pectoris; K21.9 Gastro-esophageal reflux disease without esophagitis; F41.9 Anxiety disorder, unspecified; F32.A Depression, unspecified; Z88.0 Allergy status to penicillin; Z88.1 Allergy status to other antibiotic agents; Z98.890 Other specified postprocedural states
CPT/HCPCS: 81001; 87077; 87088; 87186; 99284

== ENCOUNTER 2025-06-10 15:40 | Emergency (ER) | payer BC, MEDICAID ==
[~2025-06-10] VITALS: Ht 157.5 cm; Wt 69.0 kg
[~2025-06-10 15:40] MED LIST changes: +FOLI0.8C PO; -LACT1CAP26 PO; +PANT40TA54 PO
[2025-06-10 15:42] VITALS: BP 143/91; PULSE 82; O2SAT 95
[2025-06-10 15:49] VITALS: RESP 18
--- NOTE | 2025-06-10 16:01 | Physician Documentation ---
History of Present Illness General Chief Complaint: ETOH Stated Complaint: CONFUSION Time Seen by MD: 15:54 Primary Medical Doctor: none Medication Reconciliation Allergies: Coded Allergies: Penicillins (Verified Allergy, Unknown, hives, 05/22/25) HAS RECIEVED ROCEPHIN 12/2023 Scheduled Amlodipine Besylate (Amlodipine Besylate), 1 TAB PO DAILY Folic Acid (Folic Acid), 1 CAP PO DAILY Pantoprazole Sodium (Pantoprazole Sodium), 40 MG PO DAILY Thiamine HCl (Vitamin B-1), 2 TAB PO DAILY Past Medical History Past Medical History: Seizures, Hypertension, Pneumonia, *GI/HEPATOBILIARY*, GERD, GI Bleed, Pancreatitis, Extremity Fracture, Cellulitis, Cervical Cancer/Dysplasia, Anxiety, Depression Past Surgical History: abdominal surgery, other Other Past Surgical History: Colon resection, hernia repair, colostomy Drug Use: none Physical Exam Physical Exam Vital Signs: Heart Rate: 82, Respiratory Rate: 18, BP: 143/91, Pulse Oximetry: 95, Weight: 69.000 Oxygen Flow Rate: 0 Progress Results/Orders Results/Orders Vital Signs 06/10/25 06/10/25 15:42 15:49 Pulse 82 Resp 18 18 B/P (MAP) 143/91 Pulse Ox 95 O2 Flow Rate 0 Departure Referrals: NO PRIMARY CARE PROVIDER (PCP) SHAINA OLSEN MD Jun 10, 2025 16:01
--- NOTE | 2025-06-10 16:16 | Physician Documentation ---
History of Present Illness ~ Chief Complaint: ETOH Stated Complaint: CONFUSION Time Seen by MD: 16:02 Primary Medical Doctor: none HPI 59-year-old female well known to this ED presents for confusion and ETOH intoxication. She is alert and oriented x4 with moderately slurred speech. According to EMS she had a fall two days ago secondary to alcoholism. Not take blood thinners He currently says she is "confused" and smells strongly of alcohol Tetanus within 5 years?: No Medication Reconciliation Allergies: Coded Allergies: Penicillins (Verified Allergy, Unknown, hives, 06/10/25) HAS RECIEVED ROCEPHIN 12/2023 Scheduled Amlodipine Besylate (Amlodipine Besylate), 1 TAB PO DAILY Folic Acid (Folic Acid), 1 CAP PO DAILY Pantoprazole Sodium (Pantoprazole Sodium), 40 MG PO DAILY Thiamine HCl (Vitamin B-1), 2 TAB PO DAILY Past Medical History Past Medical History: Seizures, Hypertension, Pneumonia, *GI/HEPATOBILIARY*, GERD, GI Bleed, Pancreatitis, Extremity Fracture, Cellulitis, Cervical Cancer/Dysplasia, Anxiety, Depression Past Surgical History: abdominal surgery, other Other Past Surgical History: Colon resection, hernia repair, colostomy Patient History: (CAD) Coronary arteriosclerosis FATHER, Name: Franki Adam, Born [birth year], Age: 91, Onset:76 (Cancer) Malignant carcinoid tumor MOTHER, Name: Tree Adam (Untreated HTN which lead to renal failure and CHF.Renal Cancer), , Age: 76, Cause: Renal failure (ARF), acute on chronic, Onset:50's - 60 Paternal Grandmother, , Cause: Colon cancer, Onset:60 years & older ([place]) Myocardial infarction FATHER, Name: Franki Adam, Born [birth year], Age: 91, Onset:76 No Family History of: (CABG) Coronary artery bypass grafting (CHF) Congestive heart failure (COPD) Chronic obstructive lung disease (CVA) Cerebrovascular accident (DM Type 2) Diabetes mellitus type 2 (DM Type1) Diabetes mellitus type 1 (PVD) Peripheral vascular disease (TIA) Transient ischemic attack Alzheimer's disease Aortic aneurysm Asthma Cardiac arrest Hypercholesterolemia Drug Use: none Review of Systems All Other Systems at this time: Reviewed and Negative ROS As stated above in the HPI, otherwise all systems are reviewed and negative. Physical Exam Vital Signs: Heart Rate: 82, Respiratory Rate: 18, BP: 143/91, Pulse Oximetry: 95, Weight: 69.000 Oxygen Flow Rate: 0 Physical Exam General: Alert, no apparent distress. Respiratory: Lungs clear, no respiratory distress. Cardiovascular: Regular rate and rhythm, no murmurs. Gastrointestinal: Soft, nontender, nondistended. Bowels sounds present. Neurologic: Oriented x4. Psychiatric:depressed appearing Skin: Normal color, warm and dry. No edema, no ecchymosis. Progress Results/Orders Results/Orders Orders - ANDREA VU NP General Nursing Order (06/10/25 ) Vital Signs 06/10/25 06/10/25 15:42 15:49 Pulse 82 Resp 18 18 B/P (MAP) 143/91 Pulse Ox 95 O2 Flow Rate 0 Medical Decision Making Additional information obtaine: N/A Findings eloped Differential Dx:Considerations: Intoxication - ETOH Departure Disposition: 07 LEFT AWOL/ELOPED Impression: Primary Impression: Alcoholic intoxication Referrals: NO PRIMARY CARE PROVIDER (PCP) Signature Scribe Signature: h Attestation: Scribed for Andrea Vu Cleat Layer by Andrea Soliman NP . 06/12/25 21:08 ANDREA VU METAL MINER Jun 10, 2025 16:16
== END 2025-06-10 17:50 | disposition left against medical advice (07) ==
LOC: ER 15:40
DX: F10.229 Alcohol dependence with intoxication, unspecified (principal); F41.9 Anxiety disorder, unspecified; F32.A Depression, unspecified; I12.9 Hypertensive chronic kidney disease with stage 1 through stage 4 chronic kidney disease, or unspecified chronic kidney disease; N18.9 Chronic kidney disease, unspecified; I25.10 Atherosclerotic heart disease of native coronary artery without angina pectoris; K21.9 Gastro-esophageal reflux disease without esophagitis; Z85.41 Personal history of malignant neoplasm of cervix uteri; Z87.19 Personal history of other diseases of the digestive system; Z88.0 Allergy status to penicillin; Z98.890 Other specified postprocedural states; Z79.899 Other long term (current) drug therapy; Y90.9 Presence of alcohol in blood, level not specified
CPT/HCPCS: 99283

== ENCOUNTER 2025-06-10 19:03 | Emergency (ER) | payer BC, MEDICAID ==
[~2025-06-10] VITALS: Ht 157.5 cm; Wt 59.1 kg
--- NOTE | 2025-06-10 19:27 | Physician Documentation ---
History of Present Illness ~ Chief Complaint: Anxiety Stated Complaint: ANXIETY Time Seen by MD: 19:25 Primary Medical Doctor: none Mode of Arrival: EMS HPI Patient presents to the emergency room with report of panic attack. Patient states she has a memory problems and isn't quite sure exactly what happened that has reported that she was at dinner drinking wine and had a panic attack which after breathing exercises from EMS resolved. Currently she states she feels fine. Denies any chest pain. Denies any palpitations Medication Reconciliation Allergies: Coded Allergies: Penicillins (Verified Allergy, Unknown, hives, 06/10/25) HAS RECIEVED ROCEPHIN 12/2023 Scheduled Amlodipine Besylate (Amlodipine Besylate), 1 TAB PO DAILY Folic Acid (Folic Acid), 1 CAP PO DAILY Pantoprazole Sodium (Pantoprazole Sodium), 40 MG PO DAILY Thiamine HCl (Vitamin B-1), 2 TAB PO DAILY Past Medical History Past Medical History: Seizures, Hypertension, Pneumonia, *GI/HEPATOBILIARY*, GERD, GI Bleed, Pancreatitis, Extremity Fracture, Cellulitis, Cervical Cancer/Dysplasia, Anxiety, Depression Past Surgical History: abdominal surgery, other Other Past Surgical History: Colon resection, hernia repair, colostomy Patient History: (CAD) Coronary arteriosclerosis FATHER, Name: Franki Adam, Born [birth year], Age: 91, Onset:76 (Cancer) Malignant carcinoid tumor MOTHER, Name: Tree Adam (Untreated HTN which lead to renal failure and CHF.Renal Cancer), , Age: 76, Cause: Renal failure (ARF), acute on chronic, Onset:50's - 60 Paternal Grandmother, , Cause: Colon cancer, Onset:60 years & older ([place]) Myocardial infarction FATHER, Name: Franki Adam, Born [birth year], Age: 91, Onset:76 No Family History of: (CABG) Coronary artery bypass grafting (CHF) Congestive heart failure (COPD) Chronic obstructive lung disease (CVA) Cerebrovascular accident (DM Type 2) Diabetes mellitus type 2 (DM Type1) Diabetes mellitus type 1 (PVD) Peripheral vascular disease (TIA) Transient ischemic attack Alzheimer's disease Aortic aneurysm Asthma Cardiac arrest Hypercholesterolemia Drug Use: none Review of Systems ROS All review of systems negative except as per HPI Physical Exam Vital Signs: Temperature: 97.5, Source: Oral, Heart Rate: 90, Respiratory Rate: 20, BP: 130/84, Pulse Oximetry: 94, Weight: 59.090 Oxygen Flow Rate: 0 Physical Exam General: Patient is sleeping, easily arousable, friendly in smiling Head: Normocephalic and atraumatic. Eyes: Conjunctival normal. EOMI. PERRL. ENT: Mucous membranes moist. Neck: Supple, trachea is midline. Chest: Clear to auscultation bilaterally without rales, rhonchi, or wheezes. There is no accessory muscle use or retractions. Cardiac: RRR without murmurs, gallops, or rubs. Progress Results/Orders Results/Orders Vital Signs 06/10/25 06/10/25 06/10/25 19:04 19:10 19:15 Temp 97.5 Pulse 94 90 Resp 22 20 20 B/P (MAP) 131/98 130/84 (99) Pulse Ox 97 94 O2 Flow Rate 0 0 Medical Decision Making Additional information obtaine: old records Findings Patient presents to the emergency room with report of anxiety attack as per HPI. Symptoms have completely resolved and given patient's history and he had not feel she requires emergent labs or imaging. I asked if that has anything she needs for me at this time and she states that there is not Differential Dx:Considerations: Include: Alcohol abuse, Anxiety, Bipolar disorder, Conversion disorder, Depression, Encephaloathy, Homicidal, Panic disorder, Personality disorder, Schizophrenia, Substance abuse, Suicidal, Other Departure Disposition: 01 HOME / SELF CARE / HOMELESS Impression: Primary Impression: Panic attack Condition: Improved Discharge Instructions: Panic Attack Referrals: NO PRIMARY CARE PROVIDER (PCP) Signature Scribe Signature: No scribe Attestation: The note accurately reflects work and decisions made by me.Kimberley Jenkins MD 06/10/25 19:31 KIMBERLEY JENKINS MD Jun 10, 2025 19:27
[2025-06-10 20:32] VITALS: BP 138/96; PULSE 86; RESP 16; TEMP 97.5; O2SAT 97
== END 2025-06-10 20:33 | disposition home or self-care (01) ==
LOC: ER 19:03
DX: F41.0 Panic disorder [episodic paroxysmal anxiety] (principal); I12.9 Hypertensive chronic kidney disease with stage 1 through stage 4 chronic kidney disease, or unspecified chronic kidney disease; N18.9 Chronic kidney disease, unspecified; K21.9 Gastro-esophageal reflux disease without esophagitis; F41.9 Anxiety disorder, unspecified; F32.A Depression, unspecified; I25.10 Atherosclerotic heart disease of native coronary artery without angina pectoris; Z85.41 Personal history of malignant neoplasm of cervix uteri; Z98.890 Other specified postprocedural states; Z88.0 Allergy status to penicillin; Z87.19 Personal history of other diseases of the digestive system; Z79.899 Other long term (current) drug therapy
CPT/HCPCS: 99283

== ENCOUNTER 2025-06-14 12:11 | Emergency (ER) | payer BC, MEDICAID ==
[~2025-06-14] VITALS: Ht 157.5 cm; Wt 60.0 kg
[2025-06-14 12:21] VITALS: TEMP 98.4
--- NOTE | 2025-06-14 13:07 | Physician Documentation ---
History of Present Illness ~ Chief Complaint: Confused Stated Complaint: MEMORY ISSUES Time Seen by MD: 12:15 Primary Medical Doctor: none Mode of Arrival: EMS HPI 59-year-old female presents to the ED with a complaint of confusion and a head strike two days ago. Patient is well known to this ED for chronic ETOH abuse. She states that she has only had wine this morning. She is aware she is an alcoholic and is adamant she does not recall the head strike two days ago. She currently has a relatively large hematoma on her left brow. She is behaving per her baseline from previous visits here in the ED Day of Onset: Jun 14, 2025 Medication Reconciliation Allergies: Coded Allergies: Penicillins (Verified Allergy, Unknown, hives, 06/10/25) HAS RECIEVED ROCEPHIN 12/2023 Scheduled Amlodipine Besylate (Amlodipine Besylate), 1 TAB PO DAILY Folic Acid (Folic Acid), 1 CAP PO DAILY Pantoprazole Sodium (Pantoprazole Sodium), 40 MG PO DAILY Thiamine HCl (Vitamin B-1), 2 TAB PO DAILY Past Medical History Past Medical History: Seizures, Hypertension, Pneumonia, *GI/HEPATOBILIARY*, GERD, GI Bleed, Pancreatitis, Extremity Fracture, Cellulitis, Cervical Cancer/Dysplasia, Anxiety, Depression Past Surgical History: abdominal surgery, other Other Past Surgical History: Colon resection, hernia repair, colostomy Patient History: (CAD) Coronary arteriosclerosis FATHER, Name: Franki Adam, Born [birth year], Age: 91, Onset:76 (Cancer) Malignant carcinoid tumor MOTHER, Name: Tree Adam (Untreated HTN which lead to renal failure and CHF.Renal Cancer), , Age: 76, Cause: Renal failure (ARF), acute on chronic, Onset:50's - 60 Paternal Grandmother, , Cause: Colon cancer, Onset:60 years & older ([place]) Myocardial infarction FATHER, Name: Franki Adam, Born [birth year], Age: 91, Onset:76 No Family History of: (CABG) Coronary artery bypass grafting (CHF) Congestive heart failure (COPD) Chronic obstructive lung disease (CVA) Cerebrovascular accident (DM Type 2) Diabetes mellitus type 2 (DM Type1) Diabetes mellitus type 1 (PVD) Peripheral vascular disease (TIA) Transient ischemic attack Alzheimer's disease Aortic aneurysm Asthma Cardiac arrest Hypercholesterolemia Drug Use: none Review of Systems All Other Systems at this time: Reviewed and Negative ROS As stated above in the HPI, otherwise all systems are reviewed and negative. Physical Exam Vital Signs: Temperature: 98.4, Source: Oral, Heart Rate: 65, Respiratory Rate: 18, BP: 154/93, Pulse Oximetry: 98, Weight: 60.000 Oxygen Flow Rate: 0 Physical Exam General: Alert, no apparent distress. HEENT: PERRL, EOMI, no injection, moist mucous membranes. left brow hematoma Neck: Full range of motion. Respiratory: Lungs clear, no respiratory distress. Neurologic: Oriented x4. Psychiatric: Normal mood and affect. Skin: Normal color, warm and dry. No edema, no ecchymosis. Progress Results/Orders Results/Orders Orders - JOE VU [facility] Ct Head (06/14/25 12:50) Completed Orders - JOE VU [facility] [address] Ct Head (06/14/25 12:50) Cbc/Diff (06/14/25 12:37) CMP (06/14/25 12:37) Ua W/Microscopic, Cult If Ind (06/14/25 12:17) Normal Saline 1000ml (0.9% Sodium Chlori (06/14/25 14:20) Electrocardiogram (06/14/25 12:23) Ondansetron Inj. (Zofran 4mg/2ml Vial) (06/14/25 15:30) Medications Received in ER Medications (Trade) Dose Ordered Sig/Van Route PRN Reason Start Time Stop Time Status Last Admin Dose Admin (0.9% sodium chloride (NS) 1000ml IV soln) 2,000 ml ONCE ONCE IVB 06/14/25 14:20 06/14/25 14:21 DC 06/14/25 14:36 2,000 ML (Zofran 4mg/2ml vial) 4 mg ONCE ONCE IV 06/14/25 15:30 06/14/25 15:31 DC 06/14/25 15:42 4 MG Vital Signs 06/14/25 06/14/25 06/14/25 06/14/25 12:21 12:26 13:09 14:20 Temp 98.4 Pulse 65 69 69 Resp 18 18 16 18 B/P (MAP) 154/93 143/90 (107) 138/88 (105) Pulse Ox 98 97 95 O2 Flow Rate 0 0 0 06/14/25 15:47 Pulse 73 Resp 16 B/P (MAP) 127/88 (101) Pulse Ox 97 O2 Flow Rate 0 Laboratory Tests Test 06/14/25 12:17 06/14/25 13:44 Urine Specimen Description Cln catch midstream Urine Color Yellow Urine Clarity Clear Urine pH 6.0 Urine Specific [place] <=1.005 Urine Protein Trace Urine Glucose (UA) Negative Urine Ketones Negative Urine Occult Blood Large H Urine Nitrite Negative Urine Bilirubin Negative Urine Urobilinogen 0.2 Urine Leukocyte Esterase Negative Urine RBC 10-20 Urine WBC None seen Urine Squamous Epithelial Cells Few Urine Transitional Epithelial Cells Few Urine Bacteria None seen Urine Culture Indicated Not ind Volume Urine Centrifuged 10 ml Urine Comment White Blood Count 6.8 Red Blood Count 4.03 L Hemoglobin 12.2 Hematocrit 37.0 Mean Corpuscular Volume 91.7 Mean Corpuscular Hemoglobin 30.1 Mean Corpuscular Hemoglobin Concent 32.8 L Red Cell Distribution Width 21.1 H Platelet Count 217 Mean Platelet Volume 6.6 L Neutrophils (%) (Auto) 81.1 H Lymphocytes (%) (Auto) 11.6 L Monocytes (%) (Auto) 6.6 Eosinophils (%) (Auto) 0.4 Basophils (%) (Auto) 0.3 Neutrophils # (Auto) 5.5 Lymphocytes # (Auto) 0.8 L Monocytes # (Auto) 0.4 Eosinophils # (Auto) 0.0 Basophils # (Auto) 0.0 CBC Comment Platelet Estimate Normal Red Blood Cell Morphology Perf Basophilic Stippling Anisocytosis 2+ Sodium Level 133 L Potassium Level 3.7 Chloride Level 96 L Carbon Dioxide Level 19.4 L Anion Gap 18 H Blood Urea Nitrogen 8 Creatinine 0.58 Estimated GFR/1.73 m2 > 90 BUN/Creatinine Ratio 13.8 Glucose Level 81 Calcium Level 8.2 L Total Bilirubin 0.6 Aspartate Amino Transf (AST/SGOT) 33 Alanine Aminotransferase (ALT/SGPT) 15 Alkaline Phosphatase 78 Total Protein 7.4 Albumin 3.6 Globulin 3.8 Albumin/Globulin Ratio 0.9 L Chemistry Comments Medical Decision Making Additional information obtaine: old records, N/A Findings Sixty he 1-year-old female presented mildly intoxicated which is normal for her presentations. She does have a mild anion gap indicating mild alcohol-induced ketoacidosis. Treated her with 2 L of fluid to rescustitate Differential Dx:Considerations: Include: dehydration, Delirium Tr., DKA, encephalopathy, hypercalcemia, HHNC, hypoglycemia, hypernatremia, hyponatremia, hypoxia, postictal, closed head injury, C-spine injury, CVA, mass lesion, subarachnoid hemorrhage, drug overdose, encephalopathy, ETOH intoxication, medication toxicity, infection - meningitis, infection - sepsis, infection - UTI, heart failure, renal failure, respiratory failure, hyperthermia, hypothermia, other Departure Disposition: 01 HOME / SELF CARE / HOMELESS Impression: Primary Impression: Alcohol abuse Condition: Stable Discharge Instructions: Alcohol Intoxication, [id number] Referrals: NO PRIMARY CARE PROVIDER (PCP) Signature Scribe Signature: y Attestation: Scribed for Joe Vu Medical Coordinator Pesticide Use by Joe Soliman NP . 06/14/25 14:23 JOE VU NP Jun 14, 2025 13:07
[2025-06-14 13:12] LABS: LEUKOCYTE ESTERASE ,URINE NEGATIVE (Neg); NITRITES, URINE NEGATIVE (Neg); OCCULT BLOOD,URINE LARGE (Neg)
[2025-06-14 13:14] LABS: UA COLLECTION TYPE CLN CATCH MIDSTREAM
--- NOTE | 2025-06-14 13:17 | RADIOLOGY REPORT ---
EXAM: CT CT HEAD INDICATION: hematoma left eye TECHNIQUE: CT of the head without intravenous contrast. Coronal and sagittal reformatted images are submitted. Radiation Dose : 1. Head: CT Dose: CTDI volume is 55.0 mGy. Dose-length product is 969.5 mGy*cm The dose indicators for CT are the volume Computed Tomography (CT) Dose Index (CTDIvol) and the Dose Length Product (DLP), and are measured in units of mGy and mGy-cm, respectively. These indicators are not patient dose, but values generated from the CT scanner acquisition factors. The report includes radiation exposure data for exposures received during this examination. All CT scans at this medical facility are performed using dose modulation techniques as appropriate to a performed exam including the following: Automated exposure control was utilized; adjustment of the MA and/or KV according to patient size; and use of iterative reconstruction technique. COMPARISON: CT CT HEAD on DOS: 11/25/24. FINDINGS: Motion artifact limits evaluation. There is a left frontal scalp high density structure measuring cord 0.4 x 1.4 cm There is no evidence of acute intracranial hemorrhage, extra-axial collection, mass effect, midline shift, herniation or hydrocephalus. The ventricles, sulci and cisterns are age appropriate. The krishna-white differentiation is intact. The mastoid air cells are clear. There is polypoid mucosal thickening in the right maxillary sinus. There is mild mucosal thickening in the left maxillary sinus. No depressed calvarial fracture. The surrounding soft tissues are unremarkable. IMPRESSION: 1. Motion degraded study. No evidence of acute intracranial hemorrhage, mass effect or hydrocephalus. 2. Left frontal scalp high density structure measuring 0.4 x 1.4 cm. This may represent a small hematoma.
[2025-06-14 13:28] LABS: SQUAMOUS EPITHELIAL CELL,UR FEW /LPF (FEW)
[2025-06-14 13:56] LABS: MEAN PLATELET VOLUME 6.6 FL (7.4-10.4); RED CELL DISTRIBUTION WIDTH 21.1 % (11.5-14.5)
[2025-06-14 14:11] LABS: CREATININE 0.58 MG/DL (0.40-0.90); TOTAL CARBON DIOXIDE 19.4 MMOL/L (24-32); eCRCL 81 ML/MIN; eGFR > 90 ML/MIN
[2025-06-14 14:26] LABS: PLATELET ESTIMATE NORMAL
[2025-06-14] MEDS: normal saline 1000ML IV soln IVB ONE (14:36)
--- NOTE | 2025-06-14 14:52 | ELECTROCARDIOGRAPH REPORT ---
[facility] Test Date: 2025-06-14 Test Time: 12:23:55 Pat Name: LAUREN BINGHAM Department: EMERGENCY ROOM Room: Gender: F Public Health Officer: SLICK : 1965 Requested By: JOE VU Order Number: [id number] Reading MD: Dr. RON Odonnell Measurements Intervals [place] Rate: 64 P: 37 MA: 186 QRS: 9 QRSD: 86 T: 31 QT: 436 QTc: 450 Interpretive Statements Sinus rhythm Electronically Signed On 06-15-2025 17:27:[address] RON Odonnell Please click the below link to view image of tracing.
[2025-06-14] MEDS: ondansetron/PF 4mg/2ml inj IV ONE (15:42)
[2025-06-14 16:49] VITALS: BP 132/84; PULSE 72; RESP 16; O2SAT 95
== END 2025-06-14 16:50 | disposition home or self-care (01) ==
LOC: ER 12:12
DX: S00.83XA Contusion of other part of head, initial encounter (principal); F10.10 Alcohol abuse, uncomplicated; I12.9 Hypertensive chronic kidney disease with stage 1 through stage 4 chronic kidney disease, or unspecified chronic kidney disease; N18.9 Chronic kidney disease, unspecified; I25.10 Atherosclerotic heart disease of native coronary artery without angina pectoris; Z85.41 Personal history of malignant neoplasm of cervix uteri; Z87.19 Personal history of other diseases of the digestive system; Z88.0 Allergy status to penicillin; Z98.890 Other specified postprocedural states; Z79.899 Other long term (current) drug therapy; Y90.9 Presence of alcohol in blood, level not specified; X58.XXXA Exposure to other specified factors, initial encounter; Y93.89 Activity, other specified; Y92.89 Other specified places as the place of occurrence of the external cause; Y99.8 Other external cause status
CPT/HCPCS: 36415; 70450; 80053; 81001; 85008; 85025; 93005; 96361; 96374; 99285; J2405; J7030

== ENCOUNTER 2025-06-16 15:48 | Emergency (ER) | payer BC, MEDICAID ==
[~2025-06-16] VITALS: Ht 157.5 cm; Wt 61.4 kg
[2025-06-16 16:01] VITALS: BP 153/96; PULSE 86; RESP 18; O2SAT 98
--- NOTE | 2025-06-16 16:41 | RADIOLOGY REPORT ---
EXAM: CT CT HEAD INDICATION: Confusion TECHNIQUE: CT images of the head were obtained without administration of IV contrast. CT scans at this facility use dose modulation, iterative reconstruction, and/or weight based dosing when appropriate to reduce radiation dose to as low as reasonably achievable. COMPARISON: CT CT HEAD on DOS: 06/14/25 FINDINGS: PARENCHYMA: No acute hemorrhage. There is no mass effect, midline shift, or herniation. There is preservation of the krishna white differentiation. Mild scattered hypoattenuation along the periventricular, centrum semiovale, and deep white matter tracts, which are nonspecific however statistically most likely represent chronic microvascular ischemic change. VENTRICLES: No hydrocephalus. EXTRA-AXIAL SPACES: No extra-axial fluid collections. OTHER: The bony structures are intact. Small amount of left forehead to frontal scalp soft tissue hematoma measuring 1.5 cm. Degenerative change of bilateral temporomandibular joints. IMPRESSION: 1. No CT evidence of an acute intracranial abnormality.
[2025-06-16] MEDS ORDERED: VITA1TAB55 PO (16:45)
--- NOTE | 2025-06-16 16:46 | Physician Documentation ---
History of Present Illness ~ Chief Complaint: Mechanical Fall Stated Complaint: FALL/CONFUSION Time Seen by MD: 15:57 Primary Medical Doctor: none HPI 59-YEAR-OLD FEMALE RETURNS TO THE EMERGENCY DEPARTMENT THREE DAYS AFTER CLOSED HEAD INJURY WITH QUESTIONABLE LOSS OF CONSCIOUSNESS. RECEIVED CT IMAGING THAT DAY WHICH WAS ALL REASSURING. REPORTS THAT SHE HAS BEEN HAVING SOME FOGGINESS IN HER BRAIN WITHOUT NAUSEA OR VOMITING OR DIZZINESS. NO VISUAL DIFFICULTIES. HER LEFT TEMPORAL AND FACIAL INJURIES ARE RESOLVING. SHE IS NOT ON BLOOD THINNERS. Tetanus within 5 Years?: No Medication Reconciliation Allergies: Coded Allergies: Penicillins (Verified Allergy, Unknown, hives, 06/16/25) HAS RECIEVED ROCEPHIN 12/2023 Scheduled Amlodipine Besylate (Amlodipine Besylate), 1 TAB PO DAILY Folic Acid (Folic Acid), 1 CAP PO DAILY Pantoprazole Sodium (Pantoprazole Sodium), 40 MG PO DAILY Thiamine HCl (Vitamin B-1), 2 TAB PO DAILY Vitamin B Complex (B Complex #1), 1 EACH PO DAILY Past Medical History Past Medical History: Seizures, Hypertension, Pneumonia, *GI/HEPATOBILIARY*, GERD, GI Bleed, Pancreatitis, Extremity Fracture, Cellulitis, Cervical Cancer/Dysplasia, Anxiety, Depression Past Surgical History: abdominal surgery, other Other Past Surgical History: Colon resection, hernia repair, colostomy Patient History: (CAD) Coronary arteriosclerosis FATHER, Name: Franki Adam, Born [birth year], Age: 91, Onset:76 (Cancer) Malignant carcinoid tumor MOTHER, Name: Tree Adam (Untreated HTN which lead to renal failure and CHF.Renal Cancer), , Age: 76, Cause: Renal failure (ARF), acute on ch ronic, Onset:50's - 60 Paternal Grandmother, , Cause: Colon cancer, Onset:60 years & older ([place]) Myocardial infarction FATHER, Name: Franki Adam, Born [birth year], Age: 91, Onset:76 No Family History of: (CABG) Coronary artery bypass grafting (CHF) Congestive heart failure (COPD) Chronic obstructive lung disease (CVA) Cerebrovascular accident (DM Type 2) Diabetes mellitus type 2 (DM Type1) Diabetes mellitus type 1 (PVD) Peripheral vascular disease (TIA) Transient ischemic attack Alzheimer's disease Aortic aneurysm Asthma Cardiac arrest Hypercholesterolemia Drug Use: none Review of Systems All Other Systems at this time: Reviewed and Negative Neurological: Reports: see HPI Physical Exam Vital Signs: Temperature: 97.3, Source: Oral, Heart Rate: 86, Respiratory Rate: 18, BP: 153/96, Pulse Oximetry: 98, Weight: 61.360 Oxygen Flow Rate: 0 General Appearance: alert, WD/WN, mild distress Head: ecchymosis (LEFT TEMPORAL AND LEFT FACE EOMS INTACT), swelling, tenderness Face: normal Eye Lid: normal inspection Pupils/EOM/Fundus: PERRLA Neck: non-tender Respiratory: lungs clear Gastrointestinal: normal palpation Back: normal inspection Pelvis: normal Neurologic: oriented x4, brake lining curer II-XII nml as tested, memory intact, oriented to time, oriented to person, oriented to place, oriented to events Motor / Sensory: no motor deficit, no sensory deficit Cerebellar function exam: normal Thoughts/Hallucinations: normal thought pattern Progress Results/Orders Results/Orders Orders - GEOFFREY DEL CASTILLO PAC Ct Head (06/16/25 16:21) Completed Orders - GEOFFREY DEL CASTILLO PAC Ct Head (06/16/25 16:21) Vital Signs 06/16/25 06/16/25 16:01 17:19 Temp 97.3 97.3 Pulse 86 Resp 18 B/P (MAP) 153/96 Pulse Ox 98 O2 Flow Rate 0 Medical Decision Making Additional information obtaine: old records Findings EXAMINATION HISTORY CONSISTENT WITH A POSTCONCUSSIVE SYNDROME WITH AGAIN REASSURING CT IMAGING OF THE HEAD. PATIENT IS DISCHARGED IN THE EMERGENCY DEPARTMENT WHILE ALERT AND ORIENTED WITH A STEADY GAIT GROSSLY NEUROLOGICALLY INTACT WITHOUT FOCAL NEURO DEFICITS. ENCOURAGED TO FOLLOW UP WITH THE PRIMARY CARE PHYSICIAN FOR CONSIDERATION OF NEUROLOGY FOLLOW UP IF SYMPTOMS PERSIST. Differential Dx:Considerations: Include: Closed head injury, Cerebral contusion, Vascular injury, Hematoma(s) Departure Disposition: 01 HOME / SELF CARE / HOMELESS Impression: Primary Impression: Post concussive syndrome Discharge Instructions: Fall Prevention in the Home, Adult, [id number] Additional Instructions: Please continue with the prescriptions as directed by your primary care physician. Please take vitamins and continue to abstain from alcohol use. Your CT imaging today is reassuring. Thank you for visiting [facility]. Referrals: NO PRIMARY CARE PROVIDER (PCP) Prescriptions Vitamin B Complex (B Complex #1) 1 Each Tablet 1 EACH PO DAILY for 30 Days, #30 TAB Prov: GEOFFREY DEL CASTILLO PAC 06/16/25 Education Educated: Patient Educated regarding: diagnosis, treatment, prognosis, need for follow up Signature Scribe Signature: . Attestation: . GEOFFREY DEL CASTILLO PAC Jun 16, 2025 16:46
[2025-06-16 17:19] VITALS: TEMP 97.3
== END 2025-06-16 17:20 | disposition home or self-care (01) ==
LOC: ER 15:49
DX: S00.83XA Contusion of other part of head, initial encounter (principal); F07.81 Postconcussional syndrome; I12.9 Hypertensive chronic kidney disease with stage 1 through stage 4 chronic kidney disease, or unspecified chronic kidney disease; N18.9 Chronic kidney disease, unspecified; I25.10 Atherosclerotic heart disease of native coronary artery without angina pectoris; K21.9 Gastro-esophageal reflux disease without esophagitis; F41.9 Anxiety disorder, unspecified; F32.A Depression, unspecified; Z85.41 Personal history of malignant neoplasm of cervix uteri; Z87.19 Personal history of other diseases of the digestive system; Z88.0 Allergy status to penicillin; Z87.01 Personal history of pneumonia (recurrent); Z98.890 Other specified postprocedural states; Z79.899 Other long term (current) drug therapy; W18.39XA Other fall on same level, initial encounter; Y93.89 Activity, other specified; Y92.89 Other specified places as the place of occurrence of the external cause; Y99.8 Other external cause status
CPT/HCPCS: 70450; 99284